=== PATIENT | male | born 1950 | race African-American/Black ===

== ENCOUNTER 2017-09-25 12:00 | Inpatient (IN) | payer OTHER ==
[2017-09-25 13:12] LABS: BASOPHIL 0.5 % (0-2.0); EOSINOPHIL 0.7 % (0-4.5); MCH 34.3 pg (25.7-33.7); MCHC 33.1 g/dl (32.0-35.9); MEAN CELL VOLUME 103.7 fl (80-96); MEAN PLT VOLUME 7.2 fl (7.5-11.1); NEUTROPHILS 74.6 % (42.8-82.8); PLATELET COUNT 194 K/MM3 (134-434); WHITE BLOOD COUNT 5.3 K/mm3 (4.0-10.0)
[2017-09-25 13:53] LABS: ALBUMIN 2.4 g/dl (3.4-5.0); ANION GAP 10 (8-16); BILIRUBIN,TOTAL 0.1 mg/dL (0.2-1.0); CALCIUM 8.4 mg/dL (8.5-10.1); CO2 19 mmol/L (21-32); GLUCOSE,RANDOM 108 mg/dL (74-106); SGOT/AST 11 U/L (15-37); SGPT/ALT 18 U/L (12-78)
[2017-09-25 13:58] LABS: ALK PHOS 101 U/L (45-117); CPK 194 IU/L (39-308); TROPONIN I < 0.02 ng/ml (0.00-0.05)
--- NOTE | 2017-09-25 13:59 | PDOC ---
History of Present Illness - General Chief Complaint: Revisit, Lab Variance Stated Complaint: LAB VARIANCE (TRANSFUSION) Time Seen by Provider: 09/25/17 12:33 History Source: Patient Exam Limitations: No Limitations - History of Present Illness Initial Comments: 09/25/17 13:59 67-year-old male with history of renal disease with sent over by Dr. David Yang for evaluation of increasing shortness of breath on exertion, fatigue, and dark stool. Patient denies chest pain, palpitations abdominal pain, nausea, bleeding gums, hematuria, or abdominal distention. Patient states has not received blood transfusions in the past. Timing/Duration: getting worse Severity: moderate Associated Symptoms: reports: shortness of breath, weakness. denies: nausea/ vomiting Past History - Travel Traveled outside of the country in the last 30 days: No - Past Medical History Allergies/Adverse Reactions: Allergies Allergy/AdvReac Type Severity Reaction Status Date / Time No Known Drug Allergies Allergy Verified 09/25/17 12:06 Home Medications: Ambulatory Orders Aspirin [Ecotrin] 81 mg PO DAILY 11/24/15 Cholecalciferol (Vitamin D3) [Vitamin D3] 1,000 unit PO DAILY #30 tablet Fenofibrate Nanocrystallized [Fenofibrate] 145 mg PO DAILY #30 tablet 04/12/16 Sildenafil Citrate [Viagra] 25 mg PO DAILY #10 tablet 04/19/16 Pravastatin Sodium [Pravachol] 40 mg PO DAILY #30 tablet 04/30/16 Amlodipine Besylate 10 mg PO DAILY #30 tablet 06/27/16 Sodium Fluoride/Potassium Nit [Prevident 5000 Enamel Protect] 100 ml DT BID #1 paste..ml. 02/13/17 Abacavir Sulfate [Ziagen -] 300 mg PO DAILY #60 tablet 03/07/17 Lamivudine [Epivir Hbv] 100 mg PO DAILY #30 tablet 05/20/17 Citalopram Hydrobromide [Citalopram HBr] 20 mg PO DAILY #30 tablet 08/20/17 Zolpidem Tartrate [Ambien] 5 mg PO HS #20 tablet MDD 5mg 08/20/17 Dolutegravir Sodium [Tivicay] 50 mg PO DAILY #30 tablet 09/03/17 Anemia: No Asthma: No Cancer: Yes (laryngeal / throat) Cardiac Disorders: No CVA: No COPD: No CHF: No DVT: No Dementia: No Diabetes: Yes GI Disorders: No Disorders: Yes HTN: Yes Hypercholesterolemia: Yes Liver Disease: No Seizures: No Thyroid Disease: Yes - Surgical History Abdominal Surgery: Yes (bilaterl inguinal hernia repair and undescend testis left) Appendectomy: No Cardiac Surgery: No Cholecystectomy: No Lung Surgery: No Neurologic Surgery: No Orthopedic Surgery: No - Reproductive History Testicular Surgery: No - Immunization History Immunization Up to Date: Yes - Suicide/Smoking/Psychosocial Hx Smoking History: Current every day smoker Have you smoked in the past 12 months: Yes Number of Cigarettes Smoked Daily: 10 Cigars Per Day: 0 Information on smoking cessation initiated: No 'Breaking Loose' booklet given: 11/27/15 Hx Alcohol Use: No Drug/Substance Use Hx: No Substance Use Type: None Hx Substance Use Treatment: Yes Patient Lives Alone: No Review of Systems - Review of Systems Able to Perform ROS?: Yes Constitutional: Yes: Weakness HEENTM: No: Symptoms Reported Respiratory: Yes: SOB with Exertion Cardiac (ROS): Yes: Lightheadedness ABD/GI: Yes: Other (dark stool). No: Symptoms Reported : No: Symptoms Reported Musculoskeletal: No: Symptoms Reported Integumentary: No: Symptoms Reported Neurological: Yes: Dizziness Hematologic/Lymphatic: Yes: See HPI *Physical Exam - Vital Signs Last Vital Signs Temp Pulse Resp BP Pulse Ox 98.2 F 103 H 16 141/68 09/25/17 12:06 09/25/17 12:06 09/25/17 12:06 09/25/17 12:06 - Physical Exam General Appearance: Yes: Nourished, Appropriately Dressed. No: Apparent Distress HEENT: positive: EOMI, VASYL, TMs Normal, Pharynx Normal. negative: Pale Conjunctivae Neck: positive: Supple Respiratory/Chest: positive: Lungs Clear, Normal Breath Sounds. negative: Respiratory Distress, Accessory Muscle Use Cardiovascular: positive: Regular Rhythm, Regular Rate (92 on monitor). negative: Murmur Gastrointestinal/Abdominal: positive: Soft. negative: Tenderness Rectal Exam: positive: other (brownish maroon stool on withdrawn glove. Sent for guaic testing). negative: hemorrhoids Extremity: positive: Normal Capillary Refill. negative: Pedal Edema Integumentary: positive: Normal Color, Dry, Warm Neurologic: positive: Motor Strength 5/5 (ambulatory) Heart Score/ECG Review - ECG Intrepretation Rhythm: Regular Rhythm (rate 87, nsr w/ sinus arrthymia) ED Treatment Course - LABORATORY CBC & Chemistry Diagram: 09/25/17 13:00 09/25/17 13:00 - ADDITIONAL ORDERS Additional order review: Laboratory Results 09/25/17 13:00 Crossmatch See Detail 09/25/17 13:00 RBC 2.01 L MCV 103.7 H MCHC 33.1 RDW 18.0 H MPV 7.2 L D Neutrophils % 74.6 Lymphocytes % 17.9 D Monocytes % 6.3 Eosinophils % 0.7 Basophils % 0.5 - RADIOLOGY Radiology Studies Ordered: Category Date Time Status CHEST PA & LAT [RAD] Stat Radiology 09/25/17 12:47 Completed Medical Decision Making - Medical Decision Making 09/25/17 13:33 Patient sent for shortness breath on exertion, lightheadedness and fatigue over the past 2 days worsening in severity. Patient sent in by storage battery inspector for evaluation of possible anemia. Patient is followed by Dr. Ba Thurman. Patient ordered for type and screen, labs, cardiac monitoring, guaiac testing, and EKG. 09/25/17 14:04 Laboratory Tests 09/25/17 09/25/17 09/25/17 13:00 13:00 13:00 WBC 5.3 Hgb 6.9 L* Hct 20.9 L MPV 7.2 L D Sodium 146 H Potassium 5.2 H Chloride 117 H Carbon Dioxide 19 L BUN 62 H Creatinine 8.6 H* Random Glucose 108 H Calcium 8.4 L Total Bilirubin 0.1 L D AST 11 L D Troponin I < 0.02 Stool Occult Blood Negative Patient ordered for 2 units of blood. Patient admitted to Dr. Loza to [facility] inpatient and consultation was placed for Dr. Nichelle Yang. Pt is followed at the [facility] for HIV. *DC/Admit/Observation/Transfer Diagnosis at time of Disposition: Encounter for blood transfusion, Anemia, Renal failure - Discharge Dispostion Admit: Yes - Referrals Referrals: Ba Thurman MD [Primary Care Provider] - - Patient Instructions - Post Discharge Activity
[2017-09-25 14:00] LABS: CREATININE 8.6 mg/dL (0.7-1.3)
--- NOTE | 2017-09-25 16:38 | CON.NEP ---
Consult Consult Specialty:: Nephrology Referred by:: Dr. 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 - History Source Limitations to Obtaining History: No Limitations - Past Medical History Cardio/Vascular: Yes: HTN, Hyperlipdemia Pulmonary: Yes: COPD Renal/: Yes: Renal Inusuff Infectious Disease: Yes: HIV - Past Surgical History Past Surgical History: Yes: Hernia Repair - Alcohol/Substance Use Hx Alcohol Use: No - Smoking History Smoking history: Current every day smoker Have you smoked in the past 12 months: Yes Aproximately how many cigarettes per day: 10 Home Medications - Allergies Allergies/Adverse Reactions: Allergies Allergy/AdvReac Type Severity Reaction Status Date / Time No Known Drug Allergies Allergy Verified 09/25/17 12:06 - Home Medications Home Medications: Ambulatory Orders Aspirin [Ecotrin] 81 mg PO DAILY 11/24/15 Cholecalciferol (Vitamin D3) [Vitamin D3] 1,000 unit PO DAILY #30 tablet Pravastatin Sodium [Pravachol] 40 mg PO DAILY #30 tablet 04/30/16 Amlodipine Besylate 10 mg PO DAILY #30 tablet 06/27/16 Sodium Fluoride/Potassium Nit [Prevident 5000 Enamel Protect] 100 ml DT BID #1 paste..ml. 02/13/17 Abacavir Sulfate [Ziagen -] 300 mg PO DAILY #60 tablet 03/07/17 Lamivudine [Epivir Hbv] 100 mg PO DAILY #30 tablet 05/20/17 Citalopram Hydrobromide [Citalopram HBr] 20 mg PO DAILY #30 tablet 08/20/17 Zolpidem Tartrate [Ambien] 5 mg PO HS #20 tablet MDD 5mg 08/20/17 Dolutegravir Sodium [Tivicay] 50 mg PO DAILY #30 tablet 09/03/17 Review of Systems - Review of Systems Constitutional: reports: Lethargy, Weakness. denies: Chills, Fever Eyes: reports: No Symptoms HENT: reports: No Symptoms Neck: reports: No Symptoms Cardiovascular: reports: Shortness of Breath. denies: Edema Respiratory: reports: SOB on Exertion. denies: Cough Gastrointestinal: reports: No Symptoms Genitourinary: reports: No Symptoms Breasts: reports: No Symptoms Reported Musculoskeletal: reports: No Symptoms Integumentary: reports: No Symptoms Neurological: reports: No Symptoms Nephrology Consult - Height Height: 6 ft 1 in - Weight Weight: 95.254 kg - BMI Body Mass Index (BMI): 27.7 - Lab Results CBC,BMP: CBC, BMP 09/25/17 13:00 09/25/17 13:00 Anion Gap: Anion Gap Anion Gap 10 (8-16) 09/25/17 13:00 - Imaging Chest X-ray: Report Reviewed - Physical Examination Vital Signs: Vital Signs Temperature 98.2 F 09/25/17 12:06 Pulse Rate 103 H 09/25/17 12:06 Respiratory Rate 16 09/25/17 12:06 Blood Pressure 141/68 09/25/17 12:06 O2 Sat by Pulse Oximetry (%) Assessment/Plan 67 year old gentleman with PMhx of 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 #Acute on Chronic Anemia #CKd stage 5 not yet on dialysis #Hypertension #DM Type 2 #HIV Stool occult bood negative check B12 and Folic acid levels as pt with high MCV To get 2 prbc today Will plan to given Epogen 67005 units in AM repeat cbc s/p transfusion no acute indication for [employer]EM[employer] PIPE repeat bmp in am continue HIV meds Will follow Full consult to follow Trey Pereyra DO
[2017-09-25 18:31] LABS: URINE APPEARANCE CLEAR; URINE BILIRUBIN NEGATIVE (NEGATIVE); URINE BLOOD NEGATIVE (NEGATIVE); URINE COLOR STRAW; URINE GLUCOSE (UA) 1+ (NEGATIVE); URINE KETONE NEGATIVE (NEGATIVE); URINE LEUK ESTERASE TRACE (NEGATIVE); URINE NITRITE NEGATIVE (NEGATIVE); URINE UROBILINOGEN NEGATIVE mg/dL (0.2-1.0)
[2017-09-25 18:49] LABS: URINE PROTEIN 2+ (NEGATIVE)
[2017-09-25 19:03] LABS: URINE BACTERIA FEW /hpf (NONE SEEN); URINE MUCUS RARE; URINE RBC 2 /hpf (0-3); URINE WBC 30 /hpf (3-5)
[2017-09-25 19:25] VITALS: BMI 25.2
[2017-09-25 19:59] LABS: URINE LEUK ESTERASE 1+ (NEGATIVE)
[2017-09-26] MEDS ORDERED: ZOLPIDEM TARTRATE 5 MG TABLET PO PRN (02:32)
--- NOTE | 2017-09-26 02:41 | HP ---
Admitting History and Physical - Past Medical History Cardiovascular: Yes: HTN, Hyperlipdemia Pulmonary: Yes: COPD Renal/: Yes: Renal Inusuff Infectious Disease: Yes: HIV - Past Surgical History Past Surgical History: Yes: Hernia Repair - Smoking History Smoking history: Current every day smoker Have you smoked in the past 12 months: Yes Aproximately how many cigarettes per day: 10 - Alcohol/Substance Use Hx Alcohol Use: No Home Medications - Allergies Allergies/Adverse Reactions: Allergies Allergy/AdvReac Type Severity Reaction Status Date / Time No Known Drug Allergies Allergy Verified 09/25/17 12:06 - Home Medications Home Medications: Ambulatory Orders Aspirin [Ecotrin] 81 mg PO DAILY 11/24/15 Cholecalciferol (Vitamin D3) [Vitamin D3] 1,000 unit PO DAILY #30 tablet Pravastatin Sodium [Pravachol] 40 mg PO DAILY #30 tablet 04/30/16 Amlodipine Besylate 10 mg PO DAILY #30 tablet 06/27/16 Sodium Fluoride/Potassium Nit [Prevident 5000 Enamel Protect] 100 ml DT BID #1 paste..ml. 02/13/17 Abacavir Sulfate [Ziagen -] 300 mg PO DAILY #60 tablet 03/07/17 Lamivudine [Epivir Hbv] 100 mg PO DAILY #30 tablet 05/20/17 Citalopram Hydrobromide [Citalopram HBr] 20 mg PO DAILY #30 tablet 08/20/17 Zolpidem Tartrate [Ambien] 5 mg PO HS #20 tablet MDD 5mg 08/20/17 Dolutegravir Sodium [Tivicay] 50 mg PO DAILY #30 tablet 09/03/17 Physical Examination Vital Signs: Vital Signs Temperature 98.3 F 09/25/17 21:00 Pulse Rate 87 09/25/17 21:00 Respiratory Rate 20 09/25/17 21:00 Blood Pressure 159/90 09/26/17 02:38 O2 Sat by Pulse Oximetry (%) 99 09/25/17 21:00 Labs: CBC, BMP 09/25/17 13:00 09/25/17 13:00
[2017-09-26 03:56] LABS: FERRITIN 20.643 ng/ml (16.4-293.9)
[2017-09-26 07:56] LABS: BASOPHIL 0.5 % (0-2.0); EOSINOPHIL 1.2 % (0-4.5); MCH 33.4 pg (25.7-33.7); MCHC 34.5 g/dl (32.0-35.9); MEAN CELL VOLUME 96.9 fl (80-96); MEAN PLT VOLUME 7.6 fl (7.5-11.1); NEUTROPHILS 67.1 % (42.8-82.8); PLATELET COUNT 170 K/MM3 (134-434); WHITE BLOOD COUNT 6.1 K/mm3 (4.0-10.0)
[2017-09-26 08:23] LABS: ANION GAP 6 (8-16); CALCIUM 7.9 mg/dL (8.5-10.1); CO2 19 mmol/L (21-32); GLUCOSE,RANDOM 94 mg/dL (74-106); MAGNESIUM 2.4 mg/dL (1.8-2.4); PHOSPHOROUS 4.6 mg/dL (2.5-4.9)
[2017-09-26 08:25] LABS: CREATININE 8.2 mg/dL (0.7-1.3)
[2017-09-26] MEDS ORDERED: PNEUMOC 13-VAL CONJ-DIP CRM/PF 0.5 ML DISP.SYRIN IM ONE (09:00)
[2017-09-26] MEDS ORDERED: [UNRECOGNIZED DRUG - OTHER] DT SCH (10:00)
[2017-09-26] MEDS ORDERED: SODIUM FLUORIDE DT SCH (10:00)
[2017-09-26] MEDS ORDERED: CITALOPRAM HYDROBROMIDE 20 MG TABLET (FP) PO SCH (10:00)
[2017-09-26] MEDS ORDERED: ASPIRIN COATED 81 MG TABLET.EC PO SCH (10:00)
[2017-09-26] MEDS ORDERED: ABACAVIR SULFATE 300 MG TABLET PO SCH (10:00)
[2017-09-26] MEDS ORDERED: DOLUTEGRAVIR SODIUM 50 MG TABLET PO SCH (10:00)
[2017-09-26] MEDS ORDERED: POTASSIUM NIT DT SCH (10:00)
[2017-09-26] MEDS ORDERED: LAMIVUDINE 100 MG PO SCH (10:00)
[2017-09-26] MEDS ORDERED: CHOLECALCIFEROL (VITAMIN D3) 1,000 UNIT TABLET (FP) PO SCH (10:00)
--- NOTE | 2017-09-26 10:47 | EKG ---
Test Reason : Blood Pressure : / mmHG Vent. Rate : 087 BPM Atrial Rate : 087 BPM P-R Int : 148 ms QRS Dur : 084 ms QT Int : 358 ms P-R-T Axes : 026 048 070 degrees QTc Int : 430 ms NORMAL SINUS RHYTHM WITH SINUS ARRHYTHMIA MINIMAL VOLTAGE CRITERIA FOR LVH, MAY BE NORMAL VARIANT NONSPECIFIC T WAVE ABNORMALITY ABNORMAL ECG WHEN COMPARED WITH ECG OF 12-APR-2006 14:28, NO SIGNIFICANT CHANGE WAS FOUND Confirmed by MD LUIS MIGUEL, DINESH ([id number]) on 09/26/2017 10:47:07 AM Referred By: Confirmed By:DINESH BOLANOS MD
[2017-09-26] MEDS ORDERED: IRON SUCROSE INJECTION 100 MG in SODIUM CHLORIDE 95 ML IVPB ONE (12:48)
--- NOTE | 2017-09-26 13:59 | PN ---
Progress Note (short form) - Note Progress Note: Renal follow up for CKD5 and Anemia Pt seen and examined at the bedside awake and alert no acute complaints feels much better Vital Signs Temperature 98.1 F 09/26/17 13:43 Pulse Rate 87 09/26/17 13:43 Respiratory Rate 20 09/26/17 13:43 Blood Pressure 154/91 09/26/17 13:43 O2 Sat by Pulse Oximetry (%) 100 09/26/17 09:00 Intake & Output 09/23/17 09/24/17 09/25/17 09/26/17 23:59 23:59 23:59 23:59 Intake Total 1340 Output Total 600 500 Balance -600 840 Weight 86.999 kg NAD RRR soft NT/ND No LE edmea CBC, BMP 09/26/17 07:35 09/26/17 07:35 Current Medications Abacavir Sulfate (Ziagen -) 300 mg PO DAILY [facility] Last Admin: 09/26/17 09:39 Dose: 300 mg Aspirin (Ecotrin -) 81 mg PO DAILY [facility] Last Admin: 09/26/17 09:37 Dose: 81 mg Atorvastatin Calcium (Lipitor -) 10 mg PO HS [facility]IMENEZ Cholecalciferol (Vitamin D3 -) 1,000 unit PO DAILY [facility] Last Admin: 09/26/17 09:38 Dose: 1,000 unit Citalopram Hydrobromide (Celexa -) 20 mg PO DAILY [facility] Last Admin: 09/26/17 09:37 Dose: 20 mg Epoetin Donovan (Procrit -) 20,000 unit SQ ONCE ONE Stop: 09/26/17 10:01 Iron Sucrose 100 mg/ Sodium (Chloride) 100 mls @ 200 mls/hr IVPB ONCE ONE Stop: 09/26/17 13:17 Non-Formulary Medication (Lamivudine [Epivir Hbv]) 100 mg PO DAILY [facility] Non-Formulary Medication (Sodium Fluoride/Potassium Nit [Prevident 5000 Enamel Protect]) 100 ml DT BID JIMENEZ Zolpidem Tartrate (Ambien -) 5 mg PO HS PRN PRN Reason: INSOMNIA 67 year old gentleman with PMhx of 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 #Acute on Chronic Anemia s/p 2 prbc transfusion good response to get Epogen 64528 units SC and Venofer 100mg IV #CKd stage 5 not yet on dialysis no acute indication for [employer] start sodium bicarb 650mg Daily outpatient HD access placement and planning ok for discharge from renal perspective Trey Pereyra DO
[2017-09-26] MEDS ORDERED: EPOETIN ALFA 20,000 UNIT/1 ML VIAL SQ ONE (16:45)
[2017-09-26 18:29] VITALS: BP 156/90; PULSE 84; TEMP 98.2
[2017-09-26] MEDS ORDERED: ATORVASTATIN CA 10 MG TABLET (FP) PO SCH (22:00)
[2017-09-27 06:11] LABS: SERUM IRON 45 ug/dL (38-169); TOTAL IRON BINDING CAPACITY 262 ug/dL (250-450); UIBC 217 ug/dL (111-343)
== END 2017-09-26 19:33 | disposition home or self-care (01) | DRG 683 ==
LOC: JER 12:00 → JERBED 14:06 → J7W 18:15
PROVIDERS: ADMIT Internal Medicine; ATTEND Internal Medicine
PROC: 30233N1 Transfusion of Nonautologous Red Blood Cells into Peripheral Vein, Percutaneous Approach (ICD-10-PCS; principal; 2017-09-25)
DX: I12.0 Hypertensive chronic kidney disease with stage 5 chronic kidney disease or end stage renal disease (principal); N18.5 Chronic kidney disease, stage 5; K92.1 Melena; D63.1 Anemia in chronic kidney disease; E11.21 Type 2 diabetes mellitus with diabetic nephropathy; E78.00 Pure hypercholesterolemia, unspecified; F17.210 Nicotine dependence, cigarettes, uncomplicated; Z21 Asymptomatic human immunodeficiency virus [HIV] infection status; J44.9 Chronic obstructive pulmonary disease, unspecified; Z85.21 Personal history of malignant neoplasm of larynx
CPT/HCPCS: 36415; 36430; 36511; 71020-TC; 80048; 80053; 81003; 81015; 82272; 82550; 82553; 82728; 83540; 83550; 83735; 84100; 84484; 84550; 85025; 86850; 86900; 86901; 86922; 90670; 93005; 93010; 99195; 99285-25; G0463-25; J0885; J1756; P9038; P9058

== ENCOUNTER 2017-11-24 14:21 | Inpatient (IN) | payer OTHER ==
--- NOTE | 2017-11-24 14:28 | PDOC ---
Rapid Medical Evaluation Time Seen by Provider: 11/24/17 14:23 Medical Evaluation: Allergies Allergy/AdvReac Type Severity Reaction Status Date / Time No Known Drug Allergies Allergy Verified 11/24/17 14:23 11/24/17 14:24 The patient presents with a chief complaint of: Needing blood transfusion, sent by Dr. Pereyra (nephrology). Had a blood transfusion one month ago here. Hx of anemia, HIV, diabetes. Denies GI bleed. Admits to palpitations, shortness of breath, lethargy I have performed a brief in-person evaluation of this patient; Pertinent physical exam findings: ambulatory, in no respiratory distress. Speaking in full sentences. VSS I have ordered the following: CBC, CMP, PT/INR, type and cross The patient will proceed to the ED for further evaluation.
--- NOTE | 2017-11-24 15:16 | PDOC ---
History of Present Illness - General History Source: Patient Exam Limitations: No Limitations - History of Present Illness Initial Comments: CHIEF COMPLAINT: 67 y/o afebrile male with PMH HTN, HLD, NIDDM, CKD, HIV, anemia, throat CA s/p RXT sent in by Dr. Pereyra for blood transfusion. HISTORY OF PRESENT ILLNESS: Patient states he had blood work drawn on Friday. He received a call today from his doctor telling him to come in for a blood transfusion. The patient states he does have the occasional dizzy spell but otherwise feels good. He denies f/c, n/v/d, Cp, SOB, palpitations. Vital signs on arrival are notable for pulse of 102. REVIEW OF SYSTEMS: GENERAL/CONSTITUTIONAL: No fever/chills. No weakness. No weight change. HEAD, EYES, EARS, NOSE AND THROAT: No change in vision. No ear pain or discharge. No sore throat. CARDIOVASCULAR: No chest pain or shortness of breath. RESPIRATORY: No cough, wheezing, or hemoptysis. GASTROINTESTINAL: No abd pain, nausea, vomiting, diarrhea. GENITOURINARY: No dysuria, frequency, or change in urination. MUSCULOSKELETAL: No joint or muscle swelling or pain. No neck or back pain. SKIN: No rash or easy bruising. NEUROLOGIC: +occasional dizziness. No headache, loss of consciousness, or loss of sensation. PHYSICAL EXAM: GENERAL: The patient is awake, alert, and fully oriented, in no acute distress. He is pleasant and well appearing. HEAD: Normal with no signs of trauma. ENT: Pupils equal, round and reactive to light, extraocular movements intact, sclera anicteric, conjunctiva clear. Gingiva pale LUNGS: Clear to auscultation bilaterally. Normal excursion. No respiratory distress or use of accessory muscles. CV: Rapid rate/regular rhythm, S1/S2, no MRG. Cap refill < 2 sec. ABDOMEN: Soft, non-distended, non-tender even to deep palpation, no hepatomegaly or splenomegaly, no masses. EXTREMITIES: Normal range of motion, no edema. NEUROLOGICAL: Normal speech, normal gait. CN II-XII grossly intact. PSYCH: Normal mood, normal affect. SKIN: Warm, dry, normal turgor, no rashes or lesions noted. <Alycia Graham - Last Filed: 11/24/17 18:48> <Nga Garcia - Last Filed: 12/01/17 12:48> - General Chief Complaint: Blood Transfusion Stated Complaint: BLOOD TRANSFUSION Time Seen by Provider: 11/24/17 14:23 Past History - Past Medical History Anemia: Yes Asthma: No Cancer: Yes (laryngeal / throat) Cardiac Disorders: No CVA: No COPD: No CHF: No DVT: No Dementia: No Diabetes: Yes GI Disorders: No Disorders: Yes HTN: Yes Hypercholesterolemia: Yes Liver Disease: No Seizures: No Thyroid Disease: Yes Other medical history: KIDNEY PROBLEMS - Surgical History Abdominal Surgery: Yes (bilaterl inguinal hernia repair and undescend testis left) Appendectomy: No Cardiac Surgery: No Cholecystectomy: No Lung Surgery: No Neurologic Surgery: No Orthopedic Surgery: No - Reproductive History Testicular Surgery: No - Immunization History Immunization Up to Date: Yes - Suicide/Smoking/Psychosocial Hx Smoking History: Current every day smoker Have you smoked in the past 12 months: Yes Number of Cigarettes Smoked Daily: 10 Cigars Per Day: 0 Information on smoking cessation initiated: Yes 'Breaking Loose' booklet given: 11/24/17 Hx Alcohol Use: No Drug/Substance Use Hx: No Substance Use Type: None Hx Substance Use Treatment: Yes <Alycia Graham - Last Filed: 11/24/17 18:48> <Nga Garcia - Last Filed: 12/01/17 12:48> - Past Medical History Allergies/Adverse Reactions: Allergies Allergy/AdvReac Type Severity Reaction Status Date / Time No Known Drug Allergies Allergy Verified 11/24/17 14:23 Home Medications: Ambulatory Orders Cholecalciferol (Vitamin D3) [Vitamin D3] 1,000 unit PO DAILY #30 tablet Pravastatin Sodium [Pravachol] 40 mg PO DAILY #30 tablet 04/30/16 Amlodipine Besylate 10 mg PO DAILY #30 tablet 06/27/16 Sodium Fluoride/Potassium Nit [Prevident 5000 Enamel Protect] 100 ml DT BID #1 paste..ml. 02/13/17 Abacavir Sulfate [Ziagen -] 300 mg PO DAILY #60 tablet 03/07/17 Lamivudine [Epivir Hbv] 100 mg PO DAILY #30 tablet 05/20/17 Dolutegravir Sodium [Tivicay] 50 mg PO DAILY #30 tablet 09/03/17 Ferrous Gluconate [Fergon -] 324 mg PO BID #60 tablet 09/26/17 Citalopram Hydrobromide [Citalopram HBr] 20 mg PO DAILY #30 tablet 10/30/17 Glipizide 2 tab PO DAILY 11/03/17 Tamsulosin HCl 1 tab PO DAILY 11/03/17 Zolpidem Tartrate [Ambien] 5 mg PO HS #30 tablet MDD 1 11/06/17 Atenolol [Tenormin] 25 mg PO DAILY #30 tablet 11/26/17 *Physical Exam - Vital Signs Last Vital Signs Temp Pulse Resp BP Pulse Ox 97.6 F 102 H 18 162/68 11/24/17 14:24 11/24/17 14:24 11/24/17 14:24 11/24/17 14:24 <Alycia Graham - Last Filed: 11/24/17 18:48> - Vital Signs Last Vital Signs Temp Pulse Resp BP Pulse Ox 97.2 F L 68 18 128/54 96 11/26/17 17:25 11/26/17 17:25 11/26/17 17:25 11/26/17 17:25 11/26/17 14:26 <Nga Garcia - Last Filed: 12/01/17 12:48> ED Treatment Course - LABORATORY CBC & Chemistry Diagram: 11/24/17 15:20 11/24/17 15:20 <Alycia Graham - Last Filed: 11/24/17 18:48> - LABORATORY CBC & Chemistry Diagram: 11/26/17 06:00 11/26/17 06:00 - ADDITIONAL ORDERS Additional order review: 11/25/17 11/25/17 11/25/17 13:22 11:49 06:45 RBC 2.56 L 2.55 L D MCV 92.1 92.7 D MCHC 32.3 32.6 RDW 24.8 H 24.9 H D MPV 6.9 L 7.0 L D Neutrophils % 71.1 Lymphocytes % 17.9 D Monocytes % 9.0 Eosinophils % 1.4 D Basophils % 0.6 POC Glucometer 114 11/25/17 11/24/17 11/24/17 06:39 23:36 15:20 RBC 1.81 L MCV 102.4 H MCHC 32.1 RDW 18.1 H MPV 7.8 Neutrophils % 80.4 Lymphocytes % 13.2 D Monocytes % 5.4 Eosinophils % 0.6 Basophils % 0.4 POC Glucometer 89 81 - Medications Given in the ED: ED Medications Discontinued Medications Generic Name Dose Route Start Last Admin Trade Name Freq PRN Reason Stop Dose Admin Abacavir Sulfate 600 mg 11/24/17 20:00 11/26/17 09:13 Ziagen - PO 600 mg DAILY [facility]IM[facility]Z Administration Albuterol/Ipratropium 1 amp 11/25/17 12:01 11/25/17 18:00 Duoneb - NEB 1 amp Q6H PRN Administration SHORTNESS OF BREATH Amlodipine Besylate 10 mg 11/24/17 20:00 11/26/17 09:13 Norvasc - PO Not Given DAILY JIMENEZ Atenolol 25 mg 11/25/17 12:15 11/26/17 09:13 Tenormin - PO Not Given DAILY JIMENEZ Atenolol 25 mg 11/26/17 13:30 11/26/17 15:07 Tenormin - PO 11/26/17 13:31 Not Given ONCE ONE Atorvastatin Calcium 10 mg 11/24/17 22:00 11/25/17 21:23 Lipitor - PO 10 mg HS [facility] Administration Cholecalciferol 1,000 unit 11/24/17 20:00 11/26/17 09:13 Vitamin D3 - PO Not Given DAILY JIMENEZ Citalopram Hydrobromide 20 mg 11/24/17 20:15 11/26/17 09:13 Celexa - PO Not Given DAILY [facility] Darbepoetin Donovan 40 mcg 11/26/17 16:09 11/26/17 18:24 Aranesp - SQ 11/26/17 16:10 40 mcg ONCE ONE Administration Ferrous Gluconate 324 mg 11/25/17 08:00 11/26/17 18:24 Fergon - PO 324 mg BIDWM JIMENEZ Administration Furosemide 20 mg 11/24/17 20:22 11/24/17 20:40 Lasix Injection - IVPUSH 11/24/17 20:23 20 mg ONCE ONE Administration Iron Sucrose 100 mg/ Sodium 100 mls @ 200 mls/hr 11/26/17 12:15 11/26/17 15: 07 Chloride IVPB 11/26/17 12:44 Not Given ONCE ONE Iron Sucrose 100 mg/ Sodium 105 mls @ 210 mls/hr 11/26/17 14:00 11/26/17 16: 10 Chloride IVPB 11/26/17 14:29 Not Given ONCE ONE Iron Sucrose 100 mg/ Sodium 105 mls @ 210 mls/hr 11/26/17 16:00 11/26/17 16: 10 Chloride IVPB 11/26/17 16:29 210 mls/hr ONCE ONE Administration Insulin Aspart 1 vial 11/24/17 22:00 11/26/17 16:57 Novolog Vial Sliding Scale - SQ Not Given ACHS JIMENEZ Protocol Lamivudine 100 mg 11/24/17 20:00 11/26/17 09:12 Epivir Oral Solution - PO 100 mg DAILY [facility] Administration Non-Formulary Medication 2 tab 11/24/17 20:00 11/24/17 20:31 Glipizide PO Not Given DAILY [facility] Oxycodone HCl 5 mg 11/26/17 13:03 11/26/17 15:34 Roxicodone - PO 11/27/17 13:02 5 mg Q4H PRN Administration Pain Level > 4 Tamsulosin HCl 0.4 mg 11/25/17 08:30 11/26/17 08:34 Flomax - PO 0.4 mg DAILY@0830 JIMENEZ Administration <Nga Garcia - Last Filed: 12/01/17 12:48> Medical Decision Making - Medical Decision Making A/P: 67 y/o male sent in by Dr. Pereyra for blood transfusion. Plan is as follows: 1. Labs 2. EKG 3. Stool for occult blood hemoglobin 5.9. Ordered 2 units PRBCs spoke with hospitalist for admission. Resident accepted for Dr. Vasquez. Patient aware of plan. *Pt is not currently on dialysis. <Alycia Graham - Last Filed: 11/24/17 18:48> *DC/Admit/Observation/Transfer - Discharge Dispostion Admit: Yes <Alycia Graham - Last Filed: 11/24/17 18:48> - Attestations Physician Attestion: I reviewed the case with the mid-level practitioner and agree with the mid- level practitioner's assessment, diagnosis and disposition. <Nga Garcia - Last Filed: 12/01/17 12:48> Diagnosis at time of Disposition: Anemia Qualifiers: Anemia type: unspecified type Qualified Code(s): D64.9 - Anemia, unspecified - Discharge Dispostion Disposition: HOME Condition at time of disposition: Improved
[2017-11-24 15:48] LABS: BASO % 0.4 % (0-2.0); EOS % 0.6 % (0-4.5); HEMATOCRIT 18.5 % (35.4-49); LYMPH % 13.2 % (8-40); MCH 32.8 pg (25.7-33.7); MCHC 32.1 g/dl (32.0-35.9); MEAN CELL VOLUME 102.4 fl (80-96); MEAN PLT VOLUME 7.8 fl (7.5-11.1); MONO % 5.4 % (3.8-10.2); NEUT % 80.4 % (42.8-82.8); PLATELET COUNT 215 K/MM3 (134-434); RBC 1.81 M/mm3 (4.00-5.60); RDW 18.1 % (11.9-15.9); RETICULOCYTES 4.12 % (0.5-1.5); WHITE BLOOD COUNT 4.6 K/mm3 (4.0-10.0)
[2017-11-24 16:01] LABS: HEMOGLOBIN 5.9 GM/dL (11.7-16.9)
[2017-11-24 16:12] LABS: INR 0.99 (0.82-1.09); PROTHROMBIN TIME (PATIENT) 11.2 SEC (9.98-11.88)
[2017-11-24 16:17] LABS: ALBUMIN 2.7 g/dl (3.4-5.0); ANION GAP 11 (8-16); BILIRUBIN,TOTAL 0.3 mg/dL (0.2-1.0); BLOOD UREA NITROGEN 71 mg/dL (7-18); CALCIUM 8.2 mg/dL (8.5-10.1); CHLORIDE 114 mmol/L (98-107); CO2 18 mmol/L (21-32); GLUCOSE,RANDOM 92 mg/dL (74-106); LDH 209 U/L (87-241); POTASSIUM 4.5 mmol/L (3.5-5.1); SGOT/AST 12 U/L (15-37); SGPT/ALT 17 U/L (12-78); SODIUM 143 mmol/L (136-145); TOT PROT 6.6 g/dl (6.4-8.2)
[2017-11-24 16:23] LABS: ALK PHOS 99 U/L (45-117)
[2017-11-24 16:29] LABS: CREATININE 9.8 mg/dL (0.7-1.3)
--- NOTE | 2017-11-24 19:09 | PN ---
Teaching Attending Note Name of Resident: Douglas Wood ATTENDING PHYSICIAN STATEMENT I saw and evaluated the patient. I reviewed the resident's note and discussed the case with the resident. I agree with the resident's findings and plan as documented. SUBJECTIVE: 67 M with HTN, HLD, COPD, HIV, hernia repair, throat ca s/p XRT who was sent in by Dr. Pereyra for blood transfusion. Pt. states he currently feels better after one transfusion. Currently denies shortness of breath, chest pain or pressure. States he still makes urine. OBJECTIVE: Physical: VS: Vital Signs Period Temp Pulse Resp BP Sys/Montes Pulse Ox Last 24 Hr 97.6 F-97.9 F 90-102 18-20 162-165/68-84 100-100 GEN: NAD, resting in bed, AA0X3 HEENT: NCAT, PERRL, poor dentition, throat without erythema or exudates CARD: RRR S1, S2 RESP: CTAB ABD: BSx4, NTD to palpation, mild distension EXT:- C/C/E CBCD WBC 4.6 K/mm3 (4.0-10.0) 11/24/17 15:20 RBC 1.81 M/mm3 (4.00-5.60) L 11/24/17 15:20 Hgb 5.9 GM/dL (11.7-16.9) L* D 11/24/17 15:20 Hct 18.5 % (35.4-49) L D 11/24/17 15:20 MCV 102.4 fl (80-96) H 11/24/17 15:20 MCHC 32.1 g/dl (32.0-35.9) 11/24/17 15:20 RDW 18.1 % (11.9-15.9) H 11/24/17 15:20 Plt Count 215 K/MM3 (134-434) D 11/24/17 15:20 MPV 7.8 fl (7.5-11.1) 11/24/17 15:20 CMP Sodium 143 mmol/L (136-145) 11/24/17 15:20 Potassium 4.5 mmol/L (3.5-5.1) 11/24/17 15:20 Chloride 114 mmol/L (98-107) H 11/24/17 15:20 Carbon Dioxide 18 mmol/L (21-32) L 11/24/17 15:20 Anion Gap 11 (8-16) 11/24/17 15:20 BUN 71 mg/dL (7-18) H 11/24/17 15:20 Creatinine 9.8 mg/dL (0.7-1.3) H* 11/24/17 15:20 Creat Clearance w eGFR 5.38 (>60) 11/24/17 15:20 Random Glucose 92 mg/dL (74-106) 11/24/17 15:20 Calcium 8.2 mg/dL (8.5-10.1) L 11/24/17 15:20 Total Bilirubin 0.3 mg/dL (0.2-1.0) D 11/24/17 15:20 AST 12 U/L (15-37) L 11/24/17 15:20 ALT 17 U/L (12-78) 11/24/17 15:20 Alkaline Phosphatase 99 U/L (45-117) 11/24/17 15:20 Total Protein 6.6 g/dl (6.4-8.2) 11/24/17 15:20 Albumin 2.7 g/dl (3.4-5.0) L 11/24/17 15:20 Ambulatory Orders Cholecalciferol (Vitamin D3) [Vitamin D3] 1,000 unit PO DAILY #30 tablet Pravastatin Sodium [Pravachol] 40 mg PO DAILY #30 tablet 04/30/16 Amlodipine Besylate 10 mg PO DAILY #30 tablet 06/27/16 Sodium Fluoride/Potassium Nit [Prevident 5000 Enamel Protect] 100 ml DT BID #1 paste..ml. 02/13/17 Abacavir Sulfate [Ziagen -] 300 mg PO DAILY #60 tablet 03/07/17 Lamivudine [Epivir Hbv] 100 mg PO DAILY #30 tablet 05/20/17 Dolutegravir Sodium [Tivicay] 50 mg PO DAILY #30 tablet 09/03/17 Ferrous Gluconate [Fergon -] 324 mg PO BID #60 tablet 09/26/17 Citalopram Hydrobromide [Citalopram HBr] 20 mg PO DAILY #30 tablet 10/30/17 Glipizide 2 tab PO DAILY 11/03/17 Nifedipine 1 tab PO DAILY 11/03/17 Tamsulosin HCl 1 tab PO DAILY 11/03/17 Zolpidem Tartrate [Ambien] 5 mg PO HS #30 tablet MDD 1 11/06/17 EKG: NSR QtC 444 ASSESSMENT AND PLAN: 67 M with HTN, HLD, COPD, HIV, hernia repair, throat ca s/p XRT who was sent in by Dr. Pereyra for blood transfusion, found to be anemic 1.) Symptomatic Anemia - Macrocytic - B12/Folate - Stool Occult- negative - CBC Q 12hr - Keep Hgb>7 - EPO level 2.) HLD - C/W Statin 3.) HIV - C/W Home meds 4.) CKD - Nephro consult 5.) Dvt Ppx - Ambulate Place in Obs-Tele
--- NOTE | 2017-11-24 19:46 | HP ---
CHIEF COMPLAINT: sent by Dr. Pereyra for blood transfusion PCP: Dr. Pereyra HISTORY OF PRESENT ILLNESS: 67 y/o M with PMH HTN, HLD, NIDDM, CKD (not on dialysis), HIV (on Ziagen, Epivir , Tivicay), hx past transfusion [facility] 09/25/17 (Hb 6.9; received 2 units PRBCs), who was sent to the ED for blood transfusion. As per pt, he had an appointment at [facility] on Friday for lab work, and Dr. Pereyra was subsequently contacted since his Hb was low. For this reason, Dr. Pereyra suggested pt come to the ED for blood transfusion. Over the last 2-3 days, pt also endorsed worsening lightheadedness and SOB (more than baseline), as well as chronic dark BMs ( takes iron), constipation and increased urinary frequency. Otherwise, he denies COX, fever, chills, palpitations, syncopal episodes, chest pain, or active bleeding. 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 Has thoughts of quitting, but hasn 't yet Alcohol: stopped drinking 8 yrs ago, previously drank 3-4 shots of liquor/ daily. States that he was in detox Drugs: smoked marijuana 30-40 yrs ago Family History: mother- recently passed from stomach cancer Allergies No Known Drug Allergies Allergy (Verified 11/24/17 14:23) HOME MEDICATIONS: Home Medications Medication Instructions Recorded Cholecalciferol (Vitamin D3) 1,000 unit PO DAILY #30 tablet 04/05/16 [Vitamin D3] Pravastatin Sodium [Pravachol] 40 mg PO DAILY #30 tablet 04/30/16 Amlodipine Besylate 10 mg PO DAILY #30 tablet 06/27/16 Sodium Fluoride/Potassium Nit 100 ml DT BID #1 paste..ml. 02/13/17 [Prevident 5000 Enamel Protect] Abacavir Sulfate [Ziagen -] 300 mg PO DAILY #60 tablet 03/07/17 Lamivudine [Epivir Hbv] 100 mg PO DAILY #30 tablet 05/20/17 Dolutegravir Sodium [Tivicay] 50 mg PO DAILY #30 tablet 09/03/17 Ferrous Gluconate [Fergon -] 324 mg PO BID #60 tablet 09/26/17 Citalopram Hydrobromide 20 mg PO DAILY #30 tablet 10/30/17 [Citalopram HBr] Glipizide 2 tab PO DAILY 11/03/17 Nifedipine 1 tab PO DAILY 11/03/17 Tamsulosin HCl 1 tab PO DAILY 11/03/17 Zolpidem Tartrate [Ambien] 5 mg PO HS #30 tablet MDD 1 11/06/17 REVIEW OF SYSTEMS CONSTITUTIONAL: Absent: fever, chills, diaphoresis, generalized weakness, malaise, loss of appetite, weight change HEENT: Absent: rhinorrhea, nasal congestion, throat pain, throat swelling, difficulty swallowing, mouth swelling, ear pain, eye pain, visual changes CARDIOVASCULAR: +lightheadedness Absent: chest pain, syncope, palpitations, irregular heart rate, peripheral edema RESPIRATORY: +SOB Absent: cough, dyspnea with exertion, orthopnea, wheezing, stridor, hemoptysis GASTROINTESTINAL: +constipation, melena Absent: abdominal pain, abdominal distension, nausea, vomiting, diarrhea, hematochezia GENITOURINARY: Absent: dysuria, frequency, urgency, hesitancy, hematuria, flank pain, genital pain MUSCULOSKELETAL: Absent: myalgia, arthralgia, joint swelling, back pain, neck pain SKIN: Absent: rash, itching, pallor HEMATOLOGIC/IMMUNOLOGIC: Absent: easy bleeding, easy bruising, lymphadenopathy, frequent infections ENDOCRINE: Absent: unexplained weight gain, unexplained weight loss, heat intolerance, cold intolerance NEUROLOGIC: Absent: headache, focal weakness or paresthesias, dizziness, unsteady gait, seizure, mental status changes, bladder or bowel incontinence PSYCHIATRIC: Absent: anxiety, depression, suicidal or homicidal ideation, hallucinations. PHYSICAL EXAMINATION Vital Signs 11/24/17 14:24 Temperature 97.6 F Pulse Rate 102 H Pulse Rate [ Right Radial] Respiratory 18 Rate Blood Pressure 162/68 Blood Pressure [Left Arm] O2 Sat by Pulse Oximetry (%) 11/24/17 18:55 Temperature 98.2 F Pulse Rate Pulse Rate [ 92 H Right Radial] Respiratory 20 Rate Blood Pressure Blood Pressure 179/90 [Left Arm] O2 Sat by Pulse 100 Oximetry (%) GENERAL: Resting comfortably. Awake, alert, and fully oriented, in no acute distress. HEAD: Normal with no signs of trauma. EYES: Pupils equal, round and reactive to light, extraocular movements intact, sclera icteric, conjunctiva clear. EARS, NOSE, THROAT: Ears normal, nares patent, oropharynx clear without exudates. Dry mucous membranes NECK: Normal range of motion, supple without lymphadenopathy LUNGS: decreased breath sounds, faint crackles appreciated lower bases HEART: Regular rate and rhythm, normal S1 and S2 without murmur, rub or gallop. ABDOMEN: Soft, nontender, mildly distended, normoactive bowel sounds, no guarding, no rebound LOWER EXTREMITIES: 2+ posterior tibial pulses, warm, well-perfused. No calf tenderness. No peripheral edema. NEUROLOGICAL: Cranial nerves II-XII intact. Laboratory Results 11/24/17 11/24/17 11/24/17 15:20 15:20 15:20 WBC 4.6 RBC 1.81 L Hgb 5.9 L* D Hct 18.5 L D MCV 102.4 H MCH 32.8 MCHC 32.1 RDW 18.1 H Plt Count 215 D MPV 7.8 Neutrophils % 80.4 Lymphocytes % 13.2 D Monocytes % 5.4 Eosinophils % 0.6 Basophils % 0.4 Retic Count 4.12 H PT with INR 11.20 INR 0.99 Sodium 143 Potassium 4.5 Chloride 114 H Carbon Dioxide 18 L Anion Gap 11 BUN 71 H Creatinine 9.8 H* Creat Clearance w eGFR 5.38 Random Glucose 92 Calcium 8.2 L Ferritin 63.763 Total Bilirubin 0.3 D AST 12 L ALT 17 Alkaline Phosphatase 99 LD Total 209 Total Protein 6.6 Albumin 2.7 L ASSESSMENT/PLAN: 67 y/o M with PMH HTN, HLD, NIDDM, CKD (not on dialysis), HIV (on Ziagen, Epivir , Tivicay), hx past transfusion [facility] 09/25/17 (Hb 6.9; received 2 units PRBCs), who was sent to the ED for blood transfusion. Pt admitted to obs-tele for follow up. #Macrocytic anemia -To receive 2U PRBCs; has received 1U thus far -Stool occult (-) -F/u post transfusion CBC -Maintain Hb>7 -Lasix 20mg IVP stat, as pt with faint crackles -F/u B12, Folate -F/u EPO level #HTN-uncontrolled -Continue amlodipine 10mg PO qd #HLD -Continue Pravastatin 40mg PO qd #NIDDM -ISS ACHS -BGM #CKD -BUN/Cr: 71/9.8 -Nephro consult- Dr. Pereyra #HIV -Continue Ziagen 300mg PO qd -Epivir 100mg PO qd -Tivicay 50mg PO qd #PPX -early ambulation #F/E/N -no fluids at this time -Monitor electrolytes -Sodium controlled and diabetic diet #Dispo Monitoring on obs tele Visit type - Emergency Visit Emergency Visit: Yes ED Registration Date: 11/24/17 Care time: The patient presented to the Emergency Department on the above date and was hospitalized for further evaluation of their emergent condition. - New Patient This patient is new to me today: Yes Date on this admission: 11/25/17 - Critical Care Critical Care patient: No
[2017-11-24] MEDS ORDERED: GLIPIZIDE PO SCH (20:00)
[2017-11-24] MEDS ORDERED: FUROSEMIDE 40 MG/4 ML INJECTABLE VIAL IVPUSH ONE (20:22)
[2017-11-24] MEDS ORDERED: amLODIPine BESYLATE 5 MG TABLET (FP) ONE (20:35)
[2017-11-24] MEDS ORDERED: FUROSEMIDE 40 MG/4 ML INJECTABLE VIAL ONE (20:35)
[2017-11-24] MEDS ORDERED: CITALOPRAM HYDROBROMIDE 10 MG TABLET (FP) ONE (20:35)
[2017-11-24] MEDS: amLODIPine BESYLATE 10 MG TABLET (FP) PO SCH ×2 (20:40→23:24)
[2017-11-24] MEDS: CITALOPRAM HYDROBROMIDE 20 MG TABLET (FP) PO SCH (20:40)
[2017-11-24] MEDS ORDERED: SODIUM FLUORIDE DT SCH (22:00)
[2017-11-24] MEDS ORDERED: ZOLPIDEM TARTRATE 5 MG TABLET PO PRN (22:00)
[2017-11-24] MEDS ORDERED: POTASSIUM NIT DT SCH (22:00)
[2017-11-24] MEDS ORDERED: [UNRECOGNIZED DRUG - OTHER] DT SCH (22:00)
[2017-11-24] MEDS: CHOLECALCIFEROL (VITAMIN D3) 1,000 UNIT TABLET (FP) PO SCH (23:23)
[2017-11-24] MEDS: ATORVASTATIN CA 10 MG TABLET (FP) PO SCH (23:24)
[2017-11-24] MEDS: lamiVUDine 10 MG/1 ML BULK BOTTLE PO SCH (23:26)
[2017-11-24] MEDS: ABACAVIR SULFATE 300 MG TABLET PO SCH (23:26)
[2017-11-24] MEDS: DOLUTEGRAVIR SODIUM 50 MG TABLET PO SCH (23:26)
[2017-11-24] MEDS: INSULIN SLIDING SCALE (NOVOLOG) 1 VIAL SQ SCH (23:59)
[2017-11-25 03:57] VITALS: BMI 23.5
[2017-11-25] MEDS: INSULIN SLIDING SCALE (NOVOLOG) 1 VIAL SQ SCH ×4 (06:39→21:22)
[2017-11-25 07:53] LABS: ANION GAP 10 (8-16); BLOOD UREA NITROGEN 70 mg/dL (7-18); CALCIUM 8.4 mg/dL (8.5-10.1); CHLORIDE 116 mmol/L (98-107); CO2 18 mmol/L (21-32); GLUCOSE,RANDOM 72 mg/dL (74-106); POTASSIUM 4.6 mmol/L (3.5-5.1); SODIUM 144 mmol/L (136-145)
[2017-11-25 08:09] LABS: BASO % 0.6 % (0-2.0); EOS % 1.4 % (0-4.5); HEMATOCRIT 23.6 % (35.4-49); HEMOGLOBIN 7.7 GM/dL (11.7-16.9); LYMPH % 17.9 % (8-40); MCH 30.2 pg (25.7-33.7); MCHC 32.6 g/dl (32.0-35.9); MEAN CELL VOLUME 92.7 fl (80-96); NEUT % 71.1 % (42.8-82.8); PLATELET COUNT 213 K/MM3 (134-434); RBC 2.55 M/mm3 (4.00-5.60); RDW 24.9 % (11.9-15.9); WHITE BLOOD COUNT 5.8 K/mm3 (4.0-10.0)
[2017-11-25 08:27] LABS: CREATININE 9.2 mg/dL (0.7-1.3)
--- NOTE | 2017-11-25 09:53 | CONSULT ---
Consult Consult Specialty:: Nephrology Referred by:: Dr. Vasquez Reason for Consultation:: CKD stage 5 - History of Present Illness Chief Complaint: i need blood History of Present Illness: 67 y/o M with PMH HTN, HLD, NIDDM, CKD stage 5 not on dialysis, HIV (on Ziagen, Epivir, Tivicay), presents to the ED at the direction of his vice president quality for blood transfusions. Patient explains he has blood work done at [facility] this past friday and was called after it was noted he had significant anemia and told to go to the ED for blood transfusions. He denies nausea vomiting fever chest pain hematuria or dysuria. He endorses increased urinary frequency lightheadedness, chills and shortness of breath. He endorses he feels better not after receiving blood transfusions. Patient still makes urine. He endorses black stools and he is on iron supplementation. In the ER patient's Hb was 5.9 and BUN/Cr 71/9.8. Patient was recently at [facility] for blood on September 25, 2017. - History Source History Provided By: Patient, Medical Record Limitations to Obtaining History: Clinical Condition - Past Medical History Cardio/Vascular: Yes: HTN, Hyperlipdemia Pulmonary: Yes: COPD Renal/: Yes: Renal Inusuff (stage 5 no on dialysis) Heme/Onc: Yes: Anemia Infectious Disease: Yes: HIV (on HAART sees Dr. Joiner at [facility] ) Endocrine: Yes: Diabetes Mellitus - Past Surgical History Past Surgical History: Yes: Hernia Repair - Alcohol/Substance Use Hx Alcohol Use: No - Smoking History Smoking history: Current every day smoker Have you smoked in the past 12 months: Yes Aproximately how many cigarettes per day: 10 Home Medications - Allergies Allergies/Adverse Reactions: Allergies Allergy/AdvReac Type Severity Reaction Status Date / Time No Known Drug Allergies Allergy Verified 11/24/17 14:23 - Home Medications Home Medications: Ambulatory Orders Cholecalciferol (Vitamin D3) [Vitamin D3] 1,000 unit PO DAILY #30 tablet Pravastatin Sodium [Pravachol] 40 mg PO DAILY #30 tablet 04/30/16 Amlodipine Besylate 10 mg PO DAILY #30 tablet 06/27/16 Sodium Fluoride/Potassium Nit [Prevident 5000 Enamel Protect] 100 ml DT BID #1 paste..ml. 02/13/17 Abacavir Sulfate [Ziagen -] 300 mg PO DAILY #60 tablet 03/07/17 Lamivudine [Epivir Hbv] 100 mg PO DAILY #30 tablet 05/20/17 Dolutegravir Sodium [Tivicay] 50 mg PO DAILY #30 tablet 09/03/17 Ferrous Gluconate [Fergon -] 324 mg PO BID #60 tablet 09/26/17 Citalopram Hydrobromide [Citalopram HBr] 20 mg PO DAILY #30 tablet 10/30/17 Glipizide 2 tab PO DAILY 11/03/17 Nifedipine 1 tab PO DAILY 11/03/17 Tamsulosin HCl 1 tab PO DAILY 11/03/17 Zolpidem Tartrate [Ambien] 5 mg PO HS #30 tablet MDD 1 11/06/17 Review of Systems - Review of Systems Constitutional: reports: Chills, Weakness Eyes: reports: No Symptoms HENT: reports: No Symptoms Cardiovascular: reports: Shortness of Breath, Other (lightheadedness) Respiratory: reports: SOB Gastrointestinal: reports: Other (black stools) Genitourinary: reports: Frequency Musculoskeletal: reports: No Symptoms Neurological: reports: No Symptoms Endocrine: reports: No Symptoms Hematology/Lymphatic: reports: Other (transfusions) Psychiatric: reports: No Symptoms Physical Exam Vital Signs: Vital Signs Temperature 98 F 11/25/17 06:00 Pulse Rate 94 H 11/25/17 06:00 Respiratory Rate 20 11/25/17 06:00 Blood Pressure 160/70 11/25/17 06:00 O2 Sat by Pulse Oximetry (%) 100 11/24/17 21:00 Constitutional: Yes: No Distress, Calm, Cachectic Eyes: Yes: Other (conjunctival pallor) HENT: No: Thrush Neck: Yes: Supple Cardiovascular: Yes: Regular Rate and Rhythm Respiratory: Yes: Diminished (at bases), Other (coarse breath sounds bilaterally worse anteriorly) Gastrointestinal: Yes: Normal Bowel Sounds, Soft. No: Tenderness Edema: No Neurological: Yes: Alert, Oriented ...Motor Strength: WNL Labs: CBC, BMP 11/25/17 06:45 11/25/17 06:45 Imaging - Results Chest X-ray: Image Reviewed Assessment/Plan 67M with multiple medical problems presents to the ED with acute on chronic symptomatic anemia requiring blood transfusion. Acute on chronic symptomatic anemia: likely due to CKD Anemia of chronic disease already received 2 units PRBCs Start epogen transfuse 2 additional units PRBCs stage 5 CKD discussed dialysis with attending and patient-patient refusing to start dialysis on this admission R/B/A expalined to patient in detail and he understands the risks, benefits and alternatives Patient amenable to having an AV graft placed and will start dialysis as outpatient avoid nephrotoxic drugs vascular Sx consult renally dose all meds continue sodium bicarb Check Phosphorus and trend Calcium levels for Renal osteodystrophy HTN: continue amlodipine atenolol added HLD: continue statin HIV: Continue HAART consider ID consult DM: ISS Fingersticks Will follow Thank you for this consultative opportunity Case discussed with attending Dr. Pereyra
[2017-11-25] MEDS ORDERED: PT OWN MED DRAWER 7, Y5N ONE (10:35)
[2017-11-25] MEDS: amLODIPine BESYLATE 10 MG TABLET (FP) PO SCH (10:44)
[2017-11-25] MEDS: CITALOPRAM HYDROBROMIDE 20 MG TABLET (FP) PO SCH (10:44)
[2017-11-25] MEDS: TAMSULOSIN HCL 0.4 MG CAP.ER.24H (FP) PO SCH (10:44)
[2017-11-25] MEDS: FERROUS GLUCONATE 324 MG TAB (FP) PO SCH ×2 (10:44→17:22)
[2017-11-25] MEDS: CHOLECALCIFEROL (VITAMIN D3) 1,000 UNIT TABLET (FP) PO SCH (10:44)
[2017-11-25] MEDS ORDERED: ALBUTEROL SO4 2.5/IPRATROPIUM 0.5 INH SOL 3 ML VIAL.NEB. NEB PRN (12:01)
--- NOTE | 2017-11-25 12:09 | PN ---
Teaching Attending Note Name of Resident: Diego Vega (Nephrology) ATTENDING PHYSICIAN STATEMENT I saw and evaluated the patient. I reviewed the resident's note and discussed the case with the resident. I agree with the resident's findings and plan as documented. SUBJECTIVE: OBJECTIVE: Vital Signs Temperature 98.2 F 11/25/17 10:00 Pulse Rate 100 H 11/25/17 10:00 Respiratory Rate 18 11/25/17 10:00 Blood Pressure 162/72 11/25/17 10:00 O2 Sat by Pulse Oximetry (%) 100 11/24/17 21:00 Intake & Output 11/22/17 11/23/17 11/24/17 11/25/17 23:59 23:59 23:59 23:59 Intake Total 750 Output Total 400 1250 Balance -400 -500 Weight 80.768 kg NAD awake and alert RRR Dec BS right lung base soft NT/ND no LE edema CBC, BMP 11/25/17 06:45 11/25/17 06:45 Current Medications Abacavir Sulfate (Ziagen -) 600 mg PO DAILY [facility] Last Admin: 11/24/17 23:26 Dose: Not Given Albuterol/Ipratropium (Duoneb -) 1 amp NEB Q6H PRN PRN Reason: SHORTNESS OF BREATH Amlodipine Besylate (Norvasc -) 10 mg PO DAILY [facility] Last Admin: 11/25/17 10:44 Dose: 10 mg Atenolol (Tenormin -) 25 mg PO DAILY [facility] Atorvastatin Calcium (Lipitor -) 10 mg PO HS [facility] Last Admin: 11/24/17 23:24 Dose: 10 mg Cholecalciferol (Vitamin D3 -) 1,000 unit PO DAILY [facility] Last Admin: 11/25/17 10:44 Dose: 1,000 unit Citalopram Hydrobromide (Celexa -) 20 mg PO DAILY [facility] Last Admin: 11/25/17 10:44 Dose: 20 mg Ferrous Gluconate (Fergon -) 324 mg PO BIDWM [facility] Last Admin: 11/25/17 10:44 Dose: 324 mg Insulin Aspart (Novolog Vial Sliding Scale -) 1 vial SQ ACHS [facility] PRN Reason: Protocol Last Admin: 11/25/17 11:50 Dose: Not Given Lamivudine (Epivir Oral Solution -) 100 mg PO DAILY [facility] Last Admin: 11/24/17 23:26 Dose: Not Given Non-Formulary Medication (Sodium Fluoride/Potassium Nit [Prevident 5000 Enamel Protect]) 100 ml DT BID [facility] Tamsulosin HCl (Flomax -) 0.4 mg PO DAILY@0830 [facility] Last Admin: 11/25/17 10:44 Dose: 0.4 mg Zolpidem Tartrate (Ambien -) 5 mg PO HS PRN PRN Reason: INSOMNIA ASSESSMENT AND PLAN: 67 year old gentleman with PMhx of 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 #Acute on Chronic Anemia Likely due to low Hgb production in setting of CKD stool occult blood is negative s/p 2 unit prbc transfused will give additional 2 units today give Epogen 57839 units SC #CKD stage 5 pt advsied that given his eGFR < 10 that he should start dialysis this admission but he refused the risks of deferring dialysis were made aware to him he is agreeable to having a AVG placed this admission will consult Dr. Lan to see him no emergent indication for dialysis at this time no ELIAS/ARB, NSAIDs continue soidum bicarb 650mg BID #Hypertension Continue Amlodpine 10mg Add Atenolol 25mg Daily Goal BP < 140/90 #Renal Osteodystrophy Check Phos and trend Ca levels Thank you Trey Pereyra DO
[2017-11-25] MEDS: ATENOLOL 25 MG TABLET (FP) PO SCH (12:45)
[2017-11-25] MEDS: ABACAVIR SULFATE 300 MG TABLET PO SCH (12:46)
[2017-11-25] MEDS: lamiVUDine 10 MG/1 ML BULK BOTTLE PO SCH (12:46)
[2017-11-25] MEDS: DOLUTEGRAVIR SODIUM 50 MG TABLET PO SCH (12:47)
[2017-11-25 13:51] LABS: HEMATOCRIT 23.6 % (35.4-49); HEMOGLOBIN 7.6 GM/dL (11.7-16.9); MCH 29.7 pg (25.7-33.7); MCHC 32.3 g/dl (32.0-35.9); MEAN CELL VOLUME 92.1 fl (80-96); MEAN PLT VOLUME 6.9 fl (7.5-11.1); PLATELET COUNT 202 K/MM3 (134-434); RBC 2.56 M/mm3 (4.00-5.60); RDW 24.8 % (11.9-15.9)
--- NOTE | 2017-11-25 13:57 | PN ---
Teaching Attending Note Name of Resident: Michael Vogel ATTENDING PHYSICIAN STATEMENT I saw and evaluated the patient. I reviewed the resident's note and discussed the case with the resident. I agree with the resident's findings and plan as documented. SUBJECTIVE:states that the dyspnea and dizzyness is now improved since completing the blood. states he has noted darker stools than usual but has also been on iron supplements for the past month. also with 30 lb weight loss since this summer when he was diagnosed with laryngeal cancer. states food hs not tasted the same since completing radiation therapy so has had no desire to eat food. 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 Symptomatic Anemia-iron def anemia seen on recent lab work from last month and started on iron supplementation. s/p 2 units PRBC overnight. will tranfuse an additional 2 units due to multiple comorbidities. FOBT negative. spoke with PMD, Dr Joiner. whom agrees likely due to medical disease and not acute blood loss. will f/u as outpatient. f/u iron supplementation 2. CKD stage V- neprhology consulted. will need HD shortly. Vascular surgery consulted for vein mapping and fistula placement 3. HTN- uncontrolled. started on atenolol by nephrology. will need to confirm home medications. (listed 2 different calcium channel blockers) 4. HIV- HARRT therapy. f/u in [facility] 5. Dysgeusia- likely due to radiation therapy. ate breakfast without difficulty. continue nephro shakes. 6. Squamous cell ca of throat- outpatient follow up 7. DVT ppx- EAM.
--- NOTE | 2017-11-25 14:24 | PN ---
Physical Exam: SUBJECTIVE: Patient seen and examined. s/p 2 Units of PRBC overnight. Says he feels much better today, especially after blood transfusion. Patient also stated he's been having darker stools the past few months but it was after he started iron supplements. He also noticed a 30 pound unintentional weight loss since the summer time after being diagnosed with laryngeal cancer. Denies sob, dizziness, fatigue, nausea, vomiting, chest pain. OBJECTIVE: Vital Signs Period Temp Pulse Resp BP Sys/Montes Pulse Ox Last 24 Hr 97.6 F-98.3 F 90-100 15-20 138-179/70-90 100-100 GENERAL: The patient is awake, alert, and fully oriented, in no acute distress. HEAD: Normal with no signs of trauma. EYES: sclera anicteric, pale conjunctiva. ENT: oropharynx clear without exudates, moist mucous membranes. NECK: supple. LUNGS: Breath sounds equal, clear to auscultation bilaterally, no wheezes, no crackles, no accessory muscle use. HEART: Regular rate and rhythm, S1, S2 without murmur, rub or gallop. ABDOMEN: Soft, nontender, nondistended, normoactive bowel sounds, no guarding, no rebound, no hepatosplenomegaly, no masses. EXTREMITIES: 2+ pulses, warm, well-perfused, no edema. NEUROLOGICAL: Cranial nerves II through XII grossly intact. Normal speech, gait not observed. PSYCH: Normal mood, normal affect. SKIN: Warm, dry, normal turgor, no rashes or lesions noted Laboratory Results - last 24 hr 11/24/17 11/24/17 11/24/17 15:20 15:20 15:20 WBC 4.6 RBC 1.81 L Hgb 5.9 L* D Hct 18.5 L D MCV 102.4 H MCH 32.8 MCHC 32.1 RDW 18.1 H Plt Count 215 D MPV 7.8 Neutrophils % 80.4 Lymphocytes % 13.2 D Monocytes % 5.4 Eosinophils % 0.6 Basophils % 0.4 Retic Count 4.12 H PT with INR 11.20 INR 0.99 Sodium 143 Potassium 4.5 Chloride 114 H Carbon Dioxide 18 L Anion Gap 11 BUN 71 H Creatinine 9.8 H* Creat Clearance w eGFR 5.38 POC Glucometer Random Glucose 92 Calcium 8.2 L Ferritin 63.763 Total Bilirubin 0.3 D AST 12 L ALT 17 Alkaline Phosphatase 99 LD Total 209 Total Protein 6.6 Albumin 2.7 L Vitamin B12 Serum Folate Stool Occult Blood Blood Type Antibody Screen Crossmatch 11/24/17 11/24/17 11/24/17 15:20 15:20 23:36 WBC RBC Hgb Hct MCV MCH MCHC RDW Plt Count MPV Neutrophils % Lymphocytes % Monocytes % Eosinophils % Basophils % Retic Count PT with INR INR Sodium Potassium Chloride Carbon Dioxide Anion Gap BUN Creatinine Creat Clearance w eGFR POC Glucometer 81 Random Glucose Calcium Ferritin Total Bilirubin AST ALT Alkaline Phosphatase LD Total Total Protein Albumin Vitamin B12 Serum Folate Stool Occult Blood Negative Blood Type O POSITIVE Antibody Screen Negative Crossmatch See Detail 11/25/17 11/25/17 11/25/17 06:39 06:45 06:45 WBC 5.8 RBC 2.55 L D Hgb 7.7 L D Hct 23.6 L D MCV 92.7 D MCH 30.2 MCHC 32.6 RDW 24.9 H D Plt Count 213 MPV 7.0 L D Neutrophils % 71.1 Lymphocytes % 17.9 D Monocytes % 9.0 Eosinophils % 1.4 D Basophils % 0.6 Retic Count PT with INR INR Sodium 144 Potassium 4.6 Chloride 116 H Carbon Dioxide 18 L Anion Gap 10 BUN 70 H Creatinine 9.2 H* Creat Clearance w eGFR POC Glucometer 89 Random Glucose 72 L D Calcium 8.4 L Ferritin Total Bilirubin AST ALT Alkaline Phosphatase LD Total Total Protein Albumin Vitamin B12 Serum Folate 14 Stool Occult Blood Blood Type Antibody Screen Crossmatch 11/25/17 11/25/17 11/25/17 06:45 11:49 13:22 WBC 6.0 RBC 2.56 L Hgb 7.6 L Hct 23.6 L MCV 92.1 MCH 29.7 MCHC 32.3 RDW 24.8 H Plt Count 202 MPV 6.9 L Neutrophils % Lymphocytes % Monocytes % Eosinophils % Basophils % Retic Count PT with INR INR Sodium Potassium Chloride Carbon Dioxide Anion Gap BUN Creatinine Creat Clearance w eGFR POC Glucometer 114 Random Glucose Calcium Ferritin Total Bilirubin AST ALT Alkaline Phosphatase LD Total Total Protein Albumin Vitamin B12 1159 H Serum Folate Stool Occult Blood Blood Type Antibody Screen Crossmatch Active Medications Generic Name Dose Route Start Last Admin Trade Name Freq PRN Reason Stop Dose Admin Abacavir Sulfate 600 mg 11/24/17 20:00 02/06/18 12:46 Ziagen - PO 600 mg DAILY JIMENEZ Administration Albuterol/Ipratropium 1 amp 11/25/17 12:01 Duoneb - NEB Q6H PRN SHORTNESS OF BREATH Amlodipine Besylate 10 mg 11/24/17 20:00 11/25/17 10:44 Norvasc - PO 10 mg DAILY JIMENEZ Administration Atenolol 25 mg 11/25/17 12:15 11/25/17 12:45 Tenormin - PO 25 mg DAILY JIMENEZ Administration Atorvastatin Calcium 10 mg 11/24/17 22:00 11/24/17 23:24 Lipitor - PO 10 mg HS JIMENEZ Administration Cholecalciferol 1,000 unit 11/24/17 20:00 11/25/17 10:44 Vitamin D3 - PO 1,000 unit DAILY JIMENEZ Administration Citalopram Hydrobromide 20 mg 11/24/17 20:15 11/25/17 10:44 Celexa - PO 20 mg DAILY JIMENEZ Administration Ferrous Gluconate 324 mg 11/25/17 08:00 11/25/17 10:44 Fergon - PO 324 mg BIDWM JIMENEZ Administration Insulin Aspart 1 vial 11/24/17 22:00 11/25/17 11:50 Novolog Vial Sliding Scale - SQ Not Given ACHS COUNT INCLUDES THE [facility] Protocol Lamivudine 100 mg 11/24/17 20:00 11/25/17 12:46 Epivir Oral Solution - PO 100 mg DAILY JIMENEZ Administration Non-Formulary Medication 100 ml 11/24/17 22:00 Sodium Fluoride/Potassium Nit [Prevident 5000 Enamel Protect] DT BID COUNT INCLUDES THE [facility] Tamsulosin HCl 0.4 mg 11/25/17 08:30 11/25/17 10:44 Flomax - PO 0.4 mg DAILY@0830 JIMENEZ Administration Zolpidem Tartrate 5 mg 11/24/17 22:00 Ambien - PO HS PRN INSOMNIA ASSESSMENT/PLAN: 67 y/o M with PMH HTN, HLD, NIDDM, CKD Stage 5 (not on dialysis), HIV (on Ziagen , Epivir, Tivicay), 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 #Symptomatic Anemia -s/p 2U PRBC 2/6 -HGb now 7.6 -2 more units planned for today. -Stool occult (-) -Maintain Hb>7 -Recent lab work showing iron def anemia and was started on iron supplemenation. -Dr. Joiner (PCP) agrees its likely due to medical dz, and not acute blood loss. -Monitor H&H #CKD Stage 5 -BUN/CR 70/9.2 -nephrology on board: Dr. Pereyra -Patient refused to start hemodialysis during this admission -Agrees for fistula placement -Vascular consulted, plan for vein mapping and fistula placement. #HTN-uncontrolled -Continue amlodipine 10mg PO qd #HLD -Continue Pravastatin 40mg PO qd #NIDDM -ISS ACHS -BGM #HIV -Continue Ziagen 300mg PO qd -Epivir 100mg PO qd -Tivicay 50mg PO qd -FU in [facility] #PPX -early ambulation #F/E/N -no fluids at this time -Monitor electrolytes -Sodium controlled and diabetic diet Visit type - Emergency Visit Emergency Visit: Yes ED Registration Date: 11/25/17 Care time: The patient presented to the Emergency Department on the above date and was hospitalized for further evaluation of their emergent condition. - New Patient This patient is new to me today: Yes Date on this admission: 11/25/17 - Critical Care Critical Care patient: No
[2017-11-25] MEDS ORDERED: INSULIN (NOVOLOG) ASPART 100 UNITS/ML 10ML VIAL ONE (20:27)
[2017-11-25] MEDS: ATORVASTATIN CA 10 MG TABLET (FP) PO SCH (21:23)
[2017-11-26] MEDS: INSULIN SLIDING SCALE (NOVOLOG) 1 VIAL SQ SCH ×3 (06:15→16:57)
[2017-11-26] MEDS ORDERED: PT OWN MED DRAWER 7, Y5N ONE ×2 (08:02→09:07)
[2017-11-26 08:18] LABS: ALBUMIN 2.5 g/dl (3.4-5.0); ANION GAP 11 (8-16); BILIRUBIN,TOTAL 0.6 mg/dL (0.2-1.0); BLOOD UREA NITROGEN 68 mg/dL (7-18); CALCIUM 8.6 mg/dL (8.5-10.1); CHLORIDE 115 mmol/L (98-107); CO2 18 mmol/L (21-32); GLUCOSE,RANDOM 88 mg/dL (74-106); MAGNESIUM 2.4 mg/dL (1.8-2.4); POTASSIUM 4.9 mmol/L (3.5-5.1); SGOT/AST 11 U/L (15-37); SGPT/ALT 18 U/L (12-78); SODIUM 144 mmol/L (136-145); TOT PROT 6.4 g/dl (6.4-8.2)
[2017-11-26 08:25] LABS: BASO % 0.6 % (0-2.0); EOS % 1.4 % (0-4.5); HEMATOCRIT 31.9 % (35.4-49); HEMOGLOBIN 10.5 GM/dL (11.7-16.9); LYMPH % 17.9 % (8-40); MCH 29.9 pg (25.7-33.7); MEAN CELL VOLUME 90.6 fl (80-96); MEAN PLT VOLUME 7.3 fl (7.5-11.1); MONO % 8.1 % (3.8-10.2); PLATELET COUNT 203 K/MM3 (134-434); RBC 3.52 M/mm3 (4.00-5.60); RDW 22.5 % (11.9-15.9)
[2017-11-26 08:27] LABS: ALK PHOS 103 U/L (45-117)
[2017-11-26] MEDS: ATENOLOL 25 MG TABLET (FP) PO SCH ×2 (08:34→09:13)
[2017-11-26] MEDS: CITALOPRAM HYDROBROMIDE 20 MG TABLET (FP) PO SCH ×2 (08:34→09:13)
[2017-11-26] MEDS: CHOLECALCIFEROL (VITAMIN D3) 1,000 UNIT TABLET (FP) PO SCH ×2 (08:34→09:13)
[2017-11-26] MEDS: TAMSULOSIN HCL 0.4 MG CAP.ER.24H (FP) PO SCH (08:34)
[2017-11-26] MEDS: amLODIPine BESYLATE 10 MG TABLET (FP) PO SCH ×2 (08:35→09:13)
[2017-11-26] MEDS: FERROUS GLUCONATE 324 MG TAB (FP) PO SCH ×2 (08:36→18:24)
[2017-11-26] MEDS: lamiVUDine 10 MG/1 ML BULK BOTTLE PO SCH (09:12)
[2017-11-26] MEDS: DOLUTEGRAVIR SODIUM 50 MG TABLET PO SCH (09:13)
[2017-11-26] MEDS: ABACAVIR SULFATE 300 MG TABLET PO SCH (09:13)
[2017-11-26] MEDS ORDERED: HEPARIN NA (PORCINE) 5,000 UNITS/ML 1ML VIAL ONE ×2 (09:37→11:15)
[2017-11-26] MEDS ORDERED: LIDOCAINE HCL 1%, 10 MG/ML (20ML VIAL) ONE (09:37)
[2017-11-26] MEDS ORDERED: PROPOFOL 20 ML ONE ×3 (10:01)
[2017-11-26] MEDS ORDERED: SUCCINYLCHOLINE CHLORIDE 200 MG/10 ML VIAL ONE (10:01)
[2017-11-26] MEDS ORDERED: MIDAZOLAM HCL 2 MG/2 ML SINGLE DOSE VIAL ONE ×2 (10:02)
[2017-11-26 10:13] LABS: SERUM IRON SATURATION 19 % (15-55); TOTAL IRON BINDING CAPACITY 241 ug/dL (250-450); UIBC 195 ug/dL (111-343)
[2017-11-26] MEDS ORDERED: ceFAZolin SODIUM 1 GM VIAL IVPB ONE (10:40)
[2017-11-26] MEDS ORDERED: ceFAZolin SODIUM 1 GM VIAL ONE (10:55)
[2017-11-26] MEDS ORDERED: ePHEDrine SULFATE 50 MG/1 ML AMPULE ONE (10:55)
[2017-11-26] MEDS ORDERED: ROCURONIUM BROMIDE 50 MG/5 ML VIAL ONE (11:02)
--- NOTE | 2017-11-26 11:30 | EKG ---
Test Reason : Blood Pressure : / mmHG Vent. Rate : 084 BPM Atrial Rate : 084 BPM P-R Int : 158 ms QRS Dur : 094 ms QT Int : 376 ms P-R-T Axes : 012 040 063 degrees QTc Int : 444 ms NORMAL SINUS RHYTHM MINIMAL VOLTAGE CRITERIA FOR LVH, MAY BE NORMAL VARIANT NONSPECIFIC T WAVE ABNORMALITY ABNORMAL ECG WHEN COMPARED WITH ECG OF 25-SEP-2017 13:48, NO SIGNIFICANT CHANGE WAS FOUND Confirmed by LINH VILLATORO MD ([id number]) on 11/26/2017 11:30:06 AM Referred By: Confirmed By:LINH VILLATORO MD
[2017-11-26] MEDS ORDERED: IRON SUCROSE INJECTION 100 MG in SODIUM CHLORIDE 95 ML IVPB ONE (12:15)
[2017-11-26] MEDS ORDERED: POVIDONE-IODINE OINTMENT 10% - 28.4 GM TUBE ONE (12:19)
[2017-11-26] MEDS ORDERED: NEOSTIGMINE METHYLSULFATE 0.5 MG/ML - 10 ML MDV ONE (12:20)
[2017-11-26] MEDS ORDERED: GLYCOPYRROLATE 0.2 MG/1 ML VIAL ONE (12:23)
--- NOTE | 2017-11-26 12:52 | PN ---
Teaching Attending Note Name of Resident: Michael Vogel ATTENDING PHYSICIAN STATEMENT I saw and evaluated the patient. I reviewed the resident's note and discussed the case with the resident. I agree with the resident's findings and plan as documented. SUBJECTIVE:asymptomatic. states he no longer feels dyspnic at rest or lethargic. 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 Symptomatic Anemia- total of 4 units PRBC this admission with good response. Iron deficiency noted on recent hospitalization. most likely from comorbidities can f/u with PMD for further workup 2. CKD stage V- NPO for AV graft placement today. 3. HTN- uncontrolled. will increase atenolol. on max doses of norvasc. 4. HIV- HARRT therapy. f/u in [facility] 5. Hyperphosphatemia- dietary restrictions 6. Dysgeusia- likely due to radiation therapy. ate breakfast without difficulty. continue nephro shakes. 7. Squamous cell ca of throat- outpatient follow up 8. DVT ppx- EAM. 9. can d/c home after procedure
--- NOTE | 2017-11-26 12:52 | OP ---
Operative Note - Note: Operative Date: 11/26/17 Pre-Operative Diagnosis: ESRD Operation: Insertion of left avg Post-Operative Diagnosis: Same as Pre-op Surgeon: Arnold Lan Anesthesia: General Estimated Blood Loss (mls): 50 Operative Report Dictated: Yes
[2017-11-26] MEDS ORDERED: ONDANSETRON 4 MG/2 ML VIAL IVPUSH PRN (13:03)
[2017-11-26] MEDS ORDERED: oxyCODONE HCL 5 MG TABLET PO PRN (13:03)
--- NOTE | 2017-11-26 13:19 | DS ---
Physical Exam: SUBJECTIVE: Patient seen and examined. S/p 4 Units PRBC in last 24 hours. Patient offers no new complaints. Says he feels better after transfusions. Denies fevers, nausea, vomiting, weakness, dizziness, and SOB. OBJECTIVE: Vital Signs Period Temp Pulse Resp BP Sys/Montes Pulse Ox Last 24 Hr 97.8 F-98.4 F 74-93 15-20 129-182/64-88 100-100 PHYSICAL EXAM GENERAL: The patient is awake, alert, and fully oriented, in no acute distress. HEAD: Normal with no signs of trauma. EYES: sclera anicteric, pale conjunctiva. ENT: oropharynx clear without exudates, moist mucous membranes. NECK: supple. LUNGS: Breath sounds equal, clear to auscultation bilaterally, no wheezes, no crackles, no accessory muscle use. HEART: Regular rate and rhythm, S1, S2 without murmur, rub or gallop. ABDOMEN: Soft, nontender, nondistended, normoactive bowel sounds, no guarding, no rebound, no hepatosplenomegaly, no masses. EXTREMITIES: 2+ pulses, warm, well-perfused, no edema. NEUROLOGICAL: Cranial nerves II through XII grossly intact. Normal speech, gait not observed. PSYCH: Normal mood, normal affect. SKIN: Warm, dry, normal turgor, no rashes or lesions noted LABS Laboratory Results - last 24 hr 11/24/17 11/24/17 11/25/17 15:20 15:20 06:45 WBC RBC Hgb Hct MCV MCH MCHC RDW Plt Count MPV Neutrophils % Lymphocytes % Monocytes % Eosinophils % Basophils % Sodium Potassium Chloride Carbon Dioxide Anion Gap BUN Creatinine Creat Clearance w eGFR POC Glucometer Random Glucose Calcium Phosphorus Magnesium Iron TIBC Iron Saturation Transferrin 223 Erythropoietin 14.7 Total Bilirubin AST ALT Alkaline Phosphatase Total Protein Albumin Blood Type O POSITIVE Antibody Screen Negative Crossmatch See Detail 11/25/17 11/25/17 11/25/17 06:45 13:22 21:20 WBC 6.0 RBC 2.56 L Hgb 7.6 L Hct 23.6 L MCV 92.1 MCH 29.7 MCHC 32.3 RDW 24.8 H Plt Count 202 MPV 6.9 L Neutrophils % Lymphocytes % Monocytes % Eosinophils % Basophils % Sodium Potassium Chloride Carbon Dioxide Anion Gap BUN Creatinine Creat Clearance w eGFR POC Glucometer 181 Random Glucose Calcium Phosphorus Magnesium Iron 46 TIBC 241 L Iron Saturation 19 Transferrin Erythropoietin Total Bilirubin AST ALT Alkaline Phosphatase Total Protein Albumin Blood Type Antibody Screen Crossmatch 11/26/17 11/26/17 11/26/17 06:00 06:00 06:14 WBC 7.0 RBC 3.52 L D Hgb 10.5 L D Hct 31.9 L D MCV 90.6 MCH 29.9 MCHC 33.0 RDW 22.5 H Plt Count 203 MPV 7.3 L Neutrophils % 72.0 Lymphocytes % 17.9 Monocytes % 8.1 Eosinophils % 1.4 Basophils % 0.6 Sodium 144 Potassium 4.9 Chloride 115 H Carbon Dioxide 18 L Anion Gap 11 BUN 68 H Creatinine 9.0 H* Creat Clearance w eGFR 6.02 POC Glucometer 103 Random Glucose 88 D Calcium 8.6 Phosphorus 5.0 H Magnesium 2.4 Iron TIBC Iron Saturation Transferrin Erythropoietin Total Bilirubin 0.6 D AST 11 L ALT 18 Alkaline Phosphatase 103 Total Protein 6.4 Albumin 2.5 L Blood Type Antibody Screen Crossmatch HOSPITAL COURSE: Date of Admission:11/25/17 Date of Discharge: 11/26/17 Discharge Summary Reason For Visit: ANEMIA Current Active Problems Anemia (Acute) Condition: Stable - Instructions - Home Medications Comprehensive Discharge Medication List: Ambulatory Orders RX: Cholecalciferol (Vitamin D3) [Vitamin D3] 1,000 unit PO DAILY #30 tablet RX: Pravastatin Sodium [Pravachol] 40 mg PO DAILY #30 tablet 04/30/16 RX: Amlodipine Besylate 10 mg PO DAILY #30 tablet 06/27/16 RX: Sodium Fluoride/Potassium Nit [Prevident 5000 Enamel Protect] 100 ml DT BID #1 paste..ml. 02/13/17 RX: Abacavir Sulfate [Ziagen -] 300 mg PO DAILY #60 tablet 03/07/17 RX: Lamivudine [Epivir Hbv] 100 mg PO DAILY #30 tablet 05/20/17 RX: Dolutegravir Sodium [Tivicay] 50 mg PO DAILY #30 tablet 09/03/17 RX: Ferrous Gluconate [Fergon -] 324 mg PO BID #60 tablet 09/26/17 RX: Citalopram Hydrobromide [Citalopram HBr] 20 mg PO DAILY #30 tablet 10/30/17 Glipizide 2 tab PO DAILY 11/03/17 Nifedipine 1 tab PO DAILY 11/03/17 Tamsulosin HCl 1 tab PO DAILY 11/03/17 Zolpidem Tartrate [Ambien] 5 mg PO HS #30 tablet MDD 1 11/06/17 RX: Finasteride 5 mg PO 11/25/17
[2017-11-26] MEDS ORDERED: ATENOLOL 25 MG TABLET (FP) PO ONE (13:30)
[2017-11-26] MEDS ORDERED: IRON SUCROSE INJECTION 100 MG in SODIUM CHLORIDE 100 ML IVPB ONE ×2 (14:00→16:00)
[2017-11-26] MEDS ORDERED: Darbepoetin Alfa in Polysorbat 40 MCG/0.4 DISP.SYRIN SQ ONE (16:09)
--- NOTE | 2017-11-26 16:10 | PN ---
Progress Note (short form) - Note Progress Note: Renal follow up for CKD stage 5 and Acute Anemia Pt seen and examined at the bedside s/p AVG placement feels very groggy no sob, chest pain, abd pain + pain at surgical site Vital Signs Temperature 97.5 F L 11/26/17 14:54 Pulse Rate 67 11/26/17 14:26 Respiratory Rate 16 11/26/17 14:26 Blood Pressure 118/61 11/26/17 14:26 O2 Sat by Pulse Oximetry (%) 96 11/26/17 14:26 Intake & Output 11/23/17 11/24/17 11/25/17 11/26/17 23:59 23:59 23:59 23:59 Intake Total 1200 1150 Output Total 400 1250 950 Balance -400 -50 200 Weight 80.768 kg NAD awake and alert RRR CTA soft NT NO LE edema CBC, BMP 11/26/17 06:00 11/26/17 06:00 Current Medications Abacavir Sulfate (Ziagen -) 600 mg PO DAILY [facility] Last Admin: 11/26/17 09:13 Dose: 600 mg Albuterol/Ipratropium (Duoneb -) 1 amp NEB Q6H PRN PRN Reason: SHORTNESS OF BREATH Last Admin: 11/25/17 18:00 Dose: 1 amp Amlodipine Besylate (Norvasc -) 10 mg PO DAILY [facility] Last Admin: 11/26/17 09:13 Dose: Not Given Atenolol (Tenormin -) 25 mg PO DAILY [facility] Last Admin: 11/26/17 09:13 Dose: Not Given Atorvastatin Calcium (Lipitor -) 10 mg PO HS [facility] Last Admin: 11/25/17 21:23 Dose: 10 mg Cholecalciferol (Vitamin D3 -) 1,000 unit PO DAILY [facility] Last Admin: 11/26/17 09:13 Dose: Not Given Citalopram Hydrobromide (Celexa -) 20 mg PO DAILY [facility] Last Admin: 11/26/17 09:13 Dose: Not Given Fentanyl (Sublimaze Injection -) 25 mcg IVPUSH [id number] PRN PRN Reason: PAIN-PACU ORDER X 4 DOSES ONLY Ferrous Gluconate (Fergon -) 324 mg PO BIDWM [facility] Last Admin: 11/26/17 08:36 Dose: 324 mg Iron Sucrose 100 mg/ Sodium (Chloride) 105 mls @ 210 mls/hr IVPB ONCE ONE Stop: 11/26/17 16:29 Insulin Aspart (Novolog Vial Sliding Scale -) 1 vial SQ ACHS JIMENEZ PRN Reason: Protocol Last Admin: 11/26/17 11:23 Dose: Not Given Lamivudine (Epivir Oral Solution -) 100 mg PO DAILY [facility] Last Admin: 11/26/17 09:12 Dose: 100 mg Non-Formulary Medication (Sodium Fluoride/Potassium Nit [Prevident 5000 Enamel Protect]) 100 ml DT BID [facility] Ondansetron HCl (Zofran Injection) 4 mg IVPUSH Q6H PRN PRN Reason: NAUSEA AND/OR VOMITING Oxycodone HCl (Roxicodone -) 5 mg PO Q4H PRN PRN Reason: Pain Level > 4 Stop: 11/27/17 13:02 Last Admin: 11/26/17 15:34 Dose: 5 mg Tamsulosin HCl (Flomax -) 0.4 mg PO DAILY@0830 [facility] Last Admin: 11/26/17 08:34 Dose: 0.4 mg Zolpidem Tartrate (Ambien -) 5 mg PO HS PRN PRN Reason: INSOMNIA 67 year old gentleman with PMhx of 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 #Acute on Chronic Anemia Hgb levels responded well to transfusion jose give Venofer 100mg IV x 1 and aransep SC x 1 today will continue DIONNA as outpatient #CKD stage 5 s/p AVG placement deferred starting dialysis as inpatient to follow up in our office next week #Hypertension Continue Amlodpine 10mg Add Atenolol 25mg Daily Goal BP < 140/90 #Renal Osteodystrophy Check Phos and trend Ca levels low phos diet Thank you Trey Pereyra DO
--- NOTE | 2017-11-26 16:57 | DS ---
Physical Exam: SUBJECTIVE: Patient seen and examined. S/p 4 Units PRBC in last 24 hours. Patient offers no new complaints. Says he feels better after transfusions. Denies fevers, nausea, vomiting, weakness, dizziness, and SOB. OBJECTIVE: Vital Signs Period Temp Pulse Resp BP Sys/Montes Pulse Ox Last 24 Hr 97.5 F-98.4 F 67-83 15-20 118-182/61-88 96-100 PHYSICAL EXAM GENERAL: The patient is awake, alert, and fully oriented, in no acute distress. HEAD: Normal with no signs of trauma. EYES: sclera anicteric, pale conjunctiva. ENT: oropharynx clear without exudates, moist mucous membranes. NECK: supple. LUNGS: Breath sounds equal, clear to auscultation bilaterally, no wheezes, no crackles, no accessory muscle use. HEART: Regular rate and rhythm, S1, S2 without murmur, rub or gallop. ABDOMEN: Soft, nontender, nondistended, normoactive bowel sounds, no guarding, no rebound, no hepatosplenomegaly, no masses. EXTREMITIES: 2+ pulses, warm, well-perfused, no edema. NEUROLOGICAL: Cranial nerves II through XII grossly intact. Normal speech, gait not observed. PSYCH: Normal mood, normal affect. SKIN: Warm, dry, normal turgor, no rashes or lesions noted LABS Laboratory Results - last 24 hr 11/24/17 11/24/17 11/25/17 15:20 15:20 06:45 WBC RBC Hgb Hct MCV MCH MCHC RDW Plt Count MPV Neutrophils % Lymphocytes % Monocytes % Eosinophils % Basophils % Sodium Potassium Chloride Carbon Dioxide Anion Gap BUN Creatinine Creat Clearance w eGFR POC Glucometer Random Glucose Calcium Phosphorus Magnesium Iron TIBC Iron Saturation Transferrin 223 Erythropoietin 14.7 Total Bilirubin AST ALT Alkaline Phosphatase Total Protein Albumin Blood Type O POSITIVE Antibody Screen Negative Crossmatch See Detail 11/25/17 11/25/17 11/26/17 06:45 21:20 06:00 WBC 7.0 RBC 3.52 L D Hgb 10.5 L D Hct 31.9 L D MCV 90.6 MCH 29.9 MCHC 33.0 RDW 22.5 H Plt Count 203 MPV 7.3 L Neutrophils % 72.0 Lymphocytes % 17.9 Monocytes % 8.1 Eosinophils % 1.4 Basophils % 0.6 Sodium Potassium Chloride Carbon Dioxide Anion Gap BUN Creatinine Creat Clearance w eGFR POC Glucometer 181 Random Glucose Calcium Phosphorus Magnesium Iron 46 TIBC 241 L Iron Saturation 19 Transferrin Erythropoietin Total Bilirubin AST ALT Alkaline Phosphatase Total Protein Albumin Blood Type Antibody Screen Crossmatch 11/26/17 11/26/17 06:00 06:14 WBC RBC Hgb Hct MCV MCH MCHC RDW Plt Count MPV Neutrophils % Lymphocytes % Monocytes % Eosinophils % Basophils % Sodium 144 Potassium 4.9 Chloride 115 H Carbon Dioxide 18 L Anion Gap 11 BUN 68 H Creatinine 9.0 H* Creat Clearance w eGFR 6.02 POC Glucometer 103 Random Glucose 88 D Calcium 8.6 Phosphorus 5.0 H Magnesium 2.4 Iron TIBC Iron Saturation Transferrin Erythropoietin Total Bilirubin 0.6 D AST 11 L ALT 18 Alkaline Phosphatase 103 Total Protein 6.4 Albumin 2.5 L Blood Type Antibody Screen Crossmatch HOSPITAL COURSE: Date of Admission:11/25/17 67 y/o M with PMH HTN, HLD, NIDDM, CKD (not on dialysis), HIV (on Ziagen, Epivir , Tivicay), hx past transfusion [facility] 09/25/17 (Hb 6.9; received 2 units PRBCs), who was sent to the ED for blood transfusion by Dr. Pereyra. For this reason, Dr. Pereyra suggested pt come to the ED for blood transfusion. Also pt endorsed worsening lightheadedness and SOB (more than baseline), constipation and increased urinary frequency. Patient was treated with 4 Units of PRBC. He responded to the transfusion appropriately. Patient also has Stage 5 CKD. Hemodialysis on admission was recommended but patient wanted to start outpatient. Graft was placed on patient and patient agreed to start outpatient HD. He is to follow up with Dr. Pereyra in 1 week. Patient clinically improved and was medically cleared for discharge. Patient will also follow up at the [facility] for his HIV. Date of Discharge: 11/26/17 Minutes to complete discharge: 35 Discharge Summary Reason For Visit: ANEMIA Current Active Problems Anemia (Acute) Hypertension (Acute) CKD (chronic kidney disease) requiring chronic dialysis (Chronic) HIV (human immunodeficiency virus infection) (Chronic) Laryngeal cancer (Chronic) Condition: Improved - Instructions Diet, Activity, Other Instructions: You were admitted because of Anemia. You were given 4 Units of blood during this admission. You also had a graft placed in your arm so that you can be started on hemodialysis in the near future. 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 A handout of what to avoid has been provided. You will also need to follow up with your primary care physician in 1 week. You should have your blood pressure checked and blood work repeated to look for anemia. Your home medications have changed. Please refer to medication list for these changes. If you feel your symptoms are worsening please call your doctor or go to the nearest emergency. Referrals: Jefry Joiner MD [Staff Physician] - Trey Pereyra MD [Staff Physician] - Disposition: HOME - Home Medications Comprehensive Discharge Medication List: Ambulatory Orders Cholecalciferol (Vitamin D3) [Vitamin D3] 1,000 unit PO DAILY #30 tablet Pravastatin Sodium [Pravachol] 40 mg PO DAILY #30 tablet 04/30/16 Amlodipine Besylate 10 mg PO DAILY #30 tablet 06/27/16 Sodium Fluoride/Potassium Nit [Prevident 5000 Enamel Protect] 100 ml DT BID #1 paste..ml. 02/13/17 Abacavir Sulfate [Ziagen -] 300 mg PO DAILY #60 tablet 03/07/17 Lamivudine [Epivir Hbv] 100 mg PO DAILY #30 tablet 05/20/17 Dolutegravir Sodium [Tivicay] 50 mg PO DAILY #30 tablet 09/03/17 Ferrous Gluconate [Fergon -] 324 mg PO BID #60 tablet 09/26/17 Citalopram Hydrobromide [Citalopram HBr] 20 mg PO DAILY #30 tablet 10/30/17 Glipizide 2 tab PO DAILY 11/03/17 Tamsulosin HCl 1 tab PO DAILY 11/03/17 Zolpidem Tartrate [Ambien] 5 mg PO HS #30 tablet MDD 1 11/06/17 Atenolol [Tenormin] 25 mg PO DAILY #30 tablet 11/26/17 This patient is new to me today: No Emergency Visit: Yes ED Registration Date: 11/25/17 Care time: The patient presented to the Emergency Department on the above date and was hospitalized for further evaluation of their emergent condition. Critical Care patient: No - Discharge Referral Referred to [facility] No
[2017-11-26 17:26] VITALS: BP 128/54; PULSE 68; TEMP 97.2
--- NOTE | 2017-11-27 06:45 | OP ---
DATE OF OPERATION: 11/26/2017 PREOPERATIVE DIAGNOSIS: End-stage renal disease. POSTOPERATIVE DIAGNOSIS: End-stage renal disease. PROCEDURE PERFORMED: Insertion of left arteriovenous graft. SURGEON: Arnold Rhodes DO ANESTHESIA: General. BLOOD LOSS: 50 mL. INDICATIONS: The patient is a 67-year-old male who is in the hospital due to fact that he is sick from acute renal failure and now needs permanent dialysis access. He had vein mapping performed preoperatively, showing that he does not have good veins in his left upper extremity. Due to the acuity of his dialysis, we decided to place a graft. DESCRIPTION OF PROCEDURE: The patient was consented for the procedure, understanding all the risks, benefits and alternatives, and taken to the operating room. Once in the operating room, the patient was laid on the operating table in the supine manner. The area of the left arm was prepped and draped in the sterile surgical manner. Under ultrasound guidance, we mapped out our brachial artery and our axillary vein, and those were marked using a skin marker. We then went ahead and waited the patient was under general anesthesia. We then went ahead and used a number 15 blade and made a 5-cm incision over the left axillary vein. Bovie electrocautery was used to control hemostasis. We got down to the level of the subcutaneous tissue, taking care not to injure any nerves. We got down to the brachial artery and the axillary artery. Then we found the axillary nerve and the vein. The axillary vein was then dissected anteriorly and posteriorly, and vessel loops were placed around it. We took care not to injure the artery or the nerve. At this point we went down to above the antecubital fossa. Went ahead and made a 5-cm incision over the brachial artery. Bovie electrocautery was used to control hemostasis. We got down through all the subcutaneous tissue and got down to the brachial sheath. The brachial sheath was then opened, and we dissected the artery and the vein. We dissected the artery anteriorly and posteriorly, and vessel loops were placed proximally and distally. We then took a tunneler and tunneled the tunneler from the arterial portion to the venous portion. We then attached a 4 to 7 Propaten AV graft to it and tunneled the graft across. IV heparin 5000 units was then administered to the patient. After 3 minutes, we got distal and proximal control on our artery. Using a 15 blade, we made an arteriotomy, which was extended to 7 mm using Dawson scissors. We beveled our graft to 7 mm as well. We then placed 6-0 Prolene stay sutures on the artery. We then used 6-0 Prolene double-armed and went outside-in on the graft and inside-out on the artery and ran the stitch around, forming an anastomosis between the artery and the graft. Once completed, we opened the distal artery first and then the proximal artery, and there was good flow in the AV graft. The graft was clamped, and we then flushed it with heparinized saline. We then cut the graft to size and beveled it to 1 cm. We then went ahead and got distal and proximal control on our vein. Using a 15 blade, we made a venotomy, which was extended to 1 mm using Dawson scissors. We then placed 6-0 Prolene stay sutures. We then used 6-0 Prolene double-armed and went outside-in on the graft and inside-out on the vein and ran the stitch around, forming an anastomosis between the vein and the graft. Once completed, we opened the distal vein first and then the proximal vein. We then unclamped our proximal AV graft, and there was a good thrill in our AV graft. We went ahead and irrigated both wounds copiously. Surgicel was placed. 3-0 Vicryl was used and the subcutaneous tissue was approximated in an interrupted manner for both wounds, and the skin was closed with skin julia for both wounds. The area was wet and dried. 4 x 4s and Tegaderm were placed. The patient tolerated the procedure with no complication. The patient was transferred to PACU in stable condition. ARNOLD RHODES DO [id number]
== END 2017-11-26 20:06 | disposition home or self-care (01) | DRG 673 ==
LOC: JER 14:21 → JERBED 18:47 → J7W 20:57 → OBSVTOIN 11-25 13:38
PROVIDERS: ADMIT Internal Medicine; ATTEND Internal Medicine
PROC: 30233N1 Transfusion of Nonautologous Red Blood Cells into Peripheral Vein, Percutaneous Approach (ICD-10-PCS; 2017-11-24)
PROC: 03180JD Bypass Left Brachial Artery to Upper Arm Vein with Synthetic Substitute, Open Approach (ICD-10-PCS; principal; 2017-11-26 11:00)
DX: I13.11 Hypertensive heart and chronic kidney disease without heart failure, with stage 5 chronic kidney disease, or end stage renal disease (principal); N18.6 End stage renal disease; E78.5 Hyperlipidemia, unspecified; J44.9 Chronic obstructive pulmonary disease, unspecified; E83.39 Other disorders of phosphorus metabolism; D63.1 Anemia in chronic kidney disease; E11.22 Type 2 diabetes mellitus with diabetic chronic kidney disease; Z21 Asymptomatic human immunodeficiency virus [HIV] infection status; Z85.21 Personal history of malignant neoplasm of larynx
CPT/HCPCS: 36415; 36430; 71045-TC-FY; 80048; 80053; 82272; 82607; 82668; 82728; 82746; 82962; 83540; 83550; 83615; 83735; 84100; 84466; 85025; 85027; 85044; 85610; 86850; 86900; 86901; 86922; 93005; 93010; 94640; 94760; 99284-25; G0378; J0881; J1644; J1756; P9038; P9058

== ENCOUNTER 2018-01-21 10:20 | Inpatient (IN) | payer OTHER ==
[2018-01-21 10:27] VITALS: BMI 22.4
--- NOTE | 2018-01-21 10:29 | PDOC ---
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 Patient reports Dr. Pereyra sent him in for possible transfusion. Patient reports he has received 3 transfusions since August 2017. Patient denies any headache, dizziness, lightheadedness, weakness, or changes in vision. Patient states he usually gets lightheaded/dizzy when he needs a transfusion, but not today. He denies any nausea, vomiting, diarrhea, or constipation. He denies any dysuria, hematuria, frequency, or urgency. He denies any fever, chills, cough, or headache. Patient endorses decreased appetite s/p radiation therapy in 2017 for throat CA. Patient states he is pending dialysis treatment for ESRD. He denies any recent travel or sick contacts. Allergies: NKDA Past Surgical History: Left arm fistula, bilateral inguinal hernia repair and undescended testis left Social History: Current everyday smoker. No ETOH or recreational drug use [facility] In Family Studies: Dr. Pereyra Vascular Surgeon: Dr. Lan PCP: Dr. Cortez <Cheri Alcazar - Last Filed: 01/21/18 14:19> - General Chief Complaint: Blood Transfusion Stated Complaint: BLOOD TRANSFUSION Time Seen by Provider: 01/21/18 10:29 Past History - Past Medical History Anemia: Yes Asthma: No Cancer: Yes (laryngeal / throat) Cardiac Disorders: No CVA: No COPD: No CHF: No DVT: No Dementia: No Diabetes: No Dialysis: No (esrd, lt arm fistula) GI Disorders: No Disorders: Yes HTN: Yes Hypercholesterolemia: Yes Liver Disease: No Seizures: No Thyroid Disease: Yes - Surgical History Abdominal Surgery: Yes (bilaterl inguinal hernia repair and undescend testis left) Appendectomy: No Cardiac Surgery: No Cholecystectomy: No Lung Surgery: No Neurologic Surgery: No Orthopedic Surgery: No - Reproductive History Testicular Surgery: No - Immunization History Immunization Up to Date: Yes - Suicide/Smoking/Psychosocial Hx Smoking History: Current every day smoker Have you smoked in the past 12 months: Yes Number of Cigarettes Smoked Daily: 10 Cigars Per Day: 0 Information on smoking cessation initiated: No 'Breaking Loose' booklet given: 01/09/18 Hx Alcohol Use: No Drug/Substance Use Hx: No Substance Use Type: None Hx Substance Use Treatment: Yes <Arely Agee - Last Filed: 01/21/18 13:11> <Cheri Alcazar - Last Filed: 01/21/18 14:19> - Past Medical History Allergies/Adverse Reactions: Allergies Allergy/AdvReac Type Severity Reaction Status Date / Time No Known Drug Allergies Allergy Verified 01/21/18 10:26 Home Medications: Ambulatory Orders Cholecalciferol (Vitamin D3) [Vitamin D3] 1,000 unit PO DAILY #30 tablet Pravastatin Sodium [Pravachol] 40 mg PO DAILY #30 tablet 04/30/16 Amlodipine Besylate 10 mg PO DAILY #30 tablet 06/27/16 Sodium Fluoride/Potassium Nit [Prevident 5000 Enamel Protect] 100 ml DT BID #1 paste..ml. 02/13/17 Abacavir Sulfate [Ziagen -] 300 mg PO DAILY #60 tablet 03/07/17 Dolutegravir Sodium [Tivicay] 50 mg PO DAILY #30 tablet 09/03/17 Ferrous Gluconate [Fergon -] 324 mg PO BID #60 tablet 09/26/17 Glipizide 2 tab PO DAILY 11/03/17 Tamsulosin HCl 1 tab PO DAILY 11/03/17 Atenolol [Tenormin] 25 mg PO DAILY #30 tablet 11/26/17 Lamivudine 50 mg PO DAILY #30 tablet 12/05/17 Citalopram Hydrobromide [Citalopram HBr] 20 mg PO DAILY #30 tablet 01/01/18 Zolpidem Tartrate [Ambien] 5 mg PO HS #30 tablet MDD 1 01/01/18 Pantoprazole Sodium [Protonix -] 40 mg PO DAILY tablet.ec 01/10/18 Sodium Bicarbonate - 650 mg PO TID #90 tablet 01/10/18 Review of Systems - Review of Systems Able to Perform ROS?: Yes Comments:: 01/21/18 11:10 GENERAL/CONSTITUTIONAL: No: fever, chills, weakness, loss of appetite. HEAD, EYES, EARS, NOSE AND THROAT: No: change in vision, ear pain, discharge, sore throat, throat swelling. CARDIOVASCULAR: No: chest pain, lightheadedness, palpitations, syncope RESPIRATORY: No: cough, shortness of breath, wheezing, hemoptysis, stridor. GASTROINTESTINAL: No: nausea, vomiting, abdominal cramping, diarrhea, rectal bleeding, constipation. GENITOURINARY: No: dysuria, hematuria, frequency, urgency, flank pain. MUSCULOSKELETAL: No: back pain, neck pain, joint pain, muscle swelling or pain SKIN AND BREASTS: No: lesions, pallor, rash or easy bruising. NEUROLOGIC: No: headache, vertigo, paresthesias, weakness ENDOCRINE: No: unexplained weight gain or loss HEMATOLOGIC/LYMPHATIC: Yes: anemia. No: easy bleeding, swelling nodes <Alcazar,Giomilsy - Last Filed: 01/21/18 14:19> *Physical Exam - Vital Signs Last Vital Signs Temp Pulse Resp BP Pulse Ox 98.1 F 98 H 20 160/90 99 01/21/18 10:23 01/21/18 10:23 01/21/18 10:23 01/21/18 10:23 01/21/18 10:23 <Arely Agee - Last Filed: 01/21/18 13:11> - Vital Signs Last Vital Signs Temp Pulse Resp BP Pulse Ox 98.1 F 98 H 20 160/90 99 01/21/18 10:23 01/21/18 10:23 01/21/18 10:23 01/21/18 10:23 01/21/18 10:23 - Physical Exam Comments: 01/21/18 11:10 GENERAL: The patient is in no acute distress. HEAD: Normal with no signs of trauma. EYES: PERRLA, EOMI, sclera anicteric, conjunctiva clear. ENT: Ears normal, nares patent, oropharynx clear without exudates. Moist mucous membranes. NECK: Normal range of motion, supple without lymphadenopathy, JVD, or masses. LUNGS: Breath sounds equal, clear to auscultation bilaterally. No wheezes, and no crackles. HEART: +Tachycardic. Regular rhythm, normal S1 and S2 without murmur, rub or gallop. ABDOMEN: Soft, nontender, normoactive bowel sounds. No guarding, no rebound. EXTREMITIES: Normal range of motion, no edema. No clubbing or cyanosis. No erythema, or tenderness. NEUROLOGICAL: Cranial nerves II through XII grossly intact. Normal speech. No focal neurological deficits. MUSCULOSKELETAL: Back non-tender to palpation, no CVA tenderness SKIN: Warm, Dry, normal turgor, no rashes or lesions noted. <Cheri Alcazar - Last Filed: 01/21/18 14:19> ED Treatment Course - LABORATORY CBC & Chemistry Diagram: 01/21/18 10:49 01/21/18 10:49 <Arely Agee - Last Filed: 01/21/18 13:11> - LABORATORY CBC & Chemistry Diagram: 01/21/18 10:49 01/21/18 10:49 - RADIOLOGY Radiograph Interpretation: 01/21/18 14:18 EXAM: CXR INTERPRETED BY: Dr. aBiley REVIEWED BY: Dr. Agee IMPRESSION: No acute pathology. No significant change since 01/09/18. <Cheri Alcazar - Last Filed: 01/21/18 14:19> Medical Decision Making - Medical Decision Making Mr. Galarza is a 67-year-old male with a history of hypertension, hyperlipidemia , end-stage renal disease (this he still makes urine) disease, has not initiated dialysis at this time, HIV on antiretrovirals. He presents emergency department in order to be admitted to initiate dialysis. The patient has no complaints of chest pain, shortness of breath, palpitations, focal weakness or numbness. He's had no fevers or chills. On examination: Tachycardiac No murmur Lungs are clear No abdominal tenderness No lower extremity edema 01/21/18 12:27 EKG: Sinus rhythm, rate of 84 bpm, axis is normal, intervals are normal, no ST elevations or depressions, T waves upright 01/21/18 13:[address] Pereyra who was seen this patient in the emergency department Plan Will be to initiate dialysis. First dialysis will be this evening. Second tomorrow. Anticipate discharge tomorrow. Case reviewed with hospitalist. Will admit to Dr. Vazquez Clinical impression: End-stage renal disease, requiring dialysis <Arely Agee - Last Filed: 01/21/18 13:11> - Medical Decision Making 01/21/18 11:50 First call placed to Dr. Pereyra at 11:51. Awaiting call back. Case discussed with Dr. Pereyra at 11:55. <Cheri Alcazar - Last Filed: 01/21/18 14:19> *DC/Admit/Observation/Transfer - Discharge Dispostion Admit: Yes <Arely Agee - Last Filed: 01/21/18 13:11> - Attestations Scribe Attestion: 01/21/18 11:10 Documentation prepared by Cheri Alcazar, acting as medical pathologist for Arely Agee MD. <Cheri Alcazar - Last Filed: 01/21/18 14:19> Diagnosis at time of Disposition: End stage renal disease - Discharge Dispostion Condition at time of disposition: Stable - Referrals Referrals: Samira Rolle MD [Primary Care Provider] -
[2018-01-21 11:28] LABS: BASO % 0.6 % (0-2.0); EOS % 1.3 % (0-4.5); HEMATOCRIT 23.8 % (35.4-49); HEMOGLOBIN 7.9 GM/dL (11.7-16.9); LYMPH % 20.4 % (8-40); MCH 31.3 pg (25.7-33.7); MCHC 33.3 g/dl (32.0-35.9); MEAN CELL VOLUME 94.1 fl (80-96); MEAN PLT VOLUME 7.8 fl (7.5-11.1); NEUT % 67.7 % (42.8-82.8); PLATELET COUNT 171 K/MM3 (134-434); RBC 2.53 M/mm3 (4.00-5.60); RDW 23.3 % (11.9-15.9); WHITE BLOOD COUNT 5.4 K/mm3 (4.0-10.0)
[2018-01-21 11:35] LABS: PROTHROMBIN TIME (PATIENT) 11.3 SEC (9.98-11.88)
[2018-01-21 11:55] LABS: ALBUMIN 2.6 g/dl (3.4-5.0); ANION GAP 9 (8-16); BILIRUBIN,TOTAL 0.1 mg/dL (0.2-1.0); BLOOD UREA NITROGEN 61 mg/dL (7-18); CALCIUM 8.1 mg/dL (8.5-10.1); CHLORIDE 114 mmol/L (98-107); CO2 18 mmol/L (21-32); GLUCOSE,RANDOM 92 mg/dL (74-106); POTASSIUM 4.5 mmol/L (3.5-5.1); SGOT/AST 13 U/L (15-37); SGPT/ALT 8 U/L (12-78); SODIUM 141 mmol/L (136-145); TOT PROT 6.3 g/dl (6.4-8.2)
[2018-01-21 12:00] LABS: ALK PHOS 93 U/L (45-117)
[2018-01-21] MEDS ORDERED: SODIUM CHLORIDE 250 ML IV PRN (12:27)
[2018-01-21] MEDS ORDERED: HEPARIN NA (PORCINE) 5,000 UNITS/ML 1ML VIAL IVPUSH ONE (12:27)
[2018-01-21] MEDS ORDERED: LIDOCAINE 2.5%/PRILOCAINE 2.5% (5 Gram/TUBE) TP ONE (12:29)
--- NOTE | 2018-01-21 13:18 | EKG ---
Test Reason : Blood Pressure : / mmHG Vent. Rate : 084 BPM Atrial Rate : 084 BPM P-R Int : 142 ms QRS Dur : 092 ms QT Int : 378 ms P-R-T Axes : 042 046 061 degrees QTc Int : 446 ms NORMAL SINUS RHYTHM WITH SINUS ARRHYTHMIA MINIMAL VOLTAGE CRITERIA FOR LVH, MAY BE NORMAL VARIANT NONSPECIFIC T WAVE ABNORMALITY ABNORMAL ECG WHEN COMPARED WITH ECG OF 09-JAN-2018 17:48, NO SIGNIFICANT CHANGE WAS FOUND Confirmed by LINH VILLATORO MD ([id number]) on 01/21/2018 1:18:37 PM Referred By: Confirmed By:LINH VILLATORO MD
--- NOTE | 2018-01-21 14:55 | HP ---
CHIEF COMPLAINT: new HD PCP: Dr. Todd HISTORY OF PRESENT ILLNESS: This is a 67 year old male with PMHx of anemia, laryngeal/throat cancer (s/p radiation 03/2017), ESRD, HIV (on HAART), HTN, hyperlipidemia who presented to the ED by his applier to start HD. The patient reports that he was told he is anemic. He denies any headache, dizziness, lightheadedness, syncope, chest pain, palpitations. ER course was notable for: (1) Temp 98.1, BP 160/90, resp 20, O2 99% on RA (2) Hgb 7.9, Hct 23.8 (3) BUN 61, Cr 11 Recent Travel: denies PAST MEDICAL HISTORY: as above PAST SURGICAL HISTORY: as above Social History: Smoking: Smokes daily Alcohol: denies Drugs: denies Family History: Allergies No Known Drug Allergies Allergy (Verified 01/21/18 10:26) HOME MEDICATIONS: Home Medications Medication Instructions Recorded Cholecalciferol (Vitamin D3) 1,000 unit PO DAILY #30 tablet 04/05/16 [Vitamin D3] Pravastatin Sodium [Pravachol] 40 mg PO DAILY #30 tablet 04/30/16 Amlodipine Besylate 10 mg PO DAILY #30 tablet 06/27/16 Sodium Fluoride/Potassium Nit 100 ml DT BID #1 paste..ml. 02/13/17 [Prevident 5000 Enamel Protect] Abacavir Sulfate [Ziagen -] 300 mg PO DAILY #60 tablet 03/07/17 Dolutegravir Sodium [Tivicay] 50 mg PO DAILY #30 tablet 09/03/17 Ferrous Gluconate [Fergon -] 324 mg PO BID #60 tablet 09/26/17 Glipizide 2 tab PO DAILY 11/03/17 Tamsulosin HCl 1 tab PO DAILY 11/03/17 Atenolol [Tenormin] 25 mg PO DAILY #30 tablet 11/26/17 Lamivudine 50 mg PO DAILY #30 tablet 12/05/17 Citalopram Hydrobromide 20 mg PO DAILY #30 tablet 01/01/18 [Citalopram HBr] Zolpidem Tartrate [Ambien] 5 mg PO HS #30 tablet MDD 1 01/01/18 Pantoprazole Sodium [Protonix -] 40 mg PO DAILY tablet.ec 01/10/18 Sodium Bicarbonate - 650 mg PO TID #90 tablet 01/10/18 REVIEW OF SYSTEMS CONSTITUTIONAL: Absent: fever, chills, diaphoresis, generalized weakness, malaise, loss of appetite, weight change HEENT: Absent: rhinorrhea, nasal congestion, throat pain, throat swelling, difficulty swallowing, mouth swelling, ear pain, eye pain, visual changes CARDIOVASCULAR: Absent: chest pain, syncope, palpitations, irregular heart rate, lightheadedness , peripheral edema RESPIRATORY: Absent: cough, shortness of breath, dyspnea with exertion, orthopnea, wheezing, stridor, hemoptysis GASTROINTESTINAL: Absent: abdominal pain, abdominal distension, nausea, vomiting, diarrhea, constipation, melena, hematochezia GENITOURINARY: Told by applier to come to the hospital to start HD Absent: dysuria, frequency, urgency, hesitancy, hematuria, flank pain, genital pain MUSCULOSKELETAL: Absent: myalgia, arthralgia, joint swelling, back pain, neck pain SKIN: Absent: rash, itching, pallor HEMATOLOGIC/IMMUNOLOGIC: Anemia Absent: easy bleeding, easy bruising, lymphadenopathy, frequent infections ENDOCRINE: Absent: unexplained weight gain, unexplained weight loss, heat intolerance, cold intolerance NEUROLOGIC: Absent: headache, focal weakness or paresthesias, dizziness, unsteady gait, seizure, mental status changes, bladder or bowel incontinence PSYCHIATRIC: Absent: anxiety, depression, suicidal or homicidal ideation, hallucinations. PHYSICAL EXAMINATION Vital Signs - 24 hr 01/21/18 01/21/18 10:23 14:44 Temperature 98.1 F 97.9 F Pulse Rate 98 H Pulse Rate [ 90 Left Radial] Respiratory 20 22 Rate Blood Pressure 160/90 Blood Pressure 176/92 [Right Arm] O2 Sat by Pulse 99 96 Oximetry (%) GENERAL: Awake, alert, and fully oriented, in no acute distress. HEAD: Normal with no signs of trauma. EYES: Pupils equal, round and reactive to light, extraocular movements intact, sclera anicteric, conjunctiva clear. No lid lag. EARS, NOSE, THROAT: Ears normal, nares patent, oropharynx clear without exudates. Moist mucous membranes. NECK: Normal range of motion, supple without lymphadenopathy, JVD, or masses. LUNGS: Breath sounds equal, clear to auscultation bilaterally. No wheezes, and no crackles. No accessory muscle use. HEART: Regular rate and rhythm, normal S1 and S2 without murmur, rub or gallop. ABDOMEN: Soft, nontender, not distended, normoactive bowel sounds, no guarding, no rebound, no masses. No hepatomegaly or splenomegaly. MUSCULOSKELETAL: Normal range of motion at all joints. No bony deformities or tenderness. No CVA tenderness. UPPER EXTREMITIES: LUE AVF, +bruit. 2+ pulses, warm, well-perfused. No cyanosis. No clubbing. No peripheral edema. LOWER EXTREMITIES: 2+ pulses, warm, well-perfused. No calf tenderness. No peripheral edema. NEUROLOGICAL: Cranial nerves II-XII intact. Normal speech. Normal gait. PSYCHIATRIC: Cooperative. Good eye contact. Appropriate mood and affect. SKIN: Warm, dry, normal turgor, no rashes or lesions noted, normal capillary refill. Laboratory Results - last 24 hr 01/21/18 01/21/18 01/21/18 10:49 10:49 10:49 WBC 5.4 RBC 2.53 L Hgb 7.9 L Hct 23.8 L MCV 94.1 MCH 31.3 MCHC 33.3 RDW 23.3 H Plt Count 171 MPV 7.8 Neutrophils % 67.7 Lymphocytes % 20.4 D Monocytes % 10.0 Eosinophils % 1.3 D Basophils % 0.6 PT with INR 11.30 INR 1.00 Sodium 141 Potassium 4.5 Chloride 114 H Carbon Dioxide 18 L Anion Gap 9 BUN 61 H Creatinine 11.0 H* Creat Clearance w eGFR 4.71 Random Glucose 92 Calcium 8.1 L Total Bilirubin 0.1 L D AST 13 L D ALT 8 L D Alkaline Phosphatase 93 Total Protein 6.3 L Albumin 2.6 L Blood Type Antibody Screen 01/21/18 10:49 WBC RBC Hgb Hct MCV MCH MCHC RDW Plt Count MPV Neutrophils % Lymphocytes % Monocytes % Eosinophils % Basophils % PT with INR INR Sodium Potassium Chloride Carbon Dioxide Anion Gap BUN Creatinine Creat Clearance w eGFR Random Glucose Calcium Total Bilirubin AST ALT Alkaline Phosphatase Total Protein Albumin Blood Type O POSITIVE Antibody Screen Negative Assessment: This is a 67 year old male with PMHx of anemia, laryngeal/throat cancer (s/p radiation 03/2017), ESRD, HIV (on HAART), HTN, DM, hyperlipidemia who presented to the ED by his applier to start HD. Plan: 1) ESRD - To start HD during admission - Monitor electrolytes - F/u nephrology consult 2) Anemia of chronic disease - Blood transfusion per nephrology during HD session - Continue Ferrous sulfate 3) DM - BGM ACHS - ISS ACHS 4) HTN - Continue Norvasc - Continue Atenolol 5) HIV - Continue HAART 6) Hyperlipidemia - Continue Prevastatin 7) F/E/N: - Renal, diabetic, sodium controlled diet - Monitor electrolytes 8) Prophylaxis: - OOB ambulating - Heparin 5,000u sq q8h 9) Dispo: - Requires continued inpatient care CODE STATUS: FULL CODE Visit type - Emergency Visit Emergency Visit: Yes ED Registration Date: 01/21/18 Care time: The patient presented to the Emergency Department on the above date and was hospitalized for further evaluation of their emergent condition. - New Patient This patient is new to me today: Yes Date on this admission: 01/21/18 - Critical Care Critical Care patient: No Hospitalist Screening - Colonoscopy Questionnaire Colonoscopy Questionnaire: Colonoscopy Questionnaire - Patient: 50 - 75 years old and never had a screening colonoscopy: No History of colon or rectal polyps, or CA: No History of IBD, Crohn's disease or UC: No History of abdominal radiation therapy as a child: No - Relative: 1 with colon or rectal CA, or polyps at age 60 or younger: Unknown Colon or rectal CA diagnosed at age 45 or younger: Unknown Multiple relatives with colon or rectal CA: Unknown - Outcome: Screening Result: Negative Screen
[2018-01-21] MEDS ORDERED: ZOLPIDEM TARTRATE 5 MG TABLET PO PRN (16:23)
--- NOTE | 2018-01-21 17:34 | CONSULT ---
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 Mr. Galarza has needed several transfusions in the last few months b/c of CKD related Anemia. He also has uremic symptoms (fatigue, loss of apetite). No SOB, chest pain, N/V/D. No fever, chills. PMhx: as above Family Hx : NC Social Hx: No T/A/D ROS: as per HPI Home Medications Medication Instructions Recorded Cholecalciferol (Vitamin D3) 1,000 unit PO DAILY #30 tablet 04/05/16 [Vitamin D3] Pravastatin Sodium [Pravachol] 40 mg PO DAILY #30 tablet 04/30/16 Amlodipine Besylate 10 mg PO DAILY #30 tablet 06/27/16 Sodium Fluoride/Potassium Nit 100 ml DT BID #1 paste..ml. 02/13/17 [Prevident 5000 Enamel Protect] Abacavir Sulfate [Ziagen -] 300 mg PO DAILY #60 tablet 03/07/17 Dolutegravir Sodium [Tivicay] 50 mg PO DAILY #30 tablet 09/03/17 Ferrous Gluconate [Fergon -] 324 mg PO BID #60 tablet 09/26/17 Glipizide 2 tab PO DAILY 11/03/17 Tamsulosin HCl 1 tab PO DAILY 11/03/17 Atenolol [Tenormin] 25 mg PO DAILY #30 tablet 11/26/17 Lamivudine 50 mg PO DAILY #30 tablet 12/05/17 Citalopram Hydrobromide 20 mg PO DAILY #30 tablet 01/01/18 [Citalopram HBr] Zolpidem Tartrate [Ambien] 5 mg PO HS #30 tablet MDD 1 01/01/18 Pantoprazole Sodium [Protonix -] 40 mg PO DAILY tablet.ec 01/10/18 Sodium Bicarbonate - 650 mg PO TID #90 tablet 01/10/18 Vital Signs Temperature 97.9 F 01/21/18 14:44 Pulse Rate 90 01/21/18 14:44 Respiratory Rate 22 01/21/18 14:44 Blood Pressure 176/92 01/21/18 14:44 O2 Sat by Pulse Oximetry (%) 96 01/21/18 14:44 Intake & Output 01/18/18 01/19/18 01/20/18 01/21/18 23:59 23:59 23:59 23:59 Weight 77.111 kg NAD awake and alert MMM, no JVD, Neck supple soft NT/ND No LE edema left arm AVG in place with + thrill CBC, BMP 01/21/18 10:49 01/21/18 10:49 Current Medications Abacavir Sulfate (Ziagen -) 300 mg PO DAILY JIMENEZ Amlodipine Besylate (Norvasc -) 10 mg PO DAILY JIMENEZ Atenolol (Tenormin -) 25 mg PO DAILY JIMENEZ Atorvastatin Calcium (Lipitor -) 10 mg PO DAILY JIMENEZ Cholecalciferol (Vitamin D3 -) 1,000 unit PO DAILY JIMENEZ Citalopram Hydrobromide (Celexa -) 20 mg PO DAILY JIMENEZ Ferrous Gluconate (Fergon -) 324 mg PO BID JIMENEZ Heparin Sodium (Porcine) (Heparin -) 5,000 unit SQ TID JIMENEZ Sodium Chloride (Normal Saline -) 250 mls @ 3,000 mls/hr IV PRN PRN PRN Reason: Hypotension during Dialysis Stop: 01/22/18 12:27 Insulin Aspart (Novolog Vial Sliding Scale -) 1 vial SQ ACHS JIMENEZ PRN Reason: Protocol Lamivudine (Epivir -) 50 mg PO DAILY JIMENEZ Non-Formulary Medication (Dolutegravir Sodium) 50 mg PO DAILY JIMENEZ Pantoprazole Sodium (Protonix -) 40 mg PO DAILY JIMENEZ Zolpidem Tartrate (Ambien -) 5 mg PO HS PRN PRN Reason: INSOMNIA 67 year old gentleman with PMhx of 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 #CKD Stage 5, now ESRD #CKD Related Anemia #Hypertension #HIV #Metabolic acidosis For initial dialysis today as a inpatient total treatment time is 2 hours with 0 UF will need outpatient HD placement ([facility] [employer] has started to work on his insurance) Continue Atenolol, Amlodipine would benefit from ELIAS/ARB once stable on dialysis continue anti-viral trype and screen, may need PRBC transfusion if Hgb < 8 Thank you Will follow Trey Pereyra DO
[2018-01-21] MEDS ORDERED: amLODIPine BESYLATE 10 MG TABLET (FP) PO ONE (20:23)
[2018-01-21] MEDS ORDERED: ATENOLOL 25 MG TABLET (FP) PO ONE (20:24)
[2018-01-21] MEDS ORDERED: INSULIN (NOVOLOG) ASPART 100 UNITS/ML 10ML VIAL ONE (20:51)
[2018-01-21] MEDS: HEPARIN NA (PORCINE) 5,000 UNITS/ML 1ML VIAL SQ SCH (20:59)
[2018-01-21] MEDS: FERROUS GLUCONATE 324 MG TAB (FP) PO SCH (20:59)
[2018-01-21] MEDS: INSULIN SLIDING SCALE (NOVOLOG) 1 VIAL SQ SCH (21:03)
[2018-01-22] MEDS: HEPARIN NA (PORCINE) 5,000 UNITS/ML 1ML VIAL SQ SCH (05:55)
[2018-01-22] MEDS: INSULIN SLIDING SCALE (NOVOLOG) 1 VIAL SQ SCH (06:10)
[2018-01-22 07:05] LABS: HEMATOCRIT 24.3 % (35.4-49); MCH 30.9 pg (25.7-33.7); MEAN CELL VOLUME 93.5 fl (80-96); MEAN PLT VOLUME 7.7 fl (7.5-11.1); PLATELET COUNT 161 K/MM3 (134-434); RDW 22.7 % (11.9-15.9); WHITE BLOOD COUNT 4.8 K/mm3 (4.0-10.0)
[2018-01-22 07:49] LABS: ALBUMIN 2.4 g/dl (3.4-5.0); ANION GAP 11 (8-16); BLOOD UREA NITROGEN 44 mg/dL (7-18); CALCIUM 8.2 mg/dL (8.5-10.1); CHLORIDE 109 mmol/L (98-107); CO2 23 mmol/L (21-32); GLUCOSE,RANDOM 75 mg/dL (74-106); POTASSIUM 4.4 mmol/L (3.5-5.1); SODIUM 143 mmol/L (136-145)
[2018-01-22 08:00] LABS: ALK PHOS 81 U/L (45-117); BILIRUBIN,TOTAL 0.3 mg/dL (0.2-1.0); PHOSPHOROUS 5.1 mg/dL (2.5-4.9); SGOT/AST 15 U/L (15-37); SGPT/ALT 6 U/L (12-78)
[2018-01-22] MEDS ORDERED: EPOETIN ALFA 20,000 UNIT/1 ML VIAL IVPUSH ONE (08:00)
[2018-01-22] MEDS ORDERED: SODIUM CHLORIDE 250 ML IV PRN (08:00)
[2018-01-22 08:26] LABS: CREATININE 8.6 mg/dL (0.7-1.3)
[2018-01-22] MEDS ORDERED: PT OWN MED DRAWER 7, Y5N ONE (08:52)
[2018-01-22 08:57] VITALS: BP 163/88; PULSE 81; TEMP 98.4
[2018-01-22] MEDS: FERROUS GLUCONATE 324 MG TAB (FP) PO SCH (08:59)
[2018-01-22] MEDS ORDERED: amLODIPine BESYLATE 10 MG TABLET (FP) PO SCH (10:00)
[2018-01-22] MEDS ORDERED: CITALOPRAM HYDROBROMIDE 20 MG TABLET (FP) PO SCH (10:00)
[2018-01-22] MEDS ORDERED: lamiVUDine 10 MG/1 ML BULK BOTTLE PO SCH (10:00)
[2018-01-22] MEDS ORDERED: ATENOLOL 25 MG TABLET (FP) PO SCH (10:00)
[2018-01-22] MEDS ORDERED: CHOLECALCIFEROL (VITAMIN D3) 1,000 UNIT TABLET (FP) PO SCH (10:00)
[2018-01-22] MEDS ORDERED: ABACAVIR SULFATE 300 MG TABLET PO SCH (10:00)
[2018-01-22] MEDS ORDERED: ATORVASTATIN CA 10 MG TABLET (FP) PO SCH (10:00)
[2018-01-22] MEDS ORDERED: DOLUTEGRAVIR SODIUM 50 MG TABLET PO SCH (10:00)
[2018-01-22] MEDS ORDERED: PANTOPRAZOLE 40 MG TABLET (FP) PO SCH (10:00)
--- NOTE | 2018-01-22 10:14 | DS ---
Physical Examination Vital Signs: Vital Signs Temperature 98.4 F 01/22/18 08:56 Pulse Rate 81 01/22/18 08:56 Respiratory Rate 18 01/22/18 08:56 Blood Pressure 163/88 01/22/18 08:56 O2 Sat by Pulse Oximetry (%) 96 01/21/18 21:00 Labs: CBC, BMP 01/22/18 06:35 01/22/18 06:35 Discharge Summary Reason For Visit: END STAGE RENAL FAILURE Hospital Course: The patient left AMA Condition: Stable - Instructions Referrals: Samira Rolle MD [Primary Care Provider] - Disposition: AGAINST MEDICAL ADVICE - Home Medications Comprehensive Discharge Medication List: Ambulatory Orders Cholecalciferol (Vitamin D3) [Vitamin D3] 1,000 unit PO DAILY #30 tablet Pravastatin Sodium [Pravachol] 40 mg PO DAILY #30 tablet 04/30/16 Amlodipine Besylate 10 mg PO DAILY #30 tablet 06/27/16 Sodium Fluoride/Potassium Nit [Prevident 5000 Enamel Protect] 100 ml DT BID #1 paste..ml. 02/13/17 Abacavir Sulfate [Ziagen -] 300 mg PO DAILY #60 tablet 03/07/17 Dolutegravir Sodium [Tivicay] 50 mg PO DAILY #30 tablet 09/03/17 Ferrous Gluconate [Fergon -] 324 mg PO BID #60 tablet 09/26/17 Glipizide 2 tab PO DAILY 11/03/17 Tamsulosin HCl 1 tab PO DAILY 11/03/17 Atenolol [Tenormin] 25 mg PO DAILY #30 tablet 11/26/17 Lamivudine 50 mg PO DAILY #30 tablet 12/05/17 Citalopram Hydrobromide [Citalopram HBr] 20 mg PO DAILY #30 tablet 01/01/18 Zolpidem Tartrate [Ambien] 5 mg PO HS #30 tablet MDD 1 01/01/18 Pantoprazole Sodium [Protonix -] 40 mg PO DAILY tablet.ec 01/10/18 Sodium Bicarbonate - 650 mg PO TID #90 tablet 01/10/18
[2018-01-23 08:18] LABS: HBsAG SCREEN Negative (Negative)
== END 2018-01-22 09:58 | disposition left against medical advice (07) | DRG 682 ==
LOC: JER 10:20 → JERBED 13:24 → J6S 20:05
PROVIDERS: ADMIT Internal Medicine; ATTEND Registered Nurse
PROC: 5A1D70Z Performance of Urinary Filtration, Intermittent, Less than 6 Hours Per Day (ICD-10-PCS; principal; 2018-01-21)
DX: I12.0 Hypertensive chronic kidney disease with stage 5 chronic kidney disease or end stage renal disease (principal); N18.6 End stage renal disease; E87.2 Acidosis; E11.22 Type 2 diabetes mellitus with diabetic chronic kidney disease; D63.8 Anemia in other chronic diseases classified elsewhere; E78.5 Hyperlipidemia, unspecified; Z21 Asymptomatic human immunodeficiency virus [HIV] infection status; E11.21 Type 2 diabetes mellitus with diabetic nephropathy; Z85.21 Personal history of malignant neoplasm of larynx
CPT/HCPCS: 36415; 71045-TC-FY; 80053; 82962; 83735; 84100; 85025; 85027; 85610; 86850; 86900; 86901; 86922; 87340; 93005; 93010; 99285-25; J1644

== ENCOUNTER 2018-02-04 10:55 | Inpatient (IN) | payer OTHER ==
[2018-02-04 11:23] VITALS: BMI 23.7
--- NOTE | 2018-02-04 11:25 | PDOC ---
History of Present Illness <Romero Montaño - Last Filed: 02/04/18 14:27> - General History Source: Patient Exam Limitations: No Limitations - History of Present Illness Initial Comments: 02/04/18 11:57 The patient is a 67 year old male with history of hypertension, hyperlipidemia, DM, ESRD currently preparing to start HD, HIV on HAART, cigarette smoking, laryngeal CA, anemia, brought in by EMS for chronic shortness of breath, noticeably worse today. The patient reports he was cleaning around his house when his SOB became worse. States he used nebulizers without apparent improvement in his symptoms and subsequently activated EMS. No chest pain or palpitations. No nausea, vomiting, or diarrhea. No headache or blurred vision. No F/C, coughing. He states he has a new LUE fistula by Dr. Lan in preparation for HD. He was supposed to be evaluated by Dr. Lan but missed his appointment yesterday. States he was unable to take his morning medications today. PCP: Dr. Cortez Senior Research Engineer: Dr. Pereyra Vascular Surgeon: Dr. Lan senior architect/design manager at [facility]: Saima Flores <Aisha Georges - Last Filed: 02/04/18 17:15> - General Chief Complaint: Respiratory Stated Complaint: DIFFICULTY BREATHING Time Seen by Provider: 02/04/18 11:02 Past History - Past Medical History Anemia: Yes (IRON DEFICIENCY.) Asthma: Yes Cancer: Yes (laryngeal / throat) Cardiac Disorders: Yes (ANGINA.) CVA: No COPD: No CHF: No DVT: No Dementia: No Diabetes: Yes Dialysis: (esrd, lt arm fistula) GI Disorders: No Disorders: Yes HTN: Yes Hypercholesterolemia: Yes Liver Disease: No Psychiatric Problems: Yes (DEPRESSION.) Seizures: No Thyroid Disease: Yes - Surgical History Abdominal Surgery: Yes (bilaterl inguinal hernia repair and undescend testis left) Appendectomy: No Cardiac Surgery: No Cholecystectomy: No Lung Surgery: No Neurologic Surgery: No Orthopedic Surgery: No - Reproductive History Testicular Surgery: No - Immunization History Immunization Up to Date: Yes - Suicide/Smoking/Psychosocial Hx Smoking History: Current every day smoker Have you smoked in the past 12 months: Yes Number of Cigarettes Smoked Daily: 10 Cigars Per Day: 0 Information on smoking cessation initiated: No 'Breaking Loose' booklet given: 01/09/18 Hx Alcohol Use: No Drug/Substance Use Hx: No Substance Use Type: None Hx Substance Use Treatment: Yes <DanyelRomero - Last Filed: 02/04/18 14:27> <Aisha Georges - Last Filed: 02/04/18 17:15> - Past Medical History Allergies/Adverse Reactions: Allergies Allergy/AdvReac Type Severity Reaction Status Date / Time No Known Drug Allergies Allergy Verified 02/04/18 11:04 Home Medications: Ambulatory Orders Abacavir Sulfate [Abacavir] 300 mg PO DAILY 02/04/18 Amlodipine Besylate 10 mg PO DAILY 02/04/18 Atenolol [Tenormin -] 25 mg PO DAILY 02/04/18 Cholecalciferol (Vitamin D3) [Vitamin D3] 1,000 unit PO DAILY 02/04/18 Citalopram Hydrobromide [Citalopram HBr] 20 mg PO DAILY 02/04/18 Dolutegravir Sodium [Tivicay] 50 mg PO DAILY 02/04/18 Ferrous Sulfate 325 mg PO BID 02/04/18 Glipizide [Glipizide ER] 0 mg PO BID 02/04/18 Lamivudine [Epivir Hbv] 100 mg PO DAILY 02/04/18 Pravastatin Sodium [Pravachol] 40 mg PO DAILY 02/04/18 Sodium Fluoride/Potassium Nit [Prevident 5000 Enamel Protect] 100 ml DT BID Tamsulosin HCl [Flomax] 0.4 mg PO DAILY 02/04/18 Zolpidem Tartrate [Ambien] 5 mg PO HS MDD mmd1 02/04/18 Review of Systems - Review of Systems Able to Perform ROS?: Yes Comments:: 02/04/18 11:57 GENERAL/CONSTITUTIONAL: No fever. No weakness. HEAD, EYES, EARS, NOSE AND THROAT: No change in vision. No ear pain or discharge. No sore throat. GASTROINTESTINAL: No nausea, vomiting, diarrhea or constipation. GENITOURINARY: No dysuria, frequency, or change in urination. CARDIOVASCULAR: +Shortness of breath. RESPIRATORY: No cough, wheezing, or hemoptysis. MUSCULOSKELETAL: No joint or muscle swelling or pain. No neck or back pain. SKIN: No rash NEUROLOGIC: No headache, vertigo, loss of consciousness, or change in strength/ sensation. ENDOCRINE: No increased thirst. No abnormal weight change. HEMATOLOGIC/LYMPHATIC: No anemia, easy bleeding, or history of blood clots. ALLERGIC/IMMUNOLOGIC: No hives or skin allergy. <Aisha Georges - Last Filed: 02/04/18 17:15> *Physical Exam - Vital Signs Last Vital Signs Temp Pulse Resp BP Pulse Ox 97.6 F 94 H 22 175/110 98 02/04/18 11:06 02/04/18 11:06 02/04/18 11:06 02/04/18 11:06 02/04/18 11:06 <Romero Montaño - Last Filed: 02/04/18 14:27> - Vital Signs Last Vital Signs Temp Pulse Resp BP Pulse Ox 97.6 F 90 22 175/110 98 02/04/18 11:06 02/04/18 11:20 02/04/18 11:06 02/04/18 11:06 02/04/18 11:20 - Physical Exam Comments: 02/04/18 11:57 GENERAL: Awake, alert, and fully oriented, in mild resp distress HEAD: No signs of trauma EYES: PERRLA, EOMI, sclera anicteric, conjunctiva clear ENT: Auricles normal inspection, hearing grossly normal, nares patent, oropharynx clear without exudates. Moist mucosa NECK: Normal ROM, supple, no lymphadenopathy, JVD, or masses LUNGS: BS mildly diminished at the bases, no wheezes, and no crackles HEART: Regular rate and rhythm, normal S1 and S2, no murmurs, rubs or gallops ABDOMEN: Soft, nontender, normoactive bowel sounds. No guarding, no rebound. No masses EXTREMITIES: Normal range of motion, trace LE symmetric pitting edema. No cyanosis. No cords, erythema, or tenderness. +clubbing. LUE fistula with palpable thrill. NEUROLOGICAL: Normal speech, cranial nerves intact, negative pronator drift, 5/ 5 strength in all 4 extremities, normal sensation to light touch in all 4 extremities, normal cerebellar exam, normal reflexes and tone SKIN: Warm, Dry, normal turgor, no rashes or lesions noted. <Aisha Georges - Last Filed: 02/04/18 17:15> ED Treatment Course - LABORATORY CBC & Chemistry Diagram: 02/04/18 11:35 02/04/18 11:35 <Romero Montaño - Last Filed: 02/04/18 14:27> - LABORATORY CBC & Chemistry Diagram: 02/04/18 11:35 02/04/18 11:35 <Aisha Georges - Last Filed: 02/04/18 17:15> Medical Decision Making - Medical Decision Making 02/04/18 11:31 67yo M hx hypertension, hyperlipidemia, DM, ESRD currently preparing to start HD , LUE fistula (under eval by Dr. Lan, missed appt yest), HIV on HAART, cigarette smoking, laryngeal CA s/p radiation therapy 1 year ago p/w acute on chronic SOB. Vitals remarkable for hypertension, pt has yet to take his BP medications today. DDx includes ACS vs CHF vs renal failure vs hypertensive emergency vs PE. Plan: -labs -CXR -BP meds -reassess 02/04/18 14:27 Labs with fitness and wellness director 11, BUN 70s. Glucose 50s, given juice, rpt fs pending. CXR with congestion, but given sudden worsening of SOB yesterday and recent admission, dimer was sent. Dimer 6000s -> due to fitness and wellness director unable to CTA, also unable to VQ due to clear lungs. Will treat with heparin gtt, US LE ordered. Spoke with Dr. Pereyra who recommends 100mg lasix IVPB to try to get some fluid off. Two calls to Dr. Lan, awaiting call back to discuss fistula. Case discussed with SQUEEGEE FINISHER Saundra, pt accepted for admission to Dr. House Case discussed in detail with admitting physician including history, physical exam and ancillary studies. Admitting physician has assumed care for the patient, will follow all pending diagnostics and will complete the evaluation and treatment. <Romero Montaño - Last Filed: 02/04/18 14:27> - Medical Decision Making 02/04/18 13:20 Case discussed with patient's playground monitor, Dr. Pereyra. Call placed to vascular surgeon, Dr. Lan. Awaiting callback. 02/04/18 14:[address] Lan for consult. Awaiting callback. Will admit to [facility] Hospitalist <Aisha Georges - Last Filed: 02/04/18 17:15> *DC/Admit/Observation/Transfer - Discharge Dispostion Admit: Yes - Attestations Physician Attestion: 02/04/18 14:34 I, Dr. Romero Montaño MD, attest that this document has been prepared under my direction and personally reviewed by me in its entirety. I further attest, that it accurately reflects all work, treatment, procedures and medical decision -making performed by me. <Romero Montaño - Last Filed: 02/04/18 14:27> - Attestations Scribe Attestion: 02/04/18 11:58 Documentation prepared by Aisha Georges, acting as medical records manager for Romero Montaño MD. <Aisha Georges - Last Filed: 02/04/18 17:15> Diagnosis at time of Disposition: End stage renal disease, Shortness of breath - Discharge Dispostion Condition at time of disposition: Stable
[2018-02-04 11:51] LABS: BASO % 0.4 % (0-2.0); EOS % 0.4 % (0-4.5); LYMPH % 10.2 % (8-40); MCH 30.9 pg (25.7-33.7); MCHC 33.3 g/dl (32.0-35.9); MEAN CELL VOLUME 92.9 fl (80-96); MEAN PLT VOLUME 7.1 fl (7.5-11.1); MONO % 5.8 % (3.8-10.2); NEUT % 83.2 % (42.8-82.8); PLATELET COUNT 164 K/MM3 (134-434); RBC 2.58 M/mm3 (4.00-5.60); RDW 22.1 % (11.9-15.9); WHITE BLOOD COUNT 5.4 K/mm3 (4.0-10.0)
[2018-02-04 12:00] LABS: VENOUS PC02 29.1 mmHg (38-52); VENOUS PH 7.4 (7.32-7.42)
[2018-02-04 12:02] LABS: INR 0.96 (0.82-1.09); PROTHROMBIN TIME (PATIENT) 10.8 SEC (9.98-11.88)
[2018-02-04 12:05] LABS: ACTIVATED PTT 30.6 SECONDS (26.9-34.4)
[2018-02-04 12:21] LABS: ALK PHOS 97 U/L (45-117)
[2018-02-04 12:34] LABS: ALBUMIN 2.5 g/dl (3.4-5.0); ANION GAP 9 (8-16); BLOOD UREA NITROGEN 70 mg/dL (7-18); CALCIUM 7.9 mg/dL (8.5-10.1); CHLORIDE 114 mmol/L (98-107); CO2 19 mmol/L (21-32); GLUCOSE,RANDOM 53 mg/dL (74-106); POTASSIUM 4.9 mmol/L (3.5-5.1); SGOT/AST 19 U/L (15-37); SGPT/ALT 17 U/L (12-78); SODIUM 142 mmol/L (136-145); TOT PROT 6.4 g/dl (6.4-8.2)
[2018-02-04 13:04] LABS: BILIRUBIN,TOTAL < 0.1 mg/dL (0.2-1.0); CREATININE 11.5 mg/dL (0.7-1.3)
[2018-02-04] MEDS ORDERED: FUROSEMIDE 100 MG/10 ML INJECTABLE VIAL IVPB ONE (13:17)
--- NOTE | 2018-02-04 14:02 | CONSULT ---
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 Pt also noted to have a very high BP but did not take his meds this morning. Pt s/p recent admission for dialysis initiation but signed out AMA after they were having difficulty canulating his graft and has not been responding to phone calls since. No CP, Fever, chills, N/V/D. PMhx: as above Alergies: NKDA Family Hx: NC Social Hx: Current smoker ROS: as per HPI Home Medications Medication Instructions Recorded Unobtainable [Unobtainable] 02/04/18 Vital Signs Temperature 97.6 F 02/04/18 11:06 Pulse Rate 90 02/04/18 11:20 Respiratory Rate 22 02/04/18 11:06 Blood Pressure 175/110 02/04/18 11:06 O2 Sat by Pulse Oximetry (%) 98 02/04/18 11:20 Intake & Output 02/01/18 02/02/18 02/03/18 02/04/18 23:59 23:59 23:59 23:59 Weight 81.647 kg NAD on NC O2 Neck supple, no JVD MMM RRR, No M/R Dec Bs b/l lung allred, no overt rales soft NT/ND Trace LE edema, no clubbing or cyanosis no focal neurologic defects Left arm AVG in place CBC, BMP 02/04/18 11:35 02/04/18 11:35 Laboratory Tests 02/04/18 02/04/18 11:35 11:35 Calcium 7.9 L Magnesium 2.0 B-Natriuretic Peptide 6013.62 H Albumin 2.5 L 67 year odl gentleman with PMhx of 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 , hypertension, HIV, Chronic Anemia, Current smoker, Hx of laryngeal Ca who presented with SOB and admitted for fluid overload #CHF/Fluid overload #CKD Stage 4 #Uncontrolled hypertension #Metabolic acidosis #Chronic Anemia Lasix IVPB in the ED and monitor clinical response, if pt is responsive can continue Q12h Vascular Sx consult for evaluate AVG to determine if it can be used Restart Nifedpine XL 60mg PO now Continue sodium bicarb 650mg Daily for acidosis no acute indication for transfusion at this time Will likely need IV iron or DIONNA check Hepatitis profile today in case pt needs to start dialysis Thank you Trey Pereyra DO
[2018-02-04] MEDS ORDERED: FUROSEMIDE 40 MG/4 ML INJECTABLE VIAL ONE (14:12)
[2018-02-04] MEDS ORDERED: HEPARIN NA (PORCINE) 5,000 UNITS/ML 1ML VIAL IVPUSH PRN ×2 (14:24)
[2018-02-04] MEDS ORDERED: HEPARIN INFUSION - 25,000 UNITS/500 ML INFUS.BAG IVPB SCH ×2 (14:30→16:48)
[2018-02-04 15:02] LABS: URINE APPEARANCE SLCLOUDY; URINE BILIRUBIN NEGATIVE (<2.0 mg/dL); URINE COLOR LTYELLOW; URINE GLUCOSE (UA) NEGATIVE (NEGATIVE); URINE KETONE NEGATIVE (NEGATIVE); URINE NITRITE NEGATIVE (NEGATIVE); URINE UROBILINOGEN NEGATIVE mg/dL (0.2-1.0)
[2018-02-04 15:03] LABS: URINE LEUK ESTERASE 1+ (NEGATIVE); URINE PROTEIN 3+ (NEGATIVE)
[2018-02-04] MEDS ORDERED: HEPARIN INFUSION - 25,000 UNITS/500 ML INFUS.BAG IVPB ONE (15:07)
[2018-02-04 15:09] LABS: EPI CELLS RARE /HPF (FEW); URINE MUCUS RARE
--- NOTE | 2018-02-04 15:17 | EKG ---
Test Reason : Blood Pressure : / mmHG Vent. Rate : 090 BPM Atrial Rate : 090 BPM P-R Int : 144 ms QRS Dur : 090 ms QT Int : 372 ms P-R-T Axes : 040 043 062 degrees QTc Int : 455 ms NORMAL SINUS RHYTHM POSSIBLE LEFT ATRIAL ENLARGEMENT LEFT VENTRICULAR HYPERTROPHY ABNORMAL ECG WHEN COMPARED WITH ECG OF 21-JAN-2018 11:00, NO SIGNIFICANT CHANGE WAS FOUND Confirmed by LINH VILLATORO MD ([id number]) on 02/04/2018 3:17:07 PM Referred By: Confirmed By:LINH VILLATORO MD
--- NOTE | 2018-02-04 15:50 | HP ---
CHIEF COMPLAINT: shortness of breath PCP: Dr. Cortez HISTORY OF PRESENT ILLNESS: This is a 67 year old male with PMHx of anemia, laryngeal/throat cancer (s/p radiation 03/2017), ESRD (not on HD yet), HIV (on HAART), HTN, hyperlipidemia who presented to the ED with worsening shortness of breath. The patient was admitted on 01/21/18 and signed out AMA. He now returns with acute on chronic shortness of breath. He states this morning his shortness of breath worsened and he states "he couldn't breathe". He denies any chest pain, palpitations, lower extremity swelling. The patient does report dysuria, frequency, urgency. ER course was notable for: (1) Temp 97.6, pulse 94, BP 175/110, resp 22, O2 98% on RA (2) Hgb 8 (3) Cr 11.5 (4) BNP 6013 (5) D-dimer: 6335. Started on Heparin gtt (6) UA with 1+ leuks, 113 WBC (7) Chest x-ray with increased cardiac silhouette. mild to moderate cardiomegaly. Minimal bibasal atelectatic changes. Questionable tiny right pleural effusion Recent Travel: denies PAST MEDICAL HISTORY: as above PAST SURGICAL HISTORY: as above Social History: Smokin/2ppd Alcohol: denies Drugs: denies Family History: Allergies No Known Drug Allergies Allergy (Verified 02/04/18 11:04) HOME MEDICATIONS: Home Medications Medication Instructions Recorded Abacavir Sulfate [Abacavir] 300 mg PO DAILY 02/04/18 Amlodipine Besylate 10 mg PO DAILY 02/04/18 Atenolol [Tenormin -] 25 mg PO DAILY 02/04/18 Cholecalciferol (Vitamin D3) 1,000 unit PO DAILY 02/04/18 [Vitamin D3] Citalopram Hydrobromide 20 mg PO DAILY 02/04/18 [Citalopram HBr] Dolutegravir Sodium [Tivicay] 50 mg PO DAILY 02/04/18 Ferrous Sulfate 325 mg PO BID 02/04/18 Glipizide [Glipizide ER] 0 mg PO BID 02/04/18 Lamivudine [Epivir Hbv] 100 mg PO DAILY 02/04/18 Pravastatin Sodium [Pravachol] 40 mg PO DAILY 02/04/18 Sodium Fluoride/Potassium Nit 100 ml DT BID 02/04/18 [Prevident 5000 Enamel Protect] Tamsulosin HCl [Flomax] 0.4 mg PO DAILY 02/04/18 Zolpidem Tartrate [Ambien] 5 mg PO HS MDD mmd1 02/04/18 REVIEW OF SYSTEMS CONSTITUTIONAL: Absent: fever, chills, diaphoresis, generalized weakness, malaise, loss of appetite, weight change HEENT: Absent: rhinorrhea, nasal congestion, throat pain, throat swelling, difficulty swallowing, mouth swelling, ear pain, eye pain, visual changes CARDIOVASCULAR: Absent: chest pain, syncope, palpitations, irregular heart rate, lightheadedness , peripheral edema RESPIRATORY: chronic shortness of breath that worsened this morning. Absent: cough, wheezing, stridor, hemoptysis GASTROINTESTINAL: Absent: abdominal pain, abdominal distension, nausea, vomiting, diarrhea, constipation, melena, hematochezia GENITOURINARY: Dysuria, frequency, urgency Absent: hesitancy, hematuria, flank pain, genital pain MUSCULOSKELETAL: Absent: myalgia, arthralgia, joint swelling, back pain, neck pain SKIN: Absent: rash, itching, pallor HEMATOLOGIC/IMMUNOLOGIC: Absent: easy bleeding, easy bruising, lymphadenopathy, frequent infections ENDOCRINE: Absent: unexplained weight gain, unexplained weight loss, heat intolerance, cold intolerance NEUROLOGIC: Absent: headache, focal weakness or paresthesias, dizziness, unsteady gait, seizure, mental status changes, bladder or bowel incontinence PSYCHIATRIC: Absent: anxiety, depression, suicidal or homicidal ideation, hallucinations. PHYSICAL EXAMINATION Vital Signs - 24 hr 02/04/18 02/04/18 02/04/18 11:06 11:20 14:24 Temperature 97.6 F Pulse Rate 94 H 90 Pulse Rate [ 90 Apical] Respiratory 22 20 Rate Blood Pressure 175/110 Blood Pressure 169/99 [Right Arm] O2 Sat by Pulse 98 98 99 Oximetry (%) GENERAL: Awake, alert, and fully oriented, in no acute distress. Breathy voice HEAD: Normal with no signs of trauma. EYES: Pupils equal, round and reactive to light, extraocular movements intact, sclera anicteric, conjunctiva clear. No lid lag. EARS, NOSE, THROAT: Ears normal, nares patent, oropharynx clear without exudates. Moist mucous membranes. NECK: Normal range of motion, supple without lymphadenopathy, JVD, or masses. LUNGS: B/l rhonchi. HEART: Regular rate and rhythm, normal S1 and S2 without murmur, rub or gallop. ABDOMEN: Soft, nontender, not distended, normoactive bowel sounds, no guarding, no rebound, no masses. No hepatomegaly or splenomegaly. MUSCULOSKELETAL: Normal range of motion at all joints. No bony deformities or tenderness. No CVA tenderness. UPPER EXTREMITIES: LUE with AV fistula, +thrill, + bruit. 2+ pulses, warm, well -perfused. No cyanosis. No clubbing. No peripheral edema. LOWER EXTREMITIES: 2+ pulses, warm, well-perfused. No calf tenderness. No peripheral edema. NEUROLOGICAL: Cranial nerves II-XII intact. PSYCHIATRIC: Cooperative. Good eye contact. Appropriate mood and affect. SKIN: Warm, dry, normal turgor, no rashes or lesions noted, normal capillary refill. Laboratory Results - last 24 hr 02/04/18 02/04/18 02/04/18 11:35 11:35 11:35 WBC 5.4 RBC 2.58 L Hgb 8.0 L Hct 24.0 L MCV 92.9 MCH 30.9 MCHC 33.3 RDW 22.1 H Plt Count 164 MPV 7.1 L Neutrophils % 83.2 H D Lymphocytes % 10.2 D Monocytes % 5.8 Eosinophils % 0.4 Basophils % 0.4 PT with INR 10.80 INR 0.96 PTT (Actin FS) 30.6 D-Dimer 6335 H VBG pH POC VBG pCO2 POC VBG pO2 Mixed VBG HCO3 Sodium 142 Potassium 4.9 Chloride 114 H Carbon Dioxide 19 L Anion Gap 9 BUN 70 H D Creatinine 11.5 H* D Creat Clearance w eGFR 4.48 Random Glucose 53 L D Calcium 7.9 L Magnesium 2.0 Total Bilirubin < 0.1 L D AST 19 D ALT 17 D Alkaline Phosphatase 97 Troponin I 0.03 D B-Natriuretic Peptide Total Protein 6.4 Albumin 2.5 L Urine Color Urine Appearance Urine pH Ur Specific [place] Urine Protein Urine Glucose (UA) Urine Ketones Urine Blood Urine Nitrite Urine Bilirubin Urine Urobilinogen Ur Leukocyte Esterase Urine WBC (Auto) Urine RBC (Auto) Ur Epithelial Cells Urine Mucus Blood Type Antibody Screen 02/04/18 02/04/18 02/04/18 11:35 11:35 11:35 WBC RBC Hgb Hct MCV MCH MCHC RDW Plt Count MPV Neutrophils % Lymphocytes % Monocytes % Eosinophils % Basophils % PT with INR INR PTT (Actin FS) D-Dimer VBG pH 7.40 POC VBG pCO2 29.1 L POC VBG pO2 106.0 H Mixed VBG HCO3 17.4 L Sodium Potassium Chloride Carbon Dioxide Anion Gap BUN Creatinine Creat Clearance w eGFR Random Glucose Calcium Magnesium Total Bilirubin AST ALT Alkaline Phosphatase Troponin I B-Natriuretic Peptide 6013.62 H Total Protein Albumin Urine Color Urine Appearance Urine pH Ur Specific [place] Urine Protein Urine Glucose (UA) Urine Ketones Urine Blood Urine Nitrite Urine Bilirubin Urine Urobilinogen Ur Leukocyte Esterase Urine WBC (Auto) Urine RBC (Auto) Ur Epithelial Cells Urine Mucus Blood Type O POSITIVE Antibody Screen Negative 02/04/18 14:24 WBC RBC Hgb Hct MCV MCH MCHC RDW Plt Count MPV Neutrophils % Lymphocytes % Monocytes % Eosinophils % Basophils % PT with INR INR PTT (Actin FS) D-Dimer VBG pH POC VBG pCO2 POC VBG pO2 Mixed VBG HCO3 Sodium Potassium Chloride Carbon Dioxide Anion Gap BUN Creatinine Creat Clearance w eGFR Random Glucose Calcium Magnesium Total Bilirubin AST ALT Alkaline Phosphatase Troponin I B-Natriuretic Peptide Total Protein Albumin Urine Color Ltyellow Urine Appearance Slcloudy Urine pH 8.0 Ur Specific [place] 1.013 Urine Protein 3+ H Urine Glucose (UA) Negative Urine Ketones Negative Urine Blood Negative Urine Nitrite Negative Urine Bilirubin Negative Urine Urobilinogen Negative Ur Leukocyte Esterase 1+ H Urine WBC (Auto) 113 Urine RBC (Auto) 1 Ur Epithelial Cells Rare Urine Mucus Rare Blood Type Antibody Screen Assessment: This is a 67 year old male with PMHx of anemia, laryngeal/throat cancer (s/p radiation 03/2017), ESRD (not on HD yet), HIV (on HAART), HTN, hyperlipidemia who presented to the ED with worsening shortness of breath. Plan: 1) Acute CHF exacerbation - Received Lasix in ED - Strict I&O - Daily weights - F/u ECHO - Diuretics per nephrology - F/u cardiology consult 2) SOB, elevated D-dimer - F/u lower extremity dopplers - Discussed with Dr. Pereyra, will chest CTA if going for HD - Started on heparin gtt, increased rate to 18u/kg per PE/DVT protocol 2) ESRD - AVG marked for cannulation per vascular surgery - F/u further recommendations from nephrology 3) HIV - Continue home medications 4) HTN - Procardia - Atenolol 5) DM - BGM ACHS - ISS ACHS 6) F/E/N: - Monitor electrolytes - Diabetic/sodium controlled diet 7) Prophylaxis: - On Heparin gtt 8) Dispo: - Requires continued inpatient care CODE STATUS: FULL CODE Visit type - Emergency Visit Emergency Visit: Yes ED Registration Date: 02/04/18 Care time: The patient presented to the Emergency Department on the above date and was hospitalized for further evaluation of their emergent condition. - New Patient This patient is new to me today: Yes Date on this admission: 02/23/18 - Critical Care Critical Care patient: No Hospitalist Screening - Colonoscopy Questionnaire Colonoscopy Questionnaire: Colonoscopy Questionnaire - Patient: 50 - 75 years old and never had a screening colonoscopy: Unknown History of colon or rectal polyps, or CA: Unknown History of IBD, Crohn's disease or UC: Unknown History of abdominal radiation therapy as a child: Unknown - Relative: 1 with colon or rectal CA, or polyps at age 60 or younger: Unknown Colon or rectal CA diagnosed at age 45 or younger: Unknown Multiple relatives with colon or rectal CA: Unknown - Outcome: Screening Result: Negative Screen
--- NOTE | 2018-02-04 16:52 | PN ---
Progress Note (short form) - Note Progress Note: vascular surgery Pt seen and examined. Left avg with good bruit and thrill. AVG marked for cannulation. Arnold young DO
[2018-02-04] MEDS: NIFEdipine E.R 60 MG TABLET (UD) PO SCH (17:21)
[2018-02-04] MEDS ORDERED: ATENOLOL 25 MG TABLET (FP) PO SCH ×2 (18:48→19:00)
[2018-02-04 20:43] LABS: INR 1.02 (0.82-1.09); PROTHROMBIN TIME (PATIENT) 11.5 SEC (9.98-11.88)
[2018-02-04] MEDS ORDERED: cefTRIAXone SODIUM 1 GM VIAL ONE (21:06)
[2018-02-04] MEDS ORDERED: DEXTROSE 5%-WATER - 50 ML IVPB ONE (21:07)
[2018-02-04] MEDS: CEFTRIAXONE 1 GM in DEXTROSE 5%-WATER - 50 ML IVPB SCH (21:20)
[2018-02-04] MEDS: FERROUS SO4 325 MG TABLET (FP) PO SCH (21:21)
[2018-02-04] MEDS: INSULIN (NOVOLOG) ASPART 100 UNITS/ML 10ML VIAL SQ SCH (21:33)
[2018-02-04] MEDS ORDERED: ATENOLOL 50 MG TABLET (FP) PO ONE ×2 (21:39→22:00)
[2018-02-05] MEDS ORDERED: guaiFENesin 200 MG/10 ML 10 ML UNIT-DOSE CUPS PO PRN (01:55)
--- NOTE | 2018-02-05 03:18 | HOSP ---
Subjective - Review of Symptoms Events since last encounter: Hospitalist Encounter Notified by the RN that the patient had episodes of hemopytsis Per RN it was noted at first to be blood tinged with cough, after several hrs- cough with small clots, it became concerning to the nurse Now, patient has hemoptysis with small clots Heparin Infusion Held 2/2 Mook hemoptysis, will obtain CBC in am Pulmonary: Yes: Other (hemoptysis) Physical Examination Vital Signs: Vital Signs Temperature 98.5 F 02/04/18 20:06 Pulse Rate 95 H 02/04/18 20:06 Respiratory Rate 20 02/04/18 20:28 Blood Pressure 197/98 02/04/18 20:06 O2 Sat by Pulse Oximetry (%) 99 02/04/18 20:28 Constitutional: Yes: Mild Distress, Thin Eyes: Yes: PERRL HENT: Yes: WNL, Atraumatic, Normocephalic Neck: Yes: WNL, Supple, Trachea Midline Cardiovascular: Yes: WNL, Regular Rate and Rhythm, S1, S2 Respiratory: Yes: Diminished, Rhonchi Gastrointestinal: Yes: Normal Bowel Sounds, Soft Peripheral Pulses WNL: Yes Neurological: Yes: WNL, Alert, Oriented, Cran Nerves II-XII Intact ...Motor Strength: WNL Psychiatric: Yes: WNL, Alert, Oriented Labs: CBC, BMP 02/04/18 11:35 02/04/18 11:35 Current Medications Generic Name Dose Route Start Last Admin Trade Name Freq PRN Reason Stop Dose Admin Abacavir Sulfate 300 mg 02/05/18 10:00 Ziagen - PO DAILY JIMENEZ Atenolol 50 mg 02/05/18 10:00 Tenormin - PO DAILY [facility] Atorvastatin Calcium 10 mg 02/05/18 10:00 Lipitor - PO DAILY JIMENEZ Cholecalciferol 1,000 unit 02/05/18 10:00 Vitamin D3 - PO DAILY JIMENEZ Citalopram Hydrobromide 20 mg 02/05/18 10:00 Celexa - PO DAILY JIMENEZ Ferrous Sulfate 325 mg 02/04/18 22:00 02/04/18 21:21 Feosol - PO 325 mg BID JIMENEZ Administration Guaifenesin 10 ml 02/05/18 01:55 Robitussin - PO Q6H PRN COUGH Heparin Sodium (Porcine) 1,000 unit 02/04/18 14:24 Heparin - IVPUSH PRN PRN Heparin Heparin Sodium (Porcine) 5,000 unit 02/04/18 14:24 02/04/18 21:21 Heparin - IVPUSH 5,000 unit PRN PRN Administration Heparin Heparin Sodium/Dextrose 25,000 units in 500 mls @ 29 mls/hr 02/04/18 16:48 21:32 Heparin Infusion - IVPB 1,600 units/hr TITR JIMENEZ 32 mls/hr Protocol Titration 1,450 UNITS/HR Ceftriaxone Sodium 1 gm/ 50 mls @ 100 mls/hr 02/04/18 18:45 02/04/18 21:20 Dextrose IVPB 100 mls/hr DAILY JIMENEZ Administration Insulin Aspart 1 units 02/04/18 22:00 02/04/18 21:33 Novolog Vial SQ Not Given ACHS [facility] Protocol Lamivudine 100 mg 02/05/18 10:00 Epivir Oral Solution - PO DAILY JIMENEZ Nifedipine 60 mg 02/04/18 14:15 02/04/18 17:21 Procardia Xl - PO 60 mg DAILY JIMENEZ Administration
[2018-02-05] MEDS: INSULIN (NOVOLOG) ASPART 100 UNITS/ML 10ML VIAL SQ SCH ×3 (06:30→18:25)
[2018-02-05] MEDS: ATENOLOL 25 MG TABLET (FP) PO SCH ×2 (06:46→10:31)
[2018-02-05 07:36] LABS: BASO % 0.6 % (0-2.0); EOS % 0.8 % (0-4.5); HEMATOCRIT 24.7 % (35.4-49); HEMOGLOBIN 8.1 GM/dL (11.7-16.9); LYMPH % 15.6 % (8-40); MCH 30.9 pg (25.7-33.7); MCHC 32.9 g/dl (32.0-35.9); MEAN CELL VOLUME 93.8 fl (80-96); MEAN PLT VOLUME 7.6 fl (7.5-11.1); MONO % 8.9 % (3.8-10.2); NEUT % 74.1 % (42.8-82.8); PLATELET COUNT 159 K/MM3 (134-434); RBC 2.63 M/mm3 (4.00-5.60); RDW 22.3 % (11.9-15.9); WHITE BLOOD COUNT 6.2 K/mm3 (4.0-10.0)
[2018-02-05] MEDS ORDERED: ATENOLOL 25 MG TABLET (FP) PO ONE (07:50)
[2018-02-05] MEDS ORDERED: DEXTROSE 5%-WATER - 50 ML IVPB ONE (08:58)
[2018-02-05] MEDS ORDERED: cefTRIAXone SODIUM 1 GM VIAL ONE (08:58)
[2018-02-05] MEDS ORDERED: ATENOLOL 25 MG TABLET (FP) PO SCH ×2 (10:00)
[2018-02-05] MEDS ORDERED: amLODIPine BESYLATE 10 MG TABLET (FP) PO SCH (10:00)
[2018-02-05] MEDS: FERROUS SO4 325 MG TABLET (FP) PO SCH ×2 (10:29→21:41)
[2018-02-05] MEDS: CITALOPRAM HYDROBROMIDE 20 MG TABLET (FP) PO SCH (10:29)
[2018-02-05] MEDS: NIFEdipine E.R 60 MG TABLET (UD) PO SCH (10:29)
[2018-02-05] MEDS: CHOLECALCIFEROL (VITAMIN D3) 1,000 UNIT TABLET (FP) PO SCH (10:29)
[2018-02-05] MEDS: ATORVASTATIN CA 10 MG TABLET (FP) PO SCH (10:29)
[2018-02-05] MEDS: lamiVUDine 10 MG/1 ML BULK BOTTLE PO SCH (10:30)
[2018-02-05] MEDS: DOLUTEGRAVIR SODIUM 50 MG TABLET PO SCH (10:31)
[2018-02-05] MEDS: ABACAVIR SULFATE 300 MG TABLET PO SCH (10:31)
[2018-02-05] MEDS: CEFTRIAXONE 1 GM in DEXTROSE 5%-WATER - 50 ML IVPB SCH (10:34)
[2018-02-05] MEDS ORDERED: METOPROLOL TARTRATE 5 MG/5 ML VIAL IVPUSH SCH (11:45)
[2018-02-05] MEDS ORDERED: NIFEdipine E.R. 30 MG TABLET (FP) PO ONE (11:52)
[2018-02-05] MEDS ORDERED: FUROSEMIDE 40 MG/4 ML INJECTABLE VIAL IVPUSH ONE (11:53)
--- NOTE | 2018-02-05 11:59 | PN ---
Progress Note (short form) - Note Progress Note: Renal follow up for CKD stage 5 with volume overload Pt seen and examined at the bedside + orthopnea and hemoptysis yesterday BP very high this am seen by vascular and avg cleared to use pt is agreeable to dialysis Vital Signs Temperature 98.9 F 02/05/18 09:35 Pulse Rate 94 H 02/05/18 09:35 Respiratory Rate 22 02/05/18 09:35 Blood Pressure 204/121 02/05/18 09:35 O2 Sat by Pulse Oximetry (%) 99 02/05/18 09:00 Intake & Output 02/02/18 02/03/18 02/04/18 02/05/18 23:59 23:59 23:59 23:59 Intake Total 240 590 Output Total 500 1300 Balance -260 -710 Weight 81.647 kg 82.826 kg uncomfortable Neck supple, no JVD MMM RRR Dec Bs b/l lung allred, no overt rales soft NT/ND Trace LE edema, no clubbing or cyanosis Left arm AVG in place + thrill CBC, BMP 02/05/18 06:18 02/04/18 11:35 Laboratory Tests 02/04/18 11:35 Calcium 7.9 L Magnesium 2.0 Albumin 2.5 L Current Medications Abacavir Sulfate (Ziagen -) 300 mg PO DAILY [facility] Last Admin: 02/05/18 10:31 Dose: 300 mg Atorvastatin Calcium (Lipitor -) 10 mg PO DAILY [facility] Last Admin: 02/05/18 10:29 Dose: 10 mg Cholecalciferol (Vitamin D3 -) 1,000 unit PO DAILY [facility] Last Admin: 02/05/18 10:29 Dose: 1,000 unit Citalopram Hydrobromide (Celexa -) 20 mg PO DAILY [facility] Last Admin: 02/05/18 10:29 Dose: 20 mg Epoetin Donovan (Epogen -) 20,000 unit IVPUSH ONCE ONE Stop: 02/05/18 11:55 Ferrous Sulfate (Feosol -) 325 mg PO BID [facility] Last Admin: 02/05/18 10:29 Dose: 325 mg Furosemide (Lasix Injection -) 80 mg IVPUSH ONCE ONE Stop: 02/05/18 11:54 Guaifenesin (Robitussin -) 10 ml PO Q6H PRN PRN Reason: COUGH Heparin Sodium (Porcine) (Heparin -) 1,000 unit IVPUSH PRN PRN PRN Reason: Heparin Heparin Sodium (Porcine) (Heparin -) 5,000 unit IVPUSH PRN PRN PRN Reason: Heparin Last Admin: 02/04/18 21:21 Dose: 5,000 unit Heparin Sodium/Dextrose (Heparin Infusion -) 25,000 units in 500 mls @ 29 mls/ hr IVPB TITR JIMENEZ; 1,450 UNITS/HR PRN Reason: Protocol Last Titration: 02/04/18 21:32 Dose: 1,600 units/hr, 32 mls/hr Ceftriaxone Sodium 1 gm/ (Dextrose) 50 mls @ 100 mls/hr IVPB DAILY JIMENEZ Last Admin: 02/05/18 10:34 Dose: 100 mls/hr Sodium Chloride (Normal Saline -) 250 mls @ 3,000 mls/hr IV PRN PRN PRN Reason: Hypotension during Dialysis Stop: 02/06/18 11:54 Insulin Aspart (Novolog Vial) 1 units SQ ACHS JIMENEZ PRN Reason: Protocol Last Admin: 02/05/18 06:30 Dose: Not Given Lamivudine (Epivir Oral Solution -) 100 mg PO DAILY JIMENEZ Last Admin: 02/05/18 10:30 Dose: 100 mg Metoprolol Tartrate (Lopressor Injection -) 5 mg IVPUSH Q4H JIMENEZ Nifedipine (Procardia Xl -) 60 mg PO DAILY [facility] Last Admin: 02/05/18 10:29 Dose: 60 mg Nifedipine (Procardia Xl -) 30 mg PO ONCE ONE Stop: 02/05/18 11:53 67 year odl gentleman with PMhx of 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 recurrence of laryngeal Ca) will follow Thank you Trey Pereyra DO
--- NOTE | 2018-02-05 12:05 | PN ---
Physical Exam: SUBJECTIVE: Patient seen and examined at the bedside. Not feeling well, having intermittent chest pain when taking in a deep breath. OBJECTIVE: BP elevated Lasix 80mg x 1 as per renal, Procardia 30mg x 1 now Will have dialysis today Left AV fistula +bruit, thrill Heparin drip stopped when he developed hempoptysis overnight, negative for DVT - rule out PE, elevated d dimer (will discontinue hep gtt) echo pending Vital Signs Period Temp Pulse Resp BP Sys/Montes Pulse Ox Last 24 Hr 98.2 F-98.9 F 82-102 18-22 169-204/79-121 98-99 GENERAL: The patient is awake, alert, and fully oriented, in no acute distress. HEAD: Normal with no signs of trauma. EYES: PERRL, extraocular movements intact, sclera anicteric, conjunctiva clear. No ptosis. ENT: Ears normal, nares patent, oropharynx clear without exudates, moist mucous membranes. NECK: Trachea midline, full range of motion, supple. LUNGS: Breath sounds equal, clear to auscultation bilaterally, no wheezes, no crackles, no accessory muscle use. HEART: Regular rate and rhythm, night monitor SR 80s ABDOMEN: Soft, nontender, nondistended, normoactive bowel sounds, no guarding EXTREMITIES: no edema. NEUROLOGICAL: Normal speech, gait not observed. PSYCH: Normal mood, normal affect. SKIN: Left arm fistula +bruit, thrill Laboratory Results - last 24 hr 02/04/18 02/04/18 02/04/18 11:35 11:35 11:35 WBC 5.4 RBC 2.58 L Hgb 8.0 L Hct 24.0 L MCV 92.9 MCH 30.9 MCHC 33.3 RDW 22.1 H Plt Count 164 MPV 7.1 L Neutrophils % 83.2 H D Lymphocytes % 10.2 D Monocytes % 5.8 Eosinophils % 0.4 Basophils % 0.4 PT with INR 10.80 INR 0.96 PTT (Actin FS) 30.6 D-Dimer 6335 H VBG pH POC VBG pCO2 POC VBG pO2 Mixed VBG HCO3 Sodium 142 Potassium 4.9 Chloride 114 H Carbon Dioxide 19 L Anion Gap 9 BUN 70 H D Creatinine 11.5 H* D Creat Clearance w eGFR 4.48 POC Glucometer Random Glucose 53 L D Calcium 7.9 L Magnesium 2.0 Total Bilirubin < 0.1 L D AST 19 D ALT 17 D Alkaline Phosphatase 97 Creatine Kinase Creatine Kinase Index CK-MB (CK-2) Troponin I 0.03 D B-Natriuretic Peptide Total Protein 6.4 Albumin 2.5 L Urine Color Urine Appearance Urine pH Ur Specific Waldron Urine Protein Urine Glucose (UA) Urine Ketones Urine Blood Urine Nitrite Urine Bilirubin Urine Urobilinogen Ur Leukocyte Esterase Urine WBC (Auto) Urine RBC (Auto) Ur Epithelial Cells Urine Mucus Blood Type Antibody Screen 02/04/18 02/04/18 02/04/18 11:35 11:35 11:35 WBC RBC Hgb Hct MCV MCH MCHC RDW Plt Count MPV Neutrophils % Lymphocytes % Monocytes % Eosinophils % Basophils % PT with INR INR PTT (Actin FS) D-Dimer VBG pH 7.40 POC VBG pCO2 29.1 L POC VBG pO2 106.0 H Mixed VBG HCO3 17.4 L Sodium Potassium Chloride Carbon Dioxide Anion Gap BUN Creatinine Creat Clearance w eGFR POC Glucometer Random Glucose Calcium Magnesium Total Bilirubin AST ALT Alkaline Phosphatase Creatine Kinase Creatine Kinase Index CK-MB (CK-2) Troponin I B-Natriuretic Peptide 6013.62 H Total Protein Albumin Urine Color Urine Appearance Urine pH Ur Specific Wald[place] Urine Protein Urine Glucose (UA) Urine Ketones Urine Blood Urine Nitrite Urine Bilirubin Urine Urobilinogen Ur Leukocyte Esterase Urine WBC (Auto) Urine RBC (Auto) Ur Epithelial Cells Urine Mucus Blood Type O POSITIVE Antibody Screen Negative 02/04/18 02/04/18 02/04/18 14:24 18:45 18:45 WBC RBC Hgb Hct MCV MCH MCHC RDW Plt Count MPV Neutrophils % Lymphocytes % Monocytes % Eosinophils % Basophils % PT with INR 11.50 INR 1.02 PTT (Actin FS) 41.3 H D D-Dimer VBG pH POC VBG pCO2 POC VBG pO2 Mixed VBG HCO3 Sodium Potassium Chloride Carbon Dioxide Anion Gap BUN Creatinine Creat Clearance w eGFR POC Glucometer Random Glucose Calcium Magnesium Total Bilirubin AST ALT Alkaline Phosphatase Creatine Kinase Creatine Kinase Index CK-MB (CK-2) Troponin I B-Natriuretic Peptide Total Protein Albumin Urine Color Ltyellow Urine Appearance Slcloudy Urine pH 8.0 Ur Specific Waldron 1.013 Urine Protein 3+ H Urine Glucose (UA) Negative Urine Ketones Negative Urine Blood Negative Urine Nitrite Negative Urine Bilirubin Negative Urine Urobilinogen Negative Ur Leukocyte Esterase 1+ H Urine WBC (Auto) 113 Urine RBC (Auto) 1 Ur Epithelial Cells Rare Urine Mucus Rare Blood Type Antibody Screen 02/04/18 02/04/18 02/05/18 21:00 21:29 06:18 WBC 6.2 RBC 2.63 L Hgb 8.1 L Hct 24.7 L MCV 93.8 MCH 30.9 MCHC 32.9 RDW 22.3 H Plt Count 159 MPV 7.6 Neutrophils % 74.1 Lymphocytes % 15.6 D Monocytes % 8.9 Eosinophils % 0.8 D Basophils % 0.6 PT with INR INR PTT (Actin FS) D-Dimer VBG pH POC VBG pCO2 POC VBG pO2 Mixed VBG HCO3 Sodium Potassium Chloride Carbon Dioxide Anion Gap BUN Creatinine Creat Clearance w eGFR POC Glucometer 93 Random Glucose Calcium Magnesium Total Bilirubin AST ALT Alkaline Phosphatase Creatine Kinase 213 Creatine Kinase Index 1.4 CK-MB (CK-2) 3.160 Troponin I 0.04 D B-Natriuretic Peptide Total Protein Albumin Urine Color Urine Appearance Urine pH Ur Specific [place] Urine Protein Urine Glucose (UA) Urine Ketones Urine Blood Urine Nitrite Urine Bilirubin Urine Urobilinogen Ur Leukocyte Esterase Urine WBC (Auto) Urine RBC (Auto) Ur Epithelial Cells Urine Mucus Blood Type Antibody Screen 02/05/18 06:29 WBC RBC Hgb Hct MCV MCH MCHC RDW Plt Count MPV Neutrophils % Lymphocytes % Monocytes % Eosinophils % Basophils % PT with INR INR PTT (Actin FS) D-Dimer VBG pH POC VBG pCO2 POC VBG pO2 Mixed VBG HCO3 Sodium Potassium Chloride Carbon Dioxide Anion Gap BUN Creatinine Creat Clearance w eGFR POC Glucometer 98 Random Glucose Calcium Magnesium Total Bilirubin AST ALT Alkaline Phosphatase Creatine Kinase Creatine Kinase Index CK-MB (CK-2) Troponin I B-Natriuretic Peptide Total Protein Albumin Urine Color Urine Appearance Urine pH Ur Specific Wald[place] Urine Protein Urine Glucose (UA) Urine Ketones Urine Blood Urine Nitrite Urine Bilirubin Urine Urobilinogen Ur Leukocyte Esterase Urine WBC (Auto) Urine RBC (Auto) Ur Epithelial Cells Urine Mucus Blood Type Antibody Screen Active Medications Generic Name Dose Route Start Last Admin Trade Name Freq PRN Reason Stop Dose Admin Abacavir Sulfate 300 mg 02/05/18 10:00 02/05/18 10:31 Ziagen - PO 300 mg DAILY JIMENEZ Administration Atorvastatin Calcium 10 mg 02/05/18 10:00 02/05/18 10:29 Lipitor - PO 10 mg DAILY JIMENEZ Administration Cholecalciferol 1,000 unit 02/05/18 10:00 02/05/18 10:29 Vitamin D3 - PO 1,000 unit DAILY JIMENEZ Administration Citalopram Hydrobromide 20 mg 02/05/18 10:00 02/05/18 10:29 Celexa - PO 20 mg DAILY JIMENEZ Administration Epoetin Donovan 20,000 unit 02/05/18 11:54 Epogen - IVPUSH 02/05/18 11:55 ONCE ONE Ferrous Sulfate 325 mg 02/04/18 22:00 02/05/18 10:29 Feosol - PO 325 mg BID JIMENEZ Administration Furosemide 80 mg 02/05/18 11:53 Lasix Injection - IVPUSH 02/05/18 11:54 ONCE ONE Guaifenesin 10 ml 02/05/18 01:55 Robitussin - PO Q6H PRN COUGH Heparin Sodium (Porcine) 1,000 unit 02/04/18 14:24 Heparin - IVPUSH PRN PRN Heparin Heparin Sodium (Porcine) 5,000 unit 02/04/18 14:24 02/04/18 21:21 Heparin - IVPUSH 5,000 unit PRN PRN Administration Heparin Heparin Sodium/Dextrose 25,000 units in 500 mls @ 29 mls/hr 02/04/18 16:48 21:32 Heparin Infusion - IVPB 1,600 units/hr TITR JIMENEZ 32 mls/hr Protocol Titration 1,450 UNITS/HR Ceftriaxone Sodium 1 gm/ 50 mls @ 100 mls/hr 02/04/18 18:45 02/05/18 10:34 Dextrose IVPB 100 mls/hr DAILY JIMENEZ Administration Sodium Chloride 250 mls @ 3,000 mls/hr 02/05/18 11:54 Normal Saline - IV 02/06/18 11:54 PRN PRN Hypotension during Dialysis Insulin Aspart 1 units 02/04/18 22:00 02/05/18 06:30 Novolog Vial SQ Not Given ACHS [facility] Protocol Lamivudine 100 mg 02/05/18 10:00 02/05/18 10:30 Epivir Oral Solution - PO 100 mg DAILY JIMENEZ Administration Metoprolol Tartrate 5 mg 02/05/18 11:45 Lopressor Injection - IVPUSH Q4H JIMENEZ Nifedipine 60 mg 02/04/18 14:15 02/05/18 10:29 Procardia Xl - PO 60 mg DAILY JIMENEZ Administration Nifedipine 30 mg 02/05/18 11:52 Procardia Xl - PO 02/05/18 11:53 ONCE ONE ASSESSMENT/PLAN: Patient is a 67 year old male with a significant past medical history of hypertension, hyperlipidemia, NIDDM, ESRD, HIV+ (on HAART), anemia, throat cancer. Patient has had an AV fistula placed earlier this month for anticipated hemodialysis. Patient comes to the ED on 02/04/2018 with shortness of breath. The patient was admitted on 01/21/18 and signed out AMA and now returns with worsening shortness of breath. He states that at home breathing became labored and laying flat became difficult. Any physical activity rendered him short of breath. Echo: moderate aortic regurg, Pulm: Shortness of breath, acute on chronic On Supplemental oxygen rule out PE, DVT negative Chest CT ordered Was on heparin gtt but developed hemoptysis overnight and drip discontinued For dialysis today for volume overload Given lasix 80mg x 1 Echo reviewed Monitor intake and output Card: Hypertensive Urgency On Procardia 60mg daily and Sotalol 50mg daily, but remained hypertensive Will increase Procardia to 90mg Trops negative Monitor BP Acute on chronic diastolic heart failure Lasix, intake and output Hyperlipidemia, chronic Lipid panel Endocrine: Diabetes, chronic Novolog SS Monitor BGMs Renal: ESRD, dialsysis today via left arm fistula ID: HIV +, chronic on HAART meds UTI, on Ceftriaxone Await Heme: Anemia, chronic Stop heparin drip, monitor CBC Onc: Throat cancer, chronic s/p treatment F.E.N. Fluids: PO adequate, volume overloaded Electrolytes: monitor Nutrition: renal diet Prophy: GI: deferred DVT: stopped heparin gtt secondary to hemoptysis
--- NOTE | 2018-02-05 12:34 | CON.PULM ---
Consult Consult Specialty:: PULMONARY Referred by:: CARLOS Sims Reason for Consultation:: r/o PE - History of Present Illness Chief Complaint: shortness of breath History of Present Illness: 67yo male with h/o HTN, DM, ESRD on HD, HIV, laryngeal ca s/p RT who was admitted for worsening shortness of breath. Does report some chest discomfort. + nonproductive cough without wheezing. No fevers, chills or sweats. Had signed out AMA last admission during initiation of HD and has not been dialyzed since. Started smoking at age 17, smoked on average 1 PPD, now on electronic cigarettes. Had episode of shortness of breath overnight, started on heparin gtt for possible PE, developed gem hemoptysis. Reports some hemoptysis when he was receiving RT for his laryngeal ca. - History Source History Provided By: Patient, Medical Record Limitations to Obtaining History: No Limitations - Past Medical History Cardio/Vascular: Yes: HTN, Hyperlipdemia Pulmonary: Yes: COPD Gastrointestinal: Yes: Constipation, GERD Hepatobiliary: Yes: Other Renal/: Yes: Renal Inusuff, BPH Infectious Disease: Yes: HIV, STD's Musculoskeletal: Yes: Chronic low back pain Endocrine: Yes: Diabetes Mellitus (with retinopathy and nephropathy) Additional Medical History: Recovering alcoholic x 8 years. 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 History of Recent Travel: No Home Medications - Allergies Allergies/Adverse Reactions: Allergies Allergy/AdvReac Type Severity Reaction Status Date / Time No Known Drug Allergies Allergy Verified 02/04/18 11:04 - Home Medications Home Medications: Ambulatory Orders Abacavir Sulfate [Abacavir] 300 mg PO DAILY 02/04/18 Amlodipine Besylate 10 mg PO DAILY 02/04/18 Atenolol [Tenormin -] 25 mg PO DAILY 02/04/18 Cholecalciferol (Vitamin D3) [Vitamin D3] 1,000 unit PO DAILY 02/04/18 Citalopram Hydrobromide [Citalopram HBr] 20 mg PO DAILY 02/04/18 Dolutegravir Sodium [Tivicay] 50 mg PO DAILY 02/04/18 Ferrous Sulfate 325 mg PO BID 02/04/18 Glipizide [Glipizide ER] 0 mg PO BID 02/04/18 Lamivudine [Epivir Hbv] 100 mg PO DAILY 02/04/18 Pravastatin Sodium [Pravachol] 40 mg PO DAILY 02/04/18 Sodium Fluoride/Potassium Nit [Prevident 5000 Enamel Protect] 100 ml DT BID Tamsulosin HCl [Flomax] 0.4 mg PO DAILY 02/04/18 Zolpidem Tartrate [Ambien] 5 mg PO HS MDD mmd1 02/04/18 Family Disease History - Family Disease History Family Disease History: CA: Mother, Other: Father Review of Systems - Review of Systems Constitutional: reports: Weakness. denies: Chills, Fever Eyes: denies: Recent Change in Vision HENT: denies: Mouth Swelling, Nasal Congestion Neck: denies: Stiffness, Tenderness Cardiovascular: reports: Chest Pain, Shortness of Breath. denies: Edema, Palpitations Respiratory: reports: Cough, Hemoptysis, SOB, SOB on Exertion. denies: Wheezing Gastrointestinal: denies: Abdominal Pain, Nausea, Vomiting Genitourinary: denies: Dysuria, Hematuria Neurological: denies: Dizziness, Headache Endocrine: denies: Unexplained Weight Gain, Unexplained Weight Loss Physical Exam Vital Sings: Vital Signs Temperature 98.9 F 02/05/18 09:35 Pulse Rate 94 H 02/05/18 09:35 Respiratory Rate 22 02/05/18 09:35 Blood Pressure 204/121 02/05/18 09:35 O2 Sat by Pulse Oximetry (%) 99 02/05/18 09:00 Constitutional: Yes: Calm Eyes: Yes: Conjunctiva Clear, EOM Intact HENT: Yes: Atraumatic, Normocephalic Neck: Yes: Supple, Trachea Midline Cardiovascular: Yes: Tachycardia Respiratory: Yes: Rhonchi ...Clubbing: No Gastrointestinal: Yes: Normal Bowel Sounds, Soft. No: Tenderness Edema: No Neurological: Yes: Alert, Oriented Labs: CBC, BMP 02/05/18 06:18 02/04/18 11:35 Imaging - Results Chest X-ray: Report Reviewed, Image Reviewed (cardiomegaly, pulmonary vascular congestion, small effusion) Problem List - Problems (1) Hypertensive urgency Code(s): I16.0 - HYPERTENSIVE URGENCY (2) Diabetes Code(s): E11.9 - TYPE 2 DIABETES MELLITUS WITHOUT COMPLICATIONS (3) HIV (human immunodeficiency virus infection) Code(s): Z21 - ASYMPTOMATIC HUMAN IMMUNODEFICIENCY VIRUS INFECTION STATUS (5) Hemoptysis Code(s): R04.2 - HEMOPTYSIS Assessment/Plan Hypertensive Urgency ESRD on HD Hemoptysis DM h/o Laryngeal Ca Smoker - HD per renal with ultrafiltration - echocardiogram - O2 to keep spo2 >90% - low clinical suspicion for PE as pt appears to be clinically overloaded with congested CXR and negative LE dopplers, can defer anticoagulation especially with hemoptysis - will order CT chest noncontrast to further investigate hemoptysis - DVT prophylaxis Thank you for this consult Enrrique Small MD
--- NOTE | 2018-02-05 13:20 | CON.CARD ---
Consult Consult Specialty:: cardiology Referred by:: Taylor Reason for Consultation:: Shortness of breath - History of Present Illness Chief Complaint: Shortness of breath and fatigue History of Present Illness: The patient is a 67-year-old man, HIV+ on HAART, history of diabetes, hypertension, hyperlipidemia, throat/laryngeal cancer, status post radiation therapy 04/05, end-stage renal disease approaching hemodialysis, now presenting with shortness of breath. The patient reports difficulty breathing, paroxysmal nocturnal dyspnea. Currently more comfortable. Denied chest pains. - History Source History Provided By: Patient, Medical Record Limitations to Obtaining History: No Limitations - Past Medical History Cardio/Vascular: Yes: HTN, Hyperlipdemia Pulmonary: Yes: COPD Gastrointestinal: Yes: Constipation, GERD Hepatobiliary: Yes: Other Renal/: Yes: Renal Inusuff, BPH Infectious Disease: Yes: HIV, STD's Musculoskeletal: Yes: Chronic low back pain Endocrine: Yes: Diabetes Mellitus (with retinopathy and nephropathy) Additional Medical History: Recovering alcoholic x 8 years. 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 History of Recent Travel: No Home Medications - Allergies Allergies/Adverse Reactions: Allergies Allergy/AdvReac Type Severity Reaction Status Date / Time No Known Drug Allergies Allergy Verified 02/04/18 11:04 - Home Medications Home Medications: Ambulatory Orders Abacavir Sulfate [Abacavir] 300 mg PO DAILY 02/04/18 Amlodipine Besylate 10 mg PO DAILY 02/04/18 Atenolol [Tenormin -] 25 mg PO DAILY 02/04/18 Cholecalciferol (Vitamin D3) [Vitamin D3] 1,000 unit PO DAILY 02/04/18 Citalopram Hydrobromide [Citalopram HBr] 20 mg PO DAILY 02/04/18 Dolutegravir Sodium [Tivicay] 50 mg PO DAILY 02/04/18 Ferrous Sulfate 325 mg PO BID 02/04/18 Glipizide [Glipizide ER] 0 mg PO BID 02/04/18 Lamivudine [Epivir Hbv] 100 mg PO DAILY 02/04/18 Pravastatin Sodium [Pravachol] 40 mg PO DAILY 02/04/18 Sodium Fluoride/Potassium Nit [Prevident 5000 Enamel Protect] 100 ml DT BID Tamsulosin HCl [Flomax] 0.4 mg PO DAILY 02/04/18 Zolpidem Tartrate [Ambien] 5 mg PO HS MDD mmd1 02/04/18 Family Disease History - Family Disease History Family Disease History: CA: Mother, Other: Father Review of Systems - Review of Systems Constitutional: reports: Lethargy, Malaise, Weakness Eyes: reports: No Symptoms HENT: reports: No Symptoms Neck: reports: No Symptoms Cardiovascular: reports: Shortness of Breath Respiratory: reports: SOB Gastrointestinal: reports: No Symptoms Genitourinary: reports: No Symptoms Breasts: reports: No Symptoms Reported Musculoskeletal: reports: Back Pain Integumentary: reports: No Symptoms Neurological: reports: No Symptoms Endocrine: reports: No Symptoms Hematology/Lymphatic: reports: No Symptoms Psychiatric: reports: No Symptoms Vital Signs: Vital Signs Temperature 97.6 F 02/05/18 13:00 Pulse Rate 69 02/05/18 13:00 Respiratory Rate 22 02/05/18 09:35 Blood Pressure 146/64 02/05/18 13:00 O2 Sat by Pulse Oximetry (%) 99 02/05/18 09:00 Constitutional: Yes: Well Nourished, No Distress, Calm Eyes: Yes: WNL, Conjunctiva Clear, EOM Intact HENT: Yes: WNL, Atraumatic, Normocephalic Neck: Yes: WNL, Supple, Trachea Midline Respiratory: Yes: Accessory Muscle Use, Rales, SOB Gastrointestinal: Yes: WNL, Normal Bowel Sounds, Soft Renal/: Yes: WNL JVD: No Carotid Bruit: No PMI: Non-Displaced Heart Sounds: Yes: S1, S2 Murmur: Yes: Systolic Murmur, Grade 2 Musculoskeletal: Yes: Back Pain Extremities: Yes: WNL Edema: No Peripheral Pulses: 1+ Left Carotid, 1+ Right Carotid, 1+ Left Femoral, 1+ Right Femoral, 1+ Left Popliteal, 1+ Right Popliteal, 1+ Left Doralis Pedis, 1+ Right Dorsalis Pedis Integumentary: Yes: WNL Neurological: Yes: WNL, Alert, Oriented ...Motor Strength: WNL Psychiatric: Yes: WNL - Other Data Labs, Other Data: CBC, BMP 02/05/18 06:18 02/04/18 11:35 INR, PTT INR 1.02 (0.82-1.09) 02/04/18 18:45 Troponin, BNP 02/04/18 21:00 Troponin I 0.04 D Troponin, BNP 02/04/18 21:00 Troponin I 0.04 D Assessment/Plan 67-year-old man a JVD+ on HAART, diabetes, hypertension, hyperlipidemia, laryngeal cancer, status post radiation therapy, end-stage renal disease approaching hemodialysis, now presenting with shortness of breath. Mild acute on chronic diastolic heart failure. The patient's echocardiogram showed that both ventricles are functioning normally. There were no other clinically important findings on that study. The patient is in sinus rhythm. There are no acute ECG changes. Please continue intravenous Lasix as currently. Low-sodium diet. May switch to oral Lasix, starting Friday morning. There is no need for further cardiac workup nor testing at this point. The patient is clinically better. Consider an infectious disease consultation. There is no need for cardiac monitoring. Please do not hesitate to call us PRN
[2018-02-05] MEDS ORDERED: SODIUM CHLORIDE 250 ML IV PRN ×2 (14:58→18:49)
[2018-02-05] MEDS ORDERED: EPOETIN ALFA 20,000 UNIT/1 ML VIAL IVPUSH ONE (15:00)
[2018-02-05] MEDS: INSULIN SLIDING SCALE (NOVOLOG) 1 VIAL SQ SCH (21:43)
[2018-02-06] MEDS: INSULIN SLIDING SCALE (NOVOLOG) 1 VIAL SQ SCH ×2 (06:02→12:00)
[2018-02-06 06:49] LABS: BASO % 0.6 % (0-2.0); EOS % 0.9 % (0-4.5); HEMATOCRIT 22.4 % (35.4-49); HEMOGLOBIN 7.6 GM/dL (11.7-16.9); LYMPH % 22.6 % (8-40); MCH 31.5 pg (25.7-33.7); MCHC 33.8 g/dl (32.0-35.9); MEAN PLT VOLUME 7.6 fl (7.5-11.1); MONO % 12.2 % (3.8-10.2); NEUT % 63.7 % (42.8-82.8); PLATELET COUNT 160 K/MM3 (134-434); RBC 2.41 M/mm3 (4.00-5.60); RDW 21.8 % (11.9-15.9); WHITE BLOOD COUNT 5.8 K/mm3 (4.0-10.0)
[2018-02-06 07:07] LABS: ALBUMIN 2.3 g/dl (3.4-5.0); ANION GAP 8 (8-16); BLOOD UREA NITROGEN 60 mg/dL (7-18); CALCIUM 8.1 mg/dL (8.5-10.1); CHLORIDE 109 mmol/L (98-107); CO2 24 mmol/L (21-32); GLUCOSE,RANDOM 103 mg/dL (74-106); MAGNESIUM 1.8 mg/dL (1.8-2.4); POTASSIUM 4.9 mmol/L (3.5-5.1); SODIUM 141 mmol/L (136-145)
[2018-02-06 07:08] LABS: ADD RBC MORPHOLOGY YES
[2018-02-06 07:17] LABS: ALK PHOS 91 U/L (45-117); BILIRUBIN,TOTAL 0.1 mg/dL (0.2-1.0); SGOT/AST 19 U/L (15-37); SGPT/ALT 15 U/L (12-78); TOT PROT 5.9 g/dl (6.4-8.2)
[2018-02-06 07:20] LABS: CREATININE 9.8 mg/dL (0.7-1.3)
[2018-02-06] MEDS ORDERED: NIFEdipine E.R. 90 MG TABLET (FP) PO SCH (09:00)
--- NOTE | 2018-02-06 09:16 | PN ---
Progress Note (short form) - Note Progress Note: + thrill AVF used yesterday without problems. Cont management per medicine. Re-consult surgery prn On behalf of Dr. Lan, thank you for the opportunity to participate in your pateint's care.
[2018-02-06 09:33] LABS: ANISOCYTOSIS 2+; OVALOCYTE 2+; PLATELET ESTIMATE DECREASED
[2018-02-06] MEDS ORDERED: cefTRIAXone SODIUM 1 GM VIAL ONE (09:45)
[2018-02-06] MEDS ORDERED: DEXTROSE 5%-WATER - 50 ML IVPB ONE (09:45)
[2018-02-06 10:00] LABS: PHOSPHOROUS 4.3 mg/dL (2.5-4.9)
[2018-02-06] MEDS ORDERED: ATENOLOL 50 MG TABLET (FP) PO SCH (10:00)
[2018-02-06] MEDS: lamiVUDine 10 MG/1 ML BULK BOTTLE PO SCH (11:59)
[2018-02-06] MEDS: FERROUS SO4 325 MG TABLET (FP) PO SCH (11:59)
[2018-02-06] MEDS: CITALOPRAM HYDROBROMIDE 20 MG TABLET (FP) PO SCH (11:59)
[2018-02-06] MEDS: ATORVASTATIN CA 10 MG TABLET (FP) PO SCH (11:59)
[2018-02-06] MEDS: CEFTRIAXONE 1 GM in DEXTROSE 5%-WATER - 50 ML IVPB SCH (11:59)
[2018-02-06] MEDS: DOLUTEGRAVIR SODIUM 50 MG TABLET PO SCH (12:00)
[2018-02-06] MEDS: ABACAVIR SULFATE 300 MG TABLET PO SCH (12:00)
[2018-02-06] MEDS: CHOLECALCIFEROL (VITAMIN D3) 1,000 UNIT TABLET (FP) PO SCH (12:00)
[2018-02-06] MEDS ORDERED: NICOTINE 21 MG/24 HOURS TOPICAL PATCH TD SCH (13:45)
[2018-02-06 14:25] LABS: HEP.C VIRUS AB <0.1 s/co ratio (0.0-0.9)
--- NOTE | 2018-02-06 14:37 | DS ---
Physical Exam: SUBJECTIVE: Patient seen and examined at dialysis. Feels well, not short of breath. Wants to go home today, refusing to stay. OBJECTIVE: hypertensive today but not yet given his morning cardiac medications cardiac meds given after dialysis, added hydralazine 25mg to his regimen, with improvement Also made patient an appointment to have his blood pressure rechecked with his PCP (Dr Cortez) on February 10 3pm Patient informed and agrees to follow up. BP on d/c 180/[address] Roddy Yang. Vital Signs Period Temp Pulse Resp BP Sys/Montes Pulse Ox Last 24 Hr 97.7 F-98.6 F 62-82 18-20 148-209/72-111 97 PHYSICAL EXAM GENERAL: The patient is awake, alert, and fully oriented, in no acute distress. HEAD: Normal with no signs of trauma. EYES: PERRL, extraocular movements intact, sclera anicteric, conjunctiva clear. ENT: Ears normal, nares patent, oropharynx clear without exudates, moist mucous membranes. NECK: Trachea midline, full range of motion, supple. LUNGS: Breath sounds diminished bilaterally HEART: Regular rate and rhythm ABDOMEN: Soft, nontender, nondistended, normoactive bowel sounds, no guarding, no rebound, no hepatosplenomegaly, no masses. EXTREMITIES: 2+ pulses, warm, well-perfused, no edema. NEUROLOGICAL: Normal speech, steady gait PSYCH: Normal mood, normal affect. SKIN: Warm, dry, normal turgor, no rashes or lesions noted. LABS Laboratory Results - last 24 hr 02/04/18 02/04/18 02/05/18 11:35 21:00 18:10 WBC RBC Hgb Hct MCV MCH MCHC RDW Plt Count MPV Neutrophils % Lymphocytes % Monocytes % Eosinophils % Basophils % Hypochromia Platelet Estimate Polychromasia Anisocytosis Microcytosis Ovalocytes PTT (Actin FS) Sodium Potassium Chloride Carbon Dioxide Anion Gap BUN Creatinine Creat Clearance w eGFR POC Glucometer 190 Random Glucose Calcium Phosphorus Magnesium Total Bilirubin AST ALT Alkaline Phosphatase Total Protein Albumin Hepatitis A IgM Ab Negative Hep Bs Antigen Negative Hep B Core IgM Ab Negative Hepatitis C Antibody <0.1 Blood Type O POSITIVE Antibody Screen Negative Crossmatch See Detail 02/05/18 02/06/18 02/06/18 21:43 05:53 06:25 WBC RBC Hgb Hct MCV MCH MCHC RDW Plt Count MPV Neutrophils % Lymphocytes % Monocytes % Eosinophils % Basophils % Hypochromia Platelet Estimate Polychromasia Anisocytosis Microcytosis Ovalocytes PTT (Actin FS) 30.6 Sodium Potassium Chloride Carbon Dioxide Anion Gap BUN Creatinine Creat Clearance w eGFR POC Glucometer 170 155 Random Glucose Calcium Phosphorus Magnesium Total Bilirubin AST ALT Alkaline Phosphatase Total Protein Albumin Hepatitis A IgM Ab Hep Bs Antigen Hep B Core IgM Ab Hepatitis C Antibody Blood Type Antibody Screen Crossmatch 02/06/18 02/06/18 02/06/18 06:25 06:25 06:25 WBC 5.8 RBC 2.41 L Hgb 7.6 L Hct 22.4 L MCV 93.0 MCH 31.5 MCHC 33.8 RDW 21.8 H Plt Count 160 MPV 7.6 Neutrophils % 63.7 Lymphocytes % 22.6 D Monocytes % 12.2 H Eosinophils % 0.9 Basophils % 0.6 Hypochromia 2+ Platelet Estimate Decreased Polychromasia 2+ Anisocytosis 2+ Microcytosis 2+ Ovalocytes 2+ PTT (Actin FS) Sodium 141 Potassium 4.9 Chloride 109 H Carbon Dioxide 24 D Anion Gap 8 BUN 60 H Creatinine 9.8 H* Creat Clearance w eGFR 5.38 POC Glucometer Random Glucose 103 D Calcium 8.1 L Phosphorus 4.3 Cancelled Magnesium 1.8 Total Bilirubin 0.1 L AST 19 ALT 15 Alkaline Phosphatase 91 Total Protein 5.9 L Albumin 2.3 L Hepatitis A IgM Ab Hep Bs Antigen Hep B Core IgM Ab Hepatitis C Antibody Blood Type Antibody Screen Crossmatch HOSPITAL COURSE: Date of Admission:02/04/18 Date of Discharge: 02/06/18 ASSESSMENT/PLAN: Patient is a 67 year old male with a significant past medical history of hypertension, hyperlipidemia, NIDDM, ESRD, HIV+ (on HAART), anemia, throat cancer. Patient has had an AV fistula placed earlier this month for anticipated hemodialysis. Patient comes to the ED on 02/04/2018 with shortness of breath. The patient was admitted on 01/21/18 and signed out AMA and now returns with worsening shortness of breath. He states that at home breathing became labored and laying flat became difficult. 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 Pulm: Shortness of breath, resolved with dialysis, had a total of 5 liters removed with dialysis during hospitalization Does not qualify for home oxygen Seen by pulmonary, low suspicion for PE Follow up with PCP and pulmonary outpatient Levaquin 250mg every other day for a total of 7 doses for moderate pleural effusion Toresemide 40mg daily Hemoptosys, resolved Heparin drip discontinued Card: Hypertensive Urgency, improved On Procardia 90mg daily, Sotalol 50mg daily and Hydrazaline 25mg daily ( hydralazine added today) Trops negative Monitor BP during dialysis and outpatient follow up BP on d/c 180/87 Acute on chronic diastolic heart failure On Toresemide 40mg daily Hyperlipidemia, chronic Endocrine: Diabetes, chronic Continue home medications Renal: ESRD, dialysis today via left arm fistula, next dialysis at outpatient center ID: HIV +, chronic on HAART meds UTI, stop Ceftriaxone, UC negative Heme: Anemia, chronic Received 1 unit of prbc during dialysis today Onc: Throat cancer, chronic s/p treatment, pt has appt to see his oncologist Discharge today with PCP followup: (Dr Cortez) on February 10 3pm ( appt made for pt prior to d/c) Minutes to complete discharge: 60 Discharge Summary Reason For Visit: SHORTNESS OF BREATH Current Active Problems End stage renal disease (Acute) Hemoptysis (Acute) Hypertensive urgency (Acute) Shortness of breath (Acute) Condition: Improved - Instructions Diet, Activity, Other Instructions: Mr. Galarza: Your new Dialysis center is [facility] and your appointment is scheduled for 02/09 at 2:30pm. Your next appointment will be on 02/12. You will be put on a Friday, , Friday appointment schedule. Please call us with any questions that you may have. Referrals: Albert Cruz MD [Staff Physician] - Samira Rolle MD [Primary Care Provider] - (appointment made for you to see your physician for follow up on February 10 3pm. ) Trey Pereyra MD [Staff Physician] - Mukul Ruby MD [Staff Physician] - 1 Week Disposition: HOME - Home Medications Comprehensive Discharge Medication List: Ambulatory Orders Abacavir Sulfate [Abacavir] 300 mg PO DAILY 02/04/18 Amlodipine Besylate 10 mg PO DAILY 02/04/18 Atenolol [Tenormin -] 25 mg PO DAILY 02/04/18 Cholecalciferol (Vitamin D3) [Vitamin D3] 1,000 unit PO DAILY 02/04/18 Citalopram Hydrobromide [Citalopram HBr] 20 mg PO DAILY 02/04/18 Dolutegravir Sodium [Tivicay] 50 mg PO DAILY 02/04/18 Ferrous Sulfate 325 mg PO BID 02/04/18 Glipizide [Glipizide ER] 0 mg PO BID 02/04/18 Lamivudine [Epivir Hbv] 100 mg PO DAILY 02/04/18 Pravastatin Sodium [Pravachol] 40 mg PO DAILY 02/04/18 Sodium Fluoride/Potassium Nit [Prevident 5000 Enamel Protect] 100 ml DT BID Tamsulosin HCl [Flomax] 0.4 mg PO DAILY 02/04/18 Zolpidem Tartrate [Ambien] 5 mg PO HS MDD mmd1 02/04/18 This patient is new to me today: No Emergency Visit: Yes ED Registration Date: 02/04/18 Care time: The patient presented to the Emergency Department on the above date and was hospitalized for further evaluation of their emergent condition. Critical Care patient: No - Discharge Referral Referred to [facility] No
[2018-02-06] MEDS ORDERED: hydrALAZINE HCL 25 MG TABLET (FP) PO ONE (14:59)
--- NOTE | 2018-02-06 16:51 | PN ---
Progress Note (short form) - Note Progress Note: Renal follow up for CKD stage 5 with volume overload Pt seen and examined during dialysis no acute complaints sob is improved no hemoptysis Vital Signs Temperature 98.2 F 02/06/18 05:51 Pulse Rate 84 02/06/18 14:50 Respiratory Rate 18 02/06/18 13:20 Blood Pressure 196/97 02/06/18 13:20 O2 Sat by Pulse Oximetry (%) 94 L 02/06/18 14:50 Intake & Output 02/03/18 02/04/18 02/05/18 02/06/18 23:59 23:59 23:59 23:59 Intake Total 240 1270 200 Output Total 500 2100 800 Balance -260 -830 -600 Weight 81.647 kg 82.826 kg 81.102 kg uncomfortable Neck supple, no JVD MMM RRR Dec Bs b/l lung allred, no overt rales soft NT/ND Trace LE edema, no clubbing or cyanosis Left arm AVG in place + thrill CBC, BMP 02/06/18 06:25 02/06/18 06:25 Current Medications Abacavir Sulfate (Ziagen -) 300 mg PO DAILY [facility] Last Admin: 02/06/18 12:00 Dose: Not Given Atenolol (Tenormin -) 50 mg PO DAILY [facility] Last Admin: 02/06/18 11:59 Dose: Not Given Atorvastatin Calcium (Lipitor -) 10 mg PO DAILY [facility] Last Admin: 02/06/18 11:59 Dose: Not Given Cholecalciferol (Vitamin D3 -) 1,000 unit PO DAILY [facility] Last Admin: 02/06/18 12:00 Dose: Not Given Citalopram Hydrobromide (Celexa -) 20 mg PO DAILY [facility] Last Admin: 02/06/18 11:59 Dose: Not Given Ferrous Sulfate (Feosol -) 325 mg PO BID [facility] Last Admin: 02/06/18 11:59 Dose: Not Given Guaifenesin (Robitussin -) 10 ml PO Q6H PRN PRN Reason: COUGH Ceftriaxone Sodium 1 gm/ (Dextrose) 50 mls @ 100 mls/hr IVPB DAILY [facility] Last Admin: 02/06/18 11:59 Dose: Not Given Sodium Chloride (Normal Saline -) 250 mls @ 3,000 mls/hr IV PRN PRN PRN Reason: Hypotension during Dialysis Stop: 02/06/18 18:49 Insulin Aspart (Novolog Vial Sliding Scale -) 1 vial SQ ACHS [facility] PRN Reason: Protocol Last Admin: 02/06/18 12:00 Dose: Not Given Lamivudine (Epivir Oral Solution -) 100 mg PO DAILY [facility] Last Admin: 02/06/18 11:59 Dose: Not Given Nicotine (Nicoderm Patch -) 21 mg TD DAILY [facility] Nifedipine (Procardia Xl -) 90 mg PO DAILY@0900 [facility] Last Admin: 02/06/18 11:59 Dose: Not Given Torsemide (Demadex -) 40 mg PO DAILY [facility] 67 year odl gentleman with PMhx of 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 , hypertension, HIV, Chronic Anemia, Current smoker, Hx of laryngeal Ca who presented with SOB and admitted for fluid overload #CHF/Fluid overload #CKD Stage 4 #Uncontrolled hypertension #Metabolic acidosis #Chronic Anemia tolerating dialysis via AVG uf as tolerated continue nifedipine, torsemide, atenolol to start out patient dialysis next week stable for discharge Thank you Trey Pereyra DO
[2018-02-06 18:21] VITALS: TEMP 98.3
[2018-02-06 18:22] VITALS: BP 168/88; PULSE 80
[2018-02-07] MEDS ORDERED: TORSEMIDE 20 MG TABLET (FP) PO SCH (10:00)
== END 2018-02-06 16:51 | disposition home or self-care (01) | DRG 291 ==
LOC: JER 10:55 → JERBED 14:35 → J4W 17:30
PROVIDERS: ADMIT Internal Medicine; ATTEND Nurse Practitioner Family
PROC: 5A1D70Z Performance of Urinary Filtration, Intermittent, Less than 6 Hours Per Day (ICD-10-PCS; principal; 2018-02-05)
PROC: 5A1D70Z Performance of Urinary Filtration, Intermittent, Less than 6 Hours Per Day (ICD-10-PCS; 2018-02-06)
PROC: 30233H1 Transfusion of Nonautologous Whole Blood into Peripheral Vein, Percutaneous Approach (ICD-10-PCS; 2018-02-06)
DX: I13.0 Hypertensive heart and chronic kidney disease with heart failure and stage 1 through stage 4 chronic kidney disease, or unspecified chronic kidney disease (principal); I50.33 Acute on chronic diastolic (congestive) heart failure; N18.6 End stage renal disease; R04.2 Hemoptysis; E87.2 Acidosis; I16.0 Hypertensive urgency; E87.70 Fluid overload, unspecified; Z21 Asymptomatic human immunodeficiency virus [HIV] infection status; E11.22 Type 2 diabetes mellitus with diabetic chronic kidney disease; E11.319 Type 2 diabetes mellitus with unspecified diabetic retinopathy without macular edema; E11.21 Type 2 diabetes mellitus with diabetic nephropathy; Z79.84 Long term (current) use of oral hypoglycemic drugs; I34.0 Nonrheumatic mitral (valve) insufficiency; E78.5 Hyperlipidemia, unspecified; F17.210 Nicotine dependence, cigarettes, uncomplicated; Z85.21 Personal history of malignant neoplasm of larynx; D50.9 Iron deficiency anemia, unspecified; F32.9 Major depressive disorder, single episode, unspecified; Z99.2 Dependence on renal dialysis
CPT/HCPCS: 36415; 36430; 71045-TC-FY; 71250-TC; 80053; 80074; 81003; 81015; 82550; 82553; 82803; 82962; 83735; 83880; 84100; 84484; 85025; 85379; 85610; 85730; 86850; 86900; 86901; 86922; 87086; 93005; 93010; 93306-TC; 93970-TC; 94761; 99284-25; J0885; J1644; P9038; P9058

== ENCOUNTER 2018-02-09 09:38 | Inpatient (IN) | payer OTHER ==
--- NOTE | 2018-02-09 09:47 | PDOC ---
History of Present Illness - General Chief Complaint: Shortness of Breath Stated Complaint: SOB Time Seen by Provider: 02/09/18 09:39 - History of Present Illness Initial Comments: 02/09/18 10:01 The patient is a 67 year old male with a history of anemia(transfusions x3 since August 2017), laryngeal/throat cancer (s/p radiation therapy March 2017) , ESRD(s/p left arm fistula), HIV(on HAART), hypertension, and hyperlipidemia who presents for evaluation of shortness of breath. The patient reports that he was recently admitted 1 week ago for similar symptoms were he received inpatient dialysis. He notes that over the past few days after discharge, he has been experiencing worsening SOB associated with a productive cough. He states that he was suppose to receive his first outpatient dialysis today, but was unable to make it due to his symptoms. He received 2 combivent treatments and 10mg of decadron en rout to the ED with improvement in his symptoms. He otherwise denies fevers, chills, chest pain, nausea, vomiting, abdominal pain, leg swelling, or changes with urination or bowel movements. Past History - Past Medical History Allergies/Adverse Reactions: Allergies Allergy/AdvReac Type Severity Reaction Status Date / Time No Known Drug Allergies Allergy Verified 02/09/18 09:39 Home Medications: Ambulatory Orders Abacavir Sulfate [Abacavir] 300 mg PO DAILY 02/04/18 Cholecalciferol (Vitamin D3) [Vitamin D3] 1,000 unit PO DAILY 02/04/18 Citalopram Hydrobromide [Citalopram HBr] 20 mg PO DAILY 02/04/18 Dolutegravir Sodium [Tivicay] 50 mg PO DAILY 02/04/18 Glipizide [Glipizide ER] 0 mg PO BID 02/04/18 Lamivudine [Epivir Hbv] 100 mg PO DAILY 02/04/18 Pravastatin Sodium [Pravachol] 40 mg PO DAILY 02/04/18 Sodium Fluoride/Potassium Nit [Prevident 5000 Enamel Protect] 100 ml DT BID Tamsulosin HCl [Flomax -] 0.4 mg PO DAILY 02/04/18 Zolpidem Tartrate [Ambien] 5 mg PO HS MDD mmd1 02/04/18 Atenolol [Tenormin -] 50 mg PO DAILY #30 tablet 02/06/18 Ferrous Sulfate [Feosol] 325 mg PO BID #60 tab 02/06/18 Hydralazine HCl 25 mg PO DAILY 30 Days #30 tablet 02/06/18 Nicotine Patch [Nicoderm Patch -] 21 mg TD DAILY #30 patch 02/06/18 Nifedipine ER [Procardia XL -] 90 mg PO DAILY@0900 #60 tab.er.24 02/06/18 Torsemide [Demadex -] 40 mg PO DAILY #60 tablet 02/06/18 Anemia: Yes (IRON DEFICIENCY.) Asthma: Yes Cancer: Yes (laryngeal / throat) Cardiac Disorders: Yes (ANGINA.) CVA: No COPD: No CHF: No DVT: No Dementia: No Diabetes: Yes Dialysis: Yes (esrd, lt arm fistula) GI Disorders: No Disorders: Yes HTN: Yes Hypercholesterolemia: Yes Liver Disease: No Psychiatric Problems: Yes (DEPRESSION.) Seizures: No Thyroid Disease: Yes - Surgical History Abdominal Surgery: Yes (bilaterl inguinal hernia repair and undescend testis left) Appendectomy: No Cardiac Surgery: No Cholecystectomy: No Lung Surgery: No Neurologic Surgery: No Orthopedic Surgery: No - Reproductive History Testicular Surgery: No - Immunization History Immunization Up to Date: Yes - Suicide/Smoking/Psychosocial Hx Smoking History: Current every day smoker Have you smoked in the past 12 months: Yes Number of Cigarettes Smoked Daily: 10 Cigars Per Day: 0 Information on smoking cessation initiated: No 'Breaking Loose' booklet given: 01/09/18 Hx Alcohol Use: No Drug/Substance Use Hx: No Substance Use Type: None Hx Substance Use Treatment: Yes Review of Systems - Review of Systems Comments:: 02/09/18 10:12 Constitutional: No fevers, chills, fatigue, malaise HEENT: No Rhinorrhea, nasal congestion, visual changes Cardiovascular: No chest pain, syncope, palpitations, lightheadedness Respiratory: SOB, Cough. No Hemoptysis, Gastrointestinal: No Abdominal pain, Nausea, Vomiting, Constipation, Diarrhea, Melena Genitourinary: No Dysuria, Frequency, Urgency, Hesitancy, Hematuria, Flank pain Musculoskeletal: No Myalgia, arthralgia Skin: No rashes, itching, bruising, pallor Neurologic: No Headache, Dizziness, Numbness, Weakness, or Tingling Psychiatric: No Hallucinations. No SI or HI *Physical Exam - Vital Signs Last Vital Signs Temp Pulse Resp BP Pulse Ox 97.4 F L 80 24 171/97 99 02/09/18 09:39 02/09/18 09:39 02/09/18 09:39 02/09/18 09:39 02/09/18 09:39 - Physical Exam Comments: 02/09/18 10:13 General Appearance: Nourished. No Apparent Distress HEENT: EOMI, VASYL. Dry Mucus Membranes. No Pharyngeal Erythema, Tonsillar Exudate, Tonsillar Erythema Neck: No Cervical Lymphadenopathy Respiratory/Chest: Diffuse expiratory wheezing and rhonchi noted on auscultation. No Crackles, Rales, Cardiovascular: Regular Rhythm, Regular Rate. No Murmur, Gallops, Rubs Gastrointestinal/Abdominal: Normal Bowel Sounds, Soft. No Guarding, Rebound, Tenderness Musculoskeletal: No CVA Tenderness Extremity: Normal Capillary Refill Integumentary: Normal Color, Dry, Warm Neurologic: Fully Oriented, Alert, Normal Mood/Affect, Normal Response, Heart Score/ECG Review #1 ECG reviewed & interpreted by me at: 10:14 General ECG Interpretation: Sinus Rhythm, Normal Rate, Normal Intervals, No acute ischemic changes ED Treatment Course - LABORATORY CBC & Chemistry Diagram: 02/09/18 10:12 02/09/18 10:12 - RADIOLOGY Radiology Studies Ordered: Category Date Time Status CHEST X-RAY PORTABLE* [RAD] Stat Radiology 02/09/18 09:45 Ordered Medical Decision Making - Medical Decision Making 02/09/18 10:14 The patient is a 67 year old male with a history of anemia(transfusions x3 since August 2017), laryngeal/throat cancer (s/p radiation therapy March 2017) , ESRD(s/p left arm fistula), HIV(on HAART), hypertension, and hyperlipidemia who presents for evaluation of shortness of breath. Differential includes but is not limited to: ACS, COPD Exacerbation, CHF, Fluid Overload, Pneumonia, infectious, metabolic derangement. Given the patient's physical exam of wheezing and history, it is likely the patient's symptoms are due to a COPD exacerbation. However we will obtain a cbc, cmp, troponin, bnp, vbg, blood cultures, ekg, chest plain film to evaluate further for possible etiologies. We will continue to monitor and reassess in the meantime. 02/09/18 182:16 CBC, cmp, troponin are unremarkable BNP is elevated. Chest plain film demonstrates pulmonary congestion as preliminarily read by ER physician. The patient's results are consistent with fluid overload and a copd exacerbation. We discussed the case with the hospitalist team who accepted the patient for admission. We discussed the case with Dr. Pereyra with nephrology who will arrange for dialysis today. *DC/Admit/Observation/Transfer Diagnosis at time of Disposition: Shortness of breath, COPD exacerbation Chronic kidney disease Qualifiers: Chronic kidney disease stage: unspecified stage Qualified Code(s): N18.9 - Chronic kidney disease, unspecified Fluid overload Qualifiers: Hypervolemia type: unspecified Qualified Code(s): E87.70 - Fluid overload, unspecified - Discharge Dispostion Condition at time of disposition: Stable Admit: Yes - Referrals - Patient Instructions - Post Discharge Activity
--- NOTE | 2018-02-09 10:07 | PDOC ---
Attending Attestation - Resident Resident Name: Greg Jimenes - ED Attending Attestation I have performed the following: I have examined & evaluated the patient, The case was reviewed & discussed with the resident, I agree w/resident's findings & plan, Exceptions are as noted - HPI HPI: 02/09/18 10:28 Mr Galarza is a 67 yo M h/o anemia (transfusions x3 since August 2017), laryngeal/throat cancer (s/p radiation therapy March 2017), ESRD(s/p left arm fistula), HIV(on HAART), hypertension, and hyperlipidemia who presents for evaluation of shortness of breath. Today was his first day of outpatient dialysis Unfortunately, he has been increasingly lightheaded over the past week Notes productive cough He received 2 combivent treatments and 10mg of decadron en rout to the ED with improvement in his symptoms. no fevers or chills No chest pain - Physicial Exam PE: 02/09/18 10:36 on examination: RRR Expiratory wheezing through out No abd tenderness No lower extremity edema - Medical Decision Making 02/09/18 10:36 Pt presents to the ER due to shortness of breath en route to HD DD: COPD exacerbation vs. Fluid overloading vs. pneumonia Will do: Labs CXR Re assess Pt was already give nebs, decadron will add Azithromycin Contact renal for dialysis today
[2018-02-09 10:21] LABS: BASO % 0.3 % (0-2.0); EOS % 0.3 % (0-4.5); HEMATOCRIT 26.5 % (35.4-49); HEMOGLOBIN 8.7 GM/dL (11.7-16.9); MCH 31.2 pg (25.7-33.7); MCHC 32.8 g/dl (32.0-35.9); MEAN PLT VOLUME 8.4 fl (7.5-11.1); MONO % 6.9 % (3.8-10.2); NEUT % 83.5 % (42.8-82.8); PLATELET COUNT 173 K/MM3 (134-434); RBC 2.79 M/mm3 (4.00-5.60); RDW 21.8 % (11.9-15.9); WHITE BLOOD COUNT 7.3 K/mm3 (4.0-10.0)
[2018-02-09 10:26] LABS: VENOUS PH 7.27 (7.32-7.42)
[2018-02-09 10:27] LABS: VENOUS PC02 56.9 mmHg (38-52); VENOUS PO2 20.2 mmHg (28-48)
[2018-02-09 10:47] LABS: ALBUMIN 2.7 g/dl (3.4-5.0); ANION GAP 9 (8-16); BLOOD UREA NITROGEN 70 mg/dL (7-18); CALCIUM 7.8 mg/dL (8.5-10.1); CHLORIDE 110 mmol/L (98-107); CO2 25 mmol/L (21-32); GLUCOSE,RANDOM 67 mg/dL (74-106); POTASSIUM 5.1 mmol/L (3.5-5.1); SGOT/AST 180 U/L (15-37); SGPT/ALT 95 U/L (12-78); SODIUM 144 mmol/L (136-145)
[2018-02-09 10:54] LABS: ALK PHOS 204 U/L (45-117); BILIRUBIN,TOTAL 0.2 mg/dL (0.2-1.0); N-TERMINAL BNP 11998.73 pg/ml (5-125); TOT PROT 6.7 g/dl (6.4-8.2)
[2018-02-09 10:56] LABS: CREATININE 10.5 mg/dL (0.7-1.3)
--- NOTE | 2018-02-09 12:21 | EKG ---
Test Reason : Blood Pressure : / mmHG Vent. Rate : 081 BPM Atrial Rate : 081 BPM P-R Int : 142 ms QRS Dur : 086 ms QT Int : 348 ms P-R-T Axes : 040 049 059 degrees QTc Int : 404 ms POOR DATA QUALITY, INTERPRETATION MAY BE ADVERSELY AFFECTED NORMAL SINUS RHYTHM POSSIBLE LEFT ATRIAL ENLARGEMENT LEFT VENTRICULAR HYPERTROPHY ABNORMAL ECG WHEN COMPARED WITH ECG OF 04-FEB-2018 11:23, QT HAS SHORTENED Confirmed by AVERY BETH, LYDIA ([id number]) on 02/09/2018 12:21:33 PM Referred By: Confirmed By:LYDIA VARELA MD
[2018-02-09] MEDS ORDERED: LAMIVUDINE 100 MG PO SCH (12:45)
[2018-02-09] MEDS ORDERED: ATENOLOL 50 MG TABLET (FP) PO SCH (12:45)
[2018-02-09] MEDS ORDERED: hydrALAZINE HCL 50 MG TABLET (FP) PO SCH ×2 (12:45→22:00)
[2018-02-09] MEDS ORDERED: SODIUM CHLORIDE 250 ML IV PRN ×2 (13:07→13:14)
[2018-02-09] MEDS ORDERED: HEPARIN NA (PORCINE) 5,000 UNITS/ML 1ML VIAL IVPUSH SCH (13:07)
[2018-02-09] MEDS ORDERED: EPOETIN ALFA 10,000 UNIT/1 ML VIAL IVPUSH SCH (13:07)
[2018-02-09] MEDS ORDERED: ATENOLOL 25 MG TABLET (FP) ONE (13:11)
[2018-02-09] MEDS ORDERED: hydrALAZINE HCL 25 MG TABLET (FP) ONE (13:11)
--- NOTE | 2018-02-09 13:21 | HP ---
CHIEF COMPLAINT: shortness of breath PCP: HISTORY OF PRESENT ILLNESS: Patient is a 67 year old male with a significant past medical history of hypertension, hyperlipidemia, NIDDM, ESRD, HIV+ (on HAART), anemia, and throat cancer. Patient has had an AV fistula placed earlier this month for dialysis. Has received his first dialysis on his last admission which was 1 week ago and was supposed to get dialysis again today at his new outpatient center, but came to [place] when he was feeling short of breath and weak. He denies chest pain. Patient seen at dialysis, he still is having shortness of breath. Started on Medrol by pulmonary. His blood pressure is still between 190/100 and 200/100, will give Hydralizine 10mg push in dialysis and start on coreq 6.25mg (discussed this with cardiology) . Will increase Hydralazine to BID. ER course was notable for: (1) hmg/hct 8.7/26.5 (2) creat 10.5 (3) Hypertensive urgency (4) Repiratory failure, ABGs Recent Travel: PAST MEDICAL HISTORY: PAST SURGICAL HISTORY: Social History: Smoking: denies Alcohol: denies Drugs: denies Family History: Allergies No Known Drug Allergies Allergy (Verified 02/09/18 09:39) HOME MEDICATIONS: Home Medications Medication Instructions Recorded Abacavir Sulfate [Abacavir] 300 mg PO DAILY 02/04/18 Cholecalciferol (Vitamin D3) 1,000 unit PO DAILY 02/04/18 [Vitamin D3] Citalopram Hydrobromide 20 mg PO DAILY 02/04/18 [Citalopram HBr] Dolutegravir Sodium [Tivicay] 50 mg PO DAILY 02/04/18 Glipizide [Glipizide ER] 0 mg PO BID 02/04/18 Lamivudine [Epivir Hbv] 100 mg PO DAILY 02/04/18 Pravastatin Sodium [Pravachol] 40 mg PO DAILY 02/04/18 Sodium Fluoride/Potassium Nit 100 ml DT BID 02/04/18 [Prevident 5000 Enamel Protect] Tamsulosin HCl [Flomax -] 0.4 mg PO DAILY 02/04/18 Zolpidem Tartrate [Ambien] 5 mg PO HS MDD mmd1 02/04/18 Atenolol [Tenormin -] 50 mg PO DAILY #30 tablet 04/20/18 Ferrous Sulfate [Feosol] 325 mg PO BID #60 tab 02/06/18 Hydralazine HCl 25 mg PO DAILY 30 Days #30 tablet 02/06/18 Nicotine Patch [Nicoderm Patch -] 21 mg TD DAILY #30 patch 02/06/18 Nifedipine ER [Procardia XL -] 90 mg PO DAILY@0900 #60 tab.er.24 02/06/18 Torsemide [Demadex -] 40 mg PO DAILY #60 tablet 02/06/18 PHYSICAL EXAMINATION Vital Signs - 24 hr 02/09/18 02/09/18 02/09/18 09:39 10:13 12:05 Temperature 97.4 F L 98.6 F Pulse Rate 80 89 Pulse Rate [ 77 Left Apical] Respiratory 24 16 Rate Blood Pressure 171/97 Blood Pressure 194/97 [Left Arm] O2 Sat by Pulse 99 96 97 Oximetry (%) GENERAL: Awake, alert, in respiratory distress, 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 EYES: Pupils equal, round and reactive to light, extraocular movements intact, sclera anicteric, conjunctiva clear. No lid lag. EARS, NOSE, THROAT: Ears normal, nares patent, oropharynx clear without exudates. Moist mucous membranes. NECK: Normal range of motion, supple without lymphadenopathy, JVD, or masses. LUNGS: labored breathing on admission, now on venti mask, wheezing throughout lung allred HEART: Regular rate and rhythm, normal S1 and S2 without murmur, rub or gallop. SKIN: Warm, dry, normal turgor, no rashes or lesions noted, normal capillary refill. Laboratory Results - last 24 hr 02/09/18 02/09/18 02/09/18 10:12 10:12 10:12 WBC 7.3 RBC 2.79 L Hgb 8.7 L D Hct 26.5 L D MCV 95.0 MCH 31.2 MCHC 32.8 RDW 21.8 H Plt Count 173 MPV 8.4 D Neutrophils % 83.5 H D Lymphocytes % 9.0 D Monocytes % 6.9 Eosinophils % 0.3 Basophils % 0.3 VBG pH 7.27 L POC VBG pCO2 56.9 H D POC VBG pO2 20.2 L Mixed VBG HCO3 25.5 H Sodium 144 Potassium 5.1 Chloride 110 H Carbon Dioxide 25 Anion Gap 9 BUN 70 H Creatinine 10.5 H* Creat Clearance w eGFR 4.97 Random Glucose 67 L D Calcium 7.8 L Total Bilirubin 0.2 D AST 180 H D ALT 95 H D Alkaline Phosphatase 204 H D Creatine Kinase 242 Creatine Kinase Index 0.7 CK-MB (CK-2) 1.771 Troponin I 0.02 D B-Natriuretic Peptide 85775.73 H Total Protein 6.7 Albumin 2.7 L ASSESSMENT/PLAN: Patient is a 67 year old male with a significant past medical history of hypertension, hyperlipidemia, NIDDM, ESRD, HIV+ (on HAART), anemia, and throat cancer. Patient has had an AV fistula placed earlier this month for dialysis. Has received his first dialysis on his last admission which was 1 week ago and was supposed to get dialysis again today at his new outpatient center, but came to [place] when he was feeling short of breath and weak. He denies chest pain. Patient seen at dialysis, he still is having shortness of breath. Started on Medrol by pulmonary. His blood pressure is still between 190/100 and 200/100, will give Hydralizine 10mg push in dialysis and start on coreq 6.25mg (discussed this with cardiology) . Will increase Hydralazine to BID. 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 chest xray 02/09: bilateral consolidations Pulm: Shortness of breath, acute Fluid overload Acute respiratory failure/hypercapneic respiratory failure Consolidations seen on xray CT chest on last admission Dialysis now with goal removal of [address] a venti mask @ 50% - 15 liters Started on Medrol by pulmonary Toresemide 40mg daily On Azithromycin, Ceftriaxone per ID Hemoptosys, on last admission, heparin stopped, therefore will not anticoagulate with heparin Card: Hypertensive Urgency, acute On Procardia 90mg daily, Sotalol 50mg daily and Hydrazaline 25mg daily Given Hydralazine 10mg push now, coreq 6.25mg added BID, sotalol d/cd Trop negative on admission, trend Monitor BP Acute on chronic diastolic heart failure On Toresemide 40mg daily Daily weight Hyperlipidemia, chronic Endocrine: Diabetes, chronic Novolog SS Renal: ESRD, dialysis today via left arm fistula, for volume overload ID: HIV +, chronic on HAART meds ID following Heme: Anemia, chronic Onc: Throat cancer, chronic s/p treatment, pt has appt to see his oncologist Elvira Fluids: none Electrolytes: monitor Nutrition: renal diet Disposition: full code Visit type - Emergency Visit Emergency Visit: Yes ED Registration Date: 02/09/18 Care time: The patient presented to the Emergency Department on the above date and was hospitalized for further evaluation of their emergent condition. - New Patient This patient is new to me today: No - Critical Care Critical Care patient: No Hospitalist Screening - Colonoscopy Questionnaire Colonoscopy Questionnaire: Colonoscopy Questionnaire
--- NOTE | 2018-02-09 15:26 | PN ---
Progress Note (short form) - Note Progress Note: PULMONARY CONSULTATION DICTATED 02/09/18 IMP ACUTE HYPOXEMIC/HYPERCAPNEIC RESPIRATORY FAILURE CHF/FLUID OVERLOAD COPD ? PNEUMONIA HIV ON HAART H/O LARYNGEAL/THROAT CA S/P RT HTN ESRD ON HD PLAN HD PER RENAL O2 NIPPV NEEDED F/U ABGS F/U CHEST X-RAYS ABX PER RAYO MARK Problem List - Problems (1) ESRD (end stage renal disease) Code(s): N18.6 - END STAGE RENAL DISEASE (2) COPD exacerbation Code(s): J44.1 - CHRONIC OBSTRUCTIVE PULMONARY DISEASE W (ACUTE) EXACERBATION (3) Fluid overload Code(s): E87.70 - FLUID OVERLOAD, UNSPECIFIED Qualifiers: Hypervolemia type: unspecified Qualified Code(s): E87.70 - Fluid overload, unspecified (4) Shortness of breath Code(s): R06.02 - SHORTNESS OF BREATH (5) Chronic kidney disease Code(s): N18.9 - CHRONIC KIDNEY DISEASE, UNSPECIFIED Qualifiers: Chronic kidney disease stage: unspecified stage Qualified Code(s): N18.9 - Chronic kidney disease, unspecified (6) Anemia, chronic disease Code(s): D63.8 - ANEMIA IN OTHER CHRONIC DISEASES CLASSIFIED ELSEWHERE (7) Hypertension Code(s): I10 - ESSENTIAL (PRIMARY) HYPERTENSION (8) Renal failure Code(s): N19 - UNSPECIFIED KIDNEY FAILURE (9) Throat cancer Code(s): C14.0 - MALIGNANT NEOPLASM OF PHARYNX, UNSPECIFIED (10) HIV (human immunodeficiency virus infection) Code(s): Z21 - ASYMPTOMATIC HUMAN IMMUNODEFICIENCY VIRUS INFECTION STATUS (11) Acute respiratory failure with hypoxia and hypercapnia Code(s): J96.01 - ACUTE RESPIRATORY FAILURE WITH HYPOXIA; J96.02 - ACUTE RESPIRATORY FAILURE WITH HYPERCAPNIA
--- NOTE | 2018-02-09 15:50 | PN ---
Progress Note (short form) - Note Progress Note: ID Consult dictated Bilbasilar consolidations ESRD HIV + Pending c/s empiric ceftriaxone/ zithromax ART
[2018-02-09] MEDS ORDERED: hydrALAZINE HCL 20 MG/ML VIAL IVPUSH ONE (15:58)
[2018-02-09] MEDS ORDERED: LORazepam 1 MG TABLET PO ONE (16:01)
[2018-02-09] MEDS: NICOTINE 21 MG/24 HOURS TOPICAL PATCH TD SCH (16:25)
[2018-02-09] MEDS: CARVEDILOL 6.25 MG TABLET (FP) PO SCH ×2 (16:25→21:00)
[2018-02-09] MEDS: AZITHROMYCIN IVPB 500 MG in DEXTROSE 5%-WATER - 250 ML IVPB SCH ×3 (16:49→21:35)
--- NOTE | 2018-02-09 16:59 | CONS ---
INFECTIOUS DISEASE CONSULTATION DATE OF CONSULTATION: DATE OF DICTATION: 02/09/2018 HISTORY OF PRESENT ILLNESS: The patient is a 67-year-old male with a history of end-stage renal disease on hemodialysis, HIV positive, history of laryngeal cancer evaluated for bibasilar pneumonia. The patient was recently hospitalized at [facility] for shortness of breath. He had been treated for pneumonia and volume overload; however, signed out against medical advice. Since his discharge he has become increasingly short of breath with cough productive of greenish sputum, at times blood-streaked. A CAT scan which was performed several days ago showed bilateral pleural effusions as well as bilateral basilar consolidations. He is awake. He is short of breath at rest. He is receiving hemodialysis. The patient is hypophonic and has a raspy voice. He is in no acute respiratory distress. He denies any recent fever or chills. The patient has a history of HIV. He is on antiretroviral therapy. Most recent viral markers from September 2017 showed viral load of 40 and a T cell count of 468. He has a history of end-stage renal disease and recently started on hemodialysis after access was placed. PAST MEDICAL HISTORY: Positive for end-stage renal disease on hemodialysis, history of laryngeal cancer status post radiation, history of hypertension, hyperlipidemia, noninsulin dependent diabetes mellitus, HIV. PAST SURGICAL HISTORY: Status post left upper extremity AV fistula. ALLERGIES: None known. MEDICATIONS: Tivacay, abacavir, Epivir, Pravachol, Flomax, Tenormin, Procardia, Demadex. SOCIAL HISTORY: Lives at home in the community. He is an active tobacco user. SYSTEMS REVIEW: Neurologic: No loss of consciousness, seizure activity, focal weakness.Cardiac: Negative for chest pain or palpitations. Respiratory: As per HPI. Gastrointestinal: Negative vomiting or diarrhea. Genitourinary: As per HPI. LABORATORY DATA: White count 7.3, hematocrit 26.5, platelet count 173. Creatinine 10.5. PHYSICAL EXAMINATION: General: He is awake. He is short of breath at rest on nasal cannula. Vital Signs: Temperature 98.2, blood pressure 195/101, pulse 77 and regular, respirations 18 per minute. HEENT: Sclerae are anicteric. Dry mucous membranes. Heart Sounds: S1, S2. Lungs: Diminished breath sounds at the bases bilaterally.Abdomen: Soft. No tenderness elicited. No mass, rebound or rigidity. Extremities: Positive for edema. IMPRESSION: 1. Bibasilar consolidation. 2. End-stage renal disease on hemodialysis. 3. Human immunodeficiency virus (HIV) positive. PLAN: Suspect bibasilar consolidations represent community-acquired versus atypical pneumonia. Cannot rule out component of volume overload. Await sputum culture results, blood cultures. Empiric antibiotic coverage with Zithromax and ceftriaxone. Continue antiretroviral therapy. Repeat chest x-ray after hemodialysis. Will follow. Thank you for your kind referral. JOSE JAUREGUI M.D. [id number]
[2018-02-09] MEDS: ALBUTEROL SO4 2.5/IPRATROPIUM 0.5 INH SOL 3 ML VIAL.NEB. NEB SCH ×2 (17:00→19:27)
--- NOTE | 2018-02-09 17:21 | CONS ---
DATE OF CONSULTATION: 02/09/2018 PULMONARY CONSULTATION HISTORY OF PRESENT ILLNESS: The patient's history is obtained from the chart. Patient is very drowsy and currently on hemodialysis. The patient is a 67-year-old black male with past medical history of HIV on HAART therapy, hyperlipidemia, non-insulin dependent diabetes mellitus, end-stage renal disease, hypertension, history of throat cancer, recently discharged from [facility] after being treated for shortness of breath on February 04, 2018, discharged in stable condition, who is signed out AMA and who presented back to the emergency room today with complaint of increasing shortness of breath. Apparently was at home, started developing increased shortness of breath, with exertion as well as from lying flat. At that time he presented back to ER. In the ER, he was noted to be in respiratory distress. He was felt to have proximal pneumonia as well as possible CHF. He was admitted to telemetry unit and started on hemodialysis. Chest x-ray performed on admission revealed bibasilar consolidations congestion bilaterally. Of note he underwent a venous blood gas in the ER which revealed acute hypercapnic, likely hypoxemic respiratory failure. He was placed on supplemental O2. He has a history of smoking approximately half pack per day, currently he still smokes. No further history available at this time. PAST MEDICAL HISTORY: Again includes history of anemia and transfusions x3 since August, laryngeal and throat CA status post RT in March of 2017, end-stage renal disease on hemodialysis, HIV on HAART, hypertension, hyperlipidemia, tobacco abuse. Likely COPD. REVIEW OF SYSTEMS: Unable to obtain at this time. CURRENT MEDICATIONS: Include Flomax, heparin, Celexa, Ziagen, Epivir, Ambien, Nicoderm, Tenormin, Procardia, Apresoline, normal saline, Procrit, Lipitor, Demadex, vitamin D3. PHYSICAL EXAMINATION: General: The patient is a well-developed, well-nourished male, drowsy, currently undergoing hemodialysis, in no acute respiratory distress. Vital signs: He is afebrile. Blood pressure 194/97, respiratory rate 16, O2 saturation 97% on 3 L nasal cannula. HEENT: Head is normocephalic, atraumatic. Neck: Supple. Heart: Irregularly irregular. S1, S2. Chest: Bilateral crackles. Abdomen: Soft. Bowel sounds positive. Extremities: No cyanosis, edema. LABORATORY: WBC is 7.3, hemoglobin 8.7, hematocrit 26.5 with platelet count of 173,000. Chemistries: BUN 70, creatinine 10.5, AST 180, ALT 95. Chest x-ray is noted earlier. IMPRESSION: 1. Acute hypoxemic, hypercapnic respiratory failure, likely secondary to fluid overload, decompensated congestive heart failure. 2. pneumonia. 3. Chronic obstructive pulmonary disease. 4. Hypertension. 5. End-stage renal disease on hemodialysis. 6. History of throat carcinoma, status post radiation therapy. 7. Tobacco abuse. 8. Human immunodeficiency virus on highly active antiretroviral therapy. 9. Hyperlipidemia. PLAN: Hemodialysis as per renal. Antibiotics as per infectious disease. Supplemental O2. Check arterial blood gases. BiPAP, NIPPV as needed. Obtain followup chest x-rays. Obtain cultures. Inhaled bronchodilators. Short course of IV steroids. MING MARK M.D. [id number]
[2018-02-09 17:29] VITALS: BMI 24.0
--- NOTE | 2018-02-09 18:44 | CONSULT ---
Consult - text type - Consultation Consultation Note: Renal Consult for ESRD on HD This is a 67 year old gentleman with PMHx of ESRD (started on dialysis last week ), Diabetic Nephropathy, Hypertension, COPD, HIV, Anemia who presented from [facility] with SOB and admitted for COPD/CHF exacerbation. Pt reports that he had orthopnea last night. No fever, chills, abd pain, N/V/D. PMhx: as above Allergies: NKDA Family Hx: NC social hx: + smoker ROS: as per HPI Home Medications Medication Instructions Recorded Abacavir Sulfate [Abacavir] 300 mg PO DAILY 02/04/18 Cholecalciferol (Vitamin D3) 1,000 unit PO DAILY 02/04/18 [Vitamin D3] Citalopram Hydrobromide 20 mg PO DAILY 02/04/18 [Citalopram HBr] Dolutegravir Sodium [Tivicay] 50 mg PO DAILY 02/04/18 Glipizide [Glipizide ER] 0 mg PO BID 02/04/18 Lamivudine [Epivir Hbv] 100 mg PO DAILY 02/04/18 Pravastatin Sodium [Pravachol] 40 mg PO DAILY 02/04/18 Sodium Fluoride/Potassium Nit 100 ml DT BID 02/04/18 [Prevident 5000 Enamel Protect] Tamsulosin HCl [Flomax -] 0.4 mg PO DAILY 02/04/18 Zolpidem Tartrate [Ambien] 5 mg PO HS MDD mmd1 02/04/18 Atenolol [Tenormin -] 50 mg PO DAILY #30 tablet 02/06/18 Ferrous Sulfate [Feosol] 325 mg PO BID #60 tab 02/06/18 Hydralazine HCl 25 mg PO DAILY 30 Days #30 tablet 02/06/18 Nicotine Patch [Nicoderm Patch -] 21 mg TD DAILY #30 patch 02/06/18 Nifedipine ER [Procardia XL -] 90 mg PO DAILY@0900 #60 tab.er.24 02/06/18 Torsemide [Demadex -] 40 mg PO DAILY #60 tablet 02/06/18 CBC, BMP 02/09/18 10:12 02/09/18 10:12 Current Medications Abacavir Sulfate (Ziagen -) 300 mg PO DAILY JIMENEZ Albuterol/Ipratropium (Duoneb -) 1 amp NEB RQID JIMENEZ Atorvastatin Calcium (Lipitor -) 10 mg PO HS [facility] Carvedilol (Coreg -) 6.25 mg PO BID [facility] Last Admin: 02/09/18 16:25 Dose: 6.25 mg Cholecalciferol (Vitamin D3 -) 1,000 unit PO DAILY [facility] Citalopram Hydrobromide (Celexa -) 20 mg PO DAILY [facility] Epoetin Don[place] (Procrit -) 10,000 unit IVPUSH ONCE [facility] Stop: 02/09/18 23:59 Ferrous Sulfate (Feosol -) 325 mg PO BID [facility] Heparin Sodium (Porcine) (Heparin -) 1,000 unit IVPUSH ONCE [facility] Stop: 02/09/18 23:59 Hydralazine HCl (Apresoline -) 50 mg PO BID [facility] Sodium Chloride (Normal Saline -) 250 mls @ 3,000 mls/hr IV PRN PRN PRN Reason: Hypotension during Dialysis Stop: 02/10/18 13:13 Ceftriaxone Sodium 1 gm/ (Dextrose) 50 mls @ 100 mls/hr IVPB DAILY [facility] PRN Reason: Protocol Azithromycin 500 mg/ Dextrose 250 mls @ 250 mls/hr IVPB DAILY [facility] Lamivudine (Epivir Oral Solution -) 100 mg PO DAILY [facility] Methylprednisolone Sodium Succinate (Solu-Medrol -) 40 mg IVPUSH Q6H-IV [facility] Nicotine (Nicoderm Patch -) 21 mg TD DAILY [facility] Last Admin: 02/09/18 16:25 Dose: 21 mg Nifedipine (Procardia Xl -) 90 mg PO DAILY@0900 [facility] Tamsulosin HCl (Flomax -) 0.4 mg PO DAILY@0830 [facility] Torsemide (Demadex -) 40 mg PO DAILY [facility] Zolpidem Tartrate (Ambien -) 5 mg PO HS [facility] 67 year old gentleman with PMHx of ESRD (started on dialysis last week), Diabetic Nephropathy, Hypertension, COPD, HIV, Anemia who presented from [facility] with SOB and admitted for COPD/CHF exacerbation #ESRD on HD with fluid overload #COPD exacerbation #Hypertension #HIV #Anemia Will plan for dialysis today as inpatient with UF as tolerated Continue Nebs, Pulmonary follow up, titrate steroids as per pulmonary continue Procardia XL, Coreg and Hydralazine continue Torsemide additional UF as tolerated Will follow Trey Pereyra DO
[2018-02-09] MEDS ORDERED: DEXTROSE 5%-WATER - 50 ML IVPB ONE (19:18)
[2018-02-09] MEDS ORDERED: cefTRIAXone SODIUM 1 GM VIAL ONE (19:18)
[2018-02-09] MEDS: FERROUS SO4 325 MG TABLET (FP) PO SCH ×2 (19:25→21:00)
[2018-02-09 19:50] LABS: ARTERIAL BLD GAS O2 SATURATION 96.5 % (90-98.9); ARTERIAL BLOOD GAS BASE EXCESS 7.4 meq/l (-2-2); ARTERIAL BLOOD GAS PCO2 41.2 mmHg (35-45); ARTERIAL BLOOD GAS PO2 92.6 mmHg (80-100); ARTERIAL BLOOD GAS pH 7.49 (7.35-7.45)
[2018-02-09 19:51] LABS: ALLENS TEST POSITIVE
[2018-02-09] MEDS: ABACAVIR SULFATE 300 MG TABLET PO SCH (19:58)
[2018-02-09] MEDS: CHOLECALCIFEROL (VITAMIN D3) 1,000 UNIT TABLET (FP) PO SCH (19:58)
[2018-02-09] MEDS: TAMSULOSIN HCL 0.4 MG CAP.ER.24H (FP) PO SCH (19:58)
[2018-02-09] MEDS: CITALOPRAM HYDROBROMIDE 20 MG TABLET (FP) PO SCH (19:58)
[2018-02-09] MEDS: CEFTRIAXONE 1 GM in DEXTROSE 5%-WATER - 50 ML IVPB SCH (19:59)
[2018-02-09] MEDS: methylPREDNISolone NA SUCC 40 MG/1 ML VIAL IVPUSH SCH (19:59)
[2018-02-09] MEDS: TORSEMIDE 20 MG TABLET (FP) PO SCH (19:59)
[2018-02-09] MEDS: ATORVASTATIN CA 10 MG TABLET (FP) PO SCH (21:00)
[2018-02-09] MEDS: DOLUTEGRAVIR SODIUM 50 MG TABLET PO SCH (21:35)
[2018-02-09] MEDS ORDERED: PT OWN MED DRAWER 7, Y5N ONE (21:46)
[2018-02-09] MEDS: ZOLPIDEM TARTRATE 5 MG TABLET PO SCH (22:56)
[2018-02-10] MEDS ORDERED: hydrALAZINE HCL 25 MG TABLET (FP) PO ONE (02:33)
[2018-02-10] MEDS: methylPREDNISolone NA SUCC 40 MG/1 ML VIAL IVPUSH SCH ×4 (02:46→22:28)
[2018-02-10] MEDS: NIFEdipine E.R. 90 MG TABLET (FP) PO SCH (05:55)
[2018-02-10 06:46] LABS: BASO % 0.1 % (0-2.0); HEMATOCRIT 24.4 % (35.4-49); HEMOGLOBIN 8.1 GM/dL (11.7-16.9); LYMPH % 8.3 % (8-40); MCH 31.3 pg (25.7-33.7); MCHC 33.1 g/dl (32.0-35.9); MEAN CELL VOLUME 94.7 fl (80-96); MEAN PLT VOLUME 7.8 fl (7.5-11.1); MONO % 3.5 % (3.8-10.2); NEUT % 88.1 % (42.8-82.8); PLATELET COUNT 164 K/MM3 (134-434); RBC 2.58 M/mm3 (4.00-5.60); RDW 21.6 % (11.9-15.9); WHITE BLOOD COUNT 5.1 K/mm3 (4.0-10.0)
[2018-02-10 07:16] LABS: ALBUMIN 2.4 g/dl (3.4-5.0); ANION GAP 11 (8-16); BLOOD UREA NITROGEN 45 mg/dL (7-18); CALCIUM 8.3 mg/dL (8.5-10.1); CHLORIDE 102 mmol/L (98-107); CO2 29 mmol/L (21-32); GLUCOSE,RANDOM 253 mg/dL (74-106); MAGNESIUM 1.9 mg/dL (1.8-2.4); POTASSIUM 4.4 mmol/L (3.5-5.1); SGOT/AST 41 U/L (15-37); SGPT/ALT 57 U/L (12-78); SODIUM 142 mmol/L (136-145)
[2018-02-10 07:24] LABS: ALK PHOS 140 U/L (45-117); BILIRUBIN,TOTAL 0.2 mg/dL (0.2-1.0); CREATININE 7.4 mg/dL (0.7-1.3); TOT PROT 6.1 g/dl (6.4-8.2)
[2018-02-10] MEDS: ALBUTEROL SO4 2.5/IPRATROPIUM 0.5 INH SOL 3 ML VIAL.NEB. NEB SCH ×4 (07:24→20:20)
--- NOTE | 2018-02-10 07:56 | CON.CARD ---
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 He denies chest pain, near or true syncope, palpitations, or LE edema. Symptoms improving after ultrafiltration. - History Source History Provided By: Patient Limitations to Obtaining History: No Limitations - Past Medical History Cardio/Vascular: Yes: HTN, Hyperlipdemia Pulmonary: Yes: COPD Gastrointestinal: Yes: Constipation, GERD Hepatobiliary: Yes: Other Renal/: Yes: Renal Inusuff, BPH Infectious Disease: Yes: HIV, STD's Musculoskeletal: Yes: Chronic low back pain Endocrine: Yes: Diabetes Mellitus (with retinopathy and nephropathy) Additional Medical History: Recovering alcoholic x 8 years. 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 History of Recent Travel: No Home Medications - Allergies Allergies/Adverse Reactions: Allergies Allergy/AdvReac Type Severity Reaction Status Date / Time No Known Drug Allergies Allergy Verified 02/09/18 09:39 - Home Medications Home Medications: Ambulatory Orders Abacavir Sulfate [Abacavir] 300 mg PO DAILY 02/04/18 Cholecalciferol (Vitamin D3) [Vitamin D3] 1,000 unit PO DAILY 02/04/18 Citalopram Hydrobromide [Citalopram HBr] 20 mg PO DAILY 02/04/18 Dolutegravir Sodium [Tivicay] 50 mg PO DAILY 02/04/18 Glipizide [Glipizide ER] 0 mg PO BID 02/04/18 Lamivudine [Epivir Hbv] 100 mg PO DAILY 02/04/18 Pravastatin Sodium [Pravachol] 40 mg PO DAILY 02/04/18 Sodium Fluoride/Potassium Nit [Prevident 5000 Enamel Protect] 100 ml DT BID Tamsulosin HCl [Flomax -] 0.4 mg PO DAILY 02/04/18 Zolpidem Tartrate [Ambien] 5 mg PO HS MDD mmd1 02/04/18 Atenolol [Tenormin -] 50 mg PO DAILY #30 tablet 02/06/18 Ferrous Sulfate [Feosol] 325 mg PO BID #60 tab 02/06/18 Hydralazine HCl 25 mg PO DAILY 30 Days #30 tablet 02/06/18 Nicotine Patch [Nicoderm Patch -] 21 mg TD DAILY #30 patch 02/06/18 Nifedipine ER [Procardia XL -] 90 mg PO DAILY@0900 #60 tab.er.24 02/06/18 Torsemide [Demadex -] 40 mg PO DAILY #60 tablet 02/06/18 Family Disease History - Family Disease History Family Disease History: CA: Mother, Other: Father Review of Systems - Review of Systems Cardiovascular: reports: Shortness of Breath Respiratory: reports: Orthopnea, PND, SOB Vital Signs: Vital Signs Temperature 98.4 F 02/10/18 05:58 Pulse Rate 85 02/10/18 05:58 Respiratory Rate 20 02/10/18 05:58 Blood Pressure 189/93 02/10/18 05:58 O2 Sat by Pulse Oximetry (%) 100 02/09/18 21:00 Constitutional: Yes: No Distress, Calm Neck: Yes: Supple Respiratory: Yes: Regular, CTA Bilaterally Gastrointestinal: Yes: Normal Bowel Sounds, Soft Cardiovascular: Yes: Regular Rate and Rhythm JVD: No Carotid Bruit: No Heart Sounds: Yes: S1, S2 Edema: No - Other Data Labs, Other Data: CBC, BMP 02/10/18 05:35 02/10/18 05:35 Troponin, BNP 02/09/18 02/09/18 02/09/18 10:12 18:00 22:53 Troponin I 0.02 D 0.03 D 0.03 B-Natriuretic Peptide 68806.73 H Troponin, BNP 02/09/18 02/09/18 02/09/18 10:12 18:00 22:53 Troponin I 0.02 D 0.03 D 0.03 B-Natriuretic Peptide 43553.73 H Problem List - Problems (1) Acute on chronic diastolic (congestive) heart failure Code(s): I50.33 - ACUTE ON CHRONIC DIASTOLIC (CONGESTIVE) HEART FAILURE (2) Hypertensive cardiomegaly with heart failure Code(s): I11.0 - HYPERTENSIVE HEART DISEASE WITH HEART FAILURE (3) Acute respiratory failure with hypoxia and hypercapnia Code(s): J96.01 - ACUTE RESPIRATORY FAILURE WITH HYPOXIA; J96.02 - ACUTE RESPIRATORY FAILURE WITH HYPERCAPNIA (4) ESRD (end stage renal disease) Code(s): N18.6 - END STAGE RENAL DISEASE (5) Fluid overload Code(s): E87.70 - FLUID OVERLOAD, UNSPECIFIED Qualifiers: Hypervolemia type: unspecified Qualified Code(s): E87.70 - Fluid overload, unspecified (6) Shortness of breath Code(s): R06.02 - SHORTNESS OF BREATH (7) Anemia Code(s): D64.9 - ANEMIA, UNSPECIFIED Qualifiers: Anemia type: due to chronic kidney disease Chronic kidney disease stage: on chronic dialysis Qualified Code(s): N18.6 - End stage renal disease; D63.1 - Anemia in chronic kidney disease; D63.1 - Anemia in chronic kidney disease; Z99.2 - Dependence on renal dialysis; Z99.2 - Dependence on renal dialysis; Z99.2 - Dependence on renal dialysis; Z99.2 - Dependence on renal dialysis (8) Diabetes 1.5, managed as type 2 Code(s): E13.9 - OTHER SPECIFIED DIABETES MELLITUS WITHOUT COMPLICATIONS (9) Hyperlipidemia Code(s): E78.5 - HYPERLIPIDEMIA, UNSPECIFIED Qualifiers: Hyperlipidemia type: pure hypercholesterolemia Qualified Code(s): E78.00 - Pure hypercholesterolemia, unspecified; E78.0 - Pure hypercholesterolemia (10) Hypertensive urgency Code(s): I16.0 - HYPERTENSIVE URGENCY (11) HIV (human immunodeficiency virus infection) Code(s): Z21 - ASYMPTOMATIC HUMAN IMMUNODEFICIENCY VIRUS INFECTION STATUS Assessment/Plan 02/05/2018 Normal biventricular size and fxn, mod AR, mild MR 1. Acute on chronic diastolic failure in context of hypertensive urgency improving 2. Hypertensive cardiomyopathy 3. ESRD->HD 4. HIV 5. COPD not in exacerbation 6. Anemia of CKD P:1. Volume removal via UF 2. Empiric abx, BS, O2, rapid steroid taper 3. Agree with change Atenolol to carvedilol, procardia XL. hydralazine with uptitration as tolerated, add ARB if agreeable with renal, continue Demadex 40 qd, Lipitor 10 qd 4. Thank you for consultative opportunity
[2018-02-10] MEDS ORDERED: CARVEDILOL 6.25 MG TABLET (FP) PO ONE (08:45)
[2018-02-10] MEDS ORDERED: cefTRIAXone SODIUM 1 GM VIAL ONE (08:47)
[2018-02-10] MEDS ORDERED: DEXTROSE 5%-WATER - 50 ML IVPB ONE (08:48)
[2018-02-10] MEDS ORDERED: PT OWN MED DRAWER 7, Y5N ONE (08:50)
[2018-02-10] MEDS: TAMSULOSIN HCL 0.4 MG CAP.ER.24H (FP) PO SCH (09:00)
[2018-02-10] MEDS: CEFTRIAXONE 1 GM in DEXTROSE 5%-WATER - 50 ML IVPB SCH (09:34)
[2018-02-10] MEDS: AZITHROMYCIN IVPB 500 MG in DEXTROSE 5%-WATER - 250 ML IVPB SCH (09:34)
[2018-02-10] MEDS: CHOLECALCIFEROL (VITAMIN D3) 1,000 UNIT TABLET (FP) PO SCH (09:35)
[2018-02-10] MEDS: TORSEMIDE 20 MG TABLET (FP) PO SCH (09:35)
[2018-02-10] MEDS: ABACAVIR SULFATE 300 MG TABLET PO SCH (09:35)
[2018-02-10] MEDS: CARVEDILOL 12.5 MG TABLET (FP) PO SCH ×2 (09:36→22:28)
[2018-02-10] MEDS: FERROUS SO4 325 MG TABLET (FP) PO SCH ×2 (09:36→22:28)
[2018-02-10] MEDS: CITALOPRAM HYDROBROMIDE 20 MG TABLET (FP) PO SCH (09:36)
[2018-02-10] MEDS: lamiVUDine 10 MG/1 ML BULK BOTTLE PO SCH (09:37)
[2018-02-10] MEDS: NICOTINE 21 MG/24 HOURS TOPICAL PATCH TD SCH (09:38)
[2018-02-10] MEDS: DOLUTEGRAVIR SODIUM 50 MG TABLET PO SCH (09:39)
[2018-02-10] MEDS ORDERED: ATENOLOL 50 MG TABLET (FP) PO SCH ×2 (10:00)
--- NOTE | 2018-02-10 11:23 | PN ---
Progress Note, Physician History of Present Illness: PULMONARY ALERT,MUCH IMPROVED,SOB IMPROVED - Current Medication List Current Medications: Active Medications Abacavir Sulfate (Ziagen -) 300 mg PO DAILY [facility] Last Admin: 02/10/18 09:35 Dose: 300 mg Albuterol/Ipratropium (Duoneb -) 1 amp NEB RQID [facility] Last Admin: 02/10/18 11:08 Dose: 1 amp Atorvastatin Calcium (Lipitor -) 10 mg PO HS [facility] Last Admin: 02/09/18 21:00 Dose: 10 mg Carvedilol (Coreg -) 12.5 mg PO BID [facility] Last Admin: 02/10/18 09:36 Dose: 12.5 mg Cholecalciferol (Vitamin D3 -) 1,000 unit PO DAILY [facility] Last Admin: 02/10/18 09:35 Dose: 1,000 unit Citalopram Hydrobromide (Celexa -) 20 mg PO DAILY [facility] Last Admin: 02/10/18 09:36 Dose: 20 mg Ferrous Sulfate (Feosol -) 325 mg PO BID [facility] Last Admin: 02/10/18 09:36 Dose: 325 mg Hydralazine HCl (Apresoline -) 50 mg PO TID [facility] Sodium Chloride (Normal Saline -) 250 mls @ 3,000 mls/hr IV PRN PRN PRN Reason: Hypotension during Dialysis Stop: 02/10/18 13:13 Ceftriaxone Sodium 1 gm/ (Dextrose) 50 mls @ 100 mls/hr IVPB DAILY [facility] PRN Reason: Protocol Last Admin: 02/10/18 09:34 Dose: 100 mls/hr Azithromycin 500 mg/ Dextrose 250 mls @ 250 mls/hr IVPB DAILY [facility] Last Admin: 02/10/18 09:34 Dose: 250 mls/hr Lamivudine (Epivir Oral Solution -) 100 mg PO DAILY [facility] Last Admin: 02/10/18 09:37 Dose: 100 mg Methylprednisolone Sodium Succinate (Solu-Medrol -) 40 mg IVPUSH Q6H-IV [facility] Last Admin: 02/10/18 09:38 Dose: 40 mg Nicotine (Nicoderm Patch -) 21 mg TD DAILY [facility] Last Admin: 02/10/18 09:38 Dose: 21 mg Nifedipine (Procardia Xl -) 90 mg PO DAILY@0900 [facility] Last Admin: 02/10/18 05:55 Dose: 90 mg Tamsulosin HCl (Flomax -) 0.4 mg PO DAILY@0830 [facility] Last Admin: 02/10/18 09:00 Dose: 0.4 mg Torsemide (Demadex -) 40 mg PO DAILY [facility] Last Admin: 02/10/18 09:35 Dose: 40 mg Zolpidem Tartrate (Ambien -) 5 mg PO [facility] Last Admin: 02/09/18 22:56 Dose: 5 mg - Objective Vital Signs: Vital Signs Temperature 98.4 F 02/10/18 05:58 Pulse Rate 85 02/10/18 05:58 Respiratory Rate 20 02/10/18 05:58 Blood Pressure 189/93 02/10/18 05:58 O2 Sat by Pulse Oximetry (%) 100 02/09/18 21:00 Constitutional: Yes: Well Nourished, Calm Eyes: Yes: WNL HENT: Yes: WNL Neck: Yes: WNL Cardiovascular: Yes: Regular Rate and Rhythm, Bruit, S1, S2 Respiratory: Yes: Rales (FEW BIBASILAR RALES) Gastrointestinal: Yes: Normal Bowel Sounds, Soft Extremities: Yes: WNL Edema: No Labs: CBC, BMP 02/10/18 05:35 02/10/18 05:35 Laboratory Tests 02/09/18 19:30 ABG pH 7.49 H ABG pCO2 at Pt Temp 41.2 ABG pO2 at Pt Temp 92.6 ABG HCO3 31.1 H ABG O2 Sat (Measured) 96.5 ABG O2 Content 12.5 L O2 Delivery Device V/m Oxygen Flow Rate 50 Laboratory Tests 02/09/18 19:30 ABG pH 7.49 H ABG pCO2 at Pt Temp 41.2 ABG pO2 at Pt Temp 92.6 ABG HCO3 31.1 H ABG O2 Sat (Measured) 96.5 O2 Delivery Device V/m Oxygen Flow Rate 50 Problem List - Problems (1) ESRD (end stage renal disease) Code(s): N18.6 - END STAGE RENAL DISEASE (2) COPD exacerbation Code(s): J44.1 - CHRONIC OBSTRUCTIVE PULMONARY DISEASE W (ACUTE) EXACERBATION (3) Fluid overload Code(s): E87.70 - FLUID OVERLOAD, UNSPECIFIED Qualifiers: Hypervolemia type: unspecified Qualified Code(s): E87.70 - Fluid overload, unspecified (4) Shortness of breath Code(s): R06.02 - SHORTNESS OF BREATH (5) Chronic kidney disease Code(s): N18.9 - CHRONIC KIDNEY DISEASE, UNSPECIFIED Qualifiers: Chronic kidney disease stage: unspecified stage Qualified Code(s): N18.9 - Chronic kidney disease, unspecified (6) Anemia, chronic disease Code(s): D63.8 - ANEMIA IN OTHER CHRONIC DISEASES CLASSIFIED ELSEWHERE (7) Hypertension Code(s): I10 - ESSENTIAL (PRIMARY) HYPERTENSION (8) Renal failure Code(s): N19 - UNSPECIFIED KIDNEY FAILURE (9) Throat cancer Code(s): C14.0 - MALIGNANT NEOPLASM OF PHARYNX, UNSPECIFIED (10) HIV (human immunodeficiency virus infection) Code(s): Z21 - ASYMPTOMATIC HUMAN IMMUNODEFICIENCY VIRUS INFECTION STATUS (11) Acute respiratory failure with hypoxia and hypercapnia Code(s): J96.01 - ACUTE RESPIRATORY FAILURE WITH HYPOXIA; J96.02 - ACUTE RESPIRATORY FAILURE WITH HYPERCAPNIA Assessment/Plan IMP ACUTE HYPOXEMIC/HYPERCAPNEIC RESPIRATORY FAILURE INPROVED CHF/FLUID OVERLOAD IMPROVED COPD ? PNEUMONIA HIV ON HAART H/O LARYNGEAL/THROAT CA S/P RT HTN ESRD ON HD PLAN HD PER RENAL O2 NIPPV NEEDED F/U CHEST X-RAYS ABX PER ID D/C MEDROL IN DR MARK Problem List - Problems (1) ESRD (end stage renal disease) Code(s): N18.6 - END STAGE RENAL DISEASE (2) COPD exacerbation Code(s): J44.1 - CHRONIC OBSTRUCTIVE PULMONARY DISEASE W (ACUTE) EXACERBATION (3) Fluid overload Code(s): E87.70 - FLUID OVERLOAD, UNSPECIFIED Qualifiers: Hypervolemia type: unspecified Qualified Code(s): E87.70 - Fluid overload, unspecified (4) Shortness of breath Code(s): R06.02 - SHORTNESS OF BREATH (5) Chronic kidney disease Code(s): N18.9 - CHRONIC KIDNEY DISEASE, UNSPECIFIED Qualifiers: Chronic kidney disease stage: unspecified stage Qualified Code(s): N18.9 - Chronic kidney disease, unspecified (6) Anemia, chronic disease Code(s): D63.8 - ANEMIA IN OTHER CHRONIC DISEASES CLASSIFIED ELSEWHERE (7) Hypertension Code(s): I10 - ESSENTIAL (PRIMARY) HYPERTENSION (8) Renal failure Code(s): N19 - UNSPECIFIED KIDNEY FAILURE (9) Throat cancer Code(s): C14.0 - MALIGNANT NEOPLASM OF PHARYNX, UNSPECIFIED (10) HIV (human immunodeficiency virus infection) Code(s): Z21 - ASYMPTOMATIC HUMAN IMMUNODEFICIENCY VIRUS INFECTION STATUS (11) Acute respiratory failure with hypoxia and hypercapnia Code(s): J96.01 - ACUTE RESPIRATORY FAILURE WITH HYPOXIA; J96.02 - ACUTE RESPIRATORY FAILURE WITH HYPERCAPNIA
--- NOTE | 2018-02-10 12:13 | PN ---
Physical Exam: SUBJECTIVE: Patient seen and examined Feels good today, now tolerating room air States his voice sounds better and his appetite has returned. Not short of breath, want to leave today. "I have too many things to do today" OBJECTIVE: Patient wants to sign out AMA, I asked him to please re-consider He feels well right now and his BP has improved but I informed him that we just up-titrated his cardiac meds this morning and overnight was given extra doses of Hydralazine for elevated BP. Informed him that he feels good right now because we are medially managing his symptoms with steriods, oxygen, new cardiac medications, etc. Explained that elevated BPs can put him at risk for strokes He does have a history of leaving AMA, states he has alot to do: housing appointments, doctors appointment, financial obligations I told him that I understood his concerns and will try to get him out as soon as his blood pressure is better controlled>likely tomorrow but made no promises , he is thinking about staying today. In the meantime, with his AMA history, I will call his cardiac meds to his pharmacy Vital Signs Period Temp Pulse Resp BP Sys/Montes Pulse Ox Last 24 Hr 98.0 F-99 F 77-96 16-26 143-206/79-105 100-100 GENERAL: Awake, alert, in respiratory distress, 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 EYES: Pupils equal, round and reactive to light, extraocular movements intact, sclera anicteric, conjunctiva clear. No lid lag. EARS, NOSE, THROAT: Ears normal, nares patent, oropharynx clear without exudates. Moist mucous membranes. NECK: Normal range of motion, supple without lymphadenopathy, JVD, or masses. LUNGS:lungs sounds improved s/p dialysis, does not quality for home oxygen HEART: Regular rate and rhythm, normal S1 and S2 without murmur, rub or gallop. SKIN: Warm, dry, normal turgor, no rashes or lesions noted, normal capillary refill - left arm fistula Laboratory Results - last 24 hr 02/09/18 02/09/18 02/09/18 15:27 18:00 19:30 WBC RBC Hgb Hct MCV MCH MCHC RDW Plt Count MPV Neutrophils % Lymphocytes % Monocytes % Eosinophils % Basophils % Anticoagulation Therapy No Result Required. Puncture Site Right radial ABG pH 7.49 H ABG pCO2 at Pt Temp 41.2 ABG pO2 at Pt Temp 92.6 ABG HCO3 31.1 H ABG O2 Sat (Measured) 96.5 ABG O2 Content 12.5 L ABG Base Excess 7.4 H Bright Test Positive O2 Delivery Device V/m Oxygen Flow Rate 50 Vent Mode No Result Required. Vent Rate No Result Required. Mechanical Rate No Result Required. Pressure Support Vent No Result Required. Sodium Potassium Chloride Carbon Dioxide Anion Gap BUN Creatinine Creat Clearance w eGFR Random Glucose Calcium Magnesium Total Bilirubin AST ALT Alkaline Phosphatase Troponin I 0.03 D Total Protein Albumin 02/09/18 02/10/18 02/10/18 22:53 05:35 05:35 WBC 5.1 D RBC 2.58 L Hgb 8.1 L Hct 24.4 L MCV 94.7 MCH 31.3 MCHC 33.1 RDW 21.6 H Plt Count 164 MPV 7.8 Neutrophils % 88.1 H Lymphocytes % 8.3 Monocytes % 3.5 L Eosinophils % 0.0 D Basophils % 0.1 Anticoagulation Therapy Puncture Site ABG pH ABG pCO2 at Pt Temp ABG pO2 at Pt Temp ABG HCO3 ABG O2 Sat (Measured) ABG O2 Content ABG Base Excess Bright Test O2 Delivery Device Oxygen Flow Rate Vent Mode Vent Rate Mechanical Rate Pressure Support Vent Sodium 142 Potassium 4.4 Chloride 102 Carbon Dioxide 29 Anion Gap 11 BUN 45 H D Creatinine 7.4 H D Creat Clearance w eGFR 7.45 Random Glucose 253 H D Calcium 8.3 L Magnesium 1.9 Total Bilirubin 0.2 AST 41 H D ALT 57 D Alkaline Phosphatase 140 H D Troponin I 0.03 Total Protein 6.1 L Albumin 2.4 L Active Medications Generic Name Dose Route Start Last Admin Trade Name Freq PRN Reason Stop Dose Admin Abacavir Sulfate 300 mg 02/09/18 13:00 02/10/18 09:35 Ziagen - PO 300 mg DAILY [facility]Z Administration Albuterol/Ipratropium 1 amp 02/09/18 16:00 02/10/18 11:08 Duoneb - NEB 1 amp RQID JIMENEZ Administration Atorvastatin Calcium 10 mg 02/09/18 22:00 02/09/18 21:00 Lipitor - PO 10 mg HS JIMENEZ Administration Carvedilol 12.5 mg 02/10/18 08:15 02/10/18 09:36 Coreg - PO 12.5 mg BID JIMENEZ Administration Cholecalciferol 1,000 unit 02/09/18 12:45 02/10/18 09:35 Vitamin D3 - PO 1,000 unit DAILY [facility] Administration Citalopram Hydrobromide 20 mg 02/09/18 13:00 02/10/18 09:36 Celexa - PO 20 mg DAILY [facility] Administration Ferrous Sulfate 325 mg 02/09/18 12:45 02/10/18 09:36 Feosol - PO 325 mg BID JIMENEZ Administration Hydralazine HCl 50 mg 02/10/18 07:37 Apresoline - PO TID JIMENEZ Sodium Chloride 250 mls @ 3,000 mls/hr 02/09/18 13:14 Normal Saline - IV 02/10/18 13:13 PRN PRN Hypotension during Dialysis Ceftriaxone Sodium 1 gm/ 50 mls @ 100 mls/hr 02/09/18 15:45 02/10/18 09:34 Dextrose IVPB 100 mls/hr DAILY [facility] Administration Protocol Azithromycin 500 mg/ Dextrose 250 mls @ 250 mls/hr 02/09/18 15:45 02/10/18 09 :34 IVPB 250 mls/hr DAILY [facility] Administration Lamivudine 100 mg 02/10/18 10:00 02/10/18 09:37 Epivir Oral Solution - PO 100 mg DAILY [facility] Administration Methylprednisolone Sodium Succinate 40 mg 02/09/18 21:00 02/10/18 09:38 Solu-Medrol - IVPUSH 40 mg Q6H-IV [facility] Administration Nicotine 21 mg 02/09/18 13:00 02/10/18 09:38 Nicoderm Patch - TD 21 mg DAILY [facility] Administration Nifedipine 90 mg 02/10/18 06:00 02/10/18 05:55 Procardia Xl - PO 90 mg DAILY@0900 [facility] Administration Tamsulosin HCl 0.4 mg 02/09/18 12:45 02/10/18 09:00 Flomax - PO 0.4 mg DAILY@0830 [facility] Administration Torsemide 40 mg 02/09/18 13:00 02/10/18 09:35 Demadex - PO 40 mg DAILY [facility] Administration Zolpidem Tartrate 5 mg 02/09/18 22:00 02/09/18 22:56 Ambien - PO 5 mg HS [facility] Administration ASSESSMENT/PLAN: Patient is a 67 year old male with a significant past medical history of hypertension, hyperlipidemia, NIDDM, ESRD, HIV+ (on HAART), anemia, and throat cancer. Patient has had an AV fistula placed earlier this month for dialysis. Has received his first dialysis on his last admission which was 1 week ago and was supposed to get dialysis on 02/09/2018, however, he returns to the ER with shortness of breath. He had inpatient dialysis on admission and will get dialysis again today. He was noted to have hypertensive urgency on admission. 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 chest xray 02/09: bilateral consolidations Pulm: Shortness of breath, much improved, likely secondary to fluid overload Acute respiratory failure/hypercapneic respiratory failure, treatment with steriods Consolidations seen on xray CT chest on last admission, pulm following Dialysis yesterday with 3 liters removed, dialysis again today Started on Medrol by pulmonary Toresemide 40mg daily On Azithromycin, Ceftriaxone per ID Hemoptosys, on last admission, heparin stopped, therefore will not anticoagulate with heparin Card: Hypertensive Urgency, acute Now on Coreq 12.5 BID, Hydralazine 50mg TID, Procardia 90mg daily Trop negative, cardiology following Acute on chronic diastolic heart failure On Toresemide 40mg daily Daily weight Hyperlipidemia, chronic Endocrine: Diabetes, chronic Novolog SS Renal: ESRD, dialysis today via left arm fistula for volume overload ID: HIV +, chronic on HAART meds ID following Heme: Anemia, chronic Onc: Throat cancer, chronic s/p treatment, pt has appt to see his oncologist - has appointment F.E.N. Fluids: none Electrolytes: monitor Nutrition: renal diet Disposition: full code Visit type - Emergency Visit Emergency Visit: Yes ED Registration Date: 02/09/18 Care time: The patient presented to the Emergency Department on the above date and was hospitalized for further evaluation of their emergent condition. - New Patient This patient is new to me today: No - Critical Care Critical Care patient: No - Discharge Referral Referred to [facility] Med P.C.: No
[2018-02-10] MEDS ORDERED: SODIUM CHLORIDE 250 ML IV PRN (13:06)
[2018-02-10] MEDS: hydrALAZINE HCL 50 MG TABLET (FP) PO SCH ×2 (14:30→22:28)
--- NOTE | 2018-02-10 15:26 | PN ---
Progress Note (short form) - Note Progress Note: Renal Consult for ESRD on HD Pt seen and examined at the bedside awake and alert no acute complaints sob is improved feels much better s/p dialysis Vital Signs Temperature 98.8 F 02/10/18 14:53 Pulse Rate 86 02/10/18 14:53 Respiratory Rate 22 02/10/18 14:53 Blood Pressure 165/63 02/10/18 14:53 O2 Sat by Pulse Oximetry (%) 94 L 02/10/18 13:14 Intake & Output 02/07/18 02/08/18 02/09/18 02/10/18 23:59 23:59 23:59 23:59 Intake Total 730 120 Output Total 450 300 Balance 280 -180 Weight 82.554 kg 77.655 kg NAD awake and alert RRR, No M/R Dec Bs at lung bases soft NT/ND No LE edema CBC, BMP 02/10/18 05:35 02/10/18 05:35 Current Medications Abacavir Sulfate (Ziagen -) 300 mg PO DAILY [facility] Last Admin: 02/10/18 09:35 Dose: 300 mg Albuterol/Ipratropium (Duoneb -) 1 amp NEB RQID [facility] Last Admin: 02/10/18 11:08 Dose: 1 amp Atorvastatin Calcium (Lipitor -) 10 mg PO HS [facility] Last Admin: 02/09/18 21:00 Dose: 10 mg Carvedilol (Coreg -) 12.5 mg PO BID [facility] Last Admin: 02/10/18 09:36 Dose: 12.5 mg Cholecalciferol (Vitamin D3 -) 1,000 unit PO DAILY [facility] Last Admin: 02/10/18 09:35 Dose: 1,000 unit Citalopram Hydrobromide (Celexa -) 20 mg PO DAILY [facility] Last Admin: 02/10/18 09:36 Dose: 20 mg Ferrous Sulfate (Feosol -) 325 mg PO BID [facility] Last Admin: 02/10/18 09:36 Dose: 325 mg Hydralazine HCl (Apresoline -) 50 mg PO TID [facility] Last Admin: 02/10/18 14:30 Dose: 50 mg Ceftriaxone Sodium 1 gm/ (Dextrose) 50 mls @ 100 mls/hr IVPB DAILY [facility] PRN Reason: Protocol Last Admin: 02/10/18 09:34 Dose: 100 mls/hr Azithromycin 500 mg/ Dextrose 250 mls @ 250 mls/hr IVPB DAILY [facility] Last Admin: 02/10/18 09:34 Dose: 250 mls/hr Sodium Chloride (Normal Saline -) 250 mls @ 3,000 mls/hr IV PRN PRN PRN Reason: Hypotension during Dialysis Stop: 02/11/18 13:06 Insulin Aspart (Novolog Vial Sliding Scale -) 1 vial SQ ACHS [facility] PRN Reason: Protocol Lamivudine (Epivir Oral Solution -) 100 mg PO DAILY [facility] Last Admin: 02/10/18 09:37 Dose: 100 mg Methylprednisolone Sodium Succinate (Solu-Medrol -) 40 mg IVPUSH Q6H-IV [facility] Last Admin: 02/10/18 14:29 Dose: 40 mg Nicotine (Nicoderm Patch -) 21 mg TD DAILY [facility] Last Admin: 02/10/18 09:38 Dose: 21 mg Nifedipine (Procardia Xl -) 90 mg PO DAILY@0900 [facility] Last Admin: 02/10/18 05:55 Dose: 90 mg Tamsulosin HCl (Flomax -) 0.4 mg PO DAILY@0830 [facility] Last Admin: 02/10/18 09:00 Dose: 0.4 mg Torsemide (Demadex -) 40 mg PO DAILY [facility] Last Admin: 02/10/18 09:35 Dose: 40 mg Zolpidem Tartrate (Ambien -) 5 mg PO HS [facility] Last Admin: 02/09/18 22:56 Dose: 5 mg 67 year old gentleman with PMHx of ESRD (started on dialysis last week), Diabetic Nephropathy, Hypertension, COPD, HIV, Anemia who presented from [facility] with SOB and admitted for COPD/CHF exacerbation #ESRD on HD with fluid overload #COPD exacerbation #Hypertension #HIV #Anemia will arrange for additional dialysis today with UF as tolerated Continue Nebs as steroids as per Pulmonary Continue oral antihypertensives, expect improvement in BP with UF continue abx as per primary Will follow Trey Pereyra DO
[2018-02-10] MEDS ORDERED: POLYETHYLENE GLYCOL 3350 119 GM BTL PO ONE (15:40)
[2018-02-10] MEDS: INSULIN SLIDING SCALE (NOVOLOG) 1 VIAL SQ SCH ×2 (17:09→22:28)
[2018-02-10] MEDS: ATORVASTATIN CA 10 MG TABLET (FP) PO SCH (22:28)
[2018-02-10] MEDS: ZOLPIDEM TARTRATE 5 MG TABLET PO SCH (22:28)
[2018-02-10 23:28] VITALS: TEMP 97.7
[2018-02-11] MEDS: methylPREDNISolone NA SUCC 40 MG/1 ML VIAL IVPUSH SCH (02:48)
[2018-02-11] MEDS: hydrALAZINE HCL 50 MG TABLET (FP) PO SCH ×2 (05:44→13:50)
[2018-02-11] MEDS: INSULIN SLIDING SCALE (NOVOLOG) 1 VIAL SQ SCH ×2 (06:28→11:44)
[2018-02-11 07:08] LABS: HEMATOCRIT 26.4 % (35.4-49); HEMOGLOBIN 8.9 GM/dL (11.7-16.9); LYMPH % 5.4 % (8-40); MCH 31.6 pg (25.7-33.7); MCHC 33.8 g/dl (32.0-35.9); MEAN CELL VOLUME 93.6 fl (80-96); MEAN PLT VOLUME 8.5 fl (7.5-11.1); MONO % 3.2 % (3.8-10.2); NEUT % 91.4 % (42.8-82.8); PLATELET COUNT 189 K/MM3 (134-434); RBC 2.82 M/mm3 (4.00-5.60); RDW 21.2 % (11.9-15.9); WHITE BLOOD COUNT 9.5 K/mm3 (4.0-10.0)
[2018-02-11] MEDS: ALBUTEROL SO4 2.5/IPRATROPIUM 0.5 INH SOL 3 ML VIAL.NEB. NEB SCH ×2 (07:27→11:16)
[2018-02-11 07:35] LABS: ALBUMIN 2.5 g/dl (3.4-5.0); ANION GAP 12 (8-16); BLOOD UREA NITROGEN 40 mg/dL (7-18); CALCIUM 8.5 mg/dL (8.5-10.1); CHLORIDE 100 mmol/L (98-107); CO2 29 mmol/L (21-32); CREATININE 6.1 mg/dL (0.7-1.3); GLUCOSE,RANDOM 150 mg/dL (74-106); MAGNESIUM 1.9 mg/dL (1.8-2.4); POTASSIUM 4.4 mmol/L (3.5-5.1); SGOT/AST 20 U/L (15-37); SGPT/ALT 45 U/L (12-78); SODIUM 141 mmol/L (136-145)
[2018-02-11 07:36] LABS: ALK PHOS 136 U/L (45-117); BILIRUBIN,TOTAL 0.2 mg/dL (0.2-1.0); TOT PROT 6.4 g/dl (6.4-8.2)
[2018-02-11] MEDS ORDERED: cefTRIAXone SODIUM 1 GM VIAL ONE (09:19)
[2018-02-11] MEDS ORDERED: DEXTROSE 5%-WATER - 50 ML IVPB ONE (09:19)
[2018-02-11] MEDS: TAMSULOSIN HCL 0.4 MG CAP.ER.24H (FP) PO SCH (09:25)
[2018-02-11] MEDS: NIFEdipine E.R. 90 MG TABLET (FP) PO SCH (09:25)
[2018-02-11] MEDS ORDERED: PT OWN MED DRAWER 7, Y5N ONE (09:37)
[2018-02-11] MEDS: CEFTRIAXONE 1 GM in DEXTROSE 5%-WATER - 50 ML IVPB SCH (10:16)
[2018-02-11] MEDS: AZITHROMYCIN IVPB 500 MG in DEXTROSE 5%-WATER - 250 ML IVPB SCH (10:16)
[2018-02-11] MEDS: NICOTINE 21 MG/24 HOURS TOPICAL PATCH TD SCH (10:17)
[2018-02-11] MEDS: CITALOPRAM HYDROBROMIDE 20 MG TABLET (FP) PO SCH (10:18)
[2018-02-11] MEDS: CARVEDILOL 12.5 MG TABLET (FP) PO SCH (10:18)
[2018-02-11] MEDS: CHOLECALCIFEROL (VITAMIN D3) 1,000 UNIT TABLET (FP) PO SCH (10:18)
[2018-02-11] MEDS: FERROUS SO4 325 MG TABLET (FP) PO SCH (10:18)
[2018-02-11] MEDS: ABACAVIR SULFATE 300 MG TABLET PO SCH (10:18)
[2018-02-11] MEDS: TORSEMIDE 20 MG TABLET (FP) PO SCH (10:19)
[2018-02-11] MEDS: DOLUTEGRAVIR SODIUM 50 MG TABLET PO SCH (10:19)
[2018-02-11] MEDS: lamiVUDine 10 MG/1 ML BULK BOTTLE PO SCH (10:19)
--- NOTE | 2018-02-11 11:06 | PN ---
Progress Note, Physician History of Present Illness: pulmonary alert,ambulating,sob improved. - Current Medication List Current Medications: Active Medications Abacavir Sulfate (Ziagen -) 300 mg PO DAILY [facility] Last Admin: 02/11/18 10:18 Dose: 300 mg Albuterol/Ipratropium (Duoneb -) 1 amp NEB RQID [facility] Last Admin: 02/11/18 07:27 Dose: 1 amp Atorvastatin Calcium (Lipitor -) 10 mg PO HS [facility] Last Admin: 02/10/18 22:28 Dose: 10 mg Carvedilol (Coreg -) 12.5 mg PO BID [facility] Last Admin: 02/11/18 10:18 Dose: 12.5 mg Cholecalciferol (Vitamin D3 -) 1,000 unit PO DAILY [facility] Last Admin: 02/11/18 10:18 Dose: 1,000 unit Citalopram Hydrobromide (Celexa -) 20 mg PO DAILY [facility] Last Admin: 02/11/18 10:18 Dose: 20 mg Ferrous Sulfate (Feosol -) 325 mg PO BID [facility] Last Admin: 02/11/18 10:18 Dose: 325 mg Hydralazine HCl (Apresoline -) 50 mg PO TID [facility] Last Admin: 02/11/18 05:44 Dose: 50 mg Ceftriaxone Sodium 1 gm/ (Dextrose) 50 mls @ 100 mls/hr IVPB DAILY [facility] PRN Reason: Protocol Last Admin: 02/11/18 10:16 Dose: 100 mls/hr Azithromycin 500 mg/ Dextrose 250 mls @ 250 mls/hr IVPB DAILY [facility] Last Admin: 02/11/18 10:16 Dose: 250 mls/hr Sodium Chloride (Normal Saline -) 250 mls @ 3,000 mls/hr IV PRN PRN PRN Reason: Hypotension during Dialysis Stop: 02/11/18 13:06 Insulin Aspart (Novolog Vial Sliding Scale -) 1 vial SQ ACHS [facility] PRN Reason: Protocol Last Admin: 02/11/18 06:28 Dose: 2 units Lamivudine (Epivir Oral Solution -) 100 mg PO DAILY [facility] Last Admin: 02/11/18 10:19 Dose: 100 mg Nicotine (Nicoderm Patch -) 21 mg TD DAILY [facility] Last Admin: 02/11/18 10:17 Dose: 21 mg Nifedipine (Procardia Xl -) 90 mg PO DAILY@0900 [facility] Last Admin: 02/11/18 09:25 Dose: 90 mg Tamsulosin HCl (Flomax -) 0.4 mg PO DAILY@0830 [facility] Last Admin: 02/11/18 09:25 Dose: 0.4 mg Torsemide (Demadex -) 40 mg PO DAILY [facility] Last Admin: 02/11/18 10:19 Dose: 40 mg Zolpidem Tartrate (Ambien -) 5 mg PO HS [facility] Last Admin: 02/10/18 22:28 Dose: 5 mg - Objective Vital Signs: Vital Signs Temperature 97.7 F 02/11/18 02:00 Pulse Rate 82 02/11/18 09:26 Respiratory Rate 18 02/11/18 09:26 Blood Pressure 181/82 02/11/18 09:26 O2 Sat by Pulse Oximetry (%) 98 02/10/18 21:00 Constitutional: Yes: Well Nourished, Calm Eyes: Yes: WNL HENT: Yes: WNL Neck: Yes: WNL Cardiovascular: Yes: Regular Rate and Rhythm, S1, S2 Respiratory: Yes: Diminished Gastrointestinal: Yes: Normal Bowel Sounds, Soft Extremities: Yes: WNL Edema: No Labs: CBC, BMP 02/11/18 06:38 02/11/18 06:38 Problem List - Problems (1) ESRD (end stage renal disease) Code(s): N18.6 - END STAGE RENAL DISEASE (2) COPD exacerbation Code(s): J44.1 - CHRONIC OBSTRUCTIVE PULMONARY DISEASE W (ACUTE) EXACERBATION (3) Fluid overload Code(s): E87.70 - FLUID OVERLOAD, UNSPECIFIED Qualifiers: Hypervolemia type: unspecified Qualified Code(s): E87.70 - Fluid overload, unspecified (4) Shortness of breath Code(s): R06.02 - SHORTNESS OF BREATH (5) Chronic kidney disease Code(s): N18.9 - CHRONIC KIDNEY DISEASE, UNSPECIFIED Qualifiers: Chronic kidney disease stage: unspecified stage Qualified Code(s): N18.9 - Chronic kidney disease, unspecified (6) Anemia, chronic disease Code(s): D63.8 - ANEMIA IN OTHER CHRONIC DISEASES CLASSIFIED ELSEWHERE (7) Hypertension Code(s): I10 - ESSENTIAL (PRIMARY) HYPERTENSION (8) Renal failure Code(s): N19 - UNSPECIFIED KIDNEY FAILURE (9) Throat cancer Code(s): C14.0 - MALIGNANT NEOPLASM OF PHARYNX, UNSPECIFIED (10) HIV (human immunodeficiency virus infection) Code(s): Z21 - ASYMPTOMATIC HUMAN IMMUNODEFICIENCY VIRUS INFECTION STATUS (11) Acute respiratory failure with hypoxia and hypercapnia Code(s): J96.01 - ACUTE RESPIRATORY FAILURE WITH HYPOXIA; J96.02 - ACUTE RESPIRATORY FAILURE WITH HYPERCAPNIA Assessment/Plan IMP ACUTE HYPOXEMIC/HYPERCAPNEIC RESPIRATORY FAILURE IMPROVED CHF/FLUID OVERLOAD IMPROVED COPD ? PNEUMONIA HIV ON HAART H/O LARYNGEAL/THROAT CA S/P RT HTN ESRD ON HD PLAN HD PER RENAL O2 NIPPV NEEDED F/U CHEST X-RAYS ABX PER ID D/C MEDROL DR MARK Problem List - Problems (1) ESRD (end stage renal disease) Code(s): N18.6 - END STAGE RENAL DISEASE (2) COPD exacerbation Code(s): J44.1 - CHRONIC OBSTRUCTIVE PULMONARY DISEASE W (ACUTE) EXACERBATION (3) Fluid overload Code(s): E87.70 - FLUID OVERLOAD, UNSPECIFIED Qualifiers: Hypervolemia type: unspecified Qualified Code(s): E87.70 - Fluid overload, unspecified (4) Shortness of breath Code(s): R06.02 - SHORTNESS OF BREATH (5) Chronic kidney disease Code(s): N18.9 - CHRONIC KIDNEY DISEASE, UNSPECIFIED Qualifiers: Chronic kidney disease stage: unspecified stage Qualified Code(s): N18.9 - Chronic kidney disease, unspecified (6) Anemia, chronic disease Code(s): D63.8 - ANEMIA IN OTHER CHRONIC DISEASES CLASSIFIED ELSEWHERE (7) Hypertension Code(s): I10 - ESSENTIAL (PRIMARY) HYPERTENSION (8) Renal failure Code(s): N19 - UNSPECIFIED KIDNEY FAILURE (9) Throat cancer Code(s): C14.0 - MALIGNANT NEOPLASM OF PHARYNX, UNSPECIFIED (10) HIV (human immunodeficiency virus infection) Code(s): Z21 - ASYMPTOMATIC HUMAN IMMUNODEFICIENCY VIRUS INFECTION STATUS (11) Acute respiratory failure with hypoxia and hypercapnia Code(s): J96.01 - ACUTE RESPIRATORY FAILURE WITH HYPOXIA; J96.02 - ACUTE RESPIRATORY FAILURE WITH HYPERCAPNIA
--- NOTE | 2018-02-11 11:08 | PN ---
Progress Note, Physician History of Present Illness: Shortness of breath, orthopnea, PND improving with ultrafiltration and BP control. - Current Medication List Current Medications: Active Medications Abacavir Sulfate (Ziagen -) 300 mg PO DAILY [facility] Last Admin: 02/11/18 10:18 Dose: 300 mg Albuterol/Ipratropium (Duoneb -) 1 amp NEB RQID [facility] Last Admin: 02/11/18 07:27 Dose: 1 amp Atorvastatin Calcium (Lipitor -) 10 mg PO HS [facility] Last Admin: 02/10/18 22:28 Dose: 10 mg Carvedilol (Coreg -) 12.5 mg PO BID [facility] Last Admin: 02/11/18 10:18 Dose: 12.5 mg Cholecalciferol (Vitamin D3 -) 1,000 unit PO DAILY [facility] Last Admin: 02/11/18 10:18 Dose: 1,000 unit Citalopram Hydrobromide (Celexa -) 20 mg PO DAILY [facility] Last Admin: 02/11/18 10:18 Dose: 20 mg Ferrous Sulfate (Feosol -) 325 mg PO BID [facility] Last Admin: 02/11/18 10:18 Dose: 325 mg Hydralazine HCl (Apresoline -) 50 mg PO TID [facility] Last Admin: 02/11/18 05:44 Dose: 50 mg Ceftriaxone Sodium 1 gm/ (Dextrose) 50 mls @ 100 mls/hr IVPB DAILY [facility] PRN Reason: Protocol Last Admin: 02/11/18 10:16 Dose: 100 mls/hr Azithromycin 500 mg/ Dextrose 250 mls @ 250 mls/hr IVPB DAILY [facility] Last Admin: 02/11/18 10:16 Dose: 250 mls/hr Sodium Chloride (Normal Saline -) 250 mls @ 3,000 mls/hr IV PRN PRN PRN Reason: Hypotension during Dialysis Stop: 02/11/18 13:06 Insulin Aspart (Novolog Vial Sliding Scale -) 1 vial SQ ACHS [facility] PRN Reason: Protocol Last Admin: 02/11/18 06:28 Dose: 2 units Lamivudine (Epivir Oral Solution -) 100 mg PO DAILY [facility] Last Admin: 02/11/18 10:19 Dose: 100 mg Nicotine (Nicoderm Patch -) 21 mg TD DAILY [facility] Last Admin: 02/11/18 10:17 Dose: 21 mg Nifedipine (Procardia Xl -) 90 mg PO DAILY@0900 [facility] Last Admin: 02/11/18 09:25 Dose: 90 mg Tamsulosin HCl (Flomax -) 0.4 mg PO DAILY@0830 [facility] Last Admin: 02/11/18 09:25 Dose: 0.4 mg Torsemide (Demadex -) 40 mg PO DAILY [facility] Last Admin: 02/11/18 10:19 Dose: 40 mg Zolpidem Tartrate (Ambien -) 5 mg PO HS [facility] Last Admin: 02/10/18 22:28 Dose: 5 mg - Objective Vital Signs: Vital Signs Temperature 97.7 F 02/11/18 02:00 Pulse Rate 82 02/11/18 09:26 Respiratory Rate 18 02/11/18 09:26 Blood Pressure 181/82 02/11/18 09:26 O2 Sat by Pulse Oximetry (%) 98 02/10/18 21:00 Constitutional: Yes: No Distress, Calm Neck: Yes: Supple Cardiovascular: Yes: Regular Rate and Rhythm Respiratory: Yes: Regular, Diminished Gastrointestinal: Yes: Normal Bowel Sounds, Soft Edema: No Labs: CBC, BMP 02/11/18 06:38 02/11/18 06:38 - ....Imaging Chest X-ray: Report Reviewed (Improved CHF and effusions) Problem List - Problems (1) Acute on chronic diastolic (congestive) heart failure Code(s): I50.33 - ACUTE ON CHRONIC DIASTOLIC (CONGESTIVE) HEART FAILURE (2) Hypertensive cardiomegaly with heart failure Code(s): I11.0 - HYPERTENSIVE HEART DISEASE WITH HEART FAILURE (3) Acute respiratory failure with hypoxia and hypercapnia Code(s): J96.01 - ACUTE RESPIRATORY FAILURE WITH HYPOXIA; J96.02 - ACUTE RESPIRATORY FAILURE WITH HYPERCAPNIA (4) ESRD (end stage renal disease) Code(s): N18.6 - END STAGE RENAL DISEASE (5) Fluid overload Code(s): E87.70 - FLUID OVERLOAD, UNSPECIFIED Qualifiers: Hypervolemia type: unspecified Qualified Code(s): E87.70 - Fluid overload, unspecified (6) Shortness of breath Code(s): R06.02 - SHORTNESS OF BREATH (7) Anemia Code(s): D64.9 - ANEMIA, UNSPECIFIED Qualifiers: Anemia type: due to chronic kidney disease Chronic kidney disease stage: on chronic dialysis Qualified Code(s): N18.6 - End stage renal disease; D63.1 - Anemia in chronic kidney disease; D63.1 - Anemia in chronic kidney disease; Z99.2 - Dependence on renal dialysis; Z99.2 - Dependence on renal dialysis; Z99.2 - Dependence on renal dialysis; Z99.2 - Dependence on renal dialysis (8) Diabetes 1.5, managed as type 2 Code(s): E13.9 - OTHER SPECIFIED DIABETES MELLITUS WITHOUT COMPLICATIONS (9) Hyperlipidemia Code(s): E78.5 - HYPERLIPIDEMIA, UNSPECIFIED Qualifiers: Hyperlipidemia type: pure hypercholesterolemia Qualified Code(s): E78.00 - Pure hypercholesterolemia, unspecified; E78.0 - Pure hypercholesterolemia (10) Hypertensive urgency Code(s): I16.0 - HYPERTENSIVE URGENCY (11) HIV (human immunodeficiency virus infection) Code(s): Z21 - ASYMPTOMATIC HUMAN IMMUNODEFICIENCY VIRUS INFECTION STATUS Assessment/Plan 02/05/2018 Normal biventricular size and fxn, mod AR, mild MR 1. Acute on chronic diastolic failure in context of hypertensive urgency improving 2. Hypertensive cardiomyopathy 3. ESRD->HD 4. HIV on HAART 5. COPD not in exacerbation 6. Anemia of CKD P:1. Volume removal via UF per renal 2. Empiric abx, BS, O2, rapid steroid taper 3. Increase carvedilol 25 bid, procardia XL 90 qd and hydralazine 50 tid with uptitration as tolerated, add ARB if agreeable with renal, continue Demadex 40 qd, Lipitor 10 qd
[2018-02-11] MEDS ORDERED: CARVEDILOL 25 MG TABLET (FP) PO SCH (11:12)
[2018-02-11] MEDS ORDERED: CARVEDILOL 12.5 MG TABLET (FP) PO ONE (11:30)
--- NOTE | 2018-02-11 12:29 | DS ---
Physical Exam: SUBJECTIVE: Patient seen and examined. He feels well, denies COX, blurry vision, SOB. OBJECTIVE: Vital Signs Period Temp Pulse Resp BP Sys/Montes Pulse Ox Last 24 Hr 97.7 F-98.8 F 76-91 18-22 149-183/63-99 94-98 PE Neuro: Alert, awake,cn 2-12intact Pulm: diminished l base, r base course CV: s1 s2 rrr no mrg Abd: s nt nd + bs Ext: LUE AVF + thrill, no le edema Laboratory Results - last 24 hr 02/10/18 02/10/18 02/10/18 11:30 12:32 17:01 WBC RBC Hgb Hct MCV MCH MCHC RDW Plt Count MPV Neutrophils % Lymphocytes % Monocytes % Eosinophils % Basophils % Sodium Potassium Chloride Carbon Dioxide Anion Gap BUN Creatinine Creat Clearance w eGFR POC Glucometer 202 185 Random Glucose Hemoglobin A1c % 4.9 D Calcium Magnesium Total Bilirubin AST ALT Alkaline Phosphatase Total Protein Albumin 02/11/18 02/11/18 02/11/18 06:38 06:38 11:08 WBC 9.5 D RBC 2.82 L Hgb 8.9 L Hct 26.4 L MCV 93.6 MCH 31.6 MCHC 33.8 RDW 21.2 H Plt Count 189 MPV 8.5 Neutrophils % 91.4 H Lymphocytes % 5.4 L D Monocytes % 3.2 L Eosinophils % 0.0 Basophils % 0.0 Sodium 141 Potassium 4.4 Chloride 100 Carbon Dioxide 29 Anion Gap 12 BUN 40 H Creatinine 6.1 H Creat Clearance w eGFR 9.31 POC Glucometer 284 Random Glucose 150 H D Hemoglobin A1c % Calcium 8.5 Magnesium 1.9 Total Bilirubin 0.2 AST 20 D ALT 45 D Alkaline Phosphatase 136 H Total Protein 6.4 Albumin 2.5 L HOSPITAL COURSE: Date of Admission:02/09/18 Date of Discharge: 02/11/18 Minutes to complete discharge: 37 Discharge Summary Reason For Visit: SOB,ESRD,HYPERVOLEMIA,CHRONIC OBS PULM DISEASE Current Active Problems Acute on chronic diastolic (congestive) heart failure (Acute) Acute respiratory failure with hypoxia and hypercapnia (Acute) COPD exacerbation (Acute) ESRD (end stage renal disease) (Acute) Fluid overload (Acute) Hypertensive cardiomegaly with heart failure (Acute) Shortness of breath (Acute) Chronic kidney disease (Chronic) Hospital Course: Initial Hospital Course: 67 year old male with a pmhx of HTN, HLD, DM II, ESRD with AVF placed earlier in the month, HIV+ (on HAART), anemia, and throat cancer. Pt had received his first dialysis on his last admission which was 1 week ago and was supposed to get dialysis again today at his new outpatient center, but came to [place] when he was feeling short of breath and weak. Imaging: Echo: moderate aortic regurg Subsequent Hospital Course/Progress Note/DC Summary: Plan: 1. SOB - Due to pleural effusion vs ? C. PNA - HD with UF, next HD scheduled Friday at [facility] - Home with ceftin for 4days for total 7 days course, azithro 500mg x3 days - s/p IV solumedrol - Home with toresemide 40mg daily 2. HTN Urgency - Change atenolol to Coreg 25mg BID - Hydralazine 50mg TID - Procardia xl 90mg daily 3. Acute on chronic diastolic heart failure - Home with toresemide - HD per Renal 4. DM II - Resume home Glipizide - Hgb a1c wnl 5. ESRD on HD - [facility] on Friday 6. HIV + - Resume HAART 7. Throat cancer, chronic s/p treatment, pt has appt to see his oncologist - has appointment Dispo: - Home with HD on Friday, continue meds as listed Condition: Stable - Instructions Diet, Activity, Other Instructions: Please return to the ED for any new, persistent, or worsening symptoms. Follow up with your PCP in 1 week Continue new blood pressure medication as directed Continue antibiotics for 4 more days Your next HD is this Friday at [facility] Referrals: Samira Rolle MD [Primary Care Provider] - Trey Pereyra MD [Staff Physician] - Disposition: HOME - Home Medications Comprehensive Discharge Medication List: Ambulatory Orders Abacavir Sulfate [Abacavir] 300 mg PO DAILY 02/04/18 Cholecalciferol (Vitamin D3) [Vitamin D3] 1,000 unit PO DAILY 02/04/18 Citalopram Hydrobromide [Citalopram HBr] 20 mg PO DAILY 02/04/18 Dolutegravir Sodium [Tivicay] 50 mg PO DAILY 02/04/18 Glipizide [Glipizide ER] 0 mg PO BID 02/04/18 Lamivudine [Epivir Hbv] 100 mg PO DAILY 02/04/18 Pravastatin Sodium [Pravachol] 40 mg PO DAILY 02/04/18 Tamsulosin HCl [Flomax -] 0.4 mg PO DAILY 02/04/18 Zolpidem Tartrate [Ambien] 5 mg PO HS MDD mmd1 02/04/18 Ferrous Sulfate [Feosol] 325 mg PO BID #60 tab 02/06/18 Hydralazine HCl 25 mg PO DAILY 30 Days #30 tablet 02/06/18 Nicotine Patch [Nicoderm Patch -] 21 mg TD DAILY #30 patch 02/06/18 Nifedipine ER [Procardia XL -] 90 mg PO DAILY@0900 #60 tab.er.24 02/06/18 Torsemide [Demadex -] 40 mg PO DAILY #60 tablet 02/06/18 Nifedipine ER [Procardia XL -] 90 mg PO DAILY@0900 #30 tab.er.24 02/10/18 hydrALAZINE HCL [Apresoline -] 50 mg PO TID #90 tablet 02/10/18 Albuterol 2.5/Ipratropium 0.5 [Duoneb -] 1 amp NEB RQID PRN #20 amp 02/11/18 Carvedilol [Coreg -] 25 mg PO BID #60 tablet 02/11/18 Cefuroxime Axetil [Ceftin -] 500 mg PO DAILY #4 tablet 02/11/18 Nebulizer Accessories [Adult Aerosol Mask] 1 each MC Q6H PRN #1 each 02/11/18 Nebulizer Accessories [Aeroneb Go] 1 each MC Q4H PRN #30 each 02/11/18 This patient is new to me today: Yes Date on this admission: 02/11/18 Emergency Visit: Yes ED Registration Date: 02/09/18 Care time: The patient presented to the Emergency Department on the above date and was hospitalized for further evaluation of their emergent condition. Critical Care patient: No - Discharge Referral Referred to [facility] No
--- NOTE | 2018-02-11 12:40 | PN ---
Progress Note, Physician History of Present Illness: Feeling much better seated in bed eating lunch Breathing non-labored on nasal cannula O2 No c/o fever/ chills - Current Medication List Current Medications: Active Medications Abacavir Sulfate (Ziagen -) 300 mg PO DAILY [facility] Last Admin: 02/11/18 10:18 Dose: 300 mg Albuterol/Ipratropium (Duoneb -) 1 amp NEB RQID [facility] Last Admin: 02/11/18 11:16 Dose: Not Given Atorvastatin Calcium (Lipitor -) 10 mg PO HS [facility] Last Admin: 02/10/18 22:28 Dose: 10 mg Carvedilol (Coreg -) 25 mg PO BID [facility] Cholecalciferol (Vitamin D3 -) 1,000 unit PO DAILY [facility] Last Admin: 02/11/18 10:18 Dose: 1,000 unit Citalopram Hydrobromide (Celexa -) 20 mg PO DAILY [facility] Last Admin: 02/11/18 10:18 Dose: 20 mg Ferrous Sulfate (Feosol -) 325 mg PO BID [facility] Last Admin: 02/11/18 10:18 Dose: 325 mg Hydralazine HCl (Apresoline -) 50 mg PO TID [facility] Last Admin: 02/11/18 05:44 Dose: 50 mg Ceftriaxone Sodium 1 gm/ (Dextrose) 50 mls @ 100 mls/hr IVPB DAILY [facility] PRN Reason: Protocol Last Admin: 02/11/18 10:16 Dose: 100 mls/hr Azithromycin 500 mg/ Dextrose 250 mls @ 250 mls/hr IVPB DAILY [facility] Last Admin: 02/11/18 10:16 Dose: 250 mls/hr Sodium Chloride (Normal Saline -) 250 mls @ 3,000 mls/hr IV PRN PRN PRN Reason: Hypotension during Dialysis Stop: 02/11/18 13:06 Insulin Aspart (Novolog Vial Sliding Scale -) 1 vial SQ ACHS [facility] PRN Reason: Protocol Last Admin: 02/11/18 11:44 Dose: 6 units Lamivudine (Epivir Oral Solution -) 100 mg PO DAILY [facility] Last Admin: 02/11/18 10:19 Dose: 100 mg Nicotine (Nicoderm Patch -) 21 mg TD DAILY [facility] Last Admin: 02/11/18 10:17 Dose: 21 mg Nifedipine (Procardia Xl -) 90 mg PO DAILY@0900 [facility] Last Admin: 02/11/18 09:25 Dose: 90 mg Tamsulosin HCl (Flomax -) 0.4 mg PO DAILY@0830 [facility] Last Admin: 02/11/18 09:25 Dose: 0.4 mg Torsemide (Demadex -) 40 mg PO DAILY [facility] Last Admin: 02/11/18 10:19 Dose: 40 mg Zolpidem Tartrate (Ambien -) 5 mg PO HS [facility] Last Admin: 02/10/18 22:28 Dose: 5 mg - Objective Vital Signs: Vital Signs Temperature 97.7 F 02/11/18 02:00 Pulse Rate 82 02/11/18 11:10 Respiratory Rate 18 02/11/18 11:10 Blood Pressure 168/95 02/11/18 11:10 O2 Sat by Pulse Oximetry (%) 96 02/11/18 09:00 Constitutional: Yes: No Distress Eyes: Yes: Conjunctiva Clear Cardiovascular: Yes: Regular Rate and Rhythm, S1, S2 Respiratory: Yes: CTA Bilaterally Gastrointestinal: Yes: Normal Bowel Sounds, Soft. No: Tenderness Edema: Yes Labs: CBC, BMP 02/11/18 06:38 02/11/18 06:38 Assessment/Plan Pneumonia Volume overload ESRD HIV + Substitute po ceftin additional 7d
[2018-02-11] MEDS ORDERED: CEFUROXIME AXETIL 250 MG TABLET PO SCH (12:45)
[2018-02-11 13:54] VITALS: BP 141/71; PULSE 83
--- NOTE | 2018-02-11 17:42 | PN ---
Progress Note (short form) - Note Progress Note: Renal Consult for ESRD on HD Pt seen and examined at the bedside awake and alert no acute complaints feels much better s/p dialysis yesterday Vital Signs Temperature 97.7 F 02/11/18 02:00 Pulse Rate 83 02/11/18 13:53 Respiratory Rate 18 02/11/18 11:10 Blood Pressure 141/71 02/11/18 13:53 O2 Sat by Pulse Oximetry (%) 96 02/11/18 09:00 Intake & Output 02/08/18 02/09/18 02/10/18 02/11/18 23:59 23:59 23:59 23:59 Intake Total 730 380 620 Output Total 450 500 0 Balance 280 -120 620 Weight 82.554 kg 77.655 kg 77.621 kg NAD awake and alert RRR, No M/R Dec Bs at lung bases soft NT/ND No LE edema CBC, BMP 02/11/18 06:38 02/11/18 06:38 67 year old gentleman with PMHx of ESRD (started on dialysis last week), Diabetic Nephropathy, Hypertension, COPD, HIV, Anemia who presented from [facility] with SOB and admitted for COPD/CHF exacerbation #ESRD on HD with fluid overload #COPD exacerbation #Hypertension #HIV #Anemia clinically improved s/p dialysis and IV steroids Weight improved from 82 to 77 kg Continue Nifedpine, agree with starting ARB Low salt diet Steroid taper as per pulmonary Pt to start outpatient dialysis this Friday at 2:[address] [facility] Will follow Trey Pereyra DO
== END 2018-02-11 14:35 | disposition home or self-care (01) | DRG 291 ==
LOC: JER 09:38 → JERBED 12:23 → J4S 13:28
PROVIDERS: ADMIT Internal Medicine; ATTEND Nurse Practitioner Acute Care
PROC: 5A1D70Z Performance of Urinary Filtration, Intermittent, Less than 6 Hours Per Day (ICD-10-PCS; principal; 2018-02-10)
PROC: 5A1D70Z Performance of Urinary Filtration, Intermittent, Less than 6 Hours Per Day (ICD-10-PCS; 2018-02-10)
DX: I13.2 Hypertensive heart and chronic kidney disease with heart failure and with stage 5 chronic kidney disease, or end stage renal disease (principal); J96.02 Acute respiratory failure with hypercapnia; J96.01 Acute respiratory failure with hypoxia; N18.6 End stage renal disease; I50.33 Acute on chronic diastolic (congestive) heart failure; J98.11 Atelectasis; J44.1 Chronic obstructive pulmonary disease with (acute) exacerbation; E78.5 Hyperlipidemia, unspecified; D64.9 Anemia, unspecified; I77.810 Thoracic aortic ectasia; K21.9 Gastro-esophageal reflux disease without esophagitis; K59.00 Constipation, unspecified; I16.0 Hypertensive urgency; N40.0 Benign prostatic hyperplasia without lower urinary tract symptoms; E11.319 Type 2 diabetes mellitus with unspecified diabetic retinopathy without macular edema; M54.5 Low back pain; C14.0 Malignant neoplasm of pharynx, unspecified; I42.8 Other cardiomyopathies; F17.200 Nicotine dependence, unspecified, uncomplicated; E87.70 Fluid overload, unspecified; D63.1 Anemia in chronic kidney disease; E11.22 Type 2 diabetes mellitus with diabetic chronic kidney disease; Z99.2 Dependence on renal dialysis; Z21 Asymptomatic human immunodeficiency virus [HIV] infection status
CPT/HCPCS: 36415; 36600; 71045-TC-FY; 80053; 82550; 82553; 82803; 82962; 83036; 83735; 83880; 84484; 85025; 87040; 87070; 87205; 93005; 93010; 94640; 94761; 99284-25; J0885; J1644; J7620

== ENCOUNTER 2018-02-23 10:52 | Inpatient (IN) | payer OTHER ==
[2018-02-23 11:16] VITALS: BMI 23.7
--- NOTE | 2018-02-23 11:25 | PDOC ---
History of Present Illness - General Chief Complaint: Blood Transfusion Stated Complaint: BLOOD TRANSFUSION Time Seen by Provider: 02/23/18 11:25 - History of Present Illness Initial Comments: 02/23/18 11:43 Mr. 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 Mr. Galarza reports that he was instructed to present to ER on friday but decided to wait. He had a scheduled appointment w/ his vascular surgeon (Dr. Lan) this AM who convinced him to present to ER. The patient denies chest pain, shortness of breath, headache and dizziness. Denies fever, chills, nausea, vomit, diarrhea and constipation. Denies dysuria, frequency, urgency and hematuria. Allergies: [facility] Multifold Operator Dr. Trey Pereyra. Past History - Past Medical History Allergies/Adverse Reactions: Allergies Allergy/AdvReac Type Severity Reaction Status Date / Time No Known Drug Allergies Allergy Verified 02/23/18 11:13 Home Medications: Ambulatory Orders Abacavir Sulfate [Abacavir] 300 mg PO DAILY 02/04/18 Cholecalciferol (Vitamin D3) [Vitamin D3] 1,000 unit PO DAILY 02/04/18 Citalopram Hydrobromide [Citalopram HBr] 20 mg PO DAILY 02/04/18 Dolutegravir Sodium [Tivicay] 50 mg PO DAILY 02/04/18 Glipizide [Glipizide ER] 0 mg PO BID 02/04/18 Lamivudine [Epivir Hbv] 100 mg PO DAILY 02/04/18 Pravastatin Sodium [Pravachol] 40 mg PO DAILY 02/04/18 Tamsulosin HCl [Flomax -] 0.4 mg PO DAILY 02/04/18 Zolpidem Tartrate [Ambien] 5 mg PO HS MDD mmd1 02/04/18 Ferrous Sulfate [Feosol] 325 mg PO BID #60 tab 02/06/18 Hydralazine HCl 25 mg PO DAILY 30 Days #30 tablet 02/06/18 Nicotine Patch [Nicoderm Patch -] 21 mg TD DAILY #30 patch 02/06/18 Nifedipine ER [Procardia XL -] 90 mg PO DAILY@0900 #60 tab.er.24 02/06/18 Torsemide [Demadex -] 40 mg PO DAILY #60 tablet 02/06/18 hydrALAZINE HCL [Apresoline -] 50 mg PO TID #90 tablet 02/10/18 Albuterol 2.5/Ipratropium 0.5 [Duoneb -] 1 amp NEB RQID PRN #20 amp 02/11/18 Carvedilol [Coreg -] 25 mg PO BID #60 tablet 02/11/18 Cefuroxime Axetil [Ceftin -] 500 mg PO DAILY #4 tablet 02/11/18 Nebulizer Accessories [Aeroneb Go] 1 each MC Q4H PRN #30 each 02/11/18 Anemia: Yes (IRON DEFICIENCY.) Asthma: Yes Cancer: Yes (laryngeal / throat) Cardiac Disorders: Yes (ANGINA.) CVA: No COPD: No CHF: No DVT: No Dementia: No Diabetes: Yes Dialysis: Yes (esrd, lt arm fistula) GI Disorders: No Disorders: Yes HTN: Yes Hypercholesterolemia: Yes Liver Disease: No Psychiatric Problems: Yes (DEPRESSION.) Seizures: No Thyroid Disease: Yes - Surgical History Abdominal Surgery: Yes (bilaterl inguinal hernia repair and undescend testis left) Appendectomy: No Cardiac Surgery: No Cholecystectomy: No Lung Surgery: No Neurologic Surgery: No Orthopedic Surgery: No - Reproductive History Testicular Surgery: No - Immunization History Immunization Up to Date: Yes - Suicide/Smoking/Psychosocial Hx Smoking History: Current every day smoker Have you smoked in the past 12 months: Yes Number of Cigarettes Smoked Daily: 10 Cigars Per Day: 0 Information on smoking cessation initiated: No 'Breaking Loose' booklet given: 01/09/18 Hx Alcohol Use: No Drug/Substance Use Hx: No Substance Use Type: None Hx Substance Use Treatment: Yes Review of Systems - Review of Systems Comments:: 02/23/18 11:52 GENERAL/CONSTITUTIONAL: +Generalized weakness. No fever or chills. HEAD, EYES, EARS, NOSE AND THROAT: No change in vision. No ear pain or discharge. No sore throat. CARDIOVASCULAR: No chest pain or shortness of breath RESPIRATORY: No cough, wheezing, or hemoptysis. GASTROINTESTINAL: No nausea, vomiting, diarrhea or constipation. GENITOURINARY: No dysuria, frequency, or change in urination. MUSCULOSKELETAL: No joint or muscle swelling or pain. No neck or back pain. SKIN: No rash NEUROLOGIC: No headache, vertigo, loss of consciousness, or change in strength/ sensation. ENDOCRINE: No increased thirst. No abnormal weight change HEMATOLOGIC/LYMPHATIC: No anemia, easy bleeding, or history of blood clots. ALLERGIC/IMMUNOLOGIC: No hives or skin allergy. *Physical Exam - Vital Signs Last Vital Signs Temp Pulse Resp BP Pulse Ox 97.5 F L 64 16 117/54 97 02/23/18 11:13 02/23/18 11:13 02/23/18 11:13 02/23/18 11:13 02/23/18 11:13 - Physical Exam Comments: 02/23/18 11:52 GENERAL: Awake, alert, and fully oriented, in no acute distress HEAD: No signs of trauma, normocephalic, atraumatic EYES: PERRLA, EOMI, sclera anicteric, conjunctiva clear ENT: Auricles normal inspection, hearing grossly normal, nares patent, oropharynx clear without exudates. Moist mucosa NECK: Normal ROM, supple, no lymphadenopathy, JVD, or masses LUNGS: No distress, speaks full sentences, clear to auscultation bilaterally HEART: Regular rate and rhythm, normal S1 and S2, no murmurs, rubs or gallops, peripheral pulses normal and equal bilaterally. ABDOMEN: Soft, nontender, normoactive bowel sounds. No guarding, no rebound. No masses EXTREMITIES: Normal inspection, Normal range of motion, no edema. No clubbing or cyanosis. NEUROLOGICAL: Cranial nerves II through XII grossly intact. Normal speech, normal gait, no focal sensorimotor deficits SKIN: Warm, Dry, normal turgor, no rashes or lesions noted. ED Treatment Course - LABORATORY CBC & Chemistry Diagram: 02/23/18 12:15 02/23/18 12:04 Medical Decision Making - Medical Decision Making 02/23/18 12:35 Mr. Galarza is a 67 yo male w/ pmh as described who presents for evaluation of asymptomatic anemia noted at dialysis clinic friday. Patient is due for dialysis but has not received dialysis today. 02/23/18 16:34 Patient noted to be anemic as below. Discussed patient with shell shop supervisor who would like patient admitted for dialysis and transfusion. Discussed patient with inpatient team who will admit accordingly. 1 unit PRBC's ordered. *DC/Admit/Observation/Transfer Diagnosis at time of Disposition: CKD (chronic kidney disease) requiring chronic dialysis Anemia Qualifiers: Anemia type: unspecified type Qualified Code(s): D64.9 - Anemia, unspecified - Discharge Dispostion Admit: Yes - Referrals Referrals: Samira Rolle MD [Primary Care Provider] - - Patient Instructions - Post Discharge Activity
--- NOTE | 2018-02-23 11:26 | PDOC ---
Attending Attestation - HPI HPI: 02/23/18 11:59 The patient is a 67 year old male with a significant PMH of anemia, laryngeal CA (s/p radiation), ESRD (dialysis MWF), HIV, HTN, and hyperlipidemia who presents to the emergency department for evaluation of a blood transfusion. The patient states he had labs drawn at dialysis last Friday which showed a low H&H , and was prompted to go to the ED. He states going to Dr. Gann office this morning who urged him to present to the ED today. The patient denies chest pain or shortness of breath. He denies fevers or chills. Allergies: NKDA PCP: Dr. Workman Renal: Dr. Alin Lan <Catrachito Joshi - Last Filed: 02/23/18 11:59> - Resident Resident Name: AwaislawsonBraden - ED Attending Attestation I have performed the following: I have examined & evaluated the patient, The case was reviewed & discussed with the resident, I agree w/resident's findings & plan, Exceptions are as noted - Physicial Exam PE: GENERAL: Awake, alert, and fully oriented, in no acute distress HEAD: No signs of trauma EYES: PERRLA, EOMI, sclera anicteric, conjunctiva clear ENT: Auricles normal inspection, hearing grossly normal, nares patent, oropharynx clear without exudates. Moist mucosa NECK: Normal ROM, supple, no lymphadenopathy, JVD, or masses LUNGS: Breath sounds equal, clear to auscultation bilaterally. No wheezes, and no crackles HEART: Regular rate and rhythm, normal S1 and S2, no murmurs, rubs or gallops ABDOMEN: Soft, nontender, normoactive bowel sounds. No guarding, no rebound. No masses EXTREMITIES: L upper arm with AVF +thrill. Remainder of extremities with normal range of motion, no edema. No clubbing or cyanosis. No cords, erythema, or tenderness NEUROLOGICAL: Cranial nerves II through XII grossly intact. Normal speech, normal gait SKIN: Warm, Dry, normal turgor, no rashes or lesions noted. - Medical Decision Making Pt with history of ESRD on HD presents with anemia, sent by Dr. Lan as he may require transfusion. Asymptomatic at present, but he has been having recent fatigue/weakness. <Nga Garcia - Last Filed: 02/23/18 13:35>
[2018-02-23 12:23] LABS: BASO % 0.5 % (0-2.0); EOS % 0.4 % (0-4.5); HEMATOCRIT 22.5 % (35.4-49); HEMOGLOBIN 7.3 GM/dL (11.7-16.9); LYMPH % 12.8 % (8-40); MCH 31.6 pg (25.7-33.7); MCHC 32.6 g/dl (32.0-35.9); MEAN PLT VOLUME 9.1 fl (7.5-11.1); MONO % 9.1 % (3.8-10.2); NEUT % 77.2 % (42.8-82.8); PLATELET COUNT 209 K/MM3 (134-434); RBC 2.32 M/mm3 (4.00-5.60); RDW 20.7 % (11.9-15.9); RETICULOCYTES 2.94 % (0.5-1.5); WHITE BLOOD COUNT 5.6 K/mm3 (4.0-10.0)
[2018-02-23 12:44] LABS: INR 1.19 (0.82-1.09); PROTHROMBIN TIME (PATIENT) 13.5 SEC (9.7-13.0)
[2018-02-23 12:57] LABS: ALBUMIN 2.3 g/dl (3.4-5.0); ANION GAP 8 (8-16); BILIRUBIN,TOTAL 0.3 mg/dL (0.2-1.0); BLOOD UREA NITROGEN 51 mg/dL (7-18); CALCIUM 7.9 mg/dL (8.5-10.1); CHLORIDE 108 mmol/L (98-107); CO2 24 mmol/L (21-32); GLUCOSE,RANDOM 88 mg/dL (74-106); SGPT/ALT 25 U/L (12-78); SODIUM 140 mmol/L (136-145); TOT PROT 6.1 g/dl (6.4-8.2)
[2018-02-23 12:58] LABS: ALK PHOS 149 U/L (45-117)
[2018-02-23 13:03] LABS: POTASSIUM 4.8 mmol/L (3.5-5.1)
[2018-02-23 13:04] LABS: CREATININE 9.9 mg/dL (0.7-1.3); LDH 266 U/L (87-241); SGOT/AST 22 U/L (15-37)
[2018-02-23] MEDS ORDERED: EPOETIN ALFA 20,000 UNIT/1 ML VIAL IVPUSH ONE ×2 (15:58→22:00)
--- NOTE | 2018-02-23 18:25 | EKG ---
Test Reason : Blood Pressure : / mmHG Vent. Rate : 065 BPM Atrial Rate : 065 BPM P-R Int : 144 ms QRS Dur : 100 ms QT Int : 436 ms P-R-T Axes : 047 034 051 degrees QTc Int : 453 ms NORMAL SINUS RHYTHM POSSIBLE LEFT ATRIAL ENLARGEMENT BORDERLINE ECG WHEN COMPARED WITH ECG OF 09-FEB-2018 09:34, NO SIGNIFICANT CHANGE WAS FOUND Confirmed by KAIT TERRAZAS MD ([id number]) on 02/23/2018 6:25:19 PM Referred By: Confirmed By:KAIT TERRAZAS MD
--- NOTE | 2018-02-23 19:10 | CONSULT ---
Consult - text type - Consultation Consultation Note: Renal Consult for ESRD on HD This is a 67 year old AA gentleman with PMhx of ESRD on Hd secondary to diabetic nephrpathy, Hypertension, HIV, Largenal Ca s/p radiation who presented with symptomatic Anemia. Pt last had dialysis on Friday and was told that he needed a blood transfusion. Denies any SOB, chest pain, abd pain. PMhx: as above Allergies: NKDA Family Hx: NC Social Hx" + smoker ROS: as per HPI Home Medications Medication Instructions Recorded Abacavir Sulfate [Abacavir] 300 mg PO DAILY 02/04/18 Cholecalciferol (Vitamin D3) 1,000 unit PO DAILY 02/04/18 [Vitamin D3] Citalopram Hydrobromide 20 mg PO DAILY 02/04/18 [Citalopram HBr] Dolutegravir Sodium [Tivicay] 50 mg PO DAILY 02/04/18 Glipizide [Glipizide ER] 0 mg PO BID 02/04/18 Lamivudine [Epivir Hbv] 100 mg PO DAILY 02/04/18 Pravastatin Sodium [Pravachol] 40 mg PO DAILY 02/04/18 Tamsulosin HCl [Flomax -] 0.4 mg PO DAILY 02/04/18 Zolpidem Tartrate [Ambien] 5 mg PO HS MDD mmd1 02/04/18 Ferrous Sulfate [Feosol] 325 mg PO BID #60 tab 02/06/18 Nifedipine ER [Procardia XL -] 90 mg PO DAILY@0900 #60 tab.er.24 02/06/18 Torsemide [Demadex -] 40 mg PO DAILY #60 tablet 02/06/18 hydrALAZINE HCL [Apresoline -] 50 mg PO TID #90 tablet 02/10/18 Albuterol 2.5/Ipratropium 0.5 1 amp NEB RQID PRN #20 amp 02/11/18 [Duoneb -] Carvedilol [Coreg -] 25 mg PO BID #60 tablet 02/11/18 Cefuroxime Axetil [Ceftin -] 500 mg PO DAILY #4 tablet 02/11/18 Vital Signs Temperature 98 F 02/23/18 18:57 Pulse Rate 70 02/23/18 18:57 Respiratory Rate 20 02/23/18 18:57 Blood Pressure 160/72 02/23/18 18:57 O2 Sat by Pulse Oximetry (%) 94 L 02/23/18 17:56 Intake & Output 02/20/18 02/21/18 02/22/18 02/23/18 23:59 23:59 23:59 23:59 Weight 81.647 kg NAD awake and alert RRR, NO M/R CTA soft NT/ND No LE edema left arm AVG CBC, BMP 02/23/18 12:15 02/23/18 12:04 Current Medications Epoetin Donovan (Procrit -) 20,000 unit IVPUSH ONCE ONE Stop: 02/23/18 15:59 Sodium Chloride (Normal Saline -) 250 mls @ 3,000 mls/hr IV PRN PRN PRN Reason: Hypotension during Dialysis Stop: 02/24/18 15:58 67 year old AA gentleman with PMhx of ESRD on Hd secondary to diabetic nephrpathy, Hypertension, HIV, Largenal Ca s/p radiation who presented with symptomatic Anemia. #ESRD on HD #Anemia #Hypertension #HIV #DM for dialysis today as inpatient with UF as tolerated Will transfuse 2 units PRBC with HD Will give Epogen IV with HD continue home BP meds Continue anti-retrovirals discharge planning s/p dialysis
--- NOTE | 2018-02-23 20:35 | HP ---
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 Mr. Galarza reports that he was instructed to present to ER on friday but decided to wait. He had a scheduled appointment w/ his vascular surgeon (Dr. Lan) this AM who convinced him to present to ER. pt got admitte dfor anemia and dialysis - Past Medical History Cardiovascular: Yes: HTN, Hyperlipdemia Pulmonary: Yes: COPD Gastrointestinal: Yes: Constipation, GERD Hepatobiliary: Yes: Other Renal/: Yes: Renal Inusuff, BPH Heme/Onc: Yes: Cancer Infectious Disease: Yes: HIV, STD's Musculoskeletal: Yes: Chronic low back pain Endocrine: Yes: Diabetes Mellitus (with retinopathy and nephropathy) - Past Surgical History Past Surgical History: Yes: Colonoscopy, Hernia Repair - Smoking History Smoking history: Current every day smoker Have you smoked in the past 12 months: Yes Aproximately how many cigarettes per day: 10 - Alcohol/Substance Use Hx Alcohol Use: No History of Substance Use: reports: None - Social History ADL: Independent 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 History of Recent Travel: No Home Medications - Allergies Allergies/Adverse Reactions: Allergies Allergy/AdvReac Type Severity Reaction Status Date / Time No Known Drug Allergies Allergy Verified 02/23/18 11:13 - Home Medications Home Medications: Ambulatory Orders Abacavir Sulfate [Abacavir] 300 mg PO DAILY 02/04/18 Cholecalciferol (Vitamin D3) [Vitamin D3] 1,000 unit PO DAILY 02/04/18 Citalopram Hydrobromide [Citalopram HBr] 20 mg PO DAILY 02/04/18 Dolutegravir Sodium [Tivicay] 50 mg PO DAILY 02/04/18 Glipizide [Glipizide ER] 0 mg PO BID 02/04/18 Lamivudine [Epivir Hbv] 100 mg PO DAILY 02/04/18 Pravastatin Sodium [Pravachol] 40 mg PO DAILY 02/04/18 Tamsulosin HCl [Flomax -] 0.4 mg PO DAILY 02/04/18 Zolpidem Tartrate [Ambien] 5 mg PO HS MDD mmd1 02/04/18 Ferrous Sulfate [Feosol] 325 mg PO BID #60 tab 02/06/18 Nifedipine ER [Procardia XL -] 90 mg PO DAILY@0900 #60 tab.er.24 02/06/18 Torsemide [Demadex -] 40 mg PO DAILY #60 tablet 02/06/18 hydrALAZINE HCL [Apresoline -] 50 mg PO TID #90 tablet 02/10/18 Albuterol 2.5/Ipratropium 0.5 [Duoneb -] 1 amp NEB RQID PRN #20 amp 02/11/18 Carvedilol [Coreg -] 25 mg PO BID #60 tablet 02/11/18 Cefuroxime Axetil [Ceftin -] 500 mg PO DAILY #4 tablet 02/11/18 Family Disease History - Family Disease History Family Disease History: CA: Mother, Other: Father Physical Examination Vital Signs: Vital Signs Temperature 98 F 02/23/18 18:57 Pulse Rate 70 02/23/18 18:57 Respiratory Rate 20 02/23/18 18:57 Blood Pressure 160/72 02/23/18 18:57 O2 Sat by Pulse Oximetry (%) 94 L 02/23/18 17:56 Constitutional: Yes: No Distress HENT: Yes: Atraumatic Neck: Yes: Supple Cardiovascular: Yes: Regular Rate and Rhythm Respiratory: Yes: CTA Bilaterally Gastrointestinal: Yes: Normal Bowel Sounds Extremities: Yes: WNL Edema: No Neurological: Yes: Alert, Oriented Labs: CBC, BMP 02/23/18 12:15 02/23/18 12:04 Problem List - Problems (1) Anemia Code(s): D64.9 - ANEMIA, UNSPECIFIED Qualifiers: Anemia type: unspecified type Qualified Code(s): D64.9 - Anemia, unspecified (2) CKD (chronic kidney disease) requiring chronic dialysis Code(s): N18.6 - END STAGE RENAL DISEASE; Z99.2 - DEPENDENCE ON RENAL DIALYSIS (3) End stage renal disease Code(s): N18.6 - END STAGE RENAL DISEASE (4) Hyperlipidemia Code(s): E78.5 - HYPERLIPIDEMIA, UNSPECIFIED Qualifiers: (5) Hypertension Code(s): I10 - ESSENTIAL (PRIMARY) HYPERTENSION Assessment/Plan Laboratory Tests 02/23/18 02/23/18 02/23/18 12:04 12:15 12:15 WBC 5.6 D RBC 2.32 L Hgb 7.3 L D Hct 22.5 L MCV 97.0 H MCH 31.6 MCHC 32.6 RDW 20.7 H Plt Count 209 MPV 9.1 Neutrophils % 77.2 Lymphocytes % 12.8 D Monocytes % 9.1 D Eosinophils % 0.4 D Basophils % 0.5 D Retic Count 2.94 H D PT with INR 13.50 H INR 1.19 H Sodium 140 Potassium 4.8 Chloride 108 H Carbon Dioxide 24 Anion Gap 8 BUN 51 H D Creatinine 9.9 H* D Creat Clearance w eGFR 5.32 Random Glucose 88 D Calcium 7.9 L Ferritin 124.407 Total Bilirubin 0.3 D AST 22 ALT 25 D Alkaline Phosphatase 149 H LD Total 266 H D Total Protein 6.1 L Albumin 2.3 L Blood Type Antibody Screen Crossmatch 02/23/18 12:15 WBC RBC Hgb Hct MCV MCH MCHC RDW Plt Count MPV Neutrophils % Lymphocytes % Monocytes % Eosinophils % Basophils % Retic Count PT with INR INR Sodium Potassium Chloride Carbon Dioxide Anion Gap BUN Creatinine Creat Clearance w eGFR Random Glucose Calcium Ferritin Total Bilirubin AST ALT Alkaline Phosphatase LD Total Total Protein Albumin Blood Type O POSITIVE Antibody Screen Negative Crossmatch See Detail Active Medications Generic Name Dose Route Start Last Admin Trade Name Freq PRN Reason Stop Dose Admin Epoetin Donovan 20,000 unit 02/23/18 15:58 Procrit - IVPUSH 02/23/18 15:59 ONCE ONE Sodium Chloride 250 mls @ 3,000 mls/hr 02/23/18 15:58 Normal Saline - IV 02/24/18 15:58 PRN PRN Hypotension during Dialysis
[2018-02-23] MEDS ORDERED: SODIUM CHLORIDE 250 ML IV PRN (21:53)
[2018-02-23] MEDS ORDERED: ZOLPIDEM TARTRATE 5 MG TABLET PO PRN (22:00)
[2018-02-24] MEDS: CARVEDILOL 25 MG TABLET (FP) PO SCH ×2 (00:55→09:03)
[2018-02-24] MEDS: glipiZIDE-XL 5 MG TAB.ER.24 PO SCH ×2 (00:56→06:08)
[2018-02-24] MEDS: hydrALAZINE HCL 50 MG TABLET (FP) PO SCH ×2 (00:56→06:08)
[2018-02-24 07:38] LABS: BASO % 0.4 % (0-2.0); EOS % 0.5 % (0-4.5); HEMOGLOBIN 8.8 GM/dL (11.7-16.9); LYMPH % 12.6 % (8-40); MCHC 34.1 g/dl (32.0-35.9); MEAN PLT VOLUME 8.8 fl (7.5-11.1); MONO % 9.9 % (3.8-10.2); NEUT % 76.6 % (42.8-82.8); PLATELET COUNT 174 K/MM3 (134-434); RBC 2.76 M/mm3 (4.00-5.60); WHITE BLOOD COUNT 5.9 K/mm3 (4.0-10.0)
[2018-02-24 07:52] VITALS: BP 154/81; PULSE 78; TEMP 98.6
[2018-02-24 08:03] LABS: CHLORIDE 105 mmol/L (98-107); SODIUM 141 mmol/L (136-145)
[2018-02-24 08:07] LABS: TRANSFERRIN 175 mg/dL (200-370)
[2018-02-24 08:23] LABS: ALBUMIN 2.2 g/dl (3.4-5.0); ALK PHOS 144 U/L (45-117); ANION GAP 7 (8-16); BILIRUBIN,TOTAL 0.5 mg/dL (0.2-1.0); BLOOD UREA NITROGEN 28 mg/dL (7-18); CALCIUM 7.9 mg/dL (8.5-10.1); CO2 29 mmol/L (21-32); CREATININE 6.6 mg/dL (0.7-1.3); GLUCOSE,RANDOM 75 mg/dL (74-106); SGPT/ALT 22 U/L (12-78); TOT PROT 5.9 g/dl (6.4-8.2)
[2018-02-24] MEDS ORDERED: TAMSULOSIN HCL 0.4 MG CAP.ER.24H (FP) PO SCH (08:30)
[2018-02-24 08:33] LABS: POTASSIUM 3.7 mmol/L (3.5-5.1)
[2018-02-24 08:34] LABS: SGOT/AST 22 U/L (15-37)
[2018-02-24] MEDS ORDERED: PT OWN MED DRAWER 7, Y5N ONE (08:59)
[2018-02-24] MEDS ORDERED: NIFEdipine E.R. 30 MG TABLET (FP) PO SCH (09:00)
[2018-02-24] MEDS ORDERED: TORSEMIDE 20 MG TABLET (FP) PO SCH (10:00)
[2018-02-24] MEDS ORDERED: CITALOPRAM HYDROBROMIDE 20 MG TABLET (FP) PO SCH (10:00)
[2018-02-24] MEDS ORDERED: DOLUTEGRAVIR SODIUM 50 MG TABLET PO SCH (10:00)
[2018-02-24] MEDS ORDERED: ABACAVIR SULFATE 300 MG TABLET PO SCH (10:00)
[2018-02-24] MEDS ORDERED: lamiVUDine 10 MG/1 ML BULK BOTTLE PO SCH (10:00)
[2018-02-24 10:16] LABS: SERUM IRON SATURATION 11 % (15-55); TOTAL IRON BINDING CAPACITY 230 ug/dL (250-450); UIBC 204 ug/dL (111-343)
[2018-02-24] MEDS ORDERED: ATORVASTATIN CA 10 MG TABLET (FP) PO SCH (22:00)
--- NOTE | 2018-02-26 16:59 | DS ---
Physical Examination Vital Signs: Vital Signs Temperature 98.6 F 02/24/18 06:00 Pulse Rate 78 02/24/18 06:00 Respiratory Rate 19 02/24/18 10:00 Blood Pressure 154/81 02/24/18 06:00 O2 Sat by Pulse Oximetry (%) 98 02/24/18 10:00 Labs: CBC, BMP 02/24/18 06:30 02/24/18 06:30 Discharge Summary Reason For Visit: ANEMIA,ESRD - Instructions Referrals: Samira Rolle MD [Primary Care Provider] - Disposition: HOME - Home Medications Comprehensive Discharge Medication List: Ambulatory Orders Abacavir Sulfate [Abacavir] 300 mg PO DAILY 02/04/18 Cholecalciferol (Vitamin D3) [Vitamin D3] 1,000 unit PO DAILY 02/04/18 Citalopram Hydrobromide [Citalopram HBr] 20 mg PO DAILY 02/04/18 Dolutegravir Sodium [Tivicay] 50 mg PO DAILY 02/04/18 Glipizide [Glipizide ER] 0 mg PO BID 02/04/18 Lamivudine [Epivir Hbv] 100 mg PO DAILY 02/04/18 Pravastatin Sodium [Pravachol] 40 mg PO DAILY 02/04/18 Tamsulosin HCl [Flomax -] 0.4 mg PO DAILY 02/04/18 Zolpidem Tartrate [Ambien] 5 mg PO HS MDD mmd1 02/04/18 Ferrous Sulfate [Feosol] 325 mg PO BID #60 tab 02/06/18 Nifedipine ER [Procardia XL -] 90 mg PO DAILY@0900 #60 tab.er.24 02/06/18 Torsemide [Demadex -] 40 mg PO DAILY #60 tablet 02/06/18 hydrALAZINE HCL [Apresoline -] 50 mg PO TID #90 tablet 02/10/18 Albuterol 2.5/Ipratropium 0.5 [Duoneb -] 1 amp NEB RQID PRN #20 amp 02/11/18 Carvedilol [Coreg -] 25 mg PO BID #60 tablet 02/11/18 Cefuroxime Axetil [Ceftin -] 500 mg PO DAILY #4 tablet 02/11/18 nd home
== END 2018-02-24 10:52 | disposition home or self-care (01) | DRG 811 ==
LOC: JER 10:52 → JERBED 16:39 → J5S 18:19 → OBSVTOIN 20:35
PROVIDERS: ADMIT Internal Medicine; ATTEND Internal Medicine
PROC: 30233N1 Transfusion of Nonautologous Red Blood Cells into Peripheral Vein, Percutaneous Approach (ICD-10-PCS; principal; 2018-02-23)
PROC: 5A1D70Z Performance of Urinary Filtration, Intermittent, Less than 6 Hours Per Day (ICD-10-PCS; 2018-02-23)
DX: D50.9 Iron deficiency anemia, unspecified (principal); N18.6 End stage renal disease; I12.0 Hypertensive chronic kidney disease with stage 5 chronic kidney disease or end stage renal disease; E78.5 Hyperlipidemia, unspecified; J45.909 Unspecified asthma, uncomplicated; F32.9 Major depressive disorder, single episode, unspecified; F17.210 Nicotine dependence, cigarettes, uncomplicated; E11.21 Type 2 diabetes mellitus with diabetic nephropathy; J44.9 Chronic obstructive pulmonary disease, unspecified; K21.9 Gastro-esophageal reflux disease without esophagitis; K40.20 Bilateral inguinal hernia, without obstruction or gangrene, not specified as recurrent; M54.5 Low back pain; N40.0 Benign prostatic hyperplasia without lower urinary tract symptoms; K59.00 Constipation, unspecified; E11.319 Type 2 diabetes mellitus with unspecified diabetic retinopathy without macular edema; E11.22 Type 2 diabetes mellitus with diabetic chronic kidney disease; Z21 Asymptomatic human immunodeficiency virus [HIV] infection status; Z99.2 Dependence on renal dialysis; Z85.21 Personal history of malignant neoplasm of larynx
CPT/HCPCS: 36415; 36430; 80053; 82728; 83010; 83540; 83550; 83615; 84466; 85025; 85044; 85610; 86850; 86900; 86901; 86922; 93005; 93010; 99285-25; G0378; G0463-25; J0885; P9038; P9058

== ENCOUNTER 2018-05-16 18:14 | Emergency (ER) | payer OTHER ==
[2018-05-16 18:32] VITALS: BP 133/86; PULSE 76; TEMP 98; BMI 23.7
--- NOTE | 2018-05-16 18:43 | PDOC ---
History of Present Illness - General Chief Complaint: Injury Stated Complaint: ANKLE INJURY Time Seen by Provider: 05/16/18 18:38 History Source: Patient Exam Limitations: No Limitations - History of Present Illness Initial Comments: 05/16/18 18:42 HISTORY OF PRESENT ILLNESS: This 67-year-old male who presents emergency department right ankle pain for 2 weeks. 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 Patient was immediately ambulatory after the injury and noticed that after approximately 2 days the pain improved. Patient states that approximately 5 days after initial injury began to experience more pain in the ankle which spontaneously resolved after 2-3 days and pain returned approximately 2 days ago. No recent travel or sick contacts. ALLERGIES: No known drug allergies REVIEW OF SYSTEMS General/Constitutional: Denies fever or chills. Denies weakness, weight change. HEENT: Denies change in vision. Denies ear pain or discharge. Denies sore throat. Cardiovascular: Denies chest pain or shortness of breath. Respiratory: Denies cough, wheezing, or hemoptysis. Gastrointestinal: Denies nausea, vomiting, diarrhea or constipation. Denies rectal bleeding. Genitourinary: Denies dysuria, frequency, or change in urination. Musculoskeletal: Denies muscle swelling or pain. Denies neck or back pain. right ankle pain. Skin and breasts: Denies rash or easy bruising. Neurologic: Denies headache, vertigo, loss of consciousness, or loss of sensation. Psychiatric: Denies depression or anxiety. Endocrine: Denies increased thirst. Denies abnormal weight change. Hematologic/Lymphatic: Denies anemia, easy bleeding, or history of blood clots. Allergic/Immunologic: Denies hives or skin allergy. Denies latex allergy. PHYSICAL EXAM General Appearance: Well-appearing, appropriately dressed. No apparent distress , no intoxication. HEENT: EOMI, PERRLA, normal ENT inspection, normal voice, TMs normal, pharynx normal. No conjunctival pallor. No photophobia, scleral icterus. Neck: Supple. Trachea midline. No tenderness, rigidity, carotid bruit, stridor , lymphadenopathy, or thyromegaly. Respiratory/Chest: Lungs CTAB. No shortness of breath, chest tenderness, respiratory distress, accessory muscle use. No crackles, rales, rhonchi, stridor , wheezing, dullness Cardiovascular: RRR. S1, S2. No JVD, murmur, bradycardia, tachycardia. Vascular Pulses: Dorsalis-Pedis (R): 2+, Dorsalis-Pedis (L): 2+ Gastrointestinal/Abdominal: Normal bowel sounds. Abdomen soft, non-distended. No tenderness or rebound tenderness. No organomegaly, pulsatile mass, guarding , hernia, hepatomegaly, splenomegaly. Lymphatic: No adenopathy, tenderness. Musculoskeletal/Extremities: Normal inspection. FROM of all extremities, normal capillary refill. Pelvis Stable. No CVA tenderness. No tenderness to extremities, pedal edema, swelling, erythema or deformity. Integumentary: Appropriate color, dry, warm. 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 Fully oriented, alert. Appropriate mood/affect. Motor strength 5/5. No appreciable EOM palsy, facial droop or sensory deficit. Past History - Past Medical History Allergies/Adverse Reactions: Allergies Allergy/AdvReac Type Severity Reaction Status Date / Time No Known Drug Allergies Allergy Verified 05/16/18 18:32 Home Medications: Ambulatory Orders Abacavir Sulfate [Abacavir] 300 mg PO DAILY 02/04/18 Cholecalciferol (Vitamin D3) [Vitamin D3] 1,000 unit PO DAILY 02/04/18 Dolutegravir Sodium [Tivicay] 50 mg PO DAILY 02/04/18 Glipizide [Glipizide ER] 0 mg PO BID 02/04/18 Lamivudine [Epivir Hbv] 100 mg PO DAILY 02/04/18 Pravastatin Sodium [Pravachol] 40 mg PO DAILY 02/04/18 Tamsulosin HCl [Flomax -] 0.4 mg PO DAILY 02/04/18 Ferrous Sulfate [Feosol] 325 mg PO BID #60 tab 02/06/18 Nifedipine ER [Procardia XL -] 90 mg PO DAILY@0900 #60 tab.er.24 02/06/18 Torsemide [Demadex -] 40 mg PO DAILY #60 tablet 02/06/18 hydrALAZINE HCL [Apresoline -] 50 mg PO TID #90 tablet 02/10/18 Albuterol 2.5/Ipratropium 0.5 [Duoneb -] 1 amp NEB RQID PRN #20 amp 02/11/18 Carvedilol [Coreg -] 25 mg PO BID #60 tablet 02/11/18 Cefuroxime Axetil [Ceftin -] 500 mg PO DAILY #4 tablet 02/11/18 Ibuprofen 600 mg PO BID #14 tablet 04/09/18 Sodium Fluoride/Potassium Nit [Prevident 5000 Enamel Protect] 100 ml DT BID #1 paste..ml. 04/09/18 Citalopram Hydrobromide [Celexa -] 10 mg PO DAILY #30 tablet 04/30/18 Zolpidem Tartrate [Ambien] 5 mg PO HS PRN #15 tablet MDD 1 04/30/18 Anemia: Yes (IRON DEFICIENCY.) Asthma: Yes Cancer: Yes (laryngeal / throat) Cardiac Disorders: Yes (ANGINA.) CVA: No COPD: No CHF: No DVT: No Dementia: No Diabetes: Yes Dialysis: Yes (esrd, lt arm fistula) GI Disorders: No Disorders: Yes HTN: Yes Hypercholesterolemia: Yes Liver Disease: No Psychiatric Problems: Yes (DEPRESSION.) Seizures: No Thyroid Disease: Yes - Surgical History Abdominal Surgery: Yes (bilaterl inguinal hernia repair and undescend testis left) Appendectomy: No Cardiac Surgery: No Cholecystectomy: No Lung Surgery: No Neurologic Surgery: No Orthopedic Surgery: No - Reproductive History Testicular Surgery: No - Immunization History Immunization Up to Date: Yes - Suicide/Smoking/Psychosocial Hx Smoking History: Current every day smoker Have you smoked in the past 12 months: Yes Number of Cigarettes Smoked Daily: 10 Cigars Per Day: 0 Information on smoking cessation initiated: No 'Breaking Loose' booklet given: 01/09/18 Hx Alcohol Use: No Drug/Substance Use Hx: No Substance Use Type: None Hx Substance Use Treatment: Yes *Physical Exam - Vital Signs Last Vital Signs Temp Pulse Resp BP Pulse Ox 98 F 76 18 133/86 100 05/16/18 18:16 05/16/18 18:16 05/16/18 18:16 05/16/18 18:16 05/16/18 18:16 ED Treatment Course - RADIOLOGY Radiology Studies Ordered: Category Date Time Status ANKLE & FOOT-RIGHT* [RAD] Stat Radiology 05/16/18 18:39 Ordered Medical Decision Making - Medical Decision Making 05/16/18 19:07 This 67-year-old male with right ankle pain for 2 weeks status post inversion injury 2+ DP pulses No tenderness to palpation over bony surfaces Full range of motion against resistance Able to ambulate in the ER X-ray, reassess X-rays read by me: No fractures or dislocations present Discharge home *DC/Admit/Observation/Transfer Diagnosis at time of Disposition: Ankle sprain Qualifiers: Encounter type: initial encounter Involved ligament of ankle: unspecified ligament Laterality: right Qualified Code(s): S93.401A - Sprain of unspecified ligament of right ankle, initial encounter - Discharge Dispostion Disposition: HOME Condition at time of disposition: Stable Decision to Admit order: No - Referrals Referrals: Rip Vela MD [Staff Physician] - - Patient Instructions Additional Instructions: Take Tylenol or Motrin as needed for pain. Follow manufacturers instructions for appropriate dosage. Apply ice for 20 minutes and removed for at least 20 minutes before reapplying the ice. Keep Maulik wrap on your ankle as much as possible to help decrease some of the swelling control pain. Whenever possible keep your foot elevated to decrease swelling to your ankle. You've been given the number for an orthopedist. If symptoms do not resolve within the next 7 days call the orthopedist for further evaluation. Return to emergency department for discoloration of the foot, numbness or tingling to the foot, worsening pain, or any other concerns. Thank you very much for choosing us to provide your emergent healthcare needs. - Post Discharge Activity
== END 2018-05-16 19:12 | disposition home or self-care (01) ==
LOC: JERFT 18:14
DX: S93.401A Sprain of unspecified ligament of right ankle, initial encounter (principal); W10.8XXA Fall (on) (from) other stairs and steps, initial encounter; Y93.89 Activity, other specified; Y92.531 Health care provider office as the place of occurrence of the external cause; Y99.8 Other external cause status; I25.10 Atherosclerotic heart disease of native coronary artery without angina pectoris; I13.11 Hypertensive heart and chronic kidney disease without heart failure, with stage 5 chronic kidney disease, or end stage renal disease; N18.6 End stage renal disease; F17.210 Nicotine dependence, cigarettes, uncomplicated; Z99.2 Dependence on renal dialysis; E11.9 Type 2 diabetes mellitus without complications; Z79.84 Long term (current) use of oral hypoglycemic drugs; E78.00 Pure hypercholesterolemia, unspecified; F32.9 Major depressive disorder, single episode, unspecified
CPT/HCPCS: 73610-TC-RT-FY; 73630-TC-RT-FY; 99281-25

== ENCOUNTER 2018-07-09 07:22 | Day surgery (SDC) | payer OTHER ==
[2018-07-08 15:48] VITALS: BMI 24.4
[2018-07-09 10:08] VITALS: TEMP 97.8
[2018-07-09 10:28] VITALS: PULSE 63
[2018-07-09 11:35] VITALS: BP 143/59
--- NOTE | 2018-07-10 16:34 | PATH ---
Surgical Pathology Report Patient Name: LEX FORTE [facility]. Rec. #: [id number] /Age/Gender: 1950 (Age: 68) / M Account: [id number] Location: U-ENDOSCOPY Taken: 07/09/2018 Received: 07/09/2018 Reported: 07/10/2018 Physicians: Maverick Sandy M.D. Specimen(s) Received A: BX ANTRUM B: BX BODY Clinical History Anemia, elevated CEA level, melena Postoperative diagnosis: Portal gastropathy, erosive gastritis, erosive duodenitis Final Diagnosis A. EROSION ANTRUM, BIOPSY: GASTRIC MUCOSA WITH EPITHELIAL EROSION AND MODERATELY ACTIVE CHRONIC GASTRITIS. IMMUNOSTAIN IS POSITIVE FOR H. PYLORI ORGANISMS. NEGATIVE FOR INTESTINAL METAPLASIA. B. BODY, BIOPSY: GASTRIC MUCOSA WITH MILD ACTIVE CHRONIC GASTRITIS. IMMUNOSTAIN IS POSITIVE FOR H. PYLORI ORGANISMS. NEGATIVE FOR INTESTINAL METAPLASIA. Electronically Signed Galen Parmar M.D. Gross Description A. Received in formalin, labeled "biopsy antrum" are 2 barber, irregular portions of soft tissue measuring 01 and 0.3 cm. in greatest dimension. The specimens are submitted in toto in one cassette. B. Received in formalin, labeled "biopsy body" are 2 barber, irregular portions of soft tissue measuring 0.1 and 0.4 cm. in greatest dimension. The specimens are submitted in toto in one cassette. 07/09/2018 saudi07/09/2018
== END 2018-07-09 11:20 | disposition home or self-care (01) ==
LOC: JASU-ENDO 07:22
PROVIDERS: ATTEND Internal Medicine Gastroenterology
PROC: 0DB68ZX Excision of Stomach, Via Natural or Artificial Opening Endoscopic, Diagnostic (ICD-10-PCS; principal; 2018-07-09 08:00)
DX: D64.9 Anemia, unspecified (principal); K29.50 Unspecified chronic gastritis without bleeding; K26.9 Duodenal ulcer, unspecified as acute or chronic, without hemorrhage or perforation; K25.9 Gastric ulcer, unspecified as acute or chronic, without hemorrhage or perforation; K31.9 Disease of stomach and duodenum, unspecified; Z21 Asymptomatic human immunodeficiency virus [HIV] infection status; I12.0 Hypertensive chronic kidney disease with stage 5 chronic kidney disease or end stage renal disease; N18.6 End stage renal disease; Z99.2 Dependence on renal dialysis
CPT/HCPCS: 36415; 84132; 88305-TC; 88342-TC

== ENCOUNTER 2018-11-05 08:14 | Day surgery (SDC) | payer OTHER ==
[2018-11-05 09:25] VITALS: BMI 24.3
[2018-11-05 11:13] VITALS: TEMP 97.9
[2018-11-05 11:41] VITALS: PULSE 66
[2018-11-05 15:24] VITALS: BP 143/62
--- NOTE | 2018-11-06 10:00 | PATH ---
Surgical Pathology Report Patient Name: LEX FORTE [facility]. Rec. #: [id number] /Age/Gender: 1950 (Age: 68) / M Account: [id number] Location: [facility]-ENDOSCOPY Taken: 11/05/2018 Received: 11/05/2018 Reported: 11/06/2018 Physicians: Maverick Sandy M.D. Specimen(s) Received A: DESCENDING COLON POLYP B: DISTAL TRANSVERSE COLON POLYP C: POLYP APPENDICEAL ORIFICE POLYP Clinical History Anemia, family history of colon cancer Postoperative diagnosis: Diverticulosis, colon polyps Final Diagnosis A. DESCENDING COLON, POLYPECTOMY: TUBULAR ADENOMA. B. DISTAL TRANSVERSE COLON, POLYP, POLYPECTOMY: TUBULAR ADENOMA. C. APPENDICEAL ORIFICE POLYP, BIOPSY: TUBULAR ADENOMA. Electronically Signed Komal Simpson M.D. Gross Description A. Received in formalin, labeled "descending colon polyp" is a barber, irregular portion of soft tissue measuring 0.4 cm. in greatest dimension. The specimen is submitted in toto in one cassette. B. Received in formalin, labeled "distal transverse colon polyp" is a barber, irregular portion of soft tissue measuring 0.6 cm. in greatest dimension. The specimen is submitted in toto in one cassette. C. Received in formalin, labeled "appendiceal orifice polyp" is a barber, irregular portion of soft tissue measuring 0.3 cm. in greatest dimension. The specimen is submitted in toto in one cassette. DL11/05/2018 saudi11/05/2018
== END 2018-11-05 12:15 | disposition home or self-care (01) ==
LOC: JASU-ENDO 08:14
PROVIDERS: ATTEND Internal Medicine Gastroenterology
PROC: 0DBL8ZX Excision of Transverse Colon, Via Natural or Artificial Opening Endoscopic, Diagnostic (ICD-10-PCS; 2018-11-05)
PROC: 0DBE8ZX Excision of Large Intestine, Via Natural or Artificial Opening Endoscopic, Diagnostic (ICD-10-PCS; 2018-11-05)
PROC: 0DBM8ZX Excision of Descending Colon, Via Natural or Artificial Opening Endoscopic, Diagnostic (ICD-10-PCS; principal; 2018-11-05 08:00)
DX: D64.9 Anemia, unspecified (principal); K57.30 Diverticulosis of large intestine without perforation or abscess without bleeding; D12.4 Benign neoplasm of descending colon; D12.3 Benign neoplasm of transverse colon; Z21 Asymptomatic human immunodeficiency virus [HIV] infection status; E11.9 Type 2 diabetes mellitus without complications; Z79.84 Long term (current) use of oral hypoglycemic drugs; I12.0 Hypertensive chronic kidney disease with stage 5 chronic kidney disease or end stage renal disease; J44.9 Chronic obstructive pulmonary disease, unspecified; Z72.0 Tobacco use; Z80.0 Family history of malignant neoplasm of digestive organs
CPT/HCPCS: 36415; 82962; 84132; 88305-TC

== ENCOUNTER 2019-11-02 12:14 | Inpatient (IN) | payer OTHER ==
[2019-11-02] MEDS ORDERED: methylPREDNISolone NA SUCC 125 MG/2 ML VIAL IVPUSH ONE (12:57)
[2019-11-02] MEDS ORDERED: ALBUTEROL SO4 2.5/IPRATROPIUM 0.5 INH SOL 3 ML VIAL.NEB. NEB ONE ×4 (12:57→14:10)
[2019-11-02] MEDS ORDERED: SODIUM CHLORIDE 2,313 ML IV ONE (13:04)
--- NOTE | 2019-11-02 13:09 | PDOC ---
History of Present Illness - General Chief Complaint: Respiratory Distress Stated Complaint: Shortness of Breath Time Seen by Provider: 11/02/19 12:46 - History of Present Illness Initial Comments: Mr. Galarza is a 69 y/o male with PMH significant for HIV, throat CA s/p radiation, COPD, ESRD on HD, cardiac arrest x4, presenting today with 2 weeks of worsening shortness of breath and productive cough. Denies fever/chills. Denies chest pain. Denies abdominal pain. Denies leg swelling. Denies change in stool/urine. Seen by Dr. Wu today and sent in for respiratory distress. Past History - Past Medical History Allergies/Adverse Reactions: Allergies Allergy/AdvReac Type Severity Reaction Status Date / Time No Known Drug Allergies Allergy Verified 11/02/19 12:27 Home Medications: Ambulatory Orders Albuterol Sulfate [Proair Hfa] 8.5 gm IH PRN PRN 07/09/18 Amlodipine Besylate [Norvasc -] 10 mg PO DAILY 07/09/18 Tiotropium Sterling [Spiriva Respimat] 4 gm IH BID 07/09/18 Abacavir/Dolutegravir/Lamivudi [Triumeq 600-50-300 mg Tablet] 1 tab PO DAILY 10/07 Aspirin [ASA -] 1 tab PO DAILY 08/31/19 Citalopram Hydrobromide [Celexa -] 40 mg PO DAILY 08/31/19 Nevirapine [Nevirapine ER] 1 tab PO DAILY 08/31/19 Pravastatin Sodium [Pravachol -] 1 tab PO DAILY 08/31/19 Quinapril HCl 1 tab PO DAILY 08/31/19 Ranitidine HCl 300 tab PO HS 08/31/19 Umeclidinium Brm/Vilanterol Tr [Anoro Ellipta 62.5-25 Mcg INH] 1 puff IH DAILY 08/31/19 Abacavir Sulfate [Abacavir] 600 mg PO DAILY 30 Days #60 tablet 09/07/19 Dolutegravir Sodium [Tivicay] 50 mg PO DAILY #30 tablet 09/07/19 Lamivudine [Epivir Hbv] 100 mg PO DAILY #30 tablet 09/07/19 Anemia: Yes Asthma: Yes Cancer: Yes (THROAT,LARYNGEAL CANCER) Cardiac Disorders: Yes CVA: No COPD: Yes (S/P CARDIAC/RESP ARREST 09/07) CHF: Yes (ACUTE ON CHRONIC DIASTOLIC) DVT: No Dementia: No Diabetes: No Dialysis: Yes (ESRD ON HD) GI Disorders: Yes (H/O MELENA) Disorders: Yes (h/o prostatitis) HTN: Yes Hypercholesterolemia: Yes Liver Disease: No Psychiatric Problems: Yes (DEPRESSION.) Seizures: No Thyroid Disease: Yes (s/p radiation, dx 2016) - Surgical History Abdominal Surgery: Yes (bilaterl inguinal hernia repair and undescend testis left) Appendectomy: No Cardiac Surgery: No Cholecystectomy: No Lung Surgery: No Neurologic Surgery: No Orthopedic Surgery: No - Reproductive History Testicular Surgery: No - Immunization History Immunization Up to Date: Yes - Psycho Social/Smoking Cessation Hx Smoking History: Current every day smoker Have you smoked in the past 12 months: Yes Number of Cigarettes Smoked Daily: 20 Cigars Per Day: 0 Information on smoking cessation initiated: Yes 'Breaking Loose' booklet given: 01/09/18 Hx Alcohol Use: No Drug/Substance Use Hx: No Substance Use Type: None Hx Substance Use Treatment: Yes Respiratory Specific PMHX - Complaint Specific PMHX Hx TB (Tuberculosis): No Review of Systems - Review of Systems Comments:: GENERAL/CONSTITUTIONAL: No fever or chills. No weakness._ HEAD, EYES, EARS, NOSE AND THROAT: No change in vision. No change in hearing. No sore throat._ CARDIOVASCULAR: No chest pain. Reports shortness of breath. RESPIRATORY: Reports productive cough. GASTROINTESTINAL: No nausea, vomiting, diarrhea or constipation._ GENITOURINARY: No dysuria, frequency, or change in urination._ MUSCULOSKELETAL: No joint or muscle swelling or pain. No neck or back pain._ SKIN: No rash_ NEUROLOGIC: No headache, vertigo, loss of consciousness, or change in strength/ sensation._ ENDOCRINE: No increased thirst. No abnormal weight change_ HEMATOLOGIC/LYMPHATIC: No anemia, easy bleeding, or history of blood clots._ ALLERGIC/IMMUNOLOGIC: No hives or skin allergy._ *Physical Exam - Vital Signs Last Vital Signs Temp Pulse Resp BP Pulse Ox 99.2 F 85 24 H 137/78 100 11/02/19 12:20 11/02/19 12:20 11/02/19 12:20 11/02/19 12:20 11/02/19 12:30 - Physical Exam GENERAL: Awake, alert, and oriented to person/place/time, in no acute distress_ HEAD: No signs of trauma, normoc ephalic, atraumatic _ EYES: PERRLA, EOMI, sclera anicteric, conjunctiva clear_ ENT: Hearing grossly normal, nares patent, oropharynx clear without exudates. No uvular deviation. Moist mucosa_ NECK: Normal ROM, supple, no lymphadenopathy, JVD, or masses_ LUNGS: Wheezes and congestion in bilateral upper and lower lung allred. HEART: Regular rate and rhythm, normal S1 and S2, no murmurs appreciated, peripheral pulses normal and equal bilaterally._ ABDOMEN: Soft, nontender, normoactive bowel sounds. No guarding, no rebound. No masses_ EXTREMITIES: Normal inspection, Normal range of motion, no edema. No clubbing or cyanosis_ NEUROLOGICAL: Cranial nerves II through XII grossly intact. Normal speech, normal gait, no focal sensorimotor deficits _ SKIN: Warm, Dry, normal turgor, no rashes or lesions noted_ ED Treatment Course - LABORATORY CBC & Chemistry Diagram: 11/02/19 13:10 11/02/19 13:06 - RADIOLOGY Radiology Studies Ordered: Category Date Time Status CHEST X-RAY PORTABLE* [RAD] Stat Radiology 11/02/19 12:55 Ordered Medical Decision Making - Medical Decision Making 11/02/19 1245 EKG shows 82 bpm, no ST elevation/depression, QTc 469, LVH. 11/02/19 13:10 69M with extensive PMH presenting with 2 weeks of worsening shortness of breath and productive cough. -cbc, cmp, lactic, trop -ekg, cxr -coags, VBG -duonebs x3, solumedrol 11/02/19 14:21 CXR shows large heart, tortuous aorta, prominent hilar markings. No rib fracture. Lungs clear and hyperaerated. 11/02/19 14:45 Pt reassessed. Reports that breathing has improved with duonebs x3. 11/02/19 15:09 Labs reviewed. Laboratory Last Values WBC 5.7 K/mm3 (4.0-10.0) 11/02/19 13:10 RBC 3.70 M/mm3 (4.00-5.60) L 11/02/19 13:10 Hgb 12.5 GM/dL (11.7-16.9) 11/02/19 13:10 Hct 38.2 % (35.4-49) D 11/02/19 13:10 MCV 103.2 fl (80-96) H 11/02/19 13:10 MCH 33.6 pg (25.7-33.7) 11/02/19 13:10 MCHC 32.6 g/dl (32.0-35.9) 11/02/19 13:10 RDW 16.2 % (11.9-15.9) H 11/02/19 13:10 Plt Count 244 K/MM3 (134-434) D 11/02/19 13:10 MPV 8.8 fl (7.5-11.1) 11/02/19 13:10 Absolute Neuts (auto) 4.1 K/mm3 (1.5-8.0) 11/02/19 13:10 Neutrophils % 72.1 % (42.8-82.8) 11/02/19 13:10 Lymphocytes % 17.3 % (8-40) D 11/02/19 13:10 Monocytes % 9.7 % (3.8-10.2) 11/02/19 13:10 Eosinophils % 0.4 % (0-4.5) 11/02/19 13:10 Basophils % 0.5 % (0-2.0) 11/02/19 13:10 Nucleated RBC % 0 % (0-0) 11/02/19 13:10 PT with INR 13.80 SEC (9.7-13.0) H 11/02/19 13:10 INR 1.17 (0.83-1.09) H 11/02/19 13:10 PTT (Actin FS) 37.8 SECONDS (25.2-36.5) H 11/02/19 13:10 VBG pH 7.29 (7.31-7.41) L 11/02/19 13:10 POC VBG pCO2 59.1 mmHg (38-52) H 11/02/19 13:10 POC VBG pO2 < 49 mmHg (28-48) H 11/02/19 13:10 VBG HCO3 27.4 mmol/L (23-29) 11/02/19 13:10 VBG O2 Sat (Marley) 29.7 % (70-80) L 11/02/19 13:10 VBG Base Excess 0.2 meq/l (-2-2) 11/02/19 13:10 Sodium 136 mmol/L (136-145) 11/02/19 13:06 Potassium 5.0 mmol/L (3.5-5.1) 11/02/19 13:06 Chloride 101 mmol/L (98-107) 11/02/19 13:06 Carbon Dioxide 26 mmol/L (21-32) 11/02/19 13:06 Anion Gap 9 MMOL/L (8-16) 11/02/19 13:06 BUN 31.1 mg/dL (7-18) H 11/02/19 13:06 Est GFR (CKD-EPI)AfAm 5.62 11/02/19 13:06 Est GFR (CKD-EPI)NonAf 4.85 11/02/19 13:06 Random Glucose 97 mg/dL (74-106) 11/02/19 13:06 Lactic Acid 1.9 mmol/L (0.4-2.0) 11/02/19 13:10 Calcium 9.7 mg/dL (8.5-10.1) 11/02/19 13:06 Total Bilirubin 0.7 mg/dL (0.2-1) 11/02/19 13:06 AST 29 U/L (15-37) 11/02/19 13:06 ALT 14 U/L (13-61) 11/02/19 13:06 Alkaline Phosphatase 99 U/L (45-117) 11/02/19 13:06 Creatine Kinase 159 U/L (26-308) 11/02/19 13:06 Troponin I < 0.02 ng/ml (0.00-0.05) 11/02/19 13:06 B-Natriuretic Peptide 18310.1 pg/ml (5-125) H 11/02/19 13:06 Total Protein 8.6 g/dl (6.4-8.2) H 11/02/19 13:06 Albumin 3.1 g/dl (3.4-5.0) L 11/02/19 13:06 11/02/19 15:11 will give vanc/zosyn for abx coverage 11/02/19 17:53 D/w Dr. Burdick who accepts the patient for admission. Discharge - Discharge Information Problems reviewed: Yes Clinical Impression/Diagnosis: COPD exacerbation, Shortness of breath Condition: Guarded - Admission Yes - Follow up/Referral - Patient Discharge Instructions - Post Discharge Activity
[2019-11-02] MEDS ORDERED: methylPREDNISolone NA SUCC 125 MG/2 ML VIAL ONE (13:12)
--- NOTE | 2019-11-02 13:34 | PDOC ---
Documentation entered by Eryn Lopez SCRIBE, acting as scribe for Oswald Arredondo MD. Oswald Arredondo MD: This documentation has been prepared by the John bernabe Xhesika, SCRIBE, under my direction and personally reviewed by me in its entirety. I confirm that the documentation accurately reflects all work, treatment, procedures, and medical decision making performed by me. Attending Attestation - Resident Resident Name: Albert Perkins - ED Attending Attestation I have performed the following: I have examined & evaluated the patient, The case was reviewed & discussed with the resident, I agree w/resident's findings & plan, Exceptions are as noted - HPI HPI: 11/02/19 13:16 The patient is a 69 year old male with a significant PMH of anemia, laryngeal CA (s/p radiation), ESRD (dialysis MWF), HIV, HTN, and hyperlipidemia who presents to the emergency department for increased productive cough with yellow/ brown sputum and worsening SOB x 2weeks. The patient denies chest pain, headache and dizziness. Denies fever, chills, nausea, vomiting, diarrhea and constipation. Last HD was yesterday. Denies increased leg swelling. Allergies: NKDA PCP: Dr. Sheridan Ruggiero Renal: Dr. Alin Lan - Physicial Exam PE: 11/02/19 13:16 See resident exam - Medical Decision Making 11/02/19 13:35 69 M with cough, SOB. Pt febrile in ED. Will evaluate for PNA. Also consider volume overload vs COPD. - Labs, cultures - CXR - Tylenol, abx
--- NOTE | 2019-11-02 13:34 | EKG ---
Test Reason : Blood Pressure : / mmHG Vent. Rate : 082 BPM Atrial Rate : 082 BPM P-R Int : 134 ms QRS Dur : 094 ms QT Int : 402 ms P-R-T Axes : -07 032 069 degrees QTc Int : 469 ms NORMAL SINUS RHYTHM WITH SINUS ARRHYTHMIA VOLTAGE CRITERIA FOR LEFT VENTRICULAR HYPERTROPHY ABNORMAL ECG WHEN COMPARED WITH ECG OF 23-FEB-2018 12:28, NO SIGNIFICANT CHANGE WAS FOUND Confirmed by MD BRYAN, CHACORTA ([id number]) on 11/02/2019 1:33:52 PM Referred By: Confirmed By:CHACORTA ADAMS MD
[2019-11-02 14:05] LABS: BASO % 0.5 % (0-2.0); EOS % 0.4 % (0-4.5); HEMATOCRIT 38.2 % (35.4-49); HEMOGLOBIN 12.5 GM/dL (11.7-16.9); LYMPH % 17.3 % (8-40); MCH 33.6 pg (25.7-33.7); MCHC 32.6 g/dl (32.0-35.9); MEAN CELL VOLUME 103.2 fl (80-96); MEAN PLT VOLUME 8.8 fl (7.5-11.1); MONO % 9.7 % (3.8-10.2); NEUT % 72.1 % (42.8-82.8); PLATELET COUNT 244 K/MM3 (134-434); RDW 16.2 % (11.9-15.9); WHITE BLOOD COUNT 5.7 K/mm3 (4.0-10.0)
[2019-11-02 14:10] LABS: VENOUS BASE EXCESS 0.2 meq/l (-2-2); VENOUS PC02 59.1 mmHg (38-52); VENOUS PH 7.29 (7.31-7.41)
[2019-11-02 14:13] LABS: VENOUS PO2 < 49 mmHg (28-48)
[2019-11-02 14:27] LABS: INR 1.17 (0.83-1.09); PROTHROMBIN TIME (PATIENT) 13.8 SEC (9.7-13.0)
[2019-11-02 14:30] LABS: ACTIVATED PTT 37.8 SECONDS (25.2-36.5)
[2019-11-02 15:03] LABS: ALBUMIN 3.1 g/dl (3.4-5.0); ALK PHOS 99 U/L (45-117); ANION GAP 9 MMOL/L (8-16); BILIRUBIN,TOTAL 0.7 mg/dL (0.2-1); BLOOD UREA NITROGEN 31.1 mg/dL (7-18); CALCIUM 9.7 mg/dL (8.5-10.1); CHLORIDE 101 mmol/L (98-107); CO2 26 mmol/L (21-32); GLUCOSE,RANDOM 97 mg/dL (74-106); N-TERMINAL BNP 21493.1 pg/ml (5-125); SGOT/AST 29 U/L (15-37); SGPT/ALT 14 U/L (13-61); SODIUM 136 mmol/L (136-145); TOT PROT 8.6 g/dl (6.4-8.2)
[2019-11-02] MEDS ORDERED: PIPERACILLIN/TAZOB 4.5 GM 4.5 GM in DEXTROSE 5%-WATER 100 ML IVPB ONE (15:09)
[2019-11-02] MEDS ORDERED: PIPERACILLIN/TAZOB 4.5 GM 4.5 GM/100 ML BAG IVPB ONE (15:21)
[2019-11-02 15:35] LABS: CREATININE 9.9 mg/dL (0.55-1.3)
[2019-11-02] MEDS ORDERED: ALBUTEROL SO4 HFA INHALER IH PRN (18:41)
--- NOTE | 2019-11-02 18:59 | HP ---
CHIEF COMPLAINT: Shortness of Breath PCP: Dr. Ruggiero HISTORY OF PRESENT ILLNESS: Pt.is a 69 y.o. M w/ PMHx. of HIV, Throat Ca (s/p radiation), COPD (not on home O2), ESRD (MWF), cardiac arrest x 4 (Last arrest [place] last month 2/2 volume overload and respiratory failure) sent in by Dr. Wu for respiratory distress. Pt. states that he has been having worsening shortness of breath over the last 2 weeks with associated productive cough. Pt. states that he took his Duonebs at home around 8 am but it did not have any effect. Pt. describes the sputum as yellow and without blood. Pt. endorses chest tightness but no pain. Pt. states he is unable to lie flat at night and uses 4 pillows to sleep. Pt. also states that he can only walk 1/2 a block before having to stop. Pt. denies getting a Pneumonia vaccine but states he did receive the Flu vaccine. Pt. states that he breathing is currently better. Pt. denies any numbness/ tingling, abdominal pain, diarrhea or constipation. Of note Pt. states that his ex who was at bedside does not know he is HIV positive. ONLY 4 people know that he is HIV positive and therefore he is requesting discretion about his status. Pt. 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, was previously a heavy drinker Drugs: Denies Allergies No Known Drug Allergies Allergy (Verified 11/02/19 12:27) HOME MEDICATIONS: Home Medications Medication Instructions Recorded Albuterol Sulfate [Proair Hfa] 8.5 gm IH PRN PRN 07/09/18 Amlodipine Besylate [Norvasc -] 10 mg PO DAILY 07/09/18 Tiotropium [place] [Spiriva 4 gm IH BID 07/09/18 Respimat] Abacavir/Dolutegravir/Lamivudi 1 tab PO DAILY 08/31/19 [Triumeq 600-50-300 mg Tablet] Aspirin [ASA -] 1 tab PO DAILY 08/31/19 Citalopram Hydrobromide [Celexa -] 40 mg PO DAILY 08/31/19 Nevirapine [Nevirapine ER] 1 tab PO DAILY 08/31/19 Pravastatin Sodium [Pravachol -] 1 tab PO DAILY 08/31/19 Quinapril HCl 1 tab PO DAILY 08/31/19 Ranitidine HCl 300 tab PO HS 08/31/19 Umeclidinium Brm/Vilanterol Tr 1 puff IH DAILY 08/31/19 [Anoro Ellipta 62.5-25 Mcg INH] Abacavir Sulfate [Abacavir] 600 mg PO DAILY 30 Days #60 tablet 09/07/19 Dolutegravir Sodium [Tivicay] 50 mg PO DAILY #30 tablet 09/07/19 Lamivudine [Epivir Hbv] 100 mg PO DAILY #30 tablet 09/07/19 REVIEW OF SYSTEMS As above. PHYSICAL EXAMINATION Vital Signs - 24 hr 11/02/19 11/02/19 11/02/19 12:15 12:20 12:30 Temperature 99.2 F Pulse Rate 85 85 Pulse Rate [ Apical] Respiratory 24 H Rate Blood Pressure 137/78 Blood Pressure [Right Arm] O2 Sat by Pulse 99 100 100 Oximetry (%) 11/02/19 11/02/19 12:45 16:22 Temperature 100.4 F H 98.4 F Pulse Rate Pulse Rate [ 85 Apical] Respiratory 18 Rate Blood Pressure Blood Pressure 229/90 H [Right Arm] O2 Sat by Pulse 100 Oximetry (%) GENERAL: Awake, alert, and fully oriented, in respiratory distress. HEAD: Normal with no signs of trauma. EYES: Pupils equal, round and reactive to light, extraocular movements intact, sclera anicteric, conjunctiva clear. EARS, NOSE, THROAT: Ears normal, nares patent. Dry mucous membranes. LUNGS: Coarse breath sounds with mild diffuse wheezing, audible respirations HEART: Regular rate and rhythm, normal S1 and S2 without murmur ABDOMEN: Soft, nontender, not distended, normoactive bowel sounds, no guarding, no rebound, no masses. MUSCULOSKELETAL: Normal range of motion at all joints. No bony deformities or tenderness. No CVA tenderness. UPPER EXTREMITIES: 2+ radial pulses, warm, well-perfused. L AVF with thrills and frills present. No cyanosis. No clubbing. No peripheral edema. LOWER EXTREMITIES: 2+ dorsal pedal pulses, warm, well-perfused. No calf tenderness. No peripheral edema. NEUROLOGICAL: Cranial nerves II-XII grossly intact. Soft speech. Gait no assessed PSYCHIATRIC: Cooperative. Good eye contact. Appropriate mood and affect. SKIN: Warm, dry, normal turgor, no rashes or lesions noted, normal capillary refill. Laboratory Results - last 24 hr 11/02/19 11/02/19 11/02/19 13:06 13:10 13:10 WBC 5.7 RBC 3.70 L Hgb 12.5 Hct 38.2 D MCV 103.2 H MCH 33.6 MCHC 32.6 RDW 16.2 H Plt Count 244 D MPV 8.8 Absolute Neuts (auto) 4.1 Neutrophils % 72.1 Lymphocytes % 17.3 D Monocytes % 9.7 Eosinophils % 0.4 Basophils % 0.5 Nucleated RBC % 0 PT with INR 13.80 H INR 1.17 H PTT (Actin FS) 37.8 H VBG pH POC VBG pCO2 POC VBG pO2 VBG HCO3 VBG O2 Sat (Marley) VBG Base Excess Sodium 136 Potassium 5.0 Chloride 101 Carbon Dioxide 26 Anion Gap 9 BUN 31.1 H Creatinine 9.9 H* Est GFR (CKD-EPI)AfAm 5.62 Est GFR (CKD-EPI)NonAf 4.85 Random Glucose 97 Lactic Acid Calcium 9.7 Total Bilirubin 0.7 AST 29 ALT 14 Alkaline Phosphatase 99 Creatine Kinase 159 Creatine Kinase Index 1.0 CK-MB (CK-2) 1.6 Troponin I < 0.02 B-Natriuretic Peptide 22693.1 H Total Protein 8.6 H Albumin 3.1 L Influenza A (Rapid) Influenza B (Rapid) 11/02/19 11/02/19 11/02/19 13:10 13:10 15:53 WBC RBC Hgb Hct MCV MCH MCHC RDW Plt Count MPV Absolute Neuts (auto) Neutrophils % Lymphocytes % Monocytes % Eosinophils % Basophils % Nucleated RBC % PT with INR INR PTT (Actin FS) VBG pH 7.29 L POC VBG pCO2 59.1 H POC VBG pO2 < 49 H VBG HCO3 27.4 VBG O2 Sat (Marley) 29.7 L VBG Base Excess 0.2 Sodium Potassium Chloride Carbon Dioxide Anion Gap BUN Creatinine Est GFR (CKD-EPI)AfAm Est GFR (CKD-EPI)NonAf Random Glucose Lactic Acid 1.9 Calcium Total Bilirubin AST ALT Alkaline Phosphatase Creatine Kinase Creatine Kinase Index CK-MB (CK-2) Troponin I B-Natriuretic Peptide Total Protein Albumin Influenza A (Rapid) Negative Influenza B (Rapid) Negative ASSESSMENT/PLAN: Pt.is a 69 y.o. M w/ PMHx. of HIV, Throat Ca (s/p radiation), COPD (not on home O2), ESRD (MWF), cardiac arrest x 4 (Last arrest [place] last [place] 2/2 volume overload and respiratory failure) sent in by Dr. Wu for respiratory distress. #COPD Exacerbation CXR: shows prominent hilar markings, elevated left maria eugenia-diaphragm VB.29 Temp to 100.4 in ED Given Solumedrol 125 in ED will c/w Solumedrol 40mg Q6H Given Vanc/Zosyn will c/w Levaquin for CAP coverage given fever. CXR negative for acute infiltrates Duonebs Consult to Dr. Ruby (Pulmonology) appreciated f/u BCx. and Sputum Cx. #HIV c/w home medications Per ID note Pt. had undetectable viral levels and CD4 greater than 500 in July 2019. #HTN c/w Norvasc #Nicotine Dependance Ordered Nicotine Patch #ESRD MWF Consult to Dr. Pereyra appreciated BNP: 21,493 likely 2/2 ESRD Stress Test in 05/27/19: normal EKG, mild inferior ischemia, EF:51% #FEN no IVF monitor electrolytes and replete as needed Sodium controlled diet #DVT Ppx. Hep SQ Visit type - Emergency Visit Emergency Visit: Yes ED Registration Date: 11/02/19 Care time: The patient presented to the Emergency Department on the above date and was hospitalized for further evaluation of their emergent condition. - New Patient This patient is new to me today: Yes Date on this admission: 11/02/19 - Critical Care Critical Care patient: No ATTENDING PHYSICIAN STATEMENT I saw and evaluated the patient. I reviewed the resident's note and discussed the case with the resident. I agree with the resident's findings and plan as documented. SUBJECTIVE: OBJECTIVE: ASSESSMENT AND PLAN:
--- NOTE | 2019-11-02 20:22 | PN ---
Teaching Attending Note Name of Resident: Rip Burdick ATTENDING PHYSICIAN STATEMENT I saw and evaluated the patient. I reviewed the resident's note and discussed the case with the resident. I agree with the resident's findings and plan as documented. SUBJECTIVE: reports increasing SOB OBJECTIVE: Afebrile, Hemodynamicaly Stable. Harseness of voice Last Vital Signs Temp Pulse Resp BP Pulse Ox 98.4 F 85 18 229/90 H 100 11/02/19 16:22 11/02/19 16:22 11/02/19 16:22 11/02/19 16:22 11/02/19 16:22 HEENT - Atraumatic, Normocephalic. No pharyngeal erythema/exudate. Heart - S1, S2, RRR Lungs -bilateral wheeze Abdomen - soft, non-tender. Bowel Sounds normal. Extremities - no edema, no calf tenderness. Neuro - AAO x 3. Tone/Power normal al extremities. Laboratory Results - last 24 hr 11/02/19 11/02/19 11/02/19 13:06 13:10 13:10 WBC 5.7 RBC 3.70 L Hgb 12.5 Hct 38.2 D MCV 103.2 H MCH 33.6 MCHC 32.6 RDW 16.2 H Plt Count 244 D MPV 8.8 Absolute Neuts (auto) 4.1 Neutrophils % 72.1 Lymphocytes % 17.3 D Monocytes % 9.7 Eosinophils % 0.4 Basophils % 0.5 Nucleated RBC % 0 PT with INR 13.80 H INR 1.17 H PTT (Actin FS) 37.8 H VBG pH POC VBG pCO2 POC VBG pO2 VBG HCO3 VBG O2 Sat (Marley) VBG Base Excess Sodium 136 Potassium 5.0 Chloride 101 Carbon Dioxide 26 Anion Gap 9 BUN 31.1 H Creatinine 9.9 H* Est GFR (CKD-EPI)AfAm 5.62 Est GFR (CKD-EPI)NonAf 4.85 Random Glucose 97 Lactic Acid Calcium 9.7 Total Bilirubin 0.7 AST 29 ALT 14 Alkaline Phosphatase 99 Creatine Kinase 159 Creatine Kinase Index 1.0 CK-MB (CK-2) 1.6 Troponin I < 0.02 B-Natriuretic Peptide 38118.1 H Total Protein 8.6 H Albumin 3.1 L Influenza A (Rapid) Influenza B (Rapid) 11/02/19 11/02/19 11/02/19 13:10 13:10 15:53 WBC RBC Hgb Hct MCV MCH MCHC RDW Plt Count MPV Absolute Neuts (auto) Neutrophils % Lymphocytes % Monocytes % Eosinophils % Basophils % Nucleated RBC % PT with INR INR PTT (Actin FS) VBG pH 7.29 L POC VBG pCO2 59.1 H POC VBG pO2 < 49 H VBG HCO3 27.4 VBG O2 Sat (Marley) 29.7 L VBG Base Excess 0.2 Sodium Potassium Chloride Carbon Dioxide Anion Gap BUN Creatinine Est GFR (CKD-EPI)AfAm Est GFR (CKD-EPI)NonAf Random Glucose Lactic Acid 1.9 Calcium Total Bilirubin AST ALT Alkaline Phosphatase Creatine Kinase Creatine Kinase Index CK-MB (CK-2) Troponin I B-Natriuretic Peptide Total Protein Albumin Influenza A (Rapid) Negative Influenza B (Rapid) Negative Current Medications Generic Name Dose Route Start Last Admin Trade Name Freq PRN Reason Stop Dose Admin Abacavir Sulfate 600 mg 11/03/19 10:00 Ziagen - PO DAILY [facility] Albuterol Sulfate puff 11/02/19 18:41 Ventolin Hfa Inhaler - IH PRN PRN SHORT OF BREATH/WHEEZING Albuterol/Ipratropium 1 amp 11/02/19 20:00 Duoneb - NEB RQID [facility] Amlodipine Besylate 10 mg 11/03/19 10:00 Norvasc - PO DAILY [facility] Aspirin 81 mg 11/03/19 10:00 Asa - PO DAILY [facility] Citalopram Hydrobromide 40 mg 11/03/19 10:00 Celexa - PO DAILY [facility] Heparin Sodium (Porcine) 5,000 unit 11/02/19 22:00 Heparin - SQ TID [facility] Levofloxacin 750 mg in 150 mls @ 150 mls/hr 11/03/19 10:00 Levaquin 750 Mg Premixed Ivpb - IVPB DAILY [facility] Protocol Methylprednisolone Sodium Succinate 40 mg 11/02/19 21:00 Solu-Medrol - IVPUSH Q6H-IV [facility] Nicotine 7 mg 11/02/19 19:15 Nicoderm Patch - TD DAILY [facility] Non-Formulary Medication 100 mg 11/03/19 10:00 Lamivudine [Epivir Hbv] PO DAILY [facility] Non-Formulary Medication 1 tab 11/03/19 10:00 Nevirapine [Nevirapine Er] PO DAILY [facility] Non-Formulary Medication 1 tab 11/03/19 10:00 Pravastatin Sodium PO DAILY [facility] Non-Formulary Medication 300 tab 11/02/19 22:00 Ranitidine Hcl [Ranitidine Hcl] PO HS [facility] Quinapril HCl 20 mg 11/03/19 10:00 Accupril - PO DAILY [facility] Home Medications Medication Instructions Recorded Albuterol Sulfate [Proair Hfa] 8.5 gm IH PRN PRN 07/09/18 Amlodipine Besylate [Norvasc -] 10 mg PO DAILY 07/09/18 Tiotropium [place] [Spiriva 4 gm IH BID 07/09/18 Respimat] Abacavir/Dolutegravir/Lamivudi 1 tab PO DAILY 08/31/19 [Triumeq 600-50-300 mg Tablet] Aspirin [ASA -] 1 tab PO DAILY 08/31/19 Citalopram Hydrobromide [Celexa -] 40 mg PO DAILY 08/31/19 Nevirapine [Nevirapine ER] 1 tab PO DAILY 08/31/19 Pravastatin Sodium [Pravachol -] 1 tab PO DAILY 08/31/19 Quinapril HCl 1 tab PO DAILY 08/31/19 Ranitidine HCl 300 tab PO HS 08/31/19 Umeclidinium Brm/Vilanterol Tr 1 puff IH DAILY 08/31/19 [Anoro Ellipta 62.5-25 Mcg INH] Abacavir Sulfate [Abacavir] 600 mg PO DAILY 30 Days #60 tablet 09/07/19 Dolutegravir Sodium [Tivicay] 50 mg PO DAILY #30 tablet 09/07/19 Lamivudine [Epivir Hbv] 100 mg PO DAILY #30 tablet 09/07/19 ASSESSMENT AND PLAN: 69 year old male with HIV, COPD, ESRD on HD, Throat Ca s/p RTx, Hx of cardiac arrest x 4, referred to ED by ID with complaints of SOB/cough. No hemoptysis. 1. Acute Exacerbation COPD CXR - no acute cardiopulmonary findings. Flu negative IV Solumedrol, DuoNebs, Levofloxacin Fever, no clear PNA - will send Blood/Urine/Sputum Cx. 2. Macrocytosis ? sec to meds vs deficiency. Will send B12/Folate levels. 3. ESRD on HD - Nephrology consult. 4. HIV - on HAART. ID consult. 5. Throat Ca s/p RTx at [facility]. Unclear regarding planned follow up. Progressive hoarseness of voice. Will consult Oncology for further eval and recommendations. DVT Px - Heparin SQ.
[2019-11-02] MEDS: ALBUTEROL SO4 2.5/IPRATROPIUM 0.5 INH SOL 3 ML VIAL.NEB. NEB SCH (20:35)
[2019-11-02] MEDS ORDERED: amLODIPine BESYLATE 5 MG TABLET (FP) PO STA (21:11)
[2019-11-02] MEDS ORDERED: hydrALAZINE HCL 25 MG TABLET (FP) PO STA (21:13)
[2019-11-02] MEDS ORDERED: hydrALAZINE HCL 25 MG TABLET (FP) PO ONE (21:13)
[2019-11-02] MEDS: NICOTINE 7 MG/24 HOURS TOPICAL PATCH TD SCH (21:44)
[2019-11-02] MEDS ORDERED: RANITIDINE HCL PO SCH (22:00)
[2019-11-02] MEDS ORDERED: HEPARIN NA (PORCINE) 5,000 UNITS/ML 1ML VIAL ONE (23:31)
[2019-11-02] MEDS ORDERED: hydrALAZINE HCL 25 MG TABLET (FP) ONE (23:31)
[2019-11-02] MEDS ORDERED: methylPREDNISolone NA SUCC 40 MG/1 ML VIAL ONE (23:31)
[2019-11-02] MEDS: methylPREDNISolone NA SUCC 40 MG/1 ML VIAL IVPUSH SCH (23:37)
[2019-11-02] MEDS: HEPARIN NA (PORCINE) 5,000 UNITS/ML 1ML VIAL SQ SCH (23:37)
[2019-11-03] MEDS ORDERED: amLODIPine BESYLATE 10 MG TABLET (FP) PO ONE (02:15)
[2019-11-03] MEDS ORDERED: amLODIPine BESYLATE 5 MG TABLET (FP) ONE (02:20)
[2019-11-03] MEDS ORDERED: QUINAPRIL HCL 40 MG TABLET PO ONE (03:00)
[2019-11-03 03:01] LABS: EPI CELLS 1.5 /HPF (0-5/HPF); HYALINE CASTS 0 /lpf (0-8); URINE APPEARANCE CLEAR; URINE BACTERIA 42.3 /hpf (NEGATIVE); URINE BILIRUBIN NEGATIVE (NEGATIVE); URINE COLOR YELLOW; URINE GLUCOSE (UA) TRACE (NEGATIVE); URINE KETONE NEGATIVE (NEGATIVE); URINE LEUK ESTERASE NEGATIVE (NEGATIVE); URINE NITRITE NEGATIVE (NEGATIVE); URINE PROTEIN 3+ (NEGATIVE); URINE UROBILINOGEN 0.2 mg/dL (0.2-1.0); URINE WBC 2 /hpf (0-5)
[2019-11-03] MEDS: methylPREDNISolone NA SUCC 40 MG/1 ML VIAL IVPUSH SCH ×5 (03:55→21:27)
[2019-11-03] MEDS ORDERED: BENZOCAINE/MENTH/CETYLPYRD CL 1 EACH LOZENGE MM PRN (04:12)
[2019-11-03] MEDS ORDERED: ACETAMINOPHEN WITH CODEINE 300MG/30MG TABLET PO ONE (04:12)
[2019-11-03] MEDS: HEPARIN NA (PORCINE) 5,000 UNITS/ML 1ML VIAL SQ SCH ×3 (05:23→21:37)
[2019-11-03] MEDS ORDERED: LABETALOL HCL 5 MG/1 ML (100MG/20 ML VIAL) IVPUSH ONE (06:01)
[2019-11-03] MEDS ORDERED: LABETALOL HCL 100 MG TABLET (FP) PO ONE (06:23)
[2019-11-03] MEDS ORDERED: QUINAPRIL HCL 20 MG TABLET PO ONE (09:00)
[2019-11-03 09:07] LABS: BASO % 0.1 % (0-2.0); HEMATOCRIT 34.2 % (35.4-49); HEMOGLOBIN 11.2 GM/dL (11.7-16.9); LYMPH % 4.5 % (8-40); MCH 33.2 pg (25.7-33.7); MCHC 32.7 g/dl (32.0-35.9); MEAN CELL VOLUME 101.4 fl (80-96); MEAN PLT VOLUME 8.3 fl (7.5-11.1); MONO % 1.5 % (3.8-10.2); NEUT % 93.9 % (42.8-82.8); PLATELET COUNT 224 K/MM3 (134-434); RBC 3.37 M/mm3 (4.00-5.60); RDW 15.9 % (11.9-15.9); WHITE BLOOD COUNT 6.4 K/mm3 (4.0-10.0)
[2019-11-03 09:23] LABS: INR 1.11 (0.83-1.09); PROTHROMBIN TIME (PATIENT) 13.1 SEC (9.7-13.0)
[2019-11-03] MEDS ORDERED: SODIUM CHLORIDE 250 ML IV PRN (09:24)
[2019-11-03 09:38] LABS: ALBUMIN 2.9 g/dl (3.4-5.0); BILIRUBIN,TOTAL 0.9 mg/dL (0.2-1); BLOOD UREA NITROGEN 44.6 mg/dL (7-18); CALCIUM 9.4 mg/dL (8.5-10.1); MAGNESIUM 2.5 mg/dL (1.8-2.4); PHOSPHOROUS 5.8 mg/dL (2.5-4.9); TOT PROT 7.6 g/dl (6.4-8.2)
[2019-11-03] MEDS ORDERED: lamiVUDine 10 MG/1 ML BULK BOTTLE PO SCH (10:00)
[2019-11-03] MEDS ORDERED: NEVIRAPINE PO SCH (10:00)
[2019-11-03] MEDS ORDERED: LAMIVUDINE 100 MG PO SCH (10:00)
[2019-11-03] MEDS ORDERED: ABACAVIR SULFATE 300 MG TABLET PO SCH (10:00)
[2019-11-03 10:01] LABS: CREATININE 11.7 mg/dL (0.55-1.3)
[2019-11-03 10:25] LABS: ANISOCYTOSIS 1+; MACROCYTOSIS 1+; PLATELET ESTIMATE NORMAL
--- NOTE | 2019-11-03 10:36 | CONSULT ---
Consultation: REQUESTING PROVIDER:primary team CONSULT REQUEST: We have been asked to medically evaluate this patient for ( throat cancer ). HISTORY OF PRESENT ILLNESS: Pt.is a 69 y.o. M w/ PMHx. of HIV, Throat Ca (s/p radiation), COPD (not on home O2), ESRD (MWF), cardiac arrest x 4 (Last arrest was in [place] last month 2/2 volume overload and respiratory failure) sent in by Dr. Wu for respiratory distress. Pt. denies any numbness/ tingling, abdominal pain, diarrhea or constipation. Of note Pt. states that his ex who was at bedside does not know he is HIV positive. ONLY 4 people know that he is HIV positive and therefore he is requesting discretion about his status. Pt. lives alone at home but is in the process of getting [employer]ATE [employer]. 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, was previously a heavy drinker Drugs: Denies Allergies No Known Drug Allergies Allergy (Verified 11/02/19 12:27) REVIEW OF SYSTEMS: shortness of breath wheezing , weight loss PHYSICAL EXAMINATION Vital Signs - 24 hr 11/02/19 11/02/19 11/02/19 12:15 12:20 12:30 Temperature 99.2 F Pulse Rate 85 85 Pulse Rate [ Apical] Respiratory 24 H Rate Blood Pressure 137/78 Blood Pressure [Right Arm] O2 Sat by Pulse 99 100 100 Oximetry (%) 11/02/19 11/02/19 11/02/19 12:45 16:22 20:35 Temperature 100.4 F H 98.4 F Pulse Rate Pulse Rate [ 85 77 Apical] Respiratory 18 20 Rate Blood Pressure Blood Pressure 229/90 H 212/90 H [Right Arm] O2 Sat by Pulse 100 100 Oximetry (%) 11/02/19 11/03/19 11/03/19 23:37 01:16 02:16 Temperature Pulse Rate Pulse Rate [ 73 74 87 Apical] Respiratory 18 20 18 Rate Blood Pressure Blood Pressure 192/89 H 220/90 H 170/118 H [Right Arm] O2 Sat by Pulse 99 95 95 Oximetry (%) 11/03/19 11/03/1911/03/20 02:40 03:00 04:30 Temperature 97.8 F Pulse Rate 76 77 Pulse Rate [ Apical] Respiratory 20 18 Rate Blood Pressure 184/90 H 188/89 H Blood Pressure [Right Arm] O2 Sat by Pulse 97 Oximetry (%) 11/03/19 11/03/19 06:00 09:00 Temperature 98.8 F 98.1 F Pulse Rate 89 79 Pulse Rate [ Apical] Respiratory 20 18 Rate Blood Pressure 188/89 H 151/82 Blood Pressure [Right Arm] O2 Sat by Pulse Oximetry (%) GENERAL: Awake, alert, and fully oriented, in no acute distress. HEAD: Normal with no signs of trauma. EYES: Pupils equal, round and reactive to light, extraocular movements intact, EARS, NOSE, THROAT: Moist mucous membranes.dark hyperpigmentation spots on mouth and tongue , geographic tongue NECK: Normal range of motion, supple without lymphadenopathy, no lymph nodes enlargement noted no breast mass palpated LUNGS:expiratory wheezing HEART: Regular rate and rhythm, normal S1 and S2 , RUSB murmur, ABDOMEN: Soft, nontender, not distended, normoactive bowel sounds, LOWER EXTREMITIES: 2+ pulses, warm, well-perfused. No calf tenderness. No peripheral edema. NEUROLOGICAL: no focal deficit . muffled voice PSYCHIATRIC: Cooperative. SKIN: Warm, dry, normal turgor, Laboratory Results - last 24 hr 11/02/19 11/02/19 11/02/19 13:06 13:10 13:10 WBC 5.7 RBC 3.70 L Hgb 12.5 Hct 38.2 D MCV 103.2 H MCH 33.6 MCHC 32.6 RDW 16.2 H Plt Count 244 D MPV 8.8 Absolute Neuts (auto) 4.1 Neutrophils % 72.1 Neutrophils % (Manual) Band Neutrophils % Lymphocytes % 17.3 D Lymphocytes % (Manual) Monocytes % 9.7 Monocytes % (Manual) Eosinophils % 0.4 Eosinophils % (Manual) Basophils % 0.5 Basophils % (Manual) Myelocytes % (Man) Promyelocytes % (Man) Blast Cells % (Manual) Nucleated RBC % 0 Metamyelocytes Hypochromia Platelet Estimate Polychromasia Poikilocytosis Anisocytosis Microcytosis Macrocytosis PT with INR 13.80 H INR 1.17 H PTT (Actin FS) 37.8 H VBG pH POC VBG pCO2 POC VBG pO2 VBG HCO3 VBG O2 Sat (Marley) VBG Base Excess Sodium 136 Potassium 5.0 Chloride 101 Carbon Dioxide 26 Anion Gap 9 BUN 31.1 H Creatinine 9.9 H* Est GFR (CKD-EPI)AfAm 5.62 Est GFR (CKD-EPI)NonAf 4.85 Random Glucose 97 Lactic Acid Calcium 9.7 Phosphorus Magnesium Total Bilirubin 0.7 AST 29 ALT 14 Alkaline Phosphatase 99 Creatine Kinase 159 Creatine Kinase Index 1.0 CK-MB (CK-2) 1.6 Troponin I < 0.02 B-Natriuretic Peptide 29952.1 H Total Protein 8.6 H Albumin 3.1 L Vitamin B12 1628 H Serum Folate 13 Urine Color Urine Appearance Urine pH Ur Specific [place] Urine Protein Urine Glucose (UA) Urine Ketones Urine Blood Urine Nitrite Urine Bilirubin Urine Urobilinogen Ur Leukocyte Esterase Urine WBC (Auto) Urine Casts (Auto) U Epithel Cells (Auto) Urine Bacteria (Auto) Influenza A (Rapid) Influenza B (Rapid) 11/02/19 11/02/19 11/02/19 13:10 13:10 15:53 WBC RBC Hgb Hct MCV MCH MCHC RDW Plt Count MPV Absolute Neuts (auto) Neutrophils % Neutrophils % (Manual) Band Neutrophils % Lymphocytes % Lymphocytes % (Manual) Monocytes % Monocytes % (Manual) Eosinophils % Eosinophils % (Manual) Basophils % Basophils % (Manual) Myelocytes % (Man) Promyelocytes % (Man) Blast Cells % (Manual) Nucleated RBC % Metamyelocytes Hypochromia Platelet Estimate Polychromasia Poikilocytosis Anisocytosis Microcytosis Macrocytosis PT with INR INR PTT (Actin FS) VBG pH 7.29 L POC VBG pCO2 59.1 H POC VBG pO2 < 49 H VBG HCO3 27.4 VBG O2 Sat (Marley) 29.7 L VBG Base Excess 0.2 Sodium Potassium Chloride Carbon Dioxide Anion Gap BUN Creatinine Est GFR (CKD-EPI)AfAm Est GFR (CKD-EPI)NonAf Random Glucose Lactic Acid 1.9 Calcium Phosphorus Magnesium Total Bilirubin AST ALT Alkaline Phosphatase Creatine Kinase Creatine Kinase Index CK-MB (CK-2) Troponin I B-Natriuretic Peptide Total Protein Albumin Vitamin B12 Serum Folate Urine Color Urine Appearance Urine pH Ur Specific [place] Urine Protein Urine Glucose (UA) Urine Ketones Urine Blood Urine Nitrite Urine Bilirubin Urine Urobilinogen Ur Leukocyte Esterase Urine WBC (Auto) Urine Casts (Auto) U Epithel Cells (Auto) Urine Bacteria (Auto) Influenza A (Rapid) Negative Influenza B (Rapid) Negative 11/03/19 11/03/19 11/03/19 02:30 07:58 07:58 WBC 6.4 RBC 3.37 L Hgb 11.2 L Hct 34.2 L MCV 101.4 H MCH 33.2 MCHC 32.7 RDW 15.9 Plt Count 224 MPV 8.3 Absolute Neuts (auto) 6.0 Neutrophils % 93.9 H D Neutrophils % (Manual) 93.8 H Band Neutrophils % 0.0 Lymphocytes % 4.5 L D Lymphocytes % (Manual) 4.1 L Monocytes % 1.5 L D Monocytes % (Manual) 2 L Eosinophils % 0.0 D Eosinophils % (Manual) 0.0 Basophils % 0.1 Basophils % (Manual) 0.0 Myelocytes % (Man) 0 Promyelocytes % (Man) 0 Blast Cells % (Manual) 0 Nucleated RBC % 0 Metamyelocytes 0 Hypochromia 0 Platelet Estimate Normal Polychromasia 0 Poikilocytosis 0 Anisocytosis 1+ Microcytosis 0 Macrocytosis 1+ PT with INR 13.10 H INR 1.11 H PTT (Actin FS) VBG pH POC VBG pCO2 POC VBG pO2 VBG HCO3 VBG O2 Sat (Marley) VBG Base Excess Sodium Potassium Chloride Carbon Dioxide Anion Gap BUN Creatinine Est GFR (CKD-EPI)AfAm Est GFR (CKD-EPI)NonAf Random Glucose Lactic Acid Calcium Phosphorus Magnesium Total Bilirubin AST ALT Alkaline Phosphatase Creatine Kinase Creatine Kinase Index CK-MB (CK-2) Troponin I B-Natriuretic Peptide Total Protein Albumin Vitamin B12 Serum Folate Urine Color Yellow Urine Appearance Clear Urine pH 7.0 Ur Specific [place] 1.013 Urine Protein 3+ H Urine Glucose (UA) Trace Urine Ketones Negative Urine Blood Trace Urine Nitrite Negative Urine Bilirubin Negative Urine Urobilinogen 0.2 Ur Leukocyte Esterase Negative Urine WBC (Auto) 2 Urine Casts (Auto) 0 U Epithel Cells (Auto) 1.5 Urine Bacteria (Auto) 42.3 Influenza A (Rapid) Influenza B (Rapid) 11/03/19 07:58 WBC RBC Hgb Hct MCV MCH MCHC RDW Plt Count MPV Absolute Neuts (auto) Neutrophils % Neutrophils % (Manual) Band Neutrophils % Lymphocytes % Lymphocytes % (Manual) Monocytes % Monocytes % (Manual) Eosinophils % Eosinophils % (Manual) Basophils % Basophils % (Manual) Myelocytes % (Man) Promyelocytes % (Man) Blast Cells % (Manual) Nucleated RBC % Metamyelocytes Hypochromia Platelet Estimate Polychromasia Poikilocytosis Anisocytosis Microcytosis Macrocytosis PT with INR INR PTT (Actin FS) VBG pH POC VBG pCO2 POC VBG pO2 VBG HCO3 VBG O2 Sat (Marley) VBG Base Excess Sodium 139 Potassium 4.0 Chloride 105 Carbon Dioxide 22 Anion Gap 12 BUN 44.6 H Creatinine 11.7 H* Est GFR (CKD-EPI)AfAm 4.59 Est GFR (CKD-EPI)NonAf 3.96 Random Glucose 118 H Lactic Acid Calcium 9.4 Phosphorus 5.8 H Magnesium 2.5 H Total Bilirubin 0.9 AST 11 L ALT 11 L Alkaline Phosphatase 85 Creatine Kinase Creatine Kinase Index CK-MB (CK-2) Troponin I B-Natriuretic Peptide Total Protein 7.6 Albumin 2.9 L Vitamin B12 Serum Folate Urine Color Urine Appearance Urine pH Ur Specific [place] Urine Protein Urine Glucose (UA) Urine Ketones Urine Blood Urine Nitrite Urine Bilirubin Urine Urobilinogen Ur Leukocyte Esterase Urine WBC (Auto) Urine Casts (Auto) U Epithel Cells (Auto) Urine Bacteria (Auto) Influenza A (Rapid) Influenza B (Rapid) Active Medications Generic Name Dose Route Start Last Admin Trade Name Freq PRN Reason Stop Dose Admin Abacavir Sulfate 600 mg 11/03/19 10:00 Ziagen - PO DAILY JIMENEZ Albuterol Sulfate 2 puff 11/02/19 18:41 Ventolin Hfa Inhaler - IH Q6H PRN SHORT OF BREATH/WHEEZING Albuterol/Ipratropium 1 amp 11/02/19 20:00 11/02/19 20:35 Duoneb - NEB Not Given RQID JIMENEZ Amlodipine Besylate 10 mg 11/03/19 10:00 Norvasc - PO DAILY JIMENEZ Aspirin 81 mg 11/03/19 10:00 Asa - PO DAILY JIMENEZ Benzocaine/Menthol 1 each 11/03/19 04:12 Cepacol Lozenge - MM PRN PRN SORE THROAT Citalopram Hydrobromide 40 mg 11/03/19 10:00 Celexa - PO DAILY JIMENEZ Famotidine 20 mg 11/03/19 22:00 Pepcid - PO HS JIMENEZ Heparin Sodium (Porcine) 5,000 unit 11/02/19 22:00 11/03/19 05:23 Heparin - SQ 5,000 unit TID JIMENEZ Administration Levofloxacin 500 mg in 100 mls @ 100 mls/hr 11/05/19 08:00 Levaquin 500 Mg Premixed Ivpb - IVPB Q2D@0800 JIMENEZ Protocol Sodium Chloride 250 mls @ 3,000 mls/hr 11/03/19 09:24 Normal Saline - IV 11/04/19 09:24 PRN PRN Hypotension during Dialysis Lamivudine 100 mg 11/03/19 10:00 Epivir Oral Solution - PO DAILY JIMENEZ Methylprednisolone Sodium Succinate 40 mg 11/02/19 21:00 11/03/19 03:55 Solu-Medrol - IVPUSH 40 mg Q6H-IV JIMENEZ Administration Nicotine 7 mg 11/02/19 19:15 11/02/19 21:44 Nicoderm Patch - TD 7 mg DAILY JIMENEZ Administration Non-Formulary Medication 1 tab 11/03/19 10:00 Nevirapine [Nevirapine Er] PO DAILY JIMENEZ Non-Formulary Medication 1 tab 11/03/19 10:00 Pravastatin Sodium PO DAILY JIMENEZ Quinapril HCl 20 mg 11/03/19 10:00 Accupril - PO DAILY JIMENEZ CBC, BMP 11/03/19 07:58 11/03/19 07:58 ASSESSMENT/PLAN:pending discussuin with Dr Voss 69 year old male with HIV, COPD, ESRD on HD, Throat Ca s/p RTx, Hx of cardiac arrest x 4, referred to ED by ID with complaints of SOB/cough. No hemoptysis. #Throat Ca S/P radiation diagnosed 3 years ago , recieved 8 weeks of radiation 2 years ago, reports 20 pound weight loss in last 2 months , had chest cT in May with LRONA mass will reeat Ct chest today obtain records from [facility] repeat Ct scan in 3-4 months # Macrocytic anemia may be related to HAART medication , will work up for protein studies , TSH , FA , B12 , iron studies # COPD exacerbation # HIV positive on HAART # ESRD on HD Dispo: We will continue to follow the patient. Thank you for this consultative opportunity. Visit type - Emergency Visit Emergency Visit: Yes ED Registration Date: 11/02/19 Care time: The patient presented to the Emergency Department on the above date and was hospitalized for further evaluation of their emergent condition. - New Patient This patient is new to me today: Yes Date on this admission: 11/03/19 - Critical Care Critical Care patient: No ATTENDING PHYSICIAN STATEMENT I saw and evaluated the patient. I reviewed the resident's note and discussed the case with the resident. I agree with the resident's findings and plan as documented. SUBJECTIVE: OBJECTIVE: ASSESSMENT AND PLAN:
--- NOTE | 2019-11-03 12:18 | CON.PULM ---
Consult Consult Specialty:: PULMONARY Referred by:: Dr Pineda Reason for Consultation:: shortness of breath - History of Present Illness Chief Complaint: shortness of breath History of Present Illness: 69yo male with h/o HTN, hyperlipidemia, COPD, ESRD on HD, HIV, throat ca s/p RT who was admitted with worsening shortness of breath x 2 weeks. Denies chest pain or palpitations. No fevers, chills or sweats but with a cough productive of yellow sputum. Reports orthopnea and chest tightness. Used his nebulizer at home without significant relief. Still smoking cigarettes. Received solumedrol and bronchodilators with improvement in symptoms. Last CT chest in May showing emphysematous changes and a LORNA nodule/cavitary lesion. - History Source History Provided By: Patient, Medical Record Limitations to Obtaining History: No Limitations - Past Medical History Cardio/Vascular: Yes: HTN, Hyperlipdemia Pulmonary: Yes: COPD Gastrointestinal: Yes: Constipation, GERD Hepatobiliary: Yes: Other Renal/: Yes: Renal Inusuff, BPH Infectious Disease: Yes: HIV, STD's Musculoskeletal: Yes: Chronic low back pain Endocrine: Yes: Diabetes Mellitus (with retinopathy and nephropathy) Additional Medical History: Recovering alcoholic x 8 years. 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 [employer] History of Recent Travel: No Home Medications - Allergies Allergies/Adverse Reactions: Allergies Allergy/AdvReac Type Severity Reaction Status Date / Time No Known Drug Allergies Allergy Verified 11/02/19 12:27 - Home Medications Home Medications: Ambulatory Orders Albuterol Sulfate [Proair Hfa] 8.5 gm IH PRN PRN 07/09/18 Amlodipine Besylate [Norvasc -] 10 mg PO DAILY 07/09/18 Tiotropium [place] [Spiriva Respimat] 4 gm IH BID 07/09/18 Abacavir/Dolutegravir/Lamivudi [Triumeq 600-50-300 mg Tablet] 1 tab PO DAILY 10/07 Aspirin [ASA -] 1 tab PO DAILY 08/31/19 Citalopram Hydrobromide [Celexa -] 40 mg PO DAILY 08/31/19 Nevirapine [Nevirapine ER] 1 tab PO DAILY 08/31/19 Pravastatin Sodium [Pravachol -] 1 tab PO DAILY 08/31/19 Quinapril HCl 1 tab PO DAILY 08/31/19 Ranitidine HCl 300 tab PO HS 08/31/19 Umeclidinium Brm/Vilanterol Tr [Anoro Ellipta 62.5-25 Mcg INH] 1 puff IH DAILY 08/31/19 Abacavir Sulfate [Abacavir] 600 mg PO DAILY 30 Days #60 tablet 09/07/19 Dolutegravir Sodium [Tivicay] 50 mg PO DAILY #30 tablet 09/07/19 Lamivudine [Epivir Hbv] 100 mg PO DAILY #30 tablet 09/07/19 Review of Systems - Review of Systems Constitutional: denies: Chills, Fever Eyes: denies: Recent Change in Vision HENT: reports: Throat Pain. denies: Nasal Congestion Neck: denies: Stiffness, Tenderness Cardiovascular: reports: Shortness of Breath. denies: Chest Pain, Palpitations Respiratory: reports: Cough, Orthopnea, SOB on Exertion. denies: Hemoptysis, Wheezing Gastrointestinal: denies: Abdominal Pain, Nausea, Vomiting Genitourinary: denies: Dysuria, Hematuria Neurological: denies: Dizziness, Headache Endocrine: denies: Unexplained Weight Loss Physical Exam Vital Sings: Vital Signs Temperature 98.1 F 11/03/19 09:00 Pulse Rate 79 11/03/19 09:00 Respiratory Rate 18 11/03/19 09:00 Blood Pressure 151/82 11/03/19 09:00 O2 Sat by Pulse Oximetry (%) 97 11/03/19 03:00 Constitutional: Yes: Calm Eyes: Yes: Conjunctiva Clear, EOM Intact HENT: Yes: Atraumatic, Normocephalic Neck: Yes: Supple, Trachea Midline Cardiovascular: Yes: Regular Rate and Rhythm Respiratory: Yes: Poor Air Entry, Wheezes ...Clubbing: No Gastrointestinal: Yes: Normal Bowel Sounds, Soft. No: Tenderness Edema: No Neurological: Yes: Alert, Oriented Labs: CBC, BMP 11/03/19 07:58 11/03/19 07:58 Imaging - Results Chest X-ray: Report Reviewed, Image Reviewed (RLL infiltrate) Problem List - Problems (1) COPD exacerbation Code(s): J44.1 - CHRONIC OBSTRUCTIVE PULMONARY DISEASE W (ACUTE) EXACERBATION Assessment/Plan Acute COPD Exacerbation r/o Pneumonia ESRD on HD HIV Throat Ca s/p RT HTN Hyperlipidemia Smoker - continue antibiotics - f/u cultures - inhaled bronchodilators - continue medrol - O2 to keep Spo2 >90% - CT chest noncontrast to re-evaluate LORNA lesion - smoking cessation - HD per renal - DVT prophylaxis Thank you for this consult Enrrique Small MD
--- NOTE | 2019-11-03 14:33 | PN ---
Teaching Attending Note Name of Resident: Salas Horan ATTENDING PHYSICIAN STATEMENT I saw and evaluated the patient. I reviewed the resident's note and discussed the case with the resident. I agree with the resident's findings and plan as documented. SUBJECTIVE: improvement in SOB. No further fevers/chills. OBJECTIVE: Afebrile, Hemodynamicaly Stable. Harseness of voice Last Vital Signs Temp Pulse Resp BP Pulse Ox 98.1 F 79 18 151/82 95 11/03/19 09:00 11/03/19 09:00 11/03/19 09:00 11/03/19 09:00 11/03/19 10:00 HEENT - Atraumatic, Normocephalic. No pharyngeal erythema/exudate. Heart - S1, S2, RRR Lungs - sig improvement in bilateral wheeze Abdomen - soft, non-tender. Bowel Sounds normal. Extremities - no edema, no calf tenderness. Neuro - AAO x 3. Tone/Power normal al extremities. Laboratory Results - last 24 hr 11/02/19 11/02/19 11/02/19 13:06 13:10 15:53 WBC RBC Hgb Hct MCV MCH MCHC RDW Plt Count MPV Absolute Neuts (auto) Neutrophils % Neutrophils % (Manual) Band Neutrophils % Lymphocytes % Lymphocytes % (Manual) Monocytes % Monocytes % (Manual) Eosinophils % Eosinophils % (Manual) Basophils % Basophils % (Manual) Myelocytes % (Man) Promyelocytes % (Man) Blast Cells % (Manual) Nucleated RBC % Metamyelocytes Hypochromia Platelet Estimate Polychromasia Poikilocytosis Anisocytosis Microcytosis Macrocytosis PT with INR INR Sodium 136 Potassium 5.0 Chloride 101 Carbon Dioxide 26 Anion Gap 9 BUN 31.1 H Creatinine 9.9 H* Est GFR (CKD-EPI)AfAm 5.62 Est GFR (CKD-EPI)NonAf 4.85 Random Glucose 97 Lactic Acid 1.9 Calcium 9.7 Phosphorus Magnesium Total Bilirubin 0.7 AST 29 ALT 14 Alkaline Phosphatase 99 Creatine Kinase 159 Creatine Kinase Index 1.0 CK-MB (CK-2) 1.6 Troponin I < 0.02 B-Natriuretic Peptide 10344.1 H Total Protein 8.6 H Albumin 3.1 L Vitamin B12 1628 H Serum Folate 13 Urine Color Urine Appearance Urine pH Ur Specific [place] Urine Protein Urine Glucose (UA) Urine Ketones Urine Blood Urine Nitrite Urine Bilirubin Urine Urobilinogen Ur Leukocyte Esterase Urine WBC (Auto) Urine Casts (Auto) U Epithel Cells (Auto) Urine Bacteria (Auto) Influenza A (Rapid) Negative Influenza B (Rapid) Negative 11/03/19 11/03/19 11/03/19 02:30 07:58 07:58 WBC 6.4 RBC 3.37 L Hgb 11.2 L Hct 34.2 L MCV 101.4 H MCH 33.2 MCHC 32.7 RDW 15.9 Plt Count 224 MPV 8.3 Absolute Neuts (auto) 6.0 Neutrophils % 93.9 H D Neutrophils % (Manual) 93.8 H Band Neutrophils % 0.0 Lymphocytes % 4.5 L D Lymphocytes % (Manual) 4.1 L Monocytes % 1.5 L D Monocytes % (Manual) 2 L Eosinophils % 0.0 D Eosinophils % (Manual) 0.0 Basophils % 0.1 Basophils % (Manual) 0.0 Myelocytes % (Man) 0 Promyelocytes % (Man) 0 Blast Cells % (Manual) 0 Nucleated RBC % 0 Metamyelocytes 0 Hypochromia 0 Platelet Estimate Normal Polychromasia 0 Poikilocytosis 0 Anisocytosis 1+ Microcytosis 0 Macrocytosis 1+ PT with INR 13.10 H INR 1.11 H Sodium Potassium Chloride Carbon Dioxide Anion Gap BUN Creatinine Est GFR (CKD-EPI)AfAm Est GFR (CKD-EPI)NonAf Random Glucose Lactic Acid Calcium Phosphorus Magnesium Total Bilirubin AST ALT Alkaline Phosphatase Creatine Kinase Creatine Kinase Index CK-MB (CK-2) Troponin I B-Natriuretic Peptide Total Protein Albumin Vitamin B12 Serum Folate Urine Color Yellow Urine Appearance Clear Urine pH 7.0 Ur Specific [place] 1.013 Urine Protein 3+ H Urine Glucose (UA) Trace Urine Ketones Negative Urine Blood Trace Urine Nitrite Negative Urine Bilirubin Negative Urine Urobilinogen 0.2 Ur Leukocyte Esterase Negative Urine WBC (Auto) 2 Urine Casts (Auto) 0 U Epithel Cells (Auto) 1.5 Urine Bacteria (Auto) 42.3 Influenza A (Rapid) Influenza B (Rapid) 11/03/19 07:58 WBC RBC Hgb Hct MCV MCH MCHC RDW Plt Count MPV Absolute Neuts (auto) Neutrophils % Neutrophils % (Manual) Band Neutrophils % Lymphocytes % Lymphocytes % (Manual) Monocytes % Monocytes % (Manual) Eosinophils % Eosinophils % (Manual) Basophils % Basophils % (Manual) Myelocytes % (Man) Promyelocytes % (Man) Blast Cells % (Manual) Nucleated RBC % Metamyelocytes Hypochromia Platelet Estimate Polychromasia Poikilocytosis Anisocytosis Microcytosis Macrocytosis PT with INR INR Sodium 139 Potassium 4.0 Chloride 105 Carbon Dioxide 22 Anion Gap 12 BUN 44.6 H Creatinine 11.7 H* Est GFR (CKD-EPI)AfAm 4.59 Est GFR (CKD-EPI)NonAf 3.96 Random Glucose 118 H Lactic Acid Calcium 9.4 Phosphorus 5.8 H Magnesium 2.5 H Total Bilirubin 0.9 AST 11 L ALT 11 L Alkaline Phosphatase 85 Creatine Kinase Creatine Kinase Index CK-MB (CK-2) Troponin I B-Natriuretic Peptide Total Protein 7.6 Albumin 2.9 L Vitamin B12 Serum Folate Urine Color Urine Appearance Urine pH Ur Specific [place] Urine Protein Urine Glucose (UA) Urine Ketones Urine Blood Urine Nitrite Urine Bilirubin Urine Urobilinogen Ur Leukocyte Esterase Urine WBC (Auto) Urine Casts (Auto) U Epithel Cells (Auto) Urine Bacteria (Auto) Influenza A (Rapid) Influenza B (Rapid) Current Medications Generic Name Dose Route Start Last Admin Trade Name Freq PRN Reason Stop Dose Admin Abacavir Sulfate 600 mg 11/03/19 10:00 Ziagen - PO DAILY [facility] Albuterol Sulfate 2 puff 11/02/19 18:41 Ventolin Hfa Inhaler - IH Q6H PRN SHORT OF BREATH/WHEEZING Albuterol/Ipratropium 1 amp 11/02/19 20:00 11/02/19 20:35 Duoneb - NEB Not Given RQID [facility] Amlodipine Besylate 10 mg 11/03/19 10:00 Norvasc - PO DAILY [facility] Aspirin 81 mg 11/03/19 10:00 Asa - PO DAILY [facility] Benzocaine/Menthol 1 each 11/03/19 04:12 Cepacol Lozenge - MM PRN PRN SORE THROAT Citalopram Hydrobromide 40 mg 11/03/19 10:00 Celexa - PO DAILY [facility] Famotidine 20 mg 11/03/19 22:00 Pepcid - PO HS [facility] Heparin Sodium (Porcine) 5,000 unit 11/02/19 22:00 11/03/19 05:23 Heparin - SQ 5,000 unit TID [facility] Administration Levofloxacin 500 mg in 100 mls @ 100 mls/hr 11/05/19 08:00 Levaquin 500 Mg Premixed Ivpb - IVPB Q2D@0800 [facility] Protocol Sodium Chloride 250 mls @ 3,000 mls/hr 11/03/19 09:24 Normal Saline - IV 11/04/19 09:24 PRN PRN Hypotension during Dialysis Lamivudine 100 mg 11/03/19 10:00 Epivir Oral Solution - PO DAILY [facility] Methylprednisolone Sodium Succinate 40 mg 11/02/19 21:00 11/03/19 10:53 Solu-Medrol - IVPUSH 40 mg Q6H-IV [facility] Administration Nicotine 7 mg 11/02/19 19:15 11/02/19 21:44 Nicoderm Patch - TD 7 mg DAILY [facility] Administration Non-Formulary Medication 1 tab 11/03/19 10:00 Nevirapine [Nevirapine Er] PO DAILY [facility] Non-Formulary Medication 1 tab 11/03/19 10:00 Pravastatin Sodium PO DAILY [facility] Quinapril HCl 20 mg 11/03/19 10:00 Accupril - PO DAILY [facility] Home Medications Medication Instructions Recorded Albuterol Sulfate [Proair Hfa] 8.5 gm IH PRN PRN 07/09/18 Amlodipine Besylate [Norvasc -] 10 mg PO DAILY 07/09/18 Tiotropium [place] [Spiriva 4 gm IH BID 07/09/18 Respimat] Abacavir/Dolutegravir/Lamivudi 1 tab PO DAILY 08/31/19 [Triumeq 600-50-300 mg Tablet] Aspirin [ASA -] 1 tab PO DAILY 08/31/19 Citalopram Hydrobromide [Celexa -] 10 mg PO DAILY 08/31/19 Nevirapine [Nevirapine ER] 1 tab PO DAILY 08/31/19 Pravastatin Sodium [Pravachol -] 1 tab PO DAILY 08/31/19 Quinapril HCl 1 tab PO DAILY 08/31/19 Ranitidine HCl 300 mg PO HS 08/31/19 Umeclidinium Brm/Vilanterol Tr 1 puff IH DAILY 08/31/19 [Anoro Ellipta 62.5-25 Mcg INH] Abacavir Sulfate [Abacavir] 600 mg PO DAILY 30 Days #60 tablet 09/07/19 Dolutegravir Sodium [Tivicay] 50 mg PO DAILY #30 tablet 09/07/19 Lamivudine [Epivir Hbv] 100 mg PO DAILY #30 tablet 09/07/19 Abacavir Sulfate [Abacavir] 300 mg PO BID 11/03/19 ASSESSMENT AND PLAN: 69 year old male with HIV, HTN, HLD, COPD, ESRD on HD, Throat Ca s/p RTx, Hx of cardiac arrest x 4, referred to ED by ID with complaints of SOB/cough. No hemoptysis. 1. Acute Exacerbation COPD CXR - no acute cardiopulmonary findings. Flu negative IV Solumedrol, DuoNebs, Levofloxacin Fever, no clear PNA - Blood/Sputum Cx pending. UA negative. Seen by Pulm - Chest CT requested. Normally on Spiriva, Anoro Ellipta 2. Macrocytosis ? sec to meds vs deficiency. B12/Folate wnl. Hem/Onc following. 3. ESRD on HD - Nephrology consulted. 4. HIV - on HAART. ID consulted. 5. Throat Ca s/p RTx at [facility]. Unclear regarding planned follow up. Progressive hoarseness of voice. Will consult Oncology for further eval and recommendations. 6. LORNA Lung Lsion on prior CT imaging ? malignancy - primary vs mets. Repeat CT Chest pending. 7. HTN - continue Quinapril, Norvasc. 8. Depression/Anxiety - continue Celexa. 9. HLD - Continue Statin. DVT Px - Heparin SQ.
--- NOTE | 2019-11-03 15:40 | CONSULT ---
Consult - text type - Consultation Consultation Note: Renal consult for ESRD on HD This is a 69 year old gentleman with history of ESRD on HD (MWF), hypertension, COPD, Throat cancer s/p radiation therapy, current smoker, HIV, hx of cardiac arrest who presented from ID doctors office with respiratory distress and admitted for shortness of breath secondary to COPD exacerbation. Last dialysis was Friday. He reports feeling better after getting his neb tx and steroids. Denies any chest pain, palpitations, Abd pain, N/V/D. His voice is weak but reports that he had followed up with his ENT and there was no recurrence of his throat cancer. PMHx: as above Allergies: NKDA Family Hx: NC Social Hx: current smoker ROS: as per HPI, all other pertinent ros negative Home Medications Medication Instructions Recorded Albuterol Sulfate [Proair Hfa] 8.5 gm IH PRN PRN 07/09/18 Amlodipine Besylate [Norvasc -] 10 mg PO DAILY 07/09/18 Tiotropium [place] [Spiriva 4 gm IH BID 07/09/18 Respimat] Aspirin [ASA -] 1 tab PO DAILY 08/31/19 Citalopram Hydrobromide [Celexa -] 10 mg PO DAILY 08/31/19 Ranitidine HCl 300 mg PO HS 08/31/19 Umeclidinium Brm/Vilanterol Tr 1 puff IH DAILY 08/31/19 [Anoro Ellipta 62.5-25 Mcg INH] Dolutegravir Sodium [Tivicay] 50 mg PO DAILY #30 tablet 09/07/19 Abacavir Sulfate [Abacavir] 300 mg PO BID 11/03/19 Albuterol Sulfate Inhaler - 2 puff PO Q6H PRN 11/03/19 [Ventolin HFA Inhaler -] Aspirin [ASA -] 81 mg PO DAILY 11/03/19 Fluticasone/Umeclidin/Vilanter 1 puff PO DAILY 11/03/19 [Trelegy Ellipta 100-62.5-25] Hydralazine HCl 1 tab PO TID 11/03/19 Labetalol HCl [Normodyne -] 300 mg PO BID 11/03/19 Nifedipine ER [Procardia XL -] 1 tab PO DAILY 11/03/19 Sevelamer Carbonate [Renvela -] 2 tab PO TID 11/03/19 Sucroferric Oxyhydroxide [Velphoro] 500 mg PO TID 11/03/19 Torsemide 1 tab PO DAILY 11/03/19 Vital Signs Temperature 98.3 F 11/03/19 14:55 Pulse Rate 79 11/03/19 15:00 Respiratory Rate 18 11/03/19 15:00 Blood Pressure 192/85 H 11/03/19 15:00 O2 Sat by Pulse Oximetry (%) 95 11/03/19 10:00 Intake & Output 10/31/19 11/01/19 11/02/19 11/03/19 23:59 23:59 23:59 23:59 Intake Total 550 Output Total 0 Balance 550 Weight 77.111 kg 76.289 kg NAD awake and alert neck supple RRR, no M/R CTA, no wheeze or rales soft NT/ND no LE edema left arm AVF CBC, BMP 11/03/19 07:58 11/03/19 07:58 Current Medications Abacavir Sulfate (Ziagen -) 600 mg PO DAILY [facility] Albuterol Sulfate (Ventolin Hfa Inhaler -) 2 puff IH Q6H PRN PRN Reason: SHORT OF BREATH/WHEEZING Albuterol/Ipratropium (Duoneb -) 1 amp NEB RQID [facility] Last Admin: 11/02/19 20:35 Dose: Not Given Amlodipine Besylate (Norvasc -) 10 mg PO DAILY [facility] Aspirin (Asa -) 81 mg PO DAILY [facility] Benzocaine/Menthol (Cepacol Lozenge -) 1 each MM PRN PRN PRN Reason: SORE THROAT Citalopram Hydrobromide (Celexa -) 40 mg PO DAILY [facility] Famotidine (Pepcid -) 20 mg PO HS [facility] Heparin Sodium (Porcine) (Heparin -) 5,000 unit SQ TID [facility] Last Admin: 11/03/19 05:23 Dose: 5,000 unit Levofloxacin (Levaquin 500 Mg Premixed Ivpb -) 500 mg in 100 mls @ 100 mls/hr IVPB Q2D@0800 [facility]; Protocol Sodium Chloride (Normal Saline -) 250 mls @ 3,000 mls/hr IV PRN PRN PRN Reason: Hypotension during Dialysis Stop: 11/04/19 09:24 Lamivudine (Epivir Oral Solution -) 100 mg PO DAILY [facility] Methylprednisolone Sodium Succinate (Solu-Medrol -) 40 mg IVPUSH Q6H-IV [facility] Last Admin: 11/03/19 10:53 Dose: 40 mg Nicotine (Nicoderm Patch -) 7 mg TD DAILY [facility] Last Admin: 11/02/19 21:44 Dose: 7 mg Non-Formulary Medication (Nevirapine [Nevirapine Er]) 1 tab PO DAILY [facility] Non-Formulary Medication (Pravastatin Sodium) 1 tab PO DAILY [facility] Quinapril HCl (Accupril -) 20 mg PO DAILY [facility] 69 year old gentleman with history of ESRD on HD (MWF), hypertension, COPD, Throat cancer s/p radiation therapy, current smoker, HIV, hx of cardiac arrest who presented from ID doctors office with respiratory distress and admitted for shortness of breath secondary to COPD exacerbation. 1. Shortness of breath secondary to COPD exacerbation 2. ESRD on HD 3. CKD related anemia 4. Hypertension 5. Hx of Cardiac arrest continue nebs/steroids as per pulmonary f/u CT chest readings for HD today with aggressive UF as tolerated Renal diet, 1.2L fluid restriction Hgb at goal for CKD5 on dialysis, will defer DIONNA Continue amlodipine 10mg daily, can consider changing Quiniapril to Losartan 100mg daily. Consider cardiology consult given history of cardiac arrest of uncertain etiology as he may benifit from ischemic work up Thank you Trey Pereyra DO
[2019-11-03] MEDS ORDERED: ALBUTEROL SO4 HFA INHALER IH PRN (15:54)
--- NOTE | 2019-11-03 15:59 | PN ---
Physical Exam: SUBJECTIVE: Patient seen and examined 69 y/o M, pmh of HIV, throat cancer s/p radiation at [place], COPD not on home O2, ESRD (on dialysis M/W/F), cardiac arreswt x4 (last arrest was last month), was sent over to the hospital by Dr. Wu for respiratory distress. Currently, pt has significantly improved and doing well. He is not on oxygen and is saturating well. He has difficulty speaking which is chronic from his neck radiation. Denies f/c/n/v/d/chest pain. OBJECTIVE: Vital Signs Period Temp Pulse Resp BP Sys/Montes Pulse Ox Last 24 Hr 97.8 F-98.8 F 73-89 18-20 151-229/82-118 95-100 GENERAL: The patient is awake, alert, and fully oriented, in no acute distress. EYES: PERRL, extraocular movements intact, sclera anicteric, conjunctiva clear. No ptosis. ENT: oropharynx clear without exudates, moist mucous membranes. NECK: Trachea midline, supple. Difficulty speaking due to chronic hoarseness LUNGS: Breath sounds equal, CTAB, wheezes b/l, no crackles HEART: Regular rate and rhythm, S1, S2 without murmur, rub or gallop. ABDOMEN: Soft, nontender, nondistended, normoactive bowel sounds, no guarding EXTREMITIES: 2+ pulses, warm, well-perfused, no edema. NEUROLOGICAL: Normal speech, gait not observed. PSYCH: Normal mood, normal affect. SKIN: Warm, dry, normal turgor Laboratory Results - last 24 hr CBC,CMP WBC 6.4 K/mm3 (4.0-10.0) 11/03/19 07:58 RBC 3.37 M/mm3 (4.00-5.60) L 11/03/19 07:58 Hgb 11.2 GM/dL (11.7-16.9) L 11/03/19 07:58 Hct 34.2 % (35.4-49) L 11/03/19 07:58 MCV 101.4 fl (80-96) H 11/03/19 07:58 MCH 33.2 pg (25.7-33.7) 11/03/19 07:58 MCHC 32.7 g/dl (32.0-35.9) 11/03/19 07:58 RDW 15.9 % (11.9-15.9) 11/03/19 07:58 Plt Count 224 K/MM3 (134-434) 11/03/19 07:58 MPV 8.3 fl (7.5-11.1) 11/03/19 07:58 Absolute Neuts (auto) 6.0 K/mm3 (1.5-8.0) 11/03/19 07:58 Neutrophils % 93.9 % (42.8-82.8) H D 11/03/19 07:58 Neutrophils % (Manual) 93.8 % (42.8-82.8) H 11/03/19 07:58 Band Neutrophils % 0.0 % 11/03/19 07:58 Lymphocytes % 4.5 % (8-40) L D 11/03/19 07:58 Lymphocytes % (Manual) 4.1 % (8-40) L 11/03/19 07:58 Monocytes % 1.5 % (3.8-10.2) L D 11/03/19 07:58 Monocytes % (Manual) 2 % (3.8-10.2) L 11/03/19 07:58 Eosinophils % 0.0 % (0-4.5) D 11/03/19 07:58 Eosinophils % (Manual) 0.0 % (0-4.5) 11/03/19 07:58 Basophils % 0.1 % (0-2.0) 11/03/19 07:58 Basophils % (Manual) 0.0 % (0-2.0) 11/03/19 07:58 Myelocytes % (Man) 0 % (0-2) 11/03/19 07:58 Promyelocytes % (Man) 0 % (0-2) 11/03/19 07:58 Blast Cells % (Manual) 0 % (0-0) 11/03/19 07:58 Nucleated RBC % 0 % (0-0) 11/03/19 07:58 Metamyelocytes 0 % (0-2) 11/03/19 07:58 Hypochromia 0 11/03/19 07:58 Platelet Estimate Normal 11/03/19 07:58 Polychromasia 0 11/03/19 07:58 Poikilocytosis 0 11/03/19 07:58 Anisocytosis 1+ 11/03/19 07:58 Microcytosis 0 11/03/19 07:58 Macrocytosis 1+ 11/03/19 07:58 Sodium 139 mmol/L (136-145) 11/03/19 07:58 Potassium 4.0 mmol/L (3.5-5.1) 11/03/19 07:58 Chloride 105 mmol/L (98-107) 11/03/19 07:58 Carbon Dioxide 22 mmol/L (21-32) 11/03/19 07:58 Anion Gap 12 MMOL/L (8-16) 11/03/19 07:58 BUN 44.6 mg/dL (7-18) H 11/03/19 07:58 Creatinine 11.7 mg/dL (0.55-1.3) H* 11/03/19 07:58 Est GFR (CKD-EPI)AfAm 4.59 11/03/19 07:58 Est GFR (CKD-EPI)NonAf 3.96 11/03/19 07:58 Random Glucose 118 mg/dL (74-106) H 11/03/19 07:58 Lactic Acid 1.9 mmol/L (0.4-2.0) 11/02/19 13:10 Calcium 9.4 mg/dL (8.5-10.1) 11/03/19 07:58 Phosphorus 5.8 mg/dL (2.5-4.9) H 11/03/19 07:58 Magnesium 2.5 mg/dL (1.8-2.4) H 11/03/19 07:58 Total Bilirubin 0.9 mg/dL (0.2-1) 11/03/19 07:58 AST 11 U/L (15-37) L 11/03/19 07:58 ALT 11 U/L (13-61) L 11/03/19 07:58 Alkaline Phosphatase 85 U/L (45-117) 11/03/19 07:58 Creatine Kinase 159 U/L (26-308) 11/02/19 13:06 Creatine Kinase Index 1.0 % (0.0-5.0) 11/02/19 13:06 CK-MB (CK-2) 1.6 ng/mL (0.5-3.6) 11/02/19 13:06 Troponin I < 0.02 ng/ml (0.00-0.05) 11/02/19 13:06 B-Natriuretic Peptide 43731.1 pg/ml (5-125) H 11/02/19 13:06 Total Protein 7.6 g/dl (6.4-8.2) 11/03/19 07:58 Albumin 2.9 g/dl (3.4-5.0) L 11/03/19 07:58 Vitamin B12 1628 pg/ml (193-986) H 11/02/19 13:06 Serum Folate 13 ng/mL (3.1-17.5) 11/02/19 13:06 Active Medications Current Medications Abacavir Sulfate (Ziagen -) 600 mg PO DAILY [facility] Albuterol Sulfate (Ventolin Hfa Inhaler -) 2 puff IH Q6H PRN PRN Reason: SHORT OF BREATH/WHEEZING Albuterol/Ipratropium (Duoneb -) 1 amp NEB RQID [facility] Last Admin: 11/02/19 20:35 Dose: Not Given Amlodipine Besylate (Norvasc -) 10 mg PO DAILY [facility] Aspirin (Asa -) 81 mg PO DAILY [facility] Benzocaine/Menthol (Cepacol Lozenge -) 1 each MM PRN PRN PRN Reason: SORE THROAT Citalopram Hydrobromide (Celexa -) 40 mg PO DAILY [facility] Famotidine (Pepcid -) 20 mg PO HS [facility] Heparin Sodium (Porcine) (Heparin -) 5,000 unit SQ TID [facility] Last Admin: 11/03/19 05:23 Dose: 5,000 unit Levofloxacin (Levaquin 500 Mg Premixed Ivpb -) 500 mg in 100 mls @ 100 mls/hr IVPB Q2D@0800 [facility]; Protocol Sodium Chloride (Normal Saline -) 250 mls @ 3,000 mls/hr IV PRN PRN PRN Reason: Hypotension during Dialysis Stop: 11/04/19 09:24 Levofloxacin (Levaquin 750 Mg Premixed Ivpb -) 750 mg in 150 mls @ 100 mls/hr IVPB ONCE ONE; Protocol Stop: 11/03/19 17:14 Lamivudine (Epivir Oral Solution -) 100 mg PO DAILY [facility] Methylprednisolone Sodium Succinate (Solu-Medrol -) 40 mg IVPUSH Q6H-IV [facility] Last Admin: 11/03/19 10:53 Dose: 40 mg Nicotine (Nicoderm Patch -) 7 mg TD DAILY [facility] Last Admin: 11/02/19 21:44 Dose: 7 mg Non-Formulary Medication (Nevirapine [Nevirapine Er]) 1 tab PO DAILY [facility] Non-Formulary Medication (Pravastatin Sodium) 1 tab PO DAILY [facility] Quinapril HCl (Accupril -) 20 mg PO DAILY [facility] Home Medications Medication Instructions Recorded Albuterol Sulfate [Proair Hfa] 8.5 gm IH PRN PRN 07/09/18 Amlodipine Besylate [Norvasc -] 10 mg PO DAILY 07/09/18 Tiotropium [place] [Spiriva 4 gm IH BID 07/09/18 Respimat] Aspirin [ASA -] 1 tab PO DAILY 08/31/19 Citalopram Hydrobromide [Celexa -] 10 mg PO DAILY 08/31/19 Ranitidine HCl 300 mg PO HS 08/31/19 Umeclidinium Brm/Vilanterol Tr 1 puff IH DAILY 08/31/19 [Anoro Ellipta 62.5-25 Mcg INH] Dolutegravir Sodium [Tivicay] 50 mg PO DAILY #30 tablet 09/07/19 Abacavir Sulfate [Abacavir] 300 mg PO BID 11/03/19 Albuterol Sulfate Inhaler - 2 puff PO Q6H PRN 11/03/19 [Ventolin HFA Inhaler -] Aspirin [ASA -] 81 mg PO DAILY 11/03/19 Fluticasone/Umeclidin/Vilanter 1 puff PO DAILY 11/03/19 [Trelegy Ellipta 100-62.5-25] Hydralazine HCl 1 tab PO TID 11/03/19 Labetalol HCl [Normodyne -] 300 mg PO BID 11/03/19 Nifedipine ER [Procardia XL -] 1 tab PO DAILY 11/03/19 Sevelamer Carbonate [Renvela -] 2 tab PO TID 11/03/19 Sucroferric Oxyhydroxide [Velphoro] 500 mg PO TID 11/03/19 Torsemide 1 tab PO DAILY 11/03/19 Microbiology 11/02/19 13:25 Blood - Peripheral Venous Blood Culture - Preliminary NO GROWTH OBTAINED AFTER 24 HOURS, INCUBATION TO CONTINUE FOR 4 DAYS. ASSESSMENT/PLAN: 69 y/o M, pmh of HIV, throat cancer s/p radiation at [place], COPD not on home O2, ESRD (on dialysis M/W/F), cardiac arreswt x4 (last arrest was last month), was sent over to the hospital by Dr. Wu for respiratory distress #Acute COPD exacerbation CXR no acute changes noted- no evidence of CAP Will cont IV Solumedrol 40mg Q6H and dounebs Levaquin 500 added for benefits shown in COPD exacerbation Pulmonary consulted appreciated Heme/onc consult appreciated Contacted [place] for oncology records- pending Pt's oncologist Dr. Rich Huizar #Macrocytosis likely 2/2 to meds vs deficiency B12/Folate #ESRD Nephrology consulted Dialysis w/ aggressive UF today #HIV Resume pts home HAART ID consulted- will f/u #Throat Ca s/p radiation Heme/onc consulted pending records #LORNA Lung lesion primary vs mets. Repeat CT Chest pending #HTN Can consider changing Quinapril to Losartan 100 mg as per Nephro Cont norvasc Will consider cardio consult #Depression/Anxiety continue Celexa. #HLD Continue Statin. DVT ppx Heparin SQ. FEN dialysis 1.2L fluid restriction sodium controlled diet Dispo: f/u with oncology, gather records, monitor BP, f/u CT chest Visit type - Emergency Visit Emergency Visit: Yes ED Registration Date: 11/02/19 Care time: The patient presented to the Emergency Department on the above date and was hospitalized for further evaluation of their emergent condition. - New Patient This patient is new to me today: Yes Date on this admission: 11/04/19 - Critical Care Critical Care patient: No - Discharge Referral Referred to [facility] Med [facility] No ATTENDING PHYSICIAN STATEMENT I saw and evaluated the patient. I reviewed the resident's note and discussed the case with the resident. I agree with the resident's findings and plan as documented. SUBJECTIVE: OBJECTIVE: ASSESSMENT AND PLAN:
[2019-11-03] MEDS: ALBUTEROL SO4 2.5/IPRATROPIUM 0.5 INH SOL 3 ML VIAL.NEB. NEB SCH ×4 (16:40→20:27)
--- NOTE | 2019-11-03 18:11 | PN ---
Progress Note (short form) - Note Progress Note: ID consult dictated imp/reccd 69 yo man sent from HIV clinic yesterday when he came for routine HIV f/u was sob, could not lay flat and reported 2 weeks history of worsening cough no fevers recent admission in august with cardiac arrest in [place] when visiting his son was also hypertensive seen on HD feeling much better received steroids and antibiotics in the ED chest ct no infiltrate, unchanged small cavitary lesion LORNA, aneurysmal dilatation ascending aorta unchanged stable HIV- continue meds as ordered copd exacerbation- steroid, nebs, rocephin esrd/hd per renal cad- follows with dr melgar laryngeal cancer s/p RT Problem List - Problems (1) COPD exacerbation Code(s): J44.1 - CHRONIC OBSTRUCTIVE PULMONARY DISEASE W (ACUTE) EXACERBATION (2) CKD (chronic kidney disease) requiring chronic dialysis Code(s): N18.6 - END STAGE RENAL DISEASE; Z99.2 - DEPENDENCE ON RENAL DIALYSIS (4) HIV (human immunodeficiency virus infection) Code(s): B20 - HUMAN IMMUNODEFICIENCY VIRUS [HIV] DISEASE
[2019-11-03] MEDS: SEVELAMER CARBONATE 800 MG TAB (FP) PO SCH (18:33)
[2019-11-03] MEDS ORDERED: PT OWN MED DRAWER 7, Y5N ONE ×3 (19:19→22:48)
[2019-11-03] MEDS: QUINAPRIL HCL 20 MG TABLET PO SCH (19:22)
[2019-11-03] MEDS: ASPIRIN 81 MG CHEWABLE TABLETS PO SCH (19:23)
[2019-11-03] MEDS: amLODIPine BESYLATE 10 MG TABLET (FP) PO SCH (19:23)
--- NOTE | 2019-11-03 19:23 | CONS ---
DATE OF CONSULTATION: 11/02/2019 DATE OF DICTATION: 11/03/2019 REQUESTED BY: Hospitalist Service This is a 69-year-old man who I saw at the [facility] for HIV care, routine. He has a past medical history of end-stage renal disease, in dialysis; history of hypertension; coronary artery disease; and COPD, followed by Dr. Collins. Social Service Director is Dr. Varela. His restaurant associate is Dr. Ruby. He presented with increased cough and shortness of breath over the last 2 weeks with creamy sputum, no blood, no fevers. He could not sleep the night before he came to see me. He was wheezing. He did a nebulizer at 8, but it did not help. He was unable to lay flat in the clinic examination room. He was noted to be hypertensive with a diastolic of over 100 and he was referred emergently to the ER for impending respiratory failure, COPD exacerbation versus volume overload. Of note, he has been intubated 4 times in the past for respiratory failure, most recently in [place] from September 16 to September 22 for cardiopulmonary arrest, thought secondary to hypoxemic respiratory failure due to volume overload. He required intubation. He was also intubated over the summer of 2018 at [facility] for respiratory failure. He required intubation then as well. Today, he was evaluated in the ER. He was treated with steroids and antibiotics. Today he is on dialysis and feeling well. He has not had any missed dialysis sessions. PAST MEDICAL HISTORY: Notable for history of hypertension, hyperlipidemia, COPD, GERD, renal insufficiency, BPH, HIV, chronic low back pain, diabetes, former alcohol user. He has diabetic retinopathy and has a history of laryngeal cancer, status post RT. He has a history of end-stage renal disease, on dialysis, and coronary artery disease. PAST SURGICAL HISTORY: Notable or colonoscopy and hernia repair. SOCIAL HISTORY: He is an active smoker. He smoked 2 cigarettes on the day that he came to see me in the morning. He lives alone. 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 ALLERGIES: No known drug allergies. MEDICATIONS: Include albuterol inhaler, Norvasc, Spiriva. He is on aspirin. He is on Celexa, Pravachol, quinapril. He takes abacavir, Tivicay, and Epivir for his HIV medications. REVIEW OF SYSTEMS: He is currently feeling much improved. PHYSICAL EXAMINATION: General: He is awake and alert man, on dialysis, in no acute distress. He is whispering, but he says his throat is improved. Vital Signs: Temperature is 99. His T-max was 100.4. His current blood pressure is 170/80, respiratory rate 18. HEENT: Head is normocephalic. Eyes are anicteric. Lungs: Scattered wheezes throughout. Heart: Regular rate and rhythm. Abdomen: Soft, nontender. Extremities: Without edema. LABORATORY: White count is 6.4, hemoglobin 11.2, platelets of 224. BUN of 44, creatinine 11.7. LFTs are normal. His influenza screen was negative. His last viral load in July was undetectable. His T-cells were 516. Blood cultures are negative at 24 hours. Sputum culture is pending. 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 It is unchanged from prior CT of December 10, 2018. There is mild bibasilar atelectatic change, mild cardiomegaly, aneurysmal dilatation of the ascending aorta, and he has some cysts in his right kidney. IN SUMMARY: This is a 69-year-old man with stable HIV. I would continue medications as ordered. COPD exacerbation: Would treat him with steroids and nebulizers and would switch him to Rocephin. End-stage renal disease: Follow up per Renal. Coronary artery disease: Follows with Dr. Varela, further history is needed. Laryngeal cancer, status post RT. MICHAEL BELL M.D. [id number]
[2019-11-03] MEDS: NICOTINE 7 MG/24 HOURS TOPICAL PATCH TD SCH (21:27)
[2019-11-03] MEDS: ABACAVIR SULFATE 300 MG TABLET PO SCH (21:28)
[2019-11-03] MEDS ORDERED: FAMOTIDINE 20 MG TABLET PO SCH (22:00)
[2019-11-03] MEDS: DOLUTEGRAVIR SODIUM 50 MG TABLET (NON-FORMULARY) PO SCH (22:39)
[2019-11-03] MEDS: CITALOPRAM HYDROBROMIDE 10 MG TABLET PO SCH (22:39)
[2019-11-03] MEDS: LABETALOL HCL 200 MG TABLET (FP) PO SCH (22:40)
[2019-11-03] MEDS: hydrALAZINE HCL 50 MG TABLET (FP) PO SCH (22:40)
[2019-11-04] MEDS: methylPREDNISolone NA SUCC 40 MG/1 ML VIAL IVPUSH SCH ×2 (02:54→10:11)
[2019-11-04] MEDS: HEPARIN NA (PORCINE) 5,000 UNITS/ML 1ML VIAL SQ SCH ×2 (06:27→14:42)
[2019-11-04] MEDS: hydrALAZINE HCL 50 MG TABLET (FP) PO SCH ×2 (06:27→14:42)
[2019-11-04] MEDS: ALBUTEROL SO4 2.5/IPRATROPIUM 0.5 INH SOL 3 ML VIAL.NEB. NEB SCH ×3 (08:00→15:55)
[2019-11-04 08:38] LABS: HEMATOCRIT 39.5 % (35.4-49); MEAN CELL VOLUME 103.1 fl (80-96); MEAN PLT VOLUME 8.6 fl (7.5-11.1); PLATELET COUNT 264 K/MM3 (134-434); RBC 3.83 M/mm3 (4.00-5.60); RDW 16.3 % (11.9-15.9); WHITE BLOOD COUNT 8.9 K/mm3 (4.0-10.0)
[2019-11-04 09:07] LABS: ALBUMIN 3.3 g/dl (3.4-5.0); BILIRUBIN,TOTAL 0.9 mg/dL (0.2-1); BLOOD UREA NITROGEN 32.1 mg/dL (7-18); CREATININE 7.2 mg/dL (0.55-1.3); MAGNESIUM 2.4 mg/dL (1.8-2.4); PHOSPHOROUS 6.2 mg/dL (2.5-4.9); POTASSIUM 3.7 mmol/L (3.5-5.1); TOT PROT 8.5 g/dl (6.4-8.2)
[2019-11-04] MEDS ORDERED: cefTRIAXone SODIUM 1 GM VIAL ONE (09:57)
[2019-11-04] MEDS ORDERED: DEXTROSE 5%-WATER - 50 ML IVPB ONE (09:58)
[2019-11-04] MEDS ORDERED: lamiVUDine 10 MG/1 ML BULK BOTTLE PO SCH (10:00)
[2019-11-04] MEDS ORDERED: TORSEMIDE 100 MG TABLET PO SCH (10:00)
[2019-11-04] MEDS ORDERED: NIFEdipine E.R 60 MG TABLET PO SCH (10:00)
[2019-11-04] MEDS ORDERED: CEFTRIAXONE 1 GM in DEXTROSE 5%-WATER - 50 ML IVPB SCH (10:00)
[2019-11-04] MEDS: NICOTINE 7 MG/24 HOURS TOPICAL PATCH TD SCH (10:05)
[2019-11-04] MEDS: CITALOPRAM HYDROBROMIDE 10 MG TABLET PO SCH (10:07)
[2019-11-04] MEDS: LABETALOL HCL 200 MG TABLET (FP) PO SCH (10:07)
[2019-11-04] MEDS: amLODIPine BESYLATE 10 MG TABLET (FP) PO SCH (10:08)
[2019-11-04] MEDS: ASPIRIN 81 MG CHEWABLE TABLETS PO SCH (10:08)
[2019-11-04] MEDS: QUINAPRIL HCL 20 MG TABLET PO SCH (10:09)
[2019-11-04] MEDS: SEVELAMER CARBONATE 800 MG TAB (FP) PO SCH ×3 (10:10→18:08)
[2019-11-04] MEDS: ABACAVIR SULFATE 300 MG TABLET PO SCH (10:12)
[2019-11-04] MEDS: DOLUTEGRAVIR SODIUM 50 MG TABLET (NON-FORMULARY) PO SCH (10:13)
[2019-11-04] MEDS ORDERED: predniSONE 20 MG TABLET (UD) PO ONE ×2 (10:15→14:45)
--- NOTE | 2019-11-04 11:53 | PN ---
Teaching Attending Note Name of Resident: Salas Horan ATTENDING PHYSICIAN STATEMENT I saw and evaluated the patient. I reviewed the resident's note and discussed the case with the resident. I agree with the resident's findings and plan as documented. SUBJECTIVE: significant improvement in SOB. No further fevers/chills. OBJECTIVE: Afebrile, Hemodynamicaly Stable. Hoarseness of voice + chronic Last Vital Signs Temp Pulse Resp BP Pulse Ox 97.8 F 74 18 179/84 H 95 11/04/19 06:00 11/04/19 06:00 11/04/19 06:00 11/04/19 06:00 11/03/19 21:00 HEENT - No pharyngeal erythema/exudate. Heart - S1, S2, RRR Lungs - good air entry, no wheeze, no stridor. Abdomen - soft, non-tender. Bowel Sounds normal. Extremities - no edema, no calf tenderness. Neuro - AAO x 3. Tone/Power normal al extremities. Laboratory Results - last 24 hr 11/04/19 11/04/19 07:43 07:43 WBC 8.9 RBC 3.83 L Hgb 13.0 Hct 39.5 D MCV 103.1 H MCH 34.0 H MCHC 33.0 RDW 16.3 H Plt Count 264 MPV 8.6 Sodium 138 Potassium 3.7 Chloride 99 Carbon Dioxide 28 Anion Gap 11 BUN 32.1 H Creatinine 7.2 H Est GFR (CKD-EPI)AfAm 8.26 Est GFR (CKD-EPI)NonAf 7.13 Random Glucose 131 H Calcium 10.0 Phosphorus 6.2 H Magnesium 2.4 Iron 62 TIBC 198 L Iron Saturation 31 Unsaturated IBC 136 L Ferritin 398.4 H Total Bilirubin 0.9 AST 14 L ALT 13 Alkaline Phosphatase 93 Total Protein 8.5 H Albumin 3.3 L TSH 0.12 L D Current Medications Generic Name Dose Route Start Last Admin Trade Name Freq PRN Reason Stop Dose Admin Abacavir Sulfate 300 mg 11/03/19 22:00 11/04/19 10:12 Ziagen - PO 300 mg BID JIMENEZ Administration Albuterol Sulfate 2 puff 11/03/19 15:54 Ventolin Hfa Inhaler - IH Q6H PRN SHORT OF BREATH/WHEEZING Albuterol/Ipratropium 1 amp 11/02/19 20:00 01/16/20 08:00 Duoneb - NEB 1 amp RQID JIMENEZ Administration Amlodipine Besylate 10 mg 11/03/19 10:00 11/04/19 10:08 Norvasc - PO 10 mg DAILY JIMENEZ Administration Aspirin 81 mg 11/03/19 10:00 11/04/19 10:08 Asa - PO 81 mg DAILY JIMENEZ Administration Benzocaine/Menthol 1 each 11/03/19 04:12 11/03/19 22:40 Cepacol Lozenge - MM 1 each PRN PRN Administration SORE THROAT Citalopram Hydrobromide 40 mg 11/03/19 10:00 11/04/19 10:07 Celexa - PO 40 mg DAILY JIMENEZ Administration Famotidine 20 mg 11/03/19 22:00 11/03/19 21:28 Pepcid - PO 20 mg HS JIMENEZ Administration Heparin Sodium (Porcine) 5,000 unit 11/02/19 22:00 11/04/19 06:27 Heparin - SQ 5,000 unit TID JIMENEZ Administration Hydralazine HCl 50 mg 11/03/19 22:00 11/04/19 06:27 Apresoline - PO 50 mg TID JIMENEZ Administration Sodium Chloride 250 mls @ 3,000 mls/hr 11/03/19 09:24 Normal Saline - IV 11/04/19 09:24 PRN PRN Hypotension during Dialysis Ceftriaxone Sodium 1 gm/ 50 mls @ 100 mls/hr 11/04/19 10:00 11/04/19 10:11 Dextrose IVPB 100 mls/hr DAILY JIMENEZ Administration Protocol Labetalol HCl 300 mg 11/03/19 22:00 11/04/19 10:07 Normodyne - PO 300 mg BID JIMENEZ Administration Lamivudine 50 mg 11/04/19 10:00 11/04/19 10:07 Epivir Oral Solution - PO 50 mg DAILY JIMENEZ Administration Nicotine 7 mg 11/02/19 19:15 11/04/19 10:05 Nicoderm Patch - TD 7 mg DAILY JIMENEZ Administration Nifedipine 60 mg 11/04/19 10:00 11/04/19 10:08 Procardia Xl - PO 60 mg DAILY JIMENEZ Administration Non-Formulary Medication 1 tab 11/03/19 10:00 Pravastatin Sodium PO DAILY JIMENEZ Quinapril HCl 20 mg 11/03/19 10:00 11/04/19 10:09 Accupril - PO 20 mg DAILY JIMENEZ Administration Sevelamer Carbonate 1,600 mg 11/03/19 17:30 11/04/19 10:10 Renvela - PO 1,600 mg TIDCM JIMENEZ Administration Torsemide 100 mg 11/04/19 10:00 11/04/19 10:05 Demadex - PO 100 mg DAILY JIMENEZ Administration Home Medications Medication Instructions Recorded Albuterol Sulfate [Proair Hfa] 8.5 gm IH PRN PRN 07/09/18 Amlodipine Besylate [Norvasc -] 10 mg PO DAILY 07/09/18 Tiotropium Rescue [Spiriva 4 gm IH BID 07/09/18 Respimat] Aspirin [ASA -] 1 tab PO DAILY 08/31/19 Citalopram Hydrobromide [Celexa -] 10 mg PO DAILY 08/31/19 Ranitidine HCl 300 mg PO HS 08/31/19 Umeclidinium Brm/Vilanterol Tr 1 puff IH DAILY 08/31/19 [Anoro Ellipta 62.5-25 Mcg INH] Dolutegravir Sodium [Tivicay] 50 mg PO DAILY #30 tablet 09/07/19 Abacavir Sulfate [Abacavir] 300 mg PO BID 11/03/19 Albuterol Sulfate Inhaler - 2 puff PO Q6H PRN 11/03/19 [Ventolin HFA Inhaler -] Aspirin [ASA -] 81 mg PO DAILY 11/03/19 Fluticasone/Umeclidin/Vilanter 1 puff PO DAILY 11/03/19 [Trelegy Ellipta 100-62.5-25] Hydralazine HCl 1 tab PO TID 11/03/19 Labetalol HCl [Normodyne -] 300 mg PO BID 11/03/19 Nifedipine ER [Procardia XL -] 1 tab PO DAILY 11/03/19 Sevelamer Carbonate [Renvela -] 2 tab PO TID 11/03/19 Sucroferric Oxyhydroxide [Velphoro] 500 mg PO TID 11/03/19 Torsemide 1 tab PO DAILY 11/03/19 ASSESSMENT AND PLAN: 69 year old male with HIV, HTN, HLD, COPD, ESRD on HD, Throat Ca s/p RTx, Hx of cardiac arrest x 4, referred to ED by ID with complaints of SOB/cough. No hemoptysis. 1. Acute Exacerbation COPD CXR - no acute cardiopulmonary findings. CT Chest - severe COPD, no consolidation. Flu negative Fever, no clear PNA - Blood/Sputum Cx negative IV Solumedrol to transition to PO for total 5 days steroid Rx. Continue DuoNebs. Levofloxacin changed to Ceftriaxone by ID - for 5 days total Abx therapy. Seen by Pulm - for out-patient follow up. Normally on Spiriva, Anoro Ellipta - to continue on discharge. 2. Macrocytosis ? sec to meds vs deficiency. B12/Folate wnl. Hem/Onc to evaluate 3. ESRD on HD - Nephrology consulted - received HD 11/03 - to continue MWF schedule. 4. HIV - on HAART. ID following. 5. Throat Ca s/p RTx at [facility]. Unclear regarding planned follow up. Progressive hoarseness of voice. Oncology to evaluate to assume care and for further recommendations/follow up. 6. LORNA Lung Lesion on prior CT imaging - Repeat CT Chest shows LORNA cavitary lesion 7mm, no change from prior. Pulm follow up. 7. HTN - continue Quinapril, CCB, Labetalol, Hydralazine and monitor BP. Will clarify Norvasc vs Nifedipine. 8. Depression/Anxiety - continue Celexa. 9. HLD - Continue Statin. 10. Exophytic L and R renal lesions - for out-patient Urology referral. 11. Ascending AA 4.5cm, stable on imaging - for out-patient Vascular Sx referral. Medically optimized for discharge after Onc eval.
--- NOTE | 2019-11-04 12:58 | PN ---
Physical Exam: SUBJECTIVE: Patient seen and examined no acute events over night oral thrush started on Nystatin OBJECTIVE: Vital Signs Period Temp Pulse Resp BP Sys/Montes Pulse Ox Last 24 Hr 97.8 F-99.0 F 74-90 18-18 148-192/80-89 95 GENERAL: Awake, alert, and fully oriented, in no acute distress. HEAD: Normal with no signs of trauma. EYES: Pupils equal, round and reactive to light, extraocular movements intact, EARS, NOSE, THROAT: Moist mucous membranes.dark hyperpigmentation spots on mouth and tongue , geographic tongue NECK: Normal range of motion, supple without lymphadenopathy, no lymph nodes enlargement noted no breast mass palpated LUNGS:expiratory wheezing HEART: Regular rate and rhythm, normal S1 and S2 , RUSB murmur, ABDOMEN: Soft, nontender, not distended, normoactive bowel sounds, LOWER EXTREMITIES: 2+ pulses, warm, well-perfused. No calf tenderness. No peripheral edema. NEUROLOGICAL: no focal deficit . muffled voice PSYCHIATRIC: Cooperative. SKIN: Warm, dry, normal turgor, Laboratory Results - last 24 hr 11/04/19 11/04/19 07:43 07:43 WBC 8.9 RBC 3.83 L Hgb 13.0 Hct 39.5 D MCV 103.1 H MCH 34.0 H MCHC 33.0 RDW 16.3 H Plt Count 264 MPV 8.6 Sodium 138 Potassium 3.7 Chloride 99 Carbon Dioxide 28 Anion Gap 11 BUN 32.1 H Creatinine 7.2 H Est GFR (CKD-EPI)AfAm 8.26 Est GFR (CKD-EPI)NonAf 7.13 Random Glucose 131 H Calcium 10.0 Phosphorus 6.2 H Magnesium 2.4 Iron 62 TIBC 198 L Iron Saturation 31 Unsaturated IBC 136 L Ferritin 398.4 H Total Bilirubin 0.9 AST 14 L ALT 13 Alkaline Phosphatase 93 Total Protein 8.5 H Albumin 3.3 L TSH 0.12 L D Active Medications Generic Name Dose Route Start Last Admin Trade Name Freq PRN Reason Stop Dose Admin Abacavir Sulfate 300 mg 11/03/19 22:00 11/04/19 10:12 Ziagen - PO 300 mg BID JIMENEZ Administration Albuterol Sulfate 2 puff 11/03/19 15:54 Ventolin Hfa Inhaler - IH Q6H PRN SHORT OF BREATH/WHEEZING Albuterol/Ipratropium 1 amp 11/02/19 20:00 11/04/19 12:00 Duoneb - NEB 1 amp RQID JIMENEZ Administration Amlodipine Besylate 10 mg 11/03/19 10:00 11/04/19 10:08 Norvasc - PO 10 mg DAILY JIMENEZ Administration Aspirin 81 mg 11/03/19 10:00 11/04/19 10:08 Asa - PO 81 mg DAILY JIMENEZ Administration Benzocaine/Menthol 1 each 11/03/19 04:12 11/03/19 22:40 Cepacol Lozenge - MM 1 each PRN PRN Administration SORE THROAT Citalopram Hydrobromide 40 mg 11/03/19 10:00 11/04/19 10:07 Celexa - PO 40 mg DAILY JIMENEZ Administration Famotidine 20 mg 11/03/19 22:00 11/03/19 21:28 Pepcid - PO 20 mg HS JIMENEZ Administration Heparin Sodium (Porcine) 5,000 unit 11/02/19 22:00 11/04/19 06:27 Heparin - SQ 5,000 unit TID JIMENEZ Administration Hydralazine HCl 50 mg 11/03/19 22:00 11/04/19 06:27 Apresoline - PO 50 mg TID JIMENEZ Administration Sodium Chloride 250 mls @ 3,000 mls/hr 11/03/19 09:24 Normal Saline - IV 11/04/19 09:24 PRN PRN Hypotension during Dialysis Ceftriaxone Sodium 1 gm/ 50 mls @ 100 mls/hr 11/04/19 10:00 11/04/19 10:11 Dextrose IVPB 100 mls/hr DAILY JIMENEZ Administration Protocol Labetalol HCl 300 mg 11/03/19 22:00 11/04/19 10:07 Normodyne - PO 300 mg BID JIMENEZ Administration Lamivudine 50 mg 11/04/19 10:00 11/04/19 10:07 Epivir Oral Solution - PO 50 mg DAILY JIMENEZ Administration Nicotine 7 mg 11/02/19 19:15 11/04/19 10:05 Nicoderm Patch - TD 7 mg DAILY JIMENEZ Administration Nifedipine 60 mg 11/04/19 10:00 11/04/19 10:08 Procardia Xl - PO 60 mg DAILY JIMENEZ Administration Non-Formulary Medication 1 tab 11/03/19 10:00 Pravastatin Sodium PO DAILY JIMENEZ Quinapril HCl 20 mg 11/03/19 10:00 11/04/19 10:09 Accupril - PO 20 mg DAILY JIMENEZ Administration Sevelamer Carbonate 1,600 mg 11/03/19 17:30 11/04/19 10:10 Renvela - PO 1,600 mg TIDCM JIMENEZ Administration Torsemide 100 mg 11/04/19 10:00 11/04/19 10:05 Demadex - PO 100 mg DAILY JIMENEZ Administration CBC, BMP 11/04/19 07:43 11/04/19 07:43 ASSESSMENT/PLAN: 69 year old male with HIV, COPD, ESRD on HD, Throat Ca s/p RTx, Hx of cardiac arrest x 4, referred to ED by ID with complaints of SOB/cough. No hemoptysis. #Throat Ca S/P radiation diagnosed 3 years ago , recieved 8 weeks of radiation 2 years ago, reports 20 pound weight loss in last 2 months , had chest cT in May with LORNA mass will reeat Ct chest today obtain records from [facility] repeat Ct scan in 3-4 months SPEP protein studies # Macrocytic anemia may be related to HAART medication , will work up for protein studies , TSH , FA , B12 , iron studies # hyper thyroidism TSH 0.12 reepat out pt and refer to endocrinology # COPD exacerbation # HIV positive on HAART # ESRD on HD Dispo: We will continue to follow the patient. Thank you for this consultative opportunity. Visit type - Emergency Visit Emergency Visit: Yes ED Registration Date: 11/02/19 Care time: The patient presented to the Emergency Department on the above date and was hospitalized for further evaluation of their emergent condition. - New Patient This patient is new to me today: No - Critical Care Critical Care patient: No - Discharge Referral [facility]erred [facility] Med P.[facility] No ATTENDING PHYSICIAN STATEMENT I saw and evaluated the patient. I reviewed the resident's note and discussed the case with the resident. I agree with the resident's findings and plan as documented. SUBJECTIVE: OBJECTIVE: ASSESSMENT AND PLAN:
--- NOTE | 2019-11-04 13:42 | PN ---
Progress Note (short form) - Note Progress Note: Renal follow up for ESRD on HD Seen and examined at the bedside awake and alert shortness is improved no cough no chest pain s/p dialysis yesterday Vital Signs Temperature 97.3 F L 11/04/19 10:00 Pulse Rate 81 11/04/19 10:00 Respiratory Rate 18 11/04/19 10:00 Blood Pressure 160/78 11/04/19 10:00 O2 Sat by Pulse Oximetry (%) 100 11/04/19 10:00 Intake & Output 11/01/19 11/02/19 11/03/19 11/04/19 23:59 23:59 23:59 23:59 Intake Total 1350 470 Output Total 3400 800 Balance -2049 - Weight 77.111 kg 76.289 kg 75.863 kg NAD RRR, no M/R CTA, no wheeze or rales soft NT/ND no LE edema left arm AVF CBC, BMP 11/04/19 07:43 11/04/19 07:43 Current Medications Abacavir Sulfate (Ziagen -) 300 mg PO BID [facility] Last Admin: 11/04/19 10:12 Dose: 300 mg Albuterol Sulfate (Ventolin Hfa Inhaler -) 2 puff IH Q6H PRN PRN Reason: SHORT OF BREATH/WHEEZING Albuterol/Ipratropium (Duoneb -) 1 amp NEB RQID [facility] Last Admin: 11/04/19 12:00 Dose: 1 amp Amlodipine Besylate (Norvasc -) 10 mg PO DAILY [facility] Last Admin: 11/04/19 10:08 Dose: 10 mg Aspirin (Asa -) 81 mg PO DAILY [facility] Last Admin: 11/04/19 10:08 Dose: 81 mg Benzocaine/Menthol (Cepacol Lozenge -) 1 each MM PRN PRN PRN Reason: SORE THROAT Last Admin: 11/03/19 22:40 Dose: 1 each Citalopram Hydrobromide (Celexa -) 40 mg PO DAILY [facility] Last Admin: 11/04/19 10:07 Dose: 40 mg Famotidine (Pepcid -) 20 mg PO HS [facility] Last Admin: 11/03/19 21:28 Dose: 20 mg Heparin Sodium (Porcine) (Heparin -) 5,000 unit SQ TID [facility] Last Admin: 11/04/19 06:27 Dose: 5,000 unit Hydralazine HCl (Apresoline -) 50 mg PO TID [facility] Last Admin: 11/04/19 06:27 Dose: 50 mg Sodium Chloride (Normal Saline -) 250 mls @ 3,000 mls/hr IV PRN PRN PRN Reason: Hypotension during Dialysis Stop: 11/04/19 09:24 Ceftriaxone Sodium 1 gm/ (Dextrose) 50 mls @ 100 mls/hr IVPB DAILY [facility]; Protocol Last Admin: 11/04/19 10:11 Dose: 100 mls/hr Labetalol HCl (Normodyne -) 300 mg PO BID [facility] Last Admin: 11/04/19 10:07 Dose: 300 mg Lamivudine (Epivir Oral Solution -) 50 mg PO DAILY [facility] Last Admin: 11/04/19 10:07 Dose: 50 mg Nicotine (Nicoderm Patch -) 7 mg TD DAILY [facility] Last Admin: 11/04/19 10:05 Dose: 7 mg Nifedipine (Procardia Xl -) 60 mg PO DAILY [facility] Last Admin: 11/04/19 10:08 Dose: 60 mg Non-Formulary Medication (Pravastatin Sodium) 1 tab PO DAILY [facility] Quinapril HCl (Accupril -) 20 mg PO DAILY [facility] Last Admin: 11/04/19 10:09 Dose: 20 mg Sevelamer Carbonate (Renvela -) 1,600 mg PO TIDCM [facility] Last Admin: 11/04/19 10:10 Dose: 1,600 mg Torsemide (Demadex -) 100 mg PO DAILY [facility] Last Admin: 11/04/19 10:05 Dose: 100 mg 69 year old gentleman with history of ESRD on HD (MWF), hypertension, COPD, Throat cancer s/p radiation therapy, current smoker, HIV, hx of cardiac arrest who presented from ID doctors office with respiratory distress and admitted for shortness of breath secondary to COPD exacerbation. 1. Shortness of breath secondary to COPD exacerbation 2. ESRD on HD 3. CKD related anemia 4. Hypertension 5. Hx of Cardiac arrest CT chest showed severe emphysema Continue steroids and nebs as per pulmonary can consider inhaled steroid BP above goal: Change medications to Nifedpine ER 90mg daily, Losartan 100mg daily, Labetalol 300mg BID and Torsemide 100mg daily. Renal diet, 1.2L fluid restriction Hgb at goal for CKD5 on dialysis, will defer DIONNA Thank you Trey Pereyra DO
[2019-11-04] MEDS: PRAVASTATIN SODIUM PO SCH (15:01)
[2019-11-04 15:13] VITALS: BMI 22.0
--- NOTE | 2019-11-04 16:52 | PN ---
Physical Exam: SUBJECTIVE: 69 y/o M, pmh of HIV, throat cancer s/p radiation at [place], COPD not on home O2, ESRD (on dialysis M/W/F), cardiac arreswt x4 (last arrest was last month), was sent over to the hospital by Dr. Wu for respiratory distress. Currently, pt has significantly improved and doing well, ready to be discharged. He is not on oxygen and is saturating well. He has difficulty speaking which is chronic from his neck radiation. Discussed with pt in length about the need to follow up with his providers in order to survey his medical conditions. Pt reports understanding and agreed to comply. Denies f/c/n/v/d/ chest pain. OBJECTIVE: Vital Signs Period Temp Pulse Resp BP Sys/Montes Pulse Ox Last 24 Hr 97.3 F-98.1 F 74-90 18-18 125-179/60-86 95-100 GENERAL: The patient is awake, alert, and fully oriented, in no acute distress. EYES: PERRL, extraocular movements intact, sclera anicteric, conjunctiva clear. No ptosis. ENT: oropharynx clear without exudates, moist mucous membranes. NECK: Trachea midline, supple. Difficulty speaking due to chronic hoarseness LUNGS: Breath sounds equal, CTAB, wheezes b/l, no crackles HEART: Regular rate and rhythm, S1, S2 without murmur, rub or gallop. ABDOMEN: Soft, nontender, nondistended, normoactive bowel sounds, no guarding EXTREMITIES: 2+ pulses, warm, well-perfused, no edema. NEUROLOGICAL: Normal speech, gait not observed. PSYCH: Normal mood, normal affect. SKIN: Warm, dry, normal turgor Laboratory Results - last 24 hr 11/04/19 11/04/19 07:43 07:43 WBC 8.9 RBC 3.83 L Hgb 13.0 Hct 39.5 D MCV 103.1 H MCH 34.0 H MCHC 33.0 RDW 16.3 H Plt Count 264 MPV 8.6 Sodium 138 Potassium 3.7 Chloride 99 Carbon Dioxide 28 Anion Gap 11 BUN 32.1 H Creatinine 7.2 H Est GFR (CKD-EPI)AfAm 8.26 Est GFR (CKD-EPI)NonAf 7.13 Random Glucose 131 H Calcium 10.0 Phosphorus 6.2 H Magnesium 2.4 Iron 62 TIBC 198 L Iron Saturation 31 Unsaturated IBC 136 L Ferritin 398.4 H Total Bilirubin 0.9 AST 14 L ALT 13 Alkaline Phosphatase 93 Total Protein 8.5 H Albumin 3.3 L TSH 0.12 L D Active Medications Home Medications Medication Instructions Recorded Albuterol Sulfate [Proair Hfa] 8.5 gm IH PRN PRN 07/09/18 Tiotropium [place] [Spiriva 4 gm IH BID 07/09/18 Respimat] Aspirin [ASA -] 1 tab PO DAILY 08/31/19 Citalopram Hydrobromide [Celexa -] 10 mg PO DAILY 08/31/19 Ranitidine HCl 300 mg PO HS 08/31/19 Dolutegravir Sodium [Tivicay] 50 mg PO DAILY #30 tablet 09/07/19 Abacavir Sulfate [Abacavir] 300 mg PO BID 11/03/19 Albuterol Sulfate Inhaler - 2 puff PO Q6H PRN 11/03/19 [Ventolin HFA Inhaler -] Fluticasone/Umeclidin/Vilanter 1 puff PO DAILY 11/03/19 [Trelegy Ellipta 100-62.5-25] Labetalol HCl [Normodyne -] 300 mg PO BID 11/03/19 Sevelamer Carbonate [Renvela -] 2 tab PO TID 11/03/19 Sucroferric Oxyhydroxide [Velphoro] 500 mg PO TID 11/03/19 Torsemide 1 tab PO DAILY 11/03/19 Albuterol 2.5/Ipratropium 0.5 1 amp NEB Q4H PRN #20 amp 11/04/19 [Duoneb -] Cefuroxime Axetil [Ceftin -] 500 mg PO BID #6 tablet 11/04/19 Losartan Potassium 100 mg PO DAILY #30 tablet 11/04/19 Nebulizer and Compressor [[place] 1 each MC Q6H 30 Days #120 each 11/04/19 Choice Nebulizer] Nifedipine ER [Procardia XL -] 90 mg PO DAILY #30 tab.er.24 11/04/19 predniSONE [Deltasone -] 40 mg PO DAILY 3 Days #6 tablet 11/04/19 Current Medications Abacavir Sulfate (Ziagen -) 300 mg PO BID [facility] Last Admin: 11/04/19 10:12 Dose: 300 mg Albuterol Sulfate (Ventolin Hfa Inhaler -) 2 puff IH Q6H PRN PRN Reason: SHORT OF BREATH/WHEEZING Albuterol/Ipratropium (Duoneb -) 1 amp NEB RQID [facility] Last Admin: 11/04/19 15:55 Dose: 1 amp Amlodipine Besylate (Norvasc -) 10 mg PO DAILY [facility] Last Admin: 11/04/19 10:08 Dose: 10 mg Aspirin (Asa -) 81 mg PO DAILY [facility] Last Admin: 11/04/19 10:08 Dose: 81 mg Benzocaine/Menthol (Cepacol Lozenge -) 1 each MM PRN PRN PRN Reason: SORE THROAT Last Admin: 11/03/19 22:40 Dose: 1 each Citalopram Hydrobromide (Celexa -) 40 mg PO DAILY [facility] Last Admin: 11/04/19 10:07 Dose: 40 mg Famotidine (Pepcid -) 20 mg PO HS [facility] Last Admin: 11/03/19 21:28 Dose: 20 mg Heparin Sodium (Porcine) (Heparin -) 5,000 unit SQ TID [facility] Last Admin: 11/04/19 14:42 Dose: 5,000 unit Hydralazine HCl (Apresoline -) 50 mg PO TID [facility] Last Admin: 11/04/19 14:42 Dose: 50 mg Sodium Chloride (Normal Saline -) 250 mls @ 3,000 mls/hr IV PRN PRN PRN Reason: Hypotension during Dialysis Stop: 11/04/19 09:24 Ceftriaxone Sodium 1 gm/ (Dextrose) 50 mls @ 100 mls/hr IVPB DAILY [facility]; Protocol Last Admin: 11/04/19 10:11 Dose: 100 mls/hr Labetalol HCl (Normodyne -) 300 mg PO BID [facility] Last Admin: 11/04/19 10:07 Dose: 300 mg Lamivudine (Epivir Oral Solution -) 50 mg PO DAILY [facility] Last Admin: 11/04/19 10:07 Dose: 50 mg Nicotine (Nicoderm Patch -) 7 mg TD DAILY [facility] Last Admin: 11/04/19 10:05 Dose: 7 mg Nifedipine (Procardia Xl -) 60 mg PO DAILY [facility] Last Admin: 11/04/19 10:08 Dose: 60 mg Quinapril HCl (Accupril -) 20 mg PO DAILY [facility] Last Admin: 11/04/19 10:09 Dose: 20 mg Sevelamer Carbonate (Renvela -) 1,600 mg PO TIDCM [facility] Last Admin: 11/04/19 14:42 Dose: 1,600 mg Torsemide (Demadex -) 100 mg PO DAILY [facility] Last Admin: 11/04/19 10:05 Dose: 100 mg Microbiology 11/02/19 13:25 Blood - Peripheral Venous Blood Culture - Preliminary NO GROWTH OBTAINED AFTER 48 HOURS, INCUBATION TO CONTINUE FOR 3 DAYS. 11/03/19 03:35 Sputum - Expectorated Gram Stain - Final 11/03/19 03:35 Sputum - Expectorated Sputum Culture - Preliminary NORMAL RESPIRATORY ERMIAS 11/02/19 13:10 Blood - Peripheral Venous Blood Culture - Preliminary NO GROWTH OBTAINED AFTER 24 HOURS, INCUBATION TO CONTINUE FOR 4 DAYS. ASSESSMENT/PLAN: 69 y/o M, pmh of HIV, throat cancer s/p radiation at [place], COPD not on home O2, ESRD (on dialysis M/W/F), cardiac arreswt x4 (last arrest was last month), was sent over to the hospital by Dr. Wu for respiratory distress #Acute COPD exacerbation CXR no acute changes noted- no evidence of CAP Switched PO prednisone pt on rocephin Contacted [facility] for oncology records- pending Pt's oncologist Dr. Rich Huizar #Macrocytosis likely 2/2 to meds vs deficiency B12/Folate #ESRD Nephrology consulted #HIV Resume pts home HAART #Throat Ca s/p radiation Heme/onc consulted- pending recom pending records #LORNA Lung lesion primary vs mets. CT Chest - severe COPD, no consolidation, Tiny cavity in LORNA 7mm w/ mild thickening and questionable, b/l posterior CV pleural effusion. Cardiomegaly mild, aneurysmal dilation of ascending aorta 4.5cm in AP dimension. Exophytic left renal pole cyst and indeterminate exophytic lesion on right mid kidney laterally as well as posteriorly 1.6 and .8 cm. #HTN Losartan 100 mg as per Nephro #Depression/Anxiety continue Celexa. #HLD Continue Statin. DVT ppx Heparin SQ. Dispo: f/u with oncology, gather records, monitor BP Visit type - Emergency Visit Emergency Visit: Yes ED Registration Date: 11/02/19 Care time: The patient presented to the Emergency Department on the above date and was hospitalized for further evaluation of their emergent condition. - New Patient This patient is new to me today: Yes Date on this admission: 11/05/19 - Critical Care Critical Care patient: No - Discharge Referral Referred to [facility] Med P.C.: No ATTENDING PHYSICIAN STATEMENT I saw and evaluated the patient. I reviewed the resident's note and discussed the case with the resident. I agree with the resident's findings and plan as documented. SUBJECTIVE: OBJECTIVE: ASSESSMENT AND PLAN:
--- NOTE | 2019-11-04 18:48 | PN ---
Teaching Attending Note Name of Resident: Bravo Quinonez ATTENDING PHYSICIAN STATEMENT I saw and evaluated the patient. I reviewed the resident's note and discussed the case with the resident. I agree with the resident's findings and plan as documented. ASSESSMENT AND PLAN: 69 year old male with HIV, COPD, ESRD on HD, Throat Ca s/p RTx 3 yrs. ago , Hx of cardiac arrest x 4, referred to ED by ID with complaints of SOB/cough. CT chest - COPD, LORNA tiny cavity 7mm? inflammatory, renal cysts, bibasal atelectasis Was treated with steroids/rocephin Patient given contact nos. to follow up
--- NOTE | 2019-11-04 19:50 | DS ---
Physical Exam: SUBJECTIVE: Patient seen and examined 69 y/o M, pmh of HIV, throat cancer s/p radiation at [place], COPD not on home O2, ESRD (on dialysis M/W/F), cardiac arreswt x4 (last arrest was last month), was sent over to the hospital by Dr. Wu for respiratory distress. Currently, pt has significantly improved and doing well, ready to be discharged. He is not on oxygen and is saturating well. He has difficulty speaking which is chronic from his neck radiation. Discussed with pt in length about the need to follow up with his providers in order to survey his medical conditions. Pt reports understanding and agreed to comply. Denies f/c/n/v/d/ chest pain. OBJECTIVE: Vital Signs Period Temp Pulse Resp BP Sys/Montes Pulse Ox Last 24 Hr 97.3 F-98.1 F 74-93 18-20 125-179/60-84 95-100 PHYSICAL EXAM GENERAL: The patient is awake, alert, and fully oriented, in no acute distress. EYES: PERRL, extraocular movements intact, sclera anicteric, conjunctiva clear. No ptosis. ENT: oropharynx clear without exudates, moist mucous membranes. NECK: Trachea midline, supple. Difficulty speaking due to chronic hoarseness LUNGS: Breath sounds equal, CTAB, wheezes b/l, no crackles HEART: Regular rate and rhythm, S1, S2 without murmur, rub or gallop. ABDOMEN: Soft, nontender, nondistended, normoactive bowel sounds, no guarding EXTREMITIES: 2+ pulses, warm, well-perfused, no edema. NEUROLOGICAL: Normal speech, gait not observed. PSYCH: Normal mood, normal affect. SKIN: Warm, dry, normal turgor LABS Laboratory Results - last 24 hr 11/04/19 11/04/19 07:43 07:43 WBC 8.9 RBC 3.83 L Hgb 13.0 Hct 39.5 D MCV 103.1 H MCH 34.0 H MCHC 33.0 RDW 16.3 H Plt Count 264 MPV 8.6 Sodium 138 Potassium 3.7 Chloride 99 Carbon Dioxide 28 Anion Gap 11 BUN 32.1 H Creatinine 7.2 H Est GFR (CKD-EPI)AfAm 8.26 Est GFR (CKD-EPI)NonAf 7.13 Random Glucose 131 H Calcium 10.0 Phosphorus 6.2 H Magnesium 2.4 Iron 62 TIBC 198 L Iron Saturation 31 Unsaturated IBC 136 L Ferritin 398.4 H Total Bilirubin 0.9 AST 14 L ALT 13 Alkaline Phosphatase 93 Total Protein 8.5 H Albumin 3.3 L TSH 0.12 L D Current Medications Abacavir Sulfate (Ziagen -) 300 mg PO BID [facility] Last Admin: 11/04/19 10:12 Dose: 300 mg Albuterol Sulfate (Ventolin Hfa Inhaler -) 2 puff IH Q6H PRN PRN Reason: SHORT OF BREATH/WHEEZING Albuterol/Ipratropium (Duoneb -) 1 amp NEB RQID [facility] Last Admin: 11/04/19 15:55 Dose: 1 amp Amlodipine Besylate (Norvasc -) 10 mg PO DAILY [facility] Last Admin: 11/04/19 10:08 Dose: 10 mg Aspirin (Asa -) 81 mg PO DAILY [facility] Last Admin: 11/04/19 10:08 Dose: 81 mg Benzocaine/Menthol (Cepacol Lozenge -) 1 each MM PRN PRN PRN Reason: SORE THROAT Last Admin: 11/03/19 22:40 Dose: 1 each Citalopram Hydrobromide (Celexa -) 40 mg PO DAILY [facility] Last Admin: 11/04/19 10:07 Dose: 40 mg Famotidine (Pepcid -) 20 mg PO HS [facility] Last Admin: 11/03/19 21:28 Dose: 20 mg Heparin Sodium (Porcine) (Heparin -) 5,000 unit SQ TID [facility] Last Admin: 11/04/19 14:42 Dose: 5,000 unit Hydralazine HCl (Apresoline -) 50 mg PO TID [facility] Last Admin: 11/04/19 14:42 Dose: 50 mg Sodium Chloride (Normal Saline -) 250 mls @ 3,000 mls/hr IV PRN PRN PRN Reason: Hypotension during Dialysis Stop: 11/04/19 09:24 Ceftriaxone Sodium 1 gm/ (Dextrose) 50 mls @ 100 mls/hr IVPB DAILY [facility]; Protocol Last Admin: 11/04/19 10:11 Dose: 100 mls/hr Labetalol HCl (Normodyne -) 300 mg PO BID [facility] Last Admin: 11/04/19 10:07 Dose: 300 mg Lamivudine (Epivir Oral Solution -) 50 mg PO DAILY [facility] Last Admin: 11/04/19 10:07 Dose: 50 mg Nicotine (Nicoderm Patch -) 7 mg TD DAILY [facility] Last Admin: 11/04/19 10:05 Dose: 7 mg Nifedipine (Procardia Xl -) 60 mg PO DAILY [facility] Last Admin: 11/04/19 10:08 Dose: 60 mg Quinapril HCl (Accupril -) 20 mg PO DAILY [facility] Last Admin: 11/04/19 10:09 Dose: 20 mg Sevelamer Carbonate (Renvela -) 1,600 mg PO TIDCM [facility] Last Admin: 11/04/19 18:08 Dose: 1,600 mg Torsemide (Demadex -) 100 mg PO DAILY [facility] Last Admin: 11/04/19 10:05 Dose: 100 mg Microbiology 11/02/19 13:10 Blood - Peripheral Venous Blood Culture - Preliminary NO GROWTH OBTAINED AFTER 48 HOURS, INCUBATION TO CONTINUE FOR 3 DAYS. 11/02/19 13:25 Blood - Peripheral Venous Blood Culture - Preliminary NO GROWTH OBTAINED AFTER 48 HOURS, INCUBATION TO CONTINUE FOR 3 DAYS. 11/03/19 03:35 Sputum - Expectorated Gram Stain - Final 11/03/19 03:35 Sputum - Expectorated Sputum Culture - Preliminary NORMAL RESPIRATORY ERMIAS [facility]OSPITAL COURSE: Date of Admission:11/02/19 69 y/o M, pmh of HIV, throat cancer s/p radiation at [place], COPD not on home O2, ESRD (on dialysis M/W/F), cardiac arrest x4 (last arrest was last month ), was sent over to the hospital by Dr. Wu for respiratory distress 2/2 Acute COPD exacerbation. Pt was treated with Solumedrol 125 which was switched to Solumedrol 40mg Q6H and Vanc/Zosyn in the ED which was switched to Levaquin for CAP coverage w/ dounebs. Pt was also found to have a BNP: 21,493 likely 2/2 ESRD. ID saw pt and switched him to ceftriaxone. Pt's symptoms improved significantly, especially after being dialyzed here and he was discharged on prednisone 40mg daily for 3 more days, starting tomorrow, which includes 11/05, , 11/07, Ceftin 500 mg twice a day for 3 more days, Dounebs nebulizers and machine as needed, Nifedipine XL 90 mg once daily, Losartan 100 mg once daily. His hydralazine and norvsc was stopped as per james Bonds. We attempted to contact Pt's oncologist Dr. Rich Huizar at [facility] for oncology records but did not receive any response. Pt was given referral to f/u with heme/onc Dr. Carranza as pt wanted to transition his care to [facility]. Heme/onc here evaluated pt and discussed with him the need to follow up outpt. Flu negative CXR: shows prominent hilar markings, elevated left maria eugenia-diaphragm Per ID note Pt. had undetectable viral levels and CD4 greater than 500 in July 2019. Stress Test in 05/27/19: normal EKG, mild inferior ischemia, EF:51% EKG shows 82 bpm, no ST elevation/depression, QTc 469, LVH. CT Chest - severe COPD, no consolidation, Tiny cavity in LORNA 7mm w/ mild thickening and questionable, b/l posterior CV pleural effusion. Cardiomegaly mild, aneurysmal dilation of ascending aorta 4.5cm in AP dimension. Exophytic left renal pole cyst and indeterminate exophytic lesion on right mid kidney laterally as well as posteriorly 1.6 and .8 cm. Date of Discharge: 11/04/19 Minutes to complete discharge: 40 Discharge Summary Problems reviewed: Yes Reason For Visit: ACUTE RESPIRATORY FAILURE Condition: Improved - Instructions Diet, Activity, Other Instructions: You were admitted to the hospital for shortness of breath While in the hospital, we evaluated you with lab work, blood work, imaging including x rays of your chest and CAT scan of your chest. We found that your symptoms were caused by an exacerbation of your COPD. We treated you with medications and your symptoms improved. To complete the treatment of your COPD exacerbation, please take the following medications: Please take Prednisone 40mg daily for 3 more days, starting tomorrow, which includes 11/05, 11/06, 11/07 Please take Ceftin 500 mg twice a day for 3 more days Please take Dounebs nebulizers as needed to improve your breathing. To better control your blood pressure, we have made some adjustment to your medications, Please STOP taking Hydralazine and Amlodipine Please START taking Nifedipine XL 90 mg once daily Please START taking Losartan 100 mg once daily Please continue taking Labetolol 300 mg BID Please take all your medications as prescribed We also found some abnormalities on your CAT scan, which will need to be followed up by the Vascular doctor and the Urologist Please follow up with the Vascular surgeon within 1 week to address and monitor the abnormality seen on the CAT scan. Please follow up with the Urologist within 1 to 2 weeks to address and monitor the abnormality seen on CAT scan. Please follow up with your oncologist or the one we have provided Dr. Carranza within 1 week to follow up your low blood levels and you will need a repeat CAT scan in 3-4 months. Please follow up with the pulmonolgist Dr. Ruby within 1 week Please follow up with the water pump installer within 1 week to address and monitor the low thyroid levels seen in your blood work. Please follow up with your Hydrographical Technical Officer for your Dialysis, Dr. Pereyra within 1 week. Please follow up with the infectious disease specialist within 1 to 2 weeks. Please also follow up with your primary care physician, or the primary care physician we have given you, in order to follow up any changes to your medications. Return to the emergency room, if you experience worsening of your symptoms, chest pain, abdominal pain, shortness of breath or any other worsening of your symptoms. Referrals: erlin ruggiero [Other] Rj Mcdonnell MD [Staff Physician] - 1 Week (3-4 days) Paulino Lutz MD [Staff Physician] - 1 Week Mukul Ruby MD [Staff Physician] - 1 Week Erlin Ruggiero NP [Primary Care Provider] - 1 Week Ольга Wu MD [Staff Physician] - 1 Week Arnold Lan DO [Staff Physician] - 1 Week Josefa Varela MD [Non Staff, Medical] - Krystian Carranza MD [Staff Physician] - 1 Week Trey Pereyra MD [Staff Physician] - 1 Week Maria Guadalupe Dean MD [Staff Physician] - 1 Week Disposition: VNS/HOME HEALTH CARE - Home Medications Comprehensive Discharge Medication List: Ambulatory Orders Albuterol Sulfate [Proair Hfa] 8.5 gm IH PRN PRN 07/09/18 Tiotropium [place] [Spiriva Respimat] 4 gm IH BID 07/09/18 Aspirin [ASA -] 1 tab PO DAILY 08/31/19 Citalopram Hydrobromide [Celexa -] 10 mg PO DAILY 08/31/19 Ranitidine HCl 300 mg PO HS 08/31/19 Dolutegravir Sodium [Tivicay] 50 mg PO DAILY #30 tablet 09/07/19 Abacavir Sulfate [Abacavir] 300 mg PO BID 11/03/19 Albuterol Sulfate Inhaler - [Ventolin HFA Inhaler -] 2 puff PO Q6H PRN 11/03/19 Fluticasone/Umeclidin/Vilanter [Trelegy Ellipta 100-62.5-25] 1 puff PO DAILY Labetalol HCl [Normodyne -] 300 mg PO BID 11/03/19 Sevelamer Carbonate [Renvela -] 2 tab PO TID 11/03/19 Sucroferric Oxyhydroxide [Velphoro] 500 mg PO TID 11/03/19 Torsemide 1 tab PO DAILY 11/03/19 Albuterol 2.5/Ipratropium 0.5 [Duoneb -] 1 amp NEB Q4H PRN #20 amp 11/04/19 Cefuroxime Axetil [Ceftin -] 500 mg PO BID #6 tablet 11/04/19 Losartan Potassium 100 mg PO DAILY #30 tablet 11/04/19 Nebulizer and Compressor [[place] Choice Nebulizer] 1 each MC Q6H 30 Days #120 each 11/04/19 Nifedipine ER [Procardia XL -] 90 mg PO DAILY #30 tab.er.24 11/04/19 predniSONE [Deltasone -] 40 mg PO DAILY 3 Days #6 tablet 11/04/19 This patient is new to me today: Yes Date on this admission: 11/04/19 Emergency Visit: Yes ED Registration Date: 11/02/19 Care time: The patient presented to the Emergency Department on the above date and was hospitalized for further evaluation of their emergent condition. Critical Care patient: No - Discharge Referral Referred to [facility] Med P.C.: No ATTENDING PHYSICIAN STATEMENT I saw and evaluated the patient. I reviewed the resident's note and discussed the case with the resident. I agree with the resident's findings and plan as documented. SUBJECTIVE: OBJECTIVE: ASSESSMENT AND PLAN:
[2019-11-04 20:01] VITALS: BP 155/83; PULSE 92; TEMP 97.5
[2019-11-05] MEDS ORDERED: NYSTATIN 500,000 UNITS/5 ML SUSPENSION PO SCH
== END 2019-11-04 20:21 | disposition home or self-care (01) | DRG 190 ==
LOC: SUPCPDRO 12:14 → JER 12:14 → JERBED 17:18 → J5S 11-03 02:39
PROC: 5A1D70Z Performance of Urinary Filtration, Intermittent, Less than 6 Hours Per Day (ICD-10-PCS; principal; 2019-11-03)
DX: J44.1 Chronic obstructive pulmonary disease with (acute) exacerbation (principal); N18.6 End stage renal disease; J98.11 Atelectasis; B37.0 Candidal stomatitis; J90 Pleural effusion, not elsewhere classified; I12.0 Hypertensive chronic kidney disease with stage 5 chronic kidney disease or end stage renal disease; Z21 Asymptomatic human immunodeficiency virus [HIV] infection status; F17.210 Nicotine dependence, cigarettes, uncomplicated; E11.22 Type 2 diabetes mellitus with diabetic chronic kidney disease; D53.9 Nutritional anemia, unspecified; F32.9 Major depressive disorder, single episode, unspecified; E78.5 Hyperlipidemia, unspecified; R91.1 Solitary pulmonary nodule; D63.8 Anemia in other chronic diseases classified elsewhere; D75.89 Other specified diseases of blood and blood-forming organs; R63.4 Abnormal weight loss; Z68.22 Body mass index [BMI] 22.0-22.9, adult; N40.0 Benign prostatic hyperplasia without lower urinary tract symptoms; E11.319 Type 2 diabetes mellitus with unspecified diabetic retinopathy without macular edema; M54.5 Low back pain; K21.9 Gastro-esophageal reflux disease without esophagitis; K59.09 Other constipation; F41.8 Other specified anxiety disorders; I71.4 Abdominal aortic aneurysm, without rupture; N28.9 Disorder of kidney and ureter, unspecified; N28.1 Cyst of kidney, acquired; Z85.21 Personal history of malignant neoplasm of larynx; Z99.2 Dependence on renal dialysis
CPT/HCPCS: 36415; 71045-TC-FY; 71250-TC; 80053; 81003; 82550; 82553; 82607; 82668; 82728; 82746; 82784; 82803; 83540; 83550; 83605; 83735; 83880; 84100; 84155; 84165; 84443; 84484; 85025; 85027; 85610; 85730; 86334; 86803; 87040; 87070; 87205; 87340; 87804; 93005; 93010; 94640; 97116-GP; 97161-GP; 99285-25; G0463-25; J1644

== ENCOUNTER 2019-11-25 11:09 | Inpatient (IN) | payer OTHER ==
--- NOTE | 2019-11-25 11:38 | PDOC ---
History of Present Illness - General Chief Complaint: Shortness of Breath Stated Complaint: COPD Time Seen by Provider: 11/25/19 11:38 History Source: Patient Exam Limitations: No Limitations - History of Present Illness Initial Comments: 11/25/19 11:58 69yM w PMHx HIV (med compliant), Throat Ca (s/p radiation), COPD (not on home O2), ESRD (MWF), cardiac arrest x 4 presenting w 4d midsternal chest pressure worse w exertion, non productive cough, SOB, sudden onset BLE weakness and lightheaded walking down stairs this morning. Denies LOC, fall, head trauma. Didn't take aspirin today. Denies SOB, nausea/vomiting, urinary/bowel mvmt changes, extremity edema Past History - Past Medical History Allergies/Adverse Reactions: Allergies Allergy/AdvReac Type Severity Reaction Status Date / Time No Known Drug Allergies Allergy Verified 11/02/19 12:27 Home Medications: Ambulatory Orders Albuterol Sulfate [Proair Hfa] 8.5 gm IH PRN PRN 07/09/18 Tiotropium [place] [Spiriva Respimat] 4 gm IH BID 07/09/18 Aspirin [ASA -] 1 tab PO DAILY 08/31/19 Citalopram Hydrobromide [Celexa -] 10 mg PO DAILY 08/31/19 Ranitidine HCl 300 mg PO HS 08/31/19 Albuterol Sulfate Inhaler - [Ventolin HFA Inhaler -] 2 puff PO Q6H PRN 11/03/19 Fluticasone/Umeclidin/Vilanter [Trelegy Ellipta 100-62.5-25] 1 puff PO DAILY 11/03/19 Labetalol HCl [Normodyne -] 300 mg PO BID 11/03/19 Sevelamer Carbonate [Renvela -] 2 tab PO TID 11/03/19 Sucroferric Oxyhydroxide [Velphoro] 500 mg PO TID 11/03/19 Torsemide 1 tab PO DAILY 11/03/19 Albuterol 2.5/Ipratropium 0.5 [Duoneb -] 1 amp NEB Q4H PRN #20 amp 11/04/19 Cefuroxime Axetil [Ceftin -] 500 mg PO BID #6 tablet 11/04/19 Losartan Potassium 100 mg PO DAILY #30 tablet 11/04/19 Nebulizer and Compressor [[place] Nebulizer] 1 each MC Q6H 30 Days #120 each 11/04/19 Nifedipine ER [Procardia XL -] 90 mg PO DAILY #30 tab.er.24 11/04/19 predniSONE [Deltasone -] 40 mg PO DAILY 3 Days #6 tablet 11/04/19 Abacavir Sulfate [Abacavir] 300 mg PO BID #60 tablet 11/16/19 Abacavir Sulfate [Abacavir] 300 mg PO BID #60 tablet 11/16/19 Dolutegravir Sodium [Tivicay] 50 mg PO DAILY #30 tablet 11/16/19 Dolutegravir Sodium [Tivicay] 50 mg PO DAILY #30 tablet 11/16/19 Lamivudine [Epivir Hbv] 100 mg PO DAILY #30 tablet 11/16/19 Lamivudine [Lamivudine Hbv] 100 mg PO DAILY #30 tablet 11/16/19 Anemia: Yes Asthma: Yes Cancer: Yes (THROAT,LARYNGEAL CANCER) Cardiac Disorders: Yes CVA: No COPD: Yes CHF: Yes (ACUTE ON CHRONIC DIASTOLIC) DVT: No Dementia: No Diabetes: No Dialysis: Yes (ESRD ON HD) GI Disorders: Yes (H/O MELENA) Disorders: Yes (h/o prostatitis) HTN: Yes Hypercholesterolemia: Yes Liver Disease: Yes (ESRD) Psychiatric Problems: Yes (DEPRESSION.) Seizures: No Thyroid Disease: Yes (s/p radiation, dx 2016) Other medical history: THROAT CA, CARDIAC ARREST X4 - Surgical History Abdominal Surgery: Yes (bilaterl inguinal hernia repair and undescend testis left, hearnia surgery) Appendectomy: No Cardiac Surgery: No Cholecystectomy: No Lung Surgery: No Neurologic Surgery: No Orthopedic Surgery: No - Reproductive History Testicular Surgery: No - Immunization History Immunization Up to Date: Yes - Psycho Social/Smoking Cessation Hx Smoking History: Never smoked Have you smoked in the past 12 months: No Number of Cigarettes Smoked Daily: 5 Cigars Per Day: 0 Information on smoking cessation initiated: No 'Breaking Loose' booklet given: 11/03/19 Hx Alcohol Use: No Drug/Substance Use Hx: No Substance Use Type: None Hx Substance Use Treatment: Yes Review of Systems - Review of Systems Constitutional: No: Chills, Fever HEENTM: No: Eye Pain, Nose Pain, Throat Pain Respiratory: Yes: Cough, Shortness of Breath Cardiac (ROS): Yes: Chest Pain. No: Palpitations ABD/GI: No: Abdominal Distended, Constipated, Diarrhea, Nausea, Vomiting : No: Burning, Dysuria Musculoskeletal: No: Back Pain, Joint Pain Integumentary: No: Bruising, Flushing Neurological: No: Headache, Seizure Psychiatric: No: Anxiety, Depression Endocrine: No: Excessive Sweating, Intolerance to Cold, Intolerance to Heat Hematologic/Lymphatic: No: Blood Clots, Easy Bleeding *Physical Exam - Vital Signs Last Vital Signs Temp Pulse Resp BP Pulse Ox 97.6 F 88 22 H 97/53 L 94 L 11/25/19 11:16 11/25/19 11:16 11/25/19 11:16 11/25/19 11:16 11/25/19 11:16 - Physical Exam General Appearance: Yes: Nourished, Appropriately Dressed, Mild Distress HEENT: positive: EOMI, VASYL, Muffled/Hoarse voice (chronic), Hearing Grossly Normal. negative: Rhinorrhea Respiratory/Chest: positive: Accessory Muscle Use, Labored Respiration, Decreased Breath Sounds, Other (coarse breath sounds). negative: Chest Tender, Crackles, Rales, Rhonchi, Stridor, Wheezing Cardiovascular: positive: Regular Rhythm, Regular Rate, S1, S2. negative: Edema, Murmur Gastrointestinal/Abdominal: positive: Normal Bowel Sounds, Flat, Soft. negative: Tender, Organomegaly Extremity: positive: Delayed Capillary Refill Integumentary: positive: Normal Color, Dry, Cold Neurologic: positive: archeology professor II-XII NML intact, Fully Oriented, Alert, Responsive. negative: Sensory Deficit, Confused, Disoriented ED Treatment Course - LABORATORY CBC & Chemistry Diagram: 11/25/19 12:15 11/25/19 12:15 Medical Decision Making - Medical Decision Making 11/25/19 12:23 CXR - no acute pathology EKG NSR w sinus arrythmia, LVH, HR 81, QTc 473, no ST changes --- 69yM w PMHx HIV, Throat Ca (s/p radiation), COPD (not on home O2), ESRD (MWF), cardiac arrest x 4 presenting w 4d midsternal exertional chest pressure, non productive cough, SOB, and 1d generalized weakness and lightheaded COPD exacerbation vs unstable angina. Low concern for PNA (no consolidation CXR) Given aspirin, vanc, zosyn, solumedrol, duoneb x2. No fluids given d/t ESRD Admitted tele Dr Beltran for COPD exacerbation and unstable angina - pending chest CT. Wants to rule out immunosuprressed lung infections PCP Bahman Discharge - Discharge Information Problems reviewed: Yes Clinical Impression/Diagnosis: COPD exacerbation Condition: Improved - Follow up/Referral Referrals: Sheridan Ruggiero, LOGGING EQUIPMENT OPERATOR [Primary Care Provider] - - Patient Discharge Instructions - Post Discharge Activity
[2019-11-25] MEDS ORDERED: ASPIRIN 81 MG CHEWABLE TABLETS PO ONE (11:57)
[2019-11-25] MEDS ORDERED: ALBUTEROL SO4 2.5/IPRATROPIUM 0.5 INH SOL 3 ML VIAL.NEB. NEB ONE ×2 (12:21→12:27)
[2019-11-25] MEDS ORDERED: ASPIRIN 81 MG CHEWABLE TABLETS ONE (12:27)
[2019-11-25 12:32] LABS: BASO % 0.3 % (0-2.0); EOS % 0.3 % (0-4.5); HEMATOCRIT 42.2 % (35.4-49); HEMOGLOBIN 13.9 GM/dL (11.7-16.9); LYMPH % 12.6 % (8-40); MCH 33.4 pg (25.7-33.7); MCHC 32.9 g/dl (32.0-35.9); MEAN CELL VOLUME 101.5 fl (80-96); MEAN PLT VOLUME 8.2 fl (7.5-11.1); MONO % 7.3 % (3.8-10.2); NEUT % 79.5 % (42.8-82.8); PLATELET COUNT 246 K/MM3 (134-434); RBC 4.16 M/mm3 (4.00-5.60); RDW 17.1 % (11.9-15.9); WHITE BLOOD COUNT 7.9 K/mm3 (4.0-10.0)
[2019-11-25 13:02] LABS: BLOOD UREA NITROGEN 32.4 mg/dL (7-18); CALCIUM 10.1 mg/dL (8.5-10.1); POTASSIUM 4.3 mmol/L (3.5-5.1); TOT PROT 8.1 g/dl (6.4-8.2)
[2019-11-25 13:04] LABS: CREATININE 9.3 mg/dL (0.55-1.3)
--- NOTE | 2019-11-25 13:09 | PDOC ---
Attending Attestation - Resident Resident Name: StephaniDago - ED Attending Attestation I have performed the following: I have examined & evaluated the patient, The case was reviewed & discussed with the resident, I agree w/resident's findings & plan - HPI HPI: 11/25/19 13:03 69-year-old male with multiple medical problems including HIV, end-stage renal disease on Friday/Friday/Friday dialysis, CAD with history of cardiac arrest presents now with increasing chest congestion, cough, and generalized weakness since yesterday. - Physicial Exam PE: 11/25/19 13:04 Alert lying in stretcher, moderate distress, speaking 4 words at a time, very weak appearing Neck supple, oropharynx as noted Heart is regular slight tachycardia, lungs with coarse breath sounds bilateral bases, no wheezing Abdomen benign No edema - Critical Care Time Total Critical Care Time: 30 Critical Care Statement: The care of this patient involved high complexity decision making to prevent further life threatening deterioration of the patient's condition and/or to evaluate & treat vital organ system(s) failure or risk of failure. - Medical Decision Making 11/25/19 13:07 69-year-old male with HIV, CAD, end-stage renal disease presents with acute hypoxic respiratory distress since yesterday, weak appearing here with sirs, likely secondary to sepsis, rule out pneumonia. Rule out ACS/CHF. Sepsis protocol initiated IV fluids Chest x-ray, EKG Antibiotics Admit Heart Score/ECG Review #1 ECG reviewed & interpreted by me at: 12:03 General ECG Interpretation: Sinus Rhythm, Normal Rate (81), Normal Intervals (qtc 473, LVH), No acute ischemic changes (biphasic T wave V5V6) Compared to previous ECG there are: No significant change
[2019-11-25] MEDS ORDERED: VANCOMYCIN 1 GM in D5W (PRE-DOCKED) 1,000 MG/250 ML IVPB ONE (13:18)
[2019-11-25] MEDS ORDERED: PIPERACILLIN/TAZOB 4.5 GM 4.5 GM in DEXTROSE 5%-WATER 100 ML IVPB ONE (13:18)
[2019-11-25] MEDS ORDERED: methylPREDNISolone NA SUCC 125 MG/2 ML VIAL IVPB ONE (13:18)
[2019-11-25] MEDS ORDERED: methylPREDNISolone NA SUCC 125 MG/2 ML VIAL ONE (13:53)
[2019-11-25] MEDS ORDERED: VANCOMYCIN 1 GRAM (PRE-DOCKED) 1,000 MG/250 ML BAG IVPB ONE (13:53)
[2019-11-25] MEDS ORDERED: PIPERACILLIN/TAZOB 4.5 GM 4.5 GM/100 ML BAG IVPB ONE (13:53)
[2019-11-25 14:20] LABS: VENOUS PC02 43.4 mmHg (38-52); VENOUS PH 7.39 (7.31-7.41)
[2019-11-25 14:23] LABS: VENOUS PO2 < 49 mmHg (28-48)
--- NOTE | 2019-11-25 14:25 | EKG ---
Test Reason : Blood Pressure : / mmHG Vent. Rate : 081 BPM Atrial Rate : 081 BPM P-R Int : 136 ms QRS Dur : 096 ms QT Int : 408 ms P-R-T Axes : -13 029 077 degrees QTc Int : 473 ms NORMAL SINUS RHYTHM WITH SINUS ARRHYTHMIA VOLTAGE CRITERIA FOR LEFT VENTRICULAR HYPERTROPHY NONSPECIFIC T WAVE ABNORMALITY PROLONGED QT ABNORMAL ECG WHEN COMPARED WITH ECG OF 02-NOV-2019 12:41, NO SIGNIFICANT CHANGE WAS FOUND Confirmed by GUANAKO MCCAULEY MD ([id number]) on 11/25/2019 2:24:37 PM Referred By: Confirmed By:GUANAKO MCCAULEY MD
[2019-11-25] MEDS ORDERED: SODIUM CHLORIDE 1,000 ML IV SCH (14:45)
[2019-11-25] MEDS ORDERED: ALBUTEROL SO4 0.083% IH SOL 2.5 MG/3 ML VIAL.NEB. NEB PRN (14:47)
[2019-11-25] MEDS ORDERED: PIPERACILLIN/TAZOB 2.25 GM 2.25 GM in DEXTROSE 5%-WATER - 50 ML IVPB SCH ×2 (15:00→21:00)
--- NOTE | 2019-11-25 15:17 | HP ---
CHIEF COMPLAINT: PCP: Sheridan Ruggiero, (switched to Dr. Mcdonnell but has not made appointment yet) HISTORY OF PRESENT ILLNESS: 69 y/o M, pmh of HIV, throat cancer s/p radiation at [place], COPD not on home O2, ESRD (on dialysis M/W/F), cardiac arrest x4 (last arrest was last month ), presenting because of sudden onset of shortness of breath and cough with sputum production, and weakness. Patient says his sob gets worse with walking. He also says he has chest discomfort (not pain), and feels like he is congested. Patient was recently discharged on 11/04 for COPD exacerbation. Was discharged on steroids and antibiotics. Patient says he has been compliant with his medications since being discharged. He denies fevers, chills, nausea, vomiting, diarrhea, urinary symptoms, diarrhea , chest pain. 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, was previously a heavy drinker Drugs: Denies Allergies No Known Drug Allergies Allergy (Verified 11/02/19 12:27) HOME MEDICATIONS: Home Medications Medication Instructions Recorded Albuterol Sulfate [Proair Hfa] 8.5 gm IH PRN PRN 07/09/18 Tiotropium [place] [Spiriva 4 gm IH BID 07/09/18 Respimat] Aspirin [ASA -] 1 tab PO DAILY 08/31/19 Citalopram Hydrobromide [Celexa -] 10 mg PO DAILY 08/31/19 Ranitidine HCl 300 mg PO HS 08/31/19 Albuterol Sulfate Inhaler - 2 puff PO Q6H PRN 11/03/19 [Ventolin HFA Inhaler -] Fluticasone/Umeclidin/Vilanter 1 puff PO DAILY 11/03/19 [Trelegy Ellipta 100-62.5-25] Labetalol HCl [Normodyne -] 300 mg PO BID 11/03/19 Sevelamer Carbonate [Renvela -] 2 tab PO TID 01/15/20 Sucroferric Oxyhydroxide [Velphoro] 500 mg PO TID 11/03/19 Torsemide 1 tab PO DAILY 11/03/19 Albuterol 2.5/Ipratropium 0.5 1 amp NEB Q4H PRN #20 amp 11/04/19 [Duoneb -] Cefuroxime Axetil [Ceftin -] 500 mg PO BID #6 tablet 11/04/19 Losartan Potassium 100 mg PO DAILY #30 tablet 11/04/19 Nebulizer and Compressor [[place] 1 each MC Q6H 30 Days #120 each 11/04/19 Choice Nebulizer] Nifedipine ER [Procardia XL -] 90 mg PO DAILY #30 tab.er.24 11/04/19 predniSONE [Deltasone -] 40 mg PO DAILY 3 Days #6 tablet 11/04/19 Abacavir Sulfate [Abacavir] 300 mg PO BID #60 tablet 11/16/19 Abacavir Sulfate [Abacavir] 300 mg PO BID #60 tablet 11/16/19 Dolutegravir Sodium [Tivicay] 50 mg PO DAILY #30 tablet 11/16/19 Dolutegravir Sodium [Tivicay] 50 mg PO DAILY #30 tablet 11/16/19 Lamivudine [Epivir Hbv] 100 mg PO DAILY #30 tablet 11/16/19 Lamivudine [Lamivudine Hbv] 100 mg PO DAILY #30 tablet 11/16/19 REVIEW OF SYSTEMS per HPI PHYSICAL EXAMINATION Vital Signs - 24 hr 11/25/19 11/25/19 11/25/19 11:16 12:00 13:50 Temperature 97.6 F 98 F Pulse Rate 88 Pulse Rate [ 88 Apical] Respiratory 22 H 25 H Rate Blood Pressure 97/53 L Blood Pressure 163/80 [Right Arm] O2 Sat by Pulse 94 L 97 100 Oximetry (%) GENERAL: a/o x 3, in nad HEAD: Normal with no signs of trauma. EYES: extraocular movements intact, sclera anicteric, conjunctiva clear. EARS, NOSE, THROAT: Dry mucous membranes. mild oral thrush LUNGS: decreased breath sounds, no wheezing. HEART: RRR, No MGR ABDOMEN: Soft, nontender, not distended, normoactive bowel sounds LOWER EXTREMITIES: 2+ dorsal pedal pulses, warm, well-perfused. No calf tenderness. No peripheral edema. NEUROLOGICAL: Cranial nerves II-XII grossly intact Laboratory Results - last 24 hr 11/25/19 11/25/19 11/25/19 12:15 12:15 13:40 WBC 7.9 RBC 4.16 Hgb 13.9 Hct 42.2 MCV 101.5 H MCH 33.4 MCHC 32.9 RDW 17.1 H Plt Count 246 MPV 8.2 Absolute Neuts (auto) 6.3 Neutrophils % 79.5 Lymphocytes % 12.6 D Monocytes % 7.3 D Eosinophils % 0.3 D Basophils % 0.3 Nucleated RBC % 0 VBG pH 7.39 POC VBG pCO2 43.4 POC VBG pO2 < 49 H VBG HCO3 25.8 VBG O2 Sat ([place]) 52.6 L VBG Base Excess 1.1 Sodium 138 Potassium 4.3 Chloride 99 Carbon Dioxide 27 Anion Gap 12 BUN 32.4 H Creatinine 9.3 H* Est GFR (CKD-EPI)AfAm 6.06 Est GFR (CKD-EPI)NonAf 5.23 Random Glucose 124 H Calcium 10.1 Total Bilirubin 1.0 AST 12 L ALT 15 Alkaline Phosphatase 105 Creatine Kinase 98 Troponin I 0.03 Total Protein 8.1 Albumin 3.0 L ASSESSMENT/PLAN: 69 y/o M, pmh of HIV, throat cancer s/p radiation at [place], COPD not on home O2, ESRD (on dialysis M/W/F), cardiac arreswt x4 (last arrest was last month), presented to the ED because of SOB. #SOB -likely 2/2 Acute COPD exacerbation -CXR no acute changes noted- no evidence of CAP -low suspicion for pna. -on IV abx: zosyn for possible HAP -ID consult -IV medrol 60 q6h -VBG unremarkable. -Standing nebs, prn albuterol -Pulm consult -influenza, respiratory viral panel #Oral thrush -magic mouth wash -nystatin swish and swallow #Macrocytosis likely 2/2 to meds vs deficiency B12/Folate #ESRD Nephrology consulted: Dr. Pereyra #HIV -last CD4 in 600s 11/16/2019 -Resume pts home HAART #Throat Ca s/p radiation -w/ underlying dysphagia, mucositic changes in throat -give magic mouth wash, cover for oral candidiasis w/ oral fluconazole 200mg -Heme Onc evaluation for mucositis #LORNA Lung lesion primary vs mets. CT Chest 11/03- severe COPD, no consolidation, Tiny cavity in LORNA 7mm w/ mild thickening and questionable, b/l posterior CV pleural effusion. Cardiomegaly mild, aneurysmal dilation of ascending aorta 4.5cm in AP dimension. Exophytic left renal pole cyst and indeterminate exophytic lesion on right mid kidney laterally as well as posteriorly 1.6 and .8 cm. #HTN cont home meds #Depression/Anxiety continue Celexa. #HLD Continue Statin. #DVT ppx Heparin SQ. Visit type - Emergency Visit Emergency Visit: Yes ED Registration Date: 11/25/19 Care time: The patient presented to the Emergency Department on the above date and was hospitalized for further evaluation of their emergent condition. - New Patient This patient is new to me today: Yes Date on this admission: 11/25/19 - Critical Care Critical Care patient: No ATTENDING PHYSICIAN STATEMENT I saw and evaluated the patient. I reviewed the resident's note and discussed the case with the resident. I agree with the resident's findings and plan as documented. SUBJECTIVE: OBJECTIVE: ASSESSMENT AND PLAN:
--- NOTE | 2019-11-25 16:05 | PN ---
Teaching Attending Note Name of Resident: Michael Vogel ATTENDING PHYSICIAN STATEMENT I saw and evaluated the patient. I reviewed the resident's note and discussed the case with the resident. I agree with the resident's findings and plan as documented. 69 M h/o HIV (last, throat cancer s/p radiation at [place], COPD not on home O2, ESRD (on dialysis M/W/F), cardiac arrest x4 (last arrest was last month ), presenting because of sudden onset of shortness of breath and cough with sputum production, and weakness. Last seen ID Dr. Wu 1 week ago was in his USOH but was still smoking at that time. Patient was recently admitted for ARF 2/2 COPDE, in which he was DC w/ outpatient followup. Patient endorses full compliance w/ HAART meds, last CD4 >600 in 11/16/2019, w/ undetectable viral load. Now endorses with "chest fullness" as if he has a URI, and SOB, denies overt CP/LOC/syncope/hemoptysis/. Endorses acute on chronic throat burning and dysphagia as well making it harder for him to eat. PE GA cachectic, tired appearing, unkempt, hoarse voice HEENT NC/AT, EOMI, trace oral thrush on tongue edges, mucositic changes in posterior oropharynx Chest coarse b/l BS, faint end expiratory wheezes, no crackles CVS s1, S2+, RRR Abd Soft, NT, ND, BS+ Ext LUE fistula with good thrill, no LE edema, dry extremities, moves all 4 ext. Vital Signs - 24 hr 11/25/19 11/25/19 11/25/19 11:16 12:00 13:50 Temperature 97.6 F 98 F Pulse Rate 88 Pulse Rate [ 88 Apical] Respiratory 22 H 25 H Rate Blood Pressure 97/53 L Blood Pressure 163/80 [Right Arm] O2 Sat by Pulse 94 L 97 100 Oximetry (%) Laboratory Results - last 24 hr 11/25/19 11/25/19 11/25/19 12:15 12:15 13:40 WBC 7.9 RBC 4.16 Hgb 13.9 Hct 42.2 MCV 101.5 H MCH 33.4 MCHC 32.9 RDW 17.1 H Plt Count 246 MPV 8.2 Absolute Neuts (auto) 6.3 Neutrophils % 79.5 Lymphocytes % 12.6 D Monocytes % 7.3 D Eosinophils % 0.3 D Basophils % 0.3 Nucleated RBC % 0 VBG pH 7.39 POC VBG pCO2 43.4 POC VBG pO2 < 49 H VBG HCO3 25.8 VBG O2 Sat ([place]ley) 52.6 L VBG Base Excess 1.1 Sodium 138 Potassium 4.3 Chloride 99 Carbon Dioxide 27 Anion Gap 12 BUN 32.4 H Creatinine 9.3 H* Est GFR (CKD-EPI)AfAm 6.06 Est GFR (CKD-EPI)NonAf 5.23 Random Glucose 124 H Lactic Acid Calcium 10.1 Total Bilirubin 1.0 AST 12 L ALT 15 Alkaline Phosphatase 105 Creatine Kinase 98 Troponin I 0.03 Total Protein 8.1 Albumin 3.0 L 11/25/19 13:40 WBC RBC Hgb Hct MCV MCH MCHC RDW Plt Count MPV Absolute Neuts (auto) Neutrophils % Lymphocytes % Monocytes % Eosinophils % Basophils % Nucleated RBC % VBG pH POC VBG pCO2 POC VBG pO2 VBG HCO3 VBG O2 Sat ([place]ley) VBG Base Excess Sodium Potassium Chloride Carbon Dioxide Anion Gap BUN Creatinine Est GFR (CKD-EPI)AfAm Est GFR (CKD-EPI)NonAf Random Glucose Lactic Acid 2.0 Calcium Total Bilirubin AST ALT Alkaline Phosphatase Creatine Kinase Troponin I Total Protein Albumin Home Medications Medication Instructions Recorded Albuterol Sulfate [Proair Hfa] 8.5 gm IH PRN PRN 07/09/18 Tiotropium [place] [Spiriva 4 gm IH BID 07/09/18 Respimat] Aspirin [ASA -] 1 tab PO DAILY 08/31/19 Citalopram Hydrobromide [Celexa -] 10 mg PO DAILY 08/31/19 Ranitidine HCl 300 mg PO HS 08/31/19 Albuterol Sulfate Inhaler - 2 puff PO Q6H PRN 11/03/19 [Ventolin HFA Inhaler -] Fluticasone/Umeclidin/Vilanter 1 puff PO DAILY 11/03/19 [Trelegy Ellipta 100-62.5-25] Labetalol HCl [Normodyne -] 300 mg PO BID 11/03/19 Sevelamer Carbonate [Renvela -] 2 tab PO TID 11/03/19 Sucroferric Oxyhydroxide [Velphoro] 500 mg PO TID 11/03/19 Torsemide 1 tab PO DAILY 11/03/19 Albuterol 2.5/Ipratropium 0.5 1 amp NEB Q4H PRN #20 amp 11/04/19 [Duoneb -] Cefuroxime Axetil [Ceftin -] 500 mg PO BID #6 tablet 11/04/19 Losartan Potassium 100 mg PO DAILY #30 tablet 11/04/19 Nebulizer and Compressor [[place] 1 each MC Q6H 30 Days #120 each 11/04/19 Choice Nebulizer] Nifedipine ER [Procardia XL -] 90 mg PO DAILY #30 tab.er.24 11/04/19 predniSONE [Deltasone -] 40 mg PO DAILY 3 Days #6 tablet 11/04/19 Abacavir Sulfate [Abacavir] 300 mg PO BID #60 tablet 11/16/19 Abacavir Sulfate [Abacavir] 300 mg PO BID #60 tablet 11/16/19 Dolutegravir Sodium [Tivicay] 50 mg PO DAILY #30 tablet 11/16/19 Dolutegravir Sodium [Tivicay] 50 mg PO DAILY #30 tablet 11/16/19 Lamivudine [Epivir Hbv] 100 mg PO DAILY #30 tablet 11/16/19 Lamivudine [Lamivudine Hbv] 100 mg PO DAILY #30 tablet 11/16/19 Current Medications Generic Name Dose Route Start Last Admin Trade Name Freq PRN Reason Stop Dose Admin Abacavir Sulfate 300 mg 11/25/19 22:00 Ziagen - PO BID JIMENEZ Albuterol Sulfate 1 amp 11/25/19 14:47 Ventolin 0.083% Nebulizer Soln - NEB Q6H PRN SHORT OF BREATH/WHEEZING Albuterol/Ipratropium 1 amp 11/25/19 15:00 Duoneb - NEB Q3H JIMENEZ Aspirin 81 mg 11/26/19 10:00 Asa - PO DAILY JIMENEZ Citalopram Hydrobromide 10 mg 11/26/19 10:00 Celexa - PO DAILY JIMENEZ Famotidine 20 mg 11/25/19 22:00 Pepcid - PO HS JIMENEZ Heparin Sodium (Porcine) 5,000 unit 11/25/19 22:00 Heparin - SQ TID JIMENEZ Sodium Chloride 1,000 mls @ 75 mls/hr 11/25/19 14:45 Normal Saline - IV ASDIR JIMENEZ Piperacillin Sod/Tazobactam 50 mls @ 100 mls/hr 11/25/19 15:00 Sod 2.25 gm/ Dextrose IVPB Q6H-IV JIMENEZ Protocol Piperacillin Sod/Tazobactam 50 mls @ 100 mls/hr 11/25/19 21:00 Sod 2.25 gm/ Dextrose IVPB 11/26/19 15:29 Q6H-IV JIMENEZ Protocol Labetalol HCl 300 mg 11/25/19 22:00 Normodyne - PO BID JIMENEZ Lamivudine 50 mg 11/26/19 10:00 Epivir Oral Solution - PO DAILY JIMENEZ Lidocaine/Aluminum/Magnesium/Simeth 5 ml 11/25/19 18:00 Magic Mouthwash *Sjr Formula* - MM Q6HPO JIMENEZ Losartan Potassium 100 mg 11/26/19 10:00 Cozaar - PO DAILY [facility] Methylprednisolone Sodium Succinate 60 mg 11/25/19 15:00 Solu-Medrol - IVPUSH Q6H-IV JIMENEZ Nifedipine 90 mg 11/26/19 10:00 Procardia Xl - PO DAILY JIMENEZ Nystatin 500,000 units 11/25/19 18:00 Nystatin Oral Suspension - PO Q6HPO JIMENEZ Sevelamer Carbonate 1,600 mg 11/25/19 17:30 Renvela - PO TIDCM [facility] Tiotropium [place] 2 puff 11/26/19 10:00 Spiriva Respimat IH DAILY JIMENEZ A/P: 69 AA Male, h/o HIV, throat cancer s/p radiation at [facility], COPD not on home O2, active smoker 1/2 PPD, ESRD (on dialysis M/W/F), remote h/o cardiac arrest x4 (last arrest was last month per chart), admitted for acute on chronic SOB likely 2/2 COPDE, PNA to be ruled out. Acute COPDE increased chest fullness with increased sputum production, no fevers, await cultures IV steroids, nebs around the clock, RSV/Flu/legionella/strep cultures, BiPAP PRN for SOB Pulmonary evaluation ESRD CRE high, will evaluate for possible further HD due to nausea/fatigue sx Renal consult: Dr Frazier HIV last CD4 in 600s 11/16/2019 Resume pts home HAART Throat Ca s/p radiation w/ underlying dysphagia, mucositic changes in throat give magic mouth wash, cover for oral candidiasis w/ oral fluconazole 200mg Heme Onc evaluation for mucositis DVT ppx: Heparin SC FEN: IVF/daily lytes, soft/liquid diet as tolerated Telemetry admission
[2019-11-25] MEDS ORDERED: FLUCONAZOLE 100 MG TABLET (UD) PO ONE (16:36)
[2019-11-25] MEDS: ALBUTEROL SO4 2.5/IPRATROPIUM 0.5 INH SOL 3 ML VIAL.NEB. NEB SCH ×2 (17:54→20:57)
[2019-11-25] MEDS: methylPREDNISolone NA SUCC 40 MG/1 ML VIAL IVPUSH SCH ×2 (17:54→20:44)
--- NOTE | 2019-11-25 18:05 | PN ---
Progress Note (short form) - Note Progress Note: ID consult dictated imp/reccd 69 yo man with stable HIV, esrd/hd, history of laryngeal cancer s/p RT, copd admitted with generalized weakness no clear source no fevers, normal wbc influenza screen negative, he is not coughing agree witn vanco one dose and zosyn while awaiting cultures ?copd exacerbation d/w hospitalist please continue HIV meds Problem List - Problems (1) Weakness Code(s): R53.1 - WEAKNESS (2) COPD exacerbation Code(s): J44.1 - CHRONIC OBSTRUCTIVE PULMONARY DISEASE W (ACUTE) EXACERBATION (3) HIV (human immunodeficiency virus infection) Code(s): B20 - HUMAN IMMUNODEFICIENCY VIRUS [HIV] DISEASE (4) CKD (chronic kidney disease) requiring chronic dialysis Code(s): N18.6 - END STAGE RENAL DISEASE; Z99.2 - DEPENDENCE ON RENAL DIALYSIS
--- NOTE | 2019-11-25 18:34 | CONS ---
DATE OF CONSULTATION: DATE OF DICTATION: 11/25/2019 INFECTIOUS DISEASE CONSULTATION HISTORY OF PRESENT ILLNESS: This is a 69-year-old man with a history of laryngeal cancer who has end-stage renal disease on dialysis who I follow for HIV. His HIV has been very, very stable. He has had difficulty over the last year with difficulty breathing. He has had multiple intubations, and most recently I had seen him in October in the clinic, he was not able to lie flat, and he was hypertensive, and he ended up getting transferred to the emergency room where he was admitted for 48 hours, and the feeling was that he at that time that he probably had an acute COPD exacerbation. He was discharged then on Ceftin steroid taper. I saw him follow up in clinic for his HIV, and he was doing well. He now returns to the ER today with profound weakness. He reports for the last 2-3 days he has been extremely weak. He did manage to go to dialysis yesterday. This morning when he woke up he thought he would fall, and he drove himself to the ER. He notes he has not had any vomiting. He continues to spit up. He has no appetite. He has not been able to eat for the last several days, and he reports he did attend dialysis yesterday. He has had no fevers or chills. PAST MEDICAL HISTORY: Extensive. Notable for hypertension, hyperlipidemia, COPD, GERD, end-stage renal disease on dialysis, BPH, HIV, chronic low back pain, diabetes with diabetic retinopathy. He has a history of laryngeal cancer status post RT, and a history of coronary artery disease. He has had multiple intubations which number up to 4. The most recent was in [place] in August. It was thought to be secondary to hypoxic respiratory failure due to volume overload. SURGICAL HISTORY: Notable for fistula in his arm. He has history of colonoscopy and hernia repair. SOCIAL HISTORY: He is an active smoker. He lives alone. 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 ALLERGIES: No known drug allergies. REVIEW OF SYSTEMS: He reports that he feels his hoarseness is getting worse, and his plan had been to see his ENT doctor for followup. He also notes he has difficulty eating and swallowing. PHYSICAL EXAMINATION: General: He is awake and alert. His voice is a hoarse whisper. Vital Signs: Temperature is 97.6, pulse of 85, blood pressure 144/66. He is saturating 96% on room air. HEENT: Normocephalic. Eyes are anicteric. He has no thrush in his mouth. Lungs: Clear to auscultation. Heart: Regular rate and rhythm. Abdomen: Soft. Extremities: His fistula is without erythema. Extremities are without edema. LABORATORY: White count is 7.9, hemoglobin 13.9, platelets are 246. His BUN and creatinine are 32 and 9.3. T-cells are 641 with undetectable viral load; this was obtained November 16. He is influenza and RSV negative. Chest x-ray shows no obvious infiltrate. IMPRESSION: In summary, this is a 69-year-old man admitted with weakness. I doubt infection, as he has no fever, elevated white count, but at this time we do not have a good explanation of his weakness, so I think we will cover him for infection while awaiting blood cultures. His creatinine is quite high for being post-dialysis. Needs to be seen by Renal as well, and he ideally should have ENT evaluation. Regarding his HIV, it is quite stable, and would continue him on his medications. Case was discussed with the hospitalist. MICHAEL BELL M.D. [id number]
--- NOTE | 2019-11-25 19:17 | CONSULT ---
Consult - text type - Consultation Consultation Note: 69yM w PMHx HIV (med compliant), Throat Ca (s/p radiation @[facility] 3 yrs. ago) , COPD (not on home O2), ESRD (MWF), cardiac arrest x 4 presenting w 4days of midsternal chest pressure worse w exertion, non productive cough, SOB, sudden onset BLE weakness and lightheaded walking down stairs this morning. Allergies/Adverse Reactions: Allergies Allergy/AdvReac Type Severity Reaction Status Date / Time No Known Drug Allergies Allergy Verified 11/02/19 12:27 Home Medications: Ambulatory Orders Albuterol Sulfate [Proair Hfa] 8.5 gm IH PRN PRN 07/09/18 Tiotropium Wilson [Spiriva Respimat] 4 gm IH BID 07/09/18 Aspirin [ASA -] 1 tab PO DAILY 08/31/19 Citalopram Hydrobromide [Celexa -] 10 mg PO DAILY 08/31/19 Ranitidine HCl 300 mg PO HS 08/31/19 Albuterol Sulfate Inhaler - [Ventolin HFA Inhaler -] 2 puff PO Q6H PRN 11/03/19 Fluticasone/Umeclidin/Vilanter [Trelegy Ellipta 100-62.5-25] 1 puff PO DAILY Labetalol HCl [Normodyne -] 300 mg PO BID 11/03/19 Sevelamer Carbonate [Renvela -] 2 tab PO TID 11/03/19 Sucroferric Oxyhydroxide [Velphoro] 500 mg PO TID 11/03/19 Torsemide 1 tab PO DAILY 11/03/19 Albuterol 2.5/Ipratropium 0.5 [Duoneb -] 1 amp NEB Q4H PRN #20 amp 11/04/19 Cefuroxime Axetil [Ceftin -] 500 mg PO BID #6 tablet 11/04/19 Losartan Potassium 100 mg PO DAILY #30 tablet 11/04/19 Nebulizer and Compressor [Burson Choice Nebulizer] 1 each MC Q6H 30 Days #120 each 11/04/19 Nifedipine ER [Procardia XL -] 90 mg PO DAILY #30 tab.er.24 11/04/19 predniSONE [Deltasone -] 40 mg PO DAILY 3 Days #6 tablet 11/04/19 Abacavir Sulfate [Abacavir] 300 mg PO BID #60 tablet 11/16/19 Abacavir Sulfate [Abacavir] 300 mg PO BID #60 tablet 11/16/19 Dolutegravir Sodium [Tivicay] 50 mg PO DAILY #30 tablet 11/16/19 Dolutegravir Sodium [Tivicay] 50 mg PO DAILY #30 tablet 11/16/19 Lamivudine [Epivir Hbv] 100 mg PO DAILY #30 tablet 11/16/19 Lamivudine [Lamivudine Hbv] 100 mg PO DAILY #30 tablet 11/16/19 PMH Anemia: Yes Asthma: Yes Cancer: Yes (THROAT,LARYNGEAL CANCER) Cardiac Disorders: Yes COPD: Yes CHF: Yes (ACUTE ON CHRONIC DIASTOLIC) Dialysis: Yes (ESRD ON HD) GI Disorders: Yes (H/O MELENA) Disorders: Yes (h/o prostatitis) HTN: Yes Hypercholesterolemia: Yes Liver Disease: Yes (ESRD) Psychiatric Problems: Yes (DEPRESSION.) Thyroid Disease: Yes (s/p radiation, dx 2016) Other medical history: THROAT CA, CARDIAC ARREST X4 - Surgical History Abdominal Surgery: Yes (bilaterl inguinal hernia repair and undescend testis left, hearnia surgery) - Psycho Social/Smoking Cessation Hx Smoking History: Never smoked - Vital Signs Last Vital Signs Temp Pulse Resp BP Pulse Ox 97.6 F 88 22 H 97/53 L 94 L 11/25/19 11:16 11/25/19 11:16 11/25/19 11:16 11/25/19 11:16 11/25/19 11:16 Cor: RSR, No murmurs, No gallops Lungs: Clear to P&A Abd: Soft, Normal bowel sounds, No organomegaly Ext:No significant edema LAbs/Meds reviewed A/P 69 year old male with HIV, COPD, ESRD on HD, Throat Ca s/p RTx 3 yrs. ago , Hx of cardiac arrest x 4, referred to ED by ID with complaints of SOB/cough/chest tightness/generalized weakness, odynophagia, 20lb wt. loss in 3 months on steroids/zosyn for COPD exacerbation will request GI consult given wt. loss/odynophagia ---on nystatis/mucositis cocktao; ? CT a/p CT chest 11/03/19- COPD, LORNA tiny cavity 7mm? inflammatory, renal cysts, bibasal atelectasis
[2019-11-25] MEDS: NYSTATIN 500,000 UNITS/5 ML SUSPENSION PO SCH (20:42)
[2019-11-25] MEDS: ACETAMINOPHEN 325 MG TABLET (FP) PO PRN (20:43)
[2019-11-25] MEDS: SEVELAMER CARBONATE 800 MG TAB (FP) PO SCH (20:45)
[2019-11-25] MEDS: ACETYLCYSTEINE 20% 200MG/ML 4 ML VIAL *FOR ORAL / INH USE ONLY NEB SCH (20:56)
[2019-11-25] MEDS: MAG HYDROX/ALH/SMC/DPHA/LIDO 240 ML MOUTHWASH MM SCH (22:35)
[2019-11-25] MEDS: HEPARIN NA (PORCINE) 5,000 UNITS/ML 1ML VIAL SQ SCH (22:39)
[2019-11-25] MEDS: ABACAVIR SULFATE 300 MG TABLET PO SCH (22:43)
[2019-11-25] MEDS: FAMOTIDINE 20 MG TABLET PO SCH (22:45)
[2019-11-25] MEDS: LABETALOL HCL 100 MG TABLET (FP) PO SCH (22:47)
[2019-11-26] MEDS: NYSTATIN 500,000 UNITS/5 ML SUSPENSION PO SCH ×4 (00:07→18:07)
[2019-11-26] MEDS: MAG HYDROX/ALH/SMC/DPHA/LIDO 240 ML MOUTHWASH MM SCH ×4 (00:07→18:07)
[2019-11-26] MEDS: ALBUTEROL SO4 2.5/IPRATROPIUM 0.5 INH SOL 3 ML VIAL.NEB. NEB SCH ×7 (00:30→20:11)
[2019-11-26] MEDS ORDERED: MELATONIN 5 MG TABLETS PO ONE (02:16)
[2019-11-26] MEDS ORDERED: BENZOCAINE/MENTH/CETYLPYRD CL 1 EACH LOZENGE MM PRN (02:16)
[2019-11-26] MEDS: methylPREDNISolone NA SUCC 40 MG/1 ML VIAL IVPUSH SCH ×4 (02:41→22:43)
[2019-11-26] MEDS: HEPARIN NA (PORCINE) 5,000 UNITS/ML 1ML VIAL SQ SCH ×3 (06:29→22:43)
[2019-11-26] MEDS: ACETAMINOPHEN 325 MG TABLET (FP) PO PRN (06:34)
[2019-11-26 07:39] LABS: BASO % 0.1 % (0-2.0); HEMATOCRIT 40.2 % (35.4-49); LYMPH % 6.1 % (8-40); MCH 32.8 pg (25.7-33.7); MCHC 32.3 g/dl (32.0-35.9); MEAN CELL VOLUME 101.7 fl (80-96); MEAN PLT VOLUME 8.9 fl (7.5-11.1); NEUT % 91.8 % (42.8-82.8); PLATELET COUNT 229 K/MM3 (134-434); RBC 3.96 M/mm3 (4.00-5.60); RDW 17.2 % (11.9-15.9); WHITE BLOOD COUNT 8.3 K/mm3 (4.0-10.0)
[2019-11-26 08:11] LABS: ALBUMIN 2.7 g/dl (3.4-5.0); BLOOD UREA NITROGEN 56.9 mg/dL (7-18); CALCIUM 9.4 mg/dL (8.5-10.1); MAGNESIUM 2.6 mg/dL (1.8-2.4); PHOSPHOROUS 6.6 mg/dL (2.5-4.9); POTASSIUM 4.2 mmol/L (3.5-5.1); TOT PROT 7.4 g/dl (6.4-8.2)
[2019-11-26 08:21] LABS: CREATININE 11.2 mg/dL (0.55-1.3)
[2019-11-26] MEDS: ACETYLCYSTEINE 20% 200MG/ML 4 ML VIAL *FOR ORAL / INH USE ONLY NEB SCH (08:33)
[2019-11-26] MEDS: SEVELAMER CARBONATE 800 MG TAB (FP) PO SCH ×3 (08:34→18:07)
[2019-11-26] MEDS ORDERED: SODIUM CHLORIDE 250 ML IV PRN ×3 (08:37→14:00)
[2019-11-26] MEDS ORDERED: HEPARIN NA (PORCINE) 5,000 UNITS/ML 1ML VIAL IVPUSH ONE (08:38)
[2019-11-26] MEDS ORDERED: PT OWN MED DRAWER 7, Y5N ONE (09:59)
[2019-11-26] MEDS ORDERED: TIOTROPIUM BROMIDE 2.5 MCG (SPIRIVA) RESPIMAT INHALER IH SCH (10:00)
[2019-11-26] MEDS: NIFEdipine E.R. 90 MG TABLET PO SCH (10:01)
[2019-11-26] MEDS: ASPIRIN 81 MG CHEWABLE TABLETS PO SCH (10:01)
[2019-11-26] MEDS: FLUCONAZOLE 100 MG TABLET (UD) PO SCH (10:01)
[2019-11-26] MEDS: LABETALOL HCL 100 MG TABLET (FP) PO SCH ×2 (10:01→22:42)
[2019-11-26 10:02] LABS: ANISOCYTOSIS 1+; MACROCYTOSIS 1+; PLATELET ESTIMATE NORMAL
[2019-11-26] MEDS: lamiVUDine 10 MG/1 ML BULK BOTTLE PO SCH (10:02)
[2019-11-26] MEDS: ABACAVIR SULFATE 300 MG TABLET PO SCH ×2 (10:03→22:42)
[2019-11-26] MEDS: LOSARTAN POTASSIUM 50 MG TABLET (FP) PO SCH (10:03)
--- NOTE | 2019-11-26 11:51 | PN ---
Physical Exam: SUBJECTIVE: Patient seen and examined. says he is feeling a lot better today. Less short of breath, but still experiencing dysphagia/odynophagia. OBJECTIVE: Vital Signs Period Temp Pulse Resp BP Sys/Montes Pulse Ox Last 24 Hr 97.5 F-98 F 76-88 18-25 122-163/66-87 96-100 GENERAL: a/o x 3, in nad HEAD: Normal with no signs of trauma. EYES: extraocular movements intact, sclera anicteric, conjunctiva clear. EARS, NOSE, THROAT: Dry mucous membranes. LUNGS: decreased breath sounds, no wheezing. HEART: RRR, No MGR ABDOMEN: Soft, nontender, not distended, normoactive bowel sounds LOWER EXTREMITIES: 2+ dorsal pedal pulses, warm, well-perfused. No calf tenderness. No peripheral edema. NEUROLOGICAL: Cranial nerves II-XII grossly intact Laboratory Results - last 24 hr 11/25/19 11/25/19 11/25/19 12:15 12:15 13:40 WBC 7.9 RBC 4.16 Hgb 13.9 Hct 42.2 MCV 101.5 H MCH 33.4 MCHC 32.9 RDW 17.1 H Plt Count 246 MPV 8.2 Absolute Neuts (auto) 6.3 Neutrophils % 79.5 Neutrophils % (Manual) Band Neutrophils % Lymphocytes % 12.6 D Lymphocytes % (Manual) Monocytes % 7.3 D Monocytes % (Manual) Eosinophils % 0.3 D Eosinophils % (Manual) Basophils % 0.3 Basophils % (Manual) Myelocytes % (Man) Promyelocytes % (Man) Blast Cells % (Manual) Nucleated RBC % 0 Metamyelocytes Hypochromia Platelet Estimate Polychromasia Poikilocytosis Anisocytosis Microcytosis Macrocytosis VBG pH 7.39 POC VBG pCO2 43.4 POC VBG pO2 < 49 H VBG HCO3 25.8 VBG O2 Sat (Marley) 52.6 L VBG Base Excess 1.1 Sodium 138 Potassium 4.3 Chloride 99 Carbon Dioxide 27 Anion Gap 12 BUN 32.4 H Creatinine 9.3 H* Est GFR (CKD-EPI)AfAm 6.06 Est GFR (CKD-EPI)NonAf 5.23 Random Glucose 124 H Lactic Acid Calcium 10.1 Phosphorus Magnesium Total Bilirubin 1.0 AST 12 L ALT 15 Alkaline Phosphatase 105 Creatine Kinase 98 Troponin I 0.03 Total Protein 8.1 Albumin 3.0 L Influenza A (Rapid) Influenza B (Rapid) RSV Rapid 11/25/19 11/25/19 11/25/19 13:40 16:30 16:30 WBC RBC Hgb Hct MCV MCH MCHC RDW Plt Count MPV Absolute Neuts (auto) Neutrophils % Neutrophils % (Manual) Band Neutrophils % Lymphocytes % Lymphocytes % (Manual) Monocytes % Monocytes % (Manual) Eosinophils % Eosinophils % (Manual) Basophils % Basophils % (Manual) Myelocytes % (Man) Promyelocytes % (Man) Blast Cells % (Manual) Nucleated RBC % Metamyelocytes Hypochromia Platelet Estimate Polychromasia Poikilocytosis Anisocytosis Microcytosis Macrocytosis VBG pH POC VBG pCO2 POC VBG pO2 VBG HCO3 VBG O2 Sat (Marley) VBG Base Excess Sodium Potassium Chloride Carbon Dioxide Anion Gap BUN Creatinine Est GFR (CKD-EPI)AfAm Est GFR (CKD-EPI)NonAf Random Glucose Lactic Acid 2.0 Calcium Phosphorus Magnesium Total Bilirubin AST ALT Alkaline Phosphatase Creatine Kinase Troponin I Total Protein Albumin Influenza A (Rapid) Negative Influenza B (Rapid) Negative RSV Rapid Negative 11/25/19 11/25/19 11/26/19 20:00 21:50 06:28 WBC 8.3 RBC 3.96 L Hgb 13.0 Hct 40.2 MCV 101.7 H MCH 32.8 MCHC 32.3 RDW 17.2 H Plt Count 229 MPV 8.9 Absolute Neuts (auto) 7.6 Neutrophils % 91.8 H Neutrophils % (Manual) 98.1 H Band Neutrophils % 0.0 Lymphocytes % 6.1 L D Lymphocytes % (Manual) 1.9 L D Monocytes % 2.0 L Monocytes % (Manual) 0 L D Eosinophils % 0.0 D Eosinophils % (Manual) 0.0 Basophils % 0.1 Basophils % (Manual) 0.0 Myelocytes % (Man) 0 Promyelocytes % (Man) 0 Blast Cells % (Manual) 0 Nucleated RBC % 0 Metamyelocytes 0 Hypochromia 0 Platelet Estimate Normal Polychromasia 0 Poikilocytosis 0 Anisocytosis 1+ Microcytosis 0 Macrocytosis 1+ VBG pH POC VBG pCO2 POC VBG pO2 VBG HCO3 VBG O2 Sat (Marley) VBG Base Excess Sodium Potassium Chloride Carbon Dioxide Anion Gap BUN Creatinine Est GFR (CKD-EPI)AfAm Est GFR (CKD-EPI)NonAf Random Glucose Lactic Acid 1.7 Calcium Phosphorus Magnesium Total Bilirubin AST ALT Alkaline Phosphatase Creatine Kinase Troponin I 0.02 Total Protein Albumin Influenza A (Rapid) Influenza B (Rapid) RSV Rapid 11/26/19 06:28 WBC RBC Hgb Hct MCV MCH MCHC RDW Plt Count MPV Absolute Neuts (auto) Neutrophils % Neutrophils % (Manual) Band Neutrophils % Lymphocytes % Lymphocytes % (Manual) Monocytes % Monocytes % (Manual) Eosinophils % Eosinophils % (Manual) Basophils % Basophils % (Manual) Myelocytes % (Man) Promyelocytes % (Man) Blast Cells % (Manual) Nucleated RBC % Metamyelocytes Hypochromia Platelet Estimate Polychromasia Poikilocytosis Anisocytosis Microcytosis Macrocytosis VBG pH POC VBG pCO2 POC VBG pO2 VBG HCO3 VBG O2 Sat (Marley) VBG Base Excess Sodium 137 Potassium 4.2 Chloride 102 Carbon Dioxide 22 Anion Gap 14 BUN 56.9 H Creatinine 11.2 H* Est GFR (CKD-EPI)AfAm 4.84 Est GFR (CKD-EPI)NonAf 4.18 Random Glucose 129 H Lactic Acid Calcium 9.4 Phosphorus 6.6 H Magnesium 2.6 H Total Bilirubin 1.0 AST 11 L ALT 14 Alkaline Phosphatase 95 Creatine Kinase Troponin I Total Protein 7.4 Albumin 2.7 L Influenza A (Rapid) Influenza B (Rapid) RSV Rapid Active Medications Generic Name Dose Route Start Last Admin Trade Name Freq PRN Reason Stop Dose Admin Abacavir Sulfate 300 mg 11/25/19 22:00 11/26/19 10:03 Ziagen - PO 300 mg BID JIMENEZ Administration Acetaminophen 650 mg 11/25/19 19:40 11/26/19 06:34 Tylenol - PO 650 mg Q6H PRN Administration PAIN LEVEL 6-10 Acetylcysteine 200 mg 11/25/19 20:00 11/26/19 08:33 Mucomyst 20 Oral / Inh Use Only* NEB 200 mg RBID JIMENEZ Administration Albuterol Sulfate 1 amp 11/25/19 14:47 11/25/19 20:56 Ventolin 0.083% Nebulizer Soln - NEB 1 amp Q6H PRN Administration SHORT OF BREATH/WHEEZING Albuterol/Ipratropium 1 amp 11/25/19 15:00 11/26/19 08:33 Duoneb - NEB 1 amp Q3H JIMENEZ Administration Aspirin 81 mg 11/26/19 10:00 11/26/19 10:01 Asa - PO 81 mg DAILY JIMENEZ Administration Benzocaine/Menthol 1 each 11/26/19 02:16 11/26/19 02:40 Cepacol Lozenge - MM 1 each PRN PRN Administration SORE THROAT Citalopram Hydrobromide 10 mg 11/26/19 10:00 Celexa - PO DAILY JIMENEZ Famotidine 20 mg 11/25/19 22:00 11/25/19 22:45 Pepcid - PO 20 mg HS JIMENEZ Administration Fluconazole 100 mg 11/26/19 10:00 11/26/19 10:01 Diflucan - PO 100 mg DAILY JIMENEZ Administration Heparin Sodium (Porcine) 5,000 unit 11/25/19 22:00 11/26/19 06:29 Heparin - SQ 5,000 unit TID JIMENEZ Administration Heparin Sodium (Porcine) 300 unit 11/26/19 08:38 Heparin - IVPUSH 11/26/19 08:39 ONCE ONE Heparin Sodium (Porcine) 300 unit 11/26/19 08:45 Heparin - IVPUSH 11/26/19 10:46 Q1H JIMENEZ Piperacillin Sod/Tazobactam 50 mls @ 100 mls/hr 11/26/19 19:00 Sod 2.25 gm/ Dextrose IVPB Q8H-IV JIMENEZ Protocol Sodium Chloride 250 mls @ 3,000 mls/hr 11/26/19 08:37 Normal Saline - IV 11/27/19 08:37 PRN PRN Hypotension during Dialysis Sodium Chloride 250 mls @ 3,000 mls/hr 11/26/19 08:38 Normal Saline - IV 11/27/19 08:38 PRN PRN Hypotension during Dialysis Labetalol HCl 300 mg 11/25/19 22:00 11/26/19 10:01 Normodyne - PO 300 mg BID JIMENEZ Administration Lamivudine 50 mg 11/26/19 10:00 11/26/19 10:02 Epivir Oral Solution - PO 50 mg DAILY JIMENEZ Administration Lidocaine/Aluminum/Magnesium/Simeth 5 ml 11/25/19 18:00 11/26/19 06:31 Magic Mouthwash *Sjr Formula* - MM 5 ml Q6HPO JIMENEZ Administration Losartan Potassium 100 mg 11/26/19 10:00 11/26/19 10:03 Cozaar - PO 100 mg DAILY JIMENEZ Administration Methylprednisolone Sodium Succinate 60 mg 11/25/19 15:00 11/26/19 08:34 Solu-Medrol - IVPUSH 60 mg Q6H-IV JIMENEZ Administration Nifedipine 90 mg 11/26/19 10:00 11/26/19 10:01 Procardia Xl - PO 90 mg DAILY JIMENEZ Administration Nystatin 500,000 units 11/25/19 18:00 11/26/19 06:30 Nystatin Oral Suspension - PO 500,000 units Q6HPO JIMENEZ Administration Sevelamer Carbonate 1,600 mg 11/25/19 17:30 11/26/19 08:34 Renvela - PO Not Given TIDCM JIMENEZ Tiotropium [place] 2 puff 11/26/19 10:00 Spiriva Respimat IH DAILY JIMENEZ ASSESSMENT/PLAN: 69 y/o M, pmh of HIV, throat cancer s/p radiation at [facility], COPD not on home O2, ESRD (on dialysis M/W/F), cardiac arreswt x4 (last arrest was last month), presented to the ED because of SOB. #Acute COPD exacerbation -CXR no acute changes noted- no evidence of CAP -low suspicion for pna. -dc Zosyn per ID -FU ID reccs -IV medrol 60 q6h -VBG unremarkable. -Standing nebs, prn albuterol -Pulm consult -influenza, respiratory viral panel negative #Dysphagia -magic mouth wash -nystatin swish and swallow --FU Neck/Chest CT #Macrocytosis likely 2/2 to meds vs deficiency B12/Folate #ESRD Nephrology consulted: Dr. Pereyra #HIV -last CD4 in 600s 11/16/2019 -Resume pts home HAART #Throat Ca s/p radiation -w/ underlying dysphagia, mucositic changes in throat -give magic mouth wash, cover for oral candidiasis w/ oral fluconazole 200mg -Heme Onc evaluation for mucositis -FU Neck/Chest CT #LORNA Lung lesion primary vs mets. CT Chest 11/03- severe COPD, no consolidation, Tiny cavity in LORNA 7mm w/ mild thickening and questionable, b/l posterior CV pleural effusion. Cardiomegaly mild, aneurysmal dilation of ascending aorta 4.5cm in AP dimension. Exophytic left renal pole cyst and indeterminate exophytic lesion on right mid kidney laterally as well as posteriorly 1.6 and .8 cm. #HTN cont home meds #Depression/Anxiety continue Celexa. #HLD Continue Statin. #DVT ppx Heparin SQ. Visit type - Emergency Visit Emergency Visit: Yes ED Registration Date: 11/25/19 Care time: The patient presented to the Emergency Department on the above date and was hospitalized for further evaluation of their emergent condition. - New Patient This patient is new to me today: Yes Date on this admission: 11/26/19 - Critical Care Critical Care patient: No ATTENDING PHYSICIAN STATEMENT I saw and evaluated the patient. I reviewed the resident's note and discussed the case with the resident. I agree with the resident's findings and plan as documented. SUBJECTIVE: OBJECTIVE: ASSESSMENT AND PLAN:
[2019-11-26] MEDS: DOLUTEGRAVIR SODIUM 50 MG TABLET (NON-FORMULARY) PO SCH (13:36)
[2019-11-26] MEDS: CITALOPRAM HYDROBROMIDE 10 MG TABLET PO SCH (13:36)
--- NOTE | 2019-11-26 14:10 | CONSULT ---
Admitting History and Physical - Past Medical History Cardiovascular: Yes: HTN, Hyperlipdemia Pulmonary: Yes: COPD Gastrointestinal: Yes: Constipation, GERD Hepatobiliary: Yes: Other Renal/: Yes: Renal Inusuff, BPH Heme/Onc: Yes: Cancer Infectious Disease: Yes: HIV, STD's Musculoskeletal: Yes: Chronic low back pain Endocrine: Yes: Diabetes Mellitus (with retinopathy and nephropathy) - Past Surgical History Past Surgical History: Yes: Colonoscopy, Hernia Repair - Smoking History Smoking history: Current every day smoker Have you smoked in the past 12 months: Yes Aproximately how many cigarettes per day: 10 - Alcohol/Substance Use Hx Alcohol Use: Yes History of Substance Use: reports: None - Social History ADL: Independent 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 History of Recent Travel: No History - Admission Reason For Visit: CHEST PAIN - Hearing Hearing: Normal Hearing Aide: No With Patient: No Speech Evaluation - Communication Primary Language: THAI Communication: Yes: Simple Responses, Dysarthria - Speech Production Apraxia: No Able to Make Needs Known: Yes: Moderately Impaired Intelligibility: Yes: Moderately Impaired - Speech Characteristics Voice Loudness: Severely Soft/Quiet Voice Pitch: Yes: Severely Low Voice Phonatory-based Quality: Yes: Breathy, Loss of Voice Speech Pattern: Impaired Speech Clarity: < 75% Nasal Resonance: Hyponasal/Denasal Articulation: Yes: Precise Rate of Speech: Intact Voice, Other Observations: Yes: Progressively Weak Voice Voice Comment: Vocal quality is impaired characterized as strained, breathy, - Language/Auditory Comprehension Follows: Yes: 1 Stage Simple Commands (WFL), 2 Stage Simple Commands (WFL) Observation: Able to respond to yes/no queries: Yes, Yes/No Confusion: No, Comprehends Conversational Speech: Yes, Benefits from Slow Speech: No, Benefits from Repetiton: No, Benefits from Increased Volume of Speech: No - Language/Verbal Expression Able to Respond to Simple Queries: Yes: Mildly Impaired Able to Communicate Wants and Needs: Yes: Moderately Impaired Functional Communication Status: Yes: Moderately Impaired Aware of Errors: Yes Attempts to Correct Errors: Yes Use of Gestures: Yes Written Expression: Not examined Oral Expression: aphonic speech Reading Comprehension: Not examined Calculations: Not examined Attention: Yes: Intact - Swallow Evaluation/Bedside Assessment Current Nutritional Intake: Regular, Thin Liquids Oral Secretions: Yes: Halitosis, Dryness, Tongue Coated (Oral thrush) Tracheostomy Present: No Patient on Ventilator: No Dentition: Yes: Edentulous, Missing Teeth Facial Symmetry at Rest: Symmetrical Facial Symmetry on Retraction: Symmetrical Facial Movement: Controlled Sensation: Normal Facial Comment: Oral and facial features are within functional limits for speech and swallo Jaw Position: Closed at Rest Against Resistance Opening: Normal Against Resistance Closing: Normal Pucker Lips: Normal Smile: Normal Lips, Comment: within functional limits for speech and swallowing purposes. Lingual Movement: Normal Lingual Speed of Movement: Normal Lingual Movement Strgth Against Opposition: Normal Lingual Movement Characteristics: Normal Lingual Comment: within functional limits for speech and swallowing purposes. Gag Reflex: Weak Bite Reflex: Present Velopharyngeal Movement: Reduced Elevation Laryngeal Elevation: Impaired Laryngeal Movement: Able to Palpate Needs Assistance: Yes Rate of Intake: Impulsive Bolus Size: Large Labial Seal: WFL Chewing: WFL Oral Prep Time: WFL A-P Transit: WFL Timing of Swallow: WFL Odynophagia: Pharyngeal, Esophageal Coughing/Throat Clear: Yes (with every bite) Change in Voice: No Other Findings/Remarks: 69 yo male seen at bedside for swallow eval to r/o dysphagia Pt is minimally verbal with aphonic speech. PMHX includes HIV, COPD, ESRD, throat CA. Admitted for sob, LE weakness, non productive cough. Vocal quality is impaired characterized as breathy with reduced intensity and pitch. Volitional airway protection (without bolus) and swallow is WNL. Pt given PO trials of pureed, regular cut to bite sized pieces without total assistance revealed, adequate bolus formation and A P transport with a timely pharyngeal swallow (1-2 second average). Weak cough observed after every bite of solids with all consistencies suggested possible aspiration. Pt given po trials of ice chips thin liquids without assistance (patient refused ) revealed good labial containment, adequate bolus transfer with a timely pharyngeal swallow (1-2 second average). Weak cough observed after every bite of solids with all consistencies suggested possible aspiration. Recommendations - Speech Evaluation, Impression/Plan Impression: Pt presents with severe to profound pharyngeal phase dysphagia for both liquids and solids. Patient does not agree. Pt does not look safe for po at this time. Speech is aphonic. Local Owner Operator Truck Driver Goals: Tolerate the least restrictive solid and liquid consistencies without s/s of penetration / aspiration. Short Term Goals: Tolerate the least restrictive solid and liquid consistencies without s/s of penetration / aspiration. May need to consider alternative means of providing medication until sob resolves. Recommended Frequency for Therapy: Follow Up PRN - Dysphagia Impressions/Plan Swallowing Skills: Impaired Dysphagia Impressions: Severe Impairment (pharyngeal phase), Profound Impairment (pharyngeal phase), Risk of Aspiration, Suspect Aspiration *Silent aspiration: cannot be R/O at bedside Dysphagia Evaluation Summary: Consider NPO status at time. Provide oral care. Consider alternate methods for providing medications, hydration and nutrition. Pt does not look safe for swallow trials at this time. Results given verbally to discharge door operator and PCP via chart. ROLLER GOLD LEAF to follow up for PO intake. Recommendations: Modified Barium Swallow - Recommendations Diet Consistency: NPO Liquids: NPO
--- NOTE | 2019-11-26 14:18 | PN ---
Teaching Attending Note Name of Resident: Michael Vogel ATTENDING PHYSICIAN STATEMENT I saw and evaluated the patient. I reviewed the resident's note and discussed the case with the resident. I agree with the resident's findings and plan as documented. 69 M h/o HIV (last, throat cancer s/p radiation at [facility], COPD not on home O2, ESRD (on dialysis M/W/F), cardiac arrest x4 (last arrest was last month ), presenting because of sudden onset of shortness of breath and cough with sputum production, and weakness. Admitted for COPDE, ?PNA/URI and progressive dysphagia/odynophagia and reported weight loss. Patient sent today for CT chest/ neck w/ IV contrast then he will get dialyzed. Pending speech/swallow/GI evaluation. Otherwise patient protecting airways, no signs of impending respiratory failure. PE GA cachectic, AAox3, sitting upright in bed, NAD HEENT NC/AT, EOMI, trace oral thrush on tongue edges, mucositic changes in posterior oropharynx, no stridor Chest coarse b/l BS, faint end expiratory wheezes, no crackles CVS s1, S2+, RRR Abd Soft, NT, ND, BS+ Ext LUE fistula with good thrill, no LE edema, dry extremities, moves all 4 ext. Vital Signs - 24 hr 11/25/19 11/25/19 11/25/19 16:14 18:39 23:12 Temperature 97.6 F 97.8 F 97.8 F Pulse Rate 87 Pulse Rate [ 85 82 Apical] Respiratory 23 H 23 H 20 Rate Blood Pressure 158/85 Blood Pressure 144/66 138/72 [Right Arm] O2 Sat by Pulse 96 96 99 Oximetry (%) 11/26/19 11/26/19 11/26/19 00:39 02:00 06:00 Temperature 97.5 F L 97.6 F Pulse Rate 84 76 Pulse Rate [ Apical] Respiratory 20 18 20 Rate Blood Pressure 129/74 144/79 Blood Pressure [Right Arm] O2 Sat by Pulse 99 Oximetry (%) 11/26/19 11/26/19 11/26/19 10:00 13:55 14:00 Temperature 97.5 F L 98.5 F Pulse Rate 83 87 78 Pulse Rate [ Apical] Respiratory 20 18 18 Rate Blood Pressure 122/87 115/70 128/73 Blood Pressure [Right Arm] O2 Sat by Pulse Oximetry (%) Microbiology 11/25/19 13:50 Blood - Peripheral Venous Blood Culture - Preliminary NO GROWTH OBTAINED AFTER 24 HOURS, INCUBATION TO CONTINUE FOR 4 DAYS. 11/25/19 13:40 Blood - Peripheral Venous Blood Culture - Preliminary NO GROWTH OBTAINED AFTER 24 HOURS, INCUBATION TO CONTINUE FOR 4 DAYS. Laboratory Results - last 24 hr 11/25/19 11/25/19 11/25/19 13:40 13:40 16:30 WBC RBC Hgb Hct MCV MCH MCHC RDW Plt Count MPV Absolute Neuts (auto) Neutrophils % Neutrophils % (Manual) Band Neutrophils % Lymphocytes % Lymphocytes % (Manual) Monocytes % Monocytes % (Manual) Eosinophils % Eosinophils % (Manual) Basophils % Basophils % (Manual) Myelocytes % (Man) Promyelocytes % (Man) Blast Cells % (Manual) Nucleated RBC % Metamyelocytes Hypochromia Platelet Estimate Polychromasia Poikilocytosis Anisocytosis Microcytosis Macrocytosis VBG pH 7.39 POC VBG pCO2 43.4 POC VBG pO2 < 49 H VBG HCO3 25.8 VBG O2 Sat (Marley) 52.6 L VBG Base Excess 1.1 Sodium Potassium Chloride Carbon Dioxide Anion Gap BUN Creatinine Est GFR (CKD-EPI)AfAm Est GFR (CKD-EPI)NonAf Random Glucose Lactic Acid 2.0 Calcium Phosphorus Magnesium Total Bilirubin AST ALT Alkaline Phosphatase Troponin I Total Protein Albumin Influenza A (Rapid) Negative Influenza B (Rapid) Negative RSV Rapid 11/25/19 11/25/19 11/25/19 16:30 20:00 21:50 WBC RBC Hgb Hct MCV MCH MCHC RDW Plt Count MPV Absolute Neuts (auto) Neutrophils % Neutrophils % (Manual) Band Neutrophils % Lymphocytes % Lymphocytes % (Manual) Monocytes % Monocytes % (Manual) Eosinophils % Eosinophils % (Manual) Basophils % Basophils % (Manual) Myelocytes % (Man) Promyelocytes % (Man) Blast Cells % (Manual) Nucleated RBC % Metamyelocytes Hypochromia Platelet Estimate Polychromasia Poikilocytosis Anisocytosis Microcytosis Macrocytosis VBG pH POC VBG pCO2 POC VBG pO2 VBG HCO3 VBG O2 Sat (Marley) VBG Base Excess Sodium Potassium Chloride Carbon Dioxide Anion Gap BUN Creatinine Est GFR (CKD-EPI)AfAm Est GFR (CKD-EPI)NonAf Random Glucose Lactic Acid 1.7 Calcium Phosphorus Magnesium Total Bilirubin AST ALT Alkaline Phosphatase Troponin I 0.02 Total Protein Albumin Influenza A (Rapid) Influenza B (Rapid) RSV Rapid Negative 11/26/19 11/26/19 06:28 06:28 WBC 8.3 RBC 3.96 L Hgb 13.0 Hct 40.2 MCV 101.7 H MCH 32.8 MCHC 32.3 RDW 17.2 H Plt Count 229 MPV 8.9 Absolute Neuts (auto) 7.6 Neutrophils % 91.8 H Neutrophils % (Manual) 98.1 H Band Neutrophils % 0.0 Lymphocytes % 6.1 L D Lymphocytes % (Manual) 1.9 L D Monocytes % 2.0 L Monocytes % (Manual) 0 L D Eosinophils % 0.0 D Eosinophils % (Manual) 0.0 Basophils % 0.1 Basophils % (Manual) 0.0 Myelocytes % (Man) 0 Promyelocytes % (Man) 0 Blast Cells % (Manual) 0 Nucleated RBC % 0 Metamyelocytes 0 Hypochromia 0 Platelet Estimate Normal Polychromasia 0 Poikilocytosis 0 Anisocytosis 1+ Microcytosis 0 Macrocytosis 1+ VBG pH POC VBG pCO2 POC VBG pO2 VBG HCO3 VBG O2 Sat (Marley) VBG Base Excess Sodium 137 Potassium 4.2 Chloride 102 Carbon Dioxide 22 Anion Gap 14 BUN 56.9 H Creatinine 11.2 H* Est GFR (CKD-EPI)AfAm 4.84 Est GFR (CKD-EPI)NonAf 4.18 Random Glucose 129 H Lactic Acid Calcium 9.4 Phosphorus 6.6 H Magnesium 2.6 H Total Bilirubin 1.0 AST 11 L ALT 14 Alkaline Phosphatase 95 Troponin I Total Protein 7.4 Albumin 2.7 L Influenza A (Rapid) Influenza B (Rapid) RSV Rapid Current Medications Generic Name Dose Route Start Last Admin Trade Name Freq PRN Reason Stop Dose Admin Abacavir Sulfate 300 mg 11/25/19 22:00 11/26/19 10:03 Ziagen - PO 300 mg BID JIMENEZ Administration Acetaminophen 650 mg 11/25/19 19:40 11/26/19 06:34 Tylenol - PO 650 mg Q6H PRN Administration PAIN LEVEL 6-10 Acetylcysteine 200 mg 11/25/19 20:00 11/26/19 08:33 Mucomyst 20 Oral / Inh Use Only* NEB 200 mg RBID JIMENEZ Administration Albuterol Sulfate 1 amp 02/06/20 14:47 11/25/19 20:56 Ventolin 0.083% Nebulizer Soln - NEB 1 amp Q6H PRN Administration SHORT OF BREATH/WHEEZING Albuterol/Ipratropium 1 amp 11/25/19 15:00 11/26/19 08:33 Duoneb - NEB 1 amp Q3H JIMENEZ Administration Aspirin 81 mg 11/26/19 10:00 11/26/19 10:01 Asa - PO 81 mg DAILY JIMENEZ Administration Benzocaine/Menthol 1 each 11/26/19 02:16 11/26/19 02:40 Cepacol Lozenge - MM 1 each PRN PRN Administration SORE THROAT Citalopram Hydrobromide 10 mg 11/26/19 10:00 11/26/19 13:36 Celexa - PO 10 mg DAILY JIMENEZ Administration Famotidine 20 mg 11/25/19 22:00 11/25/19 22:45 Pepcid - PO 20 mg HS JIMENEZ Administration Fluconazole 100 mg 11/26/19 10:00 11/26/19 10:01 Diflucan - PO 100 mg DAILY JIMENEZ Administration Heparin Sodium (Porcine) 5,000 unit 11/25/19 22:00 11/26/19 13:36 Heparin - SQ 5,000 unit TID JIMENEZ Administration Heparin Sodium (Porcine) 300 unit 11/26/19 08:45 Heparin - IVPUSH 11/26/19 10:46 Q1H JIMENEZ Piperacillin Sod/Tazobactam 50 mls @ 100 mls/hr 11/26/19 19:00 Sod 2.25 gm/ Dextrose IVPB Q8H-IV JIMENEZ Protocol Sodium Chloride 250 mls @ 3,000 mls/hr 11/26/19 08:37 Normal Saline - IV 11/27/19 08:37 PRN PRN Hypotension during Dialysis Sodium Chloride 250 mls @ 3,000 mls/hr 11/26/19 08:38 Normal Saline - IV 11/27/19 08:38 PRN PRN Hypotension during Dialysis Labetalol HCl 300 mg 11/25/19 22:00 11/26/19 10:01 Normodyne - PO 300 mg BID JIMENEZ Administration Lamivudine 50 mg 11/26/19 10:00 11/26/19 10:02 Epivir Oral Solution - PO 50 mg DAILY JIMENEZ Administration Lidocaine/Aluminum/Magnesium/Simeth 5 ml 11/25/19 18:00 11/26/19 14:10 Magic Mouthwash *Sjr Formula* - MM 5 ml Q6HPO JIMENEZ Administration Losartan Potassium 100 mg 11/26/19 10:00 11/26/19 10:03 Cozaar - PO 100 mg DAILY JIMENEZ Administration Methylprednisolone Sodium Succinate 60 mg 11/25/19 15:00 11/26/19 08:34 Solu-Medrol - IVPUSH 60 mg Q6H-IV JIMENEZ Administration Nifedipine 90 mg 11/26/19 10:00 11/26/19 10:01 Procardia Xl - PO 90 mg DAILY JIMENEZ Administration Nystatin 500,000 units 11/25/19 18:00 11/26/19 13:35 Nystatin Oral Suspension - PO 500,000 units Q6HPO JIMENEZ Administration Sevelamer Carbonate 1,600 mg 11/25/19 17:30 11/26/19 13:34 Renvela - PO 1,600 mg TIDCM JIMENEZ Administration Tiotropium [place] 2 puff 11/26/19 10:00 11/26/19 13:49 Spiriva Respimat IH 2 puff DAILY JIMENEZ Administration A/P: 69 AA Male, h/o HIV, throat cancer s/p radiation at [facility], COPD not on home O2, active smoker 1/2 PPD, ESRD (on dialysis M/W/F), remote h/o cardiac arrest x4 (last arrest was last month per chart), admitted for COPDE w/ ?URI, and progressive dysphagia. Acute COPDE Improved post nebs/Steroids on Zosyn/Vanc to cover for possible PNA, awaiting CT results Pulmonary evaluation ID consult ESRD Renal consult: Dr Frazier Will get HD today HIV last CD4 in 600s 11/16/2019 Resume pts home HAART ID consult Throat Ca s/p radiation w/ underlying dysphagia, mucositic changes in throat reported weight loss, odynophagia cont. magic mouth wash, cont. rx for oral candidiasis w/ oral fluconazole 100mg daily Heme Onc evaluation for mucositis CT neck and chest w/ IV contrast for evaluation to r/o mass occupying lesion, will get HD after CT scan DVT ppx: Heparin SC FEN: IVF/daily lytes, soft/liquid diet as tolerated Telemetry admission
[2019-11-26] MEDS ORDERED: ALBUTEROL SO4 0.083% IH SOL 2.5 MG/3 ML VIAL.NEB. NEB PRN (14:47)
--- NOTE | 2019-11-26 14:56 | CON.PULM ---
Consult Consult Specialty:: PULM/CCM Referred by:: Hospitalist Reason for Consultation:: SOB - History of Present Illness Chief Complaint: SOB History of Present Illness: 69 M, HIV, laryngeal cancer s/p radiation (no surgery was apparently performed) at [facility] about 3 years ago, COPD due to active smoking (1/2 PPD), ESRD ( on dialysis M/W/F), Cardiac arrest x4 (last arrest was last month). Admitted via the ER due to shortness of breath and cough with sputum production. He was recently admitted for AE of COPD. No travel history or sick contacts. No hemoptysis or night sweats. He does have hoarseness of voice and decreased ability to phonate. There is no history that would be consistent with OSAS. CT: airway appears patent, obliterated right pyriform sinus, stable LORNA likely post-infectious cavity, extensive emphysema, scattered "tree in bud" infiltrates - History Source History Provided By: Patient Limitations to Obtaining History: No Limitations - Past Medical History Cardio/Vascular: Yes: HTN, Hyperlipdemia Pulmonary: Yes: Bronchitis, COPD, Pneumonia. 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 History of Recent Travel: No Home Medications - Allergies Allergies/Adverse Reactions: Allergies Allergy/AdvReac Type Severity Reaction Status Date / Time No Known Drug Allergies Allergy Verified 11/02/19 12:27 - Home Medications Home Medications: Ambulatory Orders Abacavir Sulfate [Abacavir] 600 mg PO DAILY 11/26/19 Albuterol Sulfate Inhaler - [Ventolin HFA Inhaler -] 2 puff IH Q6H 11/26/19 Aspirin [ASA -] 81 mg PO DAILY 11/26/19 Citalopram Hydrobromide [Celexa -] 10 mg PO DAILY 11/26/19 Dolutegravir Sodium [Tivicay] 50 mg PO DAILY 11/26/19 Labetalol HCl 400 mg PO BID 11/26/19 Lamivudine [Epivir Hbv] 50 mg PO DAILY 11/26/19 Latanoprost 0.005% Eye Drops [Xalatan 0.005% Eye Drops -] 1 drop OU HS 11/26/19 Lidocaine/Prilocaine Cream [Emla -] 1 applic TP UTDICT 11/26/19 Ranitidine HCl 300 mg PO DAILY 11/26/19 Sevelamer Carbonate 1,600 mg PO TID 11/26/19 Sucroferric Oxyhydroxide [Velphoro] 500 mg PO TID 11/26/19 Umeclidinium Brm/Vilanterol Tr [Anoro Ellipta 62.5-25 Mcg INH] 1 each IH DAILY 11/26/19 Review of Systems - Review of Systems Constitutional: reports: Malaise, Unintentional Wgt. Loss. denies: Chills, Fever, Night Sweats Eyes: reports: No Symptoms HENT: reports: No Symptoms Neck: reports: Tenderness, Other (discomfort / hoarseness of voice) Respiratory: reports: Cough, SOB, SOB on Exertion, Wheezing. denies: Hemoptysis , Orthopnea, PND, Snoring Gastrointestinal: reports: No Symptoms Genitourinary: reports: No Symptoms Musculoskeletal: reports: Back Pain Integumentary: reports: No Symptoms Neurological: reports: No Symptoms Endocrine: reports: No Symptoms Hematology/Lymphatic: reports: No Symptoms Psychiatric: reports: No Symptoms Physical Exam Vital Sings: Vital Signs Temperature 98.5 F 11/26/19 13:55 Pulse Rate 78 11/26/19 14:00 Respiratory Rate 18 11/26/19 14:00 Blood Pressure 128/73 11/26/19 14:00 O2 Sat by Pulse Oximetry (%) 99 11/26/19 00:39 Constitutional: Yes: Mild Distress, Thin Eyes: Yes: Conjunctiva Clear, EOM Intact HENT: Yes: Atraumatic, Normocephalic Neck: Yes: Supple, Trachea Midline, Other (NO STRIDOR ) Cardiovascular: Yes: Regular Rate and Rhythm Respiratory: Yes: Cough, Diminished, Rhonchi, SOB, SOB on Exertion, Tachypnea, Wheezes. No: Accessory Muscle Use, Rales, Stridor ...Inspection: Yes: WNL ...Clubbing: No Gastrointestinal: Yes: Normal Bowel Sounds, Soft Musculoskeletal: Yes: WNL Extremities: Yes: WNL Edema: No Peripheral Pulses WNL: Yes Integumentary: Yes: WNL Neurological: Yes: WNL, Alert, Oriented ...Motor Strength: WNL Psychiatric: Yes: WNL, Alert, Oriented Labs: CBC, BMP 11/26/19 06:28 11/26/19 06:28 Imaging - Results Chest X-ray: Report Reviewed, Image Reviewed Cat Scan: Report Reviewed, Image Reviewed Problem List - Problems (1) COPD exacerbation Code(s): J44.1 - CHRONIC OBSTRUCTIVE PULMONARY DISEASE W (ACUTE) EXACERBATION (2) Anemia Code(s): D64.9 - ANEMIA, UNSPECIFIED Qualifiers: Anemia type: unspecified type Qualified Code(s): D64.9 - Anemia, unspecified (3) Anemia, chronic disease Code(s): D63.8 - ANEMIA IN OTHER CHRONIC DISEASES CLASSIFIED ELSEWHERE (4) CKD (chronic kidney disease) requiring chronic dialysis Code(s): N18.6 - END STAGE RENAL DISEASE; Z99.2 - DEPENDENCE ON RENAL DIALYSIS (5) End stage renal disease Code(s): N18.6 - END STAGE RENAL DISEASE (6) HIV (human immunodeficiency virus infection) Code(s): B20 - HUMAN IMMUNODEFICIENCY VIRUS [HIV] DISEASE (7) HTN (hypertension) Code(s): I10 - ESSENTIAL (PRIMARY) HYPERTENSION (8) Hyperlipidemia Code(s): E78.5 - HYPERLIPIDEMIA, UNSPECIFIED Qualifiers: (10) COPD exacerbation Code(s): J44.1 - CHRONIC OBSTRUCTIVE PULMONARY DISEASE W (ACUTE) EXACERBATION (11) Shortness of breath Code(s): R06.02 - SHORTNESS OF BREATH Assessment/Plan ABX per ID Medrol BD TX Standing and PRN Supplemental O2 as needed No smoking was counseled VTE prophylaxis Consider ENT evaluation for direct Laryngoscopis evaluation HD per Renal Will follow Thank you. Dr Schmidt
[2019-11-26] MEDS: HEPARIN NA (PORCINE) 5,000 UNITS/ML 1ML VIAL IVPUSH SCH ×3 (15:00→17:00)
--- NOTE | 2019-11-26 16:03 | CON.GI ---
Consult Consult Specialty:: GI - History of Present Illness History of Present Illness: 69-year-old male with HIV, CAD, throat ca s/p radiation, end-stage renal disease presents with acute hypoxic respiratory distress since yesterday, weak appearing here with sirs, likely secondary to sepsis, rule out pneumonia. Rule out ACS/CHF. He contiues to smoke and has productive cough of yellowish phelgm He has throat pain but denies odynophagia. He underwent EGD in 2018 and was noted to have chronic gastritis. The esophagus was normal. - Past Medical History Cardio/Vascular: Yes: HTN, Hyperlipdemia Pulmonary: Yes: Bronchitis, COPD, Pneumonia. 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 History of Recent Travel: No Home Medications - Allergies Allergies/Adverse Reactions: Allergies Allergy/AdvReac Type Severity Reaction Status Date / Time No Known Drug Allergies Allergy Verified 11/02/19 12:27 - Home Medications Home Medications: Ambulatory Orders Abacavir Sulfate [Abacavir] 600 mg PO DAILY 11/26/19 Albuterol Sulfate Inhaler - [Ventolin HFA Inhaler -] 2 puff IH Q6H 11/26/19 Aspirin [ASA -] 81 mg PO DAILY 11/26/19 Citalopram Hydrobromide [Celexa -] 10 mg PO DAILY 11/26/19 Dolutegravir Sodium [Tivicay] 50 mg PO DAILY 11/26/19 Labetalol HCl 400 mg PO BID 11/26/19 Lamivudine [Epivir Hbv] 50 mg PO DAILY 11/26/19 Latanoprost 0.005% Eye Drops [Xalatan 0.005% Eye Drops -] 1 drop OU HS 11/26/19 Lidocaine/Prilocaine Cream [Emla -] 1 applic TP UTDICT 11/26/19 Ranitidine HCl 300 mg PO DAILY 11/26/19 Sevelamer Carbonate 1,600 mg PO TID 11/26/19 Sucroferric Oxyhydroxide [Velphoro] 500 mg PO TID 11/26/19 Umeclidinium Brm/Vilanterol Tr [Anoro Ellipta 62.5-25 Mcg INH] 1 each IH DAILY 11/26/19 Physical Exam-GI Vital Signs: Vital Signs Temperature 98.5 F 11/26/19 13:55 Pulse Rate 80 11/26/19 15:30 Respiratory Rate 18 11/26/19 15:30 Blood Pressure 122/68 11/26/19 15:30 O2 Sat by Pulse Oximetry (%) 99 11/26/19 00:39 Constitutional: Yes: Cachectic, Poor Hygeine HENT: Yes: Atraumatic Neck: Yes: Supple Cardiovascular: Yes: Regular Rate and Rhythm Respiratory: Yes: CTA Bilaterally ...Palpate: Yes: Soft. No: Firm/Rigid, Guarding, Hepatomegaly, Mass, Pulsatile Mass, Splenomegaly, Tenderness Labs: CBC, BMP 11/26/19 06:28 11/26/19 06:28 Problem List - Problems (1) Throat pain Assessment/Plan: r/o secondary to previous radiation and possble pharyngytis R> conisder UGIS,patient poor candidate for GI procedure at this time continue PPI Mylanta 30cc tid Code(s): R07.0 - PAIN IN THROAT
--- NOTE | 2019-11-26 16:55 | PN ---
Progress Note (short form) - Note Progress Note: overall improved on HD now remains with hoarse voice Vital Signs Period Temp Pulse Resp BP Sys/Montes Pulse Ox Last 24 Hr 97.5 F-98.5 F 76-87 18-23 108-158/62-94 96-99 cor-rrr lungs decreased bs at bases abd soft,nt ext no edema CBC, BMP 11/26/19 06:28 11/26/19 06:28 Microbiology 11/25/19 13:50 Blood - Peripheral Venous Blood Culture - Preliminary NO GROWTH OBTAINED AFTER 24 HOURS, INCUBATION TO CONTINUE FOR 4 DAYS. 11/25/19 13:40 Blood - Peripheral Venous Blood Culture - Preliminary NO GROWTH OBTAINED AFTER 24 HOURS, INCUBATION TO CONTINUE FOR [address] scan- advanced emphysema, no infiltrates a/p ?copd exacerbation -can d/c antibiotics stable HIV please continue HIV meds esrd/hd- s/p esrd laryngeal cancer- consider ENT evaluation
[2019-11-26] MEDS: SIMETHICONE 40 MG/0.6 ML BOTTLE PO SCH (17:15)
--- NOTE | 2019-11-26 18:03 | CONSULT ---
Consult Consult Specialty:: Nephrology Reason for Consultation:: esrd - History of Present Illness Chief Complaint: cough and shortness of breath History of Present Illness: Pt is a 69 year old male with pmhx of esrd, hiv, copd, and cardiac arrest who presents to the ER with shortness of breath. He says that he gets sob with exertion. He was due for HD today. He is currently getting HD. He had a recent admission for copd. He denies fevers or chills. He denies chest pain or palpitations. He denies fevers or chills. 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 History of Recent Travel: No Home Medications - Allergies Allergies/Adverse Reactions: Allergies Allergy/AdvReac Type Severity Reaction Status Date / Time No Known Drug Allergies Allergy Verified 11/02/19 12:27 - Home Medications Home Medications: Ambulatory Orders Abacavir Sulfate [Abacavir] 600 mg PO DAILY 11/26/19 Albuterol Sulfate Inhaler - [Ventolin HFA Inhaler -] 2 puff IH Q6H 11/26/19 Aspirin [ASA -] 81 mg PO DAILY 11/26/19 Citalopram Hydrobromide [Celexa -] 10 mg PO DAILY 11/26/19 Dolutegravir Sodium [Tivicay] 50 mg PO DAILY 11/26/19 Labetalol HCl 400 mg PO BID 11/26/19 Lamivudine [Epivir Hbv] 50 mg PO DAILY 11/26/19 Latanoprost 0.005% Eye Drops [Xalatan 0.005% Eye Drops -] 1 drop OU HS 11/26/19 Lidocaine/Prilocaine Cream [Emla -] 1 applic TP UTDICT 11/26/19 Ranitidine HCl 300 mg PO DAILY 11/26/19 Sevelamer Carbonate 1,600 mg PO TID 11/26/19 Sucroferric Oxyhydroxide [Velphoro] 500 mg PO TID 11/26/19 Umeclidinium Brm/Vilanterol Tr [Anoro Ellipta 62.5-25 Mcg INH] 1 each IH DAILY 11/26/19 Family Medical History Family History: Denies Review of Systems - Review of Systems Constitutional: reports: Malaise Eyes: reports: No Symptoms HENT: reports: No Symptoms Neck: reports: No Symptoms Respiratory: reports: Cough, SOB, SOB on Exertion Gastrointestinal: reports: No Symptoms Genitourinary: reports: No Symptoms Musculoskeletal: reports: No Symptoms Integumentary: reports: No Symptoms Endocrine: reports: No Symptoms Physical Exam Vital Signs: Vital Signs Temperature 98.5 F 11/26/19 13:55 Pulse Rate 82 11/26/19 16:00 Respiratory Rate 18 11/26/19 16:00 Blood Pressure 128/67 11/26/19 16:00 O2 Sat by Pulse Oximetry (%) 99 11/26/19 00:39 Constitutional: Yes: Calm Eyes: Yes: Conjunctiva Clear HENT: Yes: Atraumatic Neck: Yes: Supple Cardiovascular: Yes: S1, S2 Respiratory: Yes: On Nasal O2 Gastrointestinal: Yes: Soft Musculoskeletal: Yes: WNL Edema: No Neurological: Yes: Oriented Labs: CBC, BMP 11/26/19 06:28 11/26/19 06:28 Imaging - Results Chest X-ray: Report Reviewed Problem List - Problems (1) End stage renal disease Code(s): N18.6 - END STAGE RENAL DISEASE (2) HIV (human immunodeficiency virus infection) Code(s): B20 - HUMAN IMMUNODEFICIENCY VIRUS [HIV] DISEASE Assessment/Plan Current Medications Generic Name Dose Route Start Last Admin Trade Name Freq PRN Reason Stop Dose Admin Abacavir Sulfate 300 mg 11/25/19 22:00 11/26/19 10:03 Ziagen - PO 300 mg BID JIMENEZ Administration Acetaminophen 650 mg 11/25/19 19:40 02/07/20 06:34 Tylenol - PO 650 mg Q6H PRN Administration PAIN LEVEL 6-10 Albuterol Sulfate 1 amp 11/26/19 14:47 Ventolin 0.083% Nebulizer Soln - NEB Q4H PRN SHORT OF BREATH/WHEEZING Albuterol/Ipratropium 1 amp 11/26/19 16:00 11/26/19 16:40 Duoneb - NEB 1 amp RQID JIMENEZ Administration Aspirin 81 mg 11/26/19 10:00 11/26/19 10:01 Asa - PO 81 mg DAILY JIMENEZ Administration Benzocaine/Menthol 1 each 11/26/19 02:16 11/26/19 02:40 Cepacol Lozenge - MM 1 each PRN PRN Administration SORE THROAT Citalopram Hydrobromide 10 mg 11/26/19 10:00 11/26/19 13:36 Celexa - PO 10 mg DAILY JIMENEZ Administration Famotidine 20 mg 11/25/19 22:00 11/25/19 22:45 Pepcid - PO 20 mg HS JMIENEZ Administration Fluconazole 100 mg 11/26/19 10:00 11/26/19 10:01 Diflucan - PO 100 mg DAILY JIMENEZ Administration Heparin Sodium (Porcine) 5,000 unit 11/25/19 22:00 11/26/19 13:36 Heparin - SQ 5,000 unit TID JIMENEZ Administration Sodium Chloride 250 mls @ 3,000 mls/hr 11/26/19 14:00 Normal Saline - IV 11/27/19 13:59 PRN PRN Hypotension during Dialysis Sodium Chloride 250 mls @ 3,000 mls/hr 11/26/19 14:00 Normal Saline - IV PRN PRN Hypotension during Dialysis Labetalol HCl 300 mg 11/25/19 22:00 11/26/19 10:01 Normodyne - PO 300 mg BID JIMENEZ Administration Lamivudine 50 mg 11/26/19 10:00 11/26/19 10:02 Epivir Oral Solution - PO 50 mg DAILY JIMENEZ Administration Lidocaine/Aluminum/Magnesium/Simeth 5 ml 11/25/19 18:00 11/26/19 14:10 Magic Mouthwash *Sjr Formula* - MM 5 ml Q6HPO JIMENEZ Administration Losartan Potassium 100 mg 11/26/19 10:00 11/26/19 10:03 Cozaar - PO 100 mg DAILY JIMENEZ Administration Methylprednisolone Sodium Succinate 60 mg 11/25/19 15:00 11/26/19 08:34 Solu-Medrol - IVPUSH 60 mg Q6H-IV JIMEENZ Administration Nifedipine 90 mg 11/26/19 10:00 11/26/19 10:01 Procardia Xl - PO 90 mg DAILY JIMENEZ Administration Nystatin 500,000 units 11/25/19 18:00 11/26/19 13:35 Nystatin Oral Suspension - PO 500,000 units Q6HPO JIMENEZ Administration Sevelamer Carbonate 1,600 mg 11/25/19 17:30 11/26/19 13:34 Renvela - PO 1,600 mg TIDCM JIMENEZ Administration 1. Shortness of breath 2. ESRD on HD 3. anemia 4. Hypertension 5. Hx of Cardiac arrest 6. HIV Plan - HD today - follow up ct scan - monitor bp - renal diet
--- NOTE | 2019-11-26 18:36 | PN ---
Physical Exam: SUBJECTIVE: Patient seen and examined. Says she feels much better today. Says her breathing has improved. OBJECTIVE: Vital Signs Period Temp Pulse Resp BP Sys/Montes Pulse Ox Last 24 Hr 97.5 F-98.5 F 61-94 18-23 94-158/55-94 96-99 GENERAL: a/o x 3, in nad HEAD: Normal with no signs of trauma. EYES: PERRL, extraocular movements intact, sclera anicteric ENT: oropharynx clear without exudates, dry mucous membranes. NECK: supple. LUNGS: decreased breath sounds, no crackles heard but patient with large body habitus HEART: Regular rate and rhythm, S1, S2 without murmur, rub or gallop. ABDOMEN: Soft, nontender, nondistended, normoactive bowel sounds, no guarding EXTREMITIES: 2+ pulses, + edema. b/l hands with no ttp, negative tinel, phalen test NEUROLOGICAL: Cranial nerves II through XII grossly intact. Normal speech, gait not observed. Laboratory Results - last 24 hr 11/25/19 11/25/19 11/26/19 20:00 21:50 06:28 WBC 8.3 RBC 3.96 L Hgb 13.0 Hct 40.2 MCV 101.7 H MCH 32.8 MCHC 32.3 RDW 17.2 H Plt Count 229 MPV 8.9 Absolute Neuts (auto) 7.6 Neutrophils % 91.8 H Neutrophils % (Manual) 98.1 H Band Neutrophils % 0.0 Lymphocytes % 6.1 L D Lymphocytes % (Manual) 1.9 L D Monocytes % 2.0 L Monocytes % (Manual) 0 L D Eosinophils % 0.0 D Eosinophils % (Manual) 0.0 Basophils % 0.1 Basophils % (Manual) 0.0 Myelocytes % (Man) 0 Promyelocytes % (Man) 0 Blast Cells % (Manual) 0 Nucleated RBC % 0 Metamyelocytes 0 Hypochromia 0 Platelet Estimate Normal Polychromasia 0 Poikilocytosis 0 Anisocytosis 1+ Microcytosis 0 Macrocytosis 1+ Sodium Potassium Chloride Carbon Dioxide Anion Gap BUN Creatinine Est GFR (CKD-EPI)AfAm Est GFR (CKD-EPI)NonAf Random Glucose Lactic Acid 1.7 Calcium Phosphorus Magnesium Total Bilirubin AST ALT Alkaline Phosphatase Troponin I 0.02 Total Protein Albumin 11/26/19 06:28 WBC RBC Hgb Hct MCV MCH MCHC RDW Plt Count MPV Absolute Neuts (auto) Neutrophils % Neutrophils % (Manual) Band Neutrophils % Lymphocytes % Lymphocytes % (Manual) Monocytes % Monocytes % (Manual) Eosinophils % Eosinophils % (Manual) Basophils % Basophils % (Manual) Myelocytes % (Man) Promyelocytes % (Man) Blast Cells % (Manual) Nucleated RBC % Metamyelocytes Hypochromia Platelet Estimate Polychromasia Poikilocytosis Anisocytosis Microcytosis Macrocytosis Sodium 137 Potassium 4.2 Chloride 102 Carbon Dioxide 22 Anion Gap 14 BUN 56.9 H Creatinine 11.2 H* Est GFR (CKD-EPI)AfAm 4.84 Est GFR (CKD-EPI)NonAf 4.18 Random Glucose 129 H Lactic Acid Calcium 9.4 Phosphorus 6.6 H Magnesium 2.6 H Total Bilirubin 1.0 AST 11 L ALT 14 Alkaline Phosphatase 95 Troponin I Total Protein 7.4 Albumin 2.7 L Active Medications Generic Name Dose Route Start Last Admin Trade Name Freq PRN Reason Stop Dose Admin Abacavir Sulfate 300 mg 11/25/19 22:00 11/26/19 10:03 Ziagen - PO 300 mg BID JIMENEZ Administration Acetaminophen 650 mg 11/25/19 19:40 11/26/19 06:34 Tylenol - PO 650 mg Q6H PRN Administration PAIN LEVEL 6-10 Albuterol Sulfate 1 amp 11/26/19 14:47 Ventolin 0.083% Nebulizer Soln - NEB Q4H PRN SHORT OF BREATH/WHEEZING Albuterol/Ipratropium 1 amp 11/26/19 16:00 11/26/19 16:40 Duoneb - NEB 1 amp RQID JIMENEZ Administration Aspirin 81 mg 11/26/19 10:00 11/26/19 10:01 Asa - PO 81 mg DAILY JIMENEZ Administration Benzocaine/Menthol 1 each 11/26/19 02:16 11/26/19 02:40 Cepacol Lozenge - MM 1 each PRN PRN Administration SORE THROAT Citalopram Hydrobromide 10 mg 11/26/19 10:00 11/26/19 13:36 Celexa - PO 10 mg DAILY JIMENEZ Administration Famotidine 20 mg 11/25/19 22:00 11/25/19 22:45 Pepcid - PO 20 mg HS JIMENEZ Administration Fluconazole 100 mg 11/26/19 10:00 11/26/19 10:01 Diflucan - PO 100 mg DAILY JIMENEZ Administration Heparin Sodium (Porcine) 5,000 unit 11/25/19 22:00 11/26/19 13:36 Heparin - SQ 5,000 unit TID JIMENEZ Administration Sodium Chloride 250 mls @ 3,000 mls/hr 11/26/19 14:00 Normal Saline - IV 11/27/19 13:59 PRN PRN Hypotension during Dialysis Sodium Chloride 250 mls @ 3,000 mls/hr 11/26/19 14:00 Normal Saline - IV PRN PRN Hypotension during Dialysis Labetalol HCl 300 mg 11/25/19 22:00 11/26/19 10:01 Normodyne - PO 300 mg BID JIMENEZ Administration Lamivudine 50 mg 11/26/19 10:00 11/26/19 10:02 Epivir Oral Solution - PO 50 mg DAILY JIMENEZ Administration Lidocaine/Aluminum/Magnesium/Simeth 5 ml 11/25/19 18:00 11/26/19 18:07 Magic Mouthwash *Sjr Formula* - MM 5 ml Q6HPO JIMENEZ Administration Losartan Potassium 100 mg 11/26/19 10:00 11/26/19 10:03 Cozaar - PO 100 mg DAILY JIMENEZ Administration Methylprednisolone Sodium Succinate 60 mg 11/25/19 15:00 11/26/19 18:06 Solu-Medrol - IVPUSH 60 mg Q6H-IV JIMENEZ Administration Nifedipine 90 mg 11/26/19 10:00 11/26/19 10:01 Procardia Xl - PO 90 mg DAILY JIMENEZ Administration Nystatin 500,000 units 11/25/19 18:00 11/26/19 18:07 Nystatin Oral Suspension - PO 500,000 units Q6HPO JIMENEZ Administration Sevelamer Carbonate 1,600 mg 11/25/19 17:30 11/26/19 18:07 Renvela - PO 1,600 mg TIDCM JIMENEZ Administration ASSESSMENT/PLAN: 88 year old female with PMH of HTN, COPD, CAD, CHF, asthma, and hypothyroidism, sent by her pcp for worsening sob. #SOB -likely 2/2 to acute on chronic D CHF -improvement in her symptoms today -cont lasix per cardio -echo unremarkable -duonebs -FU cardio reccs #HTN - metoprolol held for bradycardia - BP elevated here, improved with home meds, continue #COPD - nebs #Sinusitis - CT Head: Left sphenoid sinusitis - Fluticasone IN spray daily PRN for post nasal drip #hypothyroidism - cont home med #FEN -no iv fluids -monitor -sodium diet Visit type - Emergency Visit Emergency Visit: Yes ED Registration Date: 11/25/19 Care time: The patient presented to the Emergency Department on the above date and was hospitalized for further evaluation of their emergent condition. - New Patient This patient is new to me today: No - Critical Care Critical Care patient: No ATTENDING PHYSICIAN STATEMENT I saw and evaluated the patient. I reviewed the resident's note and discussed the case with the resident. I agree with the resident's findings and plan as documented. SUBJECTIVE: OBJECTIVE: ASSESSMENT AND PLAN:
[2019-11-26] MEDS ORDERED: PIPERACILLIN/TAZOB 2.25 GM 2.25 GM in DEXTROSE 5%-WATER - 50 ML IVPB SCH (19:00)
[2019-11-26] MEDS: FAMOTIDINE 20 MG TABLET PO SCH (22:42)
[2019-11-27] MEDS: methylPREDNISolone NA SUCC 40 MG/1 ML VIAL IVPUSH SCH ×4 (02:36→21:04)
[2019-11-27] MEDS: HEPARIN NA (PORCINE) 5,000 UNITS/ML 1ML VIAL SQ SCH ×3 (05:22→21:03)
[2019-11-27] MEDS: NYSTATIN 500,000 UNITS/5 ML SUSPENSION PO SCH ×4 (05:23→17:50)
[2019-11-27] MEDS: MAG HYDROX/ALH/SMC/DPHA/LIDO 240 ML MOUTHWASH MM SCH ×4 (05:23→17:50)
[2019-11-27 07:47] LABS: BASO % 0.1 % (0-2.0); HEMATOCRIT 39.5 % (35.4-49); LYMPH % 5.3 % (8-40); MCH 32.9 pg (25.7-33.7); MCHC 32.8 g/dl (32.0-35.9); MEAN CELL VOLUME 100.4 fl (80-96); MONO % 3.2 % (3.8-10.2); NEUT % 91.4 % (42.8-82.8); PLATELET COUNT 257 K/MM3 (134-434); RBC 3.93 M/mm3 (4.00-5.60); RDW 17.1 % (11.9-15.9)
[2019-11-27] MEDS: ALBUTEROL SO4 2.5/IPRATROPIUM 0.5 INH SOL 3 ML VIAL.NEB. NEB SCH ×4 (08:00→20:20)
[2019-11-27 08:38] LABS: ALBUMIN 2.8 g/dl (3.4-5.0); BILIRUBIN,TOTAL 0.7 mg/dL (0.2-1); BLOOD UREA NITROGEN 39.2 mg/dL (7-18); CALCIUM 9.6 mg/dL (8.5-10.1); TOT PROT 7.4 g/dl (6.4-8.2)
[2019-11-27] MEDS: SEVELAMER CARBONATE 800 MG TAB (FP) PO SCH ×3 (08:38→17:50)
[2019-11-27 09:03] LABS: CREATININE 7.7 mg/dL (0.55-1.3)
[2019-11-27] MEDS: ASPIRIN 81 MG CHEWABLE TABLETS PO SCH (09:30)
[2019-11-27] MEDS: NIFEdipine E.R. 90 MG TABLET PO SCH (09:30)
[2019-11-27] MEDS: LOSARTAN POTASSIUM 50 MG TABLET (FP) PO SCH (09:30)
[2019-11-27] MEDS: FLUCONAZOLE 100 MG TABLET (UD) PO SCH (09:30)
[2019-11-27] MEDS: LABETALOL HCL 100 MG TABLET (FP) PO SCH ×2 (09:30→21:04)
[2019-11-27] MEDS: DOLUTEGRAVIR SODIUM 50 MG TABLET (NON-FORMULARY) PO SCH (09:31)
[2019-11-27] MEDS: ABACAVIR SULFATE 300 MG TABLET PO SCH ×2 (09:31→21:05)
[2019-11-27] MEDS: CITALOPRAM HYDROBROMIDE 10 MG TABLET PO SCH (09:32)
[2019-11-27] MEDS: lamiVUDine 10 MG/1 ML BULK BOTTLE PO SCH (09:32)
[2019-11-27 11:30] LABS: ANISOCYTOSIS 1+; MACROCYTOSIS 0; PLATELET ESTIMATE NORMAL; TARGET CELLS 1+; TEAR DROP CELLS 1+
--- NOTE | 2019-11-27 11:49 | PN ---
Progress Note (short form) - Note Progress Note: PULMONARY VSS/AFEBRILE COMPLAINING OF PAINFUL SWALLOWING Constitutional: Yes: Mild Distress, Thin Eyes: Yes: Conjunctiva Clear, EOM Intact HENT: Yes: Atraumatic, Normocephalic No Thrush Neck: Yes: Supple, Trachea Midline, Other (NO STRIDOR ) Cardiovascular: Yes: Regular Rate and Rhythm Respiratory: Yes: Cough, Diminished, Rhonchi, SOB, SOB on Exertion, Tachypnea, Wheezes. No: Accessory Muscle Use, Rales, Stridor ...Inspection: Yes: WNL ...Clubbing: No Gastrointestinal: Yes: Normal Bowel Sounds, Soft Musculoskeletal: Yes: WNL Extremities: Yes: WNL Edema: No Peripheral Pulses WNL: Yes Integumentary: Yes: WNL Neurological: Yes: WNL, Alert, Oriented ...Motor Strength: WNL Psychiatric: Yes: WNL, Alert, Oriented Labs: reviewed Chest X-ray: Report Reviewed, Image Reviewed Cat Scan: Report Reviewed, Image Reviewed Problem List - Problems (1) COPD exacerbation Code(s): J44.1 - CHRONIC OBSTRUCTIVE PULMONARY DISEASE W (ACUTE) EXACERBATION (2) Anemia Code(s): D64.9 - ANEMIA, UNSPECIFIED Qualifiers: Anemia type: unspecified type Qualified Code(s): D64.9 - Anemia, unspecified (3) Anemia, chronic disease Code(s): D63.8 - ANEMIA IN OTHER CHRONIC DISEASES CLASSIFIED ELSEWHERE (4) CKD (chronic kidney disease) requiring chronic dialysis Code(s): N18.6 - END STAGE RENAL DISEASE; Z99.2 - DEPENDENCE ON RENAL DIALYSIS (5) End stage renal disease Code(s): N18.6 - END STAGE RENAL DISEASE (6) HIV (human immunodeficiency virus infection) Code(s): B20 - HUMAN IMMUNODEFICIENCY VIRUS [HIV] DISEASE (7) HTN (hypertension) Code(s): I10 - ESSENTIAL (PRIMARY) HYPERTENSION (8) Hyperlipidemia Code(s): E78.5 - HYPERLIPIDEMIA, UNSPECIFIED Qualifiers: (10) COPD exacerbation Code(s): J44.1 - CHRONIC OBSTRUCTIVE PULMONARY DISEASE W (ACUTE) EXACERBATION (11) Shortness of breath Code(s): R06.02 - SHORTNESS OF BREATH ABX per ID Medrol BD TX Standing and PRN Supplemental O2 as needed No smoking was counseled VTE prophylaxis Consider ENT evaluation for direct Laryngoscopic evaluation HD per Renal Will follow Marcelo HARRINGTON MD
[2019-11-27] MEDS: PANTOPRAZOLE 40 MG TABLET PO SCH (14:45)
[2019-11-27] MEDS ORDERED: PT OWN MED DRAWER 7, Y5N ONE ×3 (14:47→21:00)
--- NOTE | 2019-11-27 15:03 | PN ---
Physical Exam: SUBJECTIVE: Patient seen and examined. He says SOB is improving. OBJECTIVE: Vital Signs Period Temp Pulse Resp BP Sys/Montes Pulse Ox Last 24 Hr 97.8 F-98.2 F 8-94 18-20 94-146/55-94 99-99 GENERAL: The patient is awake, alert, and fully oriented. Becomes SOB with minimal exertion. LUNGS: Breath sounds equal, bilateral wheezes, no crackles, no accessory muscle use. HEART: Regular rate and rhythm, S1, S2 without murmur, rub or gallop. ABDOMEN: Soft, nontender, nondistended, normoactive bowel sounds, no guarding, no rebound, no hepatosplenomegaly, no masses. EXTREMITIES: 2+ pulses, warm, well-perfused, no edema. Laboratory Results - last 24 hr 11/27/19 11/27/19 06:26 06:26 WBC 12.0 H RBC 3.93 L Hgb 13.0 Hct 39.5 MCV 100.4 H MCH 32.9 MCHC 32.8 RDW 17.1 H Plt Count 257 MPV 9.0 Absolute Neuts (auto) 11.0 H Neutrophils % 91.4 H Neutrophils % (Manual) 90.8 H Band Neutrophils % 0.0 Lymphocytes % 5.3 L Lymphocytes % (Manual) 3.1 L D Monocytes % 3.2 L Monocytes % (Manual) 2 L D Eosinophils % 0.0 Eosinophils % (Manual) 0.0 Basophils % 0.1 Basophils % (Manual) 0.0 Myelocytes % (Man) 0 Promyelocytes % (Man) 0 Blast Cells % (Manual) 0 Nucleated RBC % 1 H Metamyelocytes 0 Hypochromia 0 Platelet Estimate Normal Platelet Comment Present Polychromasia 1+ Poikilocytosis 1+ Anisocytosis 1+ Microcytosis 0 Macrocytosis 0 Spherocytes 1+ Target Cells 1+ Tear Drop Cells 1+ Sodium 141 Potassium 4.0 Chloride 100 Carbon Dioxide 28 Anion Gap 13 BUN 39.2 H Creatinine 7.7 H* Est GFR (CKD-EPI)AfAm 7.62 Est GFR (CKD-EPI)NonAf 6.57 Random Glucose 145 H Calcium 9.6 Total Bilirubin 0.7 AST 12 L ALT 14 Alkaline Phosphatase 98 Total Protein 7.4 Albumin 2.8 L Active Medications Generic Name Dose Route Start Last Admin Trade Name Freq PRN Reason Stop Dose Admin Abacavir Sulfate 300 mg 11/25/19 22:00 11/27/19 09:31 Ziagen - PO 300 mg BID JIMENEZ Administration Acetaminophen 650 mg 11/25/19 19:40 11/26/19 06:34 Tylenol - PO 650 mg Q6H PRN Administration PAIN LEVEL 6-10 Albuterol Sulfate 1 amp 11/26/19 14:47 Ventolin 0.083% Nebulizer Soln - NEB Q4H PRN SHORT OF BREATH/WHEEZING Albuterol/Ipratropium 1 amp 11/26/19 16:00 11/27/19 11:44 Duoneb - NEB 1 amp RQID JIMENEZ Administration Aspirin 81 mg 11/26/19 10:00 11/27/19 09:30 Asa - PO 81 mg DAILY JIMENEZ Administration Benzocaine/Menthol 1 each 11/26/19 02:16 11/26/19 02:40 Cepacol Lozenge - MM 1 each PRN PRN Administration SORE THROAT Citalopram Hydrobromide 10 mg 11/26/19 10:00 11/27/19 09:32 Celexa - PO 10 mg DAILY JIMENEZ Administration Famotidine 20 mg 11/25/19 22:00 11/26/19 22:42 Pepcid - PO 20 mg HS JIMENEZ Administration Fluconazole 100 mg 11/26/19 10:00 11/27/19 09:30 Diflucan - PO 100 mg DAILY JIMENEZ Administration Heparin Sodium (Porcine) 5,000 unit 11/25/19 22:00 11/27/19 05:22 Heparin - SQ 5,000 unit TID JIMENEZ Administration Sodium Chloride 250 mls @ 3,000 mls/hr 11/26/19 14:00 Normal Saline - IV PRN PRN Hypotension during Dialysis Labetalol HCl 300 mg 11/25/19 22:00 11/27/19 09:30 Normodyne - PO 300 mg BID JIMENEZ Administration Lamivudine 50 mg 11/26/19 10:00 11/27/19 09:32 Epivir Oral Solution - PO 50 mg DAILY JIMENEZ Administration Lidocaine/Aluminum/Magnesium/Simeth 5 ml 11/25/19 18:00 11/27/19 11:49 Magic Mouthwash *Sjr Formula* - MM 5 ml Q6HPO JIMENEZ Administration Losartan Potassium 100 mg 11/26/19 10:00 02/08/20 09:30 Cozaar - PO 100 mg DAILY JIMENEZ Administration Methylprednisolone Sodium Succinate 40 mg 11/27/19 11:49 Solu-Medrol - IVPUSH Q6H-IV JIMENEZ Nifedipine 90 mg 11/26/19 10:00 11/27/19 09:30 Procardia Xl - PO 90 mg DAILY JIMENEZ Administration Nystatin 500,000 units 11/25/19 18:00 11/27/19 11:48 Nystatin Oral Suspension - PO 500,000 units Q6HPO JIMENEZ Administration Pantoprazole Sodium 40 mg 11/27/19 13:00 Protonix - PO DAILY JIMENEZ Sevelamer Carbonate 1,600 mg 11/25/19 17:30 11/27/19 11:48 Renvela - PO 1,600 mg TIDCM JIMENEZ Administration Simethicone 80 mg 11/27/19 14:00 Mylicon Liquid - PO QID JIMENEZ ASSESSMENT/PLAN: This is a 69 year old man with a history of HTN, hyperlipidemia, COPD, cardiac arrest, ESRD, HIV, throat cancer, depression, anxiety who presented to the ED with SOB. 1. Acute exacerbation of COPD - Improving - Continue SoluMedrol, DuoNeb 2. Dysphagia secondary to mucositis/pharyngitis, RT for throat cancer - Continue magic mouthwash, Diflucan, Nystatin 3. ESRD - Continue HD per nephrology - Continue Renvela 4. HTN - Continue Procardia XL, Labetalol, Cozaar 5. Hyperlipidemia 6. Depression with anxiety - Continue Celexa 7. HIV - Continue Epivir, Ziagen 8. History of cardiac arrest Visit type - Emergency Visit Emergency Visit: Yes ED Registration Date: 11/25/19 Care time: The patient presented to the Emergency Department on the above date and was hospitalized for further evaluation of their emergent condition. - New Patient This patient is new to me today: Yes Date on this admission: 11/27/19 - Critical Care Critical Care patient: No - Discharge Referral Referred to [facility] Med P.C.: No
[2019-11-27] MEDS: NICOTINE 21 MG/24 HOURS TOPICAL PATCH TD SCH (17:50)
[2019-11-27] MEDS: SIMETHICONE 40 MG/0.6 ML BOTTLE PO SCH ×3 (17:50→21:04)
--- NOTE | 2019-11-27 18:05 | PN ---
Progress Note, Physician History of Present Illness: Pt seen and examined at bedside. He is awake and alert. he is tolerating diet. - Current Medication List Current Medications: Active Medications Abacavir Sulfate (Ziagen -) 300 mg PO BID [facility] Last Admin: 11/27/19 09:31 Dose: 300 mg Acetaminophen (Tylenol -) 650 mg PO Q6H PRN PRN Reason: PAIN LEVEL 6-10 Last Admin: 11/26/19 06:34 Dose: 650 mg Albuterol Sulfate (Ventolin 0.083% Nebulizer Soln -) 1 amp NEB Q4H PRN PRN Reason: SHORT OF BREATH/WHEEZING Albuterol/Ipratropium (Duoneb -) 1 amp NEB RQID [facility] Last Admin: 11/27/19 16:07 Dose: 1 amp Aspirin (Asa -) 81 mg PO DAILY [facility] Last Admin: 11/27/19 09:30 Dose: 81 mg Benzocaine/Menthol (Cepacol Lozenge -) 1 each MM PRN PRN PRN Reason: SORE THROAT Last Admin: 11/26/19 02:40 Dose: 1 each Citalopram Hydrobromide (Celexa -) 10 mg PO DAILY [facility] Last Admin: 11/27/19 09:32 Dose: 10 mg Famotidine (Pepcid -) 20 mg PO HS [facility] Last Admin: 11/26/19 22:42 Dose: 20 mg Fluconazole (Diflucan -) 100 mg PO DAILY [facility] Last Admin: 11/27/19 09:30 Dose: 100 mg Heparin Sodium (Porcine) (Heparin -) 5,000 unit SQ TID [facility] Last Admin: 11/27/19 14:45 Dose: 5,000 unit Sodium Chloride (Normal Saline -) 250 mls @ 3,000 mls/hr IV PRN PRN PRN Reason: Hypotension during Dialysis Labetalol HCl (Normodyne -) 300 mg PO BID [facility] Last Admin: 11/27/19 09:30 Dose: 300 mg Lamivudine (Epivir Oral Solution -) 50 mg PO DAILY [facility] Last Admin: 11/27/19 09:32 Dose: 50 mg Lidocaine/Aluminum/Magnesium/Simeth (Magic Mouthwash *Sjr Formula* -) 5 ml MM Q6HPO [facility] Last Admin: 11/27/19 17:50 Dose: 5 ml Losartan Potassium (Cozaar -) 100 mg PO DAILY [facility] Last Admin: 11/27/19 09:30 Dose: 100 mg Methylprednisolone Sodium Succinate (Solu-Medrol -) 40 mg IVPUSH Q6H-IV [facility] Last Admin: 11/27/19 14:48 Dose: 40 mg Nicotine (Nicoderm Patch -) 21 mg TD DAILY [facility] Last Admin: 11/27/19 17:50 Dose: 21 mg Nifedipine (Procardia Xl -) 90 mg PO DAILY [facility] Last Admin: 11/27/19 09:30 Dose: 90 mg Nystatin (Nystatin Oral Suspension -) 500,000 units PO Q6HPO [facility] Last Admin: 11/27/19 17:50 Dose: 500,000 units Pantoprazole Sodium (Protonix -) 40 mg PO DAILY [facility] Last Admin: 11/27/19 14:45 Dose: 40 mg Sevelamer Carbonate (Renvela -) 1,600 mg PO TIDCM [facility] Last Admin: 11/27/19 17:50 Dose: 1,600 mg Simethicone (Mylicon Liquid -) 80 mg PO QID [facility] Last Admin: 11/27/19 17:50 Dose: Not Given - Objective Vital Signs: Vital Signs Temperature 98.6 F 11/27/19 16:10 Pulse Rate 85 11/27/19 16:10 Respiratory Rate 20 11/27/19 16:10 Blood Pressure 115/48 L 11/27/19 16:10 O2 Sat by Pulse Oximetry (%) 99 11/27/19 09:00 Constitutional: Yes: Calm Eyes: Yes: Conjunctiva Clear HENT: Yes: Atraumatic Neck: Yes: Supple Cardiovascular: Yes: S1, S2 Respiratory: Yes: CTA Bilaterally Gastrointestinal: Yes: Soft Genitourinary: Yes: WNL Musculoskeletal: Yes: WNL Edema: No Neurological: Yes: Oriented Psychiatric: Yes: Oriented Labs: CBC, BMP 11/27/19 06:26 11/27/19 06:26 Problem List - Problems (1) End stage renal disease Code(s): N18.6 - END STAGE RENAL DISEASE (2) HIV (human immunodeficiency virus infection) Code(s): B20 - HUMAN IMMUNODEFICIENCY VIRUS [HIV] DISEASE Assessment/Plan Current Medications Generic Name Dose Route Start Last Admin Trade Name Freq PRN Reason Stop Dose Admin Abacavir Sulfate 300 mg 11/25/19 22:00 11/27/19 09:31 Ziagen - PO 300 mg BID JIMENEZ Administration Acetaminophen 650 mg 11/25/19 19:40 11/26/19 06:34 Tylenol - PO 650 mg Q6H PRN Administration PAIN LEVEL 6-10 Albuterol Sulfate 1 amp 11/26/19 14:47 Ventolin 0.083% Nebulizer Soln - NEB Q4H PRN SHORT OF BREATH/WHEEZING Albuterol/Ipratropium 1 amp 11/26/19 16:00 11/27/19 16:07 Duoneb - NEB 1 amp RQID JIMENEZ Administration Aspirin 81 mg 11/26/19 10:00 11/27/19 09:30 Asa - PO 81 mg DAILY [facility]ENEZ Administration Benzocaine/Menthol 1 each 11/26/19 02:16 11/26/19 02:40 Cepacol Lozenge - MM 1 each PRN PRN Administration SORE THROAT Citalopram Hydrobromide 10 mg 11/26/19 10:00 11/27/19 09:32 Celexa - PO 10 mg DAILY JIMENEZ Administration Famotidine 20 mg 11/25/19 22:00 11/26/19 22:42 Pepcid - PO 20 mg HS JIMENEZ Administration Fluconazole 100 mg 11/26/19 10:00 11/27/19 09:30 Diflucan - PO 100 mg DAILY [facility]Z Administration Heparin Sodium (Porcine) 5,000 unit 11/25/19 22:00 11/27/19 14:45 Heparin - SQ 5,000 unit TID JIMENEZ Administration Sodium Chloride 250 mls @ 3,000 mls/hr 11/26/19 14:00 Normal Saline - IV PRN PRN Hypotension during Dialysis Labetalol HCl 300 mg 11/25/19 22:00 11/27/19 09:30 Normodyne - PO 300 mg BID JIMENEZ Administration Lamivudine 50 mg 11/26/19 10:00 11/27/19 09:32 Epivir Oral Solution - PO 50 mg DAILY [facility] Administration Lidocaine/Aluminum/Magnesium/Simeth 5 ml 11/25/19 18:00 11/27/19 17:50 Magic Mouthwash *Sjr Formula* - MM 5 ml Q6HPO JIMENEZ Administration Losartan Potassium 100 mg 11/26/19 10:00 11/27/19 09:30 Cozaar - PO 100 mg DAILY [facility] Administration Methylprednisolone Sodium Succinate 40 mg 11/27/19 11:49 11/27/19 14:48 Solu-Medrol - IVPUSH 40 mg Q6H-IV JIMENEZ Administration Nicotine 21 mg 11/27/19 15:45 11/27/19 17:50 Nicoderm Patch - TD 21 mg DAILY [facility] Administration Nifedipine 90 mg 11/26/19 10:00 11/27/19 09:30 Procardia Xl - PO 90 mg DAILY [facility] Administration Nystatin 500,000 units 11/25/19 18:00 11/27/19 17:50 Nystatin Oral Suspension - PO 500,000 units Q6HPO [facility]IMENEZ Administration Pantoprazole Sodium 40 mg 11/27/19 13:00 11/27/19 14:45 Protonix - PO 40 mg DAILY JIMENEZ Administration Sevelamer Carbonate 1,600 mg 11/25/19 17:30 11/27/19 17:50 Renvela - PO 1,600 mg TIDCM JIMENEZ Administration Simethicone 80 mg 11/27/19 14:00 11/27/19 17:50 Mylicon Liquid - PO Not Given QID JIMENEZ 1. Shortness of breath 2. ESRD on HD 3. anemia 4. Hypertension 5. Hx of Cardiac arrest 6. HIV Plan - pt tolerated HD yesterday - next HD on Friday - pt tolerating diet - monitor bp - renal diet
[2019-11-27] MEDS: FAMOTIDINE 20 MG TABLET PO SCH (21:05)
[2019-11-28] MEDS: MAG HYDROX/ALH/SMC/DPHA/LIDO 240 ML MOUTHWASH MM SCH ×4 (01:22→21:55)
[2019-11-28] MEDS: NYSTATIN 500,000 UNITS/5 ML SUSPENSION PO SCH ×4 (01:23→17:14)
[2019-11-28] MEDS: methylPREDNISolone NA SUCC 40 MG/1 ML VIAL IVPUSH SCH ×3 (02:10→17:14)
[2019-11-28] MEDS ORDERED: PT OWN MED DRAWER 7, Y5N ONE ×7 (05:11→22:09)
[2019-11-28] MEDS: HEPARIN NA (PORCINE) 5,000 UNITS/ML 1ML VIAL SQ SCH ×3 (05:48→22:14)
[2019-11-28] MEDS: ALBUTEROL SO4 2.5/IPRATROPIUM 0.5 INH SOL 3 ML VIAL.NEB. NEB SCH ×4 (07:50→20:10)
[2019-11-28] MEDS: SEVELAMER CARBONATE 800 MG TAB (FP) PO SCH ×3 (07:55→17:14)
[2019-11-28] MEDS: LABETALOL HCL 100 MG TABLET (FP) PO SCH ×2 (09:09→22:13)
[2019-11-28] MEDS: NICOTINE 21 MG/24 HOURS TOPICAL PATCH TD SCH (09:09)
[2019-11-28] MEDS: PANTOPRAZOLE 40 MG TABLET PO SCH (09:10)
[2019-11-28] MEDS: LOSARTAN POTASSIUM 50 MG TABLET (FP) PO SCH (09:10)
[2019-11-28] MEDS: FLUCONAZOLE 100 MG TABLET (UD) PO SCH (09:10)
[2019-11-28] MEDS: NIFEdipine E.R. 90 MG TABLET PO SCH (09:10)
[2019-11-28] MEDS: SIMETHICONE 40 MG/0.6 ML BOTTLE PO SCH ×3 (09:10→22:25)
[2019-11-28] MEDS: ASPIRIN 81 MG CHEWABLE TABLETS PO SCH (09:10)
[2019-11-28] MEDS: ABACAVIR SULFATE 300 MG TABLET PO SCH ×2 (09:11→22:14)
[2019-11-28] MEDS: lamiVUDine 10 MG/1 ML BULK BOTTLE PO SCH (09:18)
[2019-11-28] MEDS: CITALOPRAM HYDROBROMIDE 10 MG TABLET PO SCH (09:19)
[2019-11-28] MEDS: DOLUTEGRAVIR SODIUM 50 MG TABLET (NON-FORMULARY) PO SCH (09:19)
--- NOTE | 2019-11-28 11:34 | PN ---
Progress Note (short form) - Note Progress Note: PULMONARY VSS/AFEBRILE COMPLAINING OF PAINFUL SWALLOWING Constitutional: Yes: Mild Distress, Thin Eyes: Yes: Conjunctiva Clear, EOM Intact HENT: Yes: Atraumatic, Normocephalic No Thrush Neck: Yes: Supple, Trachea Midline, Other (NO STRIDOR ) Cardiovascular: Yes: Regular Rate and Rhythm Respiratory: Yes: Cough, Diminished, Rhonchi, SOB, SOB on Exertion, Tachypnea, Wheezes. No: Accessory Muscle Use, Rales, Stridor ...Inspection: Yes: WNL ...Clubbing: No Gastrointestinal: Yes: Normal Bowel Sounds, Soft Musculoskeletal: Yes: WNL Extremities: Yes: WNL Edema: No Peripheral Pulses WNL: Yes Integumentary: Yes: WNL Neurological: Yes: WNL, Alert, Oriented ...Motor Strength: WNL Psychiatric: Yes: WNL, Alert, Oriented Labs: reviewed Chest X-ray: Report Reviewed, Image Reviewed Cat Scan: Report Reviewed, Image Reviewed Problem List - Problems (1) COPD exacerbation Code(s): J44.1 - CHRONIC OBSTRUCTIVE PULMONARY DISEASE W (ACUTE) EXACERBATION (2) Anemia Code(s): D64.9 - ANEMIA, UNSPECIFIED Qualifiers: Anemia type: unspecified type Qualified Code(s): D64.9 - Anemia, unspecified (3) Anemia, chronic disease Code(s): D63.8 - ANEMIA IN OTHER CHRONIC DISEASES CLASSIFIED ELSEWHERE (4) CKD (chronic kidney disease) requiring chronic dialysis Code(s): N18.6 - END STAGE RENAL DISEASE; Z99.2 - DEPENDENCE ON RENAL DIALYSIS (5) End stage renal disease Code(s): N18.6 - END STAGE RENAL DISEASE (6) HIV (human immunodeficiency virus infection) Code(s): B20 - HUMAN IMMUNODEFICIENCY VIRUS [HIV] DISEASE (7) HTN (hypertension) Code(s): I10 - ESSENTIAL (PRIMARY) HYPERTENSION (8) Hyperlipidemia Code(s): E78.5 - HYPERLIPIDEMIA, UNSPECIFIED Qualifiers: (10) COPD exacerbation Code(s): J44.1 - CHRONIC OBSTRUCTIVE PULMONARY DISEASE W (ACUTE) EXACERBATION (11) Shortness of breath Code(s): R06.02 - SHORTNESS OF BREATH ABX per ID Medrol to taper BD TX Standing and PRN Supplemental O2 as needed No smoking was counseled VTE prophylaxis Consider ENT evaluation for direct Laryngoscopic evaluation HD per Renal Thyroid ultrasound Marcelo HARRINGTON MD
--- NOTE | 2019-11-28 11:35 | PN ---
Physical Exam: SUBJECTIVE: Patient seen and examined. He says his breathing is much better. He continues to complain of sore throat and difficulty swallowing. OBJECTIVE: Vital Signs Period Temp Pulse Resp BP Sys/Montes Pulse Ox Last 24 Hr 97.2 F-99.6 F 64-85 18-20 113-164/48-78 94-94 GENERAL: The patient is awake, alert, fully oriented, and in no acute distress. LUNGS: Breath sounds equal, few wheezes, no crackles, no accessory muscle use. HEART: Regular rate and rhythm, S1, S2 without murmur, rub or gallop. ABDOMEN: Soft, nontender, nondistended, normoactive bowel sounds, no guarding, no rebound, no hepatosplenomegaly, no masses. EXTREMITIES: 2+ pulses, warm, well-perfused, no edema. Laboratory Results - last 24 hr 11/27/19 06:26 Neutrophils % (Manual) 90.8 H Band Neutrophils % 0.0 Lymphocytes % (Manual) 3.1 L D Monocytes % (Manual) 2 L D Eosinophils % (Manual) 0.0 Basophils % (Manual) 0.0 Myelocytes % (Man) 0 Promyelocytes % (Man) 0 Blast Cells % (Manual) 0 Nucleated RBC % 1 H Metamyelocytes 0 Hypochromia 0 Platelet Estimate Normal Platelet Comment Present Polychromasia 1+ Poikilocytosis 1+ Anisocytosis 1+ Microcytosis 0 Macrocytosis 0 Spherocytes 1+ Target Cells 1+ Tear Drop Cells 1+ Active Medications Generic Name Dose Route Start Last Admin Trade Name Freq PRN Reason Stop Dose Admin Abacavir Sulfate 300 mg 11/25/19 22:00 11/28/19 09:11 Ziagen - PO 300 mg BID JIMENEZ Administration Acetaminophen 650 mg 11/25/19 19:40 11/26/19 06:34 Tylenol - PO 650 mg Q6H PRN Administration PAIN LEVEL 6-10 Albuterol Sulfate 1 amp 11/26/19 14:47 11/28/19 00:30 Ventolin 0.083% Nebulizer Soln - NEB 1 amp Q4H PRN Administration SHORT OF BREATH/WHEEZING Albuterol/Ipratropium 1 amp 11/26/19 16:00 11/28/19 07:50 Duoneb - NEB 1 amp RQID JIMENEZ Administration Aspirin 81 mg 11/26/19 10:00 11/28/19 09:10 Asa - PO 81 mg DAILY JIMENEZ Administration Benzocaine/Menthol 1 each 11/26/19 02:16 11/26/19 02:40 Cepacol Lozenge - MM 1 each PRN PRN Administration SORE THROAT Citalopram Hydrobromide 10 mg 11/26/19 10:00 11/28/19 09:19 Celexa - PO 10 mg DAILY [facility]IM[facility]Z Administration Famotidine 20 mg 11/25/19 22:00 11/27/19 21:05 Pepcid - PO 20 mg HS JIMENEZ Administration Fluconazole 100 mg 11/26/19 10:00 11/28/19 09:10 Diflucan - PO 100 mg DAILY [facility] Administration Heparin Sodium (Porcine) 5,000 unit 11/25/19 22:00 11/28/19 05:48 Heparin - SQ 5,000 unit TID JIMENEZ Administration Sodium Chloride 250 mls @ 3,000 mls/hr 11/26/19 14:00 Normal Saline - IV PRN PRN Hypotension during Dialysis Labetalol HCl 300 mg 11/25/19 22:00 11/28/19 09:09 Normodyne - PO 300 mg BID [facility]IMENEZ Administration Lamivudine 50 mg 11/26/19 10:00 11/28/19 09:18 Epivir Oral Solution - PO 50 mg DAILY [facility] Administration Lidocaine/Aluminum/Magnesium/Simeth 5 ml 11/25/19 18:00 11/28/19 06:18 Magic Mouthwash *Sjr Formula* - MM 5 ml Q6HPO JIMENEZ Administration Losartan Potassium 100 mg 11/26/19 10:00 11/28/19 09:10 Cozaar - PO 100 mg DAILY [facility]Z Administration Methylprednisolone Sodium Succinate 40 mg 11/27/19 11:49 11/28/19 09:09 Solu-Medrol - IVPUSH 40 mg Q6H-IV JIMENEZ Administration Nicotine 21 mg 11/27/19 15:45 11/28/19 09:09 Nicoderm Patch - TD 21 mg DAILY [facility] Administration Nifedipine 90 mg 11/26/19 10:00 11/28/19 09:10 Procardia Xl - PO 90 mg DAILY [facility] Administration Nystatin 500,000 units 11/25/19 18:00 11/28/19 05:48 Nystatin Oral Suspension - PO 500,000 units Q6HPO JIMENEZ Administration Pantoprazole Sodium 40 mg 11/27/19 13:00 11/28/19 09:10 Protonix - PO 40 mg DAILY [facility]Z Administration Sevelamer Carbonate 1,600 mg 11/25/19 17:30 11/28/19 07:55 Renvela - PO 1,600 mg TIDCM JIMENEZ Administration Simethicone 80 mg 11/27/19 14:00 11/28/19 09:10 Mylicon Liquid - PO 80 mg QID JIMENEZ Administration ASSESSMENT/PLAN: This is a 69 year old man with a history of HTN, hyperlipidemia, COPD, cardiac arrest, ESRD, HIV, throat cancer, depression, anxiety who presented to the ED with SOB. 1. Acute exacerbation of COPD - Improving - Continue SoluMedrol, DuoNeb 2. Dysphagia secondary to mucositis/pharyngitis, RT for throat cancer - Continue magic mouthwash, Diflucan, Nystatin - CT of neck shows multiple hypodense thyroid nodules - will need US - Consider UGI series, ENT evaluation 3. ESRD - Continue HD per nephrology - Continue Renvela 4. HTN - Continue Procardia XL, Labetalol, Cozaar 5. Hyperlipidemia 6. Depression with anxiety - Continue Celexa 7. HIV - Continue Epivir, Ziagen 8. History of cardiac arrest 9. Nicotine dependence - Smoking cessation discussed - Nicotine patch started Visit type - Emergency Visit Emergency Visit: Yes ED Registration Date: 11/25/19 Care time: The patient presented to the Emergency Department on the above date and was hospitalized for further evaluation of their emergent condition. - New Patient This patient is new to me today: No - Critical Care Critical Care patient: No - Discharge Referral Referred to [facility] Med P.C.: No
--- NOTE | 2019-11-28 19:42 | PN ---
Progress Note, Physician History of Present Illness: Pt seen and examined at bedside. He is awake and alert. He denies shortness of breath. - Current Medication List Current Medications: Active Medications Abacavir Sulfate (Ziagen -) 300 mg PO BID [facility] Last Admin: 11/28/19 09:11 Dose: 300 mg Acetaminophen (Tylenol -) 650 mg PO Q6H PRN PRN Reason: PAIN LEVEL 6-10 Last Admin: 11/26/19 06:34 Dose: 650 mg Albuterol Sulfate (Ventolin 0.083% Nebulizer Soln -) 1 amp NEB Q4H PRN PRN Reason: SHORT OF BREATH/WHEEZING Last Admin: 11/28/19 00:30 Dose: 1 amp Albuterol/Ipratropium (Duoneb -) 1 amp NEB RQID [facility] Last Admin: 11/28/19 16:19 Dose: 1 amp Aspirin (Asa -) 81 mg PO DAILY [facility] Last Admin: 11/28/19 09:10 Dose: 81 mg Benzocaine/Menthol (Cepacol Lozenge -) 1 each MM PRN PRN PRN Reason: SORE THROAT Last Admin: 11/26/19 02:40 Dose: 1 each Citalopram Hydrobromide (Celexa -) 10 mg PO DAILY [facility] Last Admin: 11/28/19 09:19 Dose: 10 mg Famotidine (Pepcid -) 20 mg PO HS [facility] Last Admin: 11/27/19 21:05 Dose: 20 mg Fluconazole (Diflucan -) 100 mg PO DAILY [facility] Last Admin: 11/28/19 09:10 Dose: 100 mg Heparin Sodium (Porcine) (Heparin -) 5,000 unit SQ TID [facility] Last Admin: 11/28/19 13:10 Dose: 5,000 unit Sodium Chloride (Normal Saline -) 250 mls @ 3,000 mls/hr IV PRN PRN PRN Reason: Hypotension during Dialysis Labetalol HCl (Normodyne -) 300 mg PO BID [facility] Last Admin: 11/28/19 09:09 Dose: 300 mg Lamivudine (Epivir Oral Solution -) 50 mg PO DAILY [facility] Last Admin: 11/28/19 09:18 Dose: 50 mg Lidocaine/Aluminum/Magnesium/Simeth (Magic Mouthwash *Sjr Formula* -) 5 ml MM Q6HPO [facility] Last Admin: 11/28/19 12:55 Dose: 5 ml Losartan Potassium (Cozaar -) 100 mg PO DAILY [facility] Last Admin: 11/28/19 09:10 Dose: 100 mg Methylprednisolone Sodium Succinate (Solu-Medrol -) 40 mg IVPUSH Q8H-IV [facility] Last Admin: 11/28/19 17:14 Dose: 40 mg Nicotine (Nicoderm Patch -) 21 mg TD DAILY [facility] Last Admin: 11/28/19 09:09 Dose: 21 mg Nifedipine (Procardia Xl -) 90 mg PO DAILY [facility] Last Admin: 11/28/19 09:10 Dose: 90 mg Nystatin (Nystatin Oral Suspension -) 500,000 units PO Q6HPO [facility] Last Admin: 11/28/19 17:14 Dose: 500,000 units Pantoprazole Sodium (Protonix -) 40 mg PO DAILY [facility] Last Admin: 11/28/19 09:10 Dose: 40 mg Sevelamer Carbonate (Renvela -) 1,600 mg PO TIDCM [facility] Last Admin: 11/28/19 17:14 Dose: 1,600 mg Simethicone (Mylicon Liquid -) 80 mg PO QID [facility] Last Admin: 11/28/19 13:10 Dose: 80 mg - Objective Vital Signs: Vital Signs Temperature 97.3 F L 11/28/19 18:00 Pulse Rate 79 11/28/19 18:00 Respiratory Rate 20 11/28/19 18:00 Blood Pressure 103/60 11/28/19 18:00 O2 Sat by Pulse Oximetry (%) 94 L 11/28/19 09:00 Constitutional: Yes: Calm Eyes: Yes: Conjunctiva Clear HENT: Yes: Atraumatic Neck: Yes: Supple Cardiovascular: Yes: S1, S2 Respiratory: Yes: Rhonchi Gastrointestinal: Yes: Soft Genitourinary: Yes: WNL Musculoskeletal: Yes: WNL Edema: No Neurological: Yes: Oriented Psychiatric: Yes: Oriented Labs: CBC, BMP 11/27/19 06:26 11/27/19 06:26 Problem List - Problems (1) End stage renal disease Code(s): N18.6 - END STAGE RENAL DISEASE (2) HIV (human immunodeficiency virus infection) Code(s): B20 - HUMAN IMMUNODEFICIENCY VIRUS [HIV] DISEASE Assessment/Plan Current Medications Generic Name Dose Route Start Last Admin Trade Name Freq PRN Reason Stop Dose Admin Abacavir Sulfate 300 mg 11/25/19 22:00 11/28/19 09:11 Ziagen - PO 300 mg BID JIMENEZ Administration Acetaminophen 650 mg 11/25/19 19:40 11/26/19 06:34 Tylenol - PO 650 mg Q6H PRN Administration PAIN LEVEL 6-10 Albuterol Sulfate 1 amp 11/26/19 14:47 11/28/19 00:30 Ventolin 0.083% Nebulizer Soln - NEB 1 amp Q4H PRN Administration SHORT OF BREATH/WHEEZING Albuterol/Ipratropium 1 amp 11/26/19 16:00 11/28/19 16:19 Duoneb - NEB 1 amp RQID JIMENEZ Administration Aspirin 81 mg 11/26/19 10:00 11/28/19 09:10 Asa - PO 81 mg DAILY JIMENEZ Administration Benzocaine/Menthol 1 each 11/26/19 02:16 11/26/19 02:40 Cepacol Lozenge - MM 1 each PRN PRN Administration SORE THROAT Citalopram Hydrobromide 10 mg 11/26/19 10:00 11/28/19 09:19 Celexa - PO 10 mg DAILY JIMENEZ Administration Famotidine 20 mg 11/25/19 22:00 11/27/19 21:05 Pepcid - PO 20 mg HS JIMENEZ Administration Fluconazole 100 mg 11/26/19 10:00 11/28/19 09:10 Diflucan - PO 100 mg DAILY JIMENEZ Administration Heparin Sodium (Porcine) 5,000 unit 11/25/19 22:00 11/28/19 13:10 Heparin - SQ 5,000 unit TID JIMENEZ Administration Sodium Chloride 250 mls @ 3,000 mls/hr 11/26/19 14:00 Normal Saline - IV PRN PRN Hypotension during Dialysis Labetalol HCl 300 mg 11/25/19 22:00 11/28/19 09:09 Normodyne - PO 300 mg BID JIMENEZ Administration Lamivudine 50 mg 11/26/19 10:00 11/28/19 09:18 Epivir Oral Solution - PO 50 mg DAILY JIMENEZ Administration Lidocaine/Aluminum/Magnesium/Simeth 5 ml 11/25/19 18:00 11/28/19 12:55 Magic Mouthwash *Sjr Formula* - MM 5 ml Q6HPO JIMENEZ Administration Losartan Potassium 100 mg 11/26/19 10:00 11/28/19 09:10 Cozaar - PO 100 mg DAILY JIMENEZ Administration Methylprednisolone Sodium Succinate 40 mg 11/28/19 18:00 11/28/19 17:14 Solu-Medrol - IVPUSH 40 mg Q8H-IV JIMENEZ Administration Nicotine 21 mg 11/27/19 15:45 11/28/19 09:09 Nicoderm Patch - TD 21 mg DAILY JIMENEZ Administration Nifedipine 90 mg 11/26/19 10:00 11/28/19 09:10 Procardia Xl - PO 90 mg DAILY JIMENEZ Administration Nystatin 500,000 units 11/25/19 18:00 11/28/19 17:14 Nystatin Oral Suspension - PO 500,000 units Q6HPO JIMENEZ Administration Pantoprazole Sodium 40 mg 11/27/19 13:00 11/28/19 09:10 Protonix - PO 40 mg DAILY JIMENEZ Administration Sevelamer Carbonate 1,600 mg 11/25/19 17:30 11/28/19 17:14 Renvela - PO 1,600 mg TIDCM JIMENEZ Administration Simethicone 80 mg 11/27/19 14:00 11/28/19 13:10 Mylicon Liquid - PO 80 mg QID JIMENEZ Administration 1. Shortness of breath 2. ESRD on HD 3. anemia 4. Hypertension 5. Hx of Cardiac arrest 6. HIV Plan - HD tomorrow - pt tolerating diet - hd orders written - monitor bp, has been labile
[2019-11-28] MEDS ORDERED: SODIUM CHLORIDE 250 ML IV PRN (19:44)
[2019-11-28] MEDS: FAMOTIDINE 20 MG TABLET PO SCH (22:13)
[2019-11-28] MEDS: SIMETHICONE 80 MG TAB.CHEW (FP) PO SCH (22:26)
[2019-11-29] MEDS: methylPREDNISolone NA SUCC 40 MG/1 ML VIAL IVPUSH SCH ×3 (01:36→17:45)
[2019-11-29] MEDS: NYSTATIN 500,000 UNITS/5 ML SUSPENSION PO SCH ×5 (06:16→23:12)
[2019-11-29] MEDS: MAG HYDROX/ALH/SMC/DPHA/LIDO 240 ML MOUTHWASH MM SCH ×5 (06:16→23:12)
[2019-11-29] MEDS: HEPARIN NA (PORCINE) 5,000 UNITS/ML 1ML VIAL SQ SCH ×3 (06:22→22:23)
[2019-11-29] MEDS: HEPARIN NA (PORCINE) 5,000 UNITS/ML 1ML VIAL IVPUSH SCH ×3 (07:10→09:10)
[2019-11-29 07:58] LABS: BASO % 0.1 % (0-2.0); HEMATOCRIT 35.1 % (35.4-49); HEMOGLOBIN 11.6 GM/dL (11.7-16.9); LYMPH % 3.4 % (8-40); MEAN CELL VOLUME 100.1 fl (80-96); MONO % 2.5 % (3.8-10.2); PLATELET COUNT 207 K/MM3 (134-434); RBC 3.51 M/mm3 (4.00-5.60); RDW 17.1 % (11.9-15.9); WHITE BLOOD COUNT 9.5 K/mm3 (4.0-10.0)
[2019-11-29] MEDS ORDERED: SODIUM CHLORIDE 250 ML IV PRN (08:00)
[2019-11-29] MEDS: ALBUTEROL SO4 2.5/IPRATROPIUM 0.5 INH SOL 3 ML VIAL.NEB. NEB SCH ×4 (08:20→20:39)
[2019-11-29 08:32] LABS: CALCIUM 9.3 mg/dL (8.5-10.1); POTASSIUM 5.1 mmol/L (3.5-5.1)
[2019-11-29] MEDS ORDERED: PT OWN MED DRAWER 7, Y5N ONE ×3 (08:37→20:27)
[2019-11-29 08:50] LABS: BLOOD UREA NITROGEN 112.6 mg/dL (7-18); CREATININE 12.2 mg/dL (0.55-1.3)
--- NOTE | 2019-11-29 08:58 | PN ---
Progress Note, Physician History of Present Illness: Patient continue to have dysphagia with liquids and solids. Continue with throat pain with mild relief from Magic Mouthwash. State shaving one episode of melena this morning. Denies nausea, vomiting, abdominal pain. - Current Medication List Current Medications: Active Medications Abacavir Sulfate (Ziagen -) 300 mg PO BID [facility] Last Admin: 11/28/19 22:14 Dose: 300 mg Acetaminophen (Tylenol -) 650 mg PO Q6H PRN PRN Reason: PAIN LEVEL 6-10 Last Admin: 11/26/19 06:34 Dose: 650 mg Albuterol Sulfate (Ventolin 0.083% Nebulizer Soln -) 1 amp NEB Q4H PRN PRN Reason: SHORT OF BREATH/WHEEZING Last Admin: 11/28/19 00:30 Dose: 1 amp Albuterol/Ipratropium (Duoneb -) 1 amp NEB RQID [facility] Last Admin: 11/29/19 08:20 Dose: 1 amp Aspirin (Asa -) 81 mg PO DAILY [facility] Last Admin: 11/28/19 09:10 Dose: 81 mg Benzocaine/Menthol (Cepacol Lozenge -) 1 each MM PRN PRN PRN Reason: SORE THROAT Last Admin: 11/26/19 02:40 Dose: 1 each Citalopram Hydrobromide (Celexa -) 10 mg PO DAILY [facility] Last Admin: 11/28/19 09:19 Dose: 10 mg Famotidine (Pepcid -) 20 mg PO HS [facility] Last Admin: 11/28/19 22:13 Dose: 20 mg Fluconazole (Diflucan -) 100 mg PO DAILY [facility] Last Admin: 11/28/19 09:10 Dose: 100 mg Heparin Sodium (Porcine) (Heparin -) 5,000 unit SQ TID [facility] Last Admin: 11/29/19 06:22 Dose: 5,000 unit Heparin Sodium (Porcine) (Heparin -) 300 unit IVPUSH Q1H [facility] Stop: 11/29/19 10:01 Last Admin: 11/29/19 08:10 Dose: 300 unit Sodium Chloride (Normal Saline -) 250 mls @ 3,000 mls/hr IV PRN PRN PRN Reason: Hypotension during Dialysis Sodium Chloride (Normal Saline -) 250 mls @ 3,000 mls/hr IV PRN PRN PRN Reason: Hypotension during Dialysis Stop: 11/30/19 07:59 Labetalol HCl (Normodyne -) 300 mg PO BID [facility] Last Admin: 11/28/19 22:13 Dose: 300 mg Lamivudine (Epivir Oral Solution -) 50 mg PO DAILY [facility] Last Admin: 11/28/19 09:18 Dose: 50 mg Lidocaine/Aluminum/Magnesium/Simeth (Magic Mouthwash *Sjr Formula* -) 5 ml MM Q6HPO [facility] Last Admin: 11/29/19 06:16 Dose: 5 ml Losartan Potassium (Cozaar -) 100 mg PO DAILY [facility] Last Admin: 11/28/19 09:10 Dose: 100 mg Methylprednisolone Sodium Succinate (Solu-Medrol -) 40 mg IVPUSH Q8H-IV [facility] Last Admin: 11/29/19 01:36 Dose: 40 mg Nicotine (Nicoderm Patch -) 21 mg TD DAILY [facility] Last Admin: 11/28/19 09:09 Dose: 21 mg Nifedipine (Procardia Xl -) 90 mg PO DAILY [facility] Last Admin: 11/28/19 09:10 Dose: 90 mg Nystatin (Nystatin Oral Suspension -) 500,000 units PO Q6HPO [facility] Last Admin: 11/29/19 06:16 Dose: 500,000 units Pantoprazole Sodium (Protonix -) 40 mg PO DAILY [facility] Last Admin: 11/28/19 09:10 Dose: 40 mg Sevelamer Carbonate (Renvela -) 1,600 mg PO TIDCM [facility] Last Admin: 11/28/19 17:14 Dose: 1,600 mg Simethicone (Mylicon -) 80 mg PO QID [facility] Last Admin: 11/28/19 22:26 Dose: Not Given - Objective Vital Signs: Vital Signs Temperature 98.5 F 11/29/19 07:05 Pulse Rate 87 11/29/19 08:40 Respiratory Rate 18 11/29/19 08:40 Blood Pressure 122/71 11/29/19 08:40 O2 Sat by Pulse Oximetry (%) 94 L 11/28/19 09:00 Constitutional: Yes: No Distress, Calm Eyes: Yes: Conjunctiva Clear HENT: Yes: Atraumatic Cardiovascular: Yes: Regular Rate and Rhythm Respiratory: Yes: Regular, Rhonchi Gastrointestinal: Yes: Normal Bowel Sounds, Soft Neurological: Yes: Alert, Oriented Psychiatric: Yes: Alert, Oriented Labs: CBC, BMP 11/29/19 06:45 11/29/19 06:45 Problem List - Problems (1) Throat pain Assessment/Plan: >R/o secondary to radiation vs pharnygitis >Barium Swallow >Swallow eval with HARMONIC ANALYST >Pantoprazole Code(s): R07.0 - PAIN IN THROAT (2) Melena Assessment/Plan: >Stool Guaiac >Hg 11.5 Code(s): K92.1 - MELENA
[2019-11-29] MEDS: SEVELAMER CARBONATE 800 MG TAB (FP) PO SCH ×3 (09:21→17:45)
[2019-11-29 10:30] LABS: MACROCYTOSIS 1+; PLATELET ESTIMATE NORMAL; TARGET CELLS 1+; TEAR DROP CELLS 1+
[2019-11-29] MEDS: ASPIRIN 81 MG CHEWABLE TABLETS PO SCH (11:42)
[2019-11-29] MEDS: FLUCONAZOLE 100 MG TABLET (UD) PO SCH (11:43)
[2019-11-29] MEDS: CITALOPRAM HYDROBROMIDE 10 MG TABLET PO SCH (11:43)
[2019-11-29] MEDS: LOSARTAN POTASSIUM 50 MG TABLET (FP) PO SCH (11:43)
[2019-11-29] MEDS: lamiVUDine 10 MG/1 ML BULK BOTTLE PO SCH (11:43)
[2019-11-29] MEDS: NIFEdipine E.R. 90 MG TABLET PO SCH (11:44)
[2019-11-29] MEDS: SIMETHICONE 80 MG TAB.CHEW (FP) PO SCH ×4 (11:44→22:23)
[2019-11-29] MEDS: PANTOPRAZOLE 40 MG TABLET PO SCH (11:44)
[2019-11-29] MEDS: NICOTINE 21 MG/24 HOURS TOPICAL PATCH TD SCH (11:44)
[2019-11-29] MEDS: LABETALOL HCL 100 MG TABLET (FP) PO SCH ×2 (11:44→22:22)
[2019-11-29] MEDS: DOLUTEGRAVIR SODIUM 50 MG TABLET (NON-FORMULARY) PO SCH (11:45)
[2019-11-29] MEDS: ABACAVIR SULFATE 300 MG TABLET PO SCH ×2 (11:45→22:23)
[2019-11-29] MEDS: ACETAMINOPHEN 325 MG TABLET (FP) PO PRN (11:46)
--- NOTE | 2019-11-29 11:46 | PN ---
Progress Note, Physician History of Present Illness: PULMONARY awake ,less congested on nasal cannula,mildly dyspneic,on HD,+ difficulty swallowing - Current Medication List Current Medications: Active Medications Abacavir Sulfate (Ziagen -) 300 mg PO BID [facility] Last Admin: 11/28/19 22:14 Dose: 300 mg Acetaminophen (Tylenol -) 650 mg PO Q6H PRN PRN Reason: PAIN LEVEL 6-10 Last Admin: 11/26/19 06:34 Dose: 650 mg Albuterol Sulfate (Ventolin 0.083% Nebulizer Soln -) 1 amp NEB Q4H PRN PRN Reason: SHORT OF BREATH/WHEEZING Last Admin: 11/28/19 00:30 Dose: 1 amp Albuterol/Ipratropium (Duoneb -) 1 amp NEB RQID [facility] Last Admin: 11/29/19 08:20 Dose: 1 amp Aspirin (Asa -) 81 mg PO DAILY [facility] Last Admin: 11/28/19 09:10 Dose: 81 mg Benzocaine/Menthol (Cepacol Lozenge -) 1 each MM PRN PRN PRN Reason: SORE THROAT Last Admin: 11/26/19 02:40 Dose: 1 each Citalopram Hydrobromide (Celexa -) 10 mg PO DAILY [facility] Last Admin: 11/28/19 09:19 Dose: 10 mg Famotidine (Pepcid -) 20 mg PO HS [facility] Last Admin: 11/28/19 22:13 Dose: 20 mg Fluconazole (Diflucan -) 100 mg PO DAILY [facility] Last Admin: 11/28/19 09:10 Dose: 100 mg Heparin Sodium (Porcine) (Heparin -) 5,000 unit SQ TID [facility] Last Admin: 11/29/19 06:22 Dose: 5,000 unit Sodium Chloride (Normal Saline -) 250 mls @ 3,000 mls/hr IV PRN PRN PRN Reason: Hypotension during Dialysis Sodium Chloride (Normal Saline -) 250 mls @ 3,000 mls/hr IV PRN PRN PRN Reason: Hypotension during Dialysis Stop: 11/30/19 07:59 Labetalol HCl (Normodyne -) 300 mg PO BID [facility] Last Admin: 11/28/19 22:13 Dose: 300 mg Lamivudine (Epivir Oral Solution -) 50 mg PO DAILY [facility] Last Admin: 11/28/19 09:18 Dose: 50 mg Lidocaine/Aluminum/Magnesium/Simeth (Magic Mouthwash *Sjr Formula* -) 5 ml MM Q6HPO [facility] Last Admin: 11/29/19 06:16 Dose: 5 ml Losartan Potassium (Cozaar -) 100 mg PO DAILY [facility] Last Admin: 11/28/19 09:10 Dose: 100 mg Methylprednisolone Sodium Succinate (Solu-Medrol -) 40 mg IVPUSH Q8H-IV [facility] Last Admin: 11/29/19 01:36 Dose: 40 mg Nicotine (Nicoderm Patch -) 21 mg TD DAILY [facility] Last Admin: 11/28/19 09:09 Dose: 21 mg Nifedipine (Procardia Xl -) 90 mg PO DAILY [facility] Last Admin: 11/28/19 09:10 Dose: 90 mg Nystatin (Nystatin Oral Suspension -) 500,000 units PO Q6HPO [facility] Last Admin: 11/29/19 06:16 Dose: 500,000 units Pantoprazole Sodium (Protonix -) 40 mg PO DAILY [facility] Last Admin: 11/28/19 09:10 Dose: 40 mg Sevelamer Carbonate (Renvela -) 1,600 mg PO TIDCM [facility] Last Admin: 11/29/19 09:21 Dose: 1,600 mg Simethicone (Mylicon -) 80 mg PO QID [facility] Last Admin: 11/28/19 22:26 Dose: Not Given - Objective Vital Signs: Vital Signs Temperature 98.5 F 11/29/19 07:05 Pulse Rate 84 11/29/19 10:45 Respiratory Rate 18 11/29/19 10:45 Blood Pressure 140/68 11/29/19 10:45 O2 Sat by Pulse Oximetry (%) 94 L 11/28/19 09:00 Constitutional: Yes: Calm, Thin Eyes: Yes: WNL HENT: Yes: WNL Neck: Yes: WNL Cardiovascular: Yes: Regular Rate and Rhythm, S1, S2 Respiratory: Yes: Rhonchi (SCATTERED MELISA RHONCHI) Gastrointestinal: Yes: Normal Bowel Sounds, Soft Extremities: Yes: WNL Edema: No Labs: CBC, BMP 11/29/19 06:45 Assessment/Plan Problem List - Problems (1) COPD exacerbation Code(s): J44.1 - CHRONIC OBSTRUCTIVE PULMONARY DISEASE W (ACUTE) EXACERBATION (2) Anemia Code(s): D64.9 - ANEMIA, UNSPECIFIED Qualifiers: Anemia type: unspecified type Qualified Code(s): D64.9 - Anemia, unspecified (3) Anemia, chronic disease Code(s): D63.8 - ANEMIA IN OTHER CHRONIC DISEASES CLASSIFIED ELSEWHERE (4) CKD (chronic kidney disease) requiring chronic dialysis Code(s): N18.6 - END STAGE RENAL DISEASE; Z99.2 - DEPENDENCE ON RENAL DIALYSIS (5) End stage renal disease Code(s): N18.6 - END STAGE RENAL DISEASE (6) HIV (human immunodeficiency virus infection) Code(s): B20 - HUMAN IMMUNODEFICIENCY VIRUS [HIV] DISEASE (7) HTN (hypertension) Code(s): I10 - ESSENTIAL (PRIMARY) HYPERTENSION (8) Hyperlipidemia Code(s): E78.5 - HYPERLIPIDEMIA, UNSPECIFIED Qualifiers: (10) COPD exacerbation Code(s): J44.1 - CHRONIC OBSTRUCTIVE PULMONARY DISEASE W (ACUTE) EXACERBATION (11) Shortness of breath Code(s): R06.02 - SHORTNESS OF BREATH Medrol same dose BD TX Standing and PRN Supplemental O2 as needed No smoking was counseled VTE prophylaxis ENT evaluation for direct Laryngoscopic evaluation HD per Renal Thyroid ultrasound DR MARK
[2019-11-29 12:15] LABS: BLOOD UREA NITROGEN 29.1 mg/dL (7-18); CREATININE 4.5 mg/dL (0.55-1.3)
[2019-11-29] MEDS ORDERED: LIDOCAINE 2.5%/PRILOCAINE 2.5% (5 Gram/TUBE) TP PRN (12:25)
--- NOTE | 2019-11-29 12:42 | PN ---
Progress Note (short form) - Note Progress Note: Renal follow up for ERSD on HD Seen and examined at the bedside awake and alert continues have fullness in his throat and congestion s/p HD this AM with 2.5L UF has some heartburn no chest pain, sob, fever or chills Vital Signs Temperature 98.5 F 11/29/19 07:05 Pulse Rate 84 11/29/19 10:45 Respiratory Rate 18 11/29/19 10:45 Blood Pressure 140/68 11/29/19 10:45 O2 Sat by Pulse Oximetry (%) 94 L 11/28/19 09:00 Intake & Output 11/26/19 11/27/19 11/28/19 11/29/19 23:59 23:59 23:59 23:59 Intake Total 1490 1160 980 740 Output Total 2500 3000 Balance -1010 1160 980 -2260 Weight 71.214 kg 69.4 kg 72.303 kg 69.944 kg NAD awake and alert neck supple RRR Dec BS bilateral lung allred, no wheeze soft NT/ND no LE edema CBC, BMP 11/29/19 06:45 11/29/19 10:40 Current Medications Abacavir Sulfate (Ziagen -) 300 mg PO BID [facility] Last Admin: 11/29/19 11:45 Dose: 300 mg Acetaminophen (Tylenol -) 650 mg PO Q6H PRN PRN Reason: PAIN LEVEL 6-10 Last Admin: 11/29/19 11:46 Dose: 650 mg Albuterol Sulfate (Ventolin 0.083% Nebulizer Soln -) 1 amp NEB Q4H PRN PRN Reason: SHORT OF BREATH/WHEEZING Last Admin: 11/28/19 00:30 Dose: 1 amp Albuterol/Ipratropium (Duoneb -) 1 amp NEB RQID [facility] Last Admin: 11/29/19 08:20 Dose: 1 amp Aspirin (Asa -) 81 mg PO DAILY [facility] Last Admin: 11/29/19 11:42 Dose: 81 mg Benzocaine/Menthol (Cepacol Lozenge -) 1 each MM PRN PRN PRN Reason: SORE THROAT Last Admin: 11/26/19 02:40 Dose: 1 each Citalopram Hydrobromide (Celexa -) 10 mg PO DAILY [facility] Last Admin: 11/29/19 11:43 Dose: 10 mg Famotidine (Pepcid -) 20 mg PO HS [facility] Last Admin: 11/28/19 22:13 Dose: 20 mg Fluconazole (Diflucan -) 100 mg PO DAILY [facility] Last Admin: 11/29/19 11:43 Dose: 100 mg Heparin Sodium (Porcine) (Heparin -) 5,000 unit SQ TID [facility] Last Admin: 11/29/19 06:22 Dose: 5,000 unit Sodium Chloride (Normal Saline -) 250 mls @ 3,000 mls/hr IV PRN PRN PRN Reason: Hypotension during Dialysis Sodium Chloride (Normal Saline -) 250 mls @ 3,000 mls/hr IV PRN PRN PRN Reason: Hypotension during Dialysis Stop: 11/30/19 07:59 Labetalol HCl (Normodyne -) 300 mg PO BID [facility] Last Admin: 11/29/19 11:44 Dose: 300 mg Lamivudine (Epivir Oral Solution -) 50 mg PO DAILY [facility] Last Admin: 11/29/19 11:43 Dose: 50 mg Lidocaine/Aluminum/Magnesium/Simeth (Magic Mouthwash *Sjr Formula* -) 5 ml MM Q6HPO [facility] Last Admin: 11/29/19 12:30 Dose: 5 ml Lidocaine/Prilocaine (Emla -) 1 applic TP PRN PRN PRN Reason: PAIN LEVEL 1 - 3 Losartan Potassium (Cozaar -) 100 mg PO DAILY [facility] Last Admin: 11/29/19 11:43 Dose: 100 mg Methylprednisolone Sodium Succinate (Solu-Medrol -) 40 mg IVPUSH Q8H-IV [facility] Last Admin: 11/29/19 11:44 Dose: 40 mg Nicotine (Nicoderm Patch -) 21 mg TD DAILY [facility] Last Admin: 11/29/19 11:44 Dose: 21 mg Nifedipine (Procardia Xl -) 90 mg PO DAILY [facility] Last Admin: 11/29/19 11:44 Dose: 90 mg Nystatin (Nystatin Oral Suspension -) 500,000 units PO Q6HPO [facility] Last Admin: 11/29/19 12:30 Dose: 500,000 units Pantoprazole Sodium (Protonix -) 40 mg PO DAILY [facility] Last Admin: 11/29/19 11:44 Dose: 40 mg Sevelamer Carbonate (Renvela -) 1,600 mg PO TIDCM [facility] Last Admin: 11/29/19 12:30 Dose: 1,600 mg Simethicone (Mylicon -) 80 mg PO QID [facility] Last Admin: 11/29/19 11:44 Dose: 80 mg 69 year old male with pmhx of esrd, hiv, copd, and cardiac arrest who presents to the ER with shortness of breath. 1. ESRD on HD 2. Shortness of breath 3. Throat pain/fullness 4. COPD 5. HIV 6. Anemia in CKD 7. Renal Osteodystrophy s/p HD this am with 2.5L UF Continue IV steroids and Nebs as per pulmonary CT chest and neck noted, ordered thyroid US Continue Losartan and Nifedpine if COPD symptoms do not improve can consider discontinuing beta pia Consider ENT consult for throat pain/discomfort next dialysis planned for Friday Trey Pereyra DO
--- NOTE | 2019-11-29 13:49 | PN ---
Progress Note, ASSISTANT SITE MANAGER - Note Progress Note: 69 yo male seen at bedside for follow up to swallow eval with recommendations for NPO. Pt seen during lunch with regular soft diet diet with thin liquids consuming meal independently. Pt continues to demonstrate aspiration-like behaviors with every bite of food or drink. Coughing, aphonic voice, SOB generally observed after every swallow. ASSISTANT SITE MANAGER counseled pt regarding possible MBS (which pt refused 11/26/2019). Pt agreed to participate but for now still wants to continue eating and drinking. Recommendations: Consider MBS to determine bolus aspiration vs. secretion management aspiration. Pt still wants to eat by mouth. At last eval ASSISTANT SITE MANAGER mentioned downgrading his solids to pureed with thicken liquids (pt refused). Consider alternative method for providing medication and hydration until MBS can be performed. ASSISTANT SITE MANAGER tried to contact PCP for approval of MBS.. Observe standard aspiration precautions. Results given verbally to dry pan charger and to PCP via chart.
--- NOTE | 2019-11-29 13:58 | PN ---
Physical Exam: SUBJECTIVE: Patient seen and examined. He continues to complain of difficulty swallowing. OBJECTIVE: Vital Signs Period Temp Pulse Resp BP Sys/Montes Pulse Ox Last 24 Hr 97.3 F-98.7 F 65-88 18-20 103-164/56-78 GENERAL: The patient is awake, alert, fully oriented, and in no acute distress. LUNGS: Breath sounds equal, few wheezes, no crackles, no accessory muscle use. HEART: Regular rate and rhythm, S1, S2 without murmur, rub or gallop. ABDOMEN: Soft, nontender, nondistended, normoactive bowel sounds, no guarding, no rebound, no hepatosplenomegaly, no masses. EXTREMITIES: 2+ pulses, warm, well-perfused, no edema. Laboratory Results - last 24 hr 11/29/19 11/29/19 11/29/19 06:45 06:45 10:40 WBC 9.5 RBC 3.51 L Hgb 11.6 L Hct 35.1 L MCV 100.1 H MCH 33.0 MCHC 33.0 RDW 17.1 H Plt Count 207 MPV 9.0 Absolute Neuts (auto) 8.9 H Neutrophils % 94.0 H Neutrophils % (Manual) 95.9 H Band Neutrophils % 0.0 Lymphocytes % 3.4 L D Lymphocytes % (Manual) 2.1 L D Monocytes % 2.5 L Monocytes % (Manual) 2 L Eosinophils % 0.0 Eosinophils % (Manual) 0.0 Basophils % 0.1 Basophils % (Manual) 0.0 Myelocytes % (Man) 0 Promyelocytes % (Man) 0 Blast Cells % (Manual) 0 Nucleated RBC % 0 Metamyelocytes 0 Platelet Estimate Normal Poikilocytosis 2+ Microcytosis 1+ Macrocytosis 1+ Target Cells 1+ Tear Drop Cells 1+ Schistocytes 1+ Sodium 133 L Potassium 5.1 Chloride 93 L Carbon Dioxide 22 Anion Gap 18 H BUN 112.6 H* 29.1 H Creatinine 12.2 H* 4.5 H Est GFR (CKD-EPI)AfAm 4.37 14.58 Est GFR (CKD-EPI)NonAf 3.77 12.58 Random Glucose 106 Calcium 9.3 Active Medications Generic Name Dose Route Start Last Admin Trade Name Freq PRN Reason Stop Dose Admin Abacavir Sulfate 300 mg 11/25/19 22:00 11/29/19 11:45 Ziagen - PO 300 mg BID [facility] Administration Acetaminophen 650 mg 11/25/19 19:40 11/29/19 11:46 Tylenol - PO 650 mg Q6H PRN Administration PAIN LEVEL 6-10 Albuterol Sulfate 1 amp 11/26/19 14:47 11/28/19 00:30 Ventolin 0.083% Nebulizer Soln - NEB 1 amp Q4H PRN Administration SHORT OF BREATH/WHEEZING Albuterol/Ipratropium 1 amp 11/26/19 16:00 11/29/19 08:20 Duoneb - NEB 1 amp RQID [facility] Administration Aspirin 81 mg 11/26/19 10:00 11/29/19 11:42 Asa - PO 81 mg DAILY [facility] Administration Benzocaine/Menthol 1 each 11/26/19 02:16 11/26/19 02:40 Cepacol Lozenge - MM 1 each PRN PRN Administration SORE THROAT Citalopram Hydrobromide 10 mg 11/26/19 10:00 11/29/19 11:43 Celexa - PO 10 mg DAILY [facility] Administration Famotidine 20 mg 11/25/19 22:00 11/28/19 22:13 Pepcid - PO 20 mg HS [facility] Administration Fluconazole 100 mg 11/26/19 10:00 11/29/19 11:43 Diflucan - PO 100 mg DAILY [facility] Administration Heparin Sodium (Porcine) 5,000 unit 11/25/19 22:00 11/29/19 13:50 Heparin - SQ Not Given TID [facility] Sodium Chloride 250 mls @ 3,000 mls/hr 11/26/19 14:00 Normal Saline - IV PRN PRN Hypotension during Dialysis Sodium Chloride 250 mls @ 3,000 mls/hr 11/29/19 08:00 Normal Saline - IV 11/30/19 07:59 PRN PRN Hypotension during Dialysis Labetalol HCl 300 mg 11/25/19 22:00 11/29/19 11:44 Normodyne - PO 300 mg BID [facility] Administration Lamivudine 50 mg 11/26/19 10:00 11/29/19 11:43 Epivir Oral Solution - PO 50 mg DAILY [facility] Administration Lidocaine/Aluminum/Magnesium/Simeth 5 ml 11/25/19 18:00 11/29/19 12:30 Magic Mouthwash *Sjr Formula* - MM 5 ml Q6HPO [facility] Administration Lidocaine/Prilocaine 1 applic 11/29/19 12:25 Emla - TP PRN PRN PAIN LEVEL 1 - 3 Losartan Potassium 100 mg 11/26/19 10:00 11/29/19 11:43 Cozaar - PO 100 mg DAILY [facility] Administration Methylprednisolone Sodium Succinate 40 mg 11/28/19 18:00 11/29/19 11:44 Solu-Medrol - IVPUSH 40 mg Q8H-IV [facility] Administration Nicotine 21 mg 11/27/19 15:45 11/29/19 11:44 Nicoderm Patch - TD 21 mg DAILY [facility] Administration Nifedipine 90 mg 11/26/19 10:00 11/29/19 11:44 Procardia Xl - PO 90 mg DAILY [facility] Administration Nystatin 500,000 units 11/25/19 18:00 11/29/19 12:30 Nystatin Oral Suspension - PO 500,000 units Q6HPO [facility] Administration Pantoprazole Sodium 40 mg 11/27/19 13:00 11/29/19 11:44 Protonix - PO 40 mg DAILY [facility] Administration Sevelamer Carbonate 1,600 mg 11/25/19 17:30 11/29/19 12:30 Renvela - PO 1,600 mg TIDCM [facility] Administration Simethicone 80 mg 11/28/19 22:15 11/29/19 11:44 Mylicon - PO 80 mg QID [facility] Administration ASSESSMENT/PLAN: This is a 69 year old man with a history of HTN, hyperlipidemia, COPD, cardiac arrest, ESRD, HIV, throat cancer, depression, anxiety who presented to the ED with SOB. 1. Acute exacerbation of COPD - Improving - Continue SoluMedrol, DuoNeb 2. Dysphagia secondary to mucositis/pharyngitis, RT for throat cancer - Continue magic mouthwash, Diflucan, Nystatin - CT of neck shows multiple hypodense thyroid nodules - will need US as outpatient - Swallow eval done - recommends NPO and modified barium swallow 3. ESRD - Continue HD per nephrology - Continue Renvela 4. HTN - Continue Procardia XL, Labetalol, Cozaar 5. Hyperlipidemia 6. Depression with anxiety - Continue Celexa 7. HIV - Continue Epivir, Ziagen 8. History of cardiac arrest 9. Nicotine dependence - Smoking cessation discussed - Continue nicotine patch Visit type - Emergency Visit Emergency Visit: Yes ED Registration Date: 11/25/19 Care time: The patient presented to the Emergency Department on the above date and was hospitalized for further evaluation of their emergent condition. - New Patient This patient is new to me today: No - Critical Care Critical Care patient: No - Discharge Referral Referred to [facility] No
[2019-11-29] MEDS: FAMOTIDINE 20 MG TABLET PO SCH (22:23)
[2019-11-30] MEDS: methylPREDNISolone NA SUCC 40 MG/1 ML VIAL IVPUSH SCH ×3 (02:10→18:03)
[2019-11-30] MEDS: HEPARIN NA (PORCINE) 5,000 UNITS/ML 1ML VIAL SQ SCH ×3 (06:25→21:26)
[2019-11-30] MEDS: MAG HYDROX/ALH/SMC/DPHA/LIDO 240 ML MOUTHWASH MM SCH ×3 (06:25→18:03)
[2019-11-30] MEDS: NYSTATIN 500,000 UNITS/5 ML SUSPENSION PO SCH ×3 (06:27→18:03)
[2019-11-30 06:52] LABS: HEMATOCRIT 37.7 % (35.4-49); HEMOGLOBIN 12.4 GM/dL (11.7-16.9); MCH 33.4 pg (25.7-33.7); MCHC 32.8 g/dl (32.0-35.9); MEAN CELL VOLUME 101.8 fl (80-96); MEAN PLT VOLUME 8.9 fl (7.5-11.1); PLATELET COUNT 203 K/MM3 (134-434); RDW 16.8 % (11.9-15.9); WHITE BLOOD COUNT 10.9 K/mm3 (4.0-10.0)
[2019-11-30 07:55] LABS: BLOOD UREA NITROGEN 69.1 mg/dL (7-18); CALCIUM 9.2 mg/dL (8.5-10.1); POTASSIUM 4.3 mmol/L (3.5-5.1)
[2019-11-30 08:04] LABS: CREATININE 8.6 mg/dL (0.55-1.3)
[2019-11-30] MEDS: ALBUTEROL SO4 2.5/IPRATROPIUM 0.5 INH SOL 3 ML VIAL.NEB. NEB SCH ×4 (08:45→21:38)
[2019-11-30] MEDS ORDERED: PT OWN MED DRAWER 7, Y5N ONE ×2 (09:34→21:15)
[2019-11-30] MEDS: SEVELAMER CARBONATE 800 MG TAB (FP) PO SCH ×3 (09:37→18:04)
[2019-11-30] MEDS: ASPIRIN 81 MG CHEWABLE TABLETS PO SCH (09:38)
[2019-11-30] MEDS: FLUCONAZOLE 100 MG TABLET (UD) PO SCH (09:38)
[2019-11-30] MEDS: PANTOPRAZOLE 40 MG TABLET PO SCH (09:38)
[2019-11-30] MEDS: LABETALOL HCL 100 MG TABLET (FP) PO SCH ×2 (09:38→21:26)
[2019-11-30] MEDS: SIMETHICONE 80 MG TAB.CHEW (FP) PO SCH ×4 (09:39→21:26)
[2019-11-30] MEDS: NIFEdipine E.R. 90 MG TABLET PO SCH (09:39)
[2019-11-30] MEDS: LOSARTAN POTASSIUM 50 MG TABLET (FP) PO SCH (09:39)
[2019-11-30] MEDS: NICOTINE 21 MG/24 HOURS TOPICAL PATCH TD SCH (09:39)
[2019-11-30] MEDS: CITALOPRAM HYDROBROMIDE 10 MG TABLET PO SCH (09:40)
[2019-11-30] MEDS: ABACAVIR SULFATE 300 MG TABLET PO SCH ×2 (09:40→21:27)
[2019-11-30] MEDS: DOLUTEGRAVIR SODIUM 50 MG TABLET (NON-FORMULARY) PO SCH (09:40)
[2019-11-30] MEDS: lamiVUDine 10 MG/1 ML BULK BOTTLE PO SCH (09:41)
--- NOTE | 2019-11-30 11:22 | PN ---
Progress Note, Physician History of Present Illness: PULMONARY AWAKE,+ SOB,+ C/O SORE THROAT,DIFFICULTY SWALLOWING,+ COUGH - Current Medication List Current Medications: Active Medications Abacavir Sulfate (Ziagen -) 300 mg PO BID [facility] Last Admin: 11/30/19 09:40 Dose: 300 mg Acetaminophen (Tylenol -) 650 mg PO Q6H PRN PRN Reason: PAIN LEVEL 6-10 Last Admin: 11/29/19 11:46 Dose: 650 mg Albuterol Sulfate (Ventolin 0.083% Nebulizer Soln -) 1 amp NEB Q4H PRN PRN Reason: SHORT OF BREATH/WHEEZING Last Admin: 11/28/19 00:30 Dose: 1 amp Albuterol/Ipratropium (Duoneb -) 1 amp NEB RQID [facility] Last Admin: 11/29/19 20:39 Dose: 1 amp Aspirin (Asa -) 81 mg PO DAILY [facility] Last Admin: 11/30/19 09:38 Dose: 81 mg Benzocaine/Menthol (Cepacol Lozenge -) 1 each MM PRN PRN PRN Reason: SORE THROAT Last Admin: 11/26/19 02:40 Dose: 1 each Citalopram Hydrobromide (Celexa -) 10 mg PO DAILY [facility] Last Admin: 11/30/19 09:40 Dose: 10 mg Famotidine (Pepcid -) 20 mg PO HS [facility] Last Admin: 11/29/19 22:23 Dose: 20 mg Fluconazole (Diflucan -) 100 mg PO DAILY [facility] Last Admin: 11/30/19 09:38 Dose: 100 mg Heparin Sodium (Porcine) (Heparin -) 5,000 unit SQ TID [facility] Last Admin: 11/30/19 06:25 Dose: 5,000 unit Sodium Chloride (Normal Saline -) 250 mls @ 3,000 mls/hr IV PRN PRN PRN Reason: Hypotension during Dialysis Labetalol HCl (Normodyne -) 300 mg PO BID [facility] Last Admin: 11/30/19 09:38 Dose: 300 mg Lamivudine (Epivir Oral Solution -) 50 mg PO DAILY [facility] Last Admin: 11/30/19 09:41 Dose: 50 mg Lidocaine/Aluminum/Magnesium/Simeth (Magic Mouthwash *Sjr Formula* -) 5 ml MM Q6HPO [facility] Last Admin: 11/30/19 06:25 Dose: 5 ml Lidocaine/Prilocaine (Emla -) 1 applic TP PRN PRN PRN Reason: PAIN LEVEL 1 - 3 Losartan Potassium (Cozaar -) 100 mg PO DAILY [facility] Last Admin: 11/30/19 09:39 Dose: 100 mg Methylprednisolone Sodium Succinate (Solu-Medrol -) 40 mg IVPUSH Q8H-IV [facility] Last Admin: 11/30/19 10:50 Dose: 40 mg Nicotine (Nicoderm Patch -) 21 mg TD DAILY [facility] Last Admin: 11/30/19 09:39 Dose: 21 mg Nifedipine (Procardia Xl -) 90 mg PO DAILY [facility] Last Admin: 11/30/19 09:39 Dose: 90 mg Nystatin (Nystatin Oral Suspension -) 500,000 units PO Q6HPO [facility] Last Admin: 11/30/19 06:27 Dose: 500,000 units Pantoprazole Sodium (Protonix -) 40 mg PO DAILY [facility] Last Admin: 11/30/19 09:38 Dose: 40 mg Sevelamer Carbonate (Renvela -) 1,600 mg PO TIDCM [facility] Last Admin: 11/30/19 09:37 Dose: 1,600 mg Simethicone (Mylicon -) 80 mg PO QID [facility] Last Admin: 11/30/19 09:39 Dose: 80 mg - Objective Vital Signs: Vital Signs Temperature 97.8 F 11/30/19 09:05 Pulse Rate 70 11/30/19 09:05 Respiratory Rate 20 11/30/19 09:05 Blood Pressure 162/79 11/30/19 09:05 O2 Sat by Pulse Oximetry (%) 96 11/30/19 08:43 Constitutional: Yes: Well Nourished, Anxious, Mild Distress Eyes: Yes: WNL HENT: Yes: WNL Neck: Yes: WNL Cardiovascular: Yes: Regular Rate and Rhythm, S1, S2 Respiratory: Yes: Rhonchi (SCATTERED MELISA RHONCHI) Gastrointestinal: Yes: Normal Bowel Sounds, Soft Extremities: Yes: WNL Edema: Yes Labs: CBC, BMP 11/30/19 05:50 11/30/19 05:50 Assessment/Plan Problem List - Problems (1) COPD exacerbation Code(s): J44.1 - CHRONIC OBSTRUCTIVE PULMONARY DISEASE W (ACUTE) EXACERBATION (2) Anemia Code(s): D64.9 - ANEMIA, UNSPECIFIED Qualifiers: Anemia type: unspecified type Qualified Code(s): D64.9 - Anemia, unspecified (3) Anemia, chronic disease Code(s): D63.8 - ANEMIA IN OTHER CHRONIC DISEASES CLASSIFIED ELSEWHERE (4) CKD (chronic kidney disease) requiring chronic dialysis Code(s): N18.6 - END STAGE RENAL DISEASE; Z99.2 - DEPENDENCE ON RENAL DIALYSIS (5) End stage renal disease Code(s): N18.6 - END STAGE RENAL DISEASE (6) HIV (human immunodeficiency virus infection) Code(s): B20 - HUMAN IMMUNODEFICIENCY VIRUS [HIV] DISEASE (7) HTN (hypertension) Code(s): I10 - ESSENTIAL (PRIMARY) HYPERTENSION (8) Hyperlipidemia Code(s): E78.5 - HYPERLIPIDEMIA, UNSPECIFIED Qualifiers: (10) COPD exacerbation Code(s): J44.1 - CHRONIC OBSTRUCTIVE PULMONARY DISEASE W (ACUTE) EXACERBATION (11) Shortness of breath Code(s): R06.02 - SHORTNESS OF BREATH Medrol same dose BD TX Standing and PRN Supplemental O2 as needed No smoking was counseled VTE prophylaxis ENT evaluation HD per Renal ASPIRATION PRECAUTIONS DR MARK
--- NOTE | 2019-11-30 13:01 | PN ---
Teaching Attending Note Name of Resident: Bravo Quinonez ATTENDING PHYSICIAN STATEMENT I saw and evaluated the patient. I reviewed the resident's note and discussed the case with the resident. I agree with the resident's findings and plan as documented. SUBJECTIVE: Patient complaining of difficulty swallowing. OBJECTIVE: Vital Signs Period Temp Pulse Resp BP Sys/Montes Pulse Ox Last 24 Hr 97.6 F-98.1 F 70-88 20-22 130-162/57-80 94-96 GENERAL: The patient is awake, alert, fully oriented, and in no acute distress. Voice hoarse. LUNGS: Breath sounds equal, few wheezes, no crackles, no accessory muscle use. HEART: Regular rate and rhythm, S1, S2 without murmur, rub or gallop. ABDOMEN: Soft, nontender, nondistended, normoactive bowel sounds, no guarding, no rebound, no hepatosplenomegaly, no masses. EXTREMITIES: 2+ pulses, warm, well-perfused, no edema. Laboratory Results - last 24 hr 11/30/19 11/30/19 05:50 05:50 WBC 10.9 H RBC 3.70 L Hgb 12.4 Hct 37.7 MCV 101.8 H MCH 33.4 MCHC 32.8 RDW 16.8 H Plt Count 203 MPV 8.9 Sodium 141 Potassium 4.3 Chloride 102 Carbon Dioxide 28 Anion Gap 12 BUN 69.1 H Creatinine 8.6 H* Est GFR (CKD-EPI)AfAm 6.66 Est GFR (CKD-EPI)NonAf 5.75 Random Glucose 113 H Calcium 9.2 Current Medications Generic Name Dose Route Start Last Admin Trade Name Freq PRN Reason Stop Dose Admin Abacavir Sulfate 300 mg 11/25/19 22:00 11/30/19 09:40 Ziagen - PO 300 mg BID JIMENEZ Administration Acetaminophen 650 mg 11/25/19 19:40 11/29/19 11:46 Tylenol - PO 650 mg Q6H PRN Administration PAIN LEVEL 6-10 Albuterol Sulfate 1 amp 11/26/19 14:47 11/28/19 00:30 Ventolin 0.083% Nebulizer Soln - NEB 1 amp Q4H PRN Administration SHORT OF BREATH/WHEEZING Albuterol/Ipratropium 1 amp 11/26/19 16:00 11/30/19 12:29 Duoneb - NEB Not Given RQID JIMENEZ Aspirin 81 mg 11/26/19 10:00 11/30/19 09:38 Asa - PO 81 mg DAILY J[facility] Administration Benzocaine/Menthol 1 each 11/26/19 02:16 11/26/19 02:40 Cepacol Lozenge - MM 1 each PRN PRN Administration SORE THROAT Citalopram Hydrobromide 10 mg 11/26/19 10:00 11/30/19 09:40 Celexa - PO 10 mg DAILY [facility] Administration Famotidine 20 mg 11/25/19 22:00 11/29/19 22:23 Pepcid - PO 20 mg HS JIMENEZ Administration Fluconazole 100 mg 11/26/19 10:00 11/30/19 09:38 Diflucan - PO 100 mg DAILY [facility] Administration Heparin Sodium (Porcine) 5,000 unit 11/25/19 22:00 11/30/19 06:25 Heparin - SQ 5,000 unit TID [facility]IM[facility]Z Administration Sodium Chloride 250 mls @ 3,000 mls/hr 11/26/19 14:00 Normal Saline - IV PRN PRN Hypotension during Dialysis Labetalol HCl 300 mg 11/25/19 22:00 11/30/19 09:38 Normodyne - PO 300 mg BID [facility] Administration Lamivudine 50 mg 11/26/19 10:00 11/30/19 09:41 Epivir Oral Solution - PO 50 mg DAILY [facility] Administration Lidocaine/Aluminum/Magnesium/Simeth 5 ml 11/25/19 18:00 11/30/19 06:25 Magic Mouthwash *Sjr Formula* - MM 5 ml Q6HPO [facility] Administration Lidocaine/Prilocaine 1 applic 11/29/19 12:25 Emla - TP PRN PRN PAIN LEVEL 1 - 3 Losartan Potassium 100 mg 11/26/19 10:00 11/30/19 09:39 Cozaar - PO 100 mg DAILY [facility] Administration Methylprednisolone Sodium Succinate 40 mg 11/28/19 18:00 11/30/19 10:50 Solu-Medrol - IVPUSH 40 mg Q8H-IV [facility] Administration Nicotine 21 mg 11/27/19 15:45 11/30/19 09:39 Nicoderm Patch - TD 21 mg DAILY [facility] Administration Nifedipine 90 mg 11/26/19 10:00 11/30/19 09:39 Procardia Xl - PO 90 mg DAILY [facility] Administration Nystatin 500,000 units 11/25/19 18:00 11/30/19 06:27 Nystatin Oral Suspension - PO 500,000 units Q6HPO [facility] Administration Pantoprazole Sodium 40 mg 11/27/19 13:00 11/30/19 09:38 Protonix - PO 40 mg DAILY [facility] Administration Sevelamer Carbonate 1,600 mg 11/25/19 17:30 11/30/19 09:37 Renvela - PO 1,600 mg TIDCM [facility] Administration Simethicone 80 mg 11/28/19 22:15 11/30/19 09:39 Mylicon - PO 80 mg QID [facility]IM[facility] Administration ASSESSMENT AND PLAN: This is a 69 year old man with a history of HTN, hyperlipidemia, COPD, cardiac arrest, ESRD, HIV, throat cancer, depression, anxiety who presented to the ED with SOB. 1. Acute exacerbation of COPD - Improving - Continue SoluMedrol, DuoNeb 2. Dysphagia secondary to mucositis/pharyngitis, RT for throat cancer - Continue magic mouthwash, Diflucan, Nystatin - CT of neck shows multiple hypodense thyroid nodules - will need US as outpatient - Modified barium swallow shows high risk of aspiration for both solids and liquids - NPO - ENT evaluation - Consider PPN, NGT, PEG depending on ENT findings 3. ESRD - Continue HD per nephrology - Continue Renvela 4. HTN - Continue Procardia XL, Labetalol, Cozaar 5. Hyperlipidemia 6. Depression with anxiety - Continue Celexa 7. HIV - Continue Epivir, Ziagen 8. History of cardiac arrest 9. Nicotine dependence - Smoking cessation discussed - Continue nicotine patch
[2019-11-30] MEDS ORDERED: SODIUM CHLORIDE 250 ML IV PRN (13:17)
--- NOTE | 2019-11-30 18:21 | CON.ENT ---
Consult Consult Specialty:: ENT Reason for Consultation:: Dysphagia, poor voice, h/o laryngeal cancer - History of Present Illness Chief Complaint: dysphagia, poor voice History of Present Illness: Patient known to me from the office. 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 He completed therapeutic RT completed . He has been [facility] since then and had last seen me 5 mo ago. He had a throat infection at that time and improved on abx. He had a regular ba esophagram, that showed free flow into the esophagus at the time. He had neck CT on this admission that showed only marginally enlarged thyroid nodule. He had mod ba swallow that showed overt aspiration. - History Source History Provided By: Patient, Medical Record Limitations to Obtaining History: No Limitations - Past Medical History Cardio/Vascular: Yes: HTN, Hyperlipdemia Pulmonary: Yes: Bronchitis, COPD, Pneumonia. 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 History of Recent Travel: No Home Medications - Allergies Allergies/Adverse Reactions: Allergies Allergy/AdvReac Type Severity Reaction Status Date / Time No Known Drug Allergies Allergy Verified 11/02/19 12:27 - Home Medications Home Medications: Ambulatory Orders Abacavir Sulfate [Abacavir] 600 mg PO DAILY 11/26/19 Albuterol Sulfate Inhaler - [Ventolin HFA Inhaler -] 2 puff IH Q6H 11/26/19 Aspirin [ASA -] 81 mg PO DAILY 11/26/19 Citalopram Hydrobromide [Celexa -] 10 mg PO DAILY 11/26/19 Dolutegravir Sodium [Tivicay] 50 mg PO DAILY 11/26/19 Labetalol HCl 400 mg PO BID 11/26/19 Lamivudine [Epivir Hbv] 50 mg PO DAILY 11/26/19 Latanoprost 0.005% Eye Drops [Xalatan 0.005% Eye Drops -] 1 drop OU HS 11/26/19 Lidocaine/Prilocaine Cream [Emla -] 1 applic TP UTDICT 11/26/19 Ranitidine HCl 300 mg PO DAILY 11/26/19 Sevelamer Carbonate 1,600 mg PO TID 11/26/19 Sucroferric Oxyhydroxide [Velphoro] 500 mg PO TID 11/26/19 Umeclidinium Brm/Vilanterol Tr [Anoro Ellipta 62.5-25 Mcg INH] 1 each IH DAILY 11/26/19 Physical Exam-ENT Vital Signs: Vital Signs Temperature 98.1 F 11/30/19 14:00 Pulse Rate 81 11/30/19 14:00 Respiratory Rate 11/30/19 09:05 Blood Pressure 125/67 11/30/19 14:00 O2 Sat by Pulse Oximetry (%) 96 11/30/19 08:43 Constitutional: Yes: Well Nourished, No Distress Head: Yes: WNL, Atraumatic Eyes: Yes: WNL, Conjunctiva Clear Nose: Yes: WNL Nasal Passage: Yes: WNL Oral/Pharynx: Yes: WNL Outer Ear: Yes: WNL Ear Canal: Yes: WNL Neck: Yes: WNL, Supple, Trachea Midline Problem List - Problems (1) Laryngeal cancer Assessment/Plan: Possible endolaryngeal thrush on previously irradiated tissue, possibly aggravating ability to protect airway and speak clearly. Suggest clotimazole troches 5x/day for 1 week and f/u with me as outpatient. Modify diet and work with COMMISSION ASSOCIATE, possibly thickened liquids Procedure Note Procedure: Fiberoptic laryngoscopy with lido/afrin nasal spray topical anesthesia. No gross masses or lesions, but the endolarynx appears to have a coating of thickened yellow/crusted material bilaterally. Piriform sinuses are clear. no base of tongue nor epiglottic lesions or masses seen. Finding: endolarynx superinfection/mucus possibly thrush
[2019-11-30] MEDS: FAMOTIDINE 20 MG TABLET PO SCH (21:26)
--- NOTE | 2019-11-30 21:57 | PN ---
Physical Exam: SUBJECTIVE: Patient seen and examined at bed side at 11 am deshannan cantuy fevr , chills, N/V/D/C breathing s stable for MBS today S.P HD 2.5 L removed OBJECTIVE: Vital Signs Period Temp Pulse Resp BP Sys/Montes Pulse Ox Last 24 Hr 97.7 F-98.1 F 70-81 18-22 125-167/57-86 94-98 GENERAL: AAOx3 in NAD , muffled voice HEAD: NC/AT EYES: EOMI, Conjunctiva clear, sclera anicteric ENT: dry mucous membrane NECK: Supple, no JVD LUNGS: decrease breath sounds at the bases HEART: RRR, normal s1, s2, murmur no M/R/G ABDOMEN: Soft, ND, NT, +BS 4 Q, no CVA Tenderness LOWER EXTREMITIES: no edema, +2DP pulse, NEUROLOGICAL: No focal deficit. Normal speech. gait not observed. PSYCHIATRIC: Cooperative. Good eye contact. Appropriate mood and affect. SKIN: Warm, dry, Laboratory Results - last 24 hr 11/30/19 11/30/19 05:50 05:50 WBC 10.9 H RBC 3.70 L Hgb 12.4 Hct 37.7 MCV 101.8 H MCH 33.4 MCHC 32.8 RDW 16.8 H Plt Count 203 MPV 8.9 Sodium 141 Potassium 4.3 Chloride 102 Carbon Dioxide 28 Anion Gap 12 BUN 69.1 H Creatinine 8.6 H* Est GFR (CKD-EPI)AfAm 6.66 Est GFR (CKD-EPI)NonAf 5.75 Random Glucose 113 H Calcium 9.2 Active Medications Generic Name Dose Route Start Last Admin Trade Name Freq PRN Reason Stop Dose Admin Abacavir Sulfate 300 mg 11/25/19 22:00 11/30/19 21:27 Ziagen - PO 300 mg BID JIMENEZ Administration Acetaminophen 650 mg 11/25/19 19:40 11/29/19 11:46 Tylenol - PO 650 mg Q6H PRN Administration PAIN LEVEL 6-10 Albuterol Sulfate 1 amp 11/26/19 14:47 11/28/19 00:30 Ventolin 0.083% Nebulizer Soln - NEB 1 amp Q4H PRN Administration SHORT OF BREATH/WHEEZING Albuterol/Ipratropium 1 amp 11/26/19 16:00 11/30/19 21:38 Duoneb - NEB 1 amp RQID JIMENEZ Administration Aspirin 81 mg 11/26/19 10:00 11/30/19 09:38 Asa - PO 81 mg DAILY JIMENEZ Administration Benzocaine/Menthol 1 each 11/26/19 02:16 11/26/19 02:40 Cepacol Lozenge - MM 1 each PRN PRN Administration SORE THROAT Citalopram Hydrobromide 10 mg 11/26/19 10:00 11/30/19 09:40 Celexa - PO 10 mg DAILY JIM[facility]Z Administration Famotidine 20 mg 11/25/19 22:00 11/30/19 21:26 Pepcid - PO 20 mg HS JIMENEZ Administration Fluconazole 100 mg 11/26/19 10:00 11/30/19 09:38 Diflucan - PO 100 mg DAILY JIMENEZ Administration Heparin Sodium (Porcine) 5,000 unit 11/25/19 22:00 11/30/19 21:26 Heparin - SQ 5,000 unit TID JIMENEZ Administration Heparin Sodium (Porcine) 300 unit 12/01/19 06:00 Heparin - IVPUSH 12/01/19 08:01 Q1H JIMENEZ Sodium Chloride 250 mls @ 3,000 mls/hr 11/26/19 14:00 Normal Saline - IV PRN PRN Hypotension during Dialysis Sodium Chloride 250 mls @ 3,000 mls/hr 11/30/19 13:17 Normal Saline - IV 12/01/19 13:17 PRN PRN Hypotension during Dialysis Labetalol HCl 300 mg 11/25/19 22:00 11/30/19 21:26 Normodyne - PO 300 mg BID JIMENEZ Administration Lamivudine 50 mg 11/26/19 10:00 11/30/19 09:41 Epivir Oral Solution - PO 50 mg DAILY JIMENEZ Administration Lidocaine/Aluminum/Magnesium/Simeth 5 ml 11/25/19 18:00 11/30/19 18:03 Magic Mouthwash *Sjr Formula* - MM 5 ml Q6HPO JIMENEZ Administration Lidocaine/Prilocaine 1 applic 11/29/19 12:25 Emla - TP PRN PRN PAIN LEVEL 1 - 3 Losartan Potassium 100 mg 11/26/19 10:00 11/30/19 09:39 Cozaar - PO 100 mg DAILY JIMENEZ Administration Methylprednisolone Sodium Succinate 40 mg 11/28/19 18:00 11/30/19 18:03 Solu-Medrol - IVPUSH 40 mg Q8H-IV JIMENEZ Administration Nicotine 21 mg 11/27/19 15:45 11/30/19 09:39 Nicoderm Patch - TD 21 mg DAILY JIMENEZ Administration Nifedipine 90 mg 11/26/19 10:00 11/30/19 09:39 Procardia Xl - PO 90 mg DAILY JIMENEZ Administration Nystatin 500,000 units 11/25/19 18:00 11/30/19 18:03 Nystatin Oral Suspension - PO 500,000 units Q6HPO JIMENEZ Administration Pantoprazole Sodium 40 mg 11/27/19 13:00 11/30/19 09:38 Protonix - PO 40 mg DAILY JIMENEZ Administration Sevelamer Carbonate 1,600 mg 11/25/19 17:30 11/30/19 18:04 Renvela - PO 1,600 mg TIDCM JIMENEZ Administration Simethicone 80 mg 11/28/19 22:15 11/30/19 21:26 Mylicon - PO 80 mg QID JIMENEZ Administration CBC, BMP 11/30/19 05:50 11/30/19 05:50 ASSESSMENT/PLAN: 88 year old female with PMH of HTN, COPD, CAD, CHF, asthma, and hypothyroidism, sent by her pcp for worsening sob. #Acute copd exacerbation * improving , cont Sulomedrol and broncho dilators # Dysphagia , pharyngeal phase for solid and liquids 2/2 radiation therapy * seen by ENT with no mass or lesion noted possible infection * MBS done with high risk of aspiration recommend npo * will start clinimix for now and if no improvement will benifit from PEG tube placement and pt ofelia like to do any thing to prolnged his life * CT of neck shows multiple hypodense thyroid nodules - will need US as outpatient #HTN * cont labetolol , cozaar and nefidipine #Sinusitis * CT Head: Left sphenoid sinusitis * Fluticasone IN spray daily PRN for post nasal drip #hypothyroidism * cont home med #FEN * no iv fluids * monitor lytes * NPO exempt meds till switch to IV or equivalent. # dispo : monitor in tele Visit type - Emergency Visit Emergency Visit: Yes ED Registration Date: 11/25/19 Care time: The patient presented to the Emergency Department on the above date and was hospitalized for further evaluation of their emergent condition. - New Patient This patient is new to me today: Yes Date on this admission: 11/30/19 - Critical Care Critical Care patient: No ATTENDING PHYSICIAN STATEMENT I saw and evaluated the patient. I reviewed the resident's note and discussed the case with the resident. I agree with the resident's findings and plan as documented. SUBJECTIVE: OBJECTIVE: ASSESSMENT AND PLAN:
[2019-12-01] MEDS: AMINO ACIDS 4.25%/D5W 1,000 ML IV SCH ×4 (00:46→23:00)
[2019-12-01] MEDS: NYSTATIN 500,000 UNITS/5 ML SUSPENSION PO SCH ×4 (01:16→18:51)
[2019-12-01] MEDS: MAG HYDROX/ALH/SMC/DPHA/LIDO 240 ML MOUTHWASH MM SCH ×4 (01:16→18:52)
[2019-12-01] MEDS: methylPREDNISolone NA SUCC 40 MG/1 ML VIAL IVPUSH SCH ×3 (01:16→17:47)
[2019-12-01] MEDS: HEPARIN NA (PORCINE) 5,000 UNITS/ML 1ML VIAL SQ SCH ×3 (05:07→22:10)
[2019-12-01] MEDS: HEPARIN NA (PORCINE) 5,000 UNITS/ML 1ML VIAL IVPUSH SCH ×3 (07:00→09:00)
[2019-12-01 07:17] LABS: BASO % 0.1 % (0-2.0); HEMATOCRIT 34.9 % (35.4-49); HEMOGLOBIN 11.2 GM/dL (11.7-16.9); MCHC 32.2 g/dl (32.0-35.9); MEAN CELL VOLUME 102.6 fl (80-96); MEAN PLT VOLUME 9.1 fl (7.5-11.1); MONO % 3.6 % (3.8-10.2); NEUT % 93.3 % (42.8-82.8); PLATELET COUNT 190 K/MM3 (134-434); RDW 17.4 % (11.9-15.9); WHITE BLOOD COUNT 8.1 K/mm3 (4.0-10.0)
[2019-12-01 07:27] LABS: HEMATOCRIT 36.2 % (35.4-49); HEMOGLOBIN 11.8 GM/dL (11.7-16.9); MCH 32.8 pg (25.7-33.7); MCHC 32.5 g/dl (32.0-35.9); MEAN CELL VOLUME 100.7 fl (80-96); MEAN PLT VOLUME 8.9 fl (7.5-11.1); PLATELET COUNT 203 K/MM3 (134-434); RDW 16.3 % (11.9-15.9)
[2019-12-01 08:01] LABS: CALCIUM 8.9 mg/dL (8.5-10.1); PHOSPHOROUS 6.4 mg/dL (2.5-4.9); POTASSIUM 4.6 mmol/L (3.5-5.1)
[2019-12-01] MEDS: ALBUTEROL SO4 2.5/IPRATROPIUM 0.5 INH SOL 3 ML VIAL.NEB. NEB SCH ×4 (08:10→20:39)
[2019-12-01] MEDS: SEVELAMER CARBONATE 800 MG TAB (FP) PO SCH ×3 (08:13→18:14)
[2019-12-01 08:19] LABS: CREATININE 10.7 mg/dL (0.55-1.3)
--- NOTE | 2019-12-01 09:04 | PN ---
Progress Note, Physician History of Present Illness: GI FOLLOW UP NOTE Patient examined and case discussed with Dr Sandy Patient continue to have dysphagia with liquids and solids. Barium swallow done yesterday and shows high risk of aspiration for both solids and liquids, recommendation for NPO, consider alternative method for providing medication, hydration, and nutrition. Denies nausea, vomiting, abdominal pain, diarrhea, constipation, melena. - Current Medication List Current Medications: Active Medications Abacavir Sulfate (Ziagen -) 300 mg PO BID [facility] Last Admin: 11/30/19 21:27 Dose: 300 mg Acetaminophen (Tylenol -) 650 mg PO Q6H PRN PRN Reason: PAIN LEVEL 6-10 Last Admin: 11/29/19 11:46 Dose: 650 mg Albuterol Sulfate (Ventolin 0.083% Nebulizer Soln -) 1 amp NEB Q4H PRN PRN Reason: SHORT OF BREATH/WHEEZING Last Admin: 11/28/19 00:30 Dose: 1 amp Albuterol/Ipratropium (Duoneb -) 1 amp NEB RQID [facility] Last Admin: 11/30/19 21:38 Dose: 1 amp Aspirin (Asa -) 81 mg PO DAILY [facility] Last Admin: 11/30/19 09:38 Dose: 81 mg Benzocaine/Menthol (Cepacol Lozenge -) 1 each MM PRN PRN PRN Reason: SORE THROAT Last Admin: 11/26/19 02:40 Dose: 1 each Citalopram Hydrobromide (Celexa -) 10 mg PO DAILY [facility] Last Admin: 11/30/19 09:40 Dose: 10 mg Famotidine (Pepcid -) 20 mg PO HS [facility] Last Admin: 11/30/19 21:26 Dose: 20 mg Fluconazole (Diflucan -) 100 mg PO DAILY [facility] Last Admin: 11/30/19 09:38 Dose: 100 mg Heparin Sodium (Porcine) (Heparin -) 5,000 unit SQ TID [facility] Last Admin: 12/01/19 05:07 Dose: 5,000 unit Sodium Chloride (Normal Saline -) 250 mls @ 3,000 mls/hr IV PRN PRN PRN Reason: Hypotension during Dialysis Sodium Chloride (Normal Saline -) 250 mls @ 3,000 mls/hr IV PRN PRN PRN Reason: Hypotension during Dialysis Stop: 12/01/19 13:17 Amino Acids (Clinimix -) 1,000 mls @ 84 mls/hr IV Q12H [facility] Last Admin: 12/01/19 00:46 Dose: 84 mls/hr Labetalol HCl (Normodyne -) 300 mg PO BID [facility] Last Admin: 11/30/19 21:26 Dose: 300 mg Lamivudine (Epivir Oral Solution -) 50 mg PO DAILY [facility] Last Admin: 11/30/19 09:41 Dose: 50 mg Lidocaine/Aluminum/Magnesium/Simeth (Magic Mouthwash *Sjr Formula* -) 5 ml MM Q6HPO [facility] Last Admin: 12/01/19 05:08 Dose: 5 ml Lidocaine/Prilocaine (Emla -) 1 applic TP PRN PRN PRN Reason: PAIN LEVEL 1 - 3 Losartan Potassium (Cozaar -) 100 mg PO DAILY [facility] Last Admin: 11/30/19 09:39 Dose: 100 mg Methylprednisolone Sodium Succinate (Solu-Medrol -) 40 mg IVPUSH Q8H-IV [facility] Last Admin: 12/01/19 01:16 Dose: 40 mg Nicotine (Nicoderm Patch -) 21 mg TD DAILY [facility] Last Admin: 11/30/19 09:39 Dose: 21 mg Nifedipine (Procardia Xl -) 90 mg PO DAILY [facility] Last Admin: 11/30/19 09:39 Dose: 90 mg Nystatin (Nystatin Oral Suspension -) 500,000 units PO Q6HPO [facility] Last Admin: 12/01/19 05:08 Dose: 500,000 units Pantoprazole Sodium (Protonix -) 40 mg PO DAILY [facility] Last Admin: 11/30/19 09:38 Dose: 40 mg Sevelamer Carbonate (Renvela -) 1,600 mg PO TIDCM [facility] Last Admin: 11/30/19 18:04 Dose: 1,600 mg Simethicone (Mylicon -) 80 mg PO QID [facility] Last Admin: 11/30/19 21:26 Dose: 80 mg - Objective Vital Signs: Vital Signs Temperature 98.5 F 12/01/19 06:55 Pulse Rate 62 12/01/19 07:30 Respiratory Rate 18 12/01/19 07:30 Blood Pressure 181/95 H 12/01/19 07:30 O2 Sat by Pulse Oximetry (%) 98 02/11/20 22:00 Constitutional: Yes: No Distress, Calm Eyes: Yes: Conjunctiva Clear HENT: Yes: Atraumatic Cardiovascular: Yes: Regular Rate and Rhythm Respiratory: Yes: Regular, Rhonchi Gastrointestinal: Yes: Normal Bowel Sounds, Soft Neurological: Yes: Alert Psychiatric: Yes: Alert Labs: CBC, BMP 12/01/19 07:00 12/01/19 07:17 Problem List - Problems (1) Throat pain Assessment/Plan: >R/o secondary to radiation vs pharnygitis >Barium Swallow results reviewed >Swallow eval with COMMUNITY SERVICE TECHNICIAN >Pantoprazole Code(s): R07.0 - PAIN IN THROAT (2) Dysphagia Assessment/Plan: >R/o secondary to radiation vs pharnygitis >Barium Swallow results reviewed >Swallow eval with COMMUNITY SERVICE TECHNICIAN >ENT recommendations reviewed >patient will most likely need Gtube placement for nutrition and medication administration, consider consulting IR for G tube placement Code(s): R13.10 - DYSPHAGIA, UNSPECIFIED
[2019-12-01 09:29] LABS: ANISOCYTOSIS 2+; MACROCYTOSIS 2+; PLATELET ESTIMATE NORMAL
--- NOTE | 2019-12-01 09:59 | PN ---
Physical Exam: SUBJECTIVE: Patient seen and examined at bed amber e, his BP elevated over nigt for HD today denies any fever, chills, N/V/D/C hold asa for 7 days for exepected PEG next friday hold Heparin SC the night before procedure His X at bed side would like to be informed before procedure at Cell# [phone] karanvinny shaw and pt agree with that OBJECTIVE: Vital Signs Period Temp Pulse Resp BP Sys/Montes Pulse Ox Last 24 Hr 97.1 F-98.5 F 62-95 18-20 125-187/67-114 98-98 GENERAL: AAOx3 in NAD , with muffled voice HEAD: NC/AT EYES: EOMI, Conjunctiva clear, sclera anicteric ENT: dry mucous membrane NECK: Supple, no JVD, LUNGS: diffuse wheezing HEART: RRR, , normal s1, s2, murmur no M/R/G ABDOMEN: Soft, ND, NT, +BS 4 Q, no CVA Tenderness LOWER EXTREMITIES: no edema, +2DP pulse, NEUROLOGICAL: No focal deficit. Normal speech. gait not observed. PSYCHIATRIC: Cooperative. Good eye contact. Appropriate mood and affect. SKIN: Warm, dry, Laboratory Results - last 24 hr 12/01/19 12/01/19 12/01/19 06:04 07:00 07:17 WBC 8.1 9.0 RBC 3.40 L 3.60 L Hgb 11.2 L 11.8 Hct 34.9 L 36.2 MCV 102.6 H 100.7 H MCH 33.0 32.8 MCHC 32.2 32.5 RDW 17.4 H 16.3 H Plt Count 190 203 MPV 9.1 8.9 Absolute Neuts (auto) 7.5 Neutrophils % 93.3 H Neutrophils % (Manual) 98.0 H Band Neutrophils % 0.0 Lymphocytes % 3.0 L Lymphocytes % (Manual) 2.0 L Monocytes % 3.6 L Monocytes % (Manual) 0 L D Eosinophils % 0.0 Eosinophils % (Manual) 0.0 Basophils % 0.1 Basophils % (Manual) 0.0 Myelocytes % (Man) 0 Promyelocytes % (Man) 0 Blast Cells % (Manual) 0 Nucleated RBC % 0 Metamyelocytes 0 Hypochromia 0 Platelet Estimate Normal Polychromasia 0 Poikilocytosis 0 Anisocytosis 2+ Microcytosis 0 Macrocytosis 2+ Sodium 138 Potassium 4.6 Chloride 100 Carbon Dioxide 22 Anion Gap 16 BUN 106.0 H* Creatinine 10.7 H* Est GFR (CKD-EPI)AfAm 5.12 Est GFR (CKD-EPI)NonAf 4.42 Random Glucose 121 H Calcium 8.9 Phosphorus 6.4 H Active Medications Generic Name Dose Route Start Last Admin Trade Name Freq PRN Reason Stop Dose Admin Abacavir Sulfate 300 mg 11/25/19 22:00 11/30/19 21:27 Ziagen - PO 300 mg BID JIMENEZ Administration Acetaminophen 650 mg 11/25/19 19:40 11/29/19 11:46 Tylenol - PO 650 mg Q6H PRN Administration PAIN LEVEL 6-10 Albuterol Sulfate 1 amp 11/26/19 14:47 11/28/19 00:30 Ventolin 0.083% Nebulizer Soln - NEB 1 amp Q4H PRN Administration SHORT OF BREATH/WHEEZING Albuterol/Ipratropium 1 amp 11/26/19 16:00 11/30/19 21:38 Duoneb - NEB 1 amp RQID JIMENEZ Administration Aspirin 81 mg 11/26/19 10:00 11/30/19 09:38 Asa - PO 81 mg DAILY JIMENEZ Administration Benzocaine/Menthol 1 each 11/26/19 02:16 11/26/19 02:40 Cepacol Lozenge - MM 1 each PRN PRN Administration SORE THROAT Citalopram Hydrobromide 10 mg 11/26/19 10:00 11/30/19 09:40 Celexa - PO 10 mg DAILY JIMENEZ Administration Famotidine 20 mg 11/25/19 22:00 11/30/19 21:26 Pepcid - PO 20 mg HS JIMENEZ Administration Fluconazole 100 mg 11/26/19 10:00 11/30/19 09:38 Diflucan - PO 100 mg DAILY JIMENEZ Administration Heparin Sodium (Porcine) 5,000 unit 11/25/19 22:00 12/01/19 05:07 Heparin - SQ 5,000 unit TID JIMENEZ Administration Sodium Chloride 250 mls @ 3,000 mls/hr 11/26/19 14:00 Normal Saline - IV PRN PRN Hypotension during Dialysis Sodium Chloride 250 mls @ 3,000 mls/hr 11/30/19 13:17 Normal Saline - IV 12/01/19 13:17 PRN PRN Hypotension during Dialysis Amino Acids 1,000 mls @ 84 mls/hr 11/30/19 22:15 12/01/19 00:46 Clinimix - IV 84 mls/hr Q12H JIMENEZ Administration Labetalol HCl 300 mg 11/25/19 22:00 11/30/19 21:26 Normodyne - PO 300 mg BID JIMENEZ Administration Lamivudine 50 mg 11/26/19 10:00 11/30/19 09:41 Epivir Oral Solution - PO 50 mg DAILY JIMENEZ Administration Lidocaine/Aluminum/Magnesium/Simeth 5 ml 11/25/19 18:00 12/01/19 05:08 Magic Mouthwash *Sjr Formula* - MM 5 ml Q6HPO JIMENEZ Administration Lidocaine/Prilocaine 1 applic 11/29/19 12:25 Emla - TP PRN PRN PAIN LEVEL 1 - 3 Losartan Potassium 100 mg 11/26/19 10:00 11/30/19 09:39 Cozaar - PO 100 mg DAILY JIMENEZ Administration Methylprednisolone Sodium Succinate 40 mg 11/28/19 18:00 12/01/19 01:16 Solu-Medrol - IVPUSH 40 mg Q8H-IV JIMENEZ Administration Nicotine 21 mg 11/27/19 15:45 11/30/19 09:39 Nicoderm Patch - TD 21 mg DAILY JIMENEZ Administration Nifedipine 90 mg 11/26/19 10:00 11/30/19 09:39 Procardia Xl - PO 90 mg DAILY JIMENEZ Administration Nystatin 500,000 units 11/25/19 18:00 12/01/19 05:08 Nystatin Oral Suspension - PO 500,000 units Q6HPO JIMENEZ Administration Pantoprazole Sodium 40 mg 11/27/19 13:00 11/30/19 09:38 Protonix - PO 40 mg DAILY JIMENEZ Administration Sevelamer Carbonate 1,600 mg 11/25/19 17:30 11/30/19 18:04 Renvela - PO 1,600 mg TIDCM JIMENEZ Administration Simethicone 80 mg 11/28/19 22:15 11/30/19 21:26 Mylicon - PO 80 mg QID JIMENEZ Administration CBC, BMP 12/01/19 07:00 12/01/19 07:17 ASSESSMENT/PLAN: 69 y/o M, pmh of HIV, throat cancer s/p radiation at [place], COPD not on home O2, ESRD (on dialysis M/W/F), cardiac arreswt x4 (last arrest was last month), presented to the ED because of SOB. #Acute copd exacerbation * improving , cont Sulomedrol and broncho dilators # Dysphagia , pharyngeal phase for solid and liquids 2/2 radiation therapy * seen by ENT with no mass or lesion noted possible infection * MBS done with high risk of aspiration recommend npo * will start clinimix for now and if no improvement will benifit from PEG tube placement and pt ofelia like to do any thing to prolnged his life * CT of neck shows multiple hypodense thyroid nodules - will need US as outpatient * HOLD ASA for 7 days for PEG next week Friday per IR * NGT placed * ENT evaluation appreciated - laryngoscopy showed coating of thick yellow/ crusted material on endolarynx #Oral thrush * ID consulted * cont Diflucan 10 mg po daily through NGT #ESRD * Nephrology consulted: Dr. Pereyra * HD today 2.5 leter removed * next HD friday #HIV * last CD4 in 600s 11/16/2019 * Resume pts home #Throat Ca s/p radiation * w/ underlying dysphagia, mucositic changes in throat -give magic mouth wash, cover for oral candidiasis w/ oral fluconazole 200mg -Heme Onc evaluation for mucositis #LORNA Lung lesion # COPD * bronchodilators * Sulo-medrol 40 Q 8hr * Pulmonary consulted primary vs mets. CT Chest 11/03- severe COPD, no consolidation, Tiny cavity in LORNA 7mm w/ mild thickening and questionable, b/l posterior CV pleural effusion. Cardiomegaly mild, aneurysmal dilation of ascending aorta 4.5cm in AP dimension. Exophytic left renal pole cyst and indeterminate exophytic lesion on right mid kidney laterally as well as posteriorly 1.6 and .8 cm. #HTN, uncontrolled * cont labetolol, nefidipine losartan * add clonidine patch and Hydralizin IV once due to uncontrolled BP * monitor closely #Depression/Anxiety * continue Celexa. # nicotine dependence cont nicotin patch #HLD * Continue Statin. # H/O cardiac arrest #DVT ppx * Heparin SQ. * hold the night before PEG tune # GI proph PPI # NGT placed for mediciation , started on clinimix and infuvit 10 ml and lipid sper manager convention # For PEG kaleb next Friday Visit type - Emergency Visit Emergency Visit: Yes ED Registration Date: 11/25/19 Care time: The patient presented to the Emergency Department on the above date and was hospitalized for further evaluation of their emergent condition. - New Patient This patient is new to me today: No - Critical Care Critical Care patient: No ATTENDING PHYSICIAN STATEMENT I saw and evaluated the patient. I reviewed the resident's note and discussed the case with the resident. I agree with the resident's findings and plan as documented. SUBJECTIVE: OBJECTIVE: ASSESSMENT AND PLAN:
[2019-12-01] MEDS: CITALOPRAM HYDROBROMIDE 10 MG TABLET PO SCH (10:14)
[2019-12-01] MEDS: FLUCONAZOLE 100 MG TABLET (UD) PO SCH (10:15)
[2019-12-01] MEDS: LOSARTAN POTASSIUM 50 MG TABLET (FP) PO SCH (10:15)
[2019-12-01] MEDS: LABETALOL HCL 100 MG TABLET (FP) PO SCH ×2 (10:16→22:09)
[2019-12-01] MEDS: NIFEdipine E.R. 90 MG TABLET PO SCH (10:16)
[2019-12-01] MEDS: SIMETHICONE 80 MG TAB.CHEW (FP) PO SCH ×4 (10:52→22:10)
[2019-12-01] MEDS: PANTOPRAZOLE 40 MG TABLET PO SCH (10:53)
--- NOTE | 2019-12-01 10:56 | PN ---
Progress Note, Physician History of Present Illness: PULMONARY ALERT,FEELING BETTER,LESS THROAT DISCOMFORT. BREATHING BETTER ON HD - Current Medication List Current Medications: Active Medications Abacavir Sulfate (Ziagen -) 300 mg PO BID [facility] Last Admin: 11/30/19 21:27 Dose: 300 mg Acetaminophen (Tylenol -) 650 mg PO Q6H PRN PRN Reason: PAIN LEVEL 6-10 Last Admin: 11/29/19 11:46 Dose: 650 mg Albuterol Sulfate (Ventolin 0.083% Nebulizer Soln -) 1 amp NEB Q4H PRN PRN Reason: SHORT OF BREATH/WHEEZING Last Admin: 11/28/19 00:30 Dose: 1 amp Albuterol/Ipratropium (Duoneb -) 1 amp NEB RQID [facility] Last Admin: 11/30/19 21:38 Dose: 1 amp Aspirin (Asa -) 81 mg PO DAILY [facility] Last Admin: 11/30/19 09:38 Dose: 81 mg Benzocaine/Menthol (Cepacol Lozenge -) 1 each MM PRN PRN PRN Reason: SORE THROAT Last Admin: 11/26/19 02:40 Dose: 1 each Citalopram Hydrobromide (Celexa -) 10 mg PO DAILY [facility] Last Admin: 11/30/19 09:40 Dose: 10 mg Famotidine (Pepcid -) 20 mg PO HS [facility] Last Admin: 11/30/19 21:26 Dose: 20 mg Fluconazole (Diflucan -) 100 mg PO DAILY [facility] Last Admin: 11/30/19 09:38 Dose: 100 mg Heparin Sodium (Porcine) (Heparin -) 5,000 unit SQ TID [facility] Last Admin: 12/01/19 05:07 Dose: 5,000 unit Sodium Chloride (Normal Saline -) 250 mls @ 3,000 mls/hr IV PRN PRN PRN Reason: Hypotension during Dialysis Sodium Chloride (Normal Saline -) 250 mls @ 3,000 mls/hr IV PRN PRN PRN Reason: Hypotension during Dialysis Stop: 12/01/19 13:17 Amino Acids (Clinimix -) 1,000 mls @ 84 mls/hr IV Q12H [facility] Last Admin: 12/01/19 00:46 Dose: 84 mls/hr Labetalol HCl (Normodyne -) 300 mg PO BID [facility] Last Admin: 11/30/19 21:26 Dose: 300 mg Lamivudine (Epivir Oral Solution -) 50 mg PO DAILY [facility] Last Admin: 11/30/19 09:41 Dose: 50 mg Lidocaine/Aluminum/Magnesium/Simeth (Magic Mouthwash *Sjr Formula* -) 5 ml MM Q6HPO [facility] Last Admin: 12/01/19 05:08 Dose: 5 ml Lidocaine/Prilocaine (Emla -) 1 applic TP PRN PRN PRN Reason: PAIN LEVEL 1 - 3 Losartan Potassium (Cozaar -) 100 mg PO DAILY [facility] Last Admin: 11/30/19 09:39 Dose: 100 mg Methylprednisolone Sodium Succinate (Solu-Medrol -) 40 mg IVPUSH Q8H-IV [facility] Last Admin: 12/01/19 01:16 Dose: 40 mg Nicotine (Nicoderm Patch -) 21 mg TD DAILY [facility] Last Admin: 11/30/19 09:39 Dose: 21 mg Nifedipine (Procardia Xl -) 90 mg PO DAILY [facility] Last Admin: 11/30/19 09:39 Dose: 90 mg Nystatin (Nystatin Oral Suspension -) 500,000 units PO Q6HPO [facility] Last Admin: 12/01/19 05:08 Dose: 500,000 units Pantoprazole Sodium (Protonix -) 40 mg PO DAILY [facility] Last Admin: 11/30/19 09:38 Dose: 40 mg Sevelamer Carbonate (Renvela -) 1,600 mg PO TIDCM [facility] Last Admin: 11/30/19 18:04 Dose: 1,600 mg Simethicone (Mylicon -) 80 mg PO QID [facility] Last Admin: 11/30/19 21:26 Dose: 80 mg - Objective Vital Signs: Vital Signs Temperature 97.1 F L 12/01/19 09:00 Pulse Rate 78 12/01/19 10:30 Respiratory Rate 18 12/01/19 10:30 Blood Pressure 163/75 12/01/19 10:30 O2 Sat by Pulse Oximetry (%) 98 11/30/19 22:00 Constitutional: Yes: Calm, Thin Eyes: Yes: WNL HENT: Yes: WNL Neck: Yes: WNL Cardiovascular: Yes: Regular Rate and Rhythm, S1, S2 Respiratory: Yes: Diminished Gastrointestinal: Yes: Normal Bowel Sounds, Soft Extremities: Yes: WNL Edema: No Labs: CBC, BMP 12/01/19 07:00 12/01/19 07:17 Assessment/Plan Problem List - Problems (1) COPD exacerbation Code(s): J44.1 - CHRONIC OBSTRUCTIVE PULMONARY DISEASE W (ACUTE) EXACERBATION (2) Anemia Code(s): D64.9 - ANEMIA, UNSPECIFIED Qualifiers: Anemia type: unspecified type Qualified Code(s): D64.9 - Anemia, unspecified (3) Anemia, chronic disease Code(s): D63.8 - ANEMIA IN OTHER CHRONIC DISEASES CLASSIFIED ELSEWHERE (4) CKD (chronic kidney disease) requiring chronic dialysis Code(s): N18.6 - END STAGE RENAL DISEASE; Z99.2 - DEPENDENCE ON RENAL DIALYSIS (5) End stage renal disease Code(s): N18.6 - END STAGE RENAL DISEASE (6) HIV (human immunodeficiency virus infection) Code(s): B20 - HUMAN IMMUNODEFICIENCY VIRUS [HIV] DISEASE (7) HTN (hypertension) Code(s): I10 - ESSENTIAL (PRIMARY) HYPERTENSION (8) Hyperlipidemia Code(s): E78.5 - HYPERLIPIDEMIA, UNSPECIFIED Qualifiers: (10) COPD exacerbation Code(s): J44.1 - CHRONIC OBSTRUCTIVE PULMONARY DISEASE W (ACUTE) EXACERBATION (11) Shortness of breath Code(s): R06.02 - SHORTNESS OF BREATH Medrol BD TX Standing and PRN Supplemental O2 as needed No smoking was counseled VTE prophylaxis ENT evaluation HD per Renal ASPIRATION PRECAUTIONS ABX DR MARK
[2019-12-01] MEDS: NICOTINE 21 MG/24 HOURS TOPICAL PATCH TD SCH (11:31)
--- NOTE | 2019-12-01 14:49 | PN ---
Progress Note (short form) - Note Progress Note: Renal follow up for ERSD on HD Seen and examined at the bedside awake and alert still has pain and discomfort in his throat s/p barium swallow and ENT eval s/p dialysis earlier today denies any cp, sob, fever, chills, N/V/D, abd pain, COX or confusion Vital Signs Temperature 97.1 F L 12/01/19 09:00 Pulse Rate 66 12/01/19 11:05 Respiratory Rate 18 12/01/19 11:05 Blood Pressure 178/100 H 12/01/19 11:05 O2 Sat by Pulse Oximetry (%) 98 12/01/19 10:00 Intake & Output 11/28/19 11/29/19 11/30/19 12/01/19 23:59 23:59 23:59 23:59 Intake Total 980 1000 760 980 Output Total 3200 3000 Balance 980 -2200 760 -2019 Weight 72.303 kg 69.944 kg 70.398 kg 73.119 kg NAD awake and alert neck supple RRR Dec BS bilateral lung allred, no wheeze soft NT/ND no LE edema CBC, BMP 12/01/19 07:00 12/01/19 07:17 Current Medications Abacavir Sulfate (Ziagen -) 300 mg PO BID [facility] Last Admin: 11/30/19 21:27 Dose: 300 mg Acetaminophen (Tylenol -) 650 mg PO Q6H PRN PRN Reason: PAIN LEVEL 6-10 Last Admin: 11/29/19 11:46 Dose: 650 mg Albuterol Sulfate (Ventolin 0.083% Nebulizer Soln -) 1 amp NEB Q4H PRN PRN Reason: SHORT OF BREATH/WHEEZING Last Admin: 11/28/19 00:30 Dose: 1 amp Albuterol/Ipratropium (Duoneb -) 1 amp NEB RQID [facility] Last Admin: 12/01/19 12:11 Dose: 1 amp Benzocaine/Menthol (Cepacol Lozenge -) 1 each MM PRN PRN PRN Reason: SORE THROAT Last Admin: 11/26/19 02:40 Dose: 1 each Citalopram Hydrobromide (Celexa -) 10 mg PO DAILY [facility] Last Admin: 11/30/19 09:40 Dose: 10 mg Famotidine (Pepcid -) 20 mg PO HS [facility] Last Admin: 11/30/19 21:26 Dose: 20 mg Fluconazole (Diflucan -) 100 mg PO DAILY [facility] Last Admin: 11/30/19 09:38 Dose: 100 mg Heparin Sodium (Porcine) (Heparin -) 5,000 unit SQ TID [facility] Stop: 12/06/19 22:00 Last Admin: 12/01/19 05:07 Dose: 5,000 unit Sodium Chloride (Normal Saline -) 250 mls @ 3,000 mls/hr IV PRN PRN PRN Reason: Hypotension during Dialysis Amino Acids (Clinimix -) 1,000 mls @ 84 mls/hr IV Q12H [facility] Last Admin: 12/01/19 00:46 Dose: 84 mls/hr Labetalol HCl (Normodyne -) 300 mg PO BID [facility] Last Admin: 11/30/19 21:26 Dose: 300 mg Lamivudine (Epivir Oral Solution -) 50 mg PO DAILY [facility] Last Admin: 11/30/19 09:41 Dose: 50 mg Lidocaine/Aluminum/Magnesium/Simeth (Magic Mouthwash *Sjr Formula* -) 5 ml MM Q6HPO [facility] Last Admin: 12/01/19 05:08 Dose: 5 ml Lidocaine/Prilocaine (Emla -) 1 applic TP PRN PRN PRN Reason: PAIN LEVEL 1 - 3 Losartan Potassium (Cozaar -) 100 mg PO DAILY [facility] Last Admin: 11/30/19 09:39 Dose: 100 mg Methylprednisolone Sodium Succinate (Solu-Medrol -) 40 mg IVPUSH Q8H-IV [facility] Last Admin: 12/01/19 11:32 Dose: 40 mg Nicotine (Nicoderm Patch -) 21 mg TD DAILY [facility] Last Admin: 12/01/19 11:31 Dose: 21 mg Nifedipine (Procardia Xl -) 90 mg PO DAILY [facility] Last Admin: 11/30/19 09:39 Dose: 90 mg Nystatin (Nystatin Oral Suspension -) 500,000 units PO Q6HPO [facility] Last Admin: 12/01/19 05:08 Dose: 500,000 units Pantoprazole Sodium (Protonix -) 40 mg PO DAILY [facility] Last Admin: 11/30/19 09:38 Dose: 40 mg Sevelamer Carbonate (Renvela -) 1,600 mg PO TIDCM [facility] Last Admin: 11/30/19 18:04 Dose: 1,600 mg Simethicone (Mylicon -) 80 mg PO QID [facility] Last Admin: 11/30/19 21:26 Dose: 80 mg 69 year old male with pmhx of esrd, hiv, copd, and cardiac arrest who presents to the ER with shortness of breath. 1. ESRD on HD 2. Shortness of breath 3. Throat pain/fullness 4. COPD 5. HIV 6. Anemia in CKD 7. Renal Osteodystrophy s/p HD this am with 2.5L UF BUN very high due to steroids, no signs of uremia ENT and swallow eval noted pt is currently NPO, may need feeding tube as he is high aspiration risk on Oral diflucan for suspected thrush CT chest and neck noted, Thyroid US cannot be done as a inpatient Continue Losartan and Nifedpine next dialysis planned for Friday Trey Pereyra DO
[2019-12-01 16:45] VITALS: BMI 21.2
[2019-12-01] MEDS: ACETAMINOPHEN 325 MG TABLET (FP) PO PRN (17:47)
[2019-12-01] MEDS ORDERED: hydrALAZINE HCL 20 MG/ML VIAL IVPUSH ONE (18:06)
--- NOTE | 2019-12-01 18:12 | PN ---
Teaching Attending Note Name of Resident: Bravo Quinonez ATTENDING PHYSICIAN STATEMENT I saw and evaluated the patient. I reviewed the resident's note and discussed the case with the resident. I agree with the resident's findings and plan as documented. SUBJECTIVE: Patient continues to have difficulty swallowing. OBJECTIVE: Vital Signs Period Temp Pulse Resp BP Sys/Montes Pulse Ox Last 24 Hr 97.1 F-98.5 F 62-97 18-20 140-190/69-114 98-98 GENERAL: The patient is awake, alert, fully oriented, and in no acute distress. Voice hoarse. LUNGS: Breath sounds equal, few wheezes, no crackles, no accessory muscle use. HEART: Regular rate and rhythm, S1, S2 without murmur, rub or gallop. ABDOMEN: Soft, nontender, nondistended, normoactive bowel sounds, no guarding, no rebound, no hepatosplenomegaly, no masses. EXTREMITIES: 2+ pulses, warm, well-perfused, no edema. Laboratory Results - last 24 hr 12/01/19 12/01/19 12/01/19 06:04 07:00 07:17 WBC 8.1 9.0 RBC 3.40 L 3.60 L Hgb 11.2 L 11.8 Hct 34.9 L 36.2 MCV 102.6 H 100.7 H MCH 33.0 32.8 MCHC 32.2 32.5 RDW 17.4 H 16.3 H Plt Count 190 203 MPV 9.1 8.9 Absolute Neuts (auto) 7.5 Neutrophils % 93.3 H Neutrophils % (Manual) 98.0 H Band Neutrophils % 0.0 Lymphocytes % 3.0 L Lymphocytes % (Manual) 2.0 L Monocytes % 3.6 L Monocytes % (Manual) 0 L D Eosinophils % 0.0 Eosinophils % (Manual) 0.0 Basophils % 0.1 Basophils % (Manual) 0.0 Myelocytes % (Man) 0 Promyelocytes % (Man) 0 Blast Cells % (Manual) 0 Nucleated RBC % 0 Metamyelocytes 0 Hypochromia 0 Platelet Estimate Normal Polychromasia 0 Poikilocytosis 0 Anisocytosis 2+ Microcytosis 0 Macrocytosis 2+ Sodium 138 Potassium 4.6 Chloride 100 Carbon Dioxide 22 Anion Gap 16 BUN 106.0 H* Creatinine 10.7 H* Est GFR (CKD-EPI)AfAm 5.12 Est GFR (CKD-EPI)NonAf 4.42 Random Glucose 121 H Calcium 8.9 Phosphorus 6.4 H Current Medications Generic Name Dose Route Start Last Admin Trade Name Freq PRN Reason Stop Dose Admin Abacavir Sulfate 300 mg 11/25/19 22:00 11/30/19 21:27 Ziagen - PO 300 mg BID JIMENEZ Administration Acetaminophen 650 mg 11/25/19 19:40 12/01/19 17:47 Tylenol - PO 650 mg Q6H PRN Administration PAIN LEVEL 6-10 Albuterol Sulfate 1 amp 11/26/19 14:47 11/28/19 00:30 Ventolin 0.083% Nebulizer Soln - NEB 1 amp Q4H PRN Administration SHORT OF BREATH/WHEEZING Albuterol/Ipratropium 1 amp 11/26/19 16:00 12/01/19 15:58 Duoneb - NEB Not Given RQID JIMENEZ Benzocaine/Menthol 1 each 11/26/19 02:16 11/26/19 02:40 Cepacol Lozenge - MM 1 each PRN PRN Administration SORE THROAT Citalopram Hydrobromide 10 mg 11/26/19 10:00 11/30/19 09:40 Celexa - PO 10 mg DAILY [facility] Administration Famotidine 20 mg 11/25/19 22:00 11/30/19 21:26 Pepcid - PO 20 mg HS JIMENEZ Administration Fluconazole 100 mg 11/26/19 10:00 11/30/19 09:38 Diflucan - PO 100 mg DAILY [facility] Administration Heparin Sodium (Porcine) 5,000 unit 11/25/19 22:00 12/01/19 05:07 Heparin - SQ 12/06/19 22:00 5,000 unit TID JIMENEZ Administration Sodium Chloride 250 mls @ 3,000 mls/hr 11/26/19 14:00 Normal Saline - IV PRN PRN Hypotension during Dialysis Amino Acids 1,000 mls @ 84 mls/hr 11/30/19 22:15 12/01/19 00:46 Clinimix - IV 84 mls/hr Q12H [facility]IMENE[facility] Administration Fat Emulsion Intravenous 250 mls @ 20.833 mls/hr 12/01/19 22:00 Intralipid - IV DAILY@2200 JIMENEZ Labetalol HCl 300 mg 11/25/19 22:00 11/30/19 21:26 Normodyne - PO 300 mg BID [facility] Administration Lamivudine 50 mg 11/26/19 10:00 11/30/19 09:41 Epivir Oral Solution - PO 50 mg DAILY [facility] Administration Lidocaine/Aluminum/Magnesium/Simeth 5 ml 11/25/19 18:00 12/01/19 05:08 Magic Mouthwash *Sjr Formula* - MM 5 ml Q6HPO [facility]IMENEZ Administration Lidocaine/Prilocaine 1 applic 11/29/19 12:25 Emla - TP PRN PRN PAIN LEVEL 1 - 3 Losartan Potassium 100 mg 11/26/19 10:00 11/30/19 09:39 Cozaar - PO 100 mg DAILY [facility] Administration Methylprednisolone Sodium Succinate 40 mg 11/28/19 18:00 12/01/19 17:47 Solu-Medrol - IVPUSH 40 mg Q8H-IV [facility]NEE[facility] Administration Multivitamins/Minerals 10 ml 12/02/19 10:00 Infuvite Adult - IV DAILY [facility] Nicotine 21 mg 11/27/19 15:45 12/01/19 11:31 Nicoderm Patch - TD 21 mg DAILY [facility] Administration Nifedipine 90 mg 11/26/19 10:00 11/30/19 09:39 Procardia Xl - PO 90 mg DAILY [facility] Administration Nystatin 500,000 units 11/25/19 18:00 12/01/19 05:08 Nystatin Oral Suspension - PO 500,000 units Q6HPO [facility] Administration Pantoprazole Sodium 40 mg 11/27/19 13:00 11/30/19 09:38 Protonix - PO 40 mg DAILY [facility] Administration Sevelamer Carbonate 1,600 mg 11/25/19 17:30 11/30/19 18:04 Renvela - PO 1,600 mg TIDCM [facility] Administration Simethicone 80 mg 11/28/19 22:15 12/01/19 17:47 Mylicon - PO 80 mg QID [facility] Administration ASSESSMENT AND PLAN: This is a 69 year old man with a history of HTN, hyperlipidemia, COPD, cardiac arrest, ESRD, HIV, throat cancer, depression, anxiety who presented to the ED with SOB. 1. Acute exacerbation of COPD - Improving - Continue SoluMedrol, DuoNeb 2. Dysphagia secondary to mucositis/pharyngitis, possible thrush, RT for throat cancer - CT of neck shows multiple hypodense thyroid nodules - will need US as outpatient - Modified barium swallow shows high risk of aspiration for both solids and liquids - Maintain NPO - Continue PPN - NGT for meds and feedings - ENT evaluation appreciated - laryngoscopy showed coating of thick yellow/ crusted material on endolarynx - Continue Diflucan - Patient agreeable to PEG if needed 3. ESRD - Continue HD per nephrology - Continue Renvela 4. HTN - Continue Procardia XL, Labetalol, Cozaar 5. Hyperlipidemia 6. Depression with anxiety - Continue Celexa 7. HIV - Continue Epivir, Ziagen 8. History of cardiac arrest 9. Nicotine dependence - Smoking cessation discussed - Continue nicotine patch
[2019-12-01] MEDS ORDERED: PT OWN MED DRAWER 7, Y5N ONE (21:26)
[2019-12-01] MEDS ORDERED: FAT EMULSIONS 20% 250 ML PREMIX INFUS.BAG IV SCH (22:00)
[2019-12-01] MEDS: FAMOTIDINE 20 MG TABLET PO SCH (22:09)
[2019-12-01] MEDS: FAT EMULSIONS 250 ML IV SCH (22:11)
[2019-12-01] MEDS: ABACAVIR SULFATE 300 MG TABLET PO SCH (22:11)
[2019-12-02] MEDS: MAG HYDROX/ALH/SMC/DPHA/LIDO 240 ML MOUTHWASH MM SCH ×4 (01:09→17:07)
[2019-12-02] MEDS: NYSTATIN 500,000 UNITS/5 ML SUSPENSION PO SCH ×4 (01:09→17:05)
[2019-12-02] MEDS: methylPREDNISolone NA SUCC 40 MG/1 ML VIAL IVPUSH SCH ×3 (01:11→17:05)
[2019-12-02] MEDS ORDERED: hydrALAZINE HCL 20 MG/ML VIAL IVPUSH ONE (01:30)
[2019-12-02] MEDS ORDERED: PT OWN MED DRAWER 7, Y5N ONE ×5 (05:51→21:26)
--- NOTE | 2019-12-02 06:15 | PN ---
Physical Exam: SUBJECTIVE: Patient seen and examined at bed side, his BP better controlled , we start him on clonidin patch , can use labetol iv or hydralyzin IV PRN had HD yesterday , 2.5 l removed denies any fever, chills, N/V/D/C hold asa for 7 days for exepected PEG next friday hold Heparin SC the night before procedure His X at bed side would like to be informed before procedure at Cell# karanvinny shaw and pt agree with that OBJECTIVE: Vital Signs Period Temp Pulse Resp BP Sys/Montes Pulse Ox Last 24 Hr 97.1 F-98.5 F 62-97 18-20 154-190/75-114 98-98 GENERAL: AAOx3 in NAD , with muffled voice HEAD: NC/AT EYES: EOMI, Conjunctiva clear, sclera anicteric ENT: dry mucous membrane NECK: Supple, no JVD, LUNGS: diffuse wheezing HEART: RRR, , normal s1, s2, murmur no M/R/G ABDOMEN: Soft, ND, NT, +BS 4 Q, no CVA Tenderness LOWER EXTREMITIES: no edema, +2DP pulse, NEUROLOGICAL: No focal deficit. Normal speech. gait not observed. PSYCHIATRIC: Cooperative. Good eye contact. Appropriate mood and affect. SKIN: Warm, dry, Laboratory Results - last 24 hr 12/01/19 12/01/19 12/01/19 06:04 07:00 07:17 WBC 8.1 9.0 RBC 3.40 L 3.60 L Hgb 11.2 L 11.8 Hct 34.9 L 36.2 MCV 102.6 H 100.7 H MCH 33.0 32.8 MCHC 32.2 32.5 RDW 17.4 H 16.3 H Plt Count 190 203 MPV 9.1 8.9 Absolute Neuts (auto) 7.5 Neutrophils % 93.3 H Neutrophils % (Manual) 98.0 H Band Neutrophils % 0.0 Lymphocytes % 3.0 L Lymphocytes % (Manual) 2.0 L Monocytes % 3.6 L Monocytes % (Manual) 0 L D Eosinophils % 0.0 Eosinophils % (Manual) 0.0 Basophils % 0.1 Basophils % (Manual) 0.0 Myelocytes % (Man) 0 Promyelocytes % (Man) 0 Blast Cells % (Manual) 0 Nucleated RBC % 0 Metamyelocytes 0 Hypochromia 0 Platelet Estimate Normal Polychromasia 0 Poikilocytosis 0 Anisocytosis 2+ Microcytosis 0 Macrocytosis 2+ Sodium 138 Potassium 4.6 Chloride 100 Carbon Dioxide 22 Anion Gap 16 BUN 106.0 H* Creatinine 10.7 H* Est GFR (CKD-EPI)AfAm 5.12 Est GFR (CKD-EPI)NonAf 4.42 Random Glucose 121 H Calcium 8.9 Phosphorus 6.4 H Active Medications Generic Name Dose Route Start Last Admin Trade Name Freq PRN Reason Stop Dose Admin Abacavir Sulfate 300 mg 11/25/19 22:00 12/01/19 22:11 Ziagen - PO 300 mg BID JIMENEZ Administration Acetaminophen 650 mg 11/25/19 19:40 12/01/19 17:47 Tylenol - PO 650 mg Q6H PRN Administration PAIN LEVEL 6-10 Albuterol Sulfate 1 amp 11/26/19 14:47 11/28/19 00:30 Ventolin 0.083% Nebulizer Soln - NEB 1 amp Q4H PRN Administration SHORT OF BREATH/WHEEZING Albuterol/Ipratropium 1 amp 11/26/19 16:00 12/01/19 20:39 Duoneb - NEB 1 amp RQID JIMENEZ Administration Benzocaine/Menthol 1 each 11/26/19 02:16 11/26/19 02:40 Cepacol Lozenge - MM 1 each PRN PRN Administration SORE THROAT Citalopram Hydrobromide 10 mg 11/26/19 10:00 12/01/19 10:14 Celexa - PO Not Given DAILY JIMENEZ Clonidine HCl 0.1 mg 12/08/19 10:00 Catapres Tts Patch - TD We@1000 JIMENEZ Famotidine 20 mg 11/25/19 22:00 12/01/19 22:09 Pepcid - PO 20 mg HS JIMENEZ Administration Fluconazole 100 mg 11/26/19 10:00 12/01/19 10:15 Diflucan - PO Not Given DAILY JIMENEZ Heparin Sodium (Porcine) 5,000 unit 11/25/19 22:00 12/01/19 22:10 Heparin - SQ 12/06/19 22:00 5,000 unit TID JIMENEZ Administration Sodium Chloride 250 mls @ 3,000 mls/hr 11/26/19 14:00 Normal Saline - IV PRN PRN Hypotension during Dialysis Amino Acids 1,000 mls @ 84 mls/hr 11/30/19 22:15 12/01/19 23:00 Clinimix - IV 84 mls/hr Q12H JIMENEZ Administration Fat Emulsion Intravenous 250 mls @ 20.833 mls/hr 12/01/19 22:00 12/01/19 22: 11 Intralipid - IV 20.833 mls/hr DAILY@2200 JIMENEZ Administration Labetalol HCl 300 mg 11/25/19 22:00 12/01/19 22:09 Normodyne - PO 300 mg BID JIMENEZ Administration Lamivudine 50 mg 11/26/19 10:00 11/30/19 09:41 Epivir Oral Solution - PO 50 mg DAILY [facility] Administration Lidocaine/Aluminum/Magnesium/Simeth 5 ml 11/25/19 18:00 12/02/19 01:09 Magic Mouthwash *Sjr Formula* - MM Not Given Q6HPO [facility] Lidocaine/Prilocaine 1 applic 11/29/19 12:25 Emla - TP PRN PRN PAIN LEVEL 1 - 3 Losartan Potassium 100 mg 11/26/19 10:00 12/01/19 10:15 Cozaar - PO Not Given DAILY [facility] Methylprednisolone Sodium Succinate 40 mg 11/28/19 18:00 12/02/19 01:11 Solu-Medrol - IVPUSH 40 mg Q8H-IV JIMENEZ Administration Multivitamins/Minerals 10 ml 12/02/19 10:00 Infuvite Adult - IV DAILY [facility] Nicotine 21 mg 11/27/19 15:45 12/01/19 11:31 Nicoderm Patch - TD 21 mg DAILY [facility] Administration Nifedipine 90 mg 11/26/19 10:00 12/01/19 10:16 Procardia Xl - PO Not Given DAILY [facility] Nystatin 500,000 units 11/25/19 18:00 12/02/19 01:09 Nystatin Oral Suspension - PO Not Given Q6HPO [facility] Pantoprazole Sodium 40 mg 11/27/19 13:00 12/01/19 10:53 Protonix - PO Not Given DAILY [facility] Sevelamer Carbonate 1,600 mg 11/25/19 17:30 12/01/19 18:14 Renvela - PO Not Given TIDCM [facility] Simethicone 80 mg 11/28/19 22:15 12/01/19 22:10 Mylicon - PO 80 mg QID JIMENEZ Administration CBC, BMP 12/02/19 05:40 12/02/19 05:40 ASSESSMENT/PLAN: 69 y/o M, pmh of HIV, throat cancer s/p radiation at [place], COPD not on home O2, ESRD (on dialysis M/W/F), cardiac arreswt x4 (last arrest was last month), presented to the ED because of SOB. #Acute copd exacerbation * improving , cont Sulomedrol and broncho dilators # Dysphagia , pharyngeal phase for solid and liquids 2/2 radiation therapy * seen by ENT with no mass or lesion noted possible infection * MBS done with high risk of aspiration recommend npo * will start clinimix for now and if no improvement will benifit from PEG tube placement and pt ofelia like to do any thing to prolonged his life (planned for Friday ) * CT of neck shows multiple hypodense thyroid nodules - will need US as outpatient * HOLD ASA for 7 days for PEG next week Friday per IR * NGT placed * ENT evaluation appreciated - laryngoscopy showed coating of thick yellow/ crusted material on endolarynx #Oral thrush * ID consulted * cont Diflucan 10 mg po daily through NGT #ESRD * Nephrology consulted: Dr. Pereyra * HD today 2.5 leter removed * next HD friday #HIV * last CD4 in 600s 11/16/2019 * Resume pts home meds #Throat Ca s/p radiation * w/ underlying dysphagia, mucositic changes in throat * cover for oral candidiasis w/ oral fluconazole 200mg * Heme Onc evaluation for mucositis #LORNA Lung lesion # COPD * bronchodilators * Sulo-medrol 40 Q 8hr * Pulmonary consulted primary vs mets. CT Chest 11/03- severe COPD, no consolidation, Tiny cavity in LORNA 7mm w/ mild thickening and questionable, b/l posterior CV pleural effusion. Cardiomegaly mild, aneurysmal dilation of ascending aorta 4.5cm in AP dimension. Exophytic left renal pole cyst and indeterminate exophytic lesion on right mid kidney laterally as well as posteriorly 1.6 and .8 cm. #HTN, uncontrolled * cont labetolol, nefidipine losartan * add clonidine patch and Hydralizin IV PRN due to uncontrolled BP * monitor closely #Depression/Anxiety * continue Celexa. # nicotine dependence cont nicotin patch #HLD * Continue Statin. # H/O cardiac arrest #DVT ppx * Heparin SQ. 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 - New Patient This patient is new to me today: No - Critical Care Critical Care patient: No - Discharge Referral Referred to [facility] Med [facility] No ATTENDING PHYSICIAN STATEMENT I saw and evaluated the patient. I reviewed the resident's note and discussed the case with the resident. I agree with the resident's findings and plan as documented. SUBJECTIVE: OBJECTIVE: ASSESSMENT AND PLAN:
[2019-12-02] MEDS: HEPARIN NA (PORCINE) 5,000 UNITS/ML 1ML VIAL SQ SCH ×3 (06:29→22:39)
[2019-12-02 06:47] LABS: HEMATOCRIT 40.2 % (35.4-49); HEMOGLOBIN 13.3 GM/dL (11.7-16.9); LYMPH % 4.1 % (8-40); MCH 33.2 pg (25.7-33.7); MCHC 33.2 g/dl (32.0-35.9); MEAN CELL VOLUME 100.2 fl (80-96); MEAN PLT VOLUME 8.5 fl (7.5-11.1); MONO % 3.3 % (3.8-10.2); NEUT % 92.6 % (42.8-82.8); PLATELET COUNT 188 K/MM3 (134-434); RBC 4.01 M/mm3 (4.00-5.60); RDW 17.2 % (11.9-15.9); WHITE BLOOD COUNT 7.6 K/mm3 (4.0-10.0)
[2019-12-02 07:20] LABS: ALBUMIN 2.7 g/dl (3.4-5.0); BILIRUBIN,TOTAL 0.6 mg/dL (0.2-1); CALCIUM 9.3 mg/dL (8.5-10.1); CREATININE 6.9 mg/dL (0.55-1.3); POTASSIUM 4.2 mmol/L (3.5-5.1); TOT PROT 6.8 g/dl (6.4-8.2)
[2019-12-02 07:43] LABS: PROTHROMBIN TIME (PATIENT) 11.8 SEC (9.7-13.0)
[2019-12-02] MEDS: ALBUTEROL SO4 2.5/IPRATROPIUM 0.5 INH SOL 3 ML VIAL.NEB. NEB SCH ×4 (08:00→22:40)
[2019-12-02] MEDS: SEVELAMER CARBONATE 800 MG TAB (FP) PO SCH ×2 (08:57→11:36)
[2019-12-02 10:02] LABS: ANISOCYTOSIS 1+; MACROCYTOSIS 1+; PLATELET ESTIMATE NORMAL
--- NOTE | 2019-12-02 10:45 | PN ---
Progress Note, Physician History of Present Illness: pulmonary alert,less congested ,+ cough - Current Medication List Current Medications: Active Medications Abacavir Sulfate (Ziagen -) 300 mg PO BID [facility] Last Admin: 12/01/19 22:11 Dose: 300 mg Acetaminophen (Tylenol -) 650 mg PO Q6H PRN PRN Reason: PAIN LEVEL 6-10 Last Admin: 12/01/19 17:47 Dose: 650 mg Albuterol Sulfate (Ventolin 0.083% Nebulizer Soln -) 1 amp NEB Q4H PRN PRN Reason: SHORT OF BREATH/WHEEZING Last Admin: 11/28/19 00:30 Dose: 1 amp Albuterol/Ipratropium (Duoneb -) 1 amp NEB RQID [facility] Last Admin: 12/02/19 08:00 Dose: 1 amp Benzocaine/Menthol (Cepacol Lozenge -) 1 each MM PRN PRN PRN Reason: SORE THROAT Last Admin: 11/26/19 02:40 Dose: 1 each Citalopram Hydrobromide (Celexa -) 10 mg PO DAILY [facility] Last Admin: 12/01/19 10:14 Dose: Not Given Clonidine HCl (Catapres Tts Patch -) 0.1 mg TD We@1000 [facility] Famotidine (Pepcid -) 20 mg PO HS [facility] Last Admin: 12/01/19 22:09 Dose: 20 mg Fluconazole (Diflucan -) 100 mg PO DAILY [facility] Last Admin: 12/01/19 10:15 Dose: Not Given Heparin Sodium (Porcine) (Heparin -) 5,000 unit SQ TID [facility] Stop: 12/06/19 22:00 Last Admin: 12/02/19 06:29 Dose: 5,000 unit Sodium Chloride (Normal Saline -) 250 mls @ 3,000 mls/hr IV PRN PRN PRN Reason: Hypotension during Dialysis Amino Acids (Clinimix -) 1,000 mls @ 84 mls/hr IV Q12H [facility] Last Admin: 12/01/19 23:00 Dose: 84 mls/hr Fat Emulsion Intravenous (Intralipid -) 250 mls @ 20.833 mls/hr IV DAILY@2200 [facility] Last Admin: 12/01/19 22:11 Dose: 20.833 mls/hr Labetalol HCl (Normodyne -) 300 mg PO BID [facility] Last Admin: 12/01/19 22:09 Dose: 300 mg Lamivudine (Epivir Oral Solution -) 50 mg PO DAILY [facility] Last Admin: 11/30/19 09:41 Dose: 50 mg Lidocaine/Aluminum/Magnesium/Simeth (Magic Mouthwash *Sjr Formula* -) 5 ml MM Q6HPO [facility] Last Admin: 12/02/19 06:38 Dose: Not Given Lidocaine/Prilocaine (Emla -) 1 applic TP PRN PRN PRN Reason: PAIN LEVEL 1 - 3 Losartan Potassium (Cozaar -) 100 mg PO DAILY [facility] Last Admin: 12/01/19 10:15 Dose: Not Given Methylprednisolone Sodium Succinate (Solu-Medrol -) 40 mg IVPUSH Q8H-IV [facility] Last Admin: 12/02/19 01:11 Dose: 40 mg Multivitamins/Minerals (Infuvite Adult -) 10 ml IV DAILY [facility] Nicotine (Nicoderm Patch -) 21 mg TD DAILY [facility] Last Admin: 12/01/19 11:31 Dose: 21 mg Nifedipine (Procardia Xl -) 90 mg PO DAILY [facility] Last Admin: 12/01/19 10:16 Dose: Not Given Nystatin (Nystatin Oral Suspension -) 500,000 units PO Q6HPO [facility] Last Admin: 12/02/19 06:39 Dose: Not Given Pantoprazole Sodium (Protonix -) 40 mg PO DAILY [facility] Last Admin: 12/01/19 10:53 Dose: Not Given Sevelamer Carbonate (Renvela -) 1,600 mg PO TIDCM [facility] Last Admin: 12/02/19 08:57 Dose: Not Given Simethicone (Mylicon -) 80 mg PO QID [facility] Last Admin: 12/01/19 22:10 Dose: 80 mg - Objective Vital Signs: Vital Signs Temperature 98 F 12/02/19 06:00 Pulse Rate 63 12/02/19 06:00 Respiratory Rate 18 12/02/19 06:00 Blood Pressure 162/74 12/02/19 06:00 O2 Sat by Pulse Oximetry (%) 98 12/01/19 22:00 Constitutional: Yes: Calm, Thin Eyes: Yes: WNL HENT: Yes: WNL Neck: Yes: WNL Cardiovascular: Yes: Regular Rate and Rhythm, S1, S2 Respiratory: Yes: Rhonchi (scattered bertin rhonchi) Gastrointestinal: Yes: Normal Bowel Sounds, Soft Extremities: Yes: WNL Edema: No Labs: CBC, BMP 12/02/19 05:40 12/02/19 05:40 INR, PTT INR 1.00 (0.83-1.09) 12/02/19 05:40 Assessment/Plan Problem List - Problems (1) COPD exacerbation Code(s): J44.1 - CHRONIC OBSTRUCTIVE PULMONARY DISEASE W (ACUTE) EXACERBATION (2) Anemia Code(s): D64.9 - ANEMIA, UNSPECIFIED Qualifiers: Anemia type: unspecified type Qualified Code(s): D64.9 - Anemia, unspecified (3) Anemia, chronic disease Code(s): D63.8 - ANEMIA IN OTHER CHRONIC DISEASES CLASSIFIED ELSEWHERE (4) CKD (chronic kidney disease) requiring chronic dialysis Code(s): N18.6 - END STAGE RENAL DISEASE; Z99.2 - DEPENDENCE ON RENAL DIALYSIS (5) End stage renal disease Code(s): N18.6 - END STAGE RENAL DISEASE (6) HIV (human immunodeficiency virus infection) Code(s): B20 - HUMAN IMMUNODEFICIENCY VIRUS [HIV] DISEASE (7) HTN (hypertension) Code(s): I10 - ESSENTIAL (PRIMARY) HYPERTENSION (8) Hyperlipidemia Code(s): E78.5 - HYPERLIPIDEMIA, UNSPECIFIED Qualifiers: (10) COPD exacerbation Code(s): J44.1 - CHRONIC OBSTRUCTIVE PULMONARY DISEASE W (ACUTE) EXACERBATION (11) Shortness of breath Code(s): R06.02 - SHORTNESS OF BREATH Medrol BD TX Standing and PRN Supplemental O2 as needed No smoking was counseled VTE prophylaxis HD per Renal ASPIRATION PRECAUTIONS DR MARK
[2019-12-02] MEDS: DOLUTEGRAVIR SODIUM 50 MG TABLET (NON-FORMULARY) PO SCH (11:07)
[2019-12-02] MEDS: lamiVUDine 10 MG/1 ML BULK BOTTLE PO SCH (11:07)
[2019-12-02] MEDS: FLUCONAZOLE 100 MG TABLET (UD) PO SCH (11:09)
[2019-12-02] MEDS: LOSARTAN POTASSIUM 50 MG TABLET (FP) PO SCH (11:09)
[2019-12-02] MEDS: CITALOPRAM HYDROBROMIDE 10 MG TABLET PO SCH (11:09)
[2019-12-02] MEDS: SIMETHICONE 80 MG TAB.CHEW (FP) PO SCH ×4 (11:09→22:38)
[2019-12-02] MEDS: LABETALOL HCL 100 MG TABLET (FP) PO SCH ×2 (11:09→22:37)
[2019-12-02] MEDS: ABACAVIR SULFATE 300 MG TABLET PO SCH ×2 (11:10→23:13)
[2019-12-02] MEDS: NICOTINE 21 MG/24 HOURS TOPICAL PATCH TD SCH (11:10)
[2019-12-02] MEDS: PANTOPRAZOLE 40 MG TABLET PO SCH (11:12)
[2019-12-02] MEDS: NIFEdipine E.R. 90 MG TABLET PO SCH (11:12)
[2019-12-02] MEDS ORDERED: SODIUM CHLORIDE 250 ML IV PRN ×2 (11:41→15:58)
[2019-12-02] MEDS ORDERED: SEVELAMER CARBONATE 0.8 GM POWDER PACKET PO SCH ×2 (13:53→14:03)
[2019-12-02] MEDS: MULTIVIT INJ. ADULT COMBO WITH VIT K 1 COMBO 10 ML VIAL IV SCH (15:49)
[2019-12-02] MEDS: AMINO ACIDS 4.25%/D5W 1,000 ML IV SCH (15:49)
--- NOTE | 2019-12-02 15:54 | PN ---
Progress Note (short form) - Note Progress Note: Renal follow up for ERSD on HD Seen and examined at the bedside awake and alert throat pain is improved no chest pain or sob still has a lot of secretion no fever, chills, N/V/D NGT is in place Vital Signs Temperature 97.7 F 12/02/19 14:00 Pulse Rate 67 12/02/19 14:00 Respiratory Rate 18 12/02/19 06:00 Blood Pressure 159/85 12/02/19 14:00 O2 Sat by Pulse Oximetry (%) 98 12/01/19 22:00 Intake & Output 11/29/19 11/30/19 12/01/19 12/02/19 23:59 23:59 23:59 23:59 Intake Total 1645 142 0432 840 Output Total 3200 3000 Balance -2200 760 -1690 840 Weight 69.944 kg 70.398 kg 73.119 kg NAD awake and alert neck supple RRR Dec BS bilateral lung allred, no wheeze soft NT/ND no LE edema CBC, BMP 12/01/19 07:00 12/01/19 07:17 Current Medications Abacavir Sulfate (Ziagen -) 300 mg PO BID [facility] Last Admin: 11/30/19 21:27 Dose: 300 mg Acetaminophen (Tylenol -) 650 mg PO Q6H PRN PRN Reason: PAIN LEVEL 6-10 Last Admin: 11/29/19 11:46 Dose: 650 mg Albuterol Sulfate (Ventolin 0.083% Nebulizer Soln -) 1 amp NEB Q4H PRN PRN Reason: SHORT OF BREATH/WHEEZING Last Admin: 11/28/19 00:30 Dose: 1 amp Albuterol/Ipratropium (Duoneb -) 1 amp NEB RQID [facility] Last Admin: 12/01/19 12:11 Dose: 1 amp Benzocaine/Menthol (Cepacol Lozenge -) 1 each MM PRN PRN PRN Reason: SORE THROAT Last Admin: 11/26/19 02:40 Dose: 1 each Citalopram Hydrobromide (Celexa -) 10 mg PO DAILY [facility] Last Admin: 11/30/19 09:40 Dose: 10 mg Famotidine (Pepcid -) 20 mg PO HS [facility] Last Admin: 11/30/19 21:26 Dose: 20 mg Fluconazole (Diflucan -) 100 mg PO DAILY [facility] Last Admin: 11/30/19 09:38 Dose: 100 mg Heparin Sodium (Porcine) (Heparin -) 5,000 unit SQ TID [facility] Stop: 12/06/19 22:00 Last Admin: 12/01/19 05:07 Dose: 5,000 unit Sodium Chloride (Normal Saline -) 250 mls @ 3,000 mls/hr IV PRN PRN PRN Reason: Hypotension during Dialysis Amino Acids (Clinimix -) 1,000 mls @ 84 mls/hr IV Q12H [facility] Last Admin: 12/01/19 00:46 Dose: 84 mls/hr Labetalol HCl (Normodyne -) 300 mg PO BID [facility] Last Admin: 11/30/19 21:26 Dose: 300 mg Lamivudine (Epivir Oral Solution -) 50 mg PO DAILY [facility] Last Admin: 11/30/19 09:41 Dose: 50 mg Lidocaine/Aluminum/Magnesium/Simeth (Magic Mouthwash *Sjr Formula* -) 5 ml MM Q6HPO [facility] Last Admin: 12/01/19 05:08 Dose: 5 ml Lidocaine/Prilocaine (Emla -) 1 applic TP PRN PRN PRN Reason: PAIN LEVEL 1 - 3 Losartan Potassium (Cozaar -) 100 mg PO DAILY [facility] Last Admin: 11/30/19 09:39 Dose: 100 mg Methylprednisolone Sodium Succinate (Solu-Medrol -) 40 mg IVPUSH Q8H-IV [facility] Last Admin: 12/01/19 11:32 Dose: 40 mg Nicotine (Nicoderm Patch -) 21 mg TD DAILY [facility] Last Admin: 12/01/19 11:31 Dose: 21 mg Nifedipine (Procardia Xl -) 90 mg PO DAILY [facility] Last Admin: 11/30/19 09:39 Dose: 90 mg Nystatin (Nystatin Oral Suspension -) 500,000 units PO Q6HPO [facility] Last Admin: 12/01/19 05:08 Dose: 500,000 units Pantoprazole Sodium (Protonix -) 40 mg PO DAILY [facility] Last Admin: 11/30/19 09:38 Dose: 40 mg Sevelamer Carbonate (Renvela -) 1,600 mg PO TIDCM [facility] Last Admin: 11/30/19 18:04 Dose: 1,600 mg Simethicone (Mylicon -) 80 mg PO QID [facility] Last Admin: 11/30/19 21:26 Dose: 80 mg 69 year old male with pmhx of esrd, hiv, copd, and cardiac arrest who presents to the ER with shortness of breath. 1. ESRD on HD 2. Shortness of breath 3. Throat pain/fullness/dysphagia 4. COPD 5. HIV 6. Anemia in CKD 7. Renal Osteodystrophy 8. High Aspiration risk No acute need for dialysis today, next planned dialysis is tomorrow currently NPO due to high aspiration risk. Pt has had several hospital admissions over the past year for respiratory failure and they could have been precipitated by aspiration Continue steroids and diflucan for thrush BUN high due to steroids and not a reflection of uremia Trey Pereyra DO
--- NOTE | 2019-12-02 16:54 | PN ---
Progress Note, UNPAID INTERN - Note Progress Note: 69 yo male seen at bedside for follow up to MBS with recommendations for NPO. Pt was aspirating pureed solids and liquids during procedure. NGT in place. Patient cough appears better today. Aphonic voice still persist. Pt wants to start restorative swallow therapy once lungs are strong enough. UNPAID INTERN will continue to monitor.
[2019-12-02] MEDS: SEVELAMER CARBONATE 0.8 GM POWDER PACKET GT SCH (17:08)
[2019-12-02] MEDS ORDERED: MELATONIN 5 MG TABLETS PO PRN (22:00)
[2019-12-02] MEDS: FAMOTIDINE 20 MG TABLET PO SCH (22:39)
[2019-12-02] MEDS: FAT EMULSIONS 250 ML IV SCH (23:13)
--- NOTE | 2019-12-03 03:15 | PN ---
Progress Note (short form) - Note Progress Note: Received page from nursing staff that patient coughed up NGT. Attempts at replacing NGT unsuccessful due to patient combativeness.
[2019-12-03] MEDS: NYSTATIN 500,000 UNITS/5 ML SUSPENSION PO SCH ×3 (03:43→18:21)
[2019-12-03] MEDS: MAG HYDROX/ALH/SMC/DPHA/LIDO 240 ML MOUTHWASH MM SCH ×3 (03:43→18:21)
[2019-12-03] MEDS: methylPREDNISolone NA SUCC 40 MG/1 ML VIAL IVPUSH SCH ×3 (03:43→18:21)
[2019-12-03] MEDS: ABACAVIR SULFATE 300 MG TABLET PO SCH ×3 (03:44→23:41)
--- NOTE | 2019-12-03 06:28 | PN ---
Physical Exam: SUBJECTIVE: Patient seen and examined at bed side, his BP better controlled , we start him on clonidin patch , can use labetol iv or hydralyzin IV PRN tolerating HD denies any fever, chills, N/V/D/C hold asa for 7 days for exepected PEG next friday hold Heparin SC the night before procedure His X at bed side would like to be informed before procedure at [facility]# karan shaw and pt agree with that repeat MBS friday to see if there is any improvement before PEG NGT sludged over night and replaced this am OBJECTIVE: Vital Signs Period Temp Pulse Resp BP Sys/Montes Pulse Ox Last 24 Hr 97.7 F-98 F 64-78 15-18 143-182/78-90 97-98 GENERAL: AAOx3 in NAD , with muffled voice , NGT in place HEAD: NC/AT EYES: EOMI, Conjunctiva clear, sclera anicteric ENT: dry mucous membrane NECK: Supple, no JVD, LUNGS: diffuse wheezing HEART: RRR, , normal s1, s2, murmur no M/R/G ABDOMEN: Soft, ND, NT, +BS 4 Q, no CVA Tenderness LOWER EXTREMITIES: no edema, +2DP pulse, NEUROLOGICAL: No focal deficit. Normal speech. gait not observed. PSYCHIATRIC: Cooperative. Good eye contact. Appropriate mood and affect. SKIN: Warm, dry, Laboratory Results - last 24 hr 12/02/19 12/02/19 12/02/19 05:40 05:40 05:40 WBC 7.6 RBC 4.01 Hgb 13.3 Hct 40.2 MCV 100.2 H MCH 33.2 MCHC 33.2 RDW 17.2 H Plt Count 188 MPV 8.5 Absolute Neuts (auto) 7.1 Neutrophils % 92.6 H Neutrophils % (Manual) 87.0 H Band Neutrophils % 0.0 Lymphocytes % 4.1 L D Lymphocytes % (Manual) 5.0 L D Monocytes % 3.3 L Monocytes % (Manual) 7 D Eosinophils % 0.0 Eosinophils % (Manual) 0.0 Basophils % 0.0 Basophils % (Manual) 0.0 Myelocytes % (Man) 0 Promyelocytes % (Man) 0 Blast Cells % (Manual) 0 Nucleated RBC % 0 Metamyelocytes 0 Hypochromia 0 Platelet Estimate Normal Polychromasia 0 Poikilocytosis 0 Anisocytosis 1+ Microcytosis 0 Macrocytosis 1+ PT with INR 11.80 INR 1.00 Sodium 134 L Potassium 4.2 Chloride 94 L Carbon Dioxide 27 Anion Gap 13 BUN 69.0 H Creatinine 6.9 H Est GFR (CKD-EPI)AfAm 8.70 Est GFR (CKD-EPI)NonAf 7.50 Random Glucose 106 Calcium 9.3 Total Bilirubin 0.6 AST 9 L ALT 23 Alkaline Phosphatase 88 Total Protein 6.8 Albumin 2.7 L Active Medications Generic Name Dose Route Start Last Admin Trade Name Freq PRN Reason Stop Dose Admin Abacavir Sulfate 300 mg 11/25/19 22:00 12/03/19 03:44 Ziagen - PO 300 mg BID JIMENEZ Administration Acetaminophen 650 mg 11/25/19 19:40 12/01/19 17:47 Tylenol - PO 650 mg Q6H PRN Administration PAIN LEVEL 6-10 Albuterol Sulfate 1 amp 11/26/19 14:47 11/28/19 00:30 Ventolin 0.083% Nebulizer Soln - NEB 1 amp Q4H PRN Administration SHORT OF BREATH/WHEEZING Albuterol/Ipratropium 1 amp 11/26/19 16:00 12/02/19 22:40 Duoneb - NEB 1 amp RQID JIMENEZ Administration Benzocaine/Menthol 1 each 11/26/19 02:16 11/26/19 02:40 Cepacol Lozenge - MM 1 each PRN PRN Administration SORE THROAT Citalopram Hydrobromide 10 mg 11/26/19 10:00 12/02/19 11:09 Celexa - PO 10 mg DAILY JIMENEZ Administration Clonidine HCl 0.1 mg 12/08/19 10:00 Catapres Tts Patch - TD We@1000 JIMENEZ Famotidine 20 mg 11/25/19 22:00 12/02/19 22:39 Pepcid - PO 20 mg HS JIMENEZ Administration Fluconazole 100 mg 11/26/19 10:00 12/02/19 11:09 Diflucan - PO 100 mg DAILY JIMENEZ Administration Heparin Sodium (Porcine) 5,000 unit 11/25/19 22:00 12/02/19 22:39 Heparin - SQ 12/06/19 22:00 5,000 unit TID JIMENEZ Administration Heparin Sodium (Porcine) 300 unit 12/03/19 06:00 Heparin - IVPUSH 12/03/19 09:01 Q1H JIMENEZ Sodium Chloride 250 mls @ 3,000 mls/hr 11/26/19 14:00 Normal Saline - IV PRN PRN Hypotension during Dialysis Amino Acids 1,000 mls @ 84 mls/hr 11/30/19 22:15 12/02/19 15:49 Clinimix - IV 84 mls/hr Q12H JIMENEZ Administration Fat Emulsion Intravenous 250 mls @ 20.833 mls/hr 12/01/19 22:00 12/02/19 23: 13 Intralipid - IV 20.833 mls/hr DAILY@2200 JIMENEZ Administration Sodium Chloride 250 mls @ 3,000 mls/hr 12/02/19 15:59 Normal Saline - IV 12/03/19 15:59 PRN PRN Hypotension during Dialysis Labetalol HCl 300 mg 11/25/19 22:00 12/02/19 22:37 Normodyne - PO 300 mg BID JIMENEZ Administration Lamivudine 50 mg 11/26/19 10:00 12/02/19 11:07 Epivir Oral Solution - PO 50 mg DAILY JIMENEZ Administration Lidocaine/Aluminum/Magnesium/Simeth 5 ml 11/25/19 18:00 12/03/19 03:43 Magic Mouthwash *Sjr Formula* - MM 5 ml Q6HPO JIMENEZ Administration Lidocaine/Prilocaine 1 applic 11/29/19 12:25 Emla - TP PRN PRN PAIN LEVEL 1 - 3 Losartan Potassium 100 mg 11/26/19 10:00 12/02/19 11:09 Cozaar - PO 100 mg DAILY JIMENEZ Administration Melatonin 5 mg 12/02/19 22:00 Melatonin PO HS PRN INSOMNIA Methylprednisolone Sodium Succinate 40 mg 11/28/19 18:00 12/03/19 03:43 Solu-Medrol - IVPUSH 40 mg Q8H-IV JIMENEZ Administration Multivitamins/Minerals 10 ml 12/02/19 10:00 12/02/19 15:49 Infuvite Adult - IV 10 ml DAILY JIMENEZ Administration Nicotine 21 mg 11/27/19 15:45 12/02/19 11:10 Nicoderm Patch - TD 21 mg DAILY JIMENEZ Administration Nifedipine 90 mg 11/26/19 10:00 12/02/19 11:12 Procardia Xl - PO Not Given DAILY JIMENEZ Nystatin 500,000 units 11/25/19 18:00 12/03/19 03:43 Nystatin Oral Suspension - PO 500,000 units Q6HPO JIMENEZ Administration Pantoprazole Sodium 40 mg 12/03/19 10:00 Protonix Iv IVPUSH DAILY JIMENEZ Sevelamer Carbonate 1.6 gm 12/02/19 14:08 12/02/19 17:08 Renvela Powder Packet - GT 1.6 gm TIDCM JIMENEZ Administration Simethicone 80 mg 11/28/19 22:15 12/02/19 22:38 Mylicon - PO 80 mg QID JIMENEZ Administration CBC, BMP 12/03/19 06:05 12/03/19 06:05 ASSESSMENT/PLAN: 69 y/o M, pmh of HIV, throat cancer s/p radiation at [facility], COPD not on home O2, ESRD (on dialysis M/W/F), cardiac arreswt x4 (last arrest was last month), presented to the ED because of SOB. #Acute copd exacerbation * improving , cont Sulomedrol and broncho dilators # Dysphagia , pharyngeal phase for solid and liquids 2/2 radiation therapy * seen by ENT with no mass or lesion noted possible infection * MBS done with high risk of aspiration recommend npo * will start clinimix for now and if no improvement will benifit from PEG tube placement and pt ofelia like to do any thing to prolonged his life (planned for Friday ) * CT of neck shows multiple hypodense thyroid nodules - will need US as outpatient * HOLD ASA for 7 days for PEG next week Friday per IR * NGT placed * ENT evaluation appreciated - laryngoscopy showed coating of thick yellow/ crusted material on endolarynx * start Tube feeding * repeat MBS Friday to see if there s any improvement #Oral thrush * ID consulted * cont Diflucan 10 mg po daily through NGT #ESRD * Nephrology consulted: Dr. Pereyra * HD today 2.5 leter removed * next HD friday #HIV * last CD4 in 600s 11/16/2019 * Resume pts home meds #Throat Ca s/p radiation * w/ underlying dysphagia, mucositic changes in throat * cover for oral candidiasis w/ oral fluconazole 200mg * Heme Onc evaluation for mucositis #LORNA Lung lesion # COPD * bronchodilators * Sulo-medrol 40 Q 8hr * Pulmonary consulted primary vs mets. CT Chest 11/03- severe COPD, no consolidation, Tiny cavity in LORNA 7mm w/ mild thickening and questionable, b/l posterior CV pleural effusion. Cardiomegaly mild, aneurysmal dilation of ascending aorta 4.5cm in AP dimension. Exophytic left renal pole cyst and indeterminate exophytic lesion on right mid kidney laterally as well as posteriorly 1.6 and .8 cm. #HTN, uncontrolled * cont labetolol, nefidipine losartan * add clonidine patch and Hydralizin IV PRN due to uncontrolled BP * monitor closely #Depression/Anxiety * continue Celexa. # nicotine dependence cont nicotin patch #HLD * Continue Statin. # H/O cardiac arrest #DVT ppx * Heparin SQ. hold night before procedure * hold the night before PEG tune # GI proph PPI # NGT placed for mediciation , started on clinimix and infuvit 10 ml and lipid sper forepart laster # For PEG Tube next Friday Visit type - Emergency Visit Emergency Visit: Yes ED Registration Date: 11/25/19 Care time: The patient presented to the Emergency Department on the above date and was hospitalized for further evaluation of their emergent condition. - New Patient This patient is new to me today: No - Critical Care Critical Care patient: No ATTENDING PHYSICIAN STATEMENT I saw and evaluated the patient. I reviewed the resident's note and discussed the case with the resident. I agree with the resident's findings and plan as documented. SUBJECTIVE: OBJECTIVE: ASSESSMENT AND PLAN:
[2019-12-03 07:37] LABS: BASO % 0.1 % (0-2.0); HEMATOCRIT 37.5 % (35.4-49); HEMOGLOBIN 12.4 GM/dL (11.7-16.9); MEAN CELL VOLUME 99.8 fl (80-96); MEAN PLT VOLUME 9.2 fl (7.5-11.1); MONO % 4.6 % (3.8-10.2); NEUT % 90.3 % (42.8-82.8); PLATELET COUNT 189 K/MM3 (134-434); RBC 3.75 M/mm3 (4.00-5.60); RDW 16.8 % (11.9-15.9); WHITE BLOOD COUNT 6.2 K/mm3 (4.0-10.0)
[2019-12-03] MEDS: ALBUTEROL SO4 2.5/IPRATROPIUM 0.5 INH SOL 3 ML VIAL.NEB. NEB SCH ×4 (08:00→20:34)
[2019-12-03] MEDS: SEVELAMER CARBONATE 0.8 GM POWDER PACKET GT SCH ×3 (08:30→18:10)
[2019-12-03 08:32] LABS: ALBUMIN 2.5 g/dl (3.4-5.0); BILIRUBIN,TOTAL 0.7 mg/dL (0.2-1); CALCIUM 8.9 mg/dL (8.5-10.1); MAGNESIUM 2.2 mg/dL (1.8-2.4); PHOSPHOROUS 8.4 mg/dL (2.5-4.9); POTASSIUM 4.7 mmol/L (3.5-5.1); TOT PROT 5.9 g/dl (6.4-8.2)
[2019-12-03 08:34] LABS: BLOOD UREA NITROGEN 117.2 mg/dL (7-18)
[2019-12-03 08:35] LABS: CREATININE 9.4 mg/dL (0.55-1.3)
[2019-12-03] MEDS ORDERED: PT OWN MED DRAWER 7, Y5N ONE ×2 (10:40→14:22)
[2019-12-03] MEDS: NICOTINE 21 MG/24 HOURS TOPICAL PATCH TD SCH (10:47)
[2019-12-03] MEDS: PANTOPRAZOLE SODIUM 40 MG VIAL IVPUSH SCH (10:53)
[2019-12-03] MEDS: DOLUTEGRAVIR SODIUM 50 MG TABLET (NON-FORMULARY) PO SCH (10:54)
[2019-12-03] MEDS: lamiVUDine 10 MG/1 ML BULK BOTTLE PO SCH (10:54)
[2019-12-03] MEDS: CITALOPRAM HYDROBROMIDE 10 MG TABLET PO SCH (10:55)
[2019-12-03] MEDS: FLUCONAZOLE 100 MG TABLET (UD) PO SCH (10:55)
[2019-12-03] MEDS: LOSARTAN POTASSIUM 50 MG TABLET (FP) PO SCH (10:55)
[2019-12-03] MEDS: SIMETHICONE 80 MG TAB.CHEW (FP) PO SCH ×4 (10:55→23:41)
[2019-12-03] MEDS: NIFEdipine E.R. 90 MG TABLET PO SCH (10:55)
[2019-12-03] MEDS: LABETALOL HCL 100 MG TABLET (FP) PO SCH ×2 (10:55→23:41)
--- NOTE | 2019-12-03 11:12 | PN ---
Progress Note, Physician History of Present Illness: pulmonary alert,feeling better,less throat discomfort,sob improving - Current Medication List Current Medications: Active Medications Abacavir Sulfate (Ziagen -) 300 mg PO BID [facility] Last Admin: 12/03/19 10:55 Dose: Not Given Acetaminophen (Tylenol -) 650 mg PO Q6H PRN PRN Reason: PAIN LEVEL 6-10 Last Admin: 12/01/19 17:47 Dose: 650 mg Albuterol Sulfate (Ventolin 0.083% Nebulizer Soln -) 1 amp NEB Q4H PRN PRN Reason: SHORT OF BREATH/WHEEZING Last Admin: 11/28/19 00:30 Dose: 1 amp Albuterol/Ipratropium (Duoneb -) 1 amp NEB RQID [facility] Last Admin: 12/03/19 08:00 Dose: 1 amp Benzocaine/Menthol (Cepacol Lozenge -) 1 each MM PRN PRN PRN Reason: SORE THROAT Last Admin: 11/26/19 02:40 Dose: 1 each Citalopram Hydrobromide (Celexa -) 10 mg PO DAILY [facility] Last Admin: 12/03/19 10:55 Dose: Not Given Clonidine HCl (Catapres Tts Patch -) 0.1 mg TD We@1000 JIMENEZ Famotidine (Pepcid -) 20 mg PO HS [facility] Last Admin: 12/02/19 22:39 Dose: 20 mg Fluconazole (Diflucan -) 100 mg PO DAILY [facility] Last Admin: 12/03/19 10:55 Dose: Not Given Heparin Sodium (Porcine) (Heparin -) 5,000 unit SQ TID [facility] Stop: 12/06/19 22:00 Last Admin: 12/02/19 22:39 Dose: 5,000 unit Heparin Sodium (Porcine) (Heparin -) 300 unit IVPUSH Q1H [facility] Stop: 12/03/19 09:01 Sodium Chloride (Normal Saline -) 250 mls @ 3,000 mls/hr IV PRN PRN PRN Reason: Hypotension during Dialysis Amino Acids (Clinimix -) 1,000 mls @ 84 mls/hr IV Q12H [facility] Last Admin: 12/02/19 15:49 Dose: 84 mls/hr Fat Emulsion Intravenous (Intralipid -) 250 mls @ 20.833 mls/hr IV DAILY@2200 [facility] Last Admin: 12/02/19 23:13 Dose: 20.833 mls/hr Sodium Chloride (Normal Saline -) 250 mls @ 3,000 mls/hr IV PRN PRN PRN Reason: Hypotension during Dialysis Stop: 12/03/19 15:59 Labetalol HCl (Normodyne -) 300 mg PO BID [facility] Last Admin: 12/03/19 10:55 Dose: Not Given Lamivudine (Epivir Oral Solution -) 50 mg PO DAILY [facility] Last Admin: 12/03/19 10:54 Dose: Not Given Lidocaine/Aluminum/Magnesium/Simeth (Magic Mouthwash *Sjr Formula* -) 5 ml MM Q6HPO [facility] Last Admin: 12/03/19 03:43 Dose: 5 ml Lidocaine/Prilocaine (Emla -) 1 applic TP PRN PRN PRN Reason: PAIN LEVEL 1 - 3 Losartan Potassium (Cozaar -) 100 mg PO DAILY [facility] Last Admin: 12/03/19 10:55 Dose: Not Given Melatonin (Melatonin) 5 mg PO HS PRN PRN Reason: INSOMNIA Methylprednisolone Sodium Succinate (Solu-Medrol -) 40 mg IVPUSH Q8H-IV [facility] Last Admin: 12/03/19 10:53 Dose: 40 mg Multivitamins/Minerals (Infuvite Adult -) 10 ml IV DAILY [facility] Last Admin: 12/02/19 15:49 Dose: 10 ml Nicotine (Nicoderm Patch -) 21 mg TD DAILY [facility] Last Admin: 12/03/19 10:47 Dose: 21 mg Nifedipine (Procardia Xl -) 90 mg PO DAILY [facility] Last Admin: 12/03/19 10:55 Dose: Not Given Nystatin (Nystatin Oral Suspension -) 500,000 units PO Q6HPO [facility] Last Admin: 12/03/19 03:43 Dose: 500,000 units Pantoprazole Sodium (Protonix Iv) 40 mg IVPUSH DAILY [facility] Last Admin: 12/03/19 10:53 Dose: 40 mg Sevelamer Carbonate (Renvela Powder Packet -) 1.6 gm GT TIDCM [facility] Last Admin: 12/03/19 08:30 Dose: Not Given Simethicone (Mylicon -) 80 mg PO QID [facility] Last Admin: 12/03/19 10:55 Dose: Not Given - Objective Vital Signs: Vital Signs Temperature 98 F 12/03/19 01:46 Pulse Rate 78 12/03/19 01:46 Respiratory Rate 18 12/03/19 01:46 Blood Pressure 143/85 12/03/19 01:46 O2 Sat by Pulse Oximetry (%) 97 12/02/19 21:00 Constitutional: Yes: Calm, Thin Eyes: Yes: WNL HENT: Yes: WNL Neck: Yes: WNL Cardiovascular: Yes: Regular Rate and Rhythm, S1, S2 Respiratory: Yes: Rhonchi (few rhonchi) Gastrointestinal: Yes: Normal Bowel Sounds, Soft Extremities: Yes: WNL Edema: No Labs: CBC, BMP 12/03/19 06:05 12/03/19 06:05 INR, PTT INR 1.00 (0.83-1.09) 12/02/19 05:40 Assessment/Plan Problem List - Problems (1) COPD exacerbation Code(s): J44.1 - CHRONIC OBSTRUCTIVE PULMONARY DISEASE W (ACUTE) EXACERBATION (2) Anemia Code(s): D64.9 - ANEMIA, UNSPECIFIED Qualifiers: Anemia type: unspecified type Qualified Code(s): D64.9 - Anemia, unspecified (3) Anemia, chronic disease Code(s): D63.8 - ANEMIA IN OTHER CHRONIC DISEASES CLASSIFIED ELSEWHERE (4) CKD (chronic kidney disease) requiring chronic dialysis Code(s): N18.6 - END STAGE RENAL DISEASE; Z99.2 - DEPENDENCE ON RENAL DIALYSIS (5) End stage renal disease Code(s): N18.6 - END STAGE RENAL DISEASE (6) HIV (human immunodeficiency virus infection) Code(s): B20 - HUMAN IMMUNODEFICIENCY VIRUS [HIV] DISEASE (7) HTN (hypertension) Code(s): I10 - ESSENTIAL (PRIMARY) HYPERTENSION (8) Hyperlipidemia Code(s): E78.5 - HYPERLIPIDEMIA, UNSPECIFIED Qualifiers: (10) COPD exacerbation Code(s): J44.1 - CHRONIC OBSTRUCTIVE PULMONARY DISEASE W (ACUTE) EXACERBATION (11) Shortness of breath Code(s): R06.02 - SHORTNESS OF BREATH Medrol BD TX Standing and PRN Supplemental O2 as needed No smoking was counseled VTE prophylaxis HD per Renal ASPIRATION PRECAUTIONS DR MARK
--- NOTE | 2019-12-03 12:17 | PN ---
Progress Note, [employer] - Note Progress Note: Severe dysphonia. Swallow palpated with reduced excursion. ENT performed Fiberoptic laryngoscopy 11/30. No gross masses or lesions, but the endolarynx appears to have a coating of thickened yellow/crusted material bilaterally. Piriform sinuses are clear. no base of tongue nor epiglottic lesions or masses seen. Finding: endolarynx superinfection/mucus possibly thrush MBS 11/30- aspiration on all trials. Per pt, he was able to tolerate reg diet/thin liquids without difficulty until this admission. Voice was Aphonic since RT tx 2 years ago. No h/o previous MBS or swallowing/speech tx. NGT was coughed out. On clinimix. SUggest- Reinsert NGT is planned Suggest NGT feedings to use gut Intensive Thrush mgmt Consider repeating MBS before PEG insertion for possible improvement of swallowing function
--- NOTE | 2019-12-03 14:08 | PN ---
Progress Note (short form) - Note Progress Note: Renal follow up for ERSD on HD Seen and examined during dialysis BP stable, UF goal 1.5L access with good function pt reports abd discomfort NGT was pulled out last night and could not be re-inserted no chest pain, sob, fever, chills, N/V/D no leg swelling Vital Signs Temperature 97.8 F 12/03/19 11:20 Pulse Rate 85 12/03/19 13:55 Respiratory Rate 18 12/03/19 13:55 Blood Pressure 148/71 12/03/19 13:55 O2 Sat by Pulse Oximetry (%) 97 12/02/19 21:00 Intake & Output 11/30/19 12/01/19 12/02/19 12/03/19 23:59 23:59 23:59 23:59 Intake Total 760 1310 840 200 Output Total 3000 Balance 760 -1690 840 200 Weight 70.398 kg 73.119 kg NAD awake and alert neck supple RRR Dec BS bilateral lung allred, no wheeze soft NT/ND no LE edema CBC, BMP 12/03/19 06:05 12/03/19 06:05 Current Medications Abacavir Sulfate (Ziagen -) 300 mg PO BID [facility] Last Admin: 12/03/19 10:55 Dose: Not Given Acetaminophen (Tylenol -) 650 mg PO Q6H PRN PRN Reason: PAIN LEVEL 6-10 Last Admin: 12/01/19 17:47 Dose: 650 mg Albuterol Sulfate (Ventolin 0.083% Nebulizer Soln -) 1 amp NEB Q4H PRN PRN Reason: SHORT OF BREATH/WHEEZING Last Admin: 11/28/19 00:30 Dose: 1 amp Albuterol/Ipratropium (Duoneb -) 1 amp NEB RQID [facility] Last Admin: 12/03/19 12:00 Dose: 1 amp Benzocaine/Menthol (Cepacol Lozenge -) 1 each MM PRN PRN PRN Reason: SORE THROAT Last Admin: 11/26/19 02:40 Dose: 1 each Citalopram Hydrobromide (Celexa -) 10 mg PO DAILY [facility] Last Admin: 12/03/19 10:55 Dose: Not Given Clonidine HCl (Catapres Tts Patch -) 0.1 mg TD We@1000 [facility] Famotidine (Pepcid -) 20 mg PO HS [facility] Last Admin: 12/02/19 22:39 Dose: 20 mg Fluconazole (Diflucan -) 100 mg PO DAILY [facility] Last Admin: 12/03/19 10:55 Dose: Not Given Heparin Sodium (Porcine) (Heparin -) 5,000 unit SQ TID [facility] Stop: 12/06/19 22:00 Last Admin: 12/02/19 22:39 Dose: 5,000 unit Heparin Sodium (Porcine) (Heparin -) 300 unit IVPUSH Q1H [facility] Stop: 12/03/19 14:31 Sodium Chloride (Normal Saline -) 250 mls @ 3,000 mls/hr IV PRN PRN PRN Reason: Hypotension during Dialysis Amino Acids (Clinimix -) 1,000 mls @ 84 mls/hr IV Q12H [facility] Last Admin: 12/02/19 15:49 Dose: 84 mls/hr Fat Emulsion Intravenous (Intralipid -) 250 mls @ 20.833 mls/hr IV DAILY@2200 [facility] Last Admin: 12/02/19 23:13 Dose: 20.833 mls/hr Labetalol HCl (Normodyne -) 300 mg PO BID [facility] Last Admin: 12/03/19 10:55 Dose: Not Given Lamivudine (Epivir Oral Solution -) 50 mg PO DAILY [facility] Last Admin: 12/03/19 10:54 Dose: Not Given Lidocaine/Aluminum/Magnesium/Simeth (Magic Mouthwash *Sjr Formula* -) 5 ml MM Q6HPO [facility] Last Admin: 12/03/19 12:03 Dose: Not Given Lidocaine/Prilocaine (Emla -) 1 applic TP PRN PRN PRN Reason: PAIN LEVEL 1 - 3 Losartan Potassium (Cozaar -) 100 mg PO DAILY [facility] Last Admin: 12/03/19 10:55 Dose: Not Given Melatonin (Melatonin) 5 mg PO HS PRN PRN Reason: INSOMNIA Methylprednisolone Sodium Succinate (Solu-Medrol -) 40 mg IVPUSH Q8H-IV [facility] Last Admin: 12/03/19 10:53 Dose: 40 mg Multivitamins/Minerals (Infuvite Adult -) 10 ml IV DAILY [facility] Last Admin: 12/02/19 15:49 Dose: 10 ml Nicotine (Nicoderm Patch -) 21 mg TD DAILY [facility] Last Admin: 12/03/19 10:47 Dose: 21 mg Nifedipine (Procardia Xl -) 90 mg PO DAILY [facility] Last Admin: 12/03/19 10:55 Dose: Not Given Nystatin (Nystatin Oral Suspension -) 500,000 units PO Q6HPO [facility] Last Admin: 12/03/19 12:03 Dose: Not Given Pantoprazole Sodium (Protonix Iv) 40 mg IVPUSH DAILY [facility] Last Admin: 12/03/19 10:53 Dose: 40 mg Sevelamer Carbonate (Renvela Powder Packet -) 1.6 gm GT TIDCM [facility] Last Admin: 12/03/19 12:04 Dose: Not Given Simethicone (Mylicon -) 80 mg PO QID [facility] Last Admin: 12/03/19 10:55 Dose: Not Given 69 year old male with pmhx of esrd, hiv, copd, and cardiac arrest who presents to the ER with shortness of breath. 1. ESRD on HD 2. Shortness of breath 3. Throat pain/fullness/dysphagia 4. COPD 5. HIV 6. Anemia in CKD 7. Renal Osteodystrophy 8. High Aspiration risk Tolerating dialysis well this am Pt has had several hospital admissions over the past year for respiratory failure and they could have been precipitated by aspiration Continue steroids and diflucan for thrush BUN high due to steroids and not a reflection of uremia Continue remainder of management as per primary team Trey Pereyra DO
[2019-12-03] MEDS: HEPARIN NA (PORCINE) 5,000 UNITS/ML 1ML VIAL SQ SCH ×2 (16:31→23:40)
[2019-12-03] MEDS: MULTIVIT INJ. ADULT COMBO WITH VIT K 1 COMBO 10 ML VIAL IV SCH (18:10)
[2019-12-03] MEDS: AMINO ACIDS 4.25%/D5W 1,000 ML IV SCH ×2 (18:36→23:39)
[2019-12-03] MEDS: FAT EMULSIONS 250 ML IV SCH (23:38)
[2019-12-03] MEDS: FAMOTIDINE 20 MG TABLET PO SCH (23:41)
[2019-12-04] MEDS: methylPREDNISolone NA SUCC 40 MG/1 ML VIAL IVPUSH SCH ×3 (02:54→18:10)
[2019-12-04] MEDS: NYSTATIN 500,000 UNITS/5 ML SUSPENSION PO SCH ×3 (07:05→18:16)
[2019-12-04 07:11] LABS: BASO % 0.1 % (0-2.0); HEMATOCRIT 39.4 % (35.4-49); HEMOGLOBIN 13.2 GM/dL (11.7-16.9); LYMPH % 3.9 % (8-40); MCH 33.6 pg (25.7-33.7); MCHC 33.6 g/dl (32.0-35.9); MEAN CELL VOLUME 99.9 fl (80-96); MEAN PLT VOLUME 9.2 fl (7.5-11.1); MONO % 5.8 % (3.8-10.2); NEUT % 90.2 % (42.8-82.8); PLATELET COUNT 188 K/MM3 (134-434); RBC 3.94 M/mm3 (4.00-5.60); RDW 16.6 % (11.9-15.9); WHITE BLOOD COUNT 6.1 K/mm3 (4.0-10.0)
[2019-12-04 07:40] LABS: ALBUMIN 2.8 g/dl (3.4-5.0); BILIRUBIN,TOTAL 0.5 mg/dL (0.2-1); BLOOD UREA NITROGEN 68.7 mg/dL (7-18); CALCIUM 8.7 mg/dL (8.5-10.1); CREATININE 6.8 mg/dL (0.55-1.3); POTASSIUM 4.1 mmol/L (3.5-5.1); TOT PROT 6.5 g/dl (6.4-8.2)
[2019-12-04] MEDS: ALBUTEROL SO4 2.5/IPRATROPIUM 0.5 INH SOL 3 ML VIAL.NEB. NEB SCH ×4 (07:50→20:59)
[2019-12-04] MEDS: SEVELAMER CARBONATE 0.8 GM POWDER PACKET GT SCH ×3 (08:30→18:16)
[2019-12-04] MEDS ORDERED: PT OWN MED DRAWER 7, Y5N ONE ×3 (10:03→18:18)
[2019-12-04] MEDS: PANTOPRAZOLE SODIUM 40 MG VIAL IVPUSH SCH (10:49)
[2019-12-04] MEDS: CITALOPRAM HYDROBROMIDE 10 MG TABLET PO SCH (10:50)
[2019-12-04] MEDS: DOLUTEGRAVIR SODIUM 50 MG TABLET (NON-FORMULARY) PO SCH (10:50)
[2019-12-04] MEDS: FLUCONAZOLE 100 MG TABLET (UD) PO SCH (10:50)
[2019-12-04] MEDS: lamiVUDine 10 MG/1 ML BULK BOTTLE PO SCH (10:50)
[2019-12-04] MEDS: LOSARTAN POTASSIUM 50 MG TABLET (FP) PO SCH (10:50)
[2019-12-04] MEDS: AMINO ACIDS 4.25%/D5W 1,000 ML IV SCH (10:50)
[2019-12-04] MEDS: MULTIVIT INJ. ADULT COMBO WITH VIT K 1 COMBO 10 ML VIAL IV SCH (10:51)
[2019-12-04] MEDS: NIFEdipine E.R. 90 MG TABLET PO SCH (10:51)
[2019-12-04] MEDS: ABACAVIR SULFATE 300 MG TABLET PO SCH (10:51)
[2019-12-04] MEDS: SIMETHICONE 80 MG TAB.CHEW (FP) PO SCH ×3 (10:51→18:16)
[2019-12-04] MEDS: NICOTINE 21 MG/24 HOURS TOPICAL PATCH TD SCH (10:51)
[2019-12-04] MEDS: LABETALOL HCL 100 MG TABLET (FP) PO SCH (10:51)
--- NOTE | 2019-12-04 13:17 | PN ---
Progress Note (short form) - Note Progress Note: Breathing feels overall better. Still with significant hoarseness of voice. Intake & Output 12/01/19 12/02/19 12/03/19 12/04/19 23:59 23:59 23:59 23:59 Intake Total 7497 033 3108 Output Total 3000 2000 Balance -1690 840 -242 Weight 161 lb 3.2 oz Last Vital Signs Temp Pulse Resp BP Pulse Ox 97.6 F 68 20 163/78 97 12/04/19 10:00 12/04/19 10:00 12/04/19 10:00 12/04/19 10:00 12/03/19 10:00 Active Medications Abacavir Sulfate (Ziagen -) 300 mg PO BID [facility] Last Admin: 12/04/19 10:51 Dose: Not Given Acetaminophen (Tylenol -) 650 mg PO Q6H PRN PRN Reason: PAIN LEVEL 6-10 Last Admin: 12/01/19 17:47 Dose: 650 mg Albuterol Sulfate (Ventolin 0.083% Nebulizer Soln -) 1 amp NEB Q4H PRN PRN Reason: SHORT OF BREATH/WHEEZING Last Admin: 11/28/19 00:30 Dose: 1 amp Albuterol/Ipratropium (Duoneb -) 1 amp NEB RQID [facility] Last Admin: 12/04/19 11:57 Dose: 1 amp Benzocaine/Menthol (Cepacol Lozenge -) 1 each MM PRN PRN PRN Reason: SORE THROAT Last Admin: 11/26/19 02:40 Dose: 1 each Citalopram Hydrobromide (Celexa -) 10 mg PO DAILY [facility] Last Admin: 12/04/19 10:50 Dose: Not Given Clonidine HCl (Catapres Tts Patch -) 0.1 mg TD We@1000 [facility] Famotidine (Pepcid -) 20 mg PO HS [facility] Last Admin: 12/03/19 23:41 Dose: Not Given Fluconazole (Diflucan -) 100 mg PO DAILY [facility] Last Admin: 12/04/19 10:50 Dose: Not Given Heparin Sodium (Porcine) (Heparin -) 5,000 unit SQ TID [facility] Stop: 12/06/19 22:00 Last Admin: 12/03/19 23:40 Dose: 5,000 unit Sodium Chloride (Normal Saline -) 250 mls @ 3,000 mls/hr IV PRN PRN PRN Reason: Hypotension during Dialysis Amino Acids (Clinimix -) 1,000 mls @ 84 mls/hr IV Q12H [facility] Last Admin: 12/04/19 10:50 Dose: 84 mls/hr Fat Emulsion Intravenous (Intralipid -) 250 mls @ 20.833 mls/hr IV DAILY@2200 [facility] Last Admin: 12/03/19 23:38 Dose: 20.833 mls/hr Labetalol HCl (Normodyne -) 300 mg PO BID [facility] Last Admin: 12/04/19 10:51 Dose: Not Given Lamivudine (Epivir Oral Solution -) 50 mg PO DAILY [facility] Last Admin: 12/04/19 10:50 Dose: Not Given Lidocaine/Aluminum/Magnesium/Simeth (Magic Mouthwash *Sjr Formula* -) 5 ml MM Q6HPO [facility] Last Admin: 12/03/19 18:21 Dose: 5 ml Lidocaine/Prilocaine (Emla -) 1 applic TP PRN PRN PRN Reason: PAIN LEVEL 1 - 3 Losartan Potassium (Cozaar -) 100 mg PO DAILY [facility] Last Admin: 12/04/19 10:50 Dose: Not Given Melatonin (Melatonin) 5 mg PO HS PRN PRN Reason: INSOMNIA Methylprednisolone Sodium Succinate (Solu-Medrol -) 40 mg IVPUSH Q8H-IV [facility] Last Admin: 12/04/19 10:49 Dose: 40 mg Multivitamins/Minerals (Infuvite Adult -) 10 ml IV DAILY [facility] Last Admin: 12/04/19 10:51 Dose: Not Given Nicotine (Nicoderm Patch -) 21 mg TD DAILY [facility] Last Admin: 12/04/19 10:51 Dose: 21 mg Nifedipine (Procardia Xl -) 90 mg PO DAILY [facility] Last Admin: 12/04/19 10:51 Dose: Not Given Nystatin (Nystatin Oral Suspension -) 500,000 units PO Q6HPO [facility] Last Admin: 12/04/19 11:51 Dose: Not Given Pantoprazole Sodium (Protonix Iv) 40 mg IVPUSH DAILY [facility] Last Admin: 12/04/19 10:49 Dose: 40 mg Sevelamer Carbonate (Renvela Powder Packet -) 1.6 gm GT TIDCM [facility] Last Admin: 12/04/19 11:51 Dose: Not Given Simethicone (Mylicon -) 80 mg PO QID [facility] Last Admin: 12/04/19 10:51 Dose: Not Given Constitutional: Yes: NAD, Thin Eyes: Yes: WNL HENT: Yes: WNL Neck: Yes: WNL Cardiovascular: Yes: Regular Rate and Rhythm, S1, S2 Respiratory: Yes: few scattered rhonchi Gastrointestinal: Yes: Normal Bowel Sounds, Soft Extremities: Yes: WNL Edema: No Labs: Laboratory Results - last 24 hr 12/04/19 12/04/19 05:50 05:50 WBC 6.1 RBC 3.94 L Hgb 13.2 Hct 39.4 MCV 99.9 H MCH 33.6 MCHC 33.6 RDW 16.6 H Plt Count 188 MPV 9.2 Absolute Neuts (auto) 5.5 Neutrophils % 90.2 H Lymphocytes % 3.9 L D Monocytes % 5.8 Eosinophils % 0.0 Basophils % 0.1 Nucleated RBC % 0 Sodium 134 L Potassium 4.1 Chloride 94 L Carbon Dioxide 28 Anion Gap 11 BUN 68.7 H Creatinine 6.8 H Est GFR (CKD-EPI)AfAm 8.85 Est GFR (CKD-EPI)NonAf 7.64 Random Glucose 120 H Calcium 8.7 Total Bilirubin 0.5 AST 12 L ALT 22 Alkaline Phosphatase 86 Total Protein 6.5 Albumin 2.8 L Assessment/Plan Problem List - Problems (1) COPD exacerbation Code(s): J44.1 - CHRONIC OBSTRUCTIVE PULMONARY DISEASE W (ACUTE) EXACERBATION (2) Anemia Code(s): D64.9 - ANEMIA, UNSPECIFIED Qualifiers: Anemia type: unspecified type Qualified Code(s): D64.9 - Anemia, unspecified (3) Anemia, chronic disease Code(s): D63.8 - ANEMIA IN OTHER CHRONIC DISEASES CLASSIFIED ELSEWHERE (4) CKD (chronic kidney disease) requiring chronic dialysis Code(s): N18.6 - END STAGE RENAL DISEASE; Z99.2 - DEPENDENCE ON RENAL DIALYSIS (5) End stage renal disease Code(s): N18.6 - END STAGE RENAL DISEASE (6) HIV (human immunodeficiency virus infection) Code(s): B20 - HUMAN IMMUNODEFICIENCY VIRUS [HIV] DISEASE (7) HTN (hypertension) Code(s): I10 - ESSENTIAL (PRIMARY) HYPERTENSION (8) Hyperlipidemia Code(s): E78.5 - HYPERLIPIDEMIA, UNSPECIFIED Qualifiers: (9) COPD exacerbation Code(s): J44.1 - CHRONIC OBSTRUCTIVE PULMONARY DISEASE W (ACUTE) EXACERBATION (10) Shortness of breath Code(s): R06.02 - SHORTNESS OF BREATH PLAN: Wean Medrol BD [place] Standing and PRN Supplemental O2 as needed No smoking was counseled VTE prophylaxis HD per Renal Aspiration precautions Dr Schmidt Problem List - Problems (1) COPD exacerbation Code(s): J44.1 - CHRONIC OBSTRUCTIVE PULMONARY DISEASE W (ACUTE) EXACERBATION (2) Anemia Code(s): D64.9 - ANEMIA, UNSPECIFIED Qualifiers: Anemia type: unspecified type Qualified Code(s): D64.9 - Anemia, unspecified (3) Anemia, chronic disease Code(s): D63.8 - ANEMIA IN OTHER CHRONIC DISEASES CLASSIFIED ELSEWHERE (4) CKD (chronic kidney disease) requiring chronic dialysis Code(s): N18.6 - END STAGE RENAL DISEASE; Z99.2 - DEPENDENCE ON RENAL DIALYSIS (5) End stage renal disease Code(s): N18.6 - END STAGE RENAL DISEASE (6) HIV (human immunodeficiency virus infection) Code(s): B20 - HUMAN IMMUNODEFICIENCY VIRUS [HIV] DISEASE (7) HTN (hypertension) Code(s): I10 - ESSENTIAL (PRIMARY) HYPERTENSION (8) Hyperlipidemia Code(s): E78.5 - HYPERLIPIDEMIA, UNSPECIFIED Qualifiers: (10) COPD exacerbation Code(s): J44.1 - CHRONIC OBSTRUCTIVE PULMONARY DISEASE W (ACUTE) EXACERBATION (11) Shortness of breath Code(s): R06.02 - SHORTNESS OF BREATH
--- NOTE | 2019-12-04 13:49 | PN ---
<Jo Hawkins - Last Filed: 12/04/19 14:55> Physical Exam: SUBJECTIVE: Patient seen and examined at bedside this morning. No acute events overnight. NGT removed since yesterday. Multiple attempts has been done to place tube but dislodges. Patient refuses NGT placement for now. He reports feeling better today, and has no complaints. OBJECTIVE: Vital Signs Temperature 97.6 F 12/04/19 10:00 Pulse Rate 68 12/04/19 10:00 Respiratory Rate 20 12/04/19 10:00 Blood Pressure 163/78 12/04/19 10:00 O2 Sat by Pulse Oximetry (%) 95 12/04/19 09:00 GENERAL: The patient is awake, alert, and fully oriented, in no acute distress. HEAD: Normal with no signs of trauma. EYES: PERRLA, EOMI, sclera anicteric, conjunctiva clear. ENT:Dry mucous membranes. NECK: Trachea midline, full range of motion, supple. LUNGS: Decreased breath sound bilateral bases, scattered wheezing. HEART: Regular rate and rhythm, S1, S2 without murmur, rub or gallop. ABDOMEN: Soft, nontender, nondistended, normoactive bowel sounds. EXTREMITIES: 2+ pulses, warm, well-perfused, no edema. NEUROLOGICAL: Cranial nerves II through XII grossly intact. Normal speech. PSYCH: Normal mood, normal affect. SKIN: Warm, dry, normal turgor. Laboratory Results - last 24 hr 12/04/19 12/04/19 05:50 05:50 WBC 6.1 RBC 3.94 L Hgb 13.2 Hct 39.4 MCV 99.9 H MCH 33.6 MCHC 33.6 RDW 16.6 H Plt Count 188 MPV 9.2 Absolute Neuts (auto) 5.5 Neutrophils % 90.2 H Lymphocytes % 3.9 L D Monocytes % 5.8 Eosinophils % 0.0 Basophils % 0.1 Nucleated RBC % 0 Sodium 134 L Potassium 4.1 Chloride 94 L Carbon Dioxide 28 Anion Gap 11 BUN 68.7 H Creatinine 6.8 H Est GFR (CKD-EPI)AfAm 8.85 Est GFR (CKD-EPI)NonAf 7.64 Random Glucose 120 H Calcium 8.7 Total Bilirubin 0.5 AST 12 L ALT 22 Alkaline Phosphatase 86 Total Protein 6.5 Albumin 2.8 L Active Medications Generic Name Dose Route Start Last Admin Trade Name Freq PRN Reason Stop Dose Admin Abacavir Sulfate 300 mg 11/25/19 22:00 12/04/19 10:51 Ziagen - PO Not Given BID [facility] Acetaminophen 650 mg 11/25/19 19:40 12/01/19 17:47 Tylenol - PO 650 mg Q6H PRN Administration PAIN LEVEL 6-10 Albuterol Sulfate 1 amp 11/26/19 14:47 11/28/19 00:30 Ventolin 0.083% Nebulizer Soln - NEB 1 amp Q4H PRN Administration SHORT OF BREATH/WHEEZING Albuterol/Ipratropium 1 amp 11/26/19 16:00 12/04/19 11:57 Duoneb - NEB 1 amp RQID [facility] Administration Benzocaine/Menthol 1 each 11/26/19 02:16 11/26/19 02:40 Cepacol Lozenge - MM 1 each PRN PRN Administration SORE THROAT Citalopram Hydrobromide 10 mg 11/26/19 10:00 12/04/19 10:50 Celexa - PO Not Given DAILY [facility] Clonidine HCl 0.1 mg 12/08/19 10:00 Catapres Tts Patch - TD We@1000 [facility] Famotidine 20 mg 11/25/19 22:00 12/03/19 23:41 Pepcid - PO Not Given HS [facility] Fluconazole 100 mg 11/26/19 10:00 12/04/19 10:50 Diflucan - PO Not Given DAILY [facility] Heparin Sodium (Porcine) 5,000 unit 11/25/19 22:00 12/03/19 23:40 Heparin - SQ 12/06/19 22:00 5,000 unit TID [facility] Administration Sodium Chloride 250 mls @ 3,000 mls/hr 11/26/19 14:00 Normal Saline - IV PRN PRN Hypotension during Dialysis Amino Acids 1,000 mls @ 84 mls/hr 11/30/19 22:15 12/04/19 10:50 Clinimix - IV 84 mls/hr Q12H [facility] Administration Fat Emulsion Intravenous 250 mls @ 20.833 mls/hr 12/01/19 22:00 12/03/19 23: 38 Intralipid - IV 20.833 mls/hr DAILY@2200 [facility] Administration Labetalol HCl 300 mg 11/25/19 22:00 12/04/19 10:51 Normodyne - PO Not Given BID [facility] Lamivudine 50 mg 11/26/19 10:00 12/04/19 10:50 Epivir Oral Solution - PO Not Given DAILY [facility] Lidocaine/Aluminum/Magnesium/Simeth 5 ml 11/25/19 18:00 12/03/19 18:21 Magic Mouthwash *Sjr Formula* - MM 5 ml Q6HPO [facility] Administration Lidocaine/Prilocaine 1 applic 11/29/19 12:25 Emla - TP PRN PRN PAIN LEVEL 1 - 3 Losartan Potassium 100 mg 11/26/19 10:00 12/04/19 10:50 Cozaar - PO Not Given DAILY [facility] Melatonin 5 mg 12/02/19 22:00 Melatonin PO HS PRN INSOMNIA Methylprednisolone Sodium Succinate 40 mg 11/28/19 18:00 12/04/19 10:49 Solu-Medrol - IVPUSH 40 mg Q8H-IV [facility] Administration Multivitamins/Minerals 10 ml 12/02/19 10:00 12/04/19 10:51 Infuvite Adult - IV Not Given DAILY [facility] Nicotine 21 mg 11/27/19 15:45 12/04/19 10:51 Nicoderm Patch - TD 21 mg DAILY [facility] Administration Nifedipine 90 mg 11/26/19 10:00 12/04/19 10:51 Procardia Xl - PO Not Given DAILY [facility] Nystatin 500,000 units 11/25/19 18:00 12/04/19 11:51 Nystatin Oral Suspension - PO Not Given Q6HPO [facility] Pantoprazole Sodium 40 mg 12/03/19 10:00 12/04/19 10:49 Protonix Iv IVPUSH 40 mg DAILY [facility] Administration Sevelamer Carbonate 1.6 gm 12/02/19 14:08 12/04/19 11:51 Renvela Powder Packet - GT Not Given TIDCM [facility] Simethicone 80 mg 11/28/19 22:15 12/04/19 10:51 Mylicon - PO Not Given QID [facility] ASSESSMENT/PLAN: Patient is a 69 year old male with a history of HTN, hyperlipidemia, COPD, cardiac arrest, ESRD, HIV, throat cancer, depression, anxiety who presented to the ED with SOB. #Acute COPD exacerbation -improving -continue solumedrol -continue duonebs standing and prn -supplemental oxygen as needed #Dysphagia 2/2 to mucositis/pharyngitis, RT for throat cancer -schedule for PEG tube on -Evaluated by speech and swallow, Recs appreciated -for MBS on friday, prior to PEG tube placement -NPO for now, aspiration precautions -replace NGT, if patient permits -continue Diflucan -continue CLinimix #ESRD -on dialysis -Nephrology (Dr. Pereyra) consulted. #HTN -Continue Procardia XL, Labetalol, Cozaar #Depression, anxiety -continue Celexa #HIV -continue HAART #FEN -Not on any standing fluids -Electrolytes wnl, routine bmp monitoring -NPO, on IV Clinimix #Prophylaxis -Heparin 5000u sq tid #Disposition -full code -med surg Visit type - Emergency Visit Emergency Visit: Yes ED Registration Date: 11/25/19 Care time: The patient presented to the Emergency Department on the above date and was hospitalized for further evaluation of their emergent condition. - New Patient This patient is new to me today: Yes Date on this admission: 12/04/19 - Critical Care Critical Care patient: No ATTENDING PHYSICIAN STATEMENT I saw and evaluated the patient. I reviewed the resident's note and discussed the case with the resident. I agree with the resident's findings and plan as documented. SUBJECTIVE: OBJECTIVE: ASSESSMENT AND PLAN: <Shayna Vazquez - Last Filed: 12/04/19 17:31> Physical Exam: SUBJECTIVE: Patient seen and examined OBJECTIVE: Vital Signs Period Temp Pulse Resp BP Sys/Montes Pulse Ox Last 24 Hr 97.6 F-97.9 F 68-79 18-20 139-168/75-82 95 GENERAL: The patient is awake, alert, and fully oriented, in no acute distress. HEAD: Normal with no signs of trauma. EYES: PERRL, extraocular movements intact, sclera anicteric, conjunctiva clear. No ptosis. ENT: Ears normal, nares patent, oropharynx clear without exudates, moist mucous membranes. NECK: Trachea midline, full range of motion, supple. LUNGS: Breath sounds equal, clear to auscultation bilaterally, no wheezes, no crackles, no accessory muscle use. HEART: Regular rate and rhythm, S1, S2 without murmur, rub or gallop. ABDOMEN: Soft, nontender, nondistended, normoactive bowel sounds, no guarding, no rebound, no hepatosplenomegaly, no masses. EXTREMITIES: 2+ pulses, warm, well-perfused, no edema. NEUROLOGICAL: Cranial nerves II through XII grossly intact. Normal speech, gait not observed. PSYCH: Normal mood, normal affect. SKIN: Warm, dry, normal turgor, no rashes or lesions noted Laboratory Results - last 24 hr 12/04/19 12/04/19 05:50 05:50 WBC 6.1 RBC 3.94 L Hgb 13.2 Hct 39.4 MCV 99.9 H MCH 33.6 MCHC 33.6 RDW 16.6 H Plt Count 188 MPV 9.2 Absolute Neuts (auto) 5.5 Neutrophils % 90.2 H Lymphocytes % 3.9 L D Monocytes % 5.8 Eosinophils % 0.0 Basophils % 0.1 Nucleated RBC % 0 Sodium 134 L Potassium 4.1 Chloride 94 L Carbon Dioxide 28 Anion Gap 11 BUN 68.7 H Creatinine 6.8 H Est GFR (CKD-EPI)AfAm 8.85 Est GFR (CKD-EPI)NonAf 7.64 Random Glucose 120 H Calcium 8.7 Total Bilirubin 0.5 AST 12 L ALT 22 Alkaline Phosphatase 86 Total Protein 6.5 Albumin 2.8 L Active Medications Generic Name Dose Route Start Last Admin Trade Name Freq PRN Reason Stop Dose Admin Abacavir Sulfate 300 mg 11/25/19 22:00 12/04/19 10:51 Ziagen - PO Not Given BID [facility] Acetaminophen 650 mg 11/25/19 19:40 12/01/19 17:47 Tylenol - PO 650 mg Q6H PRN Administration PAIN LEVEL 6-10 Albuterol Sulfate 1 amp 11/26/19 14:47 11/28/19 00:30 Ventolin 0.083% Nebulizer Soln - NEB 1 amp Q4H PRN Administration SHORT OF BREATH/WHEEZING Albuterol/Ipratropium 1 amp 11/26/19 16:00 12/04/19 15:59 Duoneb - NEB Not Given RQID [facility] Benzocaine/Menthol 1 each 11/26/19 02:16 11/26/19 02:40 Cepacol Lozenge - MM 1 each PRN PRN Administration SORE THROAT Citalopram Hydrobromide 10 mg 11/26/19 10:00 12/04/19 10:50 Celexa - PO Not Given DAILY [facility] Clonidine HCl 0.1 mg 12/08/19 10:00 Catapres Tts Patch - TD We@1000 [facility] Famotidine 20 mg 11/25/19 22:00 12/03/19 23:41 Pepcid - PO Not Given HS [facility] Fluconazole 100 mg 11/26/19 10:00 12/04/19 10:50 Diflucan - PO Not Given DAILY [facility] Heparin Sodium (Porcine) 5,000 unit 11/25/19 22:00 12/04/19 14:55 Heparin - SQ 12/06/19 22:00 5,000 unit TID [facility] Administration Sodium Chloride 250 mls @ 3,000 mls/hr 11/26/19 14:00 Normal Saline - IV PRN PRN Hypotension during Dialysis Amino Acids 1,000 mls @ 84 mls/hr 11/30/19 22:15 12/04/19 10:50 Clinimix - IV 84 mls/hr Q12H [facility] Administration Fat Emulsion Intravenous 250 mls @ 20.833 mls/hr 12/01/19 22:00 12/03/19 23: 38 Intralipid - IV 20.833 mls/hr DAILY@2200 [facility] Administration Labetalol HCl 300 mg 11/25/19 22:00 12/04/19 10:51 Normodyne - PO Not Given BID [facility] Lamivudine 50 mg 11/26/19 10:00 12/04/19 10:50 Epivir Oral Solution - PO Not Given DAILY [facility] Lidocaine/Aluminum/Magnesium/Simeth 5 ml 11/25/19 18:00 12/04/19 14:54 Magic Mouthwash *Sjr Formula* - MM 5 ml Q6HPO [facility] Administration Lidocaine/Prilocaine 1 applic 11/29/19 12:25 Emla - TP PRN PRN PAIN LEVEL 1 - 3 Losartan Potassium 100 mg 11/26/19 10:00 12/04/19 10:50 Cozaar - PO Not Given DAILY [facility] Melatonin 5 mg 12/02/19 22:00 Melatonin PO HS PRN INSOMNIA Methylprednisolone Sodium Succinate 40 mg 11/28/19 18:00 12/04/19 10:49 Solu-Medrol - IVPUSH 40 mg Q8H-IV [facility] Administration Multivitamins/Minerals 10 ml 12/02/19 10:00 12/04/19 10:51 Infuvite Adult - IV Not Given DAILY [facility] Nicotine 21 mg 11/27/19 15:45 12/04/19 10:51 Nicoderm Patch - TD 21 mg DAILY [facility] Administration Nifedipine 90 mg 11/26/19 10:00 12/04/19 10:51 Procardia Xl - PO Not Given DAILY [facility] Nystatin 500,000 units 11/25/19 18:00 12/04/19 11:51 Nystatin Oral Suspension - PO Not Given Q6HPO [facility] Pantoprazole Sodium 40 mg 12/03/19 10:00 12/04/19 10:49 Protonix Iv IVPUSH 40 mg DAILY [facility] Administration Sevelamer Carbonate 1.6 gm 12/02/19 14:08 12/04/19 11:51 Renvela Powder Packet - GT Not Given TIDCM [facility] Simethicone 80 mg 11/28/19 22:15 12/04/19 14:57 Mylicon - PO Not Given QID [facility] ASSESSMENT/PLAN: ATTENDING PHYSICIAN STATEMENT I saw and evaluated the patient. I reviewed the resident's note and discussed the case with the resident. I agree with the resident's findings and plan as documented. SUBJECTIVE:overall feels improved. is thirsty and requesting to drink something but understands it is not safe at this time. denies CP, SOB, fever, chills, dysphagia, odynophagia OBJECTIVE: Last Vital Signs Temp Pulse Resp BP Pulse Ox 97.9 F 79 20 139/75 95 12/04/19 14:15 12/04/19 14:15 12/04/19 14:15 12/04/19 14:15 12/04/19 09:00 General NAD, hoarse voice, bitemporal wasting, prominent cheekbones and clavicles, thin extremities HEENT lateral oral plaque CV S1 S2 RRR no murmur/rub/gallop Lungs CTA B/L no wheezing/rales/rhonchi ASSESSMENT AND PLAN: 69yo M wtih PMH throat ca s/p RTx, COPD, ESRD on HD, [place] presenting with SOB and found to be in acute COPD exacerbation. course complicated by development of severe dysphagia requiring PEG placement 1. COPD exacerbation- improved. not requiring supplemental oxygen. on medrol 40mg Q8H can titrate down. 2. Oral thrush- on fluconazole 3. dysphagia- due to previous radiation. had NGT in but patient kept pulling it out and now refusing placement at this time. plan for MBS repeat on Friday and will liekly require PEG placement if +. on clinimix. maintain NPO, cont with oral hygiene 4. Moderate malnutrition- as evident by body habitus and weight loss. dietary supplements when can be placed via peg. dietary on board 5. hyponatremia- due to dehydration. improved 6. DVT ppx- hep sq Rest of note as per resident
[2019-12-04] MEDS: MAG HYDROX/ALH/SMC/DPHA/LIDO 240 ML MOUTHWASH MM SCH ×2 (14:54→18:21)
[2019-12-04] MEDS: HEPARIN NA (PORCINE) 5,000 UNITS/ML 1ML VIAL SQ SCH ×2 (14:55→22:00)
[2019-12-04] MEDS: FAT EMULSIONS 250 ML IV SCH (22:00)
[2019-12-05] MEDS: methylPREDNISolone NA SUCC 40 MG/1 ML VIAL IVPUSH SCH ×2 (02:00→09:13)
[2019-12-05] MEDS: AMINO ACIDS 4.25%/D5W 1,000 ML IV SCH ×3 (03:30→22:32)
[2019-12-05] MEDS: HEPARIN NA (PORCINE) 5,000 UNITS/ML 1ML VIAL SQ SCH ×4 (06:00→22:40)
[2019-12-05 07:14] LABS: BASO % 0.1 % (0-2.0); HEMATOCRIT 37.3 % (35.4-49); HEMOGLOBIN 12.2 GM/dL (11.7-16.9); LYMPH % 6.5 % (8-40); MCH 32.9 pg (25.7-33.7); MCHC 32.7 g/dl (32.0-35.9); MEAN CELL VOLUME 100.5 fl (80-96); MEAN PLT VOLUME 9.3 fl (7.5-11.1); MONO % 7.3 % (3.8-10.2); NEUT % 86.1 % (42.8-82.8); PLATELET COUNT 162 K/MM3 (134-434); RBC 3.71 M/mm3 (4.00-5.60); RDW 16.3 % (11.9-15.9); WHITE BLOOD COUNT 5.4 K/mm3 (4.0-10.0)
[2019-12-05] MEDS: SIMETHICONE 80 MG TAB.CHEW (FP) PO SCH ×5 (07:27→22:01)
[2019-12-05] MEDS: MAG HYDROX/ALH/SMC/DPHA/LIDO 240 ML MOUTHWASH MM SCH ×3 (07:27→18:00)
[2019-12-05] MEDS: NYSTATIN 500,000 UNITS/5 ML SUSPENSION PO SCH ×3 (07:27→17:59)
[2019-12-05] MEDS: LABETALOL HCL 100 MG TABLET (FP) PO SCH ×3 (07:27→22:01)
[2019-12-05] MEDS: FAMOTIDINE 20 MG TABLET PO SCH ×2 (07:28→22:01)
[2019-12-05] MEDS: ABACAVIR SULFATE 300 MG TABLET PO SCH ×3 (07:28→22:01)
[2019-12-05] MEDS: ALBUTEROL SO4 2.5/IPRATROPIUM 0.5 INH SOL 3 ML VIAL.NEB. NEB SCH ×4 (07:35→20:08)
[2019-12-05 08:00] LABS: ALBUMIN 2.5 g/dl (3.4-5.0); BILIRUBIN,TOTAL 0.5 mg/dL (0.2-1); CALCIUM 8.8 mg/dL (8.5-10.1); MAGNESIUM 2.3 mg/dL (1.8-2.4); PHOSPHOROUS 8.3 mg/dL (2.5-4.9); POTASSIUM 4.4 mmol/L (3.5-5.1); TOT PROT 5.9 g/dl (6.4-8.2)
[2019-12-05 08:15] LABS: BLOOD UREA NITROGEN 116.2 mg/dL (7-18)
[2019-12-05 08:16] LABS: CREATININE 9.4 mg/dL (0.55-1.3)
[2019-12-05] MEDS: SEVELAMER CARBONATE 0.8 GM POWDER PACKET GT SCH ×3 (08:58→17:25)
[2019-12-05] MEDS: NICOTINE 21 MG/24 HOURS TOPICAL PATCH TD SCH (09:11)
[2019-12-05] MEDS: CITALOPRAM HYDROBROMIDE 10 MG TABLET PO SCH (09:11)
[2019-12-05] MEDS: DOLUTEGRAVIR SODIUM 50 MG TABLET (NON-FORMULARY) PO SCH (09:11)
[2019-12-05] MEDS: lamiVUDine 10 MG/1 ML BULK BOTTLE PO SCH (09:11)
[2019-12-05] MEDS: FLUCONAZOLE 100 MG TABLET (UD) PO SCH (09:12)
[2019-12-05] MEDS: LOSARTAN POTASSIUM 50 MG TABLET (FP) PO SCH (09:12)
[2019-12-05] MEDS: NIFEdipine E.R. 90 MG TABLET PO SCH (09:12)
[2019-12-05] MEDS: PANTOPRAZOLE SODIUM 40 MG VIAL IVPUSH SCH (09:15)
--- NOTE | 2019-12-05 12:33 | PN ---
Progress Note (short form) - Note Progress Note: Breathing feels overall better. Still with significant hoarseness of voice. Intake & Output 12/02/19 12/03/19 12/04/19 12/05/19 23:59 23:59 23:59 23:59 Intake Total 840 1758 693 838 Output Total 1999 Balance 840 -242 693 838 Last Vital Signs Temp Pulse Resp BP Pulse Ox 98.1 F 72 18 144/69 96 12/05/19 09:05 12/05/19 09:05 12/05/19 09:05 12/05/19 09:05 12/04/19 19:55 Active Medications Abacavir Sulfate (Ziagen -) 300 mg PO BID [facility] Last Admin: 12/05/19 09:13 Dose: Not Given Acetaminophen (Tylenol -) 650 mg PO Q6H PRN PRN Reason: PAIN LEVEL 6-10 Last Admin: 12/01/19 17:47 Dose: 650 mg Albuterol Sulfate (Ventolin 0.083% Nebulizer Soln -) 1 amp NEB Q4H PRN PRN Reason: SHORT OF BREATH/WHEEZING Last Admin: 11/28/19 00:30 Dose: 1 amp Albuterol/Ipratropium (Duoneb -) 1 amp NEB RQID [facility] Last Admin: 12/05/19 12:11 Dose: 1 amp Benzocaine/Menthol (Cepacol Lozenge -) 1 each MM PRN PRN PRN Reason: SORE THROAT Last Admin: 11/26/19 02:40 Dose: 1 each Citalopram Hydrobromide (Celexa -) 10 mg PO DAILY [facility] Last Admin: 12/05/19 09:11 Dose: Not Given Clonidine HCl (Catapres Tts Patch -) 0.1 mg TD We@1000 [facility] Famotidine (Pepcid -) 20 mg PO HS [facility] Last Admin: 12/05/19 07:28 Dose: Not Given Fluconazole (Diflucan -) 100 mg PO DAILY [facility] Last Admin: 12/05/19 09:12 Dose: Not Given Heparin Sodium (Porcine) (Heparin -) 5,000 unit SQ TID [facility] Stop: 12/06/19 22:00 Last Admin: 12/05/19 07:28 Dose: 5,000 unit Sodium Chloride (Normal Saline -) 250 mls @ 3,000 mls/hr IV PRN PRN PRN Reason: Hypotension during Dialysis Amino Acids (Clinimix -) 1,000 mls @ 84 mls/hr IV Q12H [facility] Last Admin: 12/05/19 03:30 Dose: 84 mls/hr Fat Emulsion Intravenous (Intralipid -) 250 mls @ 20.833 mls/hr IV DAILY@2200 [facility] Last Admin: 12/04/19 22:00 Dose: 20.833 mls/hr Labetalol HCl (Normodyne -) 300 mg PO BID [facility] Last Admin: 12/05/19 09:12 Dose: Not Given Lamivudine (Epivir Oral Solution -) 50 mg PO DAILY [facility] Last Admin: 12/05/19 09:11 Dose: Not Given Lidocaine/Aluminum/Magnesium/Simeth (Magic Mouthwash *Sjr Formula* -) 5 ml MM Q6HPO [facility] Last Admin: 12/05/19 07:27 Dose: Not Given Lidocaine/Prilocaine (Emla -) 1 applic TP PRN PRN PRN Reason: PAIN LEVEL 1 - 3 Losartan Potassium (Cozaar -) 100 mg PO DAILY [facility] Last Admin: 12/05/19 09:12 Dose: Not Given Melatonin (Melatonin) 5 mg PO HS PRN PRN Reason: INSOMNIA Methylprednisolone Sodium Succinate (Solu-Medrol -) 40 mg IVPUSH Q8H-IV [facility] Last Admin: 12/05/19 09:13 Dose: 40 mg Multivitamins/Minerals (Infuvite Adult -) 10 ml IV DAILY [facility] Last Admin: 12/04/19 10:51 Dose: Not Given Nicotine (Nicoderm Patch -) 21 mg TD DAILY [facility] Last Admin: 12/05/19 09:11 Dose: 21 mg Nifedipine (Procardia Xl -) 90 mg PO DAILY [facility] Last Admin: 12/05/19 09:12 Dose: Not Given Nystatin (Nystatin Oral Suspension -) 500,000 units PO Q6HPO [facility] Last Admin: 12/05/19 07:27 Dose: Not Given Pantoprazole Sodium (Protonix Iv) 40 mg IVPUSH DAILY [facility] Last Admin: 12/05/19 09:15 Dose: 40 mg Sevelamer Carbonate (Renvela Powder Packet -) 1.6 gm GT TIDCM [facility] Last Admin: 12/05/19 08:58 Dose: Not Given Simethicone (Mylicon -) 80 mg PO QID [facility] Last Admin: 12/05/19 09:12 Dose: Not Given Constitutional: Yes: NAD, Thin Eyes: Yes: WNL HENT: Yes: WNL Neck: Yes: WNL Cardiovascular: Yes: Regular Rate and Rhythm, S1, S2 Respiratory: Yes: few scattered rhonchi Gastrointestinal: Yes: Normal Bowel Sounds, Soft Extremities: Yes: WNL Edema: No Labs: Laboratory Results - last 24 hr 12/05/19 12/05/19 05:55 05:55 WBC 5.4 RBC 3.71 L Hgb 12.2 Hct 37.3 MCV 100.5 H MCH 32.9 MCHC 32.7 RDW 16.3 H Plt Count 162 MPV 9.3 Absolute Neuts (auto) 4.7 Neutrophils % 86.1 H Lymphocytes % 6.5 L D Monocytes % 7.3 Eosinophils % 0.0 Basophils % 0.1 Nucleated RBC % 0 Sodium 131 L Potassium 4.4 Chloride 92 L Carbon Dioxide 23 Anion Gap 17 H BUN 116.2 H* Creatinine 9.4 H* Est GFR (CKD-EPI)AfAm 5.99 Est GFR (CKD-EPI)NonAf 5.16 Random Glucose 151 H Calcium 8.8 Phosphorus 8.3 H Magnesium 2.3 Total Bilirubin 0.5 AST 9 L ALT 18 Alkaline Phosphatase 80 Total Protein 5.9 L Albumin 2.5 L Assessment/Plan Problem List - Problems (1) COPD exacerbation Code(s): J44.1 - CHRONIC OBSTRUCTIVE PULMONARY DISEASE W (ACUTE) EXACERBATION (2) Anemia Code(s): D64.9 - ANEMIA, UNSPECIFIED Qualifiers: Anemia type: unspecified type Qualified Code(s): D64.9 - Anemia, unspecified (3) Anemia, chronic disease Code(s): D63.8 - ANEMIA IN OTHER CHRONIC DISEASES CLASSIFIED ELSEWHERE (4) CKD (chronic kidney disease) requiring chronic dialysis Code(s): N18.6 - END STAGE RENAL DISEASE; Z99.2 - DEPENDENCE ON RENAL DIALYSIS (5) End stage renal disease Code(s): N18.6 - END STAGE RENAL DISEASE (6) HIV (human immunodeficiency virus infection) Code(s): B20 - HUMAN IMMUNODEFICIENCY VIRUS [HIV] DISEASE (7) HTN (hypertension) Code(s): I10 - ESSENTIAL (PRIMARY) HYPERTENSION (8) Hyperlipidemia Code(s): E78.5 - HYPERLIPIDEMIA, UNSPECIFIED Qualifiers: (9) COPD exacerbation Code(s): J44.1 - CHRONIC OBSTRUCTIVE PULMONARY DISEASE W (ACUTE) EXACERBATION (10) Shortness of breath Code(s): R06.02 - SHORTNESS OF BREATH PLAN: Prednisone BD TX Standing and PRN Supplemental O2 as needed No smoking was counseled VTE prophylaxis HD per Renal Aspiration precautions Dr Schmidt Problem List - Problems (1) COPD exacerbation Code(s): J44.1 - CHRONIC OBSTRUCTIVE PULMONARY DISEASE W (ACUTE) EXACERBATION (2) Anemia Code(s): D64.9 - ANEMIA, UNSPECIFIED Qualifiers: Anemia type: unspecified type Qualified Code(s): D64.9 - Anemia, unspecified (3) Anemia, chronic disease Code(s): D63.8 - ANEMIA IN OTHER CHRONIC DISEASES CLASSIFIED ELSEWHERE (4) CKD (chronic kidney disease) requiring chronic dialysis Code(s): N18.6 - END STAGE RENAL DISEASE; Z99.2 - DEPENDENCE ON RENAL DIALYSIS (5) End stage renal disease Code(s): N18.6 - END STAGE RENAL DISEASE (6) HIV (human immunodeficiency virus infection) Code(s): B20 - HUMAN IMMUNODEFICIENCY VIRUS [HIV] DISEASE (7) HTN (hypertension) Code(s): I10 - ESSENTIAL (PRIMARY) HYPERTENSION (8) Hyperlipidemia Code(s): E78.5 - HYPERLIPIDEMIA, UNSPECIFIED Qualifiers: (10) COPD exacerbation Code(s): J44.1 - CHRONIC OBSTRUCTIVE PULMONARY DISEASE W (ACUTE) EXACERBATION (11) Shortness of breath Code(s): R06.02 - SHORTNESS OF BREATH
[2019-12-05] MEDS ORDERED: predniSONE 20 MG TABLET (UD) PO SCH (12:45)
[2019-12-05] MEDS ORDERED: predniSONE 20 MG TABLET (UD) PO ONE (14:58)
[2019-12-05] MEDS: MULTIVIT INJ. ADULT COMBO WITH VIT K 1 COMBO 10 ML VIAL IV SCH (16:02)
[2019-12-05] MEDS ORDERED: methylPREDNISolone NA SUCC 40 MG/1 ML VIAL IVPUSH SCH (18:45)
--- NOTE | 2019-12-05 18:49 | PN ---
Progress Note, Physician History of Present Illness: seen and examined at bedside. states he feels well still hoarse voice. For swallow eval tomorrow. for HD tomorrow. Denies nausea vomiting fever chills chest pain. states his mouth feels better. States he has to "check out by Friday for a time sensitive appointment with home health aides" - Current Medication List Current Medications: Active Medications Abacavir Sulfate (Ziagen -) 300 mg PO BID [facility] Last Admin: 12/05/19 09:13 Dose: Not Given Acetaminophen (Tylenol -) 650 mg PO Q6H PRN PRN Reason: PAIN LEVEL 6-10 Last Admin: 12/01/19 17:47 Dose: 650 mg Albuterol Sulfate (Ventolin 0.083% Nebulizer Soln -) 1 amp NEB Q4H PRN PRN Reason: SHORT OF BREATH/WHEEZING Last Admin: 11/28/19 00:30 Dose: 1 amp Albuterol/Ipratropium (Duoneb -) 1 amp NEB RQID [facility] Last Admin: 12/05/19 16:48 Dose: 1 amp Benzocaine/Menthol (Cepacol Lozenge -) 1 each MM PRN PRN PRN Reason: SORE THROAT Last Admin: 11/26/19 02:40 Dose: 1 each Citalopram Hydrobromide (Celexa -) 10 mg PO DAILY [facility] Last Admin: 12/05/19 09:11 Dose: Not Given Clonidine HCl (Catapres Tts Patch -) 0.1 mg TD We@1000 [facility] Famotidine (Pepcid -) 20 mg PO HS [facility] Last Admin: 12/05/19 07:28 Dose: Not Given Fluconazole (Diflucan -) 100 mg PO DAILY [facility] Last Admin: 12/05/19 09:12 Dose: Not Given Heparin Sodium (Porcine) (Heparin -) 5,000 unit SQ TID [facility] Stop: 12/06/19 22:00 Last Admin: 12/05/19 13:38 Dose: 5,000 unit Sodium Chloride (Normal Saline -) 250 mls @ 3,000 mls/hr IV PRN PRN PRN Reason: Hypotension during Dialysis Amino Acids (Clinimix -) 1,000 mls @ 84 mls/hr IV Q12H [facility] Last Admin: 12/05/19 16:02 Dose: 84 mls/hr Fat Emulsion Intravenous (Intralipid -) 250 mls @ 20.833 mls/hr IV DAILY@2200 [facility] Last Admin: 12/04/19 22:00 Dose: 20.833 mls/hr Labetalol HCl (Normodyne -) 300 mg PO BID [facility] Last Admin: 12/05/19 09:12 Dose: Not Given Lamivudine (Epivir Oral Solution -) 50 mg PO DAILY [facility] Last Admin: 12/05/19 09:11 Dose: Not Given Lidocaine/Aluminum/Magnesium/Simeth (Magic Mouthwash *Sjr Formula* -) 5 ml MM Q6HPO [facility] Last Admin: 12/05/19 18:00 Dose: 5 ml Lidocaine/Prilocaine (Emla -) 1 applic TP PRN PRN PRN Reason: PAIN LEVEL 1 - 3 Losartan Potassium (Cozaar -) 100 mg PO DAILY [facility] Last Admin: 12/05/19 09:12 Dose: Not Given Melatonin (Melatonin) 5 mg PO HS PRN PRN Reason: INSOMNIA Multivitamins/Minerals (Infuvite Adult -) 10 ml IV DAILY [facility] Last Admin: 12/05/19 16:02 Dose: 10 ml Nicotine (Nicoderm Patch -) 21 mg TD DAILY [facility] Last Admin: 12/05/19 09:11 Dose: 21 mg Nifedipine (Procardia Xl -) 90 mg PO DAILY [facility] Last Admin: 12/05/19 09:12 Dose: Not Given Nystatin (Nystatin Oral Suspension -) 500,000 units PO Q6HPO [facility] Last Admin: 12/05/19 17:59 Dose: 500,000 units Pantoprazole Sodium (Protonix Iv) 40 mg IVPUSH DAILY [facility] Last Admin: 12/05/19 09:15 Dose: 40 mg Prednisone (Deltasone -) 40 mg PO DAILY [facility] Last Admin: 12/05/19 13:33 Dose: Not Given Sevelamer Carbonate (Renvela Powder Packet -) 1.6 gm GT TIDCM [facility] Last Admin: 12/05/19 17:25 Dose: Not Given Simethicone (Mylicon -) 80 mg PO QID [facility] Last Admin: 12/05/19 17:25 Dose: Not Given - Objective Vital Signs: Vital Signs Temperature 98.4 F 12/05/19 13:45 Pulse Rate 80 12/05/19 13:45 Respiratory Rate 12/05/19 13:45 Blood Pressure 139/69 12/05/19 13:45 O2 Sat by Pulse Oximetry (%) 95 12/05/19 09:05 Constitutional: Yes: No Distress, Calm, Other (muscle wasting) Eyes: Yes: EOM Intact HENT: Yes: Other (some plaques on tongue) Neck: Yes: Supple Cardiovascular: Yes: Regular Rate and Rhythm Respiratory: Yes: Diminished, Poor Air Entry. No: Accessory Muscle Use Gastrointestinal: Yes: Soft. No: Distention, Tenderness Edema: No Labs: CBC, BMP 12/05/19 05:55 12/05/19 05:55 INR, PTT INR 1.00 (0.83-1.09) 12/02/19 05:40 Impression/Plan Impression/Plan: 69yo M wtih PMH throat ca s/p RTx, COPD, ESRD on HD, [place] presenting with SOB and found to be in acute COPD exacerbation. course complicated by development of severe dysphagia requiring PEG placement COPD exacerbation- improved. not requiring supplemental oxygen. titrated to 40mg po prednisone but unable to take PO at this time so will hold and switch to IV Medrol 40mg daily Oral thrush nystatin oral solution dysphagia- due to previous radiation. had NGT in but patient kept pulling it out and now refusing placement at this time. plan for MBS repeat tomorrow suspect will require PEG continue on clinimix. maintain NPO for now cont with oral hygiene Moderate malnutrition in the setting of dysphagia as evident by body habitus, muscle wasting and weight loss hyponatremia due to dehydration sodium 131 today HIV restart HAART once able to take PO or gets PEG HTN Cant take PO meds BP acceptable at this time DVT ppx- hep sq GI PPx IV protonix Visit type - Emergency Visit Emergency Visit: Yes ED Registration Date: 11/25/19 Care time: The patient presented to the Emergency Department on the above date and was hospitalized for further evaluation of their emergent condition. - New Patient This patient is new to me today: Yes Date on this admission: 12/05/19 - Critical Care Critical Care patient: No
[2019-12-05] MEDS: FAT EMULSIONS 250 ML IV SCH (22:29)
[2019-12-06] MEDS: NYSTATIN 500,000 UNITS/5 ML SUSPENSION PO SCH ×6 (00:52→19:06)
[2019-12-06] MEDS: MAG HYDROX/ALH/SMC/DPHA/LIDO 240 ML MOUTHWASH MM SCH ×5 (00:53→19:06)
[2019-12-06] MEDS: HEPARIN NA (PORCINE) 5,000 UNITS/ML 1ML VIAL SQ SCH ×4 (05:56→21:57)
[2019-12-06 06:27] LABS: HEMATOCRIT 38.5 % (35.4-49); HEMOGLOBIN 12.8 GM/dL (11.7-16.9); MCH 33.7 pg (25.7-33.7); MCHC 33.2 g/dl (32.0-35.9); MEAN CELL VOLUME 101.4 fl (80-96); MEAN PLT VOLUME 9.7 fl (7.5-11.1); PLATELET COUNT 160 K/MM3 (134-434); RDW 16.3 % (11.9-15.9); WHITE BLOOD COUNT 7.2 K/mm3 (4.0-10.0)
[2019-12-06 07:23] LABS: GLUCOSE,RANDOM 77 mg/dL (74-106); SODIUM 132 mmol/L (136-145)
[2019-12-06 07:24] LABS: ALBUMIN 2.4 g/dl (3.4-5.0); ALK PHOS 76 U/L (45-117); ANION GAP 21 MMOL/L (8-16); BILIRUBIN,TOTAL 1.2 mg/dL (0.2-1); CALCIUM 8.4 mg/dL (8.5-10.1); CHLORIDE 93 mmol/L (98-107); CO2 19 mmol/L (21-32); PHOSPHOROUS 8.2 mg/dL (2.5-4.9); POTASSIUM 4.3 mmol/L (3.5-5.1); SGOT/AST 13 U/L (15-37); SGPT/ALT 17 U/L (13-61); TOT PROT 5.6 g/dl (6.4-8.2)
--- NOTE | 2019-12-06 07:30 | PN ---
Physical Exam: SUBJECTIVE: Patient seen and examined at bed side, his BP better controlled , we start him on clonidin patch , can use labetol iv or hydralyzin IV PRN tolerating HD denies any fever, chills, N/V/D/C hold asa for 7 days for exepected PEG next friday hold Heparin SC the night before procedure His X at bed side would like to be informed before procedure at Cell# [phone] karan shaw and pt agree with that repeat MBS friday to see if there is any improvement before PEG NGT sludged over night and refuse to be rep;aced unless under aneshesia OBJECTIVE: Vital Signs Period Temp Pulse Resp BP Sys/Montes Pulse Ox Last 24 Hr 97.4 F-98.4 F 62-80 18-20 125-153/68-80 95-95 GENERAL: AAOx3 in NAD , with muffled voice , HEAD: NC/AT EYES: EOMI, Conjunctiva clear, sclera anicteric ENT: dry mucous membrane NECK: Supple, no JVD, LUNGS: CTA B/L HEART: RRR, , normal s1, s2, murmur no M/R/G ABDOMEN: Soft, ND, NT, +BS 4 Q, no CVA Tenderness LOWER EXTREMITIES: no edema, +2DP pulse, NEUROLOGICAL: No focal deficit. Normal speech. gait not observed. PSYCHIATRIC: Cooperative. Good eye contact. Appropriate mood and affect. SKIN: Warm, dry, Laboratory Results - last 24 hr 12/05/19 12/06/19 12/06/19 05:55 05:25 05:25 WBC 7.2 RBC 3.80 L Hgb 12.8 Hct 38.5 MCV 101.4 H MCH 33.7 MCHC 33.2 RDW 16.3 H Plt Count 160 MPV 9.7 Sodium 131 L 132 L Potassium 4.4 4.3 Chloride 92 L 93 L Carbon Dioxide 23 19 L Anion Gap 17 H 21 H BUN 116.2 H* Creatinine 9.4 H* Est GFR (CKD-EPI)AfAm 5.99 4.59 Est GFR (CKD-EPI)NonAf 5.16 3.96 Random Glucose 151 H 77 Calcium 8.8 8.4 L Phosphorus 8.3 H 8.2 H Magnesium 2.3 Total Bilirubin 0.5 1.2 H AST 9 L 13 L ALT 18 17 Alkaline Phosphatase 80 76 Total Protein 5.9 L 5.6 L Albumin 2.5 L 2.4 L Active Medications Generic Name Dose Route Start Last Admin Trade Name Freq PRN Reason Stop Dose Admin Abacavir Sulfate 300 mg 11/25/19 22:00 12/05/19 22:01 Ziagen - PO Not Given BID [facility] Acetaminophen 650 mg 11/25/19 19:40 12/01/19 17:47 Tylenol - PO 650 mg Q6H PRN Administration PAIN LEVEL 6-10 Albuterol Sulfate 1 amp 11/26/19 14:47 11/28/19 00:30 Ventolin 0.083% Nebulizer Soln - NEB 1 amp Q4H PRN Administration SHORT OF BREATH/WHEEZING Albuterol/Ipratropium 1 amp 11/26/19 16:00 12/05/19 20:08 Duoneb - NEB 1 amp RQID [facility] Administration Benzocaine/Menthol 1 each 11/26/19 02:16 11/26/19 02:40 Cepacol Lozenge - MM 1 each PRN PRN Administration SORE THROAT Citalopram Hydrobromide 10 mg 11/26/19 10:00 12/05/19 09:11 Celexa - PO Not Given DAILY [facility] Clonidine HCl 0.1 mg 12/08/19 10:00 Catapres Tts Patch - TD We@1000 [facility] Famotidine 20 mg 11/25/19 22:00 12/05/19 22:01 Pepcid - PO Not Given HS [facility] Fluconazole 100 mg 11/26/19 10:00 12/05/19 09:12 Diflucan - PO Not Given DAILY [facility] Heparin Sodium (Porcine) 5,000 unit 11/25/19 22:00 12/06/19 05:56 Heparin - SQ 12/06/19 22:00 5,000 unit TID [facility] Administration Sodium Chloride 250 mls @ 3,000 mls/hr 11/26/19 14:00 Normal Saline - IV PRN PRN Hypotension during Dialysis Amino Acids 1,000 mls @ 84 mls/hr 11/30/19 22:15 12/05/19 22:32 Clinimix - IV 84 mls/hr Q12H [facility] Administration Fat Emulsion Intravenous 250 mls @ 20.833 mls/hr 12/01/19 22:00 02/16/20 22: 29 Intralipid - IV 20.833 mls/hr DAILY@2200 [facility] Administration Labetalol HCl 300 mg 11/25/19 22:00 12/05/19 22:01 Normodyne - PO Not Given BID [facility] Lamivudine 50 mg 11/26/19 10:00 12/05/19 09:11 Epivir Oral Solution - PO Not Given DAILY [facility] Lidocaine/Aluminum/Magnesium/Simeth 5 ml 11/25/19 18:00 12/06/19 05:55 Magic Mouthwash *Sjr Formula* - MM 5 ml Q6HPO [facility] Administration Lidocaine/Prilocaine 1 applic 11/29/19 12:25 Emla - TP PRN PRN PAIN LEVEL 1 - 3 Losartan Potassium 100 mg 11/26/19 10:00 12/05/19 09:12 Cozaar - PO Not Given DAILY [facility] Melatonin 5 mg 12/02/19 22:00 Melatonin PO HS PRN INSOMNIA Methylprednisolone Sodium Succinate 40 mg 12/06/19 10:00 Solu-Medrol - IVPUSH DAILY [facility] Multivitamins/Minerals 10 ml 12/02/19 10:00 12/05/19 16:02 Infuvite Adult - IV 10 ml DAILY [facility] Administration Nicotine 21 mg 11/27/19 15:45 12/05/19 09:11 Nicoderm Patch - TD 21 mg DAILY [facility] Administration Nifedipine 90 mg 11/26/19 10:00 12/05/19 09:12 Procardia Xl - PO Not Given DAILY [facility] Nystatin 500,000 units 11/25/19 18:00 12/06/19 05:55 Nystatin Oral Suspension - PO 500,000 units Q6HPO [facility] Administration Pantoprazole Sodium 40 mg 12/03/19 10:00 12/05/19 09:15 Protonix Iv IVPUSH 40 mg DAILY [facility] Administration Prednisone 40 mg 12/05/19 12:45 12/05/19 13:33 Deltasone - PO Not Given DAILY [facility] Sevelamer Carbonate 1.6 gm 12/02/19 14:08 12/05/19 17:25 Renvela Powder Packet - GT Not Given TIDCM [facility] Simethicone 80 mg 11/28/19 22:15 12/05/19 22:01 Mylicon - PO Not Given QID [facility] CBC, BMP 12/06/19 05:25 12/06/19 05:25 ASSESSMENT/PLAN: 69 y/o M, pmh of HIV, throat cancer s/p radiation at [place], COPD not on home O2, ESRD (on dialysis M/W/F), cardiac arreswt x4 (last arrest was last month), presented to the ED because of SOB. #Acute copd exacerbation * improving , cont Sulomedrol and broncho dilators , switch to po prednisone 40 mg daily # Dysphagia , pharyngeal phase for solid and liquids 2/2 radiation therapy * seen by ENT with no mass or lesion noted possible infection * MBS done with high risk of aspiration recommend npo follow repeat MBS today * cont clinimix and lipisds and multivitamins * if MBS still with high risk aspiration IR will place PEG tube, pt ofelia like to do any thing to prolonged his life (planned for Friday ) * CT of neck shows multiple hypodense thyroid nodules - will need US as outpatient * HOLD ASA for 7 days for PEG next week Friday per IR * NGT placed * ENT evaluation appreciated - laryngoscopy showed coating of thick yellow/ crusted material on endolarynx * start Tube feeding * repeat MBS Friday follow up results #Oral thrush * ID consulted * cont Diflucan 10 mg po daily through NGT #ESRD * Nephrology consulted: Dr. Pereyra * HD today 2.5 leter removed * cont HD #HIV * last CD4 in 600s 11/16/2019 * Resume pts home meds #Throat Ca s/p radiation * w/ underlying dysphagia, mucositic changes in throat * cover for oral candidiasis w/ oral fluconazole 200mg * Heme Onc evaluation for mucositis #LORNA Lung lesion # COPD * bronchodilators * dc Sulo-medrol 40 Q 8hr , start prednsione 40 mg po daily * Pulmonary consulted * primary vs mets. * CT Chest 11/03- severe COPD, no consolidation, Tiny cavity in LORNA 7mm w/ mild thickening and questionable, b/l posterior CV pleural effusion. Cardiomegaly mild, aneurysmal dilation of ascending aorta 4.5cm in AP dimension. Exophytic left renal pole cyst and indeterminate exophytic lesion on right mid kidney laterally as well as posteriorly 1.6 and .8 cm. #HTN, uncontrolled * cont labetolol, nefidipine losartan * add clonidine patch and Hydralizin IV PRN due to uncontrolled BP * monitor closely #Depression/Anxiety * continue Celexa. # nicotine dependence cont nicotin patch #HLD * Continue Statin. # H/O cardiac arrest #DVT ppx * Heparin SQ. hold night before procedure PEG # GI proph PPI # NGT placed for mediciation , started on clinimix and infuvit 10 ml and lipid sper creative intern # For PEG Tube next Friday Visit type - Emergency Visit Emergency Visit: Yes ED Registration Date: 11/25/19 Care time: The patient presented to the Emergency Department on the above date and was hospitalized for further evaluation of their emergent condition. - New Patient This patient is new to me today: No - Critical Care Critical Care patient: No - Discharge Referral Referred to [facility] No ATTENDING PHYSICIAN STATEMENT I saw and evaluated the patient. I reviewed the resident's note and discussed the case with the resident. I agree with the resident's findings and plan as documented. SUBJECTIVE: OBJECTIVE: ASSESSMENT AND PLAN:
[2019-12-06] MEDS: HEPARIN NA (PORCINE) 5,000 UNITS/ML 1ML VIAL IVPUSH SCH ×2 (07:35→07:36)
[2019-12-06] MEDS: AMINO ACIDS 4.25%/D5W 1,000 ML IV SCH ×2 (07:37→12:46)
[2019-12-06] MEDS: ALBUTEROL SO4 2.5/IPRATROPIUM 0.5 INH SOL 3 ML VIAL.NEB. NEB SCH ×4 (07:52→20:30)
[2019-12-06] MEDS: SEVELAMER CARBONATE 0.8 GM POWDER PACKET GT SCH ×3 (08:02→18:44)
[2019-12-06 08:21] LABS: BLOOD UREA NITROGEN > 150.0 mg/dL (7-18); CREATININE 11.7 mg/dL (0.55-1.3)
[2019-12-06] MEDS ORDERED: PT OWN MED DRAWER 7, Y5N ONE ×2 (10:25→12:40)
[2019-12-06] MEDS: methylPREDNISolone NA SUCC 40 MG/1 ML VIAL IVPUSH SCH (10:32)
[2019-12-06] MEDS: NICOTINE 21 MG/24 HOURS TOPICAL PATCH TD SCH (10:33)
[2019-12-06] MEDS: PANTOPRAZOLE SODIUM 40 MG VIAL IVPUSH SCH (10:33)
[2019-12-06] MEDS: MULTIVIT INJ. ADULT COMBO WITH VIT K 1 COMBO 10 ML VIAL IV SCH (12:46)
--- NOTE | 2019-12-06 13:52 | PN ---
Progress Note (short form) - Note Progress Note: visited the patient to consent for peg placement. the patient refuses nasogastric tube placement which is required for the procedure. he would prefer done by GI with anesthesia.
--- NOTE | 2019-12-06 15:46 | PN ---
Progress Note, Physician History of Present Illness: Pt seen and examined at bedside. he is tolerating HD. - Current Medication List Current Medications: Active Medications Abacavir Sulfate (Ziagen -) 300 mg PO BID [facility] Last Admin: 12/05/19 22:01 Dose: Not Given Acetaminophen (Tylenol -) 650 mg PO Q6H PRN PRN Reason: PAIN LEVEL 6-10 Last Admin: 12/01/19 17:47 Dose: 650 mg Albuterol Sulfate (Ventolin 0.083% Nebulizer Soln -) 1 amp NEB Q4H PRN PRN Reason: SHORT OF BREATH/WHEEZING Last Admin: 11/28/19 00:30 Dose: 1 amp Albuterol/Ipratropium (Duoneb -) 1 amp NEB RQID [facility] Last Admin: 12/06/19 12:11 Dose: 1 amp Benzocaine/Menthol (Cepacol Lozenge -) 1 each MM PRN PRN PRN Reason: SORE THROAT Last Admin: 11/26/19 02:40 Dose: 1 each Citalopram Hydrobromide (Celexa -) 10 mg PO DAILY [facility] Last Admin: 12/05/19 09:11 Dose: Not Given Clonidine HCl (Catapres Tts Patch -) 0.1 mg TD We@1000 [facility] Famotidine (Pepcid -) 20 mg PO HS [facility] Last Admin: 12/05/19 22:01 Dose: Not Given Fluconazole (Diflucan -) 100 mg PO DAILY [facility] Last Admin: 12/05/19 09:12 Dose: Not Given Heparin Sodium (Porcine) (Heparin -) 5,000 unit SQ TID [facility] Stop: 12/06/19 22:00 Sodium Chloride (Normal Saline -) 250 mls @ 3,000 mls/hr IV PRN PRN PRN Reason: Hypotension during Dialysis Amino Acids (Clinimix -) 1,000 mls @ 84 mls/hr IV Q12H [facility] Last Admin: 12/06/19 12:46 Dose: 84 mls/hr Fat Emulsion Intravenous (Intralipid -) 250 mls @ 20.833 mls/hr IV DAILY@2200 [facility] Last Admin: 12/05/19 22:29 Dose: 20.833 mls/hr Labetalol HCl (Normodyne -) 300 mg PO BID [facility] Last Admin: 12/05/19 22:01 Dose: Not Given Lamivudine (Epivir Oral Solution -) 50 mg PO DAILY [facility] Last Admin: 12/05/19 09:11 Dose: Not Given Lidocaine/Aluminum/Magnesium/Simeth (Magic Mouthwash *Sjr Formula* -) 5 ml MM Q6HPO [facility] Last Admin: 12/06/19 12:47 Dose: 5 ml Lidocaine/Prilocaine (Emla -) 1 applic TP PRN PRN PRN Reason: PAIN LEVEL 1 - 3 Losartan Potassium (Cozaar -) 100 mg PO DAILY [facility] Last Admin: 12/05/19 09:12 Dose: Not Given Melatonin (Melatonin) 5 mg PO HS PRN PRN Reason: INSOMNIA Methylprednisolone Sodium Succinate (Solu-Medrol -) 40 mg IVPUSH DAILY [facility] Last Admin: 12/06/19 10:32 Dose: 40 mg Multivitamins/Minerals (Infuvite Adult -) 10 ml IV DAILY [facility] Last Admin: 12/06/19 12:46 Dose: 10 ml Nicotine (Nicoderm Patch -) 21 mg TD DAILY [facility] Last Admin: 12/06/19 10:33 Dose: 21 mg Nifedipine (Procardia Xl -) 90 mg PO DAILY [facility] Last Admin: 12/05/19 09:12 Dose: Not Given Nystatin (Nystatin Oral Suspension -) 500,000 units PO Q6HPO [facility] Last Admin: 12/06/19 12:47 Dose: 500,000 units Pantoprazole Sodium (Protonix Iv) 40 mg IVPUSH DAILY [facility] Last Admin: 12/06/19 10:33 Dose: 40 mg Prednisone (Deltasone -) 40 mg PO DAILY [facility] Last Admin: 12/05/19 13:33 Dose: Not Given Sevelamer Carbonate (Renvela Powder Packet -) 1.6 gm GT TIDCM [facility] Last Admin: 12/06/19 08:02 Dose: Not Given Simethicone (Mylicon -) 80 mg PO QID [facility] Last Admin: 12/05/19 22:01 Dose: Not Given - Objective Vital Signs: Vital Signs Temperature 97.7 F 12/06/19 15:10 Pulse Rate 90 12/06/19 15:15 Respiratory Rate 18 12/06/19 15:15 Blood Pressure 156/77 12/06/19 15:15 O2 Sat by Pulse Oximetry (%) 95 12/05/19 20:22 Constitutional: Yes: Calm Eyes: Yes: Conjunctiva Clear HENT: Yes: Atraumatic Neck: Yes: Supple Cardiovascular: Yes: S1, S2 Respiratory: Yes: CTA Bilaterally Gastrointestinal: Yes: Normal Bowel Sounds, Soft Genitourinary: Yes: WNL Musculoskeletal: Yes: WNL Edema: No Neurological: Yes: Oriented Psychiatric: Yes: Oriented Labs: CBC, BMP 12/06/19 05:25 12/06/19 05:25 INR, PTT INR 1.00 (0.83-1.09) 12/02/19 05:40 Problem List - Problems (1) End stage renal disease Code(s): N18.6 - END STAGE RENAL DISEASE (2) HIV (human immunodeficiency virus infection) Code(s): B20 - HUMAN IMMUNODEFICIENCY VIRUS [HIV] DISEASE Assessment/Plan Current Medications Generic Name Dose Route Start Last Admin Trade Name Freq PRN Reason Stop Dose Admin Abacavir Sulfate 300 mg 11/25/19 22:00 12/05/19 22:01 Ziagen - PO Not Given BID [facility] Acetaminophen 650 mg 11/25/19 19:40 12/01/19 17:47 Tylenol - PO 650 mg Q6H PRN Administration PAIN LEVEL 6-10 Albuterol Sulfate 1 amp 11/26/19 14:47 11/28/19 00:30 Ventolin 0.083% Nebulizer Soln - NEB 1 amp Q4H PRN Administration SHORT OF BREATH/WHEEZING Albuterol/Ipratropium 1 amp 11/26/19 16:00 12/06/19 12:11 Duoneb - NEB 1 amp RQID [facility] Administration Benzocaine/Menthol 1 each 11/26/19 02:16 11/26/19 02:40 Cepacol Lozenge - MM 1 each PRN PRN Administration SORE THROAT Citalopram Hydrobromide 10 mg 11/26/19 10:00 12/05/19 09:11 Celexa - PO Not Given DAILY [facility] Clonidine HCl 0.1 mg 12/08/19 10:00 Catapres Tts Patch - TD We@1000 [facility] Famotidine 20 mg 11/25/19 22:00 12/05/19 22:01 Pepcid - PO Not Given HS [facility] Fluconazole 100 mg 11/26/19 10:00 02/16/20 09:12 Diflucan - PO Not Given DAILY [facility] Heparin Sodium (Porcine) 5,000 unit 12/06/19 13:27 Heparin - SQ 12/06/19 22:00 TID [facility] Sodium Chloride 250 mls @ 3,000 mls/hr 11/26/19 14:00 Normal Saline - IV PRN PRN Hypotension during Dialysis Amino Acids 1,000 mls @ 84 mls/hr 11/30/19 22:15 12/06/19 12:46 Clinimix - IV 84 mls/hr Q12H [facility] Administration Fat Emulsion Intravenous 250 mls @ 20.833 mls/hr 12/01/19 22:00 12/05/19 22: 29 Intralipid - IV 20.833 mls/hr DAILY@2200 [facility] Administration Labetalol HCl 300 mg 11/25/19 22:00 12/05/19 22:01 Normodyne - PO Not Given BID [facility] Lamivudine 50 mg 11/26/19 10:00 12/05/19 09:11 Epivir Oral Solution - PO Not Given DAILY [facility] Lidocaine/Aluminum/Magnesium/Simeth 5 ml 11/25/19 18:00 12/06/19 12:47 Magic Mouthwash *Sjr Formula* - MM 5 ml Q6HPO [facility] Administration Lidocaine/Prilocaine 1 applic 11/29/19 12:25 Emla - TP PRN PRN PAIN LEVEL 1 - 3 Losartan Potassium 100 mg 11/26/19 10:00 12/05/19 09:12 Cozaar - PO Not Given DAILY [facility] Melatonin 5 mg 12/02/19 22:00 Melatonin PO HS PRN INSOMNIA Methylprednisolone Sodium Succinate 40 mg 12/06/19 10:00 12/06/19 10:32 Solu-Medrol - IVPUSH 40 mg DAILY [facility] Administration Multivitamins/Minerals 10 ml 12/02/19 10:00 12/06/19 12:46 Infuvite Adult - IV 10 ml DAILY [facility] Administration Nicotine 21 mg 11/27/19 15:45 12/06/19 10:33 Nicoderm Patch - TD 21 mg DAILY [facility] Administration Nifedipine 90 mg 11/26/19 10:00 12/05/19 09:12 Procardia Xl - PO Not Given DAILY [facility] Nystatin 500,000 units 11/25/19 18:00 12/06/19 12:47 Nystatin Oral Suspension - PO 500,000 units Q6HPO [facility] Administration Pantoprazole Sodium 40 mg 12/03/19 10:00 12/06/19 10:33 Protonix Iv IVPUSH 40 mg DAILY [facility] Administration Prednisone 40 mg 12/05/19 12:45 12/05/19 13:33 Deltasone - PO Not Given DAILY [facility] Sevelamer Carbonate 1.6 gm 12/02/19 14:08 12/06/19 08:02 Renvela Powder Packet - GT Not Given TIDCM [facility] Simethicone 80 mg 11/28/19 22:15 12/05/19 22:01 Mylicon - PO Not Given QID [facility] 1. Shortness of breath 2. ESRD on HD 3. anemia 4. Hypertension 5. Hx of Cardiac arrest 6. HIV Plan - HD today - renal diet - bp stable today - monitor lytes - volume status is stable - steroids can contribute to elevated bun
[2019-12-06] MEDS: SIMETHICONE 80 MG TAB.CHEW (FP) PO SCH ×3 (16:05→22:00)
[2019-12-06] MEDS: CITALOPRAM HYDROBROMIDE 10 MG TABLET PO SCH (16:05)
[2019-12-06] MEDS: LOSARTAN POTASSIUM 50 MG TABLET (FP) PO SCH (16:05)
[2019-12-06] MEDS: FLUCONAZOLE 100 MG TABLET (UD) PO SCH (16:05)
[2019-12-06] MEDS: NIFEdipine E.R. 90 MG TABLET PO SCH (16:05)
[2019-12-06] MEDS: lamiVUDine 10 MG/1 ML BULK BOTTLE PO SCH (16:05)
[2019-12-06] MEDS: LABETALOL HCL 100 MG TABLET (FP) PO SCH ×2 (16:05→22:00)
[2019-12-06] MEDS: ABACAVIR SULFATE 300 MG TABLET PO SCH ×2 (16:06→22:00)
[2019-12-06] MEDS: DOLUTEGRAVIR SODIUM 50 MG TABLET (NON-FORMULARY) PO SCH (16:06)
[2019-12-06] MEDS ORDERED: LABETALOL HCL 5 MG/1 ML (100MG/20 ML VIAL) IVPUSH PRN (16:35)
--- NOTE | 2019-12-06 19:00 | PN ---
Progress Note (short form) - Note Progress Note: PAtient seen and examined Feels OK Last Vital Signs Temp Pulse Resp BP Pulse Ox 98.1 F 69 18 140/77 95 12/06/19 22:00 12/06/19 22:00 12/06/19 22:00 12/06/19 22:00 12/06/19 22:00 Cor: RSR, No murmurs, No gallops Lungs: Clear to P&A Abd: Soft, Normal bowel sounds, No organomegaly Ext:No significant edema LAbs/MEds reviewed A/P 69 year old male with HIV, COPD, ESRD on HD, Throat Ca s/p RTx 3 yrs. ago , Hx of cardiac arrest x 4, referred to ED by ID with complaints of SOB/cough/chest tightness/generalized weakness, odynophagia, 20lb wt. loss in 3 months on steroids/ s/p zosyn for COPD exacerbation Discussed with Gi team ENT and Speech and swallow eval noted will need pulmonary/ENT /anesthesis clearence prior to PEG tube Colonoscopy deferred as patient with swallowing issues and cant complete prep CT soft tissue neck/Chest w/contrast -- thyroid nodules. RML inflammatory/ interstitial thickening. f/uin 1month consider CT a/p for wt. loss w/u
[2019-12-06] MEDS: FAMOTIDINE 20 MG TABLET PO SCH (22:00)
[2019-12-07] MEDS: FAT EMULSIONS 250 ML IV SCH ×2 (02:00→22:14)
[2019-12-07] MEDS: AMINO ACIDS 4.25%/D5W 1,000 ML IV SCH ×3 (02:15→22:17)
[2019-12-07] MEDS ORDERED: PT OWN MED DRAWER 7, Y5N ONE ×2 (02:22→09:57)
[2019-12-07] MEDS: NYSTATIN 500,000 UNITS/5 ML SUSPENSION PO SCH ×4 (05:45→17:40)
[2019-12-07] MEDS: MAG HYDROX/ALH/SMC/DPHA/LIDO 240 ML MOUTHWASH MM SCH ×4 (05:45→17:40)
[2019-12-07 06:54] LABS: BASO % 0.2 % (0-2.0); HEMATOCRIT 34.7 % (35.4-49); HEMOGLOBIN 11.6 GM/dL (11.7-16.9); LYMPH % 14.6 % (8-40); MCH 33.2 pg (25.7-33.7); MCHC 33.5 g/dl (32.0-35.9); MEAN CELL VOLUME 99.1 fl (80-96); MEAN PLT VOLUME 9.6 fl (7.5-11.1); MONO % 10.7 % (3.8-10.2); NEUT % 74.5 % (42.8-82.8); PLATELET COUNT 154 K/MM3 (134-434); RDW 16.4 % (11.9-15.9); WHITE BLOOD COUNT 5.5 K/mm3 (4.0-10.0)
[2019-12-07] MEDS: ALBUTEROL SO4 2.5/IPRATROPIUM 0.5 INH SOL 3 ML VIAL.NEB. NEB SCH ×4 (07:20→21:20)
--- NOTE | 2019-12-07 07:21 | PN ---
Physical Exam: SUBJECTIVE: Patient seen and examined at bed aside , pt refuse NGT placement which is needed for PEG placement , seen by GI who requested cardiology and pulmonary clearance. no fever no chills, no chest pain , tolerating dialysis yesterday with no complication OBJECTIVE: Vital Signs Period Temp Pulse Resp BP Sys/Montes Pulse Ox Last 24 Hr 97.2 F-98.7 F 49-93 18-19 103-167/55-85 95-95 GENERAL: AAOx3 in NAD , with muffled voice , HEAD: NC/AT EYES: EOMI, Conjunctiva clear, sclera anicteric ENT: dry mucous membrane NECK: Supple, no JVD, LUNGS: CTA B/L HEART: RRR, , normal s1, s2, murmur no M/R/G ABDOMEN: Soft, ND, NT, +BS 4 Q, no CVA Tenderness LOWER EXTREMITIES: no edema, +2DP pulse, NEUROLOGICAL: No focal deficit. Normal speech. gait not observed. PSYCHIATRIC: Cooperative. Good eye contact. Appropriate mood and affect. SKIN: Warm, dry, Laboratory Results - last 24 hr 12/06/19 12/07/19 05:25 05:29 WBC 5.5 RBC 3.50 L Hgb 11.6 L Hct 34.7 L MCV 99.1 H MCH 33.2 MCHC 33.5 RDW 16.4 H Plt Count 154 MPV 9.6 Absolute Neuts (auto) 4.1 Neutrophils % 74.5 Lymphocytes % 14.6 D Monocytes % 10.7 H Eosinophils % 0.0 Basophils % 0.2 Nucleated RBC % 0 Sodium 132 L Potassium 4.3 Chloride 93 L Carbon Dioxide 19 L Anion Gap 21 H BUN > 150.0 H* Creatinine 11.7 H* Est GFR (CKD-EPI)AfAm 4.59 Est GFR (CKD-EPI)NonAf 3.96 Random Glucose 77 Calcium 8.4 L Phosphorus 8.2 H Total Bilirubin 1.2 H AST 13 L ALT 17 Alkaline Phosphatase 76 Total Protein 5.6 L Albumin 2.4 L Active Medications Generic Name Dose Route Start Last Admin Trade Name Freq PRN Reason Stop Dose Admin Abacavir Sulfate 300 mg 11/25/19 22:00 12/06/19 22:00 Ziagen - PO Not Given BID [facility] Acetaminophen 650 mg 11/25/19 19:40 02/12/20 17:47 Tylenol - PO 650 mg Q6H PRN Administration PAIN LEVEL 6-10 Albuterol Sulfate 1 amp 11/26/19 14:47 11/28/19 00:30 Ventolin 0.083% Nebulizer Soln - NEB 1 amp Q4H PRN Administration SHORT OF BREATH/WHEEZING Albuterol/Ipratropium 1 amp 11/26/19 16:00 12/06/19 20:30 Duoneb - NEB 1 amp RQID [facility] Administration Benzocaine/Menthol 1 each 11/26/19 02:16 11/26/19 02:40 Cepacol Lozenge - MM 1 each PRN PRN Administration SORE THROAT Citalopram Hydrobromide 10 mg 11/26/19 10:00 12/06/19 16:05 Celexa - PO Not Given DAILY [facility] Clonidine HCl 0.1 mg 12/08/19 10:00 Catapres Tts Patch - TD We@1000 [facility] Famotidine 20 mg 11/25/19 22:00 12/06/19 22:00 Pepcid - PO Not Given HS [facility] Fluconazole 100 mg 11/26/19 10:00 12/06/19 16:05 Diflucan - PO Not Given DAILY [facility] Sodium Chloride 250 mls @ 3,000 mls/hr 11/26/19 14:00 Normal Saline - IV PRN PRN Hypotension during Dialysis Amino Acids 1,000 mls @ 84 mls/hr 11/30/19 22:15 12/07/19 02:15 Clinimix - IV 84 mls/hr Q12H [facility] Administration Fat Emulsion Intravenous 250 mls @ 20.833 mls/hr 12/01/19 22:00 12/07/19 02: 00 Intralipid - IV 20.833 mls/hr DAILY@2200 [facility] Administration Labetalol HCl 300 mg 11/25/19 22:00 12/06/19 22:00 Normodyne - PO Not Given BID [facility] Labetalol HCl 10 mg 12/06/19 16:35 Normodyne Injection - IVPUSH ONCE PRN HYPERTENSION Lamivudine 50 mg 11/26/19 10:00 12/06/19 16:05 Epivir Oral Solution - PO Not Given DAILY [facility] Lidocaine/Aluminum/Magnesium/Simeth 5 ml 11/25/19 18:00 02/18/20 05:45 Magic Mouthwash *Sjr Formula* - MM 5 ml Q6HPO [facility] Administration Lidocaine/Prilocaine 1 applic 11/29/19 12:25 Emla - TP PRN PRN PAIN LEVEL 1 - 3 Losartan Potassium 100 mg 11/26/19 10:00 12/06/19 16:05 Cozaar - PO Not Given DAILY [facility] Melatonin 5 mg 12/02/19 22:00 12/06/19 21:58 Melatonin PO 5 mg HS PRN Administration INSOMNIA Methylprednisolone Sodium Succinate 40 mg 12/06/19 10:00 12/06/19 10:32 Solu-Medrol - IVPUSH 40 mg DAILY [facility] Administration Multivitamins/Minerals 10 ml 12/02/19 10:00 12/06/19 12:46 Infuvite Adult - IV 10 ml DAILY [facility] Administration Nicotine 21 mg 11/27/19 15:45 12/06/19 10:33 Nicoderm Patch - TD 21 mg DAILY [facility] Administration Nifedipine 90 mg 11/26/19 10:00 12/06/19 16:05 Procardia Xl - PO Not Given DAILY [facility] Nystatin 500,000 units 11/25/19 18:00 12/07/19 05:45 Nystatin Oral Suspension - PO 500,000 units Q6HPO [facility] Administration Pantoprazole Sodium 40 mg 12/03/19 10:00 12/06/19 10:33 Protonix Iv IVPUSH 40 mg DAILY [facility] Administration Prednisone 40 mg 12/05/19 12:45 12/05/19 13:33 Deltasone - PO Not Given DAILY [facility] Sevelamer Carbonate 1.6 gm 12/02/19 14:08 12/06/19 18:44 Renvela Powder Packet - GT Not Given TIDCM [facility] Simethicone 80 mg 11/28/19 22:15 12/06/19 22:00 Mylicon - PO Not Given QID [facility] CBC, BMP 12/07/19 05:29 12/07/19 05:29 ASSESSMENT/PLAN: 69 y/o M, pmh of HIV, throat cancer s/p radiation at [place], COPD not on home O2, ESRD (on dialysis M/W/F), cardiac arreswt x4 (last arrest was last month), presented to the ED because of SOB. #Acute copd exacerbation * improving , cont Sulomedrol and broncho dilators , switch to po prednisone 40 mg daily # Dysphagia , pharyngeal phase for solid and liquids 2/2 radiation therapy * seen by ENT with no mass or lesion noted possible infection * MBS done with high risk of aspiration recommend npo follow repeat MBS today * cont clinimix and lipisds and multivitamins * if MBS still with high risk aspiration IR will place PEG tube, pt ofelia like to do any thing to prolonged his life (planned for Friday ) * CT of neck shows multiple hypodense thyroid nodules - will need US as outpatient * HOLD ASA for 7 days for PEG next week Friday per IR * NGT placed * ENT evaluation appreciated - laryngoscopy showed coating of thick yellow/ crusted material on endolarynx * start Tube feeding * repeat MBS Friday follow up results #Oral thrush * ID consulted * cont Diflucan 10 mg po daily through NGT #ESRD * Nephrology consulted: Dr. Pereyra * HD today 2.5 leter removed * cont HD #HIV * last CD4 in 600s 11/16/2019 * Resume pts home meds #Throat Ca s/p radiation * w/ underlying dysphagia, mucositic changes in throat * cover for oral candidiasis w/ oral fluconazole 200mg * Heme Onc evaluation for mucositis #LORNA Lung lesion # COPD * bronchodilators * dc Sulo-medrol 40 Q 8hr , start prednsione 40 mg po daily * Pulmonary consulted * primary vs mets. * CT Chest 11/03- severe COPD, no consolidation, Tiny cavity in LORNA 7mm w/ mild thickening and questionable, b/l posterior CV pleural effusion. Cardiomegaly mild, aneurysmal dilation of ascending aorta 4.5cm in AP dimension. Exophytic left renal pole cyst and indeterminate exophytic lesion on right mid kidney laterally as well as posteriorly 1.6 and .8 cm. #HTN, uncontrolled * cont labetolol, nefidipine losartan * add clonidine patch and Hydralizin IV PRN due to uncontrolled BP * monitor closely #Depression/Anxiety * continue Celexa. # nicotine dependence cont nicotin patch #HLD * Continue Statin. # H/O cardiac arrest #DVT ppx * Heparin SQ. 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 - New Patient This patient is new to me today: No - Critical Care Critical Care patient: No - Discharge Referral Referred to [facility] Med P.C.: No ATTENDING PHYSICIAN STATEMENT I saw and evaluated the patient. I reviewed the resident's note and discussed the case with the resident. I agree with the resident's findings and plan as documented. SUBJECTIVE: OBJECTIVE: ASSESSMENT AND PLAN:
[2019-12-07 07:43] LABS: ALBUMIN 2.3 g/dl (3.4-5.0); BILIRUBIN,TOTAL 0.5 mg/dL (0.2-1); BLOOD UREA NITROGEN 84.5 mg/dL (7-18); MAGNESIUM 2.1 mg/dL (1.8-2.4); PHOSPHOROUS 5.6 mg/dL (2.5-4.9); POTASSIUM 3.5 mmol/L (3.5-5.1); TOT PROT 5.5 g/dl (6.4-8.2)
[2019-12-07 07:47] LABS: CREATININE 7.6 mg/dL (0.55-1.3)
[2019-12-07] MEDS: SEVELAMER CARBONATE 0.8 GM POWDER PACKET GT SCH ×3 (07:59→17:40)
--- NOTE | 2019-12-07 08:38 | PN ---
Teaching Attending Note Name of Resident: Bravo Quinonez ATTENDING PHYSICIAN STATEMENT I saw and evaluated the patient. I reviewed the resident's note and discussed the case with the resident. I agree with the resident's findings and plan as documented. SUBJECTIVE: OBJECTIVE: Vital Signs Temperature 98 F 12/07/19 06:30 Pulse Rate 81 12/07/19 06:30 Respiratory Rate 18 12/07/19 06:30 Blood Pressure 146/84 12/07/19 06:30 O2 Sat by Pulse Oximetry (%) 95 12/07/19 03:09 General: Elderly man, sick looking comfortable, not in distress HEENT; mucous membranes moist, +anemia, no jaundice, PERRLA, no nystagmus Neck: No JVD, supple, no bruit, thyroid palpably normal, normal carotid pulsations. Chest: Nontender, bilateral basal rales. CVS: S1-S2 regular no murmur/gallop/rub Abdomen: Nondistended, soft, bowel sounds present. Extremities: No edema., No cough tenderness, pulses present CLERICAL AIDE: AO X3 , no gross motor sensory deficit CBC, BMP 12/07/19 05:29 12/07/19 05:29 Active Medications Abacavir Sulfate (Ziagen -) 300 mg PO BID [facility] Last Admin: 12/06/19 22:00 Dose: Not Given Acetaminophen (Tylenol -) 650 mg PO Q6H PRN PRN Reason: PAIN LEVEL 6-10 Last Admin: 12/01/19 17:47 Dose: 650 mg Albuterol Sulfate (Ventolin 0.083% Nebulizer Soln -) 1 amp NEB Q4H PRN PRN Reason: SHORT OF BREATH/WHEEZING Last Admin: 11/28/19 00:30 Dose: 1 amp Albuterol/Ipratropium (Duoneb -) 1 amp NEB RQID [facility] Last Admin: 12/06/19 20:30 Dose: 1 amp Benzocaine/Menthol (Cepacol Lozenge -) 1 each MM PRN PRN PRN Reason: SORE THROAT Last Admin: 11/26/19 02:40 Dose: 1 each Citalopram Hydrobromide (Celexa -) 10 mg PO DAILY [facility] Last Admin: 12/06/19 16:05 Dose: Not Given Clonidine HCl (Catapres Tts Patch -) 0.1 mg TD We@1000 [facility] Famotidine (Pepcid -) 20 mg PO HS [facility] Last Admin: 12/06/19 22:00 Dose: Not Given Fluconazole (Diflucan -) 100 mg PO DAILY [facility] Last Admin: 12/06/19 16:05 Dose: Not Given Sodium Chloride (Normal Saline -) 250 mls @ 3,000 mls/hr IV PRN PRN PRN Reason: Hypotension during Dialysis Amino Acids (Clinimix -) 1,000 mls @ 84 mls/hr IV Q12H [facility] Last Admin: 12/07/19 02:15 Dose: 84 mls/hr Fat Emulsion Intravenous (Intralipid -) 250 mls @ 20.833 mls/hr IV DAILY@2200 [facility] Last Admin: 12/07/19 02:00 Dose: 20.833 mls/hr Labetalol HCl (Normodyne -) 300 mg PO BID [facility] Last Admin: 12/06/19 22:00 Dose: Not Given Labetalol HCl (Normodyne Injection -) 10 mg IVPUSH ONCE PRN PRN Reason: HYPERTENSION Lamivudine (Epivir Oral Solution -) 50 mg PO DAILY [facility] Last Admin: 12/06/19 16:05 Dose: Not Given Lidocaine/Aluminum/Magnesium/Simeth (Magic Mouthwash *Sjr Formula* -) 5 ml MM Q6HPO [facility] Last Admin: 12/07/19 05:45 Dose: 5 ml Lidocaine/Prilocaine (Emla -) 1 applic TP PRN PRN PRN Reason: PAIN LEVEL 1 - 3 Losartan Potassium (Cozaar -) 100 mg PO DAILY [facility] Last Admin: 12/06/19 16:05 Dose: Not Given Melatonin (Melatonin) 5 mg PO HS PRN PRN Reason: INSOMNIA Last Admin: 12/06/19 21:58 Dose: 5 mg Methylprednisolone Sodium Succinate (Solu-Medrol -) 40 mg IVPUSH DAILY [facility] Last Admin: 12/06/19 10:32 Dose: 40 mg Multivitamins/Minerals (Infuvite Adult -) 10 ml IV DAILY [facility] Last Admin: 12/06/19 12:46 Dose: 10 ml Nicotine (Nicoderm Patch -) 21 mg TD DAILY [facility] Last Admin: 12/06/19 10:33 Dose: 21 mg Nifedipine (Procardia Xl -) 90 mg PO DAILY [facility] Last Admin: 12/06/19 16:05 Dose: Not Given Nystatin (Nystatin Oral Suspension -) 500,000 units PO Q6HPO [facility] Last Admin: 12/07/19 05:45 Dose: 500,000 units Pantoprazole Sodium (Protonix Iv) 40 mg IVPUSH DAILY [facility] Last Admin: 12/06/19 10:33 Dose: 40 mg Prednisone (Deltasone -) 40 mg PO DAILY [facility] Last Admin: 12/05/19 13:33 Dose: Not Given Sevelamer Carbonate (Renvela Powder Packet -) 1.6 gm GT TIDCM [facility] Last Admin: 12/07/19 07:59 Dose: Not Given Simethicone (Mylicon -) 80 mg PO QID [facility] Last Admin: 12/06/19 22:00 Dose: Not Given ASSESSMENT AND PLAN:69 y/o M, pmh of HIV, throat cancer s/p radiation at [place], COPD , ESRD (on dialysis M/W/F), cardiac arrest x4 (last arrest was last month), presented to the ED because of SOB.
--- NOTE | 2019-12-07 09:07 | PN ---
Progress Note, Physician History of Present Illness: GI FOLLOW UP NOTE Patient examined and case discussed with Dr Sandy Patient is currently NPO after failing Barium swallow and being high risk for aspiration. Patient agrees to PEG tube insertion but is refusing NGT placement until PEG is inserted. Denies nausea, vomiting, abdominal pain, diarrhea, constipation, melena. - Current Medication List Current Medications: Active Medications Abacavir Sulfate (Ziagen -) 300 mg PO BID [facility] Last Admin: 12/06/19 22:00 Dose: Not Given Acetaminophen (Tylenol -) 650 mg PO Q6H PRN PRN Reason: PAIN LEVEL 6-10 Last Admin: 12/01/19 17:47 Dose: 650 mg Albuterol Sulfate (Ventolin 0.083% Nebulizer Soln -) 1 amp NEB Q4H PRN PRN Reason: SHORT OF BREATH/WHEEZING Last Admin: 11/28/19 00:30 Dose: 1 amp Albuterol/Ipratropium (Duoneb -) 1 amp NEB RQID [facility] Last Admin: 12/06/19 20:30 Dose: 1 amp Benzocaine/Menthol (Cepacol Lozenge -) 1 each MM PRN PRN PRN Reason: SORE THROAT Last Admin: 11/26/19 02:40 Dose: 1 each Citalopram Hydrobromide (Celexa -) 10 mg PO DAILY [facility] Last Admin: 12/06/19 16:05 Dose: Not Given Clonidine HCl (Catapres Tts Patch -) 0.1 mg TD We@1000 [facility] Famotidine (Pepcid -) 20 mg PO HS [facility] Last Admin: 12/06/19 22:00 Dose: Not Given Fluconazole (Diflucan -) 100 mg PO DAILY [facility] Last Admin: 12/06/19 16:05 Dose: Not Given Sodium Chloride (Normal Saline -) 250 mls @ 3,000 mls/hr IV PRN PRN PRN Reason: Hypotension during Dialysis Amino Acids (Clinimix -) 1,000 mls @ 84 mls/hr IV Q12H [facility] Last Admin: 12/07/19 02:15 Dose: 84 mls/hr Fat Emulsion Intravenous (Intralipid -) 250 mls @ 20.833 mls/hr IV DAILY@2200 [facility] Last Admin: 12/07/19 02:00 Dose: 20.833 mls/hr Labetalol HCl (Normodyne -) 300 mg PO BID [facility] Last Admin: 12/06/19 22:00 Dose: Not Given Labetalol HCl (Normodyne Injection -) 10 mg IVPUSH ONCE PRN PRN Reason: HYPERTENSION Lamivudine (Epivir Oral Solution -) 50 mg PO DAILY [facility] Last Admin: 12/06/19 16:05 Dose: Not Given Lidocaine/Aluminum/Magnesium/Simeth (Magic Mouthwash *Sjr Formula* -) 5 ml MM Q6HPO [facility] Last Admin: 12/07/19 05:45 Dose: 5 ml Lidocaine/Prilocaine (Emla -) 1 applic TP PRN PRN PRN Reason: PAIN LEVEL 1 - 3 Losartan Potassium (Cozaar -) 100 mg PO DAILY [facility] Last Admin: 12/06/19 16:05 Dose: Not Given Melatonin (Melatonin) 5 mg PO HS PRN PRN Reason: INSOMNIA Last Admin: 12/06/19 21:58 Dose: 5 mg Methylprednisolone Sodium Succinate (Solu-Medrol -) 40 mg IVPUSH DAILY [facility] Last Admin: 12/06/19 10:32 Dose: 40 mg Multivitamins/Minerals (Infuvite Adult -) 10 ml IV DAILY [facility] Last Admin: 12/06/19 12:46 Dose: 10 ml Nicotine (Nicoderm Patch -) 21 mg TD DAILY [facility] Last Admin: 12/06/19 10:33 Dose: 21 mg Nifedipine (Procardia Xl -) 90 mg PO DAILY [facility] Last Admin: 12/06/19 16:05 Dose: Not Given Nystatin (Nystatin Oral Suspension -) 500,000 units PO Q6HPO [facility] Last Admin: 12/07/19 05:45 Dose: 500,000 units Pantoprazole Sodium (Protonix Iv) 40 mg IVPUSH DAILY [facility] Last Admin: 12/06/19 10:33 Dose: 40 mg Prednisone (Deltasone -) 40 mg PO DAILY [facility] Last Admin: 12/05/19 13:33 Dose: Not Given Sevelamer Carbonate (Renvela Powder Packet -) 1.6 gm GT TIDCM [facility] Last Admin: 12/07/19 07:59 Dose: Not Given Simethicone (Mylicon -) 80 mg PO QID [facility] Last Admin: 12/06/19 22:00 Dose: Not Given - Objective Vital Signs: Vital Signs Temperature 98 F 02/18/20 06:30 Pulse Rate 81 12/07/19 06:30 Respiratory Rate 18 12/07/19 06:30 Blood Pressure 146/84 12/07/19 06:30 O2 Sat by Pulse Oximetry (%) 95 12/07/19 03:09 Constitutional: Yes: No Distress, Calm Eyes: Yes: Conjunctiva Clear HENT: Yes: Atraumatic Cardiovascular: Yes: Regular Rate and Rhythm Respiratory: Yes: Regular, Rhonchi Gastrointestinal: Yes: Normal Bowel Sounds, Soft Neurological: Yes: Alert, Oriented Psychiatric: Yes: Alert, Oriented Labs: CBC, BMP 12/07/19 05:29 12/07/19 05:29 INR, PTT INR 1.00 (0.83-1.09) 12/02/19 05:40 <Deirdre Lowry - Last Filed: 12/07/19 09:04> - Current Medication List Current Medications: Active Medications Abacavir Sulfate (Ziagen -) 300 mg PO BID [facility] Last Admin: 12/07/19 09:54 Dose: Not Given Acetaminophen (Tylenol -) 650 mg PO Q6H PRN PRN Reason: PAIN LEVEL 6-10 Last Admin: 12/01/19 17:47 Dose: 650 mg Albuterol Sulfate (Ventolin 0.083% Nebulizer Soln -) 1 amp NEB Q4H PRN PRN Reason: SHORT OF BREATH/WHEEZING Last Admin: 11/28/19 00:30 Dose: 1 amp Albuterol/Ipratropium (Duoneb -) 1 amp NEB RQID [facility] Last Admin: 12/07/19 16:13 Dose: Not Given Benzocaine/Menthol (Cepacol Lozenge -) 1 each MM PRN PRN PRN Reason: SORE THROAT Last Admin: 11/26/19 02:40 Dose: 1 each Citalopram Hydrobromide (Celexa -) 10 mg PO DAILY [facility] Last Admin: 12/07/19 09:53 Dose: Not Given Clonidine HCl (Catapres Tts Patch -) 0.1 mg TD We@1000 [facility] Epoetin Donovan (Procrit -) 10,000 unit SQ ONCE ONE Stop: 12/08/19 13:02 Famotidine (Pepcid -) 20 mg PO HS [facility] Last Admin: 12/06/19 22:00 Dose: Not Given Fluconazole (Diflucan -) 100 mg PO DAILY [facility] Last Admin: 12/07/19 09:53 Dose: Not Given Sodium Chloride (Normal Saline -) 250 mls @ 3,000 mls/hr IV PRN PRN PRN Reason: Hypotension during Dialysis Amino Acids (Clinimix -) 1,000 mls @ 84 mls/hr IV Q12H [facility] Last Admin: 12/07/19 15:35 Dose: 84 mls/hr Fat Emulsion Intravenous (Intralipid -) 250 mls @ 20.833 mls/hr IV DAILY@2200 [facility] Last Admin: 12/07/19 02:00 Dose: 20.833 mls/hr Labetalol HCl (Normodyne -) 300 mg PO BID [facility] Last Admin: 12/07/19 09:53 Dose: Not Given Labetalol HCl (Normodyne Injection -) 10 mg IVPUSH ONCE PRN PRN Reason: HYPERTENSION Lamivudine (Epivir Oral Solution -) 50 mg PO DAILY [facility] Last Admin: 12/07/19 09:53 Dose: Not Given Lidocaine/Aluminum/Magnesium/Simeth (Magic Mouthwash *Sjr Formula* -) 5 ml MM Q6HPO [facility] Last Admin: 12/07/19 17:40 Dose: Not Given Lidocaine/Prilocaine (Emla -) 1 applic TP PRN PRN PRN Reason: PAIN LEVEL 1 - 3 Lorazepam (Ativan Injection -) 1 mg IVPUSH ONCE ONE Stop: 12/07/19 22:01 Losartan Potassium (Cozaar -) 100 mg PO DAILY [facility] Last Admin: 12/07/19 09:53 Dose: Not Given Melatonin (Melatonin) 5 mg PO HS PRN PRN Reason: INSOMNIA Last Admin: 12/06/19 21:58 Dose: 5 mg Methylprednisolone Sodium Succinate (Solu-Medrol -) 40 mg IVPUSH DAILY [facility] Last Admin: 12/07/19 10:04 Dose: 40 mg Multivitamins/Minerals (Infuvite Adult -) 10 ml IV DAILY [facility] Last Admin: 12/07/19 15:35 Dose: 10 ml Nicotine (Nicoderm Patch -) 21 mg TD DAILY [facility] Last Admin: 12/07/19 10:01 Dose: 21 mg Nifedipine (Procardia Xl -) 90 mg PO DAILY [facility] Last Admin: 12/07/19 09:54 Dose: Not Given Nystatin (Nystatin Oral Suspension -) 500,000 units PO Q6HPO [facility] Last Admin: 12/07/19 17:40 Dose: Not Given Pantoprazole Sodium (Protonix Iv) 40 mg IVPUSH DAILY [facility] Last Admin: 12/07/19 10:01 Dose: 40 mg Prednisone (Deltasone -) 40 mg PO DAILY [facility] Last Admin: 12/05/19 13:33 Dose: Not Given Sevelamer Carbonate (Renvela Powder Packet -) 1.6 gm GT TIDCM [facility] Last Admin: 12/07/19 17:40 Dose: Not Given Simethicone (Mylicon -) 80 mg PO QID [facility] Last Admin: 12/07/19 17:40 Dose: Not Given - Objective Vital Signs: Vital Signs Temperature 97.9 F 12/07/19 14:00 Pulse Rate 75 12/07/19 14:00 Respiratory Rate 22 H 12/07/19 10:00 Blood Pressure 137/70 12/07/19 14:00 O2 Sat by Pulse Oximetry (%) 96 12/07/19 09:00 Labs: CBC, BMP 12/07/19 05:29 12/07/19 05:29 INR, PTT INR 1.00 (0.83-1.09) 12/02/19 05:40 <Maverick Sandy - Last Filed: 12/07/19 17:47> Problem List - Problems (1) Throat pain Assessment/Plan: >R/o secondary to radiation vs pharnygitis >Barium Swallow results reviewed, High risk for aspiration >NPO >Pantoprazole Code(s): R07.0 - PAIN IN THROAT (2) Dysphagia Assessment/Plan: >R/o secondary to radiation vs pharnygitis >Barium Swallow results reviewed and high risk for aspiration >NPO >ENT recommendations reviewed >patient will most likely need Gtube placement for nutrition and medication administration >PATIENT WILL NEED CARDIOLOGY AND PULMONARY CONSULT FOR MEDICAL CLEARANCE PRIOR TO PEG TUBE INSERTION Code(s): R13.10 - DYSPHAGIA, UNSPECIFIED <Deirdre Lowry - Last Filed: 12/07/19 09:04> - Problems (1) Throat pain Code(s): R07.0 - PAIN IN THROAT <Maverick Sandy - Last Filed: 12/07/19 17:47>
[2019-12-07] MEDS: LOSARTAN POTASSIUM 50 MG TABLET (FP) PO SCH (09:53)
[2019-12-07] MEDS: CITALOPRAM HYDROBROMIDE 10 MG TABLET PO SCH (09:53)
[2019-12-07] MEDS: LABETALOL HCL 100 MG TABLET (FP) PO SCH ×2 (09:53→22:14)
[2019-12-07] MEDS: FLUCONAZOLE 100 MG TABLET (UD) PO SCH (09:53)
[2019-12-07] MEDS: lamiVUDine 10 MG/1 ML BULK BOTTLE PO SCH (09:53)
[2019-12-07] MEDS: SIMETHICONE 80 MG TAB.CHEW (FP) PO SCH ×4 (09:53→22:15)
[2019-12-07] MEDS: ABACAVIR SULFATE 300 MG TABLET PO SCH ×2 (09:54→22:16)
[2019-12-07] MEDS: NIFEdipine E.R. 90 MG TABLET PO SCH (09:54)
[2019-12-07] MEDS: DOLUTEGRAVIR SODIUM 50 MG TABLET (NON-FORMULARY) PO SCH (09:54)
[2019-12-07] MEDS: NICOTINE 21 MG/24 HOURS TOPICAL PATCH TD SCH (10:01)
[2019-12-07] MEDS: PANTOPRAZOLE SODIUM 40 MG VIAL IVPUSH SCH (10:01)
[2019-12-07] MEDS: methylPREDNISolone NA SUCC 40 MG/1 ML VIAL IVPUSH SCH (10:04)
--- NOTE | 2019-12-07 11:36 | PN ---
Progress Note, Physician History of Present Illness: pulmonary awake,feeling better,-resp distress,throat discomfort improving - Current Medication List Current Medications: Active Medications Abacavir Sulfate (Ziagen -) 300 mg PO BID [facility] Last Admin: 12/07/19 09:54 Dose: Not Given Acetaminophen (Tylenol -) 650 mg PO Q6H PRN PRN Reason: PAIN LEVEL 6-10 Last Admin: 12/01/19 17:47 Dose: 650 mg Albuterol Sulfate (Ventolin 0.083% Nebulizer Soln -) 1 amp NEB Q4H PRN PRN Reason: SHORT OF BREATH/WHEEZING Last Admin: 11/28/19 00:30 Dose: 1 amp Albuterol/Ipratropium (Duoneb -) 1 amp NEB RQID [facility] Last Admin: 12/06/19 20:30 Dose: 1 amp Benzocaine/Menthol (Cepacol Lozenge -) 1 each MM PRN PRN PRN Reason: SORE THROAT Last Admin: 11/26/19 02:40 Dose: 1 each Citalopram Hydrobromide (Celexa -) 10 mg PO DAILY [facility] Last Admin: 12/07/19 09:53 Dose: Not Given Clonidine HCl (Catapres Tts Patch -) 0.1 mg TD We@1000 [facility] Famotidine (Pepcid -) 20 mg PO HS [facility] Last Admin: 12/06/19 22:00 Dose: Not Given Fluconazole (Diflucan -) 100 mg PO DAILY [facility] Last Admin: 12/07/19 09:53 Dose: Not Given Sodium Chloride (Normal Saline -) 250 mls @ 3,000 mls/hr IV PRN PRN PRN Reason: Hypotension during Dialysis Amino Acids (Clinimix -) 1,000 mls @ 84 mls/hr IV Q12H [facility] Last Admin: 12/07/19 02:15 Dose: 84 mls/hr Fat Emulsion Intravenous (Intralipid -) 250 mls @ 20.833 mls/hr IV DAILY@2200 [facility] Last Admin: 12/07/19 02:00 Dose: 20.833 mls/hr Labetalol HCl (Normodyne -) 300 mg PO BID [facility] Last Admin: 12/07/19 09:53 Dose: Not Given Labetalol HCl (Normodyne Injection -) 10 mg IVPUSH ONCE PRN PRN Reason: HYPERTENSION Lamivudine (Epivir Oral Solution -) 50 mg PO DAILY [facility] Last Admin: 12/07/19 09:53 Dose: Not Given Lidocaine/Aluminum/Magnesium/Simeth (Magic Mouthwash *Sjr Formula* -) 5 ml MM Q6HPO [facility] Last Admin: 12/07/19 05:45 Dose: 5 ml Lidocaine/Prilocaine (Emla -) 1 applic TP PRN PRN PRN Reason: PAIN LEVEL 1 - 3 Losartan Potassium (Cozaar -) 100 mg PO DAILY [facility] Last Admin: 12/07/19 09:53 Dose: Not Given Melatonin (Melatonin) 5 mg PO HS PRN PRN Reason: INSOMNIA Last Admin: 12/06/19 21:58 Dose: 5 mg Methylprednisolone Sodium Succinate (Solu-Medrol -) 40 mg IVPUSH DAILY [facility] Last Admin: 12/07/19 10:04 Dose: 40 mg Multivitamins/Minerals (Infuvite Adult -) 10 ml IV DAILY [facility] Last Admin: 12/06/19 12:46 Dose: 10 ml Nicotine (Nicoderm Patch -) 21 mg TD DAILY [facility] Last Admin: 12/07/19 10:01 Dose: 21 mg Nifedipine (Procardia Xl -) 90 mg PO DAILY [facility] Last Admin: 12/07/19 09:54 Dose: Not Given Nystatin (Nystatin Oral Suspension -) 500,000 units PO Q6HPO [facility] Last Admin: 12/07/19 05:45 Dose: 500,000 units Pantoprazole Sodium (Protonix Iv) 40 mg IVPUSH DAILY [facility] Last Admin: 12/07/19 10:01 Dose: 40 mg Prednisone (Deltasone -) 40 mg PO DAILY [facility] Last Admin: 12/05/19 13:33 Dose: Not Given Sevelamer Carbonate (Renvela Powder Packet -) 1.6 gm GT TIDCM [facility] Last Admin: 12/07/19 07:59 Dose: Not Given Simethicone (Mylicon -) 80 mg PO QID [facility] Last Admin: 12/07/19 09:53 Dose: Not Given - Objective Vital Signs: Vital Signs Temperature 98.5 F 12/07/19 10:00 Pulse Rate 108 H 12/07/19 10:00 Respiratory Rate 22 H 12/07/19 10:00 Blood Pressure 145/58 L 12/07/19 10:00 O2 Sat by Pulse Oximetry (%) 95 12/07/19 03:09 Constitutional: Yes: Calm, Thin Eyes: Yes: WNL HENT: Yes: WNL Neck: Yes: WNL Cardiovascular: Yes: Regular Rate and Rhythm, S1, S2 Respiratory: Yes: Rhonchi (few rhonchi) Gastrointestinal: Yes: Normal Bowel Sounds, Soft Extremities: Yes: WNL Edema: No Labs: CBC, BMP 12/07/19 05:29 12/07/19 05:29 Assessment/Plan Problem List - Problems (1) COPD exacerbation Code(s): J44.1 - CHRONIC OBSTRUCTIVE PULMONARY DISEASE W (ACUTE) EXACERBATION (2) Anemia Code(s): D64.9 - ANEMIA, UNSPECIFIED Qualifiers: Anemia type: unspecified type Qualified Code(s): D64.9 - Anemia, unspecified (3) Anemia, chronic disease Code(s): D63.8 - ANEMIA IN OTHER CHRONIC DISEASES CLASSIFIED ELSEWHERE (4) CKD (chronic kidney disease) requiring chronic dialysis Code(s): N18.6 - END STAGE RENAL DISEASE; Z99.2 - DEPENDENCE ON RENAL DIALYSIS (5) End stage renal disease Code(s): N18.6 - END STAGE RENAL DISEASE (6) HIV (human immunodeficiency virus infection) Code(s): B20 - HUMAN IMMUNODEFICIENCY VIRUS [HIV] DISEASE (7) HTN (hypertension) Code(s): I10 - ESSENTIAL (PRIMARY) HYPERTENSION (8) Hyperlipidemia Code(s): E78.5 - HYPERLIPIDEMIA, UNSPECIFIED Qualifiers: (10) COPD exacerbation Code(s): J44.1 - CHRONIC OBSTRUCTIVE PULMONARY DISEASE W (ACUTE) EXACERBATION (11) Shortness of breath Code(s): R06.02 - SHORTNESS OF BREATH Prednisone BD TX Standing and PRN Supplemental O2 as needed No smoking was counseled VTE prophylaxis HD per Renal ASPIRATION PRECAUTIONS DR MARK
--- NOTE | 2019-12-07 12:12 | PN ---
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 Swallow palpated with reduced excursion. ENT performed Fiberoptic laryngoscopy 11/30. No gross masses or lesions, but the endolarynx appears to have a coating of thickened yellow/crusted material bilaterally. Piriform sinuses are clear. no base of tongue nor epiglottic lesions or masses seen. Finding: endolarynx superinfection/mucus possibly thrush MBS 11/30- aspiration on all trials. repeat MBS - persistent aspiration Plan is PEG insertion via IR (if pt agrees t temporary NGT placement for proceduce vs PEG/GI)
--- NOTE | 2019-12-07 13:00 | PN ---
Progress Note, Physician Chief Complaint: The patient seen and examined in his room. On bed. Feels weak. Refused NG tube placement. For possible PEG placement. Had uneventful HD yesterday. - Current Medication List Current Medications: Active Medications Abacavir Sulfate (Ziagen -) 300 mg PO BID [facility] Last Admin: 12/07/19 09:54 Dose: Not Given Acetaminophen (Tylenol -) 650 mg PO Q6H PRN PRN Reason: PAIN LEVEL 6-10 Last Admin: 12/01/19 17:47 Dose: 650 mg Albuterol Sulfate (Ventolin 0.083% Nebulizer Soln -) 1 amp NEB Q4H PRN PRN Reason: SHORT OF BREATH/WHEEZING Last Admin: 11/28/19 00:30 Dose: 1 amp Albuterol/Ipratropium (Duoneb -) 1 amp NEB RQID [facility] Last Admin: 12/07/19 12:15 Dose: 1 amp Benzocaine/Menthol (Cepacol Lozenge -) 1 each MM PRN PRN PRN Reason: SORE THROAT Last Admin: 11/26/19 02:40 Dose: 1 each Citalopram Hydrobromide (Celexa -) 10 mg PO DAILY [facility] Last Admin: 12/07/19 09:53 Dose: Not Given Clonidine HCl (Catapres Tts Patch -) 0.1 mg TD We@1000 [facility] Famotidine (Pepcid -) 20 mg PO HS [facility] Last Admin: 12/06/19 22:00 Dose: Not Given Fluconazole (Diflucan -) 100 mg PO DAILY [facility] Last Admin: 12/07/19 09:53 Dose: Not Given Sodium Chloride (Normal Saline -) 250 mls @ 3,000 mls/hr IV PRN PRN PRN Reason: Hypotension during Dialysis Amino Acids (Clinimix -) 1,000 mls @ 84 mls/hr IV Q12H [facility] Last Admin: 12/07/19 02:15 Dose: 84 mls/hr Fat Emulsion Intravenous (Intralipid -) 250 mls @ 20.833 mls/hr IV DAILY@2200 [facility] Last Admin: 12/07/19 02:00 Dose: 20.833 mls/hr Labetalol HCl (Normodyne -) 300 mg PO BID [facility] Last Admin: 12/07/19 09:53 Dose: Not Given Labetalol HCl (Normodyne Injection -) 10 mg IVPUSH ONCE PRN PRN Reason: HYPERTENSION Lamivudine (Epivir Oral Solution -) 50 mg PO DAILY [facility] Last Admin: 12/07/19 09:53 Dose: Not Given Lidocaine/Aluminum/Magnesium/Simeth (Magic Mouthwash *Sjr Formula* -) 5 ml MM Q6HPO [facility] Last Admin: 12/07/19 05:45 Dose: 5 ml Lidocaine/Prilocaine (Emla -) 1 applic TP PRN PRN PRN Reason: PAIN LEVEL 1 - 3 Losartan Potassium (Cozaar -) 100 mg PO DAILY [facility] Last Admin: 12/07/19 09:53 Dose: Not Given Melatonin (Melatonin) 5 mg PO HS PRN PRN Reason: INSOMNIA Last Admin: 12/06/19 21:58 Dose: 5 mg Methylprednisolone Sodium Succinate (Solu-Medrol -) 40 mg IVPUSH DAILY [facility] Last Admin: 12/07/19 10:04 Dose: 40 mg Multivitamins/Minerals (Infuvite Adult -) 10 ml IV DAILY [facility] Last Admin: 12/06/19 12:46 Dose: 10 ml Nicotine (Nicoderm Patch -) 21 mg TD DAILY [facility] Last Admin: 12/07/19 10:01 Dose: 21 mg Nifedipine (Procardia Xl -) 90 mg PO DAILY [facility] Last Admin: 12/07/19 09:54 Dose: Not Given Nystatin (Nystatin Oral Suspension -) 500,000 units PO Q6HPO [facility] Last Admin: 12/07/19 05:45 Dose: 500,000 units Pantoprazole Sodium (Protonix Iv) 40 mg IVPUSH DAILY [facility] Last Admin: 12/07/19 10:01 Dose: 40 mg Prednisone (Deltasone -) 40 mg PO DAILY [facility] Last Admin: 12/05/19 13:33 Dose: Not Given Sevelamer Carbonate (Renvela Powder Packet -) 1.6 gm GT TIDCM [facility] Last Admin: 12/07/19 07:59 Dose: Not Given Simethicone (Mylicon -) 80 mg PO QID [facility] Last Admin: 12/07/19 09:53 Dose: Not Given - Objective Vital Signs: Vital Signs Temperature 98.5 F 12/07/19 10:00 Pulse Rate 108 H 12/07/19 10:00 Respiratory Rate 22 H 12/07/19 10:00 Blood Pressure 145/58 L 12/07/19 10:00 O2 Sat by Pulse Oximetry (%) 95 12/07/19 03:09 Constitutional: Yes: Anxious, Mild Distress HENT: Yes: Atraumatic Cardiovascular: Yes: Regular Rate and Rhythm, S1, S2 Respiratory: Yes: CTA Bilaterally, Diminished, Poor Air Entry, Stridor Gastrointestinal: Yes: Normal Bowel Sounds, Soft Edema: No Neurological: Yes: Alert, Oriented Labs: CBC, BMP 12/07/19 05:29 12/07/19 05:29 INR, PTT INR 1.00 (0.83-1.09) 12/02/19 05:40 Problem List - Problems (1) COPD exacerbation Code(s): J44.1 - CHRONIC OBSTRUCTIVE PULMONARY DISEASE W (ACUTE) EXACERBATION (2) Dysphagia Code(s): R13.10 - DYSPHAGIA, UNSPECIFIED (3) Throat pain Code(s): R07.0 - PAIN IN THROAT (4) Weakness Code(s): R53.1 - WEAKNESS (5) Anemia Code(s): D64.9 - ANEMIA, UNSPECIFIED Qualifiers: Anemia type: unspecified type Qualified Code(s): D64.9 - Anemia, unspecified (6) End stage renal disease Code(s): N18.6 - END STAGE RENAL DISEASE (7) HIV (human immunodeficiency virus infection) Code(s): B20 - HUMAN IMMUNODEFICIENCY VIRUS [HIV] DISEASE (9) Shortness of breath Code(s): R06.02 - SHORTNESS OF BREATH Assessment/Plan 69 year old male with pmhx of esrd, hiv, copd, and s/p cardiac arrest who presents to the ER with shortness of breath. The patient has dysphagea, and is at high risk for aspiration. 1. ESRD on HD 2. Shortness of breath 3. Throat pain/fullness/dysphagia 4. COPD 5. HIV 6. Anemia in CKD 7. Renal Osteodystrophy 8. High Aspiration risk The patient had uneventful HD yesterday. Next HD scheduled for tomorrow. Viola Connor MD
[2019-12-07] MEDS: MULTIVIT INJ. ADULT COMBO WITH VIT K 1 COMBO 10 ML VIAL IV SCH (15:35)
[2019-12-07] MEDS ORDERED: LORazepam 2 MG/ML SDV VIAL IVPUSH ONE ×2 (16:07→22:00)
[2019-12-07] MEDS: FAMOTIDINE 20 MG TABLET PO SCH (22:15)
[2019-12-08] MEDS: MAG HYDROX/ALH/SMC/DPHA/LIDO 240 ML MOUTHWASH MM SCH ×5 (01:11→23:59)
[2019-12-08] MEDS: NYSTATIN 500,000 UNITS/5 ML SUSPENSION PO SCH ×4 (01:11→23:59)
[2019-12-08] MEDS: AMINO ACIDS 4.25%/D5W 1,000 ML IV SCH ×3 (03:24→22:50)
--- NOTE | 2019-12-08 07:26 | PN ---
Physical Exam: SUBJECTIVE: Patient seen and examined at bed aside , NGT placed by me yaesterday , dislodged at 3 am and replaced by night team , pt had recieved all the contrast prep and ready to PEG today no fever no chills, no chest pain , tolerating dialysis with no complication OBJECTIVE: Vital Signs Period Temp Pulse Resp BP Sys/Montes Pulse Ox Last 24 Hr 97.7 F-98.5 F 73-108 20-22 134-158/58-85 95-96 GENERAL: AAOx3 in NAD , with muffled voice , HEAD: NC/AT EYES: EOMI, Conjunctiva clear, sclera anicteric ENT: dry mucous membrane NECK: Supple, no JVD, LUNGS: CTA B/L HEART: RRR, , normal s1, s2, murmur no M/R/G ABDOMEN: Soft, ND, NT, +BS 4 Q, no CVA Tenderness LOWER EXTREMITIES: no edema, +2DP pulse, NEUROLOGICAL: No focal deficit. Normal speech. gait not observed. PSYCHIATRIC: Cooperative. Good eye contact. Appropriate mood and affect. SKIN: Warm, dry, Laboratory Results - last 24 hr 12/06/19 12/07/19 16:40 05:29 Sodium 136 Potassium 3.5 Chloride 97 L Carbon Dioxide 28 Anion Gap 11 BUN 84.5 H Creatinine 7.6 H* Est GFR (CKD-EPI)AfAm 7.74 Est GFR (CKD-EPI)NonAf 6.68 Random Glucose 107 H Calcium 8.0 L Phosphorus 5.6 H Magnesium 2.1 Total Bilirubin 0.5 AST 12 L ALT 16 Alkaline Phosphatase 76 Total Protein 5.5 L Albumin 2.3 L Hep Bs Antigen Negative Hep C Ab Diagnostic <0.1 Active Medications Generic Name Dose Route Start Last Admin Trade Name Freq PRN Reason Stop Dose Admin Abacavir Sulfate 300 mg 11/25/19 22:00 12/07/19 22:16 Ziagen - PO 300 mg BID JIMENEZ Administration Acetaminophen 650 mg 11/25/19 19:40 12/01/19 17:47 Tylenol - PO 650 mg Q6H PRN Administration PAIN LEVEL 6-10 Albuterol Sulfate 1 amp 11/26/19 14:47 11/28/19 00:30 Ventolin 0.083% Nebulizer Soln - NEB 1 amp Q4H PRN Administration SHORT OF BREATH/WHEEZING Albuterol/Ipratropium 1 amp 11/26/19 16:00 12/07/19 21:20 Duoneb - NEB 1 amp RQID JIMENEZ Administration Benzocaine/Menthol 1 each 11/26/19 02:16 11/26/19 02:40 Cepacol Lozenge - MM 1 each PRN PRN Administration SORE THROAT Citalopram Hydrobromide 10 mg 11/26/19 10:00 12/07/19 09:53 Celexa - PO Not Given DAILY [facility] Clonidine HCl 0.1 mg 12/08/19 10:00 Catapres Tts Patch - TD We@1000 [facility] Epoetin Donovan 10,000 unit 12/08/19 13:01 Procrit - SQ 12/08/19 13:02 ONCE ONE Famotidine 20 mg 11/25/19 22:00 12/07/19 22:15 Pepcid - PO 20 mg HS JIMENEZ Administration Fluconazole 100 mg 11/26/19 10:00 12/07/19 09:53 Diflucan - PO Not Given DAILY [facility] Sodium Chloride 250 mls @ 3,000 mls/hr 11/26/19 14:00 Normal Saline - IV PRN PRN Hypotension during Dialysis Amino Acids 1,000 mls @ 84 mls/hr 11/30/19 22:15 12/08/19 03:24 Clinimix - IV 84 mls/hr Q12H JIMENEZ Administration Fat Emulsion Intravenous 250 mls @ 20.833 mls/hr 12/01/19 22:00 12/07/19 22: 14 Intralipid - IV 20.833 mls/hr DAILY@2200 JIMENEZ Administration Labetalol HCl 300 mg 11/25/19 22:00 12/07/19 22:14 Normodyne - PO 300 mg BID JIMENEZ Administration Labetalol HCl 10 mg 12/06/19 16:35 Normodyne Injection - IVPUSH ONCE PRN HYPERTENSION Lamivudine 50 mg 11/26/19 10:00 12/07/19 09:53 Epivir Oral Solution - PO Not Given DAILY [facility] Lidocaine/Aluminum/Magnesium/Simeth 5 ml 11/25/19 18:00 12/08/19 05:09 Magic Mouthwash *Sjr Formula* - MM Not Given Q6HPO [facility] Lidocaine/Prilocaine 1 applic 11/29/19 12:25 Emla - TP PRN PRN PAIN LEVEL 1 - 3 Losartan Potassium 100 mg 11/26/19 10:00 12/07/19 09:53 Cozaar - PO Not Given DAILY JIMENEZ Melatonin 5 mg 12/02/19 22:00 12/06/19 21:58 Melatonin PO 5 mg HS PRN Administration INSOMNIA Methylprednisolone Sodium Succinate 40 mg 12/06/19 10:00 12/07/19 10:04 Solu-Medrol - IVPUSH 40 mg DAILY JIMENEZ Administration Multivitamins/Minerals 10 ml 12/02/19 10:00 12/07/19 15:35 Infuvite Adult - IV 10 ml DAILY JIMENEZ Administration Nicotine 21 mg 11/27/19 15:45 12/07/19 10:01 Nicoderm Patch - TD 21 mg DAILY JIMENEZ Administration Nifedipine 90 mg 11/26/19 10:00 12/07/19 09:54 Procardia Xl - PO Not Given DAILY JIMENEZ Nystatin 500,000 units 11/25/19 18:00 12/08/19 05:09 Nystatin Oral Suspension - PO Not Given Q6HPO JIMENEZ Pantoprazole Sodium 40 mg 12/03/19 10:00 12/07/19 10:01 Protonix Iv IVPUSH 40 mg DAILY JIMENEZ Administration Prednisone 40 mg 12/05/19 12:45 12/05/19 13:33 Deltasone - PO Not Given DAILY JIMENEZ Sevelamer Carbonate 1.6 gm 12/02/19 14:08 12/07/19 17:40 Renvela Powder Packet - GT Not Given TIDCM JIMENEZ Simethicone 80 mg 11/28/19 22:15 12/07/19 22:15 Mylicon - PO 80 mg QID JIMENEZ Administration CBC, BMP 12/07/19 05:29 12/07/19 05:29 ASSESSMENT/PLAN: 69 y/o M, pmh of HIV, throat cancer s/p radiation at [place], COPD not on home O2, ESRD (on dialysis M/W/F), cardiac arreswt x4 (last arrest was last month), presented to the ED because of SOB. #Acute copd exacerbation * improving , cont Sulomedrol and broncho dilators , switch to po prednisone 40 mg daily # Dysphagia , pharyngeal phase for solid and liquids 2/2 radiation therapy * seen by ENT with no mass or lesion noted possible infection * MBS done with high risk of aspiration recommend npo follow repeat MBS today * cont clinimix and lipisds and multivitamins * if MBS still with high risk aspiration IR will place PEG tube, pt ofelia like to do any thing to prolonged his life (planned for Friday ) * CT of neck shows multiple hypodense thyroid nodules - will need US as outpatient * HOLD ASA for 7 days for PEG next week Friday per IR * NGT placed * ENT evaluation appreciated - laryngoscopy showed coating of thick yellow/ crusted material on endolarynx * start Tube feeding * repeat MBS Friday follow up results #Oral thrush * ID consulted * cont Diflucan 10 mg po daily through NGT #ESRD * Nephrology consulted: Dr. Pereyra * HD today 2.5 leter removed * cont HD #HIV * last CD4 in 600s 11/16/2019 * Resume pts home meds #Throat Ca s/p radiation * w/ underlying dysphagia, mucositic changes in throat * cover for oral candidiasis w/ oral fluconazole 200mg * Heme Onc evaluation for mucositis #LORNA Lung lesion # COPD * bronchodilators * dc Sulo-medrol 40 Q 8hr , start prednsione 40 mg po daily * Pulmonary consulted * primary vs mets. * CT Chest 11/03- severe COPD, no consolidation, Tiny cavity in LORNA 7mm w/ mild thickening and questionable, b/l posterior CV pleural effusion. Cardiomegaly mild, aneurysmal dilation of ascending aorta 4.5cm in AP dimension. Exophytic left renal pole cyst and indeterminate exophytic lesion on right mid kidney laterally as well as posteriorly 1.6 and .8 cm. #HTN, uncontrolled * cont labetolol, nefidipine losartan * add clonidine patch and Hydralizin IV PRN due to uncontrolled BP * monitor closely #Depression/Anxiety * continue Celexa. # nicotine dependence cont nicotin patch #HLD * Continue Statin. # H/O cardiac arrest #DVT ppx * Heparin SQ. 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 - New Patient This patient is new to me today: No - Critical Care Critical Care patient: No - Discharge Referral Referred to [facility] Med [facility].C[facility] No ATTENDING PHYSICIAN STATEMENT I saw and evaluated the patient. I reviewed the resident's note and discussed the case with the resident. I agree with the resident's findings and plan as documented. SUBJECTIVE: OBJECTIVE: ASSESSMENT AND PLAN:
[2019-12-08] MEDS: SEVELAMER CARBONATE 0.8 GM POWDER PACKET GT SCH ×3 (08:00→19:07)
[2019-12-08] MEDS: ALBUTEROL SO4 2.5/IPRATROPIUM 0.5 INH SOL 3 ML VIAL.NEB. NEB SCH ×4 (08:05→20:32)
[2019-12-08] MEDS: CITALOPRAM HYDROBROMIDE 10 MG TABLET PO SCH (10:00)
[2019-12-08] MEDS: ABACAVIR SULFATE 300 MG TABLET PO SCH ×2 (10:00→21:53)
[2019-12-08] MEDS: FLUCONAZOLE 100 MG TABLET (UD) PO SCH (10:00)
[2019-12-08] MEDS: LOSARTAN POTASSIUM 50 MG TABLET (FP) PO SCH (10:00)
[2019-12-08] MEDS ORDERED: cloNIDine-TTS 0.1 MG/24 HRS PATCH.TDWK TD SCH (10:00)
[2019-12-08] MEDS: DOLUTEGRAVIR SODIUM 50 MG TABLET (NON-FORMULARY) PO SCH (10:00)
[2019-12-08] MEDS: lamiVUDine 10 MG/1 ML BULK BOTTLE PO SCH (10:00)
[2019-12-08] MEDS: NIFEdipine E.R. 90 MG TABLET PO SCH (10:00)
[2019-12-08] MEDS: MULTIVIT INJ. ADULT COMBO WITH VIT K 1 COMBO 10 ML VIAL IV SCH (10:00)
[2019-12-08] MEDS: SIMETHICONE 80 MG TAB.CHEW (FP) PO SCH ×3 (10:00→21:53)
[2019-12-08] MEDS: LABETALOL HCL 100 MG TABLET (FP) PO SCH ×2 (10:00→21:53)
--- NOTE | 2019-12-08 10:02 | PN ---
Teaching Attending Note Name of Resident: Bravo Quinonez ATTENDING PHYSICIAN STATEMENT I saw and evaluated the patient. I reviewed the resident's note and discussed the case with the resident. I agree with the resident's findings and plan as documented. SUBJECTIVE: Patient is scheduled for PEG placement by IR OBJECTIVE: Vital Signs Temperature 97.8 F 12/08/19 06:00 Pulse Rate 73 12/08/19 06:00 Respiratory Rate 20 12/08/19 06:00 Blood Pressure 120/58 L 12/08/19 06:00 O2 Sat by Pulse Oximetry (%) 95 12/07/19 20:46 General: Elderly man, sick looking comfortable, not in distress HEENT; mucous membranes moist, +anemia, no jaundice, PERRLA, no nystagmus Neck: No JVD, supple, no bruit, thyroid palpably normal, normal carotid pulsations. Chest: Nontender, bilateral basal rales. CVS: S1-S2 regular no murmur/gallop/rub Abdomen: Nondistended, soft, bowel sounds present. Extremities: No edema., No cough tenderness, pulses present [employer]: AO X3 , no gross motor sensory deficit CBC, BMP 12/07/19 05:29 12/07/19 05:29 Active Medications Abacavir Sulfate (Ziagen -) 300 mg PO BID [facility] Last Admin: 12/07/19 22:16 Dose: 300 mg Acetaminophen (Tylenol -) 650 mg PO Q6H PRN PRN Reason: PAIN LEVEL 6-10 Last Admin: 12/01/19 17:47 Dose: 650 mg Albuterol Sulfate (Ventolin 0.083% Nebulizer Soln -) 1 amp NEB Q4H PRN PRN Reason: SHORT OF BREATH/WHEEZING Last Admin: 11/28/19 00:30 Dose: 1 amp Albuterol/Ipratropium (Duoneb -) 1 amp NEB RQID JIMENEZ Last Admin: 12/07/19 21:20 Dose: 1 amp Benzocaine/Menthol (Cepacol Lozenge -) 1 each MM PRN PRN PRN Reason: SORE THROAT Last Admin: 11/26/19 02:40 Dose: 1 each Citalopram Hydrobromide (Celexa -) 10 mg PO DAILY [facility] Last Admin: 12/07/19 09:53 Dose: Not Given Clonidine HCl (Catapres Tts Patch -) 0.1 mg TD We@1000 [facility] Epoetin Donovan (Procrit -) 10,000 unit SQ ONCE ONE Stop: 12/08/19 13:02 Famotidine (Pepcid -) 20 mg PO HS [facility] Last Admin: 12/07/19 22:15 Dose: 20 mg Fluconazole (Diflucan -) 100 mg PO DAILY [facility] Last Admin: 12/07/19 09:53 Dose: Not Given Sodium Chloride (Normal Saline -) 250 mls @ 3,000 mls/hr IV PRN PRN PRN Reason: Hypotension during Dialysis Amino Acids (Clinimix -) 1,000 mls @ 84 mls/hr IV Q12H [facility] Last Admin: 12/08/19 03:24 Dose: 84 mls/hr Fat Emulsion Intravenous (Intralipid -) 250 mls @ 20.833 mls/hr IV DAILY@2200 [facility] Last Admin: 12/07/19 22:14 Dose: 20.833 mls/hr Labetalol HCl (Normodyne -) 300 mg PO BID [facility] Last Admin: 12/07/19 22:14 Dose: 300 mg Labetalol HCl (Normodyne Injection -) 10 mg IVPUSH ONCE PRN PRN Reason: HYPERTENSION Lamivudine (Epivir Oral Solution -) 50 mg PO DAILY [facility] Last Admin: 12/07/19 09:53 Dose: Not Given Lidocaine/Aluminum/Magnesium/Simeth (Magic Mouthwash *Sjr Formula* -) 5 ml MM Q6HPO [facility] Last Admin: 12/08/19 05:09 Dose: Not Given Lidocaine/Prilocaine (Emla -) 1 applic TP PRN PRN PRN Reason: PAIN LEVEL 1 - 3 Losartan Potassium (Cozaar -) 100 mg PO DAILY [facility] Last Admin: 12/07/19 09:53 Dose: Not Given Melatonin (Melatonin) 5 mg PO HS PRN PRN Reason: INSOMNIA Last Admin: 12/06/19 21:58 Dose: 5 mg Methylprednisolone Sodium Succinate (Solu-Medrol -) 40 mg IVPUSH DAILY [facility] Last Admin: 12/07/19 10:04 Dose: 40 mg Multivitamins/Minerals (Infuvite Adult -) 10 ml IV DAILY [facility] Last Admin: 12/07/19 15:35 Dose: 10 ml Nicotine (Nicoderm Patch -) 21 mg TD DAILY [facility] Last Admin: 12/07/19 10:01 Dose: 21 mg Nifedipine (Procardia Xl -) 90 mg PO DAILY [facility] Last Admin: 12/07/19 09:54 Dose: Not Given Nystatin (Nystatin Oral Suspension -) 500,000 units PO Q6HPO [facility] Last Admin: 12/08/19 05:09 Dose: Not Given Pantoprazole Sodium (Protonix Iv) 40 mg IVPUSH DAILY [facility] Last Admin: 12/07/19 10:01 Dose: 40 mg Prednisone (Deltasone -) 40 mg PO DAILY [facility] Last Admin: 12/05/19 13:33 Dose: Not Given Sevelamer Carbonate (Renvela Powder Packet -) 1.6 gm GT TIDCM [facility] Last Admin: 12/07/19 17:40 Dose: Not Given Simethicone (Mylicon -) 80 mg PO QID [facility] Last Admin: 12/07/19 22:15 Dose: 80 mg 9 y/o M, pmh of HIV, throat cancer s/p radiation at [place], COPD , ESRD ( on dialysis M/W/F), cardiac arrest x4 (last arrest was last month), presented to the ED because of SOB. Plan: Schedule for PEG placement Problem List - Problems (1) COPD exacerbation Assessment/Plan: Continue current management improving Problems reviewed: Yes Code(s): J44.1 - CHRONIC OBSTRUCTIVE PULMONARY DISEASE W (ACUTE) EXACERBATION (2) Dysphagia Assessment/Plan: Due to oral thrush and previous surgery, evaluated by speech and swallow patient is scheduled for the PEG placement Problems reviewed: Yes Code(s): R13.10 - DYSPHAGIA, UNSPECIFIED (3) Anemia, chronic disease Assessment/Plan: Continue current management H&H stable Problems reviewed: Yes Code(s): D63.8 - ANEMIA IN OTHER CHRONIC DISEASES CLASSIFIED ELSEWHERE (4) Laryngeal cancer Assessment/Plan: S/p resection and RT Problems reviewed: Yes (5) CKD (chronic kidney disease) requiring chronic dialysis Assessment/Plan: As per nephrology recommendation Problems reviewed: Yes Code(s): N18.6 - END STAGE RENAL DISEASE; Z99.2 - DEPENDENCE ON RENAL DIALYSIS (6) HIV (human immunodeficiency virus infection) Assessment/Plan: Continue all home HIV medications Problems reviewed: Yes Code(s): B20 - HUMAN IMMUNODEFICIENCY VIRUS [HIV] DISEASE (7) HTN (hypertension) Assessment/Plan: Continue all home medication Problems reviewed: Yes Code(s): I10 - ESSENTIAL (PRIMARY) HYPERTENSION (8) Hyperlipidemia Assessment/Plan: Continue statin Problems reviewed: Yes Code(s): E78.5 - HYPERLIPIDEMIA, UNSPECIFIED Qualifiers:
[2019-12-08] MEDS ORDERED: PT OWN MED DRAWER 7, Y5N ONE ×2 (10:53→18:03)
[2019-12-08] MEDS ORDERED: GlUCAGON HUMAN RECOMBINANT 1 MG/VIAL ONE (11:03)
--- NOTE | 2019-12-08 11:12 | PN ---
Progress Note, STATISTICAL GENETICIST - Note Progress Note: Severe dysphonia. Swallow palpated with reduced excursion. ENT performed Fiberoptic laryngoscopy 11/30. No gross masses or lesions, but the endolarynx appears to have a coating of thickened yellow/crusted material bilaterally. Piriform sinuses are clear. no base of tongue nor epiglottic lesions or masses seen. Finding: endolarynx superinfection/mucous possibly thrush MBS 11/30- aspiration on all trials. repeat MBS - persistent aspiration PEG insertion today Reviewed wth PMD. Suggest speech/swallow tx as out pt and ENT f/u for possible intervention to improve glottic closure/ medialization of v cords?
--- NOTE | 2019-12-08 12:12 | PN ---
Progress Note, Physician Chief Complaint: The patient seen and examined in his room. On bed. Scheduled for PEG placement today. Appears weaker than yesterday. - Current Medication List Current Medications: Active Medications Abacavir Sulfate (Ziagen -) 300 mg PO BID [facility] Last Admin: 12/07/19 22:16 Dose: 300 mg Acetaminophen (Tylenol -) 650 mg PO Q6H PRN PRN Reason: PAIN LEVEL 6-10 Last Admin: 12/01/19 17:47 Dose: 650 mg Albuterol Sulfate (Ventolin 0.083% Nebulizer Soln -) 1 amp NEB Q4H PRN PRN Reason: SHORT OF BREATH/WHEEZING Last Admin: 11/28/19 00:30 Dose: 1 amp Albuterol/Ipratropium (Duoneb -) 1 amp NEB RQID [facility] Last Admin: 12/07/19 21:20 Dose: 1 amp Benzocaine/Menthol (Cepacol Lozenge -) 1 each MM PRN PRN PRN Reason: SORE THROAT Last Admin: 11/26/19 02:40 Dose: 1 each Citalopram Hydrobromide (Celexa -) 10 mg PO DAILY [facility] Last Admin: 12/07/19 09:53 Dose: Not Given Clonidine HCl (Catapres Tts Patch -) 0.1 mg TD We@1000 [facility] Epoetin Donovan (Procrit -) 10,000 unit SQ ONCE ONE Stop: 12/08/19 13:02 Famotidine (Pepcid -) 20 mg PO HS [facility] Last Admin: 12/07/19 22:15 Dose: 20 mg Fluconazole (Diflucan -) 100 mg PO DAILY [facility] Last Admin: 12/07/19 09:53 Dose: Not Given Sodium Chloride (Normal Saline -) 250 mls @ 3,000 mls/hr IV PRN PRN PRN Reason: Hypotension during Dialysis Amino Acids (Clinimix -) 1,000 mls @ 84 mls/hr IV Q12H [facility] Last Admin: 12/08/19 03:24 Dose: 84 mls/hr Fat Emulsion Intravenous (Intralipid -) 250 mls @ 20.833 mls/hr IV DAILY@2200 [facility] Last Admin: 12/07/19 22:14 Dose: 20.833 mls/hr Labetalol HCl (Normodyne -) 300 mg PO BID [facility] Last Admin: 12/07/19 22:14 Dose: 300 mg Labetalol HCl (Normodyne Injection -) 10 mg IVPUSH ONCE PRN PRN Reason: HYPERTENSION Lamivudine (Epivir Oral Solution -) 50 mg PO DAILY [facility] Last Admin: 12/07/19 09:53 Dose: Not Given Lidocaine/Aluminum/Magnesium/Simeth (Magic Mouthwash *Sjr Formula* -) 5 ml MM Q6HPO [facility] Last Admin: 12/08/19 05:09 Dose: Not Given Lidocaine/Prilocaine (Emla -) 1 applic TP PRN PRN PRN Reason: PAIN LEVEL 1 - 3 Losartan Potassium (Cozaar -) 100 mg PO DAILY [facility] Last Admin: 12/07/19 09:53 Dose: Not Given Melatonin (Melatonin) 5 mg PO HS PRN PRN Reason: INSOMNIA Last Admin: 12/06/19 21:58 Dose: 5 mg Methylprednisolone Sodium Succinate (Solu-Medrol -) 40 mg IVPUSH DAILY [facility] Last Admin: 12/07/19 10:04 Dose: 40 mg Multivitamins/Minerals (Infuvite Adult -) 10 ml IV DAILY [facility] Last Admin: 12/07/19 15:35 Dose: 10 ml Nicotine (Nicoderm Patch -) 21 mg TD DAILY [facility] Last Admin: 12/07/19 10:01 Dose: 21 mg Nifedipine (Procardia Xl -) 90 mg PO DAILY [facility] Last Admin: 12/07/19 09:54 Dose: Not Given Nystatin (Nystatin Oral Suspension -) 500,000 units PO Q6HPO [facility] Last Admin: 12/08/19 05:09 Dose: Not Given Pantoprazole Sodium (Protonix Iv) 40 mg IVPUSH DAILY [facility] Last Admin: 12/07/19 10:01 Dose: 40 mg Prednisone (Deltasone -) 40 mg PO DAILY [facility] Last Admin: 12/05/19 13:33 Dose: Not Given Sevelamer Carbonate (Renvela Powder Packet -) 1.6 gm GT TIDCM [facility] Last Admin: 12/08/19 08:00 Dose: Not Given Simethicone (Mylicon -) 80 mg PO QID [facility] Last Admin: 12/07/19 22:15 Dose: 80 mg - Objective Vital Signs: Vital Signs Temperature 97.8 F 12/08/19 06:00 Pulse Rate 73 12/08/19 11:31 Respiratory Rate 18 12/08/19 11:31 Blood Pressure 114/63 12/08/19 11:31 O2 Sat by Pulse Oximetry (%) 96 12/08/19 11:31 Constitutional: Yes: Cachectic HENT: Yes: Normocephalic Neck: Yes: Trachea Midline Cardiovascular: Yes: S1, S2 Respiratory: Yes: CTA Bilaterally, Diminished Gastrointestinal: Yes: Normal Bowel Sounds, Soft Genitourinary: No: Bladder Distention, CVA Tenderness - Left, CVA Tenderness - Right Musculoskeletal: Yes: Muscle Weakness Edema: No Neurological: Yes: Lethargy Labs: CBC, BMP 12/07/19 05:29 12/07/19 05:29 INR, PTT INR 1.00 (0.83-1.09) 12/02/19 05:40 Problem List - Problems (1) COPD exacerbation Code(s): J44.1 - CHRONIC OBSTRUCTIVE PULMONARY DISEASE W (ACUTE) EXACERBATION (2) Dysphagia Code(s): R13.10 - DYSPHAGIA, UNSPECIFIED (3) Throat pain Code(s): R07.0 - PAIN IN THROAT (4) Weakness Code(s): R53.1 - WEAKNESS (5) Anemia Code(s): D64.9 - ANEMIA, UNSPECIFIED Qualifiers: Anemia type: unspecified type Qualified Code(s): D64.9 - Anemia, unspecified (6) End stage renal disease Code(s): N18.6 - END STAGE RENAL DISEASE (7) HIV (human immunodeficiency virus infection) Code(s): B20 - HUMAN IMMUNODEFICIENCY VIRUS [HIV] DISEASE Assessment/Plan 69 year old male with pmhx of esrd, hiv, copd, and s/p cardiac arrest who presents to the ER with shortness of breath. The patient has dysphagea, and is at high risk for aspiration. 1. ESRD on HD 2. Shortness of breath 3. Throat pain/fullness/dysphagia 4. COPD 5. HIV 6. Anemia in CKD 7. Renal Osteodystrophy 8. High Aspiration risk 9. For PEG placement today. The patient will be given HD later today. HD orders are written and reviewed with the nurs Viola Connor MD
[2019-12-08] MEDS: PANTOPRAZOLE SODIUM 40 MG VIAL IVPUSH SCH (13:50)
[2019-12-08] MEDS: methylPREDNISolone NA SUCC 40 MG/1 ML VIAL IVPUSH SCH (13:50)
[2019-12-08] MEDS: NICOTINE 21 MG/24 HOURS TOPICAL PATCH TD SCH (14:00)
--- NOTE | 2019-12-08 15:46 | CON.CARD ---
Cardiology Consult (text) - Consultation Consultation Note: cc: sob hpi: 69 m hx hiv, dm, htn, hld, esrd on hd, copd, here with sob. Pt had peg earlier and still lethargic after procedure so hx from charts. Being treated for copd. Also had dysphagia from thrush so had peg placed. Per charts pt also had recent cardiac arrest at outside hospital. pmh: per hpi psh: peg social: no tob fam: non contributory ros: unable to obtain 2/2 ams meds: Home Medications Medication Instructions Recorded Abacavir Sulfate [Abacavir] 600 mg PO DAILY 11/26/19 Albuterol Sulfate Inhaler - 2 puff IH Q6H 11/26/19 [Ventolin HFA Inhaler -] Aspirin [ASA -] 81 mg PO DAILY 11/26/19 Citalopram Hydrobromide [Celexa -] 10 mg PO DAILY 11/26/19 Dolutegravir Sodium [Tivicay] 50 mg PO DAILY 11/26/19 Labetalol HCl 400 mg PO BID 11/26/19 Lamivudine [Epivir Hbv] 50 mg PO DAILY 11/26/19 Latanoprost 0.005% Eye Drops 1 drop OU HS 11/26/19 [Xalatan 0.005% Eye Drops -] Lidocaine/Prilocaine Cream [Emla -] 1 applic TP UTDICT 11/26/19 Ranitidine HCl 300 mg PO DAILY 11/26/19 Sevelamer Carbonate 1,600 mg PO TID 11/26/19 Sucroferric Oxyhydroxide [Velphoro] 500 mg PO TID 11/26/19 Umeclidinium Brm/Vilanterol Tr 1 each IH DAILY 11/26/19 [Anoro Ellipta 62.5-25 Mcg INH] pe: Vital Signs Period Temp Pulse Resp BP Sys/Montes Pulse Ox Last 24 Hr 97.2 F-98.4 F 61-80 18-22 103-158/51-85 95-98 nad no jvd rrr s1s2 no mrg cta bl ant, no accesory muscle use abd nd pos bs no jaundice diaphoresis pos dp pt no carotid bruits no le e/c/c lethargic Laboratory Last Values WBC 5.5 K/mm3 (4.0-10.0) 12/07/19 05:29 RBC 3.50 M/mm3 (4.00-5.60) L 12/07/19 05:29 Hgb 11.6 GM/dL (11.7-16.9) L 12/07/19 05:29 Hct 34.7 % (35.4-49) L 12/07/19 05:29 MCV 99.1 fl (80-96) H 12/07/19 05:29 MCH 33.2 pg (25.7-33.7) 12/07/19 05:29 MCHC 33.5 g/dl (32.0-35.9) 12/07/19 05:29 RDW 16.4 % (11.9-15.9) H 12/07/19 05:29 Plt Count 154 K/MM3 (134-434) 12/07/19 05:29 MPV 9.6 fl (7.5-11.1) 12/07/19 05:29 Absolute Neuts (auto) 4.1 K/mm3 (1.5-8.0) 12/07/19 05:29 Neutrophils % 74.5 % (42.8-82.8) 12/07/19 05:29 Neutrophils % (Manual) 87.0 % (42.8-82.8) H 12/02/19 05:40 Band Neutrophils % 0.0 % 12/02/19 05:40 Lymphocytes % 14.6 % (8-40) D 12/07/19 05:29 Lymphocytes % (Manual) 5.0 % (8-40) L D 12/02/19 05:40 Monocytes % 10.7 % (3.8-10.2) H 12/07/19 05:29 Monocytes % (Manual) 7 % (3.8-10.2) D 12/02/19 05:40 Eosinophils % 0.0 % (0-4.5) 12/07/19 05:29 Eosinophils % (Manual) 0.0 % (0-4.5) 12/02/19 05:40 Basophils % 0.2 % (0-2.0) 12/07/19 05:29 Basophils % (Manual) 0.0 % (0-2.0) 12/02/19 05:40 Myelocytes % (Man) 0 % (0-2) 12/02/19 05:40 Promyelocytes % (Man) 0 % (0-2) 12/02/19 05:40 Blast Cells % (Manual) 0 % (0-0) 12/02/19 05:40 Nucleated RBC % 0 % (0-0) 12/07/19 05:29 Metamyelocytes 0 % (0-2) 12/02/19 05:40 Hypochromia 0 12/02/19 05:40 Platelet Estimate Normal 12/02/19 05:40 Platelet Comment Present 11/27/19 06:26 Polychromasia 0 12/02/19 05:40 Poikilocytosis 0 12/02/19 05:40 Anisocytosis 1+ 12/02/19 05:40 Microcytosis 0 12/02/19 05:40 Macrocytosis 1+ 12/02/19 05:40 Spherocytes 1+ 11/27/19 06:26 Target Cells 1+ 11/29/19 06:45 Tear Drop Cells 1+ 11/29/19 06:45 Schistocytes 1+ 11/29/19 06:45 PT with INR 11.80 SEC (9.7-13.0) 12/02/19 05:40 INR 1.00 (0.83-1.09) 12/02/19 05:40 VBG pH 7.39 (7.31-7.41) 11/25/19 13:40 POC VBG pCO2 43.4 mmHg (38-52) 11/25/19 13:40 POC VBG pO2 < 49 mmHg (28-48) H 11/25/19 13:40 VBG HCO3 25.8 mmol/L (23-29) 11/25/19 13:40 VBG O2 Sat (Marley) 52.6 % (70-80) L 11/25/19 13:40 VBG Base Excess 1.1 meq/l (-2-2) 11/25/19 13:40 Sodium 136 mmol/L (136-145) 12/07/19 05:29 Potassium 3.5 mmol/L (3.5-5.1) 12/07/19 05:29 Chloride 97 mmol/L (98-107) L 12/07/19 05:29 Carbon Dioxide 28 mmol/L (21-32) 12/07/19 05:29 Anion Gap 11 MMOL/L (8-16) 12/07/19 05:29 BUN 84.5 mg/dL (7-18) H 12/07/19 05:29 Creatinine 7.6 mg/dL (0.55-1.3) H* 12/07/19 05:29 Est GFR (CKD-EPI)AfAm 7.74 12/07/19 05:29 Est GFR (CKD-EPI)NonAf 6.68 12/07/19 05:29 Random Glucose 107 mg/dL (74-106) H 12/07/19 05:29 Lactic Acid 1.7 mmol/L (0.4-2.0) 11/25/19 20:00 Calcium 8.0 mg/dL (8.5-10.1) L 12/07/19 05:29 Phosphorus 5.6 mg/dL (2.5-4.9) H 12/07/19 05:29 Magnesium 2.1 mg/dL (1.8-2.4) 12/07/19 05:29 Total Bilirubin 0.5 mg/dL (0.2-1) 12/07/19 05:29 AST 12 U/L (15-37) L 12/07/19 05:29 ALT 16 U/L (13-61) 12/07/19 05:29 Alkaline Phosphatase 76 U/L (45-117) 12/07/19 05:29 Creatine Kinase 98 U/L (26-308) 11/25/19 12:15 Troponin I 0.02 ng/ml (0.00-0.05) 11/25/19 21:50 Total Protein 5.5 g/dl (6.4-8.2) L 12/07/19 05:29 Albumin 2.3 g/dl (3.4-5.0) L 12/07/19 05:29 Hep Bs Antigen Negative (Negative) 12/06/19 16:40 Hep C Ab Diagnostic <0.1 s/co ratio (0.0-0.9) 12/06/19 16:40 Influenza A (Rapid) Negative (Negative) 11/25/19 16:30 Influenza B (Rapid) Negative (Negative) 11/25/19 16:30 RSV Rapid Negative (Negative) 11/25/19 16:30 echo 01/2018: nl lv/rv, mild mr, mod ar mibi 05/2019: mild inf ischemia, lvef 51% ecg: sr , nl intervals, lvh, no ischemic changes cxr: clear lungs tele: sr a/p: 69 m hx hiv, dm, htn, hld, esrd on hd, copd, here with sob. htn: -continue current meds esrd: -hd per renal sob, copd: -no signs chf or acs -cont steroids per pulm presumed cad: -recent nuclear stress test with mild ischemia, low risk finding, continue med management -cont bb, arb -resume asa when possible cardiac arrest: -per charts pt had several episodes of cardiac arrest, most recent was last month. details not available. check update echo to monitor lvef.
[2019-12-08] MEDS ORDERED: EPOETIN ALFA 10,000 UNIT/1 ML VIAL SQ ONE (18:30)
[2019-12-08] MEDS ORDERED: EPOETIN ALFA-EPBX 10,000 UNIT/ML VIAL SQ ONE (18:30)
[2019-12-08 19:29] LABS: BASO % 0.1 % (0-2.0); HEMOGLOBIN 10.6 GM/dL (11.7-16.9); LYMPH % 3.4 % (8-40); MCH 33.1 pg (25.7-33.7); MCHC 33.2 g/dl (32.0-35.9); MEAN CELL VOLUME 99.7 fl (80-96); MEAN PLT VOLUME 9.9 fl (7.5-11.1); MONO % 3.9 % (3.8-10.2); NEUT % 92.6 % (42.8-82.8); PLATELET COUNT 133 K/MM3 (134-434); RBC 3.21 M/mm3 (4.00-5.60); RDW 16.1 % (11.9-15.9); WHITE BLOOD COUNT 6.7 K/mm3 (4.0-10.0)
[2019-12-08 19:59] LABS: ALBUMIN 2.2 g/dl (3.4-5.0); BILIRUBIN,TOTAL 0.6 mg/dL (0.2-1); CALCIUM 7.8 mg/dL (8.5-10.1); MAGNESIUM 1.9 mg/dL (1.8-2.4); TOT PROT 5.3 g/dl (6.4-8.2)
[2019-12-08 20:07] LABS: BLOOD UREA NITROGEN 129.9 mg/dL (7-18); CREATININE 10.6 mg/dL (0.55-1.3)
[2019-12-08 20:33] LABS: ANISOCYTOSIS 1+; PLATELET ESTIMATE DECREASED
[2019-12-08] MEDS: FAMOTIDINE 20 MG TABLET PO SCH (21:53)
[2019-12-08] MEDS ORDERED: ACETAMINOPHEN 1000 MG/100 ML VIAL (NON FORMULARY) IVPB ONE (22:42)
[2019-12-08] MEDS: FAT EMULSIONS 250 ML IV SCH (22:50)
[2019-12-09] MEDS: NYSTATIN 500,000 UNITS/5 ML SUSPENSION PO SCH ×2 (06:02→12:00)
[2019-12-09] MEDS: MAG HYDROX/ALH/SMC/DPHA/LIDO 240 ML MOUTHWASH MM SCH ×2 (06:02→12:00)
[2019-12-09] MEDS: AMINO ACIDS 4.25%/D5W 1,000 ML IV SCH (07:00)
[2019-12-09 07:19] LABS: BASO % 0.2 % (0-2.0); HEMATOCRIT 34.4 % (35.4-49); HEMOGLOBIN 11.5 GM/dL (11.7-16.9); LYMPH % 4.6 % (8-40); MCHC 33.4 g/dl (32.0-35.9); MEAN CELL VOLUME 98.9 fl (80-96); MEAN PLT VOLUME 9.2 fl (7.5-11.1); NEUT % 91.2 % (42.8-82.8); PLATELET COUNT 138 K/MM3 (134-434); RBC 3.48 M/mm3 (4.00-5.60); RDW 16.2 % (11.9-15.9); WHITE BLOOD COUNT 11.3 K/mm3 (4.0-10.0)
--- NOTE | 2019-12-09 07:39 | PN ---
Physical Exam: SUBJECTIVE: Patient seen and examined at bed aside , , no fever no chills, no chest pain , tolerating dialysis with no complication PEG tube in place for X ray xonfirmation today with contrast OBJECTIVE: Vital Signs Period Temp Pulse Resp BP Sys/Montes Pulse Ox Last 24 Hr 97.2 F-98.4 F 61-89 18-22 103-158/51-83 96-98 GENERAL: AAOx3 in NAD , with muffled voice , HEAD: NC/AT EYES: EOMI, Conjunctiva clear, sclera anicteric ENT: dry mucous membrane NECK: Supple, no JVD, LUNGS: CTA B/L HEART: RRR, , normal s1, s2, murmur no M/R/G ABDOMEN: Soft, ND, NT, +BS 4 Q, no CVA Tenderness LOWER EXTREMITIES: no edema, +2DP pulse, NEUROLOGICAL: No focal deficit. Normal speech. gait not observed. PSYCHIATRIC: Cooperative. Good eye contact. Appropriate mood and affect. SKIN: Warm, dry, Laboratory Results - last 24 hr 12/08/19 12/08/19 18:10 18:10 WBC 6.7 RBC 3.21 L Hgb 10.6 L Hct 32.0 L MCV 99.7 H MCH 33.1 MCHC 33.2 RDW 16.1 H Plt Count 133 L MPV 9.9 Absolute Neuts (auto) 6.2 Total Counted 100 Neutrophils % 92.6 H D Neutrophils % (Manual) 91.0 H Band Neutrophils % 2.0 Lymphocytes % 3.4 L D Lymphocytes % (Manual) 4.0 L Monocytes % 3.9 Monocytes % (Manual) 3 L Eosinophils % 0.0 Basophils % 0.1 Nucleated RBC % 0 Platelet Estimate Decreased Platelet Comment No clumping noted Anisocytosis 1+ Microcytosis 1+ Sodium 126 L Potassium 4.0 Chloride 89 L Carbon Dioxide 21 Anion Gap 16 BUN 129.9 H* Creatinine 10.6 H* Est GFR (CKD-EPI)AfAm 5.18 Est GFR (CKD-EPI)NonAf 4.47 Random Glucose 118 H Calcium 7.8 L Phosphorus 6.0 H Magnesium 1.9 Total Bilirubin 0.6 AST 11 L ALT 11 L Alkaline Phosphatase 79 Total Protein 5.3 L Albumin 2.2 L Active Medications Generic Name Dose Route Start Last Admin Trade Name Freq PRN Reason Stop Dose Admin Abacavir Sulfate 300 mg 02/06/20 22:00 12/08/19 21:53 Ziagen - PO Not Given BID JIMENEZ Acetaminophen 650 mg 11/25/19 19:40 12/01/19 17:47 Tylenol - PO 650 mg Q6H PRN Administration PAIN LEVEL 6-10 Albuterol Sulfate 1 amp 11/26/19 14:47 11/28/19 00:30 Ventolin 0.083% Nebulizer Soln - NEB 1 amp Q4H PRN Administration SHORT OF BREATH/WHEEZING Albuterol/Ipratropium 1 amp 11/26/19 16:00 12/08/19 20:32 Duoneb - NEB 1 amp RQID JIMENEZ Administration Benzocaine/Menthol 1 each 11/26/19 02:16 11/26/19 02:40 Cepacol Lozenge - MM 1 each PRN PRN Administration SORE THROAT Citalopram Hydrobromide 10 mg 11/26/19 10:00 12/08/19 10:00 Celexa - PO Not Given DAILY JIMENEZ Clonidine HCl 0.1 mg 12/08/19 10:00 12/08/19 12:00 Catapres Tts Patch - TD Not Given We@1000 JIMENEZ Famotidine 20 mg 11/25/19 22:00 12/08/19 21:53 Pepcid - PO Not Given HS JIMENEZ Fluconazole 100 mg 11/26/19 10:00 12/08/19 10:00 Diflucan - PO Not Given DAILY JIMENEZ Sodium Chloride 250 mls @ 3,000 mls/hr 11/26/19 14:00 Normal Saline - IV PRN PRN Hypotension during Dialysis Amino Acids 1,000 mls @ 84 mls/hr 11/30/19 22:15 12/08/19 22:50 Clinimix - IV 84 mls/hr Q12H JIMENEZ Administration Fat Emulsion Intravenous 250 mls @ 20.833 mls/hr 12/01/19 22:00 12/08/19 22: 50 Intralipid - IV 20.833 mls/hr DAILY@2200 JIMENEZ Administration Labetalol HCl 300 mg 11/25/19 22:00 12/08/19 21:53 Normodyne - PO Not Given BID JIMENEZ Labetalol HCl 10 mg 12/06/19 16:35 Normodyne Injection - IVPUSH ONCE PRN HYPERTENSION Lamivudine 50 mg 11/26/19 10:00 12/08/19 10:00 Epivir Oral Solution - PO Not Given DAILY [facility] Lidocaine/Aluminum/Magnesium/Simeth 5 ml 11/25/19 18:00 12/09/19 06:02 Magic Mouthwash *Sjr Formula* - MM Not Given Q6HPO JIMENEZ Lidocaine/Prilocaine 1 applic 11/29/19 12:25 Emla - TP PRN PRN PAIN LEVEL 1 - 3 Losartan Potassium 100 mg 11/26/19 10:00 12/08/19 10:00 Cozaar - PO Not Given DAILY [facility] Melatonin 5 mg 12/02/19 22:00 12/06/19 21:58 Melatonin PO 5 mg HS PRN Administration INSOMNIA Methylprednisolone Sodium Succinate 40 mg 12/06/19 10:00 12/08/19 13:50 Solu-Medrol - IVPUSH 40 mg DAILY JIMENEZ Administration Multivitamins/Minerals 10 ml 12/02/19 10:00 12/08/19 10:00 Infuvite Adult - IV Not Given DAILY [facility] Nicotine 21 mg 11/27/19 15:45 12/08/19 14:00 Nicoderm Patch - TD 21 mg DAILY [facility] Administration Nifedipine 90 mg 11/26/19 10:00 12/08/19 10:00 Procardia Xl - PO Not Given DAILY [facility] Nystatin 500,000 units 11/25/19 18:00 12/09/19 06:02 Nystatin Oral Suspension - PO Not Given Q6HPO [facility] Pantoprazole Sodium 40 mg 12/03/19 10:00 12/08/19 13:50 Protonix Iv IVPUSH 40 mg DAILY [facility] Administration Prednisone 40 mg 12/05/19 12:45 12/05/19 13:33 Deltasone - PO Not Given DAILY [facility] Sevelamer Carbonate 1.6 gm 12/02/19 14:08 12/08/19 19:07 Renvela Powder Packet - GT Not Given TIDCM [facility] Simethicone 80 mg 11/28/19 22:15 12/08/19 21:53 Mylicon - PO Not Given QID [facility] CBC, BMP 12/09/19 06:10 12/09/19 06:10 ASSESSMENT/PLAN: 69 y/o M, pmh of HIV, throat cancer s/p radiation at [facility], COPD not on home O2, ESRD (on dialysis M/W/F), cardiac arreswt x4 (last arrest was last month), presented to the ED because of SOB. #Acute copd exacerbation improving , cont Sulomedrol and broncho dilators , switch to po prednisone 40 mg daily , taper over 5 days # Dysphagia , pharyngeal phase for solid and liquids 2/2 radiation therapy seen by ENT with no mass or lesion noted possible infection MBS done with high risk of aspiration recommend npo follow repeat MBS today cont clinimix and lipisds and multivitamins if MBS still with high risk aspiration IR will place PEG tube, pt ofelia like to do any thing to prolonged his life (planned for Friday ) CT of neck shows multiple hypodense thyroid nodules - will need US as outpatient HOLD ASA for 7 days for PEG next week Friday per IR NGT placed ENT evaluation appreciated - laryngoscopy showed coating of thick yellow/ crusted material on endolarynx start Tube feeding repeat MBS Friday follow up results #Oral thrush ID consulted cont Diflucan 10 mg po daily through NGT #ESRD Nephrology consulted: Dr. Pereyra HD today 2.5 leter removed cont HD #HIV last CD4 in 600s 11/16/2019 Resume pts home meds #Throat Ca s/p radiation w/ underlying dysphagia, mucositic changes in throat cover for oral candidiasis w/ oral fluconazole 200mg Heme Onc evaluation for mucositis #LORNA Lung lesion # COPD bronchodilators dc Sulo-medrol 40 Q 8hr , start prednsione 40 mg po daily Pulmonary consulted primary vs mets. CT Chest 11/03- severe COPD, no consolidation, Tiny cavity in LORNA 7mm w/ mild thickening and questionable, b/l posterior CV pleural effusion. Cardiomegaly mild, aneurysmal dilation of ascending aorta 4.5cm in AP dimension. Exophytic left renal pole cyst and indeterminate exophytic lesion on right mid kidney laterally as well as posteriorly 1.6 and .8 cm. #HTN, uncontrolled cont labetolol, nefidipine losartan add clonidine patch and Hydralizin IV PRN due to uncontrolled BP monitor closely #Depression/Anxiety continue Celexa. # nicotine dependence cont nicotin patch #HLD Continue Statin. # H/O cardiac arrest #DVT ppx Heparin SQ. hold night before procedure PEG # GI proph PPI # NGT placed for mediciation , started on clinimix and infuvit 10 ml and lipid sper automation developer # For PEG Tube placement today stephani consulted for feeding possible dc in am Visit type - Emergency Visit Emergency Visit: Yes ED Registration Date: 11/25/19 Care time: The patient presented to the Emergency Department on the above date and was hospitalized for further evaluation of their emergent condition. - New Patient This patient is new to me today: No - Critical Care Critical Care patient: No - Discharge Referral Referred to [facility] No ATTENDING PHYSICIAN STATEMENT I saw and evaluated the patient. I reviewed the resident's note and discussed the case with the resident. I agree with the resident's findings and plan as documented. SUBJECTIVE: OBJECTIVE: ASSESSMENT AND PLAN:
[2019-12-09 08:00] LABS: ALBUMIN 2.3 g/dl (3.4-5.0); BILIRUBIN,TOTAL 0.4 mg/dL (0.2-1); BLOOD UREA NITROGEN 57.8 mg/dL (7-18); CALCIUM 7.5 mg/dL (8.5-10.1); CREATININE 6.3 mg/dL (0.55-1.3); TOT PROT 5.5 g/dl (6.4-8.2)
[2019-12-09] MEDS: SEVELAMER CARBONATE 0.8 GM POWDER PACKET GT SCH ×2 (08:00→12:00)
[2019-12-09] MEDS: KCL 10 MEQ IVPB 10 MEQ/100 ML INFUS.BAG IVPB SCH ×2 (09:27→12:00)
--- NOTE | 2019-12-09 09:43 | PN ---
Teaching Attending Note Name of Resident: Bravo Quinonez ATTENDING PHYSICIAN STATEMENT I saw and evaluated the patient. I reviewed the resident's note and discussed the case with the resident. I agree with the resident's findings and plan as documented. SUBJECTIVE: Patient pulled NG tube, denies any nausea vomiting or abdominal distention status post PEG tube placement by IR yesterday PEG tube placed, OBJECTIVE: Vital Signs Temperature 98.3 F 12/09/19 06:00 Pulse Rate 88 12/09/19 06:00 Respiratory Rate 18 12/09/19 06:00 Blood Pressure 121/83 12/09/19 06:00 O2 Sat by Pulse Oximetry (%) 98 12/08/19 21:00 General: Elderly man, sick looking comfortable, not in distress HEENT; mucous membranes moist, +anemia, no jaundice, PERRLA, no nystagmus Neck: No JVD, supple, no bruit, thyroid palpably normal, normal carotid pulsations. Chest: Nontender, bilateral basal rales. CVS: S1-S2 regular no murmur/gallop/rub Abdomen: PEG tube in place, nondistended, soft, bowel sounds present. 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 69 y/o M, pmh of HIV, throat cancer s/p radiation at [place], COPD , ESRD ( on dialysis M/W/F), cardiac arrest x4 (last arrest was last month), presented to the ED because of SOB. Patient has radiation mucositis, with dysphagia, speech and swallow evaluated, recommended PEG tube placement, yesterday underwent IR guided PEG tube placement. Patient is constipated, no abdominal sign of small bowel obstruction, denies any nausea vomiting or abdominal pain, ileus changes can be because of mild hypokalemia consider p.o. KCl 30 mEq. Start PEG feeding after discussing with GI. Problem List - Problems (1) COPD exacerbation Assessment/Plan: Continue current management improving Code(s): J44.1 - CHRONIC OBSTRUCTIVE PULMONARY DISEASE W (ACUTE) EXACERBATION (2) Dysphagia Assessment/Plan: Due to oral thrush and previous surgery, evaluated by speech underwent PEG placement, KUB with contrast showed a small amount of gas and small distention suggestive of ileus can be due to hypokalemia , start PEG feeding after discussing with GI. 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 (5) CKD (chronic kidney disease) requiring chronic dialysis Assessment/Plan: As per nephrology recommendation Code(s): N18.6 - END STAGE RENAL DISEASE; Z99.2 - DEPENDENCE ON RENAL DIALYSIS (6) HIV (human immunodeficiency virus infection) Assessment/Plan: Continue all home HIV medications Code(s): B20 - HUMAN IMMUNODEFICIENCY VIRUS [HIV] DISEASE (7) HTN (hypertension) Assessment/Plan: Continue all home medication Code(s): I10 - ESSENTIAL (PRIMARY) HYPERTENSION (8) Hyperlipidemia Assessment/Plan: Continue statin Code(s): E78.5 - HYPERLIPIDEMIA, UNSPECIFIED Qualifiers: (9) Hypokalemia Assessment/Plan: Consider p.o. KCl 30 mEq after discussing with nephrology although patient has CKD Problems reviewed: Yes Code(s): E87.6 - HYPOKALEMIA
[2019-12-09 09:44] LABS: ANISOCYTOSIS 0; MACROCYTOSIS 0; PLATELET ESTIMATE DECREASED
[2019-12-09] MEDS: ALBUTEROL SO4 2.5/IPRATROPIUM 0.5 INH SOL 3 ML VIAL.NEB. NEB SCH ×2 (09:50→12:58)
[2019-12-09] MEDS: ABACAVIR SULFATE 300 MG TABLET PO SCH (10:00)
[2019-12-09] MEDS: lamiVUDine 10 MG/1 ML BULK BOTTLE PO SCH (10:00)
[2019-12-09] MEDS: LABETALOL HCL 100 MG TABLET (FP) PO SCH (10:00)
[2019-12-09] MEDS: CITALOPRAM HYDROBROMIDE 10 MG TABLET PO SCH (10:00)
[2019-12-09] MEDS: NIFEdipine E.R. 90 MG TABLET PO SCH (10:00)
[2019-12-09] MEDS: LOSARTAN POTASSIUM 50 MG TABLET (FP) PO SCH (10:00)
[2019-12-09] MEDS: MULTIVIT INJ. ADULT COMBO WITH VIT K 1 COMBO 10 ML VIAL IV SCH (10:00)
[2019-12-09] MEDS: DOLUTEGRAVIR SODIUM 50 MG TABLET (NON-FORMULARY) PO SCH (10:00)
[2019-12-09] MEDS: FLUCONAZOLE 100 MG TABLET (UD) PO SCH (10:00)
[2019-12-09] MEDS: methylPREDNISolone NA SUCC 40 MG/1 ML VIAL IVPUSH SCH (10:12)
[2019-12-09] MEDS: NICOTINE 21 MG/24 HOURS TOPICAL PATCH TD SCH (10:12)
[2019-12-09] MEDS: PANTOPRAZOLE SODIUM 40 MG VIAL IVPUSH SCH (10:12)
--- NOTE | 2019-12-09 10:46 | PN ---
Progress Note, Physician History of Present Illness: pulmonary alert,comfortable,-sob,pt s/p peg insertion tolerated procedure well w/o complications - Current Medication List Current Medications: Active Medications Abacavir Sulfate (Ziagen -) 300 mg PO BID [facility] Last Admin: 12/08/19 21:53 Dose: Not Given Acetaminophen (Tylenol -) 650 mg PO Q6H PRN PRN Reason: PAIN LEVEL 6-10 Last Admin: 12/01/19 17:47 Dose: 650 mg Albuterol Sulfate (Ventolin 0.083% Nebulizer Soln -) 1 amp NEB Q4H PRN PRN Reason: SHORT OF BREATH/WHEEZING Last Admin: 11/28/19 00:30 Dose: 1 amp Albuterol/Ipratropium (Duoneb -) 1 amp NEB RQID [facility] Last Admin: 12/09/19 09:50 Dose: 1 amp Benzocaine/Menthol (Cepacol Lozenge -) 1 each MM PRN PRN PRN Reason: SORE THROAT Last Admin: 11/26/19 02:40 Dose: 1 each Citalopram Hydrobromide (Celexa -) 10 mg PO DAILY [facility] Last Admin: 12/08/19 10:00 Dose: Not Given Clonidine HCl (Catapres Tts Patch -) 0.1 mg TD We@1000 [facility] Last Admin: 12/08/19 12:00 Dose: Not Given Famotidine (Pepcid -) 20 mg PO HS [facility] Last Admin: 12/08/19 21:53 Dose: Not Given Fluconazole (Diflucan -) 100 mg PO DAILY [facility] Last Admin: 12/08/19 10:00 Dose: Not Given Sodium Chloride (Normal Saline -) 250 mls @ 3,000 mls/hr IV PRN PRN PRN Reason: Hypotension during Dialysis Amino Acids (Clinimix -) 1,000 mls @ 84 mls/hr IV Q12H [facility] Last Admin: 12/08/19 22:50 Dose: 84 mls/hr Fat Emulsion Intravenous (Intralipid -) 250 mls @ 20.833 mls/hr IV DAILY@2200 [facility] Last Admin: 12/08/19 22:50 Dose: 20.833 mls/hr Labetalol HCl (Normodyne -) 300 mg PO BID [facility] Last Admin: 12/08/19 21:53 Dose: Not Given Labetalol HCl (Normodyne Injection -) 10 mg IVPUSH ONCE PRN PRN Reason: HYPERTENSION Lamivudine (Epivir Oral Solution -) 50 mg PO DAILY [facility] Last Admin: 12/08/19 10:00 Dose: Not Given Lidocaine/Aluminum/Magnesium/Simeth (Magic Mouthwash *Sjr Formula* -) 5 ml MM Q6HPO [facility] Last Admin: 12/09/19 06:02 Dose: Not Given Lidocaine/Prilocaine (Emla -) 1 applic TP PRN PRN PRN Reason: PAIN LEVEL 1 - 3 Losartan Potassium (Cozaar -) 100 mg PO DAILY [facility] Last Admin: 12/08/19 10:00 Dose: Not Given Melatonin (Melatonin) 5 mg PO HS PRN PRN Reason: INSOMNIA Last Admin: 12/06/19 21:58 Dose: 5 mg Methylprednisolone Sodium Succinate (Solu-Medrol -) 40 mg IVPUSH DAILY [facility] Last Admin: 12/09/19 10:12 Dose: 40 mg Multivitamins/Minerals (Infuvite Adult -) 10 ml IV DAILY [facility] Last Admin: 12/08/19 10:00 Dose: Not Given Nicotine (Nicoderm Patch -) 21 mg TD DAILY [facility] Last Admin: 12/09/19 10:12 Dose: 21 mg Nifedipine (Procardia Xl -) 90 mg PO DAILY [facility] Last Admin: 12/08/19 10:00 Dose: Not Given Nystatin (Nystatin Oral Suspension -) 500,000 units PO Q6HPO [facility] Last Admin: 12/09/19 06:02 Dose: Not Given Pantoprazole Sodium (Protonix Iv) 40 mg IVPUSH DAILY [facility] Last Admin: 12/09/19 10:12 Dose: 40 mg Prednisone (Deltasone -) 40 mg PO DAILY [facility] Last Admin: 12/05/19 13:33 Dose: Not Given Sevelamer Carbonate (Renvela Powder Packet -) 1.6 gm GT TIDCM [facility] Last Admin: 12/08/19 19:07 Dose: Not Given Simethicone (Mylicon -) 80 mg PO QID [facility] Last Admin: 12/08/19 21:53 Dose: Not Given - Objective Vital Signs: Vital Signs Temperature 98.3 F 12/09/19 06:00 Pulse Rate 88 12/09/19 06:00 Respiratory Rate 18 12/09/19 06:00 Blood Pressure 121/83 12/09/19 06:00 O2 Sat by Pulse Oximetry (%) 98 12/08/19 21:00 Constitutional: Yes: Calm, Thin Eyes: Yes: WNL HENT: Yes: WNL Neck: Yes: WNL Cardiovascular: Yes: Regular Rate and Rhythm, S1, S2 Respiratory: Yes: Rhonchi (few rhonchi) Gastrointestinal: Yes: Normal Bowel Sounds, Soft Extremities: Yes: WNL Edema: No Labs: CBC, BMP 12/09/19 06:10 12/09/19 06:10 INR, PTT INR 1.00 (0.83-1.09) 12/02/19 05:40 Assessment/Plan Problem List - Problems (1) COPD exacerbation Code(s): J44.1 - CHRONIC OBSTRUCTIVE PULMONARY DISEASE W (ACUTE) EXACERBATION (2) Anemia Code(s): D64.9 - ANEMIA, UNSPECIFIED Qualifiers: Anemia type: unspecified type Qualified Code(s): D64.9 - Anemia, unspecified (3) Anemia, chronic disease Code(s): D63.8 - ANEMIA IN OTHER CHRONIC DISEASES CLASSIFIED ELSEWHERE (4) CKD (chronic kidney disease) requiring chronic dialysis Code(s): N18.6 - END STAGE RENAL DISEASE; Z99.2 - DEPENDENCE ON RENAL DIALYSIS (5) End stage renal disease Code(s): N18.6 - END STAGE RENAL DISEASE (6) HIV (human immunodeficiency virus infection) Code(s): B20 - HUMAN IMMUNODEFICIENCY VIRUS [HIV] DISEASE (7) HTN (hypertension) Code(s): I10 - ESSENTIAL (PRIMARY) HYPERTENSION (8) Hyperlipidemia Code(s): E78.5 - HYPERLIPIDEMIA, UNSPECIFIED Qualifiers: (10) COPD exacerbation Code(s): J44.1 - CHRONIC OBSTRUCTIVE PULMONARY DISEASE W (ACUTE) EXACERBATION (11) Shortness of breath Code(s): R06.02 - SHORTNESS OF BREATH Prednisone BD TX Standing and PRN Supplemental O2 as needed No smoking was counseled VTE prophylaxis HD per Renal DR MARK
--- NOTE | 2019-12-09 11:20 | PN ---
Progress Note (short form) - Note Progress Note: s: no cp sob palps dizzy Current Medications Generic Name Dose Route Start Last Admin Trade Name Freq PRN Reason Stop Dose Admin Abacavir Sulfate 300 mg 11/25/19 22:00 12/08/19 21:53 Ziagen - PO Not Given BID JIMENEZ Acetaminophen 650 mg 11/25/19 19:40 12/01/19 17:47 Tylenol - PO 650 mg Q6H PRN Administration PAIN LEVEL 6-10 Albuterol Sulfate 1 amp 11/26/19 14:47 11/28/19 00:30 Ventolin 0.083% Nebulizer Soln - NEB 1 amp Q4H PRN Administration SHORT OF BREATH/WHEEZING Albuterol/Ipratropium 1 amp 11/26/19 16:00 12/09/19 09:50 Duoneb - NEB 1 amp RQID JIMENEZ Administration Benzocaine/Menthol 1 each 11/26/19 02:16 11/26/19 02:40 Cepacol Lozenge - MM 1 each PRN PRN Administration SORE THROAT Citalopram Hydrobromide 10 mg 11/26/19 10:00 12/08/19 10:00 Celexa - PO Not Given DAILY JIMENEZ Clonidine HCl 0.1 mg 12/08/19 10:00 12/08/19 12:00 Catapres Tts Patch - TD Not Given We@1000 JIMENEZ Famotidine 20 mg 11/25/19 22:00 12/08/19 21:53 Pepcid - PO Not Given HS JIMENEZ Fluconazole 100 mg 11/26/19 10:00 12/08/19 10:00 Diflucan - PO Not Given DAILY JIMENEZ Sodium Chloride 250 mls @ 3,000 mls/hr 11/26/19 14:00 Normal Saline - IV PRN PRN Hypotension during Dialysis Amino Acids 1,000 mls @ 84 mls/hr 11/30/19 22:15 12/08/19 22:50 Clinimix - IV 84 mls/hr Q12H JIMENEZ Administration Fat Emulsion Intravenous 250 mls @ 20.833 mls/hr 12/01/19 22:00 12/08/19 22: 50 Intralipid - IV 20.833 mls/hr DAILY@2200 JIMENEZ Administration Labetalol HCl 300 mg 11/25/19 22:00 12/08/19 21:53 Normodyne - PO Not Given BID [facility] Labetalol HCl 10 mg 12/06/19 16:35 Normodyne Injection - IVPUSH ONCE PRN HYPERTENSION Lamivudine 50 mg 11/26/19 10:00 12/08/19 10:00 Epivir Oral Solution - PO Not Given DAILY [facility] Lidocaine/Aluminum/Magnesium/Simeth 5 ml 11/25/19 18:00 12/09/19 06:02 Magic Mouthwash *Sjr Formula* - MM Not Given Q6HPO [facility] Lidocaine/Prilocaine 1 applic 11/29/19 12:25 Emla - TP PRN PRN PAIN LEVEL 1 - 3 Losartan Potassium 100 mg 11/26/19 10:00 12/08/19 10:00 Cozaar - PO Not Given DAILY [facility] Melatonin 5 mg 12/02/19 22:00 12/06/19 21:58 Melatonin PO 5 mg HS PRN Administration INSOMNIA Methylprednisolone Sodium Succinate 40 mg 12/06/19 10:00 12/09/19 10:12 Solu-Medrol - IVPUSH 40 mg DAILY [facility] Administration Multivitamins/Minerals 10 ml 12/02/19 10:00 12/08/19 10:00 Infuvite Adult - IV Not Given DAILY [facility] Nicotine 21 mg 11/27/19 15:45 12/09/19 10:12 Nicoderm Patch - TD 21 mg DAILY [facility] Administration Nifedipine 90 mg 11/26/19 10:00 12/08/19 10:00 Procardia Xl - PO Not Given DAILY [facility] Nystatin 500,000 units 11/25/19 18:00 12/09/19 06:02 Nystatin Oral Suspension - PO Not Given Q6HPO [facility] Pantoprazole Sodium 40 mg 12/03/19 10:00 12/09/19 10:12 Protonix Iv IVPUSH 40 mg DAILY [facility] Administration Prednisone 40 mg 12/05/19 12:45 12/05/19 13:33 Deltasone - PO Not Given DAILY [facility] Sevelamer Carbonate 1.6 gm 12/02/19 14:08 12/08/19 19:07 Renvela Powder Packet - GT Not Given TIDCM [facility] Simethicone 80 mg 11/28/19 22:15 12/08/19 21:53 Mylicon - PO Not Given QID [facility] Vital Signs Period Temp Pulse Resp BP Sys/Montes Pulse Ox Last 24 Hr 97.2 F-98.4 F 61-89 18-22 103-152/51-83 96-98 nad no jvd rrr s1s2 no mrg cta bl, no accesory muscle use abd nd pos bs no jaundice diaphoresis pos dp pt no carotid bruits no le e/c/c aaox3 CBC, BMP 12/09/19 06:10 12/09/19 06:10 echo 01/2018: nl lv/rv, mild mr, mod ar mibi 05/2019: mild inf ischemia, lvef 51% ecg: sr , nl intervals, lvh, no ischemic changes cxr: clear lungs tele: sr a/p: 69 m hx hiv, dm, htn, hld, esrd on hd, copd, here with sob. htn: -continue current meds esrd: -hd per renal sob, copd: -no signs chf or acs -cont steroids per pulm presumed cad: -recent nuclear stress test with mild ischemia, low risk finding, continue med management -cont bb, arb -resume asa when possible cardiac arrest: -per charts pt had several episodes of cardiac arrest, most recent was last month at outside hospital. details not available, pt reports his he was told his heart was fine and he has been following with dr edwards for cardio. 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
[2019-12-09 13:43] VITALS: BP 125/67; PULSE 89; TEMP 99.2
[2019-12-09] MEDS: SIMETHICONE 80 MG TAB.CHEW (FP) PO SCH ×2 (14:00→16:42)
[2019-12-09] MEDS ORDERED: BISACODYL 10 MG SUPP.RECT PR ONE (14:23)
[2019-12-09] MEDS ORDERED: MINERAL OIL ENEMA 133 ML ENEMA PR ONE (14:25)
[2019-12-09] MEDS ORDERED: POTASSIUM CHLORIDE TABS 20 MEQ TABLET.ER (FP) PO SCH (15:00)
[2019-12-09] MEDS ORDERED: POLYETHYLENE GLYCOL 3350 119 GM BTL PO SCH (15:15)
--- NOTE | 2019-12-09 15:59 | ECHO ---
Name: LEX FORTE Exam:Adult Echocardiogram Study Date: 12/09/2019 02:49 PM Age: 69 yrs Reason For Study: CAD Height: 73 in Weight: 161 lb BSA: 2.0 m2 MMode/2D Measurements & Calculations RVDd: 3.1 cm Ao root diam: 3.6 cm IVSd: 1.6 cm LA dimension: 2.9 cm LVIDd: 3.4 cm ACS: 2.0 cm LVIDs: 2.2 cm LVPWd: 1.4 cm EDV(Teich): 46.5 ml LVOT diam: 2.0 cm ESV(Teich): 15.9 ml LAV (MOD-bp): 64.0 ml TAPSE: 2.5 cm RV S Kamron: 21.2 cm/sec Doppler Measurements & Calculations Ao V2 max: 169.7 cm/sec AI max kamron: 298.6 cm/sec Ao max P.5 mmHg AI max P.7 mmHg Ao V2 mean: 114.7 cm/sec Ao mean P.3 mmHg AI dec slope: 150.6 cm/sec2 Ao V2 VTI: 23.8 cm WESLEY(I,D): 3.2 cm2 AI P1/2t: 580.9 msec WESLEY(V,D): 3.1 cm2 LV V1 max P.1 mmHg SV(LVOT): 75.8 ml LV V1 mean P.5 mmHg LV V1 max: 174.1 cm/sec LV V1 mean: 106.6 cm/sec LV V1 VTI: 25.1 cm TR max kamron: 230.1 cm/sec PA V2 max: 89.3 cm/sec TR max P.4 mmHg PA max P.2 mmHg PA acc slope: 620.2 cm/sec2 PA acc time: 0.12 sec Med Peak E' Kamron: 5.1 cm/sec PA pr(Accel): 26.7 mmHg Lat Peak E' Kamron: 10.2 cm/sec Tech Comments TDS, patient thin and lungy. Procedure A complete two-dimensional transthoracic echocardiogram was performed (2D, M-mode, Doppler and color flow Doppler). Left Ventricle The left ventricular size, thickness and function are normal. The left ventricular ejection fraction is normal. Ejection Fraction = 60-65%. The left ventricular wall motion is normal. Right Ventricle The right ventricle is normal in size and function. Atria Normal left and right atrial size and function. Mitral Valve There is no mitral regurgitation noted. Tricuspid Valve There is trace tricuspid regurgitation. Right ventricular systolic pressure is normal. Aortic Valve No hemodynamically significant valvular aortic stenosis. Mild aortic regurgitation. Pulmonic Valve There is no pulmonic valvular regurgitation. Great Vessels The aortic root is normal size. Pericardium/Pleura There is no pericardial effusion. Interpretation Summary The left ventricular size, thickness and function are normal The right ventricle is normal in size and function. There is trace tricuspid regurgitation. Mild aortic regurgitation. MD Bernabe Velasquez 12/09/2019 03:59 PM
--- NOTE | 2019-12-09 16:48 | PN ---
Progress Note, Physician History of Present Illness: Pt seen and examined at bedside. He is awake and alert. He denies shortness of breath. - Objective Vital Signs: Vital Signs Temperature 99.2 F 12/09/19 13:42 Pulse Rate 89 12/09/19 13:42 Respiratory Rate 18 12/09/19 13:42 Blood Pressure 125/67 12/09/19 13:42 O2 Sat by Pulse Oximetry (%) 98 12/08/19 21:00 Constitutional: Yes: Calm Eyes: Yes: Conjunctiva Clear HENT: Yes: Atraumatic Neck: Yes: Supple Cardiovascular: Yes: S1, S2 Respiratory: Yes: CTA Bilaterally Gastrointestinal: Yes: Soft Genitourinary: Yes: WNL Musculoskeletal: Yes: WNL Edema: No Neurological: Yes: Oriented Labs: CBC, BMP 12/09/19 06:10 12/09/19 06:10 INR, PTT INR 1.00 (0.83-1.09) 12/02/19 05:40 Problem List - Problems (1) End stage renal disease Code(s): N18.6 - END STAGE RENAL DISEASE (2) HIV (human immunodeficiency virus infection) Code(s): B20 - HUMAN IMMUNODEFICIENCY VIRUS [HIV] DISEASE Assessment/Plan 1. Shortness of breath 2. ESRD on HD 3. anemia 4. Hypertension 5. Hx of Cardiac arrest 6. HIV 7. hypokalemia Plan - pt had HD yesterday - potassium replaced - he has HD set up as outpt - volume status is stable
[2019-12-10] MEDS ORDERED: methylPREDNISolone NA SUCC 40 MG/1 ML VIAL IVPUSH SCH (10:00)
[2019-12-10] MEDS ORDERED: SODIUM CHLORIDE 250 ML IV PRN (23:30)
== END 2019-12-09 16:39 | disposition left against medical advice (07) | DRG 157 ==
LOC: SUPCPDRO 11:09 → JER 11:09 → JERBED 12:33 → J4W 18:51
PROVIDERS: ATTEND Internal Medicine
PROC: 3E0G76Z Introduction of Nutritional Substance into Upper GI, Via Natural or Artificial Opening (ICD-10-PCS; 2019-11-30)
PROC: 0CJS8ZZ Inspection of Larynx, Via Natural or Artificial Opening Endoscopic (ICD-10-PCS; 2019-11-30)
PROC: 5A1D70Z Performance of Urinary Filtration, Intermittent, Less than 6 Hours Per Day (ICD-10-PCS; 2019-12-01)
PROC: 0DH63UZ Insertion of Feeding Device into Stomach, Percutaneous Approach (ICD-10-PCS; principal; 2019-12-08)
DX: K12.33 Oral mucositis (ulcerative) due to radiation (principal); N18.6 End stage renal disease; I50.33 Acute on chronic diastolic (congestive) heart failure; B37.0 Candidal stomatitis; R64 Cachexia; J44.1 Chronic obstructive pulmonary disease with (acute) exacerbation; E44.0 Moderate protein-calorie malnutrition; E87.1 Hypo-osmolality and hyponatremia; I13.2 Hypertensive heart and chronic kidney disease with heart failure and with stage 5 chronic kidney disease, or end stage renal disease; J44.9 Chronic obstructive pulmonary disease, unspecified; Z86.74 Personal history of sudden cardiac arrest; Z85.21 Personal history of malignant neoplasm of larynx; Z99.2 Dependence on renal dialysis; I25.10 Atherosclerotic heart disease of native coronary artery without angina pectoris; Z21 Asymptomatic human immunodeficiency virus [HIV] infection status; D75.89 Other specified diseases of blood and blood-forming organs; E87.6 Hypokalemia; E86.0 Dehydration; F32.9 Major depressive disorder, single episode, unspecified; F41.9 Anxiety disorder, unspecified; R13.10 Dysphagia, unspecified; E78.5 Hyperlipidemia, unspecified; K21.9 Gastro-esophageal reflux disease without esophagitis; N40.0 Benign prostatic hyperplasia without lower urinary tract symptoms; J32.9 Chronic sinusitis, unspecified; J02.9 Acute pharyngitis, unspecified; F17.210 Nicotine dependence, cigarettes, uncomplicated; D63.1 Anemia in chronic kidney disease; N25.0 Renal osteodystrophy; E04.1 Nontoxic single thyroid nodule
CPT/HCPCS: 36415; 49440; 70450-TC; 70491-TC; 71045-TC-FY; 71260-TC; 74018-TC-FY; 74230-TC-FY; 80048; 80053; 82550; 82565; 82803; 83605; 83735; 84100; 84484; 84520; 85025; 85027; 85610; 86803; 87040; 87340; 87804; 87807; 87899; 92611-GN; 93005; 93010; 93306-TC; 94640; 97116-GP; 97161-GP; 99285-25; J0131; J1644; Q5106

== ENCOUNTER 2019-12-10 16:50 | Inpatient (IN) | payer OTHER ==
--- NOTE | 2019-12-10 16:54 | PDOC ---
Rapid Medical Evaluation Time Seen by Provider: 12/10/19 16:54 Medical Evaluation: Allergies Allergy/AdvReac Type Severity Reaction Status Date / Time No Known Drug Allergies Allergy Verified 11/02/19 12:27 12/10/19 16:54 CC: Pain to PEG site. Left AMA 12/09. Feeling weak presently. PE: PEG site w/o e/o infection. Rhonchi in all allred. Orders: labs Patient will proceed to ED for evaluation. 12/10/19 16:56 12/10/19 17:00 Discharge Disposition - Diagnosis Weakness - Referrals Referrals: Sheridan Ruggiero NP [Primary Care Provider] - - Patient Instructions - Post Discharge Activity
[2019-12-10 17:56] LABS: BASO % 0.2 % (0-2.0); EOS % 0.1 % (0-4.5); HEMATOCRIT 32.4 % (35.4-49); HEMOGLOBIN 10.8 GM/dL (11.7-16.9); LYMPH % 7.5 % (8-40); MCH 33.1 pg (25.7-33.7); MCHC 33.3 g/dl (32.0-35.9); MEAN CELL VOLUME 99.4 fl (80-96); MEAN PLT VOLUME 9.3 fl (7.5-11.1); MONO % 7.5 % (3.8-10.2); NEUT % 84.7 % (42.8-82.8); PLATELET COUNT 142 K/MM3 (134-434); RBC 3.26 M/mm3 (4.00-5.60); WHITE BLOOD COUNT 6.6 K/mm3 (4.0-10.0)
--- NOTE | 2019-12-10 18:33 | PDOC ---
History of Present Illness - History of Present Illness Initial Comments: 12/10/19 18:26 69 y/o M, pmh of HIV, throat cancer s/p radiation at [facility] cath[facility], COPD not on home O2, ESRD (on dialysis M/W/F), cardiac arreswt x4 (last arrest was last month), presented to the ED after eloping yesterday because he wants to continue care. According to the pt, He left yesterday as he felt unsatisfied. He is c/o feeling hunger. Pt admits that he had peg tube placed on 12/08/19 however left yesterday before feeding could be initiated s/p clinimix. He also is due for HD today. He endorses SOB, but no chest pain, Abdominal pain, F/C/N/ V. He also c/o discomfort around the peg tube. 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, was previously a heavy drinker Drugs: Denies PE: GEN: NAD HEENT: no conjunctival pallor noted, dry membranes NECK: no JVD CHEST: reduced breath at the bases, rales present HEART: RRR no Murmur, rubs or gallops ABDOMEN:Peg tube in place with mild surrounding tenderness Extremities: 2+ pulses , no edema Neuro: AAOx3, Motor strength 5/5, sensation intact throughout Psych: normal mood skin: warm , dry MSK:normal ROM 12/10/19 18:46 CBC,CMP WBC 6.6 K/mm3 (4.0-10.0) 12/10/19 17:30 RBC 3.26 M/mm3 (4.00-5.60) L 12/10/19 17:30 Hgb 10.8 GM/dL (11.7-16.9) L 12/10/19 17:30 Hct 32.4 % (35.4-49) L 12/10/19 17:30 MCV 99.4 fl (80-96) H 12/10/19 17:30 MCH 33.1 pg (25.7-33.7) 12/10/19 17:30 MCHC 33.3 g/dl (32.0-35.9) 12/10/19 17:30 RDW 16.0 % (11.9-15.9) H 12/10/19 17:30 Plt Count 142 K/MM3 (134-434) 12/10/19 17:30 MPV 9.3 fl (7.5-11.1) 12/10/19 17:30 Absolute Neuts (auto) 5.6 K/mm3 (1.5-8.0) 12/10/19 17:30 Neutrophils % 84.7 % (42.8-82.8) H 12/10/19 17:30 Lymphocytes % 7.5 % (8-40) L D 12/10/19 17:30 Monocytes % 7.5 % (3.8-10.2) D 12/10/19 17:30 Eosinophils % 0.1 % (0-4.5) D 12/10/19 17:30 Basophils % 0.2 % (0-2.0) 12/10/19 17:30 Nucleated RBC % 0 % (0-0) 12/10/19 17:30 Sodium 133 mmol/L (136-145) L 12/10/19 17:30 Potassium 5.0 mmol/L (3.5-5.1) 12/10/19 17:30 Chloride 95 mmol/L (98-107) L 12/10/19 17:30 Carbon Dioxide 25 mmol/L (21-32) 12/10/19 17:30 Anion Gap 13 MMOL/L (8-16) 12/10/19 17:30 BUN 92.9 mg/dL (7-18) H 12/10/19 17:30 Creatinine 10.6 mg/dL (0.55-1.3) H* 12/10/19 17:30 Est GFR (CKD-EPI)AfAm 5.18 12/10/19 17:30 Est GFR (CKD-EPI)NonAf 4.47 12/10/19 17:30 Random Glucose 82 mg/dL (74-106) 12/10/19 17:30 Calcium 8.2 mg/dL (8.5-10.1) L 12/10/19 17:30 Total Bilirubin 0.7 mg/dL (0.2-1) 12/10/19 17:30 AST 35 U/L (15-37) 12/10/19 17:30 ALT 22 U/L (13-61) 02/21/20 17:30 Alkaline Phosphatase 111 U/L (45-117) 12/10/19 17:30 Creatine Kinase 209 U/L (26-308) 12/10/19 17:30 Creatine Kinase Index 0.7 % (0.0-5.0) 12/10/19 17:30 CK-MB (CK-2) 1.5 ng/mL (0.5-3.6) 12/10/19 17:30 Troponin I 0.03 ng/ml (0.00-0.05) 12/10/19 17:30 Total Protein 5.9 g/dl (6.4-8.2) L 12/10/19 17:30 Albumin 2.5 g/dl (3.4-5.0) L 12/10/19 17:[address] Craven and he will put labs and have pt go for HD first thing in the morning Hb stable 12/10/19 19:33 CXR done and pending official read 12/10/19 20:13 microblog sent and i gave sign out to admitting team.admitted to [facility] <Lindsay Greenwood - Last Filed: 12/13/19 21:30> <Kulwinder Bond - Last Filed: 12/17/19 01:05> - General Chief Complaint: Weakness Stated Complaint: G TUBE PROBLEM Time Seen by Provider: 12/10/19 16:54 Past History - Past Medical History Anemia: Yes Asthma: Yes Cancer: Yes (THROAT,LARYNGEAL CANCER) Cardiac Disorders: Yes (Cardiac arrest) CVA: No COPD: Yes CHF: Yes (ACUTE ON CHRONIC DIASTOLIC) DVT: No Dementia: No Diabetes: No Dialysis: Yes (ESRD ON HD) GI Disorders: Yes (H/O MELENA) Disorders: Yes (h/o prostatitis) HTN: Yes Hypercholesterolemia: Yes Liver Disease: No Psychiatric Problems: Yes (DEPRESSION.) Seizures: No Thyroid Disease: Yes (hypo - s/p radiation, dx 2017) - Surgical History Abdominal Surgery: Yes (bilat inguinal hernia repair) Appendectomy: No Cardiac Surgery: No Cholecystectomy: No Lung Surgery: No Neurologic Surgery: No Orthopedic Surgery: No - Reproductive History Testicular Surgery: No - Immunization History Immunization Up to Date: Yes - Psycho Social/Smoking Cessation Hx Smoking History: Never smoked Have you smoked in the past 12 months: No Number of Cigarettes Smoked Daily: 10 Cigars Per Day: 0 Information on smoking cessation initiated: No 'Breaking Loose' booklet given: 11/25/19 Hx Alcohol Use: No Drug/Substance Use Hx: No Substance Use Type: Alcohol Hx Substance Use Treatment: Yes <Lindsay Greenwood - Last Filed: 12/13/19 21:30> <Kulwinder Bond - Last Filed: 12/17/19 01:05> - Past Medical History Allergies/Adverse Reactions: Allergies Allergy/AdvReac Type Severity Reaction Status Date / Time No Known Drug Allergies Allergy Verified 11/02/19 12:27 Home Medications: Ambulatory Orders Abacavir Sulfate [Abacavir] 600 mg PO DAILY 11/26/19 Albuterol Sulfate Inhaler - [Ventolin HFA Inhaler -] 2 puff IH Q6H 11/26/19 Aspirin [ASA -] 81 mg PO DAILY 11/26/19 Citalopram Hydrobromide [Celexa -] 10 mg PO DAILY 11/26/19 Dolutegravir Sodium [Tivicay] 50 mg PO DAILY 11/26/19 Lamivudine [Epivir Hbv] 50 mg PO DAILY 11/26/19 Latanoprost 0.005% Eye Drops [Xalatan 0.005% Eye Drops -] 1 drop OU HS 11/26/19 Lidocaine/Prilocaine Cream [Lidocaine-Prilocaine Cream -] 1 applic TP UTDICT 05/08 Ranitidine HCl 300 mg PO DAILY 11/26/19 Sucroferric Oxyhydroxide [Velphoro] 500 mg PO TID 11/26/19 Umeclidinium Brm/Vilanterol Tr [Anoro Ellipta 62.5-25 Mcg INH] 1 each IH DAILY 11/26/19 Fluconazole [Diflucan -] 100 mg PO DAILY #30 tablet 12/09/19 Losartan Potassium [Cozaar -] 100 mg PO DAILY #30 tablet 12/09/19 Melatonin 5 mg PO HS PRN 15 Days tab 12/09/19 Polyethylene Glycol 3350 [Miralax 119 gm Btl -] 17 gm PO DAILY #1 bottle Prednisone See Taper PO ASDIR 9 Days #18 tablet 12/15/19 Review of Systems - Review of Systems Able to Perform ROS?: Yes Is the patient limited Irish proficient: No Constitutional: No: Chills, Fever HEENTM: No: Recent change in vision Respiratory: Yes: Cough, Shortness of Breath, Productive cough Cardiac (ROS): No: Chest Pain, Edema, Lightheadedness, Chest Tightness ABD/GI: No: Nausea, Vomiting : No: Pain Neurological: No: Headache Endocrine: No: Change in Weight <Lindsay Greenwood - Last Filed: 12/13/19 21:30> *Physical Exam - Vital Signs Last Vital Signs Temp Pulse Resp BP Pulse Ox 97.2 F L 76 22 H 146/82 93 L 12/10/19 17:05 12/10/19 17:45 12/10/19 17:45 12/10/19 17:45 12/10/19 17:45 - Physical Exam General Appearance: Yes: Nourished, Appropriately Dressed, Mild Distress HEENT: positive: EOMI, VASYL, Pale Conjunctivae Neck: positive: Trachea midline, Supple Respiratory/Chest: positive: Decreased Breath Sounds, Crackles, Rales Cardiovascular: positive: Regular Rhythm, Regular Rate, S1, S2 Gastrointestinal/Abdominal: positive: Normal Bowel Sounds Musculoskeletal: negative: CVA Tenderness Extremity: positive: Other Integumentary: positive: Dry, Warm Neurologic: positive: web administrator II-XII NML intact, Alert, Normal Mood/Affect <Lindsay Greenwood - Last Filed: 12/13/19 21:30> - Vital Signs Last Vital Signs Temp Pulse Resp BP Pulse Ox 97.6 F 87 18 111/62 99 12/15/19 21:00 12/15/19 21:00 12/15/19 21:00 12/15/19 21:00 12/15/19 21:00 <Kulwinder Bond - Last Filed: 12/17/19 01:05> ED Treatment Course - LABORATORY CBC & Chemistry Diagram: 12/13/19 08:00 12/13/19 08:00 - ADDITIONAL ORDERS Additional order review: Laboratory Results 12/10/19 17:30 WBC 6.6 RBC 3.26 L Hgb 10.8 L Hct 32.4 L MCV 99.4 H MCH 33.1 MCHC 33.3 RDW 16.0 H Plt Count 142 MPV 9.3 Absolute Neuts (auto) 5.6 Neutrophils % 84.7 H Lymphocytes % 7.5 L D Monocytes % 7.5 D Eosinophils % 0.1 D Basophils % 0.2 Nucleated RBC % 0 12/10/19 17:30 RBC 3.26 L MCV 99.4 H MCHC 33.3 RDW 16.0 H MPV 9.3 Neutrophils % 84.7 H Lymphocytes % 7.5 L D Monocytes % 7.5 D Eosinophils % 0.1 D Basophils % 0.2 <Lindsay Greenwood - Last Filed: 12/13/19 21:30> - LABORATORY CBC & Chemistry Diagram: 12/15/19 07:03 12/15/19 07:03 - ADDITIONAL ORDERS Additional order review: 12/10/19 17:30 RBC 3.26 L MCV 99.4 H MCHC 33.3 RDW 16.0 H MPV 9.3 Neutrophils % 84.7 H Lymphocytes % 7.5 L D Monocytes % 7.5 D Eosinophils % 0.1 D Basophils % 0.2 - Medications Given in the ED: ED Medications Discontinued Medications Generic Name Dose Route Start Last Admin Trade Name Pierreq PRN Reason Stop Dose Admin Abacavir Sulfate 600 mg 12/12/19 10:00 12/15/19 11:39 Ziagen - PO 600 mg DAILY JIMENEZ Administration Albuterol Sulfate 2 puff 12/11/19 15:30 12/13/19 18:01 Ventolin Hfa Inhaler - IH Not Given Q6H JIMENEZ Albuterol/Ipratropium 2 amp 12/12/19 01:17 12/12/19 01:27 Duoneb - NEB 12/12/19 01:18 2 amp ONCE ONE Administration Aspirin 81 mg 12/12/19 10:00 12/15/19 11:37 Asa - PO 81 mg DAILY JIMENEZ Administration Citalopram Hydrobromide 10 mg 12/12/19 10:00 12/15/19 11:38 Celexa - PO 10 mg DAILY JIMENEZ Administration Famotidine 10 mg 12/11/19 22:00 12/13/19 10:11 Pepcid PO 10 mg BID JIMENEZ Administration Famotidine 10 mg 12/13/19 22:00 12/15/19 22:14 Acid Customer Engineering Specialist PO 10 mg BID JIMENEZ Administration Fluconazole 100 mg 12/14/19 10:00 12/15/19 11:39 Diflucan - PO 100 mg DAILY JIMENEZ Administration Heparin Sodium (Porcine) 5,000 unit 12/11/19 02:00 12/13/19 18:17 Heparin - SQ 5,000 unit Q8H-IV JIMENEZ Administration Heparin Sodium (Porcine) 5,000 unit 12/13/19 22:00 12/15/19 22:15 Heparin - SQ 5,000 unit TID JIMENEZ Administration Sodium Chloride 250 mls @ 250 mls/hr 12/12/19 13:45 12/12/19 13:50 Normal Saline - IV 12/12/19 14:44 250 mls/hr ONCE ONE Administration Potassium Chloride 10 meq in 100 mls @ 100 mls/hr 12/13/19 15:45 12/13/19 18: 00 Potassium Chloride 10 Meq Premix Ivpb - IVPB 12/13/19 17:44 Not Given Q60M JIMENEZ Sodium Chloride 250 mls @ 250 mls/hr 12/14/19 10:10 12/14/19 10:42 Normal Saline - IV 12/14/19 11:09 250 mls/hr ASDIR STA Administration Labetalol HCl 400 mg 12/11/19 22:00 12/13/19 12:23 Normodyne - PO Not Given BID JIMENEZ Labetalol HCl 200 mg 12/13/19 15:17 12/13/19 21:33 Normodyne - PO 200 mg BID JIMENEZ Administration Labetalol HCl 200 mg 12/14/19 10:00 12/15/19 22:13 Normodyne - PO Not Given BID JIMENEZ Lamivudine 50 mg 12/12/19 10:00 12/15/19 11:38 Epivir Oral Solution - PO 50 mg DAILY JIMENEZ Administration Latanoprost 1 drop 12/11/19 22:00 12/15/19 22:15 Xalatan 0.005% Eye Drops - OU Not Given HS JIMENEZ Losartan Potassium 100 mg 12/12/19 10:00 12/13/19 12:23 Cozaar - PO Not Given DAILY JIMENEZ Losartan Potassium 100 mg 12/14/19 10:00 12/14/19 09:02 Cozaar - PO Not Given DAILY JIMENEZ Losartan Potassium 50 mg 12/14/19 15:21 12/15/19 11:38 Cozaar - PO 50 mg DAILY JIMENEZ Administration Melatonin 5 mg 12/11/19 15:18 12/11/19 21:51 Melatonin PO 5 mg HS PRN Administration INSOMNIA Methylprednisolone Sodium Succinate 40 mg 12/14/19 10:00 12/14/19 10:10 Solu-Medrol - IVPUSH 12/15/19 09:59 40 mg DAILY JIMENEZ Administration Methylprednisolone Sodium Succinate 35 mg 12/15/19 10:00 12/15/19 11:54 Solu-Medrol - IVPUSH 12/16/19 09:59 35 mg DAILY JIMENEZ Administration Methylprednisolone Sodium Succinate 40 mg 12/13/19 16:43 12/13/19 18:17 Solu-Medrol - IVPUSH 12/13/19 16:44 40 mg ONCE ONE Administration Nifedipine 90 mg 12/12/19 10:00 12/13/19 12:24 Procardia Xl - PO Not Given DAILY JIMENEZ Nifedipine 90 mg 12/14/19 10:00 12/14/19 09:01 Procardia Xl - PO Not Given DAILY JIMENEZ Pantoprazole Sodium 20 mg 12/11/19 15:30 12/11/19 16:14 Protonix - PO Not Given DAILY JIMENEZ Polyethylene Glycol 17 gm 12/12/19 10:00 12/15/19 11:41 Miralax (For Daily Use) - PO Not Given DAILY JIMENEZ Potassium Chloride 20 meq 12/13/19 19:30 12/13/19 21:34 K-Dur - PO 12/13/19 19:31 20 meq ONCE ONE Administration Umeclidinium/Vilanterol 1 puff 12/12/19 10:00 12/15/19 11:40 Anoro Ellipta 62.5-25 Mcg Inh IH 1 puff DAILY JIMENEZ Administration <Kulwinder Bond - Last Filed: 12/17/19 01:05> Medical Decision Making - Medical Decision Making 12/17/19 01:05 I have seen and evaluated the patient. I agree with the resident's note as well as management and care <Kulwinder Bond - Last Filed: 12/17/19 01:05> Discharge - Discharge Information Problems reviewed: Yes - Admission Yes <Lindsay Greenwood - Last Filed: 12/13/19 21:30> <Kulwinder Bond - Last Filed: 12/17/19 01:05> - Discharge Information Clinical Impression/Diagnosis: Weakness Condition: Stable Disposition: HOME
[2019-12-10 18:39] LABS: ALBUMIN 2.5 g/dl (3.4-5.0); BILIRUBIN,TOTAL 0.7 mg/dL (0.2-1); BLOOD UREA NITROGEN 92.9 mg/dL (7-18); CALCIUM 8.2 mg/dL (8.5-10.1); TOT PROT 5.9 g/dl (6.4-8.2)
[2019-12-10 18:47] LABS: CREATININE 10.6 mg/dL (0.55-1.3)
--- NOTE | 2019-12-10 21:16 | HP ---
CHIEF COMPLAINT: weakness, feeling hungry PCP:Dr. Mcdonnell HISTORY OF PRESENT ILLNESS: Patient is a 69 year old male with a history of HTN, hyperlipidemia, COPD, cardiac arrest, ESRD (on HD MWF), HIV, throat cancer s/p radiation therapy, depression, anxiety who presented to the ED due to feeling hungry, after eloping from the hospital yesterday. Patient was admitted on 11/25/2019 for COPD exacerbation. At that time, he was also evaluated by speech and swallow for dysphagia from throat CA s/p radiation therapy, and it was determined that patient needs a peg tube and has high risk for aspiration. Patient eloped yesterday, with PEG tube placed, however tube feeds were not initiated yet. Patient reports feeling hungry and endorses shortness of breath, but denies any fever, chills, headache, dizziness, chest pain, abdominal pain, diarrhea. Recent Travel: denies PAST MEDICAL HISTORY: HTN hyperlipidemia COPD cardiac arrest ESRD (on HD MWF) HIV throat cancer s/p radiation therapy depression anxiety PAST SURGICAL HISTORY: B/l Inguinal Hernia repair surgery for undescended L testes Social History: Smokin/2 PPD x 40+ years Alcohol: 8 years sober, was previously a heavy drinker Drugs: Denies Allergies No Known Drug Allergies Allergy (Verified 11/02/19 12:27) HOME MEDICATIONS: Home Medications Medication Instructions Recorded Abacavir Sulfate [Abacavir] 600 mg PO DAILY 11/26/19 Albuterol Sulfate Inhaler - 2 puff IH Q6H 11/26/19 [Ventolin HFA Inhaler -] Aspirin [ASA -] 81 mg PO DAILY 11/26/19 Citalopram Hydrobromide [Celexa -] 10 mg PO DAILY 11/26/19 Dolutegravir Sodium [Tivicay] 50 mg PO DAILY 11/26/19 Labetalol HCl 400 mg PO BID 11/26/19 Lamivudine [Epivir Hbv] 50 mg PO DAILY 11/26/19 Latanoprost 0.005% Eye Drops 1 drop OU HS 11/26/19 [Xalatan 0.005% Eye Drops -] Lidocaine/Prilocaine Cream 1 applic TP UTDICT 11/26/19 [Lidocaine-Prilocaine Cream -] Ranitidine HCl 300 mg PO DAILY 11/26/19 Sevelamer Carbonate 1,600 mg PO TID 11/26/19 Sucroferric Oxyhydroxide [Velphoro] 500 mg PO TID 11/26/19 Umeclidinium Brm/Vilanterol Tr 1 each IH DAILY 11/26/19 [Anoro Ellipta 62.5-25 Mcg INH] Fluconazole [Diflucan -] 100 mg PO DAILY #30 tablet 12/09/19 Losartan Potassium [Cozaar -] 100 mg PO DAILY #30 tablet 12/09/19 Melatonin 5 mg PO HS PRN 15 Days tab 12/09/19 Nifedipine ER [Procardia XL -] 90 mg PO DAILY #30 tab.er.24 12/09/19 Pantoprazole Sodium [Protonix IV] 40 mg IVPUSH DAILY #30 vial 12/09/19 Polyethylene Glycol 3350 [Miralax 17 gm PO DAILY #1 bottle 12/09/19 119 gm Btl -] predniSONE [Deltasone -] See Taper PO DAILY #14 tablet 12/09/19 REVIEW OF SYSTEMS CONSTITUTIONAL: feeling hungry Absent: fever, chills, diaphoresis, generalized weakness, malaise, loss of appetite, weight change HEENT: Absent: rhinorrhea, nasal congestion, throat pain, throat swelling, difficulty swallowing, mouth swelling, ear pain, eye pain, visual changes CARDIOVASCULAR: Absent: chest pain, syncope, palpitations, irregular heart rate, lightheadedness , peripheral edema RESPIRATORY: shortness of breath Absent: cough, dyspnea with exertion, orthopnea, wheezing, stridor, hemoptysis GASTROINTESTINAL: Absent: abdominal pain, abdominal distension, nausea, vomiting, diarrhea, constipation, melena, hematochezia GENITOURINARY: Absent: dysuria, frequency, urgency, hesitancy, hematuria, flank pain, genital pain MUSCULOSKELETAL: Absent: myalgia, arthralgia, joint swelling, back pain, neck pain SKIN: Absent: rash, itching, pallor HEMATOLOGIC/IMMUNOLOGIC: Absent: easy bleeding, easy bruising, lymphadenopathy, frequent infections ENDOCRINE: Absent: unexplained weight gain, unexplained weight loss, heat intolerance, cold intolerance NEUROLOGIC: Absent: headache, focal weakness or paresthesias, dizziness, unsteady gait, seizure, mental status changes, bladder or bowel incontinence PSYCHIATRIC: Absent: anxiety, depression, suicidal or homicidal ideation, hallucinations. PHYSICAL EXAMINATION Vital Signs - 24 hr 12/10/19 12/10/1912/10/20 17:05 17:30 17:45 Temperature 97.2 F L Pulse Rate 82 Pulse Rate [ 76 Right Radial] Respiratory 24 H 22 H Rate Blood Pressure 110/52 L Blood Pressure 146/82 [Right Arm] O2 Sat by Pulse 90 L 89 L 93 L Oximetry (%) GENERAL: The patient is awake, alert, and fully oriented, in no acute distress. HEAD: Normal with no signs of trauma. EYES: PERRLA, EOMI, sclera anicteric, conjunctiva clear. ENT:Dry mucous membranes. NECK: Trachea midline, full range of motion, supple. LUNGS: +coarse crackles on bilateral bases HEART: Regular rate and rhythm, S1, S2 without murmur, rub or gallop. ABDOMEN: Soft, nontender, nondistended, normoactive bowel sounds. PEG tube in place. EXTREMITIES: 2+ pulses, warm, well-perfused, no edema. NEUROLOGICAL: Cranial nerves II through XII grossly intact. Normal speech. PSYCH: Normal mood, normal affect. SKIN: Warm, dry, normal turgor. Laboratory Results - last 24 hr 12/10/19 12/10/19 17:30 17:30 WBC 6.6 RBC 3.26 L Hgb 10.8 L Hct 32.4 L MCV 99.4 H MCH 33.1 MCHC 33.3 RDW 16.0 H Plt Count 142 MPV 9.3 Absolute Neuts (auto) 5.6 Neutrophils % 84.7 H Lymphocytes % 7.5 L D Monocytes % 7.5 D Eosinophils % 0.1 D Basophils % 0.2 Nucleated RBC % 0 Sodium 133 L Potassium 5.0 Chloride 95 L Carbon Dioxide 25 Anion Gap 13 BUN 92.9 H Creatinine 10.6 H* Est GFR (CKD-EPI)AfAm 5.18 Est GFR (CKD-EPI)NonAf 4.47 Random Glucose 82 Calcium 8.2 L Total Bilirubin 0.7 AST 35 ALT 22 Alkaline Phosphatase 111 Creatine Kinase 209 Creatine Kinase Index 0.7 CK-MB (CK-2) 1.5 Troponin I 0.03 Total Protein 5.9 L Albumin 2.5 L ASSESSMENT/PLAN: Patient is a 69 year old male with a history of HTN, hyperlipidemia, COPD, cardiac arrest, ESRD (on HD MWF), HIV, throat cancer s/p radiation therapy, depression, anxiety who presented to the ED to continue care, after eloping from the hospital yesterday. #Dysphagia 11/21 to mucositis/pharyngitis, RT for throat cancer -PEG tube placed on 12/08/2019 -KUB (12/09/2019) - There is some small bowel air distention could represent SBO or ileus. There is no sign of gross pneumoperitoneum. Following injection of contrast into the PEG tube, there was no sign of a leak or obstruction to flow -plan to start PEG tube in the morning once cleared -NPO -nystatin oral solution for oral thrush #COPD -was on Solu-medrol 40mg daily since NPO -will continue Solu-medrol 40mg for now -continue bronchodilators #ESRD -on dialysis -Nephrology consulted. -Plan for HD tomorrow #HTN -Continue Procardia XL, Labetalol, Cozaar #Depression, anxiety -continue Celexa #HIV -continue HAART #FEN -Not on any standing fluids -routine bmp monitoring -NPO #Prophylaxis -Heparin 5000u sq tid #Disposition -full code -med surg Visit type - Emergency Visit Emergency Visit: Yes ED Registration Date: 12/10/19 Care time: The patient presented to the Emergency Department on the above date and was hospitalized for further evaluation of their emergent condition. - New Patient This patient is new to me today: Yes Date on this admission: 12/10/19 - Critical Care Critical Care patient: No ATTENDING PHYSICIAN STATEMENT I saw and evaluated the patient. I reviewed the resident's note and discussed the case with the resident. I agree with the resident's findings and plan as documented. SUBJECTIVE: OBJECTIVE: ASSESSMENT AND PLAN:
--- NOTE | 2019-12-10 22:44 | PN ---
Teaching Attending Note Name of Resident: Jo Hawkins ATTENDING PHYSICIAN STATEMENT I saw and evaluated the patient. I reviewed the resident's note and discussed the case with the resident. I agree with the resident's findings and plan as documented. SUBJECTIVE: 69-year-old male with multiple medical problems including end-stage renal disease on hemodialysisFriday, Friday, Friday, status post cardiac arrest x4 , long-term tobacco abuser, COPD, hypertension, dyslipidemia, HIV, laryngeal cancer status post radiation therapy at [place], depression and anxiety with recent PEG tube placement-patient was evaluated by speech and swallow for dysphagia, determined that he was high risk for aspiration and needed PEG placement, eloped from hospital on 12/09/2019 because patient was unsatisfied with medical care. He eloped before feeding tube was tested and returned because was feeling hungry. Patient's last hemodialysis was this past Friday, December 08, 2019. OBJECTIVE: Last Vital Signs Temp Pulse Resp BP Pulse Ox 97.2 F L 76 22 H 146/82 93 L 12/10/19 17:05 12/10/19 17:45 12/10/19 17:45 12/10/19 17:45 12/10/19 17:45 On physical exam acute distress, awake, alert, oriented, hoarse voice. Answering questions and following commands. No scleral pallor appreciated, no icteric sclera. Heart sounds are S1 plus, S2 plus holosystolic murmur. Bilateral breath sounds appreciated. Abdomen was soft with PEG in place. PEG site was clean dry and intact. Left upper extremity AV fistula with good thrill and bruit. No skin rashes appreciated. Abnormal Lab Results 12/10/19 12/10/19 17:30 17:30 RBC 3.26 L Hgb 10.8 L Hct 32.4 L MCV 99.4 H RDW 16.0 H Neutrophils % 84.7 H Lymphocytes % 7.5 L D Sodium 133 L Chloride 95 L BUN 92.9 H Creatinine 10.6 H* Calcium 8.2 L Total Protein 5.9 L Albumin 2.5 L Imaging studies reviewed. ASSESSMENT AND PLAN: #Laryngeal cancer status post PEG placement due to aspiration risk Must test PEG to ensure it is functioning correctly We will order contrast for PEG with subsequent abdominal x-ray to ensure proper function of PEG #HIVlast CD4 in 600s on 11/16/2019 HIV regimen noted to be abacavir, dolutegravir, lamivudine Send HIV viral load, CD4 count Infectious disease consultation for medications #Anemiamacrocytic, suspect mixed etiology Patient would benefit from EPO Ferrous sulfate supplementation #End-stage renal disease on hemodialysisappears to be euvolemic at this time. Noted to be significantly uremic.Receives hemodialysis through left AV fistula Nephrology consultation for hemodialysis reinstitution Avoid fluid overload Monitor urine output Avoid nephrotoxic medications Phosphate binders 3 times daily Sodium bicarb 3 times daily supplementation Calcitriol, ergocalciferol Statin Aspirin #Hypoalbuminemialikely secondary to renal failure with nephrotic syndrome versus poor nutrition #Depression Continue with citalopram #Hypertension Continue with Procardia XL, labetalol Would not give Cozaar at this time as patient has borderline hyperkalemia and ARB's are relatively contraindicated in end-stage renal disease patients #COPDsecondary to prolonged smoking Avoidance of tobacco Albuterol as needed Continue with home dose Ellipta Heparin subcutaneously for DVT prophylaxis
--- NOTE | 2019-12-10 23:28 | CON.NEP ---
Consult Consult Specialty:: nephrology Reason for Consultation:: esrd for dialysis - History of Present Illness History of Present Illness: throat ca esrd mwf eloped form the hospital returned via er - Past Medical History Cardio/Vascular: Yes: HTN, Hyperlipdemia Pulmonary: Yes: Bronchitis, COPD, Pneumonia. 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 History of Recent Travel: No Home Medications - Allergies Allergies/Adverse Reactions: Allergies Allergy/AdvReac Type Severity Reaction Status Date / Time No Known Drug Allergies Allergy Verified 11/02/19 12:27 - Home Medications Home Medications: Ambulatory Orders Abacavir Sulfate [Abacavir] 600 mg PO DAILY 11/26/19 Albuterol Sulfate Inhaler - [Ventolin HFA Inhaler -] 2 puff IH Q6H 11/26/19 Aspirin [ASA -] 81 mg PO DAILY 11/26/19 Citalopram Hydrobromide [Celexa -] 10 mg PO DAILY 11/26/19 Dolutegravir Sodium [Tivicay] 50 mg PO DAILY 11/26/19 Labetalol HCl 400 mg PO BID 11/26/19 Lamivudine [Epivir Hbv] 50 mg PO DAILY 11/26/19 Latanoprost 0.005% Eye Drops [Xalatan 0.005% Eye Drops -] 1 drop OU HS 11/26/19 Lidocaine/Prilocaine Cream [Lidocaine-Prilocaine Cream -] 1 applic TP UTDICT 05/08 Ranitidine HCl 300 mg PO DAILY 11/26/19 Sevelamer Carbonate 1,600 mg PO TID 11/26/19 Sucroferric Oxyhydroxide [Velphoro] 500 mg PO TID 11/26/19 Umeclidinium Brm/Vilanterol Tr [Anoro Ellipta 62.5-25 Mcg INH] 1 each IH DAILY 11/26/19 Fluconazole [Diflucan -] 100 mg PO DAILY #30 tablet 12/09/19 Losartan Potassium [Cozaar -] 100 mg PO DAILY #30 tablet 12/09/19 Melatonin 5 mg PO HS PRN 15 Days tab 12/09/19 Nifedipine ER [Procardia XL -] 90 mg PO DAILY #30 tab.er.24 12/09/19 Pantoprazole Sodium [Protonix IV] 40 mg IVPUSH DAILY #30 vial 12/09/19 Polyethylene Glycol 3350 [Miralax 119 gm Btl -] 17 gm PO DAILY #1 bottle predniSONE [Deltasone -] See Taper PO DAILY #14 tablet 12/09/19 Nephrology Consult - Height Height: 6 ft 1 in - Weight Weight: 175 lb - BMI Body Mass Index (BMI): 23.1 - Lab Results CBC,BMP: CBC, BMP 12/10/19 17:30 12/10/19 17:30 Anion Gap: Anion Gap Anion Gap 13 MMOL/L (8-16) 12/10/19 17:30 - Physical Examination Vital Signs: Vital Signs Temperature 97.2 F L 12/10/19 17:05 Pulse Rate 76 12/10/19 17:45 Respiratory Rate 22 H 12/10/19 17:45 Blood Pressure 146/82 12/10/19 17:45 O2 Sat by Pulse Oximetry (%) 93 L 12/10/19 17:45 Assessment/Plan esrd seems euvolemic loud airway secretions r/o pulmonary vascular congestion hd in am
--- NOTE | 2019-12-11 02:06 | PDOC ---
Documentation entered by Jose Roberson SCRIBE, acting as scribe for Kulwinder Bond DO. Kulwinder Bond DO: This documentation has been prepared by the Karol bernabe Angel, SCRIBE, under my direction and personally reviewed by me in its entirety. I confirm that the documentation accurately reflects all work, treatment, procedures, and medical decision making performed by me. Attending Attestation - Resident Resident Name: TimoOnesimoLindsay - HPI HPI: 12/10/19 20:09 Patient is a 69 year old male with a past medical history of ESRD on HD due for HD yesterday but eloped. Patient returns today to continue his care and for admission. He denies any physical complaints. - Physicial Exam PE: 12/10/19 20:09 GENERAL: Awake, alert, and fully oriented, in no acute distress HEAD: No signs of trauma EYES: PERRLA, EOMI, sclera anicteric, conjunctiva clear ENT: Auricles normal inspection, hearing grossly normal, nares patent, oropharynx clear without exudates. Moist mucosa NECK: Normal ROM, supple, no lymphadenopathy, JVD, or masses LUNGS: Breath sounds equal, clear to auscultation bilaterally. No wheezes, and no crackles HEART: Regular rate and rhythm, normal S1 and S2, no murmurs, rubs or gallops ABDOMEN: Soft, nontender, normoactive bowel sounds. No guarding, no rebound. No masses EXTREMITIES: Normal range of motion, no edema. No clubbing or cyanosis. No cords, erythema, or tenderness NEUROLOGICAL: Cranial nerves II through XII grossly intact. Normal speech, normal gait SKIN: Warm, Dry, normal turgor, no rashes or lesions noted. - Medical Decision Making 12/10/19 20:09 EKG Normal sinus 75, PACs, LVH, left forward axis, incomplete left bundle branch block, nonspecific T wave inversions V4-V6, not tam, no ischemia 1916. 69 year old male here for readmission and HD. Will check electrolytes and EKG and will admit.
[2019-12-11] MEDS: HEPARIN NA (PORCINE) 5,000 UNITS/ML 1ML VIAL SQ SCH ×3 (03:30→18:24)
--- NOTE | 2019-12-11 07:56 | PN ---
Progress Note, Physician Chief Complaint: Patient is known from previous hospitalization very carefully noncompliant wants to have something. History of Present Illness: 69-year-old male with multiple medical problems including end-stage renal disease on hemodialysisFriday, Friday, Friday, status post cardiac arrest x4 , long-term tobacco abuser, COPD, hypertension, dyslipidemia, HIV, laryngeal cancer status post radiation therapy at [place], depression and anxiety with recent PEG tube placement-patient was evaluated by speech and swallow for dysphagia, determined that he was high risk for aspiration and needed PEG placement, eloped from hospital on 12/09/2019 because patient was unsatisfied with medical care. - Current Medication List Current Medications: Active Medications Heparin Sodium (Porcine) (Heparin -) 5,000 unit SQ Q8H-IV JIMENEZ Last Admin: 12/11/19 03:30 Dose: 5,000 unit - Objective Vital Signs: Vital Signs Temperature 97.7 F 12/11/19 06:00 Pulse Rate 82 12/11/19 06:00 Respiratory Rate 12/11/19 06:00 Blood Pressure 140/67 12/11/19 06:00 O2 Sat by Pulse Oximetry (%) 92 L 12/10/19 23:05 General: Elderly man, disabled sick looking irritable HEENT; mucous membranes moist, no anemia, no jaundice, PERRLA, no nystagmus Neck: No JVD, supple, no bruit, thyroid palpably normal, normal carotid pulsations. Chest: Nontender, clear to auscultation bilaterally/bilateral wheezing/ bilateral basal rales. CVS: S1-S2 regular/ Abdomen: PEG tube backslash nondistended, soft, bowel sounds present. Extremities: No edema., No calf tenderness, pulses present CARE GIVER: AO X3 , no gross motor sensory deficit Labs: CBC, BMP 12/10/19 17:30 12/10/19 17:30 Problem List - Problems (1) HTN (hypertension) Assessment/Plan: Resume home medication via PEG tube Problems reviewed: Yes Code(s): I10 - ESSENTIAL (PRIMARY) HYPERTENSION (2) ESRD (end stage renal disease) Assessment/Plan: Patient missed hemodialysis presents with volume overload last night received urgent hemodialysis. Problems reviewed: Yes Code(s): N18.6 - END STAGE RENAL DISEASE (3) Dysphagia Assessment/Plan: Due to radiation mucositis for throat cancer, status post PEG, PEG position reconfirmed and with bleeding restarted after discussing with the dietitian. Problems reviewed: Yes Code(s): R13.10 - DYSPHAGIA, UNSPECIFIED (4) HIV (human immunodeficiency virus infection) Assessment/Plan: Resume home medication Problems reviewed: Yes Code(s): B20 - HUMAN IMMUNODEFICIENCY VIRUS [HIV] DISEASE (5) Weakness Code(s): R53.1 - WEAKNESS (6) Anemia Assessment/Plan: Chronic H&H stable. Problems reviewed: Yes Code(s): D64.9 - ANEMIA, UNSPECIFIED Qualifiers: Anemia type: unspecified type Qualified Code(s): D64.9 - Anemia, unspecified
[2019-12-11 08:47] LABS: BASO % 0.1 % (0-2.0); EOS % 0.1 % (0-4.5); HEMATOCRIT 30.4 % (35.4-49); HEMOGLOBIN 10.4 GM/dL (11.7-16.9); LYMPH % 6.3 % (8-40); MCH 33.3 pg (25.7-33.7); MCHC 34.1 g/dl (32.0-35.9); MEAN CELL VOLUME 97.8 fl (80-96); MEAN PLT VOLUME 9.1 fl (7.5-11.1); MONO % 8.9 % (3.8-10.2); NEUT % 84.6 % (42.8-82.8); PLATELET COUNT 153 K/MM3 (134-434); RBC 3.11 M/mm3 (4.00-5.60); RDW 16.1 % (11.9-15.9); WHITE BLOOD COUNT 6.8 K/mm3 (4.0-10.0)
[2019-12-11 09:24] LABS: ALBUMIN 2.4 g/dl (3.4-5.0); CALCIUM 8.1 mg/dL (8.5-10.1); MAGNESIUM 2.2 mg/dL (1.8-2.4); PHOSPHOROUS 6.2 mg/dL (2.5-4.9); POTASSIUM 3.5 mmol/L (3.5-5.1); TOT PROT 5.5 g/dl (6.4-8.2)
[2019-12-11 09:30] LABS: BLOOD UREA NITROGEN 106.4 mg/dL (7-18); CREATININE 12.5 mg/dL (0.55-1.3)
[2019-12-11 15:12] VITALS: BMI 20.2
[2019-12-11] MEDS ORDERED: MELATONIN 5 MG TABLETS PO PRN (15:18)
[2019-12-11] MEDS ORDERED: METOCLOPRAMIDE HCL INJECTION 10 MG/2 ML VIAL IVPUSH PRN (15:21)
[2019-12-11] MEDS ORDERED: PANTOPRAZOLE 20 MG TABLET PO SCH (15:30)
[2019-12-11] MEDS: ALBUTEROL SO4 HFA INHALER IH SCH ×3 (16:00→21:52)
[2019-12-11] MEDS: LABETALOL HCL 200 MG TABLET (FP) PO SCH (21:52)
[2019-12-11] MEDS: LATANOPROST 0.005% OPHTH SOLN 2.5ML BOTTLE OU SCH ×2 (21:53→21:56)
[2019-12-11] MEDS: FAMOTIDINE 40 MG/5 ML ORAL SUSPENSION PO SCH (21:57)
[2019-12-11] MEDS ORDERED: SUCROFERRIC OXYHYDROXIDE 500 MG PO SCH (22:00)
--- NOTE | 2019-12-11 23:34 | PN ---
Progress Note (short form) - Note Progress Note: esrd s/p hd throat ca s/p peg - not clear for use Active Medications Abacavir Sulfate (Ziagen -) 600 mg PO DAILY [facility] Albuterol Sulfate (Ventolin Hfa Inhaler -) 2 puff IH Q6H [facility] Last Admin: 12/11/19 21:52 Dose: 2 puff Aspirin (Asa -) 81 mg PO DAILY [facility] Citalopram Hydrobromide (Celexa -) 10 mg PO DAILY [facility] Famotidine (Pepcid) 10 mg PO BID [facility] Last Admin: 12/11/19 21:57 Dose: 10 mg Heparin Sodium (Porcine) (Heparin -) 5,000 unit SQ Q8H-IV [facility] Last Admin: 12/11/19 18:24 Dose: 5,000 unit Labetalol HCl (Normodyne -) 400 mg PO BID [facility] Last Admin: 12/11/19 21:52 Dose: 400 mg Lamivudine (Epivir Oral Solution -) 50 mg PO DAILY [facility] Latanoprost (Xalatan 0.005% Eye Drops -) 1 drop OU HS [facility] Last Admin: 12/11/19 21:56 Dose: Not Given Losartan Potassium (Cozaar -) 100 mg PO DAILY [facility] Melatonin (Melatonin) 5 mg PO HS PRN PRN Reason: INSOMNIA Last Admin: 12/11/19 21:51 Dose: 5 mg Metoclopramide HCl (Reglan Injection -) 5 mg IVPUSH Q8H PRN PRN Reason: NAUSEA AND/OR VOMITING Nifedipine (Procardia Xl -) 90 mg PO DAILY [facility] Non-Formulary Medication (Sucroferric Oxyhydroxide [Velphoro]) 500 mg PO TID [facility] Polyethylene Glycol (Miralax (For Daily Use) -) 17 gm PO DAILY [facility] Umeclidinium/Vilanterol (Anoro Ellipta 62.5-25 Mcg Inh) 1 puff IH DAILY [facility] Last Vital Signs Temp Pulse Resp BP Pulse Ox 98.2 F 77 18 128/62 92 L 12/11/19 07:50 12/11/19 11:52 12/11/19 11:52 12/11/19 11:52 12/10/19 23:05 CBC, BMP 12/11/19 08:00 12/11/19 08:00 Uneventful HD
--- NOTE | 2019-12-12 01:13 | RAPID ---
Physical Examination Vital Signs: Vital Signs Temperature 98.2 F 12/11/19 07:50 Pulse Rate 77 12/11/19 11:52 Respiratory Rate 18 12/11/19 11:52 Blood Pressure 128/62 12/11/19 11:52 O2 Sat by Pulse Oximetry (%) 92 L 12/10/19 23:05 Labs: CBC, BMP 12/11/19 08:00 12/11/19 08:00 Rapid Response - Rapid Response Assessment: rapid response called overhead. VACATION GUIDE responded immediately. Report received from RN in room that they were walking with pt back from bathroom, pt began feeling weak. nurses laid him on the floor. pt states he feels dizzy. pt denies LOC although was observed to be shaking by nursing staff. pt had fecal incontinence pt did not hit his head or fall. Vitals: 97/67,85 PE: Gen: thin cachectic male , no acute distress Cardio: +S1S2 RRR Resp: breath sounds b/l, decreased at bases, scattered wheezes Abdominal exam: NTND Extremities: non edematous Orthostatics negative Plan: EKG CBC, CMP, Mg, Phos duonebs
[2019-12-12] MEDS ORDERED: ALBUTEROL SO4 2.5/IPRATROPIUM 0.5 INH SOL 3 ML VIAL.NEB. NEB ONE (01:17)
[2019-12-12 01:59] LABS: HEMATOCRIT 34.6 % (35.4-49); HEMOGLOBIN 11.3 GM/dL (11.7-16.9); MCH 32.6 pg (25.7-33.7); MCHC 32.6 g/dl (32.0-35.9); PLATELET COUNT 170 K/MM3 (134-434); RBC 3.46 M/mm3 (4.00-5.60); RDW 16.2 % (11.9-15.9)
[2019-12-12 02:33] LABS: ALBUMIN 2.5 g/dl (3.4-5.0); BILIRUBIN,TOTAL 0.6 mg/dL (0.2-1); BLOOD UREA NITROGEN 46.1 mg/dL (7-18); CALCIUM 8.1 mg/dL (8.5-10.1); POTASSIUM 3.7 mmol/L (3.5-5.1)
[2019-12-12 02:34] LABS: CREATININE 7.9 mg/dL (0.55-1.3)
[2019-12-12] MEDS: HEPARIN NA (PORCINE) 5,000 UNITS/ML 1ML VIAL SQ SCH ×3 (04:17→18:47)
[2019-12-12] MEDS: ALBUTEROL SO4 HFA INHALER IH SCH ×4 (04:18→22:47)
[2019-12-12 08:34] LABS: BASO % 0.1 % (0-2.0); EOS % 0.1 % (0-4.5); HEMATOCRIT 33.5 % (35.4-49); LYMPH % 9.5 % (8-40); MCH 32.9 pg (25.7-33.7); MCHC 32.8 g/dl (32.0-35.9); MEAN CELL VOLUME 100.1 fl (80-96); MEAN PLT VOLUME 9.1 fl (7.5-11.1); MONO % 10.6 % (3.8-10.2); NEUT % 79.7 % (42.8-82.8); PLATELET COUNT 174 K/MM3 (134-434); RBC 3.34 M/mm3 (4.00-5.60); RDW 16.1 % (11.9-15.9)
--- NOTE | 2019-12-12 08:37 | PN ---
Progress Note, Physician Chief Complaint: Last night patient had ROUTE CARRIER with hypotension, orthostatc hypotention History of Present Illness: 69-year-old male with multiple medical problems including end-stage renal disease on hemodialysisFriday, Friday, Friday, status post cardiac arrest x4 , long-term tobacco abuser, COPD, hypertension, dyslipidemia, HIV, laryngeal cancer status post radiation therapy at [facility], depression and anxiety with recent PEG tube placement-patient was evaluated by speech and swallow for dysphagia, determined that he was high risk for aspiration and needed PEG placement, eloped from hospital on 12/09/2019 because patient was unsatisfied with medical care. Yesterday NG tube feeding resumed patient feels improved but had episode of postural dizziness. - Current Medication List Current Medications: Active Medications Abacavir Sulfate (Ziagen -) 600 mg PO DAILY [facility] Albuterol Sulfate (Ventolin Hfa Inhaler -) 2 puff IH Q6H [facility] Last Admin: 12/12/19 04:18 Dose: 2 puff Aspirin (Asa -) 81 mg PO DAILY [facility] Citalopram Hydrobromide (Celexa -) 10 mg PO DAILY [facility] Famotidine (Pepcid) 10 mg PO BID [facility] Last Admin: 12/11/19 21:57 Dose: 10 mg Heparin Sodium (Porcine) (Heparin -) 5,000 unit SQ Q8H-IV [facility] Last Admin: 12/12/19 04:17 Dose: 5,000 unit Labetalol HCl (Normodyne -) 400 mg PO BID [facility] Last Admin: 12/11/19 21:52 Dose: 400 mg Lamivudine (Epivir Oral Solution -) 50 mg PO DAILY [facility] Latanoprost (Xalatan 0.005% Eye Drops -) 1 drop OU HS [facility] Last Admin: 12/11/19 21:56 Dose: Not Given Losartan Potassium (Cozaar -) 100 mg PO DAILY [facility] Melatonin (Melatonin) 5 mg PO HS PRN PRN Reason: INSOMNIA Last Admin: 12/11/19 21:51 Dose: 5 mg Metoclopramide HCl (Reglan Injection -) 5 mg IVPUSH Q8H PRN PRN Reason: NAUSEA AND/OR VOMITING Nifedipine (Procardia Xl -) 90 mg PO DAILY [facility] Non-Formulary Medication (Sucroferric Oxyhydroxide [Velphoro]) 500 mg PO TID [facility] Polyethylene Glycol (Miralax (For Daily Use) -) 17 gm PO DAILY [facility] Umeclidinium/Vilanterol (Anoro Ellipta 62.5-25 Mcg Inh) 1 puff IH DAILY [facility] - Objective Vital Signs: Vital Signs Temperature 98.5 F 12/12/19 06:00 Pulse Rate 81 12/12/19 06:00 Respiratory Rate 20 12/12/19 06:00 Blood Pressure 147/75 12/12/19 06:00 O2 Sat by Pulse Oximetry (%) 98 12/11/19 21:00 General: Elderly man, disabled sick looking irritable HEENT; mucous membranes moist, no anemia, no jaundice, PERRLA, no nystagmus Neck: No JVD, supple, no bruit, thyroid palpably normal, normal carotid pulsations. Chest: Nontender, clear to auscultation bilaterally/bilateral wheezing/ bilateral basal rales. CVS: S1-S2 regular/ Abdomen: PEG tube backslash nondistended, soft, bowel sounds present. 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 Code(s): N18.6 - END STAGE RENAL DISEASE (3) Dysphagia Assessment/Plan: Due to radiation mucositis for throat cancer, status post PEG, PEG position reconfirmed and with bleeding restarted after discussing with the dietitian. Code(s): R13.10 - DYSPHAGIA, UNSPECIFIED (4) HIV (human immunodeficiency virus infection) Assessment/Plan: Resume home medication Code(s): B20 - HUMAN IMMUNODEFICIENCY VIRUS [HIV] DISEASE (5) Weakness Assessment/Plan: Patient feels weak and orthostatic, prolonged dehydration as patient was unable to eat at home since he was discharged home, yesterday had hemodialysis, 250 normal saline follow-up with nephrology for volume resuscitation. Code(s): R53.1 - WEAKNESS (6) Anemia Assessment/Plan: Chronic H&H stable. Code(s): D64.9 - ANEMIA, UNSPECIFIED Qualifiers: Anemia type: unspecified type Qualified Code(s): D64.9 - Anemia, unspecified (7) Pre-syncope Assessment/Plan: Patient complaint of dizziness and feeling weak when getting up from the bed with documented low blood pressure, most likely due to hypovolemia secondary to starvation at home as after signing AMA patient was not taking anything at home , yesterday had hemodialysis, will follow-up EKG is normal, IV hydration, close observation, will discuss with renal for volume resuscitation, patient denies any chest pain shortness of breath or palpitation. Will observe Problems reviewed: Yes Code(s): R55 - SYNCOPE AND COLLAPSE
[2019-12-12 09:02] LABS: BLOOD UREA NITROGEN 49.1 mg/dL (7-18); POTASSIUM 3.5 mmol/L (3.5-5.1)
[2019-12-12 09:12] LABS: CREATININE 8.5 mg/dL (0.55-1.3)
--- NOTE | 2019-12-12 09:56 | EKG ---
Test Reason : Blood Pressure : / mmHG Vent. Rate : 075 BPM Atrial Rate : 075 BPM P-R Int : 148 ms QRS Dur : 098 ms QT Int : 386 ms P-R-T Axes : 050 053 260 degrees QTc Int : 431 ms SINUS RHYTHM WITH PREMATURE SUPRAVENTRICULAR COMPLEXES POSSIBLE LEFT ATRIAL ENLARGEMENT LEFT VENTRICULAR HYPERTROPHY T WAVE ABNORMALITY, CONSIDER INFEROLATERAL ISCHEMIA ABNORMAL ECG WHEN COMPARED WITH ECG OF 25-NOV-2019 12:03, PREMATURE SUPRAVENTRICULAR COMPLEXES ARE NOW PRESENT NON-SPECIFIC CHANGE IN ST SEGMENT IN INFERIOR LEADS T WAVE INVERSION NOW EVIDENT IN INFERIOR LEADS T WAVE INVERSION MORE EVIDENT IN LATERAL LEADS Confirmed by GUANAKO MCCAULEY MD ([id number]) on 12/12/2019 9:56:14 AM Referred By: Confirmed By:GUANAKO MCCAULEY MD
[2019-12-12] MEDS ORDERED: LAMIVUDINE 50 MG PO SCH (10:00)
[2019-12-12] MEDS: ASPIRIN 81 MG CHEWABLE TABLETS PO SCH (10:21)
[2019-12-12] MEDS: ABACAVIR SULFATE 300 MG TABLET PO SCH (10:22)
[2019-12-12] MEDS: LABETALOL HCL 200 MG TABLET (FP) PO SCH ×2 (10:22→23:09)
[2019-12-12] MEDS: FAMOTIDINE 40 MG/5 ML ORAL SUSPENSION PO SCH ×2 (10:22→22:46)
[2019-12-12] MEDS: lamiVUDine 10 MG/1 ML BULK BOTTLE PO SCH (10:22)
[2019-12-12] MEDS: NIFEdipine E.R. 90 MG TABLET PO SCH (10:22)
[2019-12-12] MEDS: CITALOPRAM HYDROBROMIDE 10 MG TABLET PO SCH (10:23)
[2019-12-12] MEDS: DOLUTEGRAVIR SODIUM 50 MG TABLET (NON-FORMULARY) PO SCH (10:23)
[2019-12-12] MEDS: POLYETHYLENE GLYCOL 3350 119 GM BTL PO SCH (10:27)
[2019-12-12] MEDS: LOSARTAN POTASSIUM 50 MG TABLET (FP) PO SCH (10:29)
[2019-12-12] MEDS: UMECLIDINIUM/VILANTEROL (ANORO) 62.5/25 MCG INHALER IH SCH (12:35)
[2019-12-12] MEDS ORDERED: SODIUM CHLORIDE 250 ML IV ONE (13:45)
--- NOTE | 2019-12-12 19:01 | PN ---
Progress Note (short form) - Note Progress Note: esrd s/p hd throat ca s/p peg - not clear for use Current Medications Abacavir Sulfate (Ziagen -) 600 mg PO DAILY [facility] Last Admin: 12/12/19 10:22 Dose: 600 mg Albuterol Sulfate (Ventolin Hfa Inhaler -) 2 puff IH Q6H [facility] Last Admin: 12/12/19 16:47 Dose: 2 puff Aspirin (Asa -) 81 mg PO DAILY [facility] Last Admin: 12/12/19 10:21 Dose: 81 mg Citalopram Hydrobromide (Celexa -) 10 mg PO DAILY [facility] Last Admin: 12/12/19 10:23 Dose: 10 mg Famotidine (Pepcid) 10 mg PO BID [facility] Last Admin: 12/12/19 10:22 Dose: 10 mg Heparin Sodium (Porcine) (Heparin -) 5,000 unit SQ Q8H-IV [facility] Last Admin: 12/12/19 18:47 Dose: 5,000 unit Labetalol HCl (Normodyne -) 400 mg PO BID [facility] Last Admin: 12/12/19 10:22 Dose: 400 mg Lamivudine (Epivir Oral Solution -) 50 mg PO DAILY [facility] Last Admin: 12/12/19 10:22 Dose: 50 mg Latanoprost (Xalatan 0.005% Eye Drops -) 1 drop OU HS [facility] Last Admin: 12/11/19 21:56 Dose: Not Given Losartan Potassium (Cozaar -) 100 mg PO DAILY [facility] Last Admin: 12/12/19 10:29 Dose: 100 mg Melatonin (Melatonin) 5 mg PO HS PRN PRN Reason: INSOMNIA Last Admin: 12/11/19 21:51 Dose: 5 mg Metoclopramide HCl (Reglan Injection -) 5 mg IVPUSH Q8H PRN PRN Reason: NAUSEA AND/OR VOMITING Nifedipine (Procardia Xl -) 90 mg PO DAILY [facility] Last Admin: 12/12/19 10:22 Dose: 90 mg Non-Formulary Medication (Sucroferric Oxyhydroxide [Velphoro]) 500 mg PO TID [facility] Polyethylene Glycol (Miralax (For Daily Use) -) 17 gm PO DAILY [facility] Last Admin: 12/12/19 10:27 Dose: 17 gm Umeclidinium/Vilanterol (Anoro Ellipta 62.5-25 Mcg Inh) 1 puff IH DAILY [facility] Last Admin: 12/12/19 12:35 Dose: 1 puff Last Vital Signs Temp Pulse Resp BP Pulse Ox 98.3 F 77 20 93/41 L 95 12/12/19 18:00 12/12/19 18:00 12/12/19 18:00 12/12/19 18:00 12/12/19 09:00 Lungs clear Heart rge Abd soft Ext no edema CBC, BMP 12/12/19 06:50 12/12/19 06:50 CBC, BMP 12/11/19 08:00 12/11/19 08:00 ESRD Throat ca? Dysphagia s/p PEG placement/ feeding in progress HD tomorrow
[2019-12-12] MEDS ORDERED: SODIUM CHLORIDE 250 ML IV PRN (19:02)
[2019-12-12] MEDS: LATANOPROST 0.005% OPHTH SOLN 2.5ML BOTTLE OU SCH (22:52)
[2019-12-13] MEDS: HEPARIN NA (PORCINE) 5,000 UNITS/ML 1ML VIAL SQ SCH ×4 (03:07→21:42)
[2019-12-13] MEDS: ALBUTEROL SO4 HFA INHALER IH SCH ×3 (03:10→18:01)
--- NOTE | 2019-12-13 08:18 | PN ---
Physical Exam: SUBJECTIVE: Patient seen and examined at bed side , feels dizzy and light headed , BP 100/60 , given 250 cc by nephrology , started on tube feeding , possible Dc in AM if symptoms resolved and had approved hsi tube feeding OBJECTIVE: Vital Signs Period Temp Pulse Resp BP Sys/Montes Pulse Ox Last 24 Hr 97.8 F-98.5 F 72-85 18-22 84-141/41-82 95-98 GENERAL: AAOx3 in NAD , with muffled voice , feels tired HEAD: NC/AT EYES: EOMI, Conjunctiva clear, sclera anicteric ENT: dry mucous membrane NECK: Supple, no JVD, LUNGS: CTA B/L HEART: RRR, , normal s1, s2, murmur no M/R/G ABDOMEN: Soft, ND, NT, +BS 4 Q, no CVA Tenderness LOWER EXTREMITIES: no edema, +2DP pulse, NEUROLOGICAL: No focal deficit. Normal speech. gait not observed. PSYCHIATRIC: Cooperative. Good eye contact. Appropriate mood and affect. SKIN: Warm, dry, Laboratory Results - last 24 hr 12/12/19 12/12/19 06:50 06:50 WBC 7.0 RBC 3.34 L Hgb 11.0 L Hct 33.5 L MCV 100.1 H MCH 32.9 MCHC 32.8 RDW 16.1 H Plt Count 174 MPV 9.1 Absolute Neuts (auto) 5.5 Neutrophils % 79.7 Lymphocytes % 9.5 D Monocytes % 10.6 H Eosinophils % 0.1 Basophils % 0.1 Nucleated RBC % 0 Sodium 139 Potassium 3.5 Chloride 98 Carbon Dioxide 32 Anion Gap 10 BUN 49.1 H Creatinine 8.5 H* Est GFR (CKD-EPI)AfAm 6.76 Est GFR (CKD-EPI)NonAf 5.83 Random Glucose 124 H Calcium 8.0 L Active Medications Generic Name Dose Route Start Last Admin Trade Name Freq PRN Reason Stop Dose Admin Abacavir Sulfate 600 mg 12/12/19 10:00 12/12/19 10:22 Ziagen - PO 600 mg DAILY [facility] Administration Albuterol Sulfate 2 puff 12/11/19 15:30 12/13/19 03:10 Ventolin Hfa Inhaler - IH 2 puff Q6H [facility] Administration Aspirin 81 mg 12/12/19 10:00 12/12/19 10:21 Asa - PO 81 mg DAILY [facility] Administration Citalopram Hydrobromide 10 mg 12/12/19 10:00 12/12/19 10:23 Celexa - PO 10 mg DAILY [facility] Administration Famotidine 10 mg 12/11/19 22:00 12/12/19 22:46 Pepcid PO 10 mg BID [facility] Administration Heparin Sodium (Porcine) 5,000 unit 12/11/19 02:00 12/13/19 03:07 Heparin - SQ 5,000 unit Q8H-IV [facility] Administration Sodium Chloride 250 mls @ 3,000 mls/hr 12/12/19 19:02 Normal Saline - IV 12/13/19 19:02 PRN PRN Hypotension during Dialysis Labetalol HCl 400 mg 12/11/19 22:00 12/12/19 23:09 Normodyne - PO Not Given BID [facility] Lamivudine 50 mg 12/12/19 10:00 12/12/19 10:22 Epivir Oral Solution - PO 50 mg DAILY [facility] Administration Latanoprost 1 drop 12/11/19 22:00 12/12/19 22:52 Xalatan 0.005% Eye Drops - OU Not Given HS [facility] Losartan Potassium 100 mg 12/12/19 10:00 12/12/19 10:29 Cozaar - PO 100 mg DAILY [facility] Administration Melatonin 5 mg 12/11/19 15:18 12/11/19 21:51 Melatonin PO 5 mg HS PRN Administration INSOMNIA Metoclopramide HCl 5 mg 12/11/19 15:21 Reglan Injection - IVPUSH Q8H PRN NAUSEA AND/OR VOMITING Nifedipine 90 mg 12/12/19 10:00 12/12/19 10:22 Procardia Xl - PO 90 mg DAILY [facility] Administration Non-Formulary Medication 500 mg 12/11/19 22:00 Sucroferric Oxyhydroxide [Velphoro] PO TID [facility] Polyethylene Glycol 17 gm 12/12/19 10:00 12/12/19 10:27 Miralax (For Daily Use) - PO 17 gm DAILY [facility] Administration Umeclidinium/Vilanterol 1 puff 12/12/19 10:00 12/12/19 12:35 Anoro Ellipta 62.5-25 Mcg Inh IH 1 puff DAILY [facility] Administration CBC, BMP 12/13/19 08:00 12/13/19 08:00 ASSESSMENT/PLAN: Patient is a 69 year old male with a history of HTN, hyperlipidemia, COPD, cardiac arrest, ESRD (on HD MWF), HIV, throat cancer s/p radiation therapy, depression, anxiety who presented to the ED to continue care, after eloping from the hospital yesterday. #Dysphagia 11/21 to mucositis/pharyngitis, RT for throat cancer * PEG tube placed on 12/08/2019 * KUB (12/09/2019) - There is some small bowel air distention could represent SBO or ileus. There is no sign of gross pneumoperitoneum. Following injection of contrast into the PEG tube, there was no sign of a leak or obstruction to flow * plan to start PEG tube in the morning once cleared * tube feeding * nystatin oral solution for oral thrush * cont fluconazole for oral mucosities #COPD * was on Solu-medrol 40mg daily since NPO * will continue Solu-medrol 40mg taper over 6 days * continue bronchodilators #ESRD * on dialysis * Nephrology consulted. * Plan for HD tomorrow #HTN * Continue Procardia XL, Labetalol, Cozaar, hold for BP below 110 systolic #Depression, anxiety * continue Celexa #HIV * continue HAART #FEN * 250 NS bolus * routine bmp monitoring * tube feeding nepro vs jevity pending nick setter recommendation #Prophylaxis * Heparin 5000u sq tid #Disposition full code # dispo med surg Visit type - Emergency Visit Emergency Visit: Yes ED Registration Date: 12/10/19 Care time: The patient presented to the Emergency Department on the above date and was hospitalized for further evaluation of their emergent condition. - New Patient This patient is new to me today: Yes Date on this admission: 12/13/19 - Critical Care Critical Care patient: No - Discharge Referral Referred to [facility] No ATTENDING PHYSICIAN STATEMENT I saw and evaluated the patient. I reviewed the resident's note and discussed the case with the resident. I agree with the resident's findings and plan as documented. SUBJECTIVE: OBJECTIVE: ASSESSMENT AND PLAN:
[2019-12-13 09:26] LABS: BASO % 0.3 % (0-2.0); EOS % 0.2 % (0-4.5); HEMATOCRIT 31.8 % (35.4-49); HEMOGLOBIN 10.6 GM/dL (11.7-16.9); MCH 33.2 pg (25.7-33.7); MCHC 33.4 g/dl (32.0-35.9); MEAN CELL VOLUME 99.3 fl (80-96); MEAN PLT VOLUME 9.2 fl (7.5-11.1); MONO % 7.8 % (3.8-10.2); NEUT % 81.7 % (42.8-82.8); PLATELET COUNT 181 K/MM3 (134-434); RBC 3.21 M/mm3 (4.00-5.60); RDW 16.4 % (11.9-15.9)
--- NOTE | 2019-12-13 09:42 | EKG ---
Test Reason : Blood Pressure : / mmHG Vent. Rate : 081 BPM Atrial Rate : 081 BPM P-R Int : 136 ms QRS Dur : 098 ms QT Int : 358 ms P-R-T Axes : 006 033 115 degrees QTc Int : 415 ms NORMAL SINUS RHYTHM WITH SINUS ARRHYTHMIA VOLTAGE CRITERIA FOR LEFT VENTRICULAR HYPERTROPHY T WAVE ABNORMALITY, CONSIDER LATERAL ISCHEMIA ABNORMAL ECG WHEN COMPARED WITH ECG OF 10-DEC-2019 19:17, PREMATURE SUPRAVENTRICULAR COMPLEXES ARE NO LONGER PRESENT NONSPECIFIC T WAVE ABNORMALITY HAS REPLACED INVERTED T WAVES IN INFERIOR LEADS Confirmed by Iraida Nath ([id number]) on 12/13/2019 9:42:37 AM Referred By: Confirmed By:Iraida Nath
[2019-12-13 09:49] LABS: ALBUMIN 2.4 g/dl (3.4-5.0); BILIRUBIN,TOTAL 0.5 mg/dL (0.2-1); BLOOD UREA NITROGEN 69.7 mg/dL (7-18); CALCIUM 8.2 mg/dL (8.5-10.1); POTASSIUM 3.2 mmol/L (3.5-5.1); TOT PROT 5.7 g/dl (6.4-8.2)
[2019-12-13] MEDS ORDERED: PT OWN MED DRAWER 7, Y5N ONE ×3 (10:06→21:06)
[2019-12-13] MEDS: FAMOTIDINE 40 MG/5 ML ORAL SUSPENSION PO SCH (10:11)
[2019-12-13 10:12] LABS: CREATININE 10.9 mg/dL (0.55-1.3)
[2019-12-13] MEDS: LABETALOL HCL 200 MG TABLET (FP) PO SCH (12:23)
[2019-12-13] MEDS: LOSARTAN POTASSIUM 50 MG TABLET (FP) PO SCH (12:23)
[2019-12-13] MEDS: NIFEdipine E.R. 90 MG TABLET PO SCH (12:24)
[2019-12-13] MEDS: DOLUTEGRAVIR SODIUM 50 MG TABLET (NON-FORMULARY) PO SCH (12:37)
[2019-12-13] MEDS: CITALOPRAM HYDROBROMIDE 10 MG TABLET PO SCH (12:38)
[2019-12-13] MEDS: ASPIRIN 81 MG CHEWABLE TABLETS PO SCH (12:38)
[2019-12-13] MEDS: lamiVUDine 10 MG/1 ML BULK BOTTLE PO SCH (12:39)
[2019-12-13] MEDS: ABACAVIR SULFATE 300 MG TABLET PO SCH (12:39)
[2019-12-13] MEDS: POLYETHYLENE GLYCOL 3350 119 GM BTL PO SCH (12:40)
[2019-12-13] MEDS: UMECLIDINIUM/VILANTEROL (ANORO) 62.5/25 MCG INHALER IH SCH (13:23)
[2019-12-13] MEDS ORDERED: LABETALOL HCL 200 MG TABLET (FP) PO SCH (15:17)
--- NOTE | 2019-12-13 15:21 | PN ---
Teaching Attending Note Name of Resident: Bravo Quinonez ATTENDING PHYSICIAN STATEMENT I saw and evaluated the patient. I reviewed the resident's note and discussed the case with the resident. I agree with the resident's findings and plan as documented. SUBJECTIVE: Patient feels better no episode of dizziness or syncope since yesterday once NG tube free water intake is increased. OBJECTIVE: Vital Signs Temperature 97.8 F 12/13/19 07:55 Pulse Rate 76 12/13/19 14:35 Respiratory Rate 18 12/13/19 14:35 Blood Pressure 85/43 L 12/13/19 14:35 O2 Sat by Pulse Oximetry (%) 98 12/12/19 21:00 -General: Elderly man, disabled sick looking irritable HEENT; mucous membranes moist, no anemia, no jaundice, PERRLA, no nystagmus Neck: No JVD, supple, no bruit, thyroid palpably normal, normal carotid pulsations. Chest: Nontender, clear to auscultation bilaterally/bilateral wheezing/ bilateral basal rales. CVS: S1-S2 regular/ Abdomen: PEG tube backslash nondistended, soft, bowel sounds present. 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 , no gross motor sensory deficit CBC, BMP 12/13/19 08:00 12/13/19 08:00 Active Medications Abacavir Sulfate (Ziagen -) 600 mg PO DAILY [facility] Last Admin: 12/13/19 12:39 Dose: 600 mg Albuterol Sulfate (Ventolin Hfa Inhaler -) 2 puff IH Q6H [facility] Last Admin: 12/13/19 09:35 Dose: Not Given Aspirin (Asa -) 81 mg PO DAILY [facility] Last Admin: 12/13/19 12:38 Dose: 81 mg Citalopram Hydrobromide (Celexa -) 10 mg PO DAILY [facility] Last Admin: 12/13/19 12:38 Dose: 10 mg Famotidine (Pepcid) 10 mg PO BID [facility] Last Admin: 12/13/19 10:11 Dose: 10 mg Heparin Sodium (Porcine) (Heparin -) 5,000 unit SQ Q8H-IV [facility] Last Admin: 12/13/19 10:00 Dose: Not Given Sodium Chloride (Normal Saline -) 250 mls @ 3,000 mls/hr IV PRN PRN PRN Reason: Hypotension during Dialysis Stop: 02/24/20 19:02 Labetalol HCl (Normodyne -) 400 mg PO BID [facility] Last Admin: 12/13/19 12:23 Dose: Not Given Lamivudine (Epivir Oral Solution -) 50 mg PO DAILY [facility] Last Admin: 12/13/19 12:39 Dose: 50 mg Latanoprost (Xalatan 0.005% Eye Drops -) 1 drop OU HS [facility] Last Admin: 12/12/19 22:52 Dose: Not Given Losartan Potassium (Cozaar -) 100 mg PO DAILY [facility] Last Admin: 12/13/19 12:23 Dose: Not Given Melatonin (Melatonin) 5 mg PO HS PRN PRN Reason: INSOMNIA Last Admin: 12/11/19 21:51 Dose: 5 mg Metoclopramide HCl (Reglan Injection -) 5 mg IVPUSH Q8H PRN PRN Reason: NAUSEA AND/OR VOMITING Nifedipine (Procardia Xl -) 90 mg PO DAILY [facility] Last Admin: 12/13/19 12:24 Dose: Not Given Non-Formulary Medication (Sucroferric Oxyhydroxide [Velphoro]) 500 mg PO TID [facility] Polyethylene Glycol (Miralax (For Daily Use) -) 17 gm PO DAILY [facility] Last Admin: 12/13/19 12:40 Dose: Not Given Umeclidinium/Vilanterol (Anoro Ellipta 62.5-25 Mcg Inh) 1 puff IH DAILY [facility] Last Admin: 12/13/19 13:23 Dose: 1 puff EKG: No interval changes ASSESSMENT AND PLAN:69-year-old male with multiple medical problems including end-stage renal disease on hemodialysisFriday, Friday, Friday, status post cardiac arrest x4, long-term tobacco abuser, COPD, hypertension, dyslipidemia, HIV, laryngeal cancer status post radiation therapy at [facility], depression and anxiety with recent PEG tube placement-patient was evaluated by speech and swallow for dysphagia, determined that he was high risk for aspiration and needed PEG placement, eloped from hospital on 12/09/2019 because patient was unsatisfied with medical care. NG tube feeding started after concluding a portion, patient episode of dizziness, most likely due to volume depletion. Plan: Patient has orthostatic changes and episode of hypotension, will decrease labetalol 200 mg twice daily, increase intake PEG tube, PT evaluation before DC home patient is home health/[facility] as a new one that bleeding at home. Problem List - Problems (1) HTN (hypertension) Assessment/Plan: Episode of hypotension will decrease labetalol to 200 mg twice daily, continue nifedipine 90 mg, continue losartan 100 mg, optimize blood pressure meds as needed. Code(s): I10 - ESSENTIAL (PRIMARY) HYPERTENSION (2) ESRD (end stage renal disease) Assessment/Plan: Patient missed hemodialysis presents with volume overload last night received urgent hemodialysis. Code(s): N18.6 - END STAGE RENAL DISEASE (3) Dysphagia Assessment/Plan: Due to radiation mucositis for throat cancer, status post PEG, PEG position reconfirmed and tube feeding started after discussing with the dietitian. Code(s): R13.10 - DYSPHAGIA, UNSPECIFIED (4) HIV (human immunodeficiency virus infection) Assessment/Plan: Resume home medication Code(s): B20 - HUMAN IMMUNODEFICIENCY VIRUS [HIV] DISEASE (5) Weakness Assessment/Plan: Patient feels weak and orthostatic, prolonged dehydration as patient was unable to eat at home since he was discharged home, yesterday had hemodialysis, 250 normal saline follow-up with nephrology for volume resuscitation. Code(s): R53.1 - WEAKNESS (6) Anemia Assessment/Plan: Chronic H&H stable. Code(s): D64.9 - ANEMIA, UNSPECIFIED Qualifiers: Anemia type: unspecified type Qualified Code(s): D64.9 - Anemia, unspecified (7) Pre-syncope Assessment/Plan: Patient complaint of dizziness and feeling weak when getting up from the bed with documented low blood pressure, most likely due to hypovolemia secondary to starvation at home as after signing AMA patient was not taking anything at home , yesterday had hemodialysis, will follow-up EKG is normal, IV hydration, close observation, will discuss with renal for volume resuscitation, patient denies any chest pain shortness of breath or palpitation. Will observe Code(s): R55 - SYNCOPE AND COLLAPSE
[2019-12-13] MEDS ORDERED: ALBUTEROL SO4 2.5/IPRATROPIUM 0.5 INH SOL 3 ML VIAL.NEB. NEB PRN (15:35)
[2019-12-13] MEDS ORDERED: ALBUTEROL SO4 HFA INHALER IH PRN (15:37)
[2019-12-13] MEDS ORDERED: methylPREDNISolone NA SUCC 40 MG/1 ML VIAL IVPUSH ONE (16:43)
[2019-12-13] MEDS: KCL 10 MEQ IVPB 10 MEQ/100 ML INFUS.BAG IVPB SCH (18:00)
[2019-12-13] MEDS ORDERED: POTASSIUM CHLORIDE TABS 20 MEQ TABLET.ER (FP) PO ONE (19:30)
--- NOTE | 2019-12-13 19:32 | PN ---
Progress Note, Physician History of Present Illness: Pt seen and examined at bedside. He tolerated HD however was hypotensive when he went back to his room. His bp improved with a 500 cc bolus. - Current Medication List Current Medications: Active Medications Abacavir Sulfate (Ziagen -) 600 mg PO DAILY [facility] Last Admin: 12/13/19 12:39 Dose: 600 mg Albuterol Sulfate (Ventolin Hfa Inhaler -) 2 puff IH Q6H PRN PRN Reason: SHORTNESS OF BREATH Albuterol/Ipratropium (Duoneb -) 1 amp NEB Q6H PRN PRN Reason: SHORTNESS OF BREATH Aspirin (Asa -) 81 mg PO DAILY [facility] Last Admin: 12/13/19 12:38 Dose: 81 mg Citalopram Hydrobromide (Celexa -) 10 mg PO DAILY [facility] Last Admin: 12/13/19 12:38 Dose: 10 mg Famotidine (Pepcid) 10 mg PO BID [facility] Last Admin: 12/13/19 10:11 Dose: 10 mg Fluconazole (Diflucan -) 100 mg PO DAILY [facility] Heparin Sodium (Porcine) (Heparin -) 5,000 unit SQ Q8H-IV [facility] Last Admin: 12/13/19 18:17 Dose: 5,000 unit Labetalol HCl (Normodyne -) 200 mg PO BID [facility] Lamivudine (Epivir Oral Solution -) 50 mg PO DAILY [facility] Last Admin: 12/13/19 12:39 Dose: 50 mg Latanoprost (Xalatan 0.005% Eye Drops -) 1 drop OU HS [facility] Last Admin: 12/12/19 22:52 Dose: Not Given Losartan Potassium (Cozaar -) 100 mg PO DAILY [facility] Last Admin: 12/13/19 12:23 Dose: Not Given Melatonin (Melatonin) 5 mg PO HS PRN PRN Reason: INSOMNIA Last Admin: 12/11/19 21:51 Dose: 5 mg Methylprednisolone Sodium Succinate (Solu-Medrol -) 40 mg IVPUSH DAILY [facility] Stop: 12/15/19 09:59 Methylprednisolone Sodium Succinate (Solu-Medrol -) 35 mg IVPUSH DAILY [facility] Stop: 12/16/19 09:59 Methylprednisolone Sodium Succinate (Solu-Medrol -) 30 mg IVPUSH DAILY [facility] Stop: 12/17/19 09:59 Methylprednisolone Sodium Succinate (Solu-Medrol -) 25 mg IVPUSH DAILY [facility] Stop: 12/18/19 09:59 Methylprednisolone Sodium Succinate (Solu-Medrol -) 20 mg IVPUSH DAILY [facility] Stop: 12/19/19 09:59 Methylprednisolone Sodium Succinate (Solu-Medrol -) 10 mg IVPUSH DAILY [facility] Stop: 12/20/19 09:59 Metoclopramide HCl (Reglan Injection -) 5 mg IVPUSH Q8H PRN PRN Reason: NAUSEA AND/OR VOMITING Nifedipine (Procardia Xl -) 90 mg PO DAILY [facility] Last Admin: 12/13/19 12:24 Dose: Not Given Non-Formulary Medication (Sucroferric Oxyhydroxide [Velphoro]) 500 mg PO TID [facility] Polyethylene Glycol (Miralax (For Daily Use) -) 17 gm PO DAILY [facility] Last Admin: 12/13/19 12:40 Dose: Not Given Umeclidinium/Vilanterol (Anoro Ellipta 62.5-25 Mcg Inh) 1 puff IH DAILY [facility] Last Admin: 12/13/19 13:23 Dose: 1 puff - Objective Vital Signs: Vital Signs Temperature 97.8 F 12/13/19 18:42 Pulse Rate 83 12/13/19 18:42 Respiratory Rate 18 12/13/19 18:42 Blood Pressure 114/64 12/13/19 18:42 O2 Sat by Pulse Oximetry (%) 98 12/12/19 21:00 Constitutional: Yes: Calm Eyes: Yes: Conjunctiva Clear HENT: Yes: Atraumatic Neck: Yes: Supple Cardiovascular: Yes: S1, S2 Respiratory: Yes: CTA Bilaterally Gastrointestinal: Yes: Normal Bowel Sounds, Soft Genitourinary: Yes: WNL Musculoskeletal: Yes: WNL Edema: No Neurological: Yes: Oriented Labs: CBC, BMP 12/13/19 08:00 12/13/19 08:00 Assessment/Plan Current Medications Generic Name Dose Route Start Last Admin Trade Name Freq PRN Reason Stop Dose Admin Abacavir Sulfate 600 mg 12/12/19 10:00 12/13/19 12:39 Ziagen - PO 600 mg DAILY [facility] Administration Albuterol Sulfate 2 puff 12/13/19 15:37 Ventolin Hfa Inhaler - IH Q6H PRN SHORTNESS OF BREATH Albuterol/Ipratropium 1 amp 12/13/19 15:35 Duoneb - NEB Q6H PRN SHORTNESS OF BREATH Aspirin 81 mg 12/12/19 10:00 12/13/19 12:38 Asa - PO 81 mg DAILY [facility] Administration Citalopram Hydrobromide 10 mg 12/12/19 10:00 12/13/19 12:38 Celexa - PO 10 mg DAILY [facility] Administration Famotidine 10 mg 12/11/19 22:00 12/13/19 10:11 Pepcid PO 10 mg BID [facility] Administration Fluconazole 100 mg 12/14/19 10:00 Diflucan - PO DAILY [facility] Heparin Sodium (Porcine) 5,000 unit 12/11/19 02:00 12/13/19 18:17 Heparin - SQ 5,000 unit Q8H-IV [facility] Administration Labetalol HCl 200 mg 12/13/19 15:17 Normodyne - PO BID [facility] Lamivudine 50 mg 12/12/19 10:00 12/13/19 12:39 Epivir Oral Solution - PO 50 mg DAILY [facility] Administration Latanoprost 1 drop 12/11/19 22:00 12/12/19 22:52 Xalatan 0.005% Eye Drops - OU Not Given HS [facility] Losartan Potassium 100 mg 12/12/19 10:00 12/13/19 12:23 Cozaar - PO Not Given DAILY [facility] Melatonin 5 mg 12/11/19 15:18 12/11/19 21:51 Melatonin PO 5 mg HS PRN Administration INSOMNIA Methylprednisolone Sodium Succinate 40 mg 12/14/19 10:00 Solu-Medrol - IVPUSH 12/15/19 09:59 DAILY [facility] Methylprednisolone Sodium Succinate 35 mg 12/15/19 10:00 Solu-Medrol - IVPUSH 12/16/19 09:59 DAILY [facility] Methylprednisolone Sodium Succinate 30 mg 12/16/19 10:00 Solu-Medrol - IVPUSH 12/17/19 09:59 DAILY [facility] Methylprednisolone Sodium Succinate 25 mg 12/17/19 10:00 Solu-Medrol - IVPUSH 12/18/19 09:59 DAILY [facility] Methylprednisolone Sodium Succinate 20 mg 12/18/19 10:00 Solu-Medrol - IVPUSH 12/19/19 09:59 DAILY [facility] Methylprednisolone Sodium Succinate 10 mg 12/19/19 10:00 Solu-Medrol - IVPUSH 12/20/19 09:59 DAILY [facility] Metoclopramide HCl 5 mg 12/11/19 15:21 Reglan Injection - IVPUSH Q8H PRN NAUSEA AND/OR VOMITING Nifedipine 90 mg 12/12/19 10:00 12/13/19 12:24 Procardia Xl - PO Not Given DAILY [facility] Non-Formulary Medication 500 mg 12/11/19 22:00 Sucroferric Oxyhydroxide [Velphoro] PO TID [facility] Polyethylene Glycol 17 gm 12/12/19 10:00 12/13/19 12:40 Miralax (For Daily Use) - PO Not Given DAILY [facility] Potassium Chloride 20 meq 12/13/19 19:30 K-Dur - PO 12/13/19 19:31 ONCE ONE Umeclidinium/Vilanterol 1 puff 12/12/19 10:00 12/13/19 13:23 Anoro Ellipta 62.5-25 Mcg Inh IH 1 puff DAILY [facility] Administration 1. hypotension 2. ESRD on HD 3. anemia 4. Hypertension 5. Hx of Cardiac arrest 6. HIV 7. hypokalemia Plan - will give a small dose of potassium - use 3 k bath on hd - pt responded to 500 cc bolus, will need to re-asses dry weight - repeat labs in am
[2019-12-13] MEDS: FAMOTIDINE 10 MG TABLET PO SCH (21:33)
[2019-12-13] MEDS: LATANOPROST 0.005% OPHTH SOLN 2.5ML BOTTLE OU SCH (21:53)
--- NOTE | 2019-12-14 05:59 | PN ---
Physical Exam: SUBJECTIVE: Patient seen and examined at bed side , dizzy and light headed improved today , BP 111/60 , given 250 cc , started on tube feeding , possible Dc in AM if symptoms resolved and had approved hi tube feeding by insurance OBJECTIVE: Vital Signs Period Temp Pulse Resp BP Sys/Montes Pulse Ox Last 24 Hr 97.8 F-98.5 F 72-92 18-24 85-141/43-82 98-100 GENERAL: AAOx3 in NAD , with muffled voice , feels tired , left arm fistula HEAD: NC/AT EYES: EOMI, Conjunctiva clear, sclera anicteric ENT: dry mucous membrane NECK: Supple, no JVD, LUNGS: CTA B/L HEART: RRR, , normal s1, s2, murmur no M/R/G ABDOMEN: Soft, ND, NT, +BS 4 Q, no CVA Tenderness LOWER EXTREMITIES: no edema, +2DP pulse, NEUROLOGICAL: No focal deficit. Normal speech. gait not observed. PSYCHIATRIC: Cooperative. Good eye contact. Appropriate mood and affect. SKIN: Warm, dry, Laboratory Results - last 24 hr 12/13/19 12/13/19 12/13/19 08:00 08:00 12:08 WBC 8.0 RBC 3.21 L Hgb 10.6 L Hct 31.8 L MCV 99.3 H MCH 33.2 MCHC 33.4 RDW 16.4 H Plt Count 181 MPV 9.2 Absolute Neuts (auto) 6.6 Neutrophils % 81.7 Lymphocytes % 10.0 Monocytes % 7.8 Eosinophils % 0.2 D Basophils % 0.3 Nucleated RBC % 0 Sodium 139 Potassium 3.2 L Chloride 98 Carbon Dioxide 28 Anion Gap 12 BUN 69.7 H Creatinine 10.9 H* Est GFR (CKD-EPI)AfAm 5.00 Est GFR (CKD-EPI)NonAf 4.32 POC Glucometer 100 Random Glucose 133 H Calcium 8.2 L Total Bilirubin 0.5 AST 15 ALT 20 Alkaline Phosphatase 141 H Total Protein 5.7 L Albumin 2.4 L Active Medications Generic Name Dose Route Start Last Admin Trade Name Freq PRN Reason Stop Dose Admin Abacavir Sulfate 600 mg 12/12/19 10:00 12/13/19 12:39 Ziagen - PO 600 mg DAILY [facility] Administration Albuterol Sulfate 2 puff 12/13/19 15:37 Ventolin Hfa Inhaler - IH Q6H PRN SHORTNESS OF BREATH Albuterol/Ipratropium 1 amp 12/13/19 15:35 Duoneb - NEB Q6H PRN SHORTNESS OF BREATH Aspirin 81 mg 12/12/19 10:00 12/13/19 12:38 Asa - PO 81 mg DAILY [facility] Administration Citalopram Hydrobromide 10 mg 12/12/19 10:00 12/13/19 12:38 Celexa - PO 10 mg DAILY [facility] Administration Famotidine 10 mg 12/13/19 22:00 12/13/19 21:33 Acid Tobacco Weigher PO 10 mg BID [facility] Administration Fluconazole 100 mg 12/14/19 10:00 Diflucan - PO DAILY [facility] Heparin Sodium (Porcine) 5,000 unit 12/13/19 22:00 12/13/19 21:42 Heparin - SQ 5,000 unit TID [facility] Administration Labetalol HCl 200 mg 12/13/19 15:17 12/13/19 21:33 Normodyne - PO 200 mg BID [facility] Administration Lamivudine 50 mg 12/12/19 10:00 12/13/19 12:39 Epivir Oral Solution - PO 50 mg DAILY [facility] Administration Latanoprost 1 drop 12/11/19 22:00 12/13/19 21:53 Xalatan 0.005% Eye Drops - OU Not Given HS [facility] Losartan Potassium 100 mg 12/12/19 10:00 12/13/19 12:23 Cozaar - PO Not Given DAILY [facility] Melatonin 5 mg 12/11/19 15:18 12/11/19 21:51 Melatonin PO 5 mg HS PRN Administration INSOMNIA Methylprednisolone Sodium Succinate 40 mg 12/14/19 10:00 Solu-Medrol - IVPUSH 12/15/19 09:59 DAILY [facility] Methylprednisolone Sodium Succinate 35 mg 12/15/19 10:00 Solu-Medrol - IVPUSH 12/16/19 09:59 DAILY [facility] Methylprednisolone Sodium Succinate 30 mg 12/16/19 10:00 Solu-Medrol - IVPUSH 12/17/19 09:59 DAILY [facility] Methylprednisolone Sodium Succinate 25 mg 12/17/19 10:00 Solu-Medrol - IVPUSH 12/18/19 09:59 DAILY [facility] Methylprednisolone Sodium Succinate 20 mg 12/18/19 10:00 Solu-Medrol - IVPUSH 12/19/19 09:59 DAILY [facility] Methylprednisolone Sodium Succinate 10 mg 12/19/19 10:00 Solu-Medrol - IVPUSH 12/20/19 09:59 DAILY [facility] Metoclopramide HCl 5 mg 12/11/19 15:21 Reglan Injection - IVPUSH Q8H PRN NAUSEA AND/OR VOMITING Nifedipine 90 mg 12/12/19 10:00 12/13/19 12:24 Procardia Xl - PO Not Given DAILY [facility] Non-Formulary Medication 500 mg 12/11/19 22:00 Sucroferric Oxyhydroxide [Velphoro] PO TID [facility] Polyethylene Glycol 17 gm 12/12/19 10:00 12/13/19 12:40 Miralax (For Daily Use) - PO Not Given DAILY [facility] Umeclidinium/Vilanterol 1 puff 12/12/19 10:00 12/13/19 13:23 Anoro Ellipta 62.5-25 Mcg Inh IH 1 puff DAILY [facility] Administration CBC, BMP 12/14/19 07:33 12/14/19 07:33 ASSESSMENT/PLAN: Patient is a 69 year old male with a history of HTN, hyperlipidemia, COPD, cardiac arrest, ESRD (on HD MWF), HIV, throat cancer s/p radiation therapy, depression, anxiety who presented to the ED to continue care, after eloping from the hospital yesterday. #Dysphagia 2/2 to mucositis/pharyngitis, RT for throat cancer * PEG tube placed on 12/08/2019 * KUB (12/09/2019) - There is some small bowel air distention could represent SBO or ileus. There is no sign of gross pneumoperitoneum. Following injection of contrast into the PEG tube, there was no sign of a leak or obstruction to flow * plan to start PEG tube in the morning once cleared * tube feeding * nystatin oral solution for oral thrush * cont fluconazole for oral mucosities # Hypotensive likley due to low intake , cont tube feeding , will increase fluids with feeding , given 250 CC bolus , hold bP mediciation for bP less than 120 systolic #COPD * was on Solu-medrol 40mg daily since NPO * will continue Solu-medrol 40mg taper over 6 days * continue bronchodilators #ESRD * on dialysis * Nephrology consulted. #HTN * Continue Procardia XL, Labetalol, Cozaar, hold for BP below 110 systolic #Depression, anxiety * continue Celexa #HIV * continue HAART #FEN * 250 NS bolus * routine bmp monitoring * tube feeding two eldon increase fluids to 30 ml with feeding #Prophylaxis * Heparin 5000u sq tid #Disposition full code # dispo med surg possible dc in AM Visit type - Emergency Visit Emergency Visit: Yes ED Registration Date: 12/10/19 Care time: The patient presented to the Emergency Department on the above date and was hospitalized for further evaluation of their emergent condition. - New Patient This patient is new to me today: No - Critical Care Critical Care patient: No - Discharge Referral Referred to [facility] No ATTENDING PHYSICIAN STATEMENT I saw and evaluated the patient. I reviewed the resident's note and discussed the case with the resident. I agree with the resident's findings and plan as documented. SUBJECTIVE: OBJECTIVE: ASSESSMENT AND PLAN:
[2019-12-14] MEDS: HEPARIN NA (PORCINE) 5,000 UNITS/ML 1ML VIAL SQ SCH ×3 (06:58→21:40)
[2019-12-14 09:00] LABS: BASO % 0.1 % (0-2.0); EOS % 0.1 % (0-4.5); HEMATOCRIT 34.1 % (35.4-49); LYMPH % 11.1 % (8-40); MCH 32.6 pg (25.7-33.7); MCHC 32.3 g/dl (32.0-35.9); MEAN CELL VOLUME 100.7 fl (80-96); MEAN PLT VOLUME 9.2 fl (7.5-11.1); MONO % 5.3 % (3.8-10.2); NEUT % 83.4 % (42.8-82.8); PLATELET COUNT 183 K/MM3 (134-434); RBC 3.39 M/mm3 (4.00-5.60); RDW 16.4 % (11.9-15.9); WHITE BLOOD COUNT 8.2 K/mm3 (4.0-10.0)
[2019-12-14] MEDS: LABETALOL HCL 200 MG TABLET (FP) PO SCH ×2 (09:01→21:39)
[2019-12-14 09:35] LABS: ALBUMIN 2.5 g/dl (3.4-5.0); BILIRUBIN,TOTAL 0.4 mg/dL (0.2-1); BLOOD UREA NITROGEN 40.4 mg/dL (7-18); CALCIUM 8.9 mg/dL (8.5-10.1); CREATININE 7.3 mg/dL (0.55-1.3); MAGNESIUM 2.4 mg/dL (1.8-2.4); PHOSPHOROUS 2.9 mg/dL (2.5-4.9); POTASSIUM 3.8 mmol/L (3.5-5.1); TOT PROT 6.3 g/dl (6.4-8.2)
--- NOTE | 2019-12-14 09:41 | EKG ---
Test Reason : Blood Pressure : / mmHG Vent. Rate : 070 BPM Atrial Rate : 070 BPM P-R Int : 130 ms QRS Dur : 112 ms QT Int : 450 ms P-R-T Axes : -01 047 095 degrees QTc Int : 486 ms POOR DATA QUALITY, INTERPRETATION MAY BE ADVERSELY AFFECTED SINUS RHYTHM WITH PREMATURE ATRIAL COMPLEXES VOLTAGE CRITERIA FOR LEFT VENTRICULAR HYPERTROPHY NONSPECIFIC T WAVE ABNORMALITY ABNORMAL ECG Confirmed by Albert Cruz MD ([id number]) on 12/14/2019 9:41:27 AM Referred By: Confirmed By:Albert Cruz MD
[2019-12-14] MEDS ORDERED: LOSARTAN POTASSIUM 50 MG TABLET (FP) PO SCH ×2 (10:00→15:21)
[2019-12-14] MEDS ORDERED: PANTOPRAZOLE SODIUM 40 MG VIAL IVPUSH SCH (10:00)
[2019-12-14] MEDS ORDERED: methylPREDNISolone NA SUCC 40 MG/1 ML VIAL IVPUSH SCH ×2 (10:00)
[2019-12-14] MEDS ORDERED: NIFEdipine E.R. 90 MG TABLET PO SCH (10:00)
--- NOTE | 2019-12-14 10:04 | PN ---
Teaching Attending Note Name of Resident: Bravo Quinonez ATTENDING PHYSICIAN STATEMENT I saw and evaluated the patient. I reviewed the resident's note and discussed the case with the resident. I agree with the resident's findings and plan as documented. SUBJECTIVE: Patient has no complaints. OBJECTIVE: Vital Signs Period Temp Pulse Resp BP Sys/Montes Pulse Ox Last 24 Hr 97.2 F-98.5 F 72-92 18-24 85-138/43-75 100 HEART: S1S2, RRR LUNGS: Clear ABDOMEN: Soft, non-tender, non-distended, normal BS, PEG in place EXTREMITIES: No edema Laboratory Results - last 24 hr 12/13/19 12/13/19 12/14/19 08:00 12:08 07:33 WBC 8.2 RBC 3.39 L Hgb 11.0 L Hct 34.1 L MCV 100.7 H MCH 32.6 MCHC 32.3 RDW 16.4 H Plt Count 183 MPV 9.2 Absolute Neuts (auto) 6.9 Neutrophils % 83.4 H Lymphocytes % 11.1 Monocytes % 5.3 Eosinophils % 0.1 Basophils % 0.1 Nucleated RBC % 0 Sodium Potassium Chloride Carbon Dioxide Anion Gap BUN Creatinine 10.9 H* Est GFR (CKD-EPI)AfAm Est GFR (CKD-EPI)NonAf POC Glucometer 100 Random Glucose Calcium Phosphorus Magnesium Total Bilirubin AST ALT Alkaline Phosphatase Total Protein Albumin 12/14/19 07:33 WBC RBC Hgb Hct MCV MCH MCHC RDW Plt Count MPV Absolute Neuts (auto) Neutrophils % Lymphocytes % Monocytes % Eosinophils % Basophils % Nucleated RBC % Sodium 143 Potassium 3.8 Chloride 102 Carbon Dioxide 32 Anion Gap 8 BUN 40.4 H Creatinine 7.3 H Est GFR (CKD-EPI)AfAm 8.12 Est GFR (CKD-EPI)NonAf 7.01 POC Glucometer Random Glucose 111 H Calcium 8.9 Phosphorus 2.9 Magnesium 2.4 Total Bilirubin 0.4 AST 13 L ALT 22 Alkaline Phosphatase 139 H Total Protein 6.3 L Albumin 2.5 L Current Medications Generic Name Dose Route Start Last Admin Trade Name Freq PRN Reason Stop Dose Admin Abacavir Sulfate 600 mg 12/12/19 10:00 12/13/19 12:39 Ziagen - PO 600 mg DAILY [facility] Administration Albuterol Sulfate 2 puff 12/13/19 15:37 Ventolin Hfa Inhaler - IH Q6H PRN SHORTNESS OF BREATH Albuterol/Ipratropium 1 amp 12/13/19 15:35 Duoneb - NEB Q6H PRN SHORTNESS OF BREATH Aspirin 81 mg 12/12/19 10:00 12/13/19 12:38 Asa - PO 81 mg DAILY [facility] Administration Citalopram Hydrobromide 10 mg 12/12/19 10:00 12/13/19 12:38 Celexa - PO 10 mg DAILY [facility] Administration Famotidine 10 mg 12/13/19 22:00 12/13/19 21:33 Acid Delicatessen Slicer PO 10 mg BID [facility] Administration Fluconazole 100 mg 12/14/19 10:00 Diflucan - PO DAILY [facility] Heparin Sodium (Porcine) 5,000 unit 12/13/19 22:00 12/14/19 06:58 Heparin - SQ 5,000 unit TID [facility] Administration Labetalol HCl 200 mg 12/14/19 10:00 12/14/19 09:01 Normodyne - PO Not Given BID [facility] Lamivudine 50 mg 12/12/19 10:00 12/13/19 12:39 Epivir Oral Solution - PO 50 mg DAILY [facility] Administration Latanoprost 1 drop 12/11/19 22:00 12/13/19 21:53 Xalatan 0.005% Eye Drops - OU Not Given HS [facility] Losartan Potassium 100 mg 12/14/19 10:00 12/14/19 09:02 Cozaar - PO Not Given DAILY [facility] Melatonin 5 mg 12/11/19 15:18 12/11/19 21:51 Melatonin PO 5 mg HS PRN Administration INSOMNIA Methylprednisolone Sodium Succinate 40 mg 12/14/19 10:00 Solu-Medrol - IVPUSH 12/15/19 09:59 DAILY [facility] Methylprednisolone Sodium Succinate 35 mg 12/15/19 10:00 Solu-Medrol - IVPUSH 12/16/19 09:59 DAILY [facility] Methylprednisolone Sodium Succinate 30 mg 12/16/19 10:00 Solu-Medrol - IVPUSH 12/17/19 09:59 DAILY [facility] Methylprednisolone Sodium Succinate 25 mg 12/17/19 10:00 Solu-Medrol - IVPUSH 12/18/19 09:59 DAILY [facility] Methylprednisolone Sodium Succinate 20 mg 12/18/19 10:00 Solu-Medrol - IVPUSH 12/19/19 09:59 DAILY [facility] Methylprednisolone Sodium Succinate 10 mg 12/19/19 10:00 Solu-Medrol - IVPUSH 12/20/19 09:59 DAILY [facility] Metoclopramide HCl 5 mg 12/11/19 15:21 Reglan Injection - IVPUSH Q8H PRN NAUSEA AND/OR VOMITING Nifedipine 90 mg 12/14/19 10:00 12/14/19 09:01 Procardia Xl - PO Not Given DAILY [facility] Non-Formulary Medication 500 mg 12/11/19 22:00 Sucroferric Oxyhydroxide [Velphoro] PO TID [facility] Polyethylene Glycol 17 gm 12/12/19 10:00 12/13/19 12:40 Miralax (For Daily Use) - PO Not Given DAILY [facility] Umeclidinium/Vilanterol 1 puff 12/12/19 10:00 12/13/19 13:23 Anoro Ellipta 62.5-25 Mcg Inh IH 1 puff DAILY [facility] Administration ASSESSMENT AND PLAN: This is a 69 year old man with a history of HTN, hyperlipidemia, COPD, cardiac arrest, ESRD, HIV, throat cancer, depression, anxiety, dysphagia and recent PEG placement who presented to the ED with hunger and weakness after signing out AMA after PEG was placed. 1. Severe malnutrition - Has PEG - TwoCal started - Nepro was recommended but home infusion company requested trial of a standard formula 2. Dysphagia secondary to mucositis/pharyngitis, possible thrush, RT for throat cancer - Continue Diflucan - Has PEG 3. Recent acute exacerbation of COPD - Complete steroid taper - Continue Anoro 4. ESRD - Continue HD per nephrology - Continue Velphoro 5. HTN - Continue Procardia XL, Labetalol, Cozaar 6. Hyperlipidemia 7. Depression with anxiety - Continue Celexa 8. HIV - Continue Epivir, Ziagen 9. History of cardiac arrest 10. Nicotine dependence
[2019-12-14] MEDS: ASPIRIN 81 MG CHEWABLE TABLETS PO SCH (10:07)
[2019-12-14] MEDS: CITALOPRAM HYDROBROMIDE 10 MG TABLET PO SCH (10:08)
[2019-12-14] MEDS: FLUCONAZOLE 100 MG TABLET (UD) PO SCH (10:08)
[2019-12-14] MEDS: lamiVUDine 10 MG/1 ML BULK BOTTLE PO SCH (10:09)
[2019-12-14] MEDS: ABACAVIR SULFATE 300 MG TABLET PO SCH (10:09)
[2019-12-14] MEDS ORDERED: SODIUM CHLORIDE 250 ML IV STA (10:10)
[2019-12-14] MEDS: DOLUTEGRAVIR SODIUM 50 MG TABLET (NON-FORMULARY) PO SCH (10:13)
[2019-12-14] MEDS: UMECLIDINIUM/VILANTEROL (ANORO) 62.5/25 MCG INHALER IH SCH (10:15)
[2019-12-14] MEDS: FAMOTIDINE 10 MG TABLET PO SCH ×2 (10:40→21:40)
--- NOTE | 2019-12-14 15:20 | PN ---
Progress Note (short form) - Note Progress Note: Renal follow up for ERSD on HD Seen and examined at the bedside awake and alert offers no acute complaints s/p dialysis yesterday no chest pain, N/V/D on tube feeds Vital Signs Temperature 97.2 F L 12/14/19 06:00 Pulse Rate 80 12/14/19 12:30 Respiratory Rate 18 12/14/19 12:30 Blood Pressure 114/62 12/14/19 12:30 O2 Sat by Pulse Oximetry (%) 97 12/14/19 09:00 Intake & Output 12/11/19 12/12/19 12/13/19 12/14/19 23:59 23:59 23:59 23:59 Intake Total 780 2020 750 900 Output Total 2500 1235 Balance -1720 2020 -485 900 Weight 69.4 kg NAD awake and alert RRR Dec BS soft NT/ND no LE edema CBC, BMP 12/14/19 07:33 12/14/19 07:33 Current Medications Abacavir Sulfate (Ziagen -) 600 mg PO DAILY [facility] Last Admin: 12/14/19 10:09 Dose: 600 mg Albuterol Sulfate (Ventolin Hfa Inhaler -) 2 puff IH Q6H PRN PRN Reason: SHORTNESS OF BREATH Albuterol/Ipratropium (Duoneb -) 1 amp NEB Q6H PRN PRN Reason: SHORTNESS OF BREATH Aspirin (Asa -) 81 mg PO DAILY [facility] Last Admin: 12/14/19 10:07 Dose: 81 mg Citalopram Hydrobromide (Celexa -) 10 mg PO DAILY [facility] Last Admin: 12/14/19 10:08 Dose: 10 mg Famotidine (Acid Chemicals Distiller) 10 mg PO BID [facility] Last Admin: 12/14/19 10:40 Dose: 10 mg Fluconazole (Diflucan -) 100 mg PO DAILY [facility] Last Admin: 12/14/19 10:08 Dose: 100 mg Heparin Sodium (Porcine) (Heparin -) 5,000 unit SQ TID [facility] Last Admin: 12/14/19 14:24 Dose: 5,000 unit Labetalol HCl (Normodyne -) 200 mg PO BID [facility] Last Admin: 12/14/19 09:01 Dose: Not Given Lamivudine (Epivir Oral Solution -) 50 mg PO DAILY [facility] Last Admin: 12/14/19 10:09 Dose: 50 mg Latanoprost (Xalatan 0.005% Eye Drops -) 1 drop OU HS [facility] Last Admin: 12/13/19 21:53 Dose: Not Given Losartan Potassium (Cozaar -) 100 mg PO DAILY [facility] Last Admin: 12/14/19 09:02 Dose: Not Given Melatonin (Melatonin) 5 mg PO HS PRN PRN Reason: INSOMNIA Last Admin: 12/11/19 21:51 Dose: 5 mg Methylprednisolone Sodium Succinate (Solu-Medrol -) 40 mg IVPUSH DAILY [facility] Stop: 12/15/19 09:59 Last Admin: 12/14/19 10:10 Dose: 40 mg Methylprednisolone Sodium Succinate (Solu-Medrol -) 35 mg IVPUSH DAILY [facility] Stop: 12/16/19 09:59 Methylprednisolone Sodium Succinate (Solu-Medrol -) 30 mg IVPUSH DAILY [facility] Stop: 12/17/19 09:59 Methylprednisolone Sodium Succinate (Solu-Medrol -) 25 mg IVPUSH DAILY [facility] Stop: 12/18/19 09:59 Methylprednisolone Sodium Succinate (Solu-Medrol -) 20 mg IVPUSH DAILY [facility] Stop: 12/19/19 09:59 Methylprednisolone Sodium Succinate (Solu-Medrol -) 10 mg IVPUSH DAILY [facility] Stop: 12/20/19 09:59 Metoclopramide HCl (Reglan Injection -) 5 mg IVPUSH Q8H PRN PRN Reason: NAUSEA AND/OR VOMITING Nifedipine (Procardia Xl -) 90 mg PO DAILY [facility] Last Admin: 12/14/19 09:01 Dose: Not Given Non-Formulary Medication (Sucroferric Oxyhydroxide [Velphoro]) 500 mg PO TID [facility] Polyethylene Glycol (Miralax (For Daily Use) -) 17 gm PO DAILY [facility] Last Admin: 12/13/19 12:40 Dose: Not Given Umeclidinium/Vilanterol (Anoro Ellipta 62.5-25 Mcg Inh) 1 puff IH DAILY [facility] Last Admin: 12/14/19 10:15 Dose: 1 puff 69 y/o M, pmh of HIV, throat cancer s/p radiation at [facility], COPD not on home O2, ESRD (on dialysis M/W/F), CAD with history of Cardiac arrest presented from home with weakness after leaving the hospital. 1. ESRD on HD 2. Dysphagia 3. Oral thrush 4. History of hypertension 5. Anemia s/p dialysis yesterday. No acute need for dialysis today. On tube feeds with free water Decrease Losartan to 50mg daily and discontinue Nifedpine and Labetalol Trend BP, goal < 140/90 but > 100/60 Continue steroids as per primary team Thank you Trey Pereyra DO
[2019-12-14] MEDS ORDERED: SODIUM CHLORIDE 250 ML IV PRN (15:21)
[2019-12-14] MEDS: POLYETHYLENE GLYCOL 3350 119 GM BTL PO SCH (18:22)
[2019-12-14] MEDS: LATANOPROST 0.005% OPHTH SOLN 2.5ML BOTTLE OU SCH (21:40)
[2019-12-15] MEDS: HEPARIN NA (PORCINE) 5,000 UNITS/ML 1ML VIAL SQ SCH ×3 (06:18→22:15)
[2019-12-15 08:05] LABS: HEMATOCRIT 33.6 % (35.4-49); MCHC 32.6 g/dl (32.0-35.9); MEAN CELL VOLUME 101.3 fl (80-96); MEAN PLT VOLUME 9.3 fl (7.5-11.1); PLATELET COUNT 167 K/MM3 (134-434); RBC 3.32 M/mm3 (4.00-5.60); RDW 16.4 % (11.9-15.9); WHITE BLOOD COUNT 9.4 K/mm3 (4.0-10.0)
[2019-12-15 09:08] LABS: BLOOD UREA NITROGEN 62.9 mg/dL (7-18); CALCIUM 8.6 mg/dL (8.5-10.1); PHOSPHOROUS 2.7 mg/dL (2.5-4.9); POTASSIUM 4.2 mmol/L (3.5-5.1)
[2019-12-15 09:16] LABS: CREATININE 9.5 mg/dL (0.55-1.3)
[2019-12-15] MEDS ORDERED: methylPREDNISolone NA SUCC 40 MG/1 ML VIAL IVPUSH SCH (10:00)
[2019-12-15] MEDS ORDERED: PT OWN MED DRAWER 7, Y5N ONE (11:14)
[2019-12-15] MEDS: ASPIRIN 81 MG CHEWABLE TABLETS PO SCH (11:37)
[2019-12-15] MEDS: FAMOTIDINE 10 MG TABLET PO SCH ×2 (11:37→22:14)
[2019-12-15] MEDS: lamiVUDine 10 MG/1 ML BULK BOTTLE PO SCH (11:38)
[2019-12-15] MEDS: CITALOPRAM HYDROBROMIDE 10 MG TABLET PO SCH (11:38)
[2019-12-15] MEDS: FLUCONAZOLE 100 MG TABLET (UD) PO SCH (11:39)
[2019-12-15] MEDS: ABACAVIR SULFATE 300 MG TABLET PO SCH (11:39)
[2019-12-15] MEDS: LABETALOL HCL 200 MG TABLET (FP) PO SCH ×2 (11:39→22:13)
[2019-12-15] MEDS: UMECLIDINIUM/VILANTEROL (ANORO) 62.5/25 MCG INHALER IH SCH (11:40)
[2019-12-15] MEDS: DOLUTEGRAVIR SODIUM 50 MG TABLET (NON-FORMULARY) PO SCH (11:40)
[2019-12-15] MEDS: POLYETHYLENE GLYCOL 3350 119 GM BTL PO SCH (11:41)
--- NOTE | 2019-12-15 16:51 | PN ---
Physical Exam: SUBJECTIVE: Patient seen and examined at bed side , no acute events over night for HD today OBJECTIVE: Vital Signs Period Temp Pulse Resp BP Sys/Montes Pulse Ox Last 24 Hr 97 F-98.5 F 60-83 18-18 104-165/61-103 95 GENERAL: AAOx3 in NAD , with muffled voice , feels tired , left arm fistula with positive thrill HEAD: NC/AT EYES: EOMI, Conjunctiva clear, sclera anicteric ENT: dry mucous membrane NECK: Supple, no JVD, LUNGS: CTA B/L HEART: RRR, , normal s1, s2, murmur no M/R/G ABDOMEN: Soft, ND, NT, +BS 4 Q, no CVA Tenderness LOWER EXTREMITIES: no edema, +2DP pulse, NEUROLOGICAL: No focal deficit. Normal speech. gait not observed. PSYCHIATRIC: Cooperative. Good eye contact. Appropriate mood and affect. SKIN: Warm, dry, Laboratory Results - last 24 hr 12/15/19 12/15/19 07:03 07:03 WBC 9.4 RBC 3.32 L Hgb 11.0 L Hct 33.6 L MCV 101.3 H MCH 33.0 MCHC 32.6 RDW 16.4 H Plt Count 167 MPV 9.3 Sodium 144 Potassium 4.2 Chloride 102 Carbon Dioxide 29 Anion Gap 13 BUN 62.9 H Creatinine 9.5 H* Est GFR (CKD-EPI)AfAm 5.91 Est GFR (CKD-EPI)NonAf 5.10 Random Glucose 85 Calcium 8.6 Phosphorus 2.7 Active Medications Generic Name Dose Route Start Last Admin Trade Name Freq PRN Reason Stop Dose Admin Abacavir Sulfate 600 mg 12/12/19 10:00 12/15/19 11:39 Ziagen - PO 600 mg DAILY JIMENEZ Administration Albuterol Sulfate 2 puff 12/13/19 15:37 Ventolin Hfa Inhaler - IH Q6H PRN SHORTNESS OF BREATH Albuterol/Ipratropium 1 amp 12/13/19 15:35 Duoneb - NEB Q6H PRN SHORTNESS OF BREATH Aspirin 81 mg 12/12/19 10:00 12/15/19 11:37 Asa - PO 81 mg DAILY JIMENEZ Administration Citalopram Hydrobromide 10 mg 12/12/19 10:00 12/15/19 11:38 Celexa - PO 10 mg DAILY JIMENEZ Administration Famotidine 10 mg 12/13/19 22:00 12/15/19 11:37 Acid Supervisor [employer]ing [employer] Stamping PO 10 mg BID JIMENEZ Administration Fluconazole 100 mg 12/14/19 10:00 12/15/19 11:39 Diflucan - PO 100 mg DAILY JIMENEZ Administration Heparin Sodium (Porcine) 5,000 unit 12/13/19 22:00 12/15/19 14:55 Heparin - SQ 5,000 unit TID JIMENEZ Administration Sodium Chloride 250 mls @ 3,000 mls/hr 12/14/19 15:21 Normal Saline - IV 12/15/19 15:21 PRN PRN Hypotension during Dialysis Labetalol HCl 200 mg 12/14/19 10:00 12/15/19 11:39 Normodyne - PO 200 mg BID JIMENEZ Administration Lamivudine 50 mg 12/12/19 10:00 12/15/19 11:38 Epivir Oral Solution - PO 50 mg DAILY JIMENEZ Administration Latanoprost 1 drop 12/11/19 22:00 12/14/19 21:40 Xalatan 0.005% Eye Drops - OU Not Given HS JIMENEZ Losartan Potassium 50 mg 12/14/19 15:21 12/15/19 11:38 Cozaar - PO 50 mg DAILY JIMENEZ Administration Melatonin 5 mg 12/11/19 15:18 12/11/19 21:51 Melatonin PO 5 mg HS PRN Administration INSOMNIA Methylprednisolone Sodium Succinate 35 mg 12/15/19 10:00 12/15/19 11:54 Solu-Medrol - IVPUSH 12/16/19 09:59 35 mg DAILY JIMENEZ Administration Methylprednisolone Sodium Succinate 30 mg 12/16/19 10:00 Solu-Medrol - IVPUSH 12/17/19 09:59 DAILY JIMENEZ Methylprednisolone Sodium Succinate 25 mg 12/17/19 10:00 Solu-Medrol - IVPUSH 12/18/19 09:59 DAILY JIMENEZ Methylprednisolone Sodium Succinate 20 mg 12/18/19 10:00 Solu-Medrol - IVPUSH 12/19/19 09:59 DAILY JIMENEZ Methylprednisolone Sodium Succinate 10 mg 12/19/19 10:00 Solu-Medrol - IVPUSH 12/20/19 09:59 DAILY JIMENEZ Metoclopramide HCl 5 mg 12/11/19 15:21 Reglan Injection - IVPUSH Q8H PRN NAUSEA AND/OR VOMITING Non-Formulary Medication 500 mg 12/11/19 22:00 Sucroferric Oxyhydroxide [Velphoro] PO TID JIMENEZ Polyethylene Glycol 17 gm 12/12/19 10:00 12/15/19 11:41 Miralax (For Daily Use) - PO Not Given DAILY JIMENEZ Umeclidinium/Vilanterol 1 puff 12/12/19 10:00 12/15/19 11:40 Anoro Ellipta 62.5-25 Mcg Inh IH 1 puff DAILY JIMENEZ Administration CBC, BMP 12/15/19 07:03 12/15/19 07:03 ASSESSMENT/PLAN: Patient is a 69 year old male with a history of HTN, hyperlipidemia, COPD, cardiac arrest, ESRD (on HD MWF), HIV, throat cancer s/p radiation therapy, depression, anxiety who presented to the ED to continue care, after eloping from the hospital yesterday. #Dysphagia 11/21 to mucositis/pharyngitis, RT for throat cancer * PEG tube placed on 12/08/2019 * KUB (12/09/2019) - There is some small bowel air distention could represent SBO or ileus. There is no sign of gross pneumoperitoneum. Following injection of contrast into the PEG tube, there was no sign of a leak or obstruction to flow * plan to start PEG tube in the morning once cleared * tube feeding * nystatin oral solution for oral thrush * cont fluconazole for oral mucosities # Hypotensive likley due to low intake , cont tube feeding , will increase fluids with feeding , given 250 CC bolus , hold bP mediciation for bP less than 120 systolic #COPD * was on Solu-medrol 40mg daily since NPO * will continue Solu-medrol 40mg taper over 6 days * continue bronchodilators #ESRD * on dialysis * Nephrology consulted. #HTN * Decrease Losartan to 50mg daily and discontinue Nifedpine and Labetalol * Trend BP, goal < 140/90 but > 100/60 #Depression, anxiety * continue Celexa #HIV * continue HAART #FEN * 250 NS bolus * routine bmp monitoring * tube feeding two eldon increase fluids to 30 ml with feeding #Prophylaxis * Heparin 5000u sq tid #Disposition full code # dispo med surg possible dc in AM Visit type - Emergency Visit Emergency Visit: Yes ED Registration Date: 12/10/19 Care time: The patient presented to the Emergency Department on the above date and was hospitalized for further evaluation of their emergent condition. - New Patient This patient is new to me today: No - Critical Care Critical Care patient: No ATTENDING PHYSICIAN STATEMENT I saw and evaluated the patient. I reviewed the resident's note and discussed the case with the resident. I agree with the resident's findings and plan as documented. SUBJECTIVE: OBJECTIVE: ASSESSMENT AND PLAN:
--- NOTE | 2019-12-15 17:02 | PN ---
Progress Note (short form) - Note Progress Note: Renal follow up for ERSD on HD Seen and examined at the bedside awake and alert offers no acute complaints s/p dialysis yesterday no chest pain, N/V/D on tube feeds has mild throat pain but is improved overall Vital Signs Temperature 97 F L 12/15/19 12:00 Pulse Rate 70 12/15/19 12:00 Respiratory Rate 18 12/15/19 12:00 Blood Pressure 104/64 12/15/19 12:00 O2 Sat by Pulse Oximetry (%) 95 12/14/19 21:00 NAD awake and alert RRR Dec BS soft NT/ND no LE edema left arm AVF CBC, BMP 12/15/19 07:03 12/15/19 07:03 Current Medications Abacavir Sulfate (Ziagen -) 600 mg PO DAILY [facility] Last Admin: 12/15/19 11:39 Dose: 600 mg Albuterol Sulfate (Ventolin Hfa Inhaler -) 2 puff IH Q6H PRN PRN Reason: SHORTNESS OF BREATH Albuterol/Ipratropium (Duoneb -) 1 amp NEB Q6H PRN PRN Reason: SHORTNESS OF BREATH Aspirin (Asa -) 81 mg PO DAILY [facility] Last Admin: 12/15/19 11:37 Dose: 81 mg Citalopram Hydrobromide (Celexa -) 10 mg PO DAILY [facility] Last Admin: 12/15/19 11:38 Dose: 10 mg Famotidine (Acid Twisting Frame Operator) 10 mg PO BID [facility] Last Admin: 12/15/19 11:37 Dose: 10 mg Fluconazole (Diflucan -) 100 mg PO DAILY [facility] Last Admin: 12/15/19 11:39 Dose: 100 mg Heparin Sodium (Porcine) (Heparin -) 5,000 unit SQ TID [facility] Last Admin: 12/15/19 14:55 Dose: 5,000 unit Sodium Chloride (Normal Saline -) 250 mls @ 3,000 mls/hr IV PRN PRN PRN Reason: Hypotension during Dialysis Stop: 12/15/19 15:21 Labetalol HCl (Normodyne -) 200 mg PO BID [facility] Last Admin: 12/15/19 11:39 Dose: 200 mg Lamivudine (Epivir Oral Solution -) 50 mg PO DAILY [facility] Last Admin: 12/15/19 11:38 Dose: 50 mg Latanoprost (Xalatan 0.005% Eye Drops -) 1 drop OU HS [facility] Last Admin: 12/14/19 21:40 Dose: Not Given Losartan Potassium (Cozaar -) 50 mg PO DAILY [facility] Last Admin: 12/15/19 11:38 Dose: 50 mg Melatonin (Melatonin) 5 mg PO HS PRN PRN Reason: INSOMNIA Last Admin: 12/11/19 21:51 Dose: 5 mg Methylprednisolone Sodium Succinate (Solu-Medrol -) 35 mg IVPUSH DAILY [facility] Stop: 12/16/19 09:59 Last Admin: 12/15/19 11:54 Dose: 35 mg Methylprednisolone Sodium Succinate (Solu-Medrol -) 30 mg IVPUSH DAILY [facility] Stop: 12/17/19 09:59 Methylprednisolone Sodium Succinate (Solu-Medrol -) 25 mg IVPUSH DAILY [facility] Stop: 12/18/19 09:59 Methylprednisolone Sodium Succinate (Solu-Medrol -) 20 mg IVPUSH DAILY [facility] Stop: 12/19/19 09:59 Methylprednisolone Sodium Succinate (Solu-Medrol -) 10 mg IVPUSH DAILY [facility] Stop: 12/20/19 09:59 Metoclopramide HCl (Reglan Injection -) 5 mg IVPUSH Q8H PRN PRN Reason: NAUSEA AND/OR VOMITING Non-Formulary Medication (Sucroferric Oxyhydroxide [Velphoro]) 500 mg PO TID [facility] Polyethylene Glycol (Miralax (For Daily Use) -) 17 gm PO DAILY [facility] Last Admin: 12/15/19 11:41 Dose: Not Given Umeclidinium/Vilanterol (Anoro Ellipta 62.5-25 Mcg Inh) 1 puff IH DAILY [facility] Last Admin: 12/15/19 11:40 Dose: 1 puff 69 y/o M, pmh of HIV, throat cancer s/p radiation at [facility], COPD not on home O2, ESRD (on dialysis M/W/F), CAD with history of Cardiac arrest presented from home with weakness after leaving the hospital. 1. ESRD on HD 2. Dysphagia 3. Oral thrush 4. History of hypertension 5. Anemia tolerated dialysis well this am. On tube feeds with free water. Potassium is within normal limits on current tube feed formula. Can be be maintained on the same as an outpatient. Will monitor K closely with dialysis. Continue Losartan to 50mg daily Trend BP, goal < 140/90 but > 100/60 Continue steroids as per primary team possible discharge tomorrow. Thank you Trey Pereyra DO
--- NOTE | 2019-12-15 20:45 | CON.ENT ---
Consult Consult Specialty:: ENT Referred by:: Dr. Hameed Reason for Consultation:: dysphagia, hx throat cancer - History of Present Illness Chief Complaint: dysphagia, voice History of Present Illness: 69 yo M with renal failure, on hemodialysis MWF, hx throat cancer, treated with Radiation Therapy, free of disease per pt. review of chart shows Dr. Cruz examined pt in [facility] 11-30-2019, flexible laryngoscopy performed, no sign of cancer but white exudate suggesting thrush - History Source History Provided By: Patient, Family Member, Medical Record Limitations to Obtaining History: No Limitations - Past Medical History Cardio/Vascular: Yes: HTN, Hyperlipdemia Pulmonary: Yes: Bronchitis, COPD, Pneumonia. 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 History of Recent Travel: No Home Medications - Allergies Allergies/Adverse Reactions: Allergies Allergy/AdvReac Type Severity Reaction Status Date / Time No Known Drug Allergies Allergy Verified 11/02/19 12:27 - Home Medications Home Medications: Ambulatory Orders Abacavir Sulfate [Abacavir] 600 mg PO DAILY 11/26/19 Albuterol Sulfate Inhaler - [Ventolin HFA Inhaler -] 2 puff IH Q6H 11/26/19 Aspirin [ASA -] 81 mg PO DAILY 11/26/19 Citalopram Hydrobromide [Celexa -] 10 mg PO DAILY 11/26/19 Dolutegravir Sodium [Tivicay] 50 mg PO DAILY 11/26/19 Labetalol HCl 400 mg PO BID 11/26/19 Lamivudine [Epivir Hbv] 50 mg PO DAILY 11/26/19 Latanoprost 0.005% Eye Drops [Xalatan 0.005% Eye Drops -] 1 drop OU HS 11/26/19 Lidocaine/Prilocaine Cream [Lidocaine-Prilocaine Cream -] 1 applic TP UTDICT 11/26/19 Ranitidine HCl 300 mg PO DAILY 11/26/19 Sevelamer Carbonate 1,600 mg PO TID 11/26/19 Sucroferric Oxyhydroxide [Velphoro] 500 mg PO TID 11/26/19 Umeclidinium Brm/Vilanterol Tr [Anoro Ellipta 62.5-25 Mcg INH] 1 each IH DAILY 11/26/19 Fluconazole [Diflucan -] 100 mg PO DAILY #30 tablet 12/09/19 Losartan Potassium [Cozaar -] 100 mg PO DAILY #30 tablet 12/09/19 Melatonin 5 mg PO HS PRN 15 Days tab 12/09/19 Nifedipine ER [Procardia XL -] 90 mg PO DAILY #30 tab.er.24 12/09/19 Pantoprazole Sodium [Protonix IV] 40 mg IVPUSH DAILY #30 vial 12/09/19 Polyethylene Glycol 3350 [Miralax 119 gm Btl -] 17 gm PO DAILY #1 bottle 12/09/19 predniSONE [Deltasone -] See Taper PO DAILY #14 tablet 12/09/19 Family Medical History Family History: Unremarkable Review of Systems - Review of Systems HENT: reports: Difficult Swallowing Physical Exam-ENT Vital Signs: Vital Signs Temperature 97 F L 12/15/19 12:00 Pulse Rate 70 12/15/19 12:00 Respiratory Rate 18 12/15/19 12:00 Blood Pressure 104/64 12/15/19 12:00 O2 Sat by Pulse Oximetry (%) 95 12/14/19 21:00 Constitutional: Yes: No Distress, Calm Head: Yes: WNL Face: Yes: WNL Eyes: Yes: WNL Nose: Yes: WNL Oral/Pharynx: Yes: WNL, Other (poor dentition, no lesions oral cavity or oropharynx, voice weak, breathy) Outer Ear: Yes: WNL Neck: Yes: WNL, Other (no mass or node palpable) Imaging - Results Chest X-ray: Report Reviewed Cat Scan: Report Reviewed, Image Reviewed Problem List - Problems (1) Dysphagia Assessment/Plan: pt has PEG Code(s): R13.10 - DYSPHAGIA, UNSPECIFIED Qualifiers: Dysphagia type: pharyngeal phase Qualified Code(s): R13.13 - Dysphagia, pharyngeal phase (2) Laryngeal cancer Assessment/Plan: by hx pt had throat cancer treated with radiation therapy, no evidence of disease on most recent examination voice is breathy recent flexible laryngoscopy showed no tumor, but white exudate c/w thrush recommend: OK with discharge home tonight to office for outpatient follow-up Thank you for consultation, Markell Duong MD FACS
[2019-12-15] MEDS: LATANOPROST 0.005% OPHTH SOLN 2.5ML BOTTLE OU SCH (22:15)
[2019-12-16 00:51] VITALS: BP 111/62; PULSE 87; TEMP 97.6
[2019-12-16] MEDS ORDERED: methylPREDNISolone NA SUCC 40 MG/1 ML VIAL IVPUSH SCH (10:00)
--- NOTE | 2019-12-16 21:38 | DS ---
Physical Exam: SUBJECTIVE: Patient seen and examined stable to dc home OBJECTIVE: PHYSICAL EXAM GENERAL: AAOx3 in NAD , with muffled voice , feels tired , left arm fistula with positive thrill HEAD: NC/AT EYES: EOMI, Conjunctiva clear, sclera anicteric ENT: dry mucous membrane NECK: Supple, no JVD, LUNGS: CTA B/L HEART: RRR, , normal s1, s2, murmur no M/R/G ABDOMEN: Soft, ND, NT, +BS 4 Q, no CVA Tenderness LOWER EXTREMITIES: no edema, +2DP pulse, NEUROLOGICAL: No focal deficit. Normal speech. gait not observed. PSYCHIATRIC: Cooperative. Good eye contact. Appropriate mood and affect. SKIN: Warm, dry, LABS CBC, BMP 12/15/19 07:03 12/15/19 07:03 HOSPITAL COURSE: Date of Admission:12/10/19 Date of Discharge: 12/16/19 Patient is a 69 year old male with a history of HTN, hyperlipidemia, COPD, cardiac arrest, ESRD (on HD MWF), HIV, throat cancer s/p radiation therapy, depression, anxiety who presented to the ED to continue care, after eloping from the hospital yesterday. #Dysphagia 11/21 to mucositis/pharyngitis, RT for throat cancer * PEG tube placed on 12/08/2019 * KUB (12/09/2019) - There is some small bowel air distention could represent SBO or ileus. There is no sign of gross pneumoperitoneum. Following injection of contrast into the PEG tube, there was no sign of a leak or obstruction to flow * plan to start PEG tube in the morning once cleared * tube feeding * nystatin oral solution for oral thrush * cont fluconazole for oral mucosities * tube feeding two eldon increase fluids to 30 ml with feeding # Hypotensive likley due to low intake , cont tube feeding , will increase fluids with feeding , given 250 CC bolus , hold bP mediciation for bP less than 120 systolic #COPD * was on Solu-medrol 40mg daily since NPO * will continue Solu-medrol 40mg taper over 6 days * continue bronchodilators #ESRD * on dialysis * Nephrology consulted. #HTN * Decrease Losartan to 50mg daily and discontinue Nifedpine and Labetalol * Trend BP, goal < 140/90 but > 100/60 #Depression, anxiety * continue Celexa #HIV * continue HAART #full code # dispo dc home Minutes to complete discharge: 50 Discharge Summary Problems reviewed: Yes Reason For Visit: WEAKNESS Condition: Stable - Instructions Diet, Activity, Other Instructions: You were admitted to the hospital with complaints of shortness of breath, and difficulty swallowing. You were treated with steroids, and breathing treatments. A PEG tube was placed to allow for feedings. You are stable for discharge home. Continue taking your medications as directed. Your Labetalol was changed to 200mg twice a day you can use it only if your blood pressure above 150 systolic Your Procardia XL was held due to low blood pressures. Continue monitoring your blood pressures at home and keep a log to discuss with your primary care physician at your follow up appointment. You will continue taking steriods in a tapered dose: Prednisone 30mg Prednisone 30mg Prednisone 30mg Prednisone 20mg Prednisone 20mg Prednisone 20mg Prednisone 10mg Prednisone 10mg Prednisone 10mg STOP taking Prednisone after 12/24/2019. TUBE FEEDING: Two Eldon feeds at 50mL/ hour with additional water flushes of 30mL / hour. Discuss these medications with your primary care physician. Be sure to schedule a follow up appointment within one- two days after hospital discharge. Follow up with your kettle skimmer within one - two days after discharge. A referral to Dr. Ruby has been provided Follow up with your Quality Improvement Manager within one - two days after discharge. A referral to Dr. Pereyra has been provided. Follow up with ENT physician Dr. Duong within one week of discharge. A referral has been provided. Follow up with seismograph recorder/ oncologist Dr. Rayo within one week after discharge. A referral has been provided. Return to the nearest Emergency Department if your experience worsening symptoms , subjective fevers, chills, shortness of breath, chest pain, palpitations, abdominal pain, nasuea, vomiting, fall, loss of consciousness, or any trauma. Referrals: Mukul Ruby MD [Staff Physician] - 12/17/19 Sheridan Ruggiero NP [Primary Care Provider] - 12/17/19 Olivia Rayo MD [Staff Physician] - 1 Week Trey Pereyra MD [Staff Physician] - 12/17/19 Markell Duong MD [Staff Physician] - 1 Week Disposition: VNS/HOME HEALTH CARE - Home Medications Comprehensive Discharge Medication List: Ambulatory Orders Abacavir Sulfate [Abacavir] 600 mg PO DAILY 11/26/19 Albuterol Sulfate Inhaler - [Ventolin HFA Inhaler -] 2 puff IH Q6H 11/26/19 Aspirin [ASA -] 81 mg PO DAILY 11/26/19 Citalopram Hydrobromide [Celexa -] 10 mg PO DAILY 11/26/19 Dolutegravir Sodium [Tivicay] 50 mg PO DAILY 11/26/19 Lamivudine [Epivir Hbv] 50 mg PO DAILY 11/26/19 Latanoprost 0.005% Eye Drops [Xalatan 0.005% Eye Drops -] 1 drop OU HS 11/26/19 Lidocaine/Prilocaine Cream [Lidocaine-Prilocaine Cream -] 1 applic TP UTDICT 05/08 Ranitidine HCl 300 mg PO DAILY 11/26/19 Sucroferric Oxyhydroxide [Velphoro] 500 mg PO TID 11/26/19 Umeclidinium Brm/Vilanterol Tr [Anoro Ellipta 62.5-25 Mcg INH] 1 each IH DAILY 11/26/19 Fluconazole [Diflucan -] 100 mg PO DAILY #30 tablet 12/09/19 Losartan Potassium [Cozaar -] 100 mg PO DAILY #30 tablet 12/09/19 Melatonin 5 mg PO HS PRN 15 Days tab 12/09/19 Polyethylene Glycol 3350 [Miralax 119 gm Btl -] 17 gm PO DAILY #1 bottle Prednisone See Taper PO ASDIR 9 Days #18 tablet 12/15/19 This patient is new to me today: No Emergency Visit: Yes ED Registration Date: 12/10/19 Care time: The patient presented to the Emergency Department on the above date and was hospitalized for further evaluation of their emergent condition. Critical Care patient: No - Discharge Referral Referred to [facility] Med P.C.: No ATTENDING PHYSICIAN STATEMENT I saw and evaluated the patient. I reviewed the resident's note and discussed the case with the resident. I agree with the resident's findings and plan as documented. SUBJECTIVE: OBJECTIVE: ASSESSMENT AND PLAN:
[2019-12-17] MEDS ORDERED: methylPREDNISolone NA SUCC 40 MG/1 ML VIAL IVPUSH SCH (10:00)
[2019-12-18] MEDS ORDERED: methylPREDNISolone NA SUCC 40 MG/1 ML VIAL IVPUSH SCH (10:00)
[2019-12-19] MEDS ORDERED: methylPREDNISolone NA SUCC 40 MG/1 ML VIAL IVPUSH SCH (10:00)
== END 2019-12-15 22:35 | disposition home health service (06) | DRG 146 ==
LOC: JER 16:50 → JERBED 19:46 → J5S 23:20
PROVIDERS: ADMIT Internal Medicine
PROC: 5A1D70Z Performance of Urinary Filtration, Intermittent, Less than 6 Hours Per Day (ICD-10-PCS; principal; 2019-12-15)
DX: C32.9 Malignant neoplasm of larynx, unspecified (principal); E43 Unspecified severe protein-calorie malnutrition; N18.6 End stage renal disease; I12.0 Hypertensive chronic kidney disease with stage 5 chronic kidney disease or end stage renal disease; B37.0 Candidal stomatitis; R13.10 Dysphagia, unspecified; Z68.20 Body mass index [BMI] 20.0-20.9, adult; I95.9 Hypotension, unspecified; J44.9 Chronic obstructive pulmonary disease, unspecified; E78.5 Hyperlipidemia, unspecified; F41.8 Other specified anxiety disorders; Z21 Asymptomatic human immunodeficiency virus [HIV] infection status; Z99.2 Dependence on renal dialysis; K21.9 Gastro-esophageal reflux disease without esophagitis; D64.9 Anemia, unspecified; E87.6 Hypokalemia; R53.1 Weakness
CPT/HCPCS: 36415; 71045-TC-FY; 71046-TC-FY; 74018-TC-FY; 80048; 80053; 82550; 82553; 82962; 83735; 84100; 84484; 85025; 85027; 93005; 93010; 94640; 97116-GP; 97162-GP; 99285-25; J1644